=== PATIENT | male | born 1950 | race Caucasian/White ===

== ENCOUNTER 2023-01-02 09:15 | Outpatient (OUT) | payer MEDICARE, OTHER, SELFPAY ==
--- NOTE | 2023-01-02 09:31 | XR_ITS ---
[address] [address] Patient Name: GERRY LAY MRN: [id number] date: 1950 Sex: M Assigned Patient Location: LAB Current Patient Location: LAB Accession/Order Number: [id number] Exam Date: 01/02/2023 09:40 Report Date: 01/02/2023 10:07 At the request of: SERGIO CONNELL Procedure: XR chest 2V EXAM: XR chest 2V HISTORY: Hypertension I10 COMPARISON: None. TECHNIQUE: PA and lateral views of the chest. FINDINGS: The cardiomediastinal silhouette is normal. No focal consolidation is identified. There is no pneumothorax. No pleural effusion is noted. The osseous structures are intact. IMPRESSION: No acute cardiopulmonary process. Electronically authenticated by: DOMENIC RIVERA Date: 01/02/2023 10:07
[2023-01-02 09:35] LABS: Basophils Absolute Auto 0.1 10^3/uL (0.0-0.1); Basophils Percent Auto 1.2 % (0.2-2.0); Eosinophils Absolute Auto 0.5 10^3/uL (0.0-0.7); Eosinophils Percent Auto 10.2 % (0.9-7.0); Hematocrit 47.4 % (42.0-54.0); Immature Granulocytes Abs Auto 0.01 10^3/uL (0.00-0.03); Immature Granulocytes Pct Auto 0.2 % (0.0-0.5); Lymphocytes Absolute Auto 1.5 10^3/uL (1.2-3.8); Lymphocytes Percent Auto 30.6 % (20.5-60.0); Mean Corpuscular HGB Conc 33.8 g/dL (29.9-35.2); Mean Corpuscular Hemoglobin 31.7 pg (25.9-34.0); Mean Corpuscular Volume 93.9 fL (80.0-94.0); Mean Platelet Volume 10.3 fL (9.5-13.5); Monocytes Absolute Auto 0.6 10^3/uL (0.3-0.8); Monocytes Percent Auto 12.3 % (1.7-12.0); Neutrophils Absolute Auto 2.2 10^3/uL (1.4-6.5); Neutrophils Percent Auto 45.5 % (43.0-75.0); Platelet Count 176 10^3/uL (150-450); Red Blood Count 5.05 10^6/uL (4.70-6.10); White Blood Count 4.8 10^3/uL (4.0-11.0)
[2023-01-02 12:56] LABS: Anion Gap 11.8; BUN Creatinine Ratio 21.6; Calcium 9.7 mg/dL (8.5-10.1); Carbon Dioxide 29.7 mmol/L (21.0-32.0); Chloride 101 mmol/L (98-107); Estimated GFR (African America >60 (>=60); Estimated GFR (Non-African Ame >60 (>=60); Glucose 118 mg/dL (74-106); Potassium 3.5 mmol/L (3.5-5.1); Sodium 139 mmol/L (136-145); Thyroid Stimulating Hormone 2.218 uIU/mL (0.358-3.740)
[2023-01-02 13:06] LABS: Free T4 1.31 ng/dL (0.76-1.46)
== END 2023-01-02 09:16 | disposition home or self-care (01) ==
PROVIDERS: Family Provider Optometrist; PCP Family Medicine; Visit Provider Family Medicine
DX: I10 Essential (primary) hypertension (principal); E03.9 Hypothyroidism, unspecified
CPT/HCPCS: 36415; 71046; 80048; 84439; 84443; 85025

== ENCOUNTER 2023-01-23 09:43 | Outpatient (OUT) | payer MEDICARE, OTHER, SELFPAY ==
--- NOTE | 2023-01-23 09:51 | CT_ITS ---
[address] [address] Patient Name: GERRY LAY MRN: [id number] date: 1950 Sex: M Assigned Patient Location: CT Current Patient Location: CT Accession/Order Number: [id number] Exam Date: 01/23/2023 10:40 Report Date: 01/23/2023 12:25 At the request of: SERGIO CONNELL Procedure: CT chest w con EXAMINATION: CT chest w con HISTORY: Dyspnea On Exertion R06.09 , low O2 readings, dizziness COMPARISON: No relevant comparison available. TECHNIQUE: Multi-planar CT images were created with IV contrast. Axial, Coronal, and Sagittal images. Dose reduction techniques were achieved by using automated exposure control and/or adjustment of mA and/or kV according to patient size and/or use of iterative reconstruction technique. FINDINGS: LUNGS: 6 mm nodule left lower lobe axial image 62, irregularly-shaped. No additional pulmonary nodule or mass. No bronchiectasis or peribronchial thickening PLEURA: No mass, effusion, or pneumothorax. VASCULATURE: No filling defect within the central pulmonary arterial tree to suggest a pulmonary embolus LONG: No mass or adenopathy. MEDIASTINUM: No mass or adenopathy. CARDIAC: No enlargement or pericardial effusion. 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 No dissection CHEST WALL: No mass or axillary adenopathy. BONES: No bone lesion or fracture. Moderate diffuse spondylosis LIMITED ABDOMEN: Diffuse hypoattenuation of the liver, hepatic steatosis. Surgical clips from cholecystectomy OTHER: Negative. CT/CT chest w con IMPRESSION: No central pulmonary thromboembolic disease 6 mm ill-defined left lower lobe nodule, nonspecific Electronically authenticated by: BUNNY GOLDSTEIN Date: 01/23/2023 12:25
== END 2023-01-23 09:44 | disposition home or self-care (01) ==
LOC: CT 09:43
PROVIDERS: Family Provider Optometrist; PCP Family Medicine; Visit Provider Family Medicine
DX: R06.09 Other forms of dyspnea (principal); R42 Dizziness and giddiness; R91.1 Solitary pulmonary nodule
CPT/HCPCS: 71260; Q9967

== ENCOUNTER 2023-02-20 06:54 | Outpatient (RCR) | payer MEDICARE, OTHER, SELFPAY | END 2023-02-21 16:19 | disposition home or self-care (01) | LOC: PT 06:54 | PROVIDERS: Family Provider Optometrist; PCP Family Medicine; Visit Provider Family Medicine | DX: H81.13 Benign paroxysmal vertigo, bilateral (principal) | CPT/HCPCS: 97110; 97161 ==

== ENCOUNTER 2023-03-16 07:59 | Outpatient (OUT) | payer MEDICARE, OTHER, SELFPAY ==
--- NOTE | 2023-03-16 08:22 | CT_ITS ---
[address] [address] Patient Name: GERRY LAY MRN: [id number] date: 1950 Sex: M Assigned Patient Location: CT Current Patient Location: CT Accession/Order Number: [id number] Exam Date: 03/16/2023 08:20 Report Date: 03/16/2023 11:01 At the request of: SERGIO CONNELL Procedure: CT sinus wo con EXAM: CT sinus wo con CLINICAL INDICATION: Paroxysmal positional vertigo due to bilateral vestibular COMPARISON: None TECHNIQUE: Multiple thin axial images were obtained through the paranasal sinuses without the use of IV contrast. Additional coronal and sagittal reformatted images were submitted for evaluation. Dose reduction techniques were achieved by using automated exposure control and/or adjustment of mA and/or kV according to patient size and/or use of iterative reconstruction technique. FINDINGS: Frontal Sinuses: Clear. Frontal Recesses: Clear. Maxillary Sinuses: Right maxillary sinus is well aerated. Minimal frothy secretions in the left maxillary sinus. 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 Maxillary Infundibula: Clear. Ethmoid Sinuses: Clear. Sphenoid Sinuses: Clear. Sphenoethmoidal Recesses: Clear. Air-fluid levels: None. Periosteal thickening: None. Nasal Passage: Clear. Nasal Septum: Deviated towards the left. Lamina Papyracea: Intact. Ethmoidal Notch: No supraorbital pneumatization of ethmoid air cells above the anterior ethmoidal notch. Orbital Contents: Normal. Soft Tissues: Normal. CT/CT sinus wo con IMPRESSION: 1. Minimal frothy secretions in the left maxillary sinus. Remainder of the paranasal sinuses are well-aerated. No evidence of chronic sinusitis. 2. Bilateral ostiomeatal complexes are patent. Electronically authenticated by: TONA MESSER Date: 03/16/2023 11:01
== END 2023-03-16 08:00 | disposition home or self-care (01) ==
LOC: CT 07:59
PROVIDERS: Family Provider Optometrist; PCP Family Medicine; Visit Provider Family Medicine
DX: H81.13 Benign paroxysmal vertigo, bilateral (principal)
CPT/HCPCS: 70486

== ENCOUNTER 2023-05-04 09:04 | Outpatient (OUT) | payer MEDICARE, OTHER, SELFPAY ==
--- NOTE | 2023-05-04 09:25 | CT_ITS ---
[address] [address] Patient Name: GERRY LAY MRN: [id number] date: 1950 Sex: M Assigned Patient Location: LAB Current Patient Location: LAB Accession/Order Number: [id number] Exam Date: 05/04/2023 09:36 Report Date: 05/04/2023 23:07 At the request of: SERGIO CONNELL Procedure: CT chest w con EXAMINATION: CT chest w con HISTORY: Left Lower Lobe Pulmonary Nodule R91.1 , follow-up COMPARISON: CT chest 01/23/2023 TECHNIQUE: Multi-planar CT images were obtained without and/or with IV contrast as indicated by examination type. Axial, Coronal, and Sagittal images. Dose reduction techniques were achieved by using automated exposure control and/or adjustment of mA and/or kV according to patient size and/or use of iterative reconstruction technique. FINDINGS: LUNGS: Stable 6 mm irregular nodule versus infiltrate/scarring within the anterior lateral aspect of left lower lobe; adjacent mild stranding suggests scarring. Lungs are otherwise clear. PLEURA: No mass, effusion, or pneumothorax. VASCULATURE: No abnormality. LONG: No mass or adenopathy. MEDIASTINUM: No mass or adenopathy. CARDIAC: Atherosclerotic coronary artery disease. No pericardial effusion or significant enlargement. AORTA: No aneurysm or dissection. CHEST WALL: No mass or axillary adenopathy. BONES: No bone lesion or fracture. LIMITED ABDOMEN: No suspicious findings Limited images of the upper abdomen. OTHER: Negative. CT/CT chest w con IMPRESSION: 1. Stable 6 mm nodule versus scarring/infiltrate within left lower lobe over the past 3 months. Follow-up CT chest at 6, 12, and 24 months after discovery is recommended to document stability over a two-year period. Electronically authenticated by: AIXA DURANT Date: 05/04/2023 23:07
[2023-05-04 09:31] LABS: Estimated GFR (African America >60 (>=60); Estimated GFR (Non-African Ame >60 (>=60)
== END 2023-05-04 09:05 | disposition home or self-care (01) ==
LOC: LAB 09:04
PROVIDERS: Family Provider Optometrist; PCP Family Medicine; Visit Provider Family Medicine
DX: R91.1 Solitary pulmonary nodule (principal)
CPT/HCPCS: 36415; 71260; 82565; Q9967

== ENCOUNTER 2023-05-24 13:20 | Outpatient (OUT) | payer MEDICARE, OTHER, SELFPAY ==
--- NOTE | 2023-05-24 13:51 | XR_ITS ---
[address] [address] Patient Name: GERRY LAY MRN: [id number] date: 1950 Sex: M Assigned Patient Location: LAB Current Patient Location: Accession/Order Number: [id number] Exam Date: 05/24/2023 13:55 Report Date: 05/25/2023 00:40 At the request of: LUPE CAMACHO Procedure: XR abdomen 1V EXAMINATION: XR abdomen 1V HISTORY: Kidney Stone follow-up COMPARISON: XR KUB 05/03/2022 FINDINGS: KIDNEY/URETER - RIGHT: Small calcification projecting over kidney. KIDNEY/URETER - LEFT: Several small stones projecting over kidney. PELVIS: No visible ureteral stones. Stable pelvic calcifications favoring phleboliths. BOWEL: No abnormal dilation or deviation. BONES: No acute abnormality. Degenerative changes of the right hip joint. Prior left hip joint replacement. OTHER: Negative. No abnormal gaseous collections. XR/XR abdomen 1V IMPRESSION: 1. Bilateral nonobstructing nephrolithiasis. Electronically authenticated by: AIXA DURANT Date: 05/25/2023 00:40
[2023-05-24 14:50] LABS: Prostate Specific Antigen Dx 2.08 ng/mL (<=4.00)
== END 2023-05-24 13:21 | disposition home or self-care (01) ==
LOC: LAB 13:23
PROVIDERS: Family Provider Optometrist; PCP Family Medicine; Visit Provider Urology
DX: N20.0 Calculus of kidney (principal); N40.1 Benign prostatic hyperplasia with lower urinary tract symptoms
CPT/HCPCS: 36415; 74018; 84153

== ENCOUNTER 2023-10-29 13:09 | Outpatient (OUT) | payer MEDICARE, OTHER, SELFPAY ==
--- NOTE | 2023-10-29 13:40 | XR_ITS ---
The [address] [address] Patient Name: GERRY LAY MRN: [id number] date: 1950 Sex: M Assigned Patient Location: LAB Current Patient Location: LAB Accession/Order Number: [id number] Exam Date: 10/29/2023 13:50 Report Date: 10/29/2023 15:50 At the request of: LUPE CAMACHO Procedure: XR abdomen 1V EXAMINATION: XR abdomen 1V HISTORY: Kidney Stone COMPARISON: 05/24/2023 FINDINGS: KIDNEY/URETER - RIGHT: No visible renal or ureteral calcifications. KIDNEY/URETER - LEFT: Multiple stable left nephroliths measuring up to 4 mm PELVIS: No visible ureteral calcifications. Any visible calcifications favor phleboliths. BOWEL: No abnormal dilation or deviation. BONES: Moderate to severe degenerative changes of the spine. Moderate right hip osteoarthropathy. Left upper arthroplasty OTHER: Negative. No abnormal gaseous collections. XR/XR abdomen 1V IMPRESSION: Stable left nephrolithiasis Electronically authenticated by: BUNNY GOLDSTEIN Date: 10/29/2023 15:50
== END 2023-10-29 13:10 | disposition home or self-care (01) ==
LOC: LAB 13:13
PROVIDERS: Family Provider Optometrist; PCP Family Medicine; Visit Provider Urology
DX: N40.1 Benign prostatic hyperplasia with lower urinary tract symptoms (principal); N20.0 Calculus of kidney
CPT/HCPCS: 36415; 74018; 84153

== ENCOUNTER 2023-11-30 07:24 | Outpatient (OUT) | payer MEDICARE, OTHER, SELFPAY ==
--- OUTSIDE RECORDS SUMMARY | 2023-11-30 07:38 | XMS_ITS | CCD ---
Author Organization [facility] Care Team Providers Care Manager Furniture Name Role Phone REGINA CONNELL Primary Care Physician KO, DR REGINA Maldonado Attending Unavailable CONNELL, DR REGINA Maldonado Admitting Unavailable CONNELL, DR REGINA Maldonado Primary Care Unavailable Nidhi, DR Varner Consulting Unavailable KO, DR REGINA Maldonado Consulting Unavailable QUILES, DR ZULEIKA Ibrahim Consulting Unavailabl e DOUG, DR ANDRADE Attending Unavailable DOUG, DR ANDRADE Admitting Unavailable CONNELL, DR REGINA Maldonado Primary Care Unavailable BEAVER, DR ANDRADE Consulting Unavailable Ziebdaria, DR Varner Consulting Unavailable CONNELL, DR REGINA Maldonado Consulting Unavailable CONNELL, DR REGINA Maldonado Attending Unavailable CONNELL, DR REGINA Maldonado Admitting Unavailable CONNELL, DR REGINA Maldonado Primary Care Unavailable CONNELL, DR REGINA Maldonado Consulting Unavailable CONNELL, DR REGINA Maldonado Attending Unavailable CONNELL, DR REGINA Maldonado Admitting Unavailable CONNELL, DR REGINA Maldonado Primary Care Unavailable DOUG, DR ANDRADE Attending Unavailable DOUG, DR ANDRADE Admitting Unavailable CONNELL, DR REGINA Maldonado Primary Care Unavailable DOUG, DR ANDRADE Consulting Unavailable DOUG, DR ANDRADE Attending Unavailable BEAVER, DR ANDRADE Admitting Unavailable BEAVER, DR ANDRADE Consulting Unavailable KO, DR REGINA Maldonado Primary Care Unavailable RADHA PATEL Consulting Unavailable Regina Connell Unavailable BETSY CIFUENTES Attending Unavailable REGINA CONNELL Referring SUKHDEEP Kaye Attending Unavailable DO Sukhdeep Crockett Attending Provider [phone] MD Regina Connell Primary Care Provider Sukhdeep Crockett Attending Unavailable Sukhdeep Crockett Admitting Unavailable Regina Connell Primary Care Unavailable Juan BEAVER Attending Unavailable Juan BEAVER Attending Unavailable Juan BEAVER Attending Unavailable Allergies Allergy Classification Reported Allergen(s) Allergy Type Date of Onset Reaction(s) Facility (3 sources) Acetaminophen / oxyCODONE; Translations: [acetaminophen-oxyc odone] Drug Allergy Nausea and vomiting (disorder) [facility] Comment on above: Can take Calpine or hy drocodone without issue (17 sources) Codeine; Translations: [codeine] Drug Allergy 07-06-20 15 Nausea present (context-depen dent category) [facility] (6 sources) Penicillins; Translations: [penicillins] Drug allergy 07-09-18 62 fever [facility] (9 sources) Prochlorperazine; Translations: [prochlorperazine] Drug Allergy pt states family hx he has never had. sister x2 severe reaction muscle rigidity, Unknown [facility] (1 source) Acetaminophen / oxyCODONE Drug Allergy [facility] (1 source) Codeine Drug Allergy 09-16-19 14 [facility] (1 source) Prochlorperazine Drug Allergy 07-09-18 62 [facility] (11 sources) Penicillin G Drug Allergy Unknown [facility] Other (8 sources) Substance with penicillin structure and antibacterial mechanism of action (substance) Drug allergy 04-01-20 13 Unknown [facility] Other (8 sources) Compazine *ANTIPSYCHOTICS/ANT IMANIC AGENTS* Propensity to adverse reactions 04-01-20 13 Unknown [facility] Other (2 sources) patient allergy list reviewed by nurse or physicia Propensity to adverse reactions 11-08-19 14 Comment:Done [facility] Other (2 sources) Allergies Reconciled Propensity to adverse reactions Unknown [facility] Other (1 source) Codeine Drug Allergy 06-14-20 23 [facility] Rep[facility] (1 source) Penicillin Drug Allergy 06-14-20 23 [facility] (1 source) Prochlorperazine Drug Allergy 06-14-20 [facility] (1 source) Unable to Assess Drug allergy (disorder) 06-21-20 [facility] Rep[facility] (1 source) Acetaminophen / oxyCODONE; Translations: [Percocet 5/325] Drug Allergy [facility] Repository Medications Current Medications Medication Drug Class(es) Dates Sig (Normalized) Sig (Original) acetaminophen 325 mg / HYDROcodone bitartrate 5 mg oral tablet (1 source) Opioid Agonist Start: 1 Calpine 325 mg-5 mg oral tablet 1 tab(s), Oral, TID for pain, 20 tab(s), Refill(s) 0, [id number], 177.8, cm, 06/07/21 13:24:00 EST, Height/Length Dosing, 113, kg, 06/07/21 13:24:00 EST, Weight Dosing Start Date: 06/20/21 Status: Ordered CoQ10 (3 sources) Start: 1 take 300 mg by mouth once daily CoQ10 300 mg, Oral, Daily, Refills(s) 0, Prophylaxis Start Date: 04/21/21 Status: Ordered hydroCHLOROthiazide 25 mg oral tablet (14 sources) Thiazide Diuretic Start: 6 take 1 tablet by mouth once daily hydrochlorothiazide 25 mg Tab 25 mg = 1 tab(s), Oral, Daily, Refills(s) 0 Start Date: 01/26/16 Status: Ordered levothyroxine sodium 0.088 mg oral tablet (14 sources) l-Thyroxine Start: 3 take 1 tablet by mouth every twenty-four hours Levothyroxine Sodium 88 MCG 1 tablet Orally Once a day for 90 days Aug, Active Start: 06-07-2021 take 1 tablet by sondra th once daily levothyroxine 75 mcg (0.075 mg) Tab 75 mcg = 1 tab(s), Oral, Daily, Thyroid Start Date: 06/07/21 Status: Ordered Start: 06-07-2021 take 1 tablet by sondra th once daily levothyroxine 75 mcg (0.075 mg) Tab 75 mcg = 1 tab(s), Oral, Daily, Thyroid Start Date: 06/07/21 Status: Ordered loratadine 10 mg oral tablet (11 sources) take 1 tablet by mouth every twenty-four hours Claritin 10 MG 1 tablet Orally Once a day Active ondansetron 4 mg oral tablet (6 sources) Serotonin-3 Receptor Antagonist take 1 tablet by mouth three times daily as needed Ondansetron HCl 4 MG 1 tablet Orally tid prn for 10 days Active rosuvastatin calcium 20 mg oral tablet (14 sources) HMG-CoA Reductase Inhibitor Start: 08-16-19 take 1 tablet by mouth every twenty-four hours Rosuvastatin Calcium 20 MG 1 tablet Orally Once a day for 90 days Aug, Active Start: 11-24-2016 take 20 mg by mouth at bedtime Crestor 20 mg, Oral, Bedtime, Refills(s) 0, High cholesterol Start Date: 11/24/16 Status: Ordered tadalafil 20 mg oral tablet (1 source) Phosphodiesterase 5 Inhibitor Start: 11-02-2023 Cialis 20 mg Tab 20 mg = 1 tab(s), Oral, As Directed, PRN erectile dysfunction, # 30 tab(s), Refills(s) 3, Pharmacy: [id number], 178, cm, 11/02/23 11:57:00 EDT, Height/Length Dosing, 102, kg, 11/02/23 11:57:00 EDT, Weight Dosing Start Date: 11/02/23 Status: Ordered tamsulosin hydrochloride 0.4 mg oral capsule (14 sources) alpha-Adrenergic Jori Start: 01-17-2021 take 1 capsule by mouth twice daily Flomax 0.4 mg Cap 0.4 mg = 1 cap(s), Oral, BID, # 180 cap(s), Refills(s) 3, Pharmacy: [id number], 178, cm, 05/29/22 9:35:00 EST, Height/Length Dosing, 102.2, kg, 05/29/22 9:35:00 EST, Weight Dosing Start Date: 11/02/22 Status: Ordered Completed/Discontinued Medications Medication Drug Class(es) Dates Sig (Normalized) Sig (Original) methylPREDNISolone (11 sources) Corticosteroid Start: 03-01-2015 Depo-Medrol 80 mg Feb, 80 mg sulfamethoxazole 800 mg / trimethoprim 160 mg oral tablet (8 sources) Dihydrofolate Reductase Inhibitor Antibacterial, Sulfonamide Antimicrobial Start: 02-22-2023 take 1 tablet by mouth every twelve hours Bactrim DS 800-160 MG 1 tablet Orally Twice a day for 10 day(s) Feb, Not-Taking Problems Active Problems Problem Classification Problem Date Documented Date Episodic/Chronic Allergic reactions (16 sources) Contact dermatitis due to drugs AND/OR medicine; Translations: [Contact dermatitis and other eczema due to drugs and medicines in contact with skin] Onset: 6 Episodic Calculus of urinary tract (19 sources) Kidney stone; Translations: [Calculus of kidney] Onset: 5 Episodic Comment on above: in 2013 Conditions associated with dizziness or vertigo (2 sources) Benign paroxysmal vertigo, bilateral Episodic Diabetes mellitus without complication (9 sources) Other abnormal glucose; Translations: [Abnormal glucose level] Onset: 2 Episodic Disorders of lipid metabolism (20 sources) Hyperlipidemia; Translations: [Hyperlipidemia, unspecified] Onset: 5 04-14-2020 Chronic Essential hypertension (20 sources) Essential (primary) hypertension; Translations: [Essential hypertension] Onset: 6 Chronic Genitourinary symptoms and ill-defined conditions (6 sources) Microscopic hematuria; Translations: [Nocturia] 04-21-2021 Episodic Hyperplasia of prostate (19 sources) Benign prostatic hypertrophy with outflow obstruction; Translations: [Benign prostatic hyperplasia with lower urinary tract symptoms] Onset: 6 Chronic Immunizations and screening for infectious disease (8 sources) Vaccination given; Translations: [Encounter for immunization] Episodic Malaise and fatigue (9 sources) Other fatigue; Translations: [Fatigue] Onset: 2 Episodic Neoplasms of unspecified nature or uncertain behavior (8 sources) Neoplasm of uncertain behavior of skin; Translations: [Neoplasm of uncertain behavior of skin] Episodic Other circulatory disease (4 sources) Other specified symptoms and signs involving the circulatory and respiratory systems; Translations: [OTH SPEC SX SIGNS INVLV CIRC RS] Onset: 2 Episodic Other circulatory disease (8 sources) Cardiovascular symptoms; Translations: [Other specified symptoms and signs involving the circulatory and respiratory systems] Episodic Other circulatory disease (8 sources) Elevated blood-pressure reading without diagnosis of hypertension; Translations: [Elevated blood-pressure reading, without diagnosis of hypertension] Episodic Other connective tissue disease (8 sources) Pain in left lower limb; Translations: [Pain in left leg] Episodic Other diseases of kidney and ureters (1 source) Urinary tract obstruction; Translations: [Other obstructive and reflux uropathy] Onset: 2 Episodic Other lower respiratory disease (1 source) Other forms of dyspnea Episodic Other lower respiratory disease (2 sources) Nodule of lung; Translations: [Solitary pulmonary nodule] Episodic Other lower respiratory disease (1 source) Solitary pulmonary nodule Episod ic Other male genital disorders (2 sources) Male erectile dysfunction, unspecified; Translations: [Erectile dysfunction] Onset: 4 Chronic Other non-epithelial cancer of skin (3 sources) History of malignant neoplasm of skin 04-14-2020 Episodic Other nutritional; endocrine; and metabolic disorders (8 sources) Obese class I; Translations: [Body mass index (BMI) 34.0-34.9, adult] Chronic Other nutritional; endocrine; and metabolic disorders (16 sources) Obese class II; Translations: [Body mass index (BMI) 36.0-36.9, adult] Onset: 9 Chronic Other nutritional; endocrine; and metabolic disorders (8 sources) Obesity; Translations: [Obesity, unspecified] Onset: 5 Chronic Other nutritional; endocrine; and metabolic disorders (3 sources) History of hypercholesterolemia 11-24-2016 Episodic Other screening for suspected conditions (not mental disorders or infectious disease) (4 sources) Raised prostate specific antigen; Translations: [Elevated prostate specific antigen [PSA]] Onset: 4 04-14-2020 Episodic Other upper respiratory disease (8 sources) Seasonal allergic rhinitis; Translations: [Other seasonal allergic rhinitis] Onset: 9 Chronic Other upper respiratory disease (8 sources) Allergic rhinitis; Translations: [Allergic rhinitis, cause unspecified] Onset: 6 Chronic Other upper respiratory infections (8 sources) Chronic sinusitis; Translations: [Chronic sinusitis, unspecified] Chronic Residual codes; unclassified (8 sources) Requires influenza virus vaccination; Translations: [Need for prophylactic vaccination and inoculation, Influenza] Episodic Thyroid disorders (20 sources) Hypothyroidism; Translations: [Hypothyroidism, unspecified] Onset: 7 04-14-2020 Chronic Transient cerebral ischemia (8 sources) Transient global amnesia; 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] Onset: 5 Chronic Unclassified (2 sources) CONTACT W/AND (SUSP) EXPOS COVID-19; Translations: [CONTACT W/AND (SUSP) EXPOS COVID-19] Onset: 2 Unclassified (1 source) Other specified hearing loss, bilateral; Translations: [Other specified hearing loss, bilateral] Onset: 3 Viral infection (9 sources) COVID-19; Translations: [Disease caused by 2019-nCoV] Onset: 2 Past or Other Problems Problem Classification Problem Date Documented Da te Episodic/Chronic Other non-traumatic joint disorders (8 sources) Shoulder joint pain; Translations: [Pain in unspecified shoulder] Onset: 06-02-2013 Episodic Other nutritional; endocrine; and metabolic disorders (8 sources) Abnormal weight gain; Translations: [Abnormal weight gain] Onset: 12-28-2016 Episodic Other upper respiratory infections (20 sources) Acute maxillary sinusitis; Translations: [Acute recurrent maxillary sinusitis] Onset: 11-07-2013 Episodic Skin and subcutaneous tissue infections (8 sources) Erythrasma; Translations: [Erythrasma] Onset: 01-19-2016 Episodic Unclassified (1 source) CONTACT W/AND (SUSP) EXPOS COVID-19; Translations: [CONTACT W/AND (SUSP) EXPOS COVID-19] Onset: 11-23-2021 Results Test Name Value Interpretation Reference Range Facility Patient Education 11-02-19 Patient Education [facility] Erectile Dysfunction Erectile dysfunction (ED) is the inability to get or keep an erection in order to have sexual intercourse. ED is considered a symptom of an underlying disorder and is not considered a disease. ED may include: ? Inability to get an erection. ? Lack of enough hardness of the erection to allow penetration. ? Loss of erection before sex is finished. What are the causes? This condition may be caused by: ? Physical causes, such as: ? Artery problems. This may include heart disease, high blood pressure, atherosclerosis, and diabetes. ? Hormonal problems, such as low testosterone. ? Obesity. ? Nerve problems. This may include back or pelvic injuries, multiple sclerosis, Parkinson's disease, spinal cord injury, and stroke. ? Certain medicines, such as: ? Pain relievers. ? Antidepressants. ? Blood pressure medicines and water pills (diuretics). ? Cancer medicines. ? Antihistamines. ? Muscle relaxants. ? Lifestyle factors, such as: ? Use of drugs such as marijuana, cocaine, or opioids. ? Excessive use of alcohol. ? Smoking. ? Lack of physical activity or exercise. ? Psychological causes, such as: ? Anxiety or stress. ? Sadness or depression. ? Exhaustion. ? Fear about sexual performance. ? Guilt. What are the signs or symptoms? Symptoms of this condition include: ? Inability to get an erection. ? Lack of enough hardness of the erection to allow penetration. ? Loss of the erection before sex is finished. ? Sometimes having normal erections, but with frequent unsatisfactory episodes. ? Low sexual satisfaction in either partner due to erection problems. ? A curved penis occurring with erection. The curve may cause pain, or the penis may be too curved to allow for intercourse. ? Never having nighttime or morning erections. How is this diagnosed? This condition is often diagnosed by: ? Performing a physical exam to find other diseases or specific problems with the penis. ? Asking you detailed questions about the problem. ? Doing tests, such as: ? Blood tests to check for diabetes mellitus or high cholesterol, or to measure hormone levels. ? Other tests to check for underlying health conditions. ? An ultrasound exam to check for scarring. ? A test to check blood flow to the penis. ? Doing a sleep study at home to measure nighttime erections. How is this treated? This condition may be treated by: ? Medicines, such as: ? Medicine taken by mouth to help you achieve an erection (oral medicine). ? Hormone replacement therapy to replace low testosterone levels. ? Medicine that is injected into the penis. Your health care provider may instruct you how to give yourself these injections at home. ? Medicine that is delivered with a short applicator tube. The tube is inserted into the opening at the tip of the penis, which is the opening of the urethra. A tiny pellet of medicine is put in the urethra. The pellet dissolves and enhances erectile function. This is also called MUSE (medicated urethral system for erections) therapy. ? Vacuum pump. This is a pump with a ring on it. The pump and ring are placed on the penis and used to create pressure that helps the penis become erect. ? Penile implant surgery. In this procedure, you may receive: ? An inflatable implant. This consists of cylinders, a pump, and a reservoir. The cylinders can be inflated with a fluid that helps to create an erection, and they can be deflated after intercourse. ? A semi-rigid implant. This consists of two silicone rubber rods. The rods provide some rigidity. They are also flexible, so the penis can both curve downward in its normal position and become straight for sexual intercourse. ? Blood vessel surgery to improve blood flow to the penis. During this procedure, a blood vessel from a different part of the body is placed into the penis to allow blood to flow around (bypass) damaged or blocked blood vessels. ? Lifestyle changes, such as exercising more, losing weight, and quitting smoking. Follow these instructions at home: Medicines ? Take [id number] and prescription medicines only as told by your health care provider. Do not increase the dosage without first discussing it with your health care provider. ? If you are using self-injections, do injections as directed by your health care provider. Make sure you avoid any veins that are on the surface of the penis. After giving an injection, apply pressure to the injection site for 5 minutes. ? Talk to your health care provider about how to prevent headaches while taking ED medicines. These medicines may cause a sudden headache due to the increase in blood flow in your body. General instructions ? Exercise regularly, as directed by your health care provider. Work with your health care provider to lose weight, if needed. ? Do not use any products that contain nicotine or tobacco. These products include cig (more content not included)... [facility] Urology Office/Clinic Noteon 11-02-2023 Urology Office/Clinic Note Chief Complaint 1yr PSA & KUB HPI Staff 16 month f/u with PSA and KUB. (pt went to [place] for 3m) Dx: kidney stone and BPH with urinary obstruction PSA 04/15/21 - 2.07 05/03/22 - 2.63 05/24/23 - 2.08 10/29/23- 3.70 KUB 05/24/23 showed bilateral nonobstructing nephrolithiasis 10/29/23 *Stable Lt Nephrolithiasis Tamsulosin 0.4mg BID Denies all urinary sx. Denies sx of Kidney Stones. History of Present Illness Tests reviewed: reviewed UA, KUB, and PSA. I have reviewed the previous health record information and history for this patient from Dr. Beaver. I have reviewed and verified the staff HPI to be accurate for this encounter. There have been no associated fever, chills, flank pain, or blood in the urine. Denies any urinary infections since last encounter. Review of Systems PHQ Score Initial Depression Screen Score: 0 SCORE ROS - Provider Constitutional: denies weight loss, denies hot flashes. Eyes: denies eye problems. Gastrointestinal: denies nausea, denies vomiting. Cardiovascular: denies chest pain or angina. Integumentary: no dryness Musculoskeletal: denies musculoskeletal symptoms. ENMT: denies otolaryngeal symptoms. Respiratory: no shortness of breath. Heme/Lymph: denies easy bleeding tendency, denies easy bruising tendency. Psychiatric: no confusion, no anxiety. Genitourinary: See HPI. Physical Exam Vitals & Measurements HR: 80(Peripheral) RR: 16 BP: 132/89 HT: 70 in HT: 178 cm WT: 102 kg WT: 224.4 lb BMI: 32.19 General Appearance: alert, no distress, well nourished, well developed male. Prostate: normal prostate, estimated weight 40 gms, no hard nodule observed. Assessment/Plan 1. Elevated PSA (R97.20: Elevated prostate specific antigen [PSA]) PSA: 04/15/21 - 2.07 05/03/22 - 2.63 05/24/23 - 2.08 10/29/23 - 3.70 Rise in PSA is unfavorable. Will repeat in 3 months. Consider bx if PSA continues to rise. -Follow up in 05/2024 with PSA prior pending repeat level 2. BPH with urinary obstruction (N40.1: Benign prostatic hyperplasia with lower urinary tract symptoms) Taking Flomax 0.4mg bid. Experiencing retrograde ejaculation. Reports he decreased Flomax to qd and he no longer experienced retrograde ejaculation. UA today neg. No urinary concerns. CARMEN: 40g, no nodules. 3. Kidney stone (N20.0: Calculus of kidney) Hx of kidney stones with multiple lithotripsy procedures in the past. KUB 05/03/22 shows several tiny calcifications projecting over left kidney. No right renal or ureteral calcifications. KUB 05/24/23 shows small right calcification projecting over kidney. Several small left stones projecting over kidney. KUB 10/29/23 shows multiple stable left nephroliths measuring up to 4 mm. Denies pain or passage of stones since last visit. 4. Erectile dysfunction (N52.9: Male erectile dysfunction, unspecified) Pt reports he is able to achieve 60% of an erection. Discussed options for ED, including oral medications, erection pumps, MUSE intraurethral pellet, intracorporal injection therapy, and surgical options. -Will start Cialis 20mg prn. Monitor for SEs. Follow-up With When Contact Information DOUG NATHAN, Juan Phan, [address] [place] [address]- Additional Instructions: 7 mos w/ PSA Patient Education Erectile Dysfunction I, Adriana Crane, personally scribed for Dr. Beaver on 11/02/2023 13:18:58. . Documentation recorded by the scribe, Adriana Crane, accurately reflects the services(s) I performed and decisions made by me. Authenticated by Dr. Beaver on 11/02/2023 13:20:13. Problem List/Past Medical History Ongoing BPH with urinary obstruction Elevated PSA Erectile dysfunction History of skin cancer Hyperlipemia Hypothyroidism Kidney stone Microhematuria Nocturia Historical No qualifying data Procedure/Surgical History ESWL - Extracorporeal shockwave lithotripsy for renal calculus (06/16/2021), Right knee arthroscopy with partial medial meniscectomy in addition to chondroplasty, patellofemoral articulation (11/29/2016), Left hip arthroplasty (02/15/2016), ESWL of kidney (11/2012), ESWL of kidney (07/24/2010), Cystoscopic removal of ureteric stent (01/27/2008), Cystoscope (01/20/2008), Cystoscope (02/14/2007), Lithotripsy of kidney (01/24/2007), Arthroscope, Cholecystectomy, Excision of basal cell carcinoma, Tonsillectomy with adenoidectomy. Medications Cialis 20 mg Tab, 20 mg= 1 tab(s), Oral, As Directed, PRN, 3 refills CoQ10, 300 mg, Oral, Daily Crestor, 20 mg, Oral, Bedtime Flomax 0.4 mg Cap, 0.4 mg= 1 cap(s), Oral, BID, 3 refills hydrochlorothiazide 25 mg Tab, 25 mg= 1 tab(s), Oral, Daily levothyroxine 75 mcg (0.075 mg) Tab, 75 mcg= 1 tab(s), Oral, Daily Allergies Compazine (pt states family hx he has never had. sister x2 severe reaction muscle rigidity) Percocet 5/325 (N&V - Nausea and vomiting) codeine (Nausea present) (more content not included)... [facility] Comment on above: Result Comment: Elec tronically Signed By: Juan BEAVER MD\.br\Date and Time Signed: 11/02/23 13:20 EDT\.br\Electronically Co-Signed By: Adriana Crane\.br\Date and Time Co-Signed: 11/02/23 13:19 EDT Lab Reportson 10-30-2023 Lab Reports [id number] #[id number] [facility] RAD - MISCon 10-30-2023 RAD - MISC [id number] #1.00TIFF [facility] US carotid doppler BIon 06-08 US carotid doppler BI [facility] [place] [address] Ultrasound Report Signed Patient: Gerry Lay MR#: [id number] : 1950 Acct:[id number] Age/Sex: 72 / M ADM Date: 06/21/23 Loc: MR Room: Type: [facility] Attending Dr: Sukhdeep Crockett DO Ordering Provider: Sukhdeep Crockett DO Date of Service: 06/21/23 US/US carotid doppler BI: H91.8x3, H81.391, R42 Copies to: Sukhdeep Crockett DO CAROTID DUPLEX INDICATION: Right facial numbness PROCEDURE: Color-flow duplex scanning is used to interrogate the extracranial carotid arterial system, as well as both vertebral arteries. The proximal right internal carotid artery shows a highest peak systolic velocity of 96.2 cm/s with an end-diastolic velocity of 28.6 cm/s . The mid internal carotid artery measures 86.6 cm/s peak systolic with an end-diastolic velocity of 32.9 cm/s . The distal segment measures 88.4 cm/s peak systolic with an end diastolic velocity of 26.9 cm/s . The velocities of the right common carotid artery are 106 cm/s peak systolic and 15.5 cm/s end- diastolic proximally and 84.5 cm/s peak systolic and 17.4 cm/s end-diastolic distally. The peak systolic velocity ratio of the internal to the common carotid artery is 1.14 . The right external carotid artery measures 149 cm/s peak systolic. The right vertebral artery is patent at 55.9 cm/s peak systolic and with antegrade flow. The proximal left internal carotid artery shows a highest peak systolic velocity of 63.9 cm/s with an end-diastolic velocity of 19.2 cm/s . The mid internal carotid artery measures 61.4 cm/s peak systolic with an end-diastolic velocity of 16.7 cm/s . The distal segment measures 79.1 cm/s peak systolic with an end diastolic velocity of 22.6 cm/s . The velocities of the left common carotid artery are 138 cm/s peak systolic and 16.5 cm/s end-diastolic proximally and 125 cm/s peak systolic and 18.2 cm/s end-diastolic distally. The peak systolic velocity ratio of the internal to the common carotid artery is 0.63 . The left external carotid artery measures 75.2 cm/s peak systolic. The left vertebral artery is patent at 39.8 cm/s peak systolic with antegrade flow. US/US carotid doppler BI IMPRESSION: NO HEMODYNAMICALLY SIGNIFICANT STENOSIS OF EITHER EXTRACRANIAL INTERNAL CAROTID ARTERY. BOTH VERTEBRAL ARTERIES ARE PATENT WITH ANTEGRADE FLOW. Impression dictated by: Mayo Sheikh M.D.06/22/2023 3:21 PM Dictation Location: RAD-DOC-04 Tech: Yen Estrella Transcribed By: ESE 06/22/23 152 Dictated By: Mayo Sheikh MD 06/22/23 152 Signed By: 06/22/23 152 [facility] Sandra [facility] 06-21-2023 Creatinine [Mass/Vol] 1.3 mg/dL Normal 0.6-1.3 [facility] Comment on above: Result Comment: ER/E SD physician is notified/shown all ISTAT results. Critical values may be confirmed by laboratory testing if deemed necessary by ER attending doctor. Performed By: #### I SCRE #### [address] ISTAT GFR 58.368 Normal [facility] Comment on above: Result Comment: PERF ORMED BY: [place] [address] PATHOLOGIST HUMAN CAPITAL MANAGER LOGAN SERNA M.D. Performed By: #### I SCRE #### [facility] [address] [place] [address] MR head/brain wo/w conon MR head/brain wo/w con [facility] Main [place] [address] [place] [address] MRI Report Signed Patient: Gerry Lay MR#: [id number] : 1950 Acct:[id number] Age/Sex: 72 / M ADM Date: 06/21/23 Loc: MR Room: Type: [facility] Attending Dr: Sukhdeep Crockett DO Copies to: Sukhdeep Crockett DO Ordering Provider: Sukhdeep Crockett DO Date of Service: 06/21/23 MR/MR head/brain wo/w con: H91.8x3, H81.391, R42 MR head/brain wo/w con 06/21/2023 11:28 AM SIGN AND SYMPTOMS: Vertigo, history of chronic sinus infections PROTOCOL: Multiplanar multisequence MR images of the brain were obtained with and without IV contrast COMPARISON: None. FINDINGS: Extra axial spaces: There is mild diffuse age-related cortical atrophy. Hemorrhage: None. Ventricular system: Within normal limits. Basal cisterns: Within normal limits and not effaced. Cerebral parenchyma: Periventricular and subcortical white matter T2 and FLAIR hyperintense signal is noted consistent with chronic microvascular ischemic change. Midline shift: None.. Cerebellum: Within normal limits. Brainstem: Within normal limits. Cerebellar pontine angles: No mass or abnormal enhancement. Internal auditory canals: There is a vascular loop projecting approximately 50% of the way into the right internal auditory canal closely approximating the right 7th and 8th cranial nerves. There is no mass or abnormal enhancement. Temporal bone structures: Within normal limits. OTHER: Calvarium: Normal marrow signal. Vascular system: Satisfactory flow voids within the anterior and posterior circulation. Visualized Paranasal sinuses: There is mild mucosal thickening in the left maxillary sinus. Visualized Orbits: Within normal limits. Visualized upper cervical spine: Within normal limits. Sella and skull base: Within normal limits. MR/MR head/brain wo/w con IMPRESSION: There is a vascular loop projecting approximately 50% of the way into the right internal auditory canal closely approximating the right 7th and 8th cranial nerves. Correlation with clinical signs of vascular nerve compression is recommended. There is no mass or abnormal enhancement. The cerebellopontine angles, left internal auditory canal, and temporal bones are within normal limits. Periventricular and subcortical white matter T2 and FLAIR hyperintense signal is noted consistent with chronic microvascular ischemic change. There is mild diffuse age-related cortical atrophy. Impression dictated by: Eloy Barnard M.D.06/21/2023 5:08 PM Dictation Location: [place] [address] Transcribed By: [facility] 06/21/231707 Dictated By: Eloy Barnard II, MD 06/21/23 1646 Signed By: 06/21/231707 [facility] RAD - MISCon 05-30-2023 RAD - MISC [id number] #1.00TIFF [facility] Lab Reportson 05-28-2023 Lab Reports [id number] #1.00TIFF [facility] Physician Orderon 05-07-2023 Physician Order [id number]# 1.00TIFF [facility] Physician Order [id number] #1.00TIFF [facility] US CAROTID ART BILon 022 US CAROTID ART LOUISE EXAMINATION: US CAROTID ART LOUISE HISTORY: Cardiovascular symptoms ; migraine headaches COMPARISON: No relevant comparison available. TECHNIQUE: Duplex Doppler ultrasound analysis of carotid and vertebral arteries. . Bilateral carotid arterial duplex examination was performed using B-mode, color flow and spectral analysis. Carotid stenosis is reported according to validated velocity parameters, similar to NASCET criteria. FINDINGS: RIGHT CAROTID ARTERY: Mild plaque without significant stenosis or significant plaque. RIGHT VERTEBRAL: Antegrade flow. Subclavian: PSV: 107.6 cm/s EDV: 0.0 cm/s CCA: Prox: PSV: 82.3 cm/s EDV: 13.7 cm/s Mid: PSV: 91.4 cm/s EDV: 20.2 cm/s Distal: PSV: 77.1 cm/s EDV: 18.9 cm/s BULB: PSV: 57.8 cm/s EDV: 12.8 cm/s ICA: Prox: PSV: 59.0 cm/s EDV: 22.8 cm/s Mid: PSV: 63.3 cm/s EDV: 24.5 cm/s Distal: PSV: 76.2 cm/s EDV: 28.3 cm/s ECA: PSV: 148.5 cm/s EDV: 25.3 cm/s VERTEBRAL: PSV: 41.7 cm/s EDV: 17.5 cm/s ICA/CCA ratio: PSV: 0.8 EDV: 1.4 LEFT CAROTID ARTERY: Mild plaque without significant stenosis or significant plaque. LEFT VERTEBRAL: Antegrade flow. Subclavian: PSV: 122.6 cm/s EDV: 9.5 cm/s CCA: Prox: PSV: 148.5 cm/s EDV: 23.0 cm/s Mid: PSV: 101.6 cm/s EDV: 16.0 cm/s Distal: PSV: 80.6 cm/s EDV: 20.8 cm/s BULB: PSV: 66.1 cm/s EDV: 11.1 cm/s ICA: Prox: PSV: 58.0 cm/s EDV: 17.6 cm/s Mid: PSV: 82.2 cm/s EDV: 28.9 cm/s Distal: PSV: 67.7 cm/s EDV: 27.3 cm/s ECA: PSV: 43.9 cm/s EDV: 9.8 cm/s VERTEBRAL: PSV: 35.0 cm/s EDV: 7.1 cm/s ICA/CCA ratio: PSV: 0.6 EDV: 1.3 IMPRESSION: 1. 0-49% flow stenosis within the right and left carotid arteries. 2. Mild atherosclerotic disease. Electronically authenticated by: AIXA DURANT Date: 2022-06-21 23:19 Normal [facility] CBC AUTO DIFFon 06-21-2022 BASO # 0.1 103/ul Normal 0.0-0.1 [facility] Comment on above: Performed By: #### C BC ####[facility] [address] [place] [address]Dr. Giacomo Chambers Basophils/100 WBC (Bld) 0.9 % Normal 0.2-2.0 [facility] Comment on above: Performed By: #### C BC ####[facility] [address] [place], [place] [address]DrCamila Chambers EO # 0.2 103/ul Normal 0.0-0.7 [facility] Comment on above: Performed By: #### C BC ####[facility] [address] [place] [address]Dr. Giacomo Chambers Eosinophils/100 WBC (Bld) 3.0 % Normal 0.9-7.0 [facility] Comment on above: Performed By: #### C BC ####[facility] [address] [place] [address]Dr. Giacomo Chambers Erythrocyte distribution width (RBC) [Ratio] 12.7 % Normal 11.0-15.0 [facility] Comment on above: Performed By: #### C BC ####[facility] [address] [place], [place] [address]DrCamila Chambers Hematocrit (Bld) [Volume fraction] 48.4 % Normal 42.0-54.0 [facility] Comment on above: Performed By: #### C BC ####[facility] [address] [place], [place] [address]DrCamila Chambers Hemoglobin (Bld) [Mass/Vol] 16.1 g/dL Normal 14.0-18.0 [facility] Comment on above: Performed By: #### C BC ####[facility] [address] [place] [address]Dr. Giacomo Chambers IG # 0.01 10e3/ul Normal 0.00-0.03 [facility] Comment on above: Performed By: #### C BC ####[facility] [address] [place] [address]Dr. Giacomo Chambers IG % 0.2 % Normal 0.0-0.5 [facility] Comment on above: Performed By: #### C BC ####[facility] E[address] [place], [place] [address]Dr. Giacomo Chambres LYMPH # 2.1 103/ul Normal 1.2-3.8 [facility] Comment on above: Performed By: #### C BC ####[facility] S[address] [place], [place] [address]Dr. Giacomo Chambers Lymphocytes/100 WBC (Bld) 36.7 % Normal 20.5-60.0 [facility] Comment on above: Performed By: #### C BC ####[facility] [address] [place], [place] [address]Dr. Giacomo Chambers MANUAL DIFF REQ NO Normal [facility] Comment on above: Performed By: #### C BC ####[facility] [address] [place] [address]Dr. Giacomo Chambers MCH (RBC) [Entitic mass] 30.6 pg Normal 25.9-34.0 [facility] Comment on above: Performed By: #### C BC ####[facility] N[address]fr[address] [place], [place] [address]Dr. Giacomo Chambers MCHC (RBC) [Mass/Vol] 33.3 g/dL Normal 29.9-35.2 [facility] Comment on above: Performed By: #### C BC ####[facility] Z[address] [place], [place] [address]Dr. Giacomo Chambers MCV (RBC) [Entitic vol] 91.8 fL Normal 80.0-94.0 [facility] Comment on above: Performed By: #### C BC ####[facility] [address] [place] [id number]. Giacomo Chambers MONO # 0.7 103/ul Normal 0.3-0.8 [facility] Comment on above: Performed By: #### C BC ####[facility] [address] [place] [id number]. Giacomo Chambers Monocytes/100 WBC (Bld) 12.1 % Critically high 1.7-12.0 [facility] Comment on above: Performed By: #### C BC ####[facility] [address] [place], [place] [address]Dr. Giacomo Chambers NEUT # 2.6 103/ul Normal 1.4-6.5 [facility] Comment on above: Performed By: #### C BC ####[facility] [address] [place], [place] [address]Dr. Giacomo Chambers Neutrophils/100 WBC (Bld) 47.1 % Normal 43.0-75.0 [facility] Comment on above: Performed By: #### C BC ####[facility] [address] [place], [place] [address]Dr. Giacomo Chambers Platelet mean volume (Bld) [Entitic vol] 10.0 fL Normal 9.5-13.5 [facility] Comment on above: Performed By: #### C BC ####[facility] [address] [place] [id number]. Giacomo Chambers PLT 188 103/ul Normal 150-450 [facility] Comment on above: Performed By: #### C BC ####[facility] [address] [place], [place] [address]Dr. Giacomo Chambers RBC 5.27 106/ul Normal 4.70-6.10 [facility] Comment on above: Performed By: #### C BC ####[facility] [address] [place] [id number]. Giacomo Chambers WBC 5.6 103/ul Normal 4.0-11.0 [facility] Comment on above: Performed By: #### C BC ####[facility] [address] [place] [id number]. Giacomo Chambers FREE T4on 06-21-2022 Free T4 [Mass/Vol] 1.19 ng/dL Normal 0.76-1.46 [facility] Comment on above: Performed By: #### F T4 ####[facility] [address] [place] [id number]. Giacomo Chambers GLYCOHEMOGLOBIN A1Con 2021 ADA RECOMMENDATION SEE BELOW Normal [facility] Comment on above: Result Comment: ADA RECOMMENDED LIMIT 4.0 - 6.0 ADA THERAPEUTIC TARGET < 7.0 ACTION SUGGESTED > 7.0 Performed By: #### A 1C ####[facility] [address] [place] [address]Dr. Giacomo Chambers Glucose [Mass/Vol] 134 mg/dL Normal [facility] Comment on above: Performed By: #### A 1C ####[facility] [address] [place] [address]Dr. Giacomo Chambers HbA1c (Bld) [Mass fraction] 6.3 % Critically high 4.5-6.2 [facility] Comment on above: Performed By: #### A 1C ####[facility] [address] [place] [address]Dr. Giacomo Chambers LIPID PROFILEon 06-21-2022 CHOL-HDL RATIO NORM SEE BELOW Normal [facility] Comment on above: Result Comment: 3.3 - 4.4 LOW RISK 4.4 - 7.1 AVERAGE RISK 7.1 - 11.0 MODERATE RISK >11.0 HIGH RISK Performed By: #### L IPID, CMP, TSH #### [facility] [address] [place] [address] [address] Giacomo Chambers Cholesterol [Mass/Vol] 162 mg/dL Normal <=200 [facility] Comment on above: Performed By: #### L IPID, CMP, TSH #### [facility] [address] [place] [address] [address] Giacomo Chambers Cholesterol in HDL [Mass/Vol] 55 mg/dL Normal 40-60 [facility] Comment on above: Performed By: #### L IPID, CMP, TSH #### [facility] [address] [place] [address] [address] Giacomo Chambers Cholesterol in LDL [Mass/Vol] 77.6 mg/dL Normal [facility] Comment on above: Performed By: #### L IPID, CMP, TSH #### [facility] [address] [place] [address] [address] Giacomo Chambers Cholesterol.total/Cho lesterol in HDL [Mass ratio] 2.9 {ratio} Normal [facility] Comment on above: Performed By: #### L IPID, CMP, TSH #### [facility] [address] [address] [address] Giacomo Chambers HDL NORMAL > or = 60 mg/dl - LOW CARDIOVASCULAR RISK <40 mg/dl - HIGH CARDIOVASCULAR RISK Normal [facility] Comment on above: Performed By: #### L IPID, CMP, TSH #### [facility] [address] [address] [address] Giacomo Chambers LDL CALC NORMAL SEE BELOW Normal [facility] Comment on above: Result Comment: <100 mg/dl OPTIMAL 100 - 129 mg/dl NEAR OR ABOVE OPTIMAL 130 - 159 mg/dl BORDERLINE HIGH 160 - 189 mg/dl HIGH >190 mg/dl VERY HIGH Performed By: #### L IPID, CMP, TSH #### [facility] [address] [address] [address] Giacomo Chambers Triglyceride [Mass/Vol] 147 mg/dL Normal <=150 [facility] Comment on above: Performed By: #### L IPID, CMP, TSH #### [facility] [address] [address] [address] Giacomo Chambers VLDL CALC 29.4 mg/dL Normal [facility] Comment on above: Performed By: #### L IPID, CMP, TSH #### [facility] [address] [place] [address] [address] Giacomo Chambers MICROALBUMIN, RAND URon 12-1 mALB 1.6 mg/L Normal <=30.0 [facility] Comment on above: Performed By: #### M ALBR #### [facility] [address] [place] [address] Dr. Giacomo Chambers PROF 14(COMP METB)on 022 Albumin [Mass/Vol] 4.0 g/dL Normal 3.4-5.0 [facility] Comment on above: Performed By: #### L IPID, CMP, TSH #### [facility] [address] [place] [address] Dr. Giacomo Chambers Albumin/Globulin [Mass ratio] 1.1 {ratio} Normal [facility] Comment on above: Performed By: #### L IPID, CMP, TSH #### [facility] [address] [place] [address] Dr. Giacomo Chambers ALP [Catalytic activity/Vol] 67 U/L Normal 46-116 [facility] Comment on above: Performed By: #### L IPID, CMP, TSH #### [facility] [address] [place] [address] Dr. Giacomo Chambers ALT [Catalytic activity/Vol] 34 U/L Normal 16-63 [facility] Comment on above: Performed By: #### L IPID, CMP, TSH #### [facility] [address] [place] [address] Dr. Giacomo Chambers Anion gap [Moles/Vol] 11.0 mmol/L Normal [facility] Comment on above: Performed By: #### L IPID, CMP, TSH #### [facility] [address] [place] [address] Dr. Giacomo Chambers AST [Catalytic activity/Vol] 28 U/L Normal 15-37 [facility] Comment on above: Performed By: #### L IPID, CMP, TSH #### [facility] [address] [place] [address] Dr. Giacomo Chambers Bilirubin [Mass/Vol] 0.9 mg/dL Normal 0.2-1.0 [facility] Comment on above: Performed By: #### L IPID, CMP, TSH #### [facility] [address] [place] [address] Dr. Giacomo Chambers Calcium [Mass/Vol] 9.4 mg/dL Normal 8.5-10.1 [facility] Comment on above: Performed By: #### L IPID, CMP, TSH #### [facility] [address] [place] [address] [address] Giacomo Chambers Chloride [Moles/Vol] 102 mmol/L Normal 98-107 [facility] Comment on above: Performed By: #### L IPID, CMP, TSH #### [facility] [address] [place] [address] [address] Giacmoo Chambers CO2 [Moles/Vol] 31.2 mmol/L Normal 21.0-32.0 [facility] Comment on above: Performed By: #### L IPID, CMP, TSH #### [facility] [address] [place] [address] Dr. Giacomo Chambers Creatinine [Mass/Vol] 1.13 mg/dL Normal 0.70-1.30 [facility] Comment on above: Performed By: #### L IPID, CMP, TSH #### [facility] [address] [place] [address] Dr. Giacomo Chambers EGFR-AF P[place]UA [place] >60 Normal >=60 [facility] Comment on above: Performed By: #### L IPID, CMP, TSH #### [facility] [address] [place] [address] Dr. Giacomo Chambers EGFR-NON AF [place] >60 Normal >=60 [facility] Comment on above: Performed By: #### L IPID, CMP, TSH #### [facility] [address] [place] [address] [address] Giacomo Chambers Globulin (S) [Mass/Vol] 3.5 g/dL Normal [facility] Comment on above: Performed By: #### L IPID, CMP, TSH #### [facility] [address] [place] [address] [address] Giacomo Chambers Glucose [Mass/Vol] 121 mg/dL Critically high 74-106 [facility] Comment on above: Performed By: #### L IPID, CMP, TSH #### [facility] [address] [place] [address] [address] Giacomo Chambers Potassium [Moles/Vol] 4.2 mmol/L Normal 3.5-5.1 [facility] Comment on above: Performed By: #### L IPID, CMP, TSH #### [facility] [address] [place] [address] [address] Giacomo Chambers Protein [Mass/Vol] 7.5 g/dL Normal 6.4-8.2 [facility] Comment on above: Performed By: #### L IPID, CMP, TSH #### [facility] [address] [place] [address] [address] Giacomo Chambers Sodium [Moles/Vol] 140 mmol/L Normal 136-145 [facility] Comment on above: Performed By: #### L IPID, CMP, TSH #### [facility] [address] [place] [address] Dr. Giacomo Chambers Urea nitrogen [Mass/Vol] 23.0 mg/dL Critically high 7.0-18.0 [facility] Comment on above: Performed By: #### L IPID, CMP, TSH #### [facility] [address] [place] [address] [address] Giacomo Chambers Urea nitrogen/Creatinine [Mass ratio] 20.4 mg/mg Normal [facility] Comment on above: Performed By: #### L IPID, CMP, TSH #### [facility] [address] [place] [address] Dr. Giacomo Chambers TSHon 06-21-2022 TSH 2.946 uIU/mL Normal 0.358-3.740 [facility] Comment on above: Performed By: #### L IPID, CMP, TSH #### [facility] [address] [place] [address] Dr. Giacomo Chambers XR KUB 1 VIEWon 05-04-2022 XR KUB 1 VIEW EXAMINATION: XR KUB 1 VIEW HISTORY: Kidney stone COMPARISON: XR KUB 11/11/2021 FINDINGS: KIDNEY/URETER - RIGHT: No visible renal or ureteral calcifications. KIDNEY/URETER - LEFT: Several tiny calcifications projecting over left kidney. PELVIS: No visible ureteral stones. Stable pelvic calcifications compatible with phleboliths. BOWEL: No abnormal dilation or deviation. BONES: Moderate marked degenerative changes in right hip joint. Prior left hip replacement. OTHER: Negative. No abnormal gaseous collections. IMPRESSION: 1. Left nephrolithiasis. Electronically authenticated by: AIXA DURANT Date: 2022-05-03 22:01 Normal [facility] CBC AUTO DIFFon 12-07-2021 BASO # 0.1 103/ul Normal 0.0-0.1 [facility] Comment on above: Performed By: #### C BC #### [facility] [address] [place] [address] [address] Giacomo Chambers Basophils/100 WBC (Bld) 0.7 % Normal 0.2-2.0 [facility] Comment on above: Performed By: #### C BC #### [facility] [address] [place] [address] [address] Giacomo Chambers EO # 0.2 103/ul Normal 0.0-0.7 [facility] Comment on above: Performed By: #### C BC #### [facility] [address] [place] [address] [address] Giacomo Chambers Eosinophils/100 WBC (Bld) 2.7 % Normal 0.9-7.0 [facility] Comment on above: Performed By: #### C BC #### [facility] [address] [place] [address] [address] Giacomo Chambers Erythrocyte distribution width (RBC) [Ratio] 12.4 % Normal 11.0-15.0 [facility] Comment on above: Performed By: #### C BC #### [facility] [address] [address] [address] Giacomo Chambers Hematocrit (Bld) [Volume fraction] 47.5 % Normal 42.0-54.0 [facility] Comment on above: Performed By: #### C BC #### [facility] [address] [address] [address] Giacomo Chambers Hemoglobin (Bld) [Mass/Vol] 15.5 g/dL Normal 14.0-18.0 [facility] Comment on above: Performed By: #### C BC #### [facility] [address] [address] [address] Giacomo Chambers IG # 0.02 10e3/ul Normal 0.00-0.03 [facility] Comment on above: Performed By: #### C BC #### [facility] [address] [address] [address] Giacomo Chambers IG % 0.3 % Normal 0.0-0.5 [facility] Comment on above: Performed By: #### C BC #### [facility] [address] [place] [address] Dr. Giacomo Chambers LYMPH # 2.1 103/ul Normal 1.2-3.8 The [facility] Comment on above: Performed By: #### C BC #### [facility] [address] [place] [address] Dr. Giacomo Chambers Lymphocytes/100 WBC (Bld) 30.9 % Normal 20.5-60.0 [facility] Comment on above: Performed By: #### C BC #### [facility] [address] [place] [address] Dr. Giacomo Chambers MANUAL DIFF REQ NO Normal [facility] Comment on above: Performed By: #### C BC #### [facility] [address] [place] [address] Dr. Giacomo Chambers MCH (RBC) [Entitic mass] 31.6 pg Normal 25.9-34.0 [facility] Comment on above: Performed By: #### C BC #### [facility] [address] [place] [address] Dr. Giacomo Chambers MCHC (RBC) [Mass/Vol] 32.6 g/dL Normal 29.9-35.2 [facility] Comment on above: Performed By: #### C BC #### [facility] [address] [place] [address] Dr. Giacomo Chambers MCV (RBC) [Entitic vol] 96.7 fL Critically high 80.0-94.0 [facility] Comment on above: Performed By: #### C BC #### [facility] [address] [place] [address] Dr. Giacomo Chambers MONO # 0.7 103/ul Normal 0.3-0.8 [facility] Comment on above: Performed By: #### C BC #### [facility] [address] [place] [address] Dr. Giacomo Chambers Monocytes/100 WBC (Bld) 10.5 % Normal 1.7-12.0 [facility] Comment on above: Performed By: #### C BC #### [facility] [address] [place] [address] Dr. iGacomo Chambers NEUT # 3.7 103/ul Normal 1.4-6.5 [facility] Comment on above: Performed By: #### C BC #### [facility] [address] [place] [address] Dr. Giacomo Chambers Neutrophils/100 WBC (Bld) 54.9 % Normal 43.0-75.0 [facility] Comment on above: Performed By: #### C BC #### [facility] [address] [place] [address] Dr. Giacomo Chambers Platelet mean volume (Bld) [Entitic vol] 9.9 fL Normal 9.5-13.5 [facility] Comment on above: Performed By: #### C BC #### [facility] [address] [place] [address] Dr. Giacomo Chambers PLT 208 103/ul Normal 150-450 [facility] Comment on above: Performed By: #### C BC #### [facility] [address] [place] [address] Dr. Giacomo Chambers RBC 4.91 106/ul Normal 4.70-6.10 [facility] Comment on above: Performed By: #### C BC #### [facility] [address] [place] [address] Dr. Giacomo Chambers WBC 6.7 103/ul Normal 4.0-11.0 [facility] Comment on above: Performed By: #### C BC #### [facility] [address] [place] [address] Dr. Giacomo Chambers FREE T4on 12-07-2021 Free T4 [Mass/Vol] 1.12 ng/dL Normal 0.76-1.46 [facility] Comment on above: Performed By: #### F T4 #### [facility] [address] [place] [address] Dr. Giacomo Chambers PROF CHEM 8 (BAS METB)on Anion gap [Moles/Vol] 13.0 mmol/L Normal [facility] Comment on above: Performed By: #### B MP, TSH #### [facility] [address] [place] [address] Dr. Giacomo Chambers Calcium [Mass/Vol] 9.5 mg/dL Normal 8.5-10.1 [facility] Comment on above: Performed By: #### B MP, TSH #### [facility] [address] [place] [address] Dr. Giacomo Chambers Chloride [Moles/Vol] 104 mmol/L Normal 98-107 [facility] Comment on above: Performed By: #### B MP, TSH #### [facility] [address] [place] [address] Dr. Giacomo Chambers CO2 [Moles/Vol] 32.0 mmol/L Normal 21.0-32.0 [facility] Comment on above: Performed By: #### B MP, TSH #### [facility] [address] [place] [address] Dr. Giacomo Chambers Creatinine [Mass/Vol] 1.06 mg/dL Normal 0.70-1.30 [facility] Comment on above: Performed By: #### B MP, TSH #### [facility] [address] [place] [address] Dr. Giacomo Chambers EGFR-AF PAPUA NEW GUINEAN 60 mL/min/1.73m2 Normal >=60 [facility] Comment on above: Performed By: #### B MP, TSH #### [facility] [address] [place] [address] Dr. Giacomo Chambers EGFR-NON AF PAPUA NEW GUINEAN 60 mL/min/1.73m2 Normal >=60 [facility] Comment on above: Performed By: #### B MP, TSH #### [facility] [address] [place] [address] Dr. Giacomo Chambers Glucose [Mass/Vol] 94 mg/dL Normal 74-106 [facility] Comment on above: Performed By: #### B MP, TSH #### [facility] [address] [place] [address] Dr. Giacomo Chambers Potassium [Moles/Vol] 4.0 mmol/L Normal 3.5-5.1 [facility] Comment on above: Performed By: #### B MP, TSH #### [facility] [address] [place] [address] Dr. Giacomo Chambers Sodium [Moles/Vol] 145 mmol/L Normal 136-145 [facility] Comment on above: Performed By: #### B MP, TSH #### [facility] [address] [place] [address] Dr. Giacomo Chambers Urea nitrogen [Mass/Vol] 17.0 mg/dL Normal 7.0-18.0 [facility] Comment on above: Performed By: #### B MP, TSH #### [facility] [address] [place] [address] Dr. Giacomo Chambers Urea nitrogen/Creatinine [Mass ratio] 16.0 mg/mg Normal [facility] Comment on above: Performed By: #### B MP, TSH #### [facility] [address] [place] [address] Dr. Giacomo Chambers TSHon 12-07-2021 TSH 4.398 uIU/mL Critically high 0.358-3.740 [facility] Comment on above: Performed By: #### B MP, TSH #### [facility] [address] [place] [address] Dr. Giacomo Chambers TSH RANGE SEE BELOW Normal [facility] Comment on above: Result Comment: <0.3 4 UIU/ml HYPERTHYROID 0.34-5.60 UIU/ml EUTHYROID >5.60 UIU/ml HYPOTHYROID Performed By: #### B MP, TSH #### [facility] [address] [place] [address] Dr. Giacomo Chambers Covid-19 PCR (CVDTB)on 11-06 SARS-CoV-2 (COVID-19) RNA RADHA+probe Ql (Unsp spec) Detected Critically abnormal NOT DETECTED [facility] Comment on above: Result Comment: This test is not yet approved or cleared by the [place] FDA. When there are no FDA-approved or cleared tests available, and other criteria are met, FDA can make tests available under an emergency access mechanism called an Emergency Use Authorization (EUA). The EUA for this test is supported by the [place] of Health and Human Service's (HHS's) declaration that circumstances exist to justify the emergency use of in vitro diagnostics for the detection and/or diagnosis of the virus that causes COVID-19. This EUA will remain in effect (meaning this test can be used) for the duration of the COVID-19 declaration justifying emergency of IVDs, unless it is terminated or revoked by FDA (after which the test may no longer be used). Performed By: #### C VDTBH ####[facility] [address] [place], [place] [address]Dr. Giacomo Chambers CALCULI, URINARYon 2 2,8 Dihydroxyadenine Normal [facility] Comment on above: Performed By: #### C ALCULI ####[facility] [address] [place], [place] [address]Dr. Giacomo Chambers Ammonium Acid Urate Normal [facility] Comment on above: Performed By: #### C ALCULI ####[facility] [address] [place] [address]Dr. Giacomo Chambers Bilirubin Ql (U) Normal [facility] Comment on above: Performed By: #### C ALCULI ####[facility] [address] [place] [address]Dr. Giacomo Chambers Ca Oxalate Dihydrate Normal [facility] Comment on above: Performed By: #### C ALCULI ####[facility] [address] [place] [address]Dr. Giacomo Chambers CaHPO4 (Brushite) Normal [facility] Comment on above: Performed By: #### C ALCULI ####[facility] [address] [place] [id number]. Giacomo Chambers Calcium Bilirubinate Normal [facility] Comment on above: Performed By: #### C ALCULI ####[facility] [address] [place], [place] [address]Dr. Giacomo Chambers Calcium Carbonate Normal [facility] Comment on above: Performed By: #### C ALCULI ####[facility] [address] [place] [address]Dr. Giacomo Chambers Calcium Oxalate Monohydrate 100 % Normal [facility] Comment on above: Performed By: #### C ALCULI ####[facility] [address] [place], [place] [address]Dr. Giacomo Chambers Calcium Palmitate Normal [facility] Comment on above: Performed By: #### C ALCULI ####[facility] [address] [place], [place] [address]Dr. Giacomo Chambers Calcium Phosphate Normal [facility] Comment on above: Performed By: #### C ALCULI ####[facility] [address] [place], [place] [address]Dr. Zinastella Chambers Calcium Stearate Normal [facility] Comment on above: Performed By: #### C ALCULI ####[facility] [address] [place], [place] [address]Dr. Giacomo Chambers Carbonate Apatite Normal [facility] Comment on above: Performed By: #### C ALCULI ####[facility] [address] [place], [place] [address]Dr. Giacomo Chambers Cellular Material Normal [facility] Comment on above: Performed By: #### C ALCULI ####[facility] [address] [place], [place] [address]Dr. Giacomo Chambers Cholesterol Normal [facility] Comment on above: Performed By: #### C ALCULI ####[facility] [address] [place], [place] [address]Dr. Giacomo Chambers Color (U) Brown Normal [facility] Comment on above: Performed By: #### C ALCULI ####[facility] [address] [place], [place] [address]Dr. Giacomo Chambers Comment Normal [facility] Comment on above: Performed By: #### C ALCULI ####[facility] [address] [place] [address]Dr. Giacomo Chambers Comment Comment Normal [facility] Comment on above: Result Comment: Calc ulus received in liquid. Wet calculi must be dried before analysis, which delays reporting of results. Leaving calculi in liquid (such as water, saline, blood, urine) may lead to changes in composition. Performed By: #### C ALCULI ####[facility] [address] [place] [address]Dr. Giacomo Chambers Comment: Comment Normal [facility] Comment on above: Result Comment: Stanislav kenny questions regarding Calculi Analysis [facility] at: [phone]. Performed By: #### C ALCULI ####[facility] [address] [place], [place] [address]Dr. Giacomo Chambers Composition Comment [facility] Comment on above: Result Comment: Perc entage (Represents the % composition) Performed By: #### C ALCULI ####[facility] [address] [place] [address]Dr. Giacomo Chambers Cystine Normal [facility] Comment on above: Performed By: #### C ALCULI ####[facility] [address] [place] [address]Dr. Giacomo Chambers Disclaimer: Comment Normal [facility] Comment on above: Result Comment: This test was developed and its performance characteristics determined by [facility]. It has not been cleared or approved by the Food and Drug Administration. Performed By: #### C ALCULI ####[facility] [address] [place] [address]Dr. Giacomo Chambers Dried Blood Normal [facility] Comment on above: Performed By: #### C ALCULI ####[facility] [address] [place] [address]Dr. Giacomo Chambers Drug or Metabolite Normal [facility] Comment on above: Performed By: #### C ALCULI ####[facility] [address] [place] [address]Dr. Giacomo Chambers Hydroxyapatite Normal [facility] Comment on above: Performed By: #### C ALCULI ####[facility] [address] [place] [address]Dr. Giacomo Chambers Mg NH4 PO4 (Struvite) [facility] Comment on above: Performed By: #### C ALCULI ####[facility] [address] [place] [address]Dr. Giacomo Chambers MgHPO4 (New[place]ite) Normal [facility] Comment on above: Performed By: #### C ALCULI ####[facility] [address] [place] [address]Dr. Giacomo Chambers Other component(s) Normal [facility] Comment on above: Performed By: #### C ALCULI ####[facility] [address] [place] [address]Dr. Giacomo Chambers PDF . Normal [facility] Comment on above: Performed By: #### C ALCULI ####[facility] [address] [place] [address]Dr. Giacomo Chambers Photo Comment [facility] Comment on above: Result Comment: Phot ograph will follow under a separate cover Performed By: #### C ALCULI ####[facility] [address] [place], [place] [address]Dr. Giacomo Chambers Please note: Comment Normal [facility] Comment on above: Result Comment: Calc derek report will follow via computer, mail or transportation maintenance supervisor delivery. Performed By: #### C ALCULI ####[facility] [address] [place] [address]Dr. Giacomo Chambers Size 4x3 Normal [facility] Comment on above: Result Comment: Mult iple pieces received. Dimensions of the largest piece reported. Performed By: #### C ALCULI ####[facility] [address] [place] [address]Dr. Giacomo Chambers Sodium Acid Urate Normal [facility] Comment on above: Performed By: #### C ALCULI ####[facility] Vute[address] [place] [address]Dr. Giacomo Chambers Source Comment [facility] Comment on above: Result Comment: Not provided Performed By: #### C ALCULI ####[facility] [address] [place], [place] [address]Dr. Giacomo Chambers Triamterene Normal [facility] Comment on above: Performed By: #### C ALCULI ####[facility] M[address] [place], [place] [address]Dr. Giacomo Chambers Uric Acid [facility] Comment on above: Performed By: #### C ALCULI ####[facility] N[address] [place], [place] [address]Dr. Giacomo Chambers Uric Acid Dihydrate Normal [facility] Comment on above: Performed By: #### C ALCULI ####[facility] [address] [place], [place] [address]Dr. Giacomo Chambers Weight 82 mg [facility] Comment on above: Performed By: #### C ALCULI ####[facility] [address] [place], [place] [address]Dr. Giacomo Chambers Xanthine [facility] Comment on above: Performed By: #### C ALCULI ####[facility] [address] [place], [place] [address]Dr. Giacomo Chambers PROF CHEM 8 (BAS METB)on Anion gap [Moles/Vol] 13.0 mmol/L Normal [facility] Comment on above: Performed By: #### B MP ####[facility] N[address] [place], [place] [address]Dr. Giacomo Chambers Calcium [Mass/Vol] 8.7 mg/dL Normal 8.5-10.1 [facility] Comment on above: Performed By: #### B MP ####[facility] [address] [place], [place] [address]Dr. Giacomo Chambers Chloride [Moles/Vol] 101 mmol/L Normal 98-107 [facility] Comment on above: Performed By: #### B MP ####[facility] [address] [place] [address]Dr. Giacomo Reyes CO2 [Moles/Vol] 28.9 mmol/L Normal 21.0-32.0 [facility] Comment on above: Performed By: #### B MP ####[facility] [address] [place], [place] [address]Dr. Giacomo Reyes Creatinine [Mass/Vol] 1.04 mg/dL Normal 0.70-1.30 [facility] Comment on above: Performed By: #### B MP ####[facility] [address] [place], [place] [address]Dr. Zinastella Reyes EGFR-AF PAPUA NEW GUINEAN >60 Normal >=60 [facility] Comment on above: Performed By: #### B MP ####[facility] [address] [place], [place] [address]Dr. Giacomo Chambers EGFR-NON AF PAPUA NEW GU[place]AN >60 Normal >=60 [facility] Comment on above: Performed By: #### B MP ####[facility] [address] [place], [place] [address]Dr. Giacomo Chambers Glucose [Mass/Vol] 111 mg/dL Critically high 74-106 [facility] Comment on above: Performed By: #### B MP ####[facility] [address] [place], [place] [address]Dr. Gicaomo Chambers Potassium [Moles/Vol] 3.9 mmol/L Normal 3.5-5.1 [facility] Comment on above: Performed By: #### B MP ####[facility] [address] [place], [place] [address]Dr. Giacomo Chambers Sodium [Moles/Vol] 139 mmol/L Normal 136-145 [facility] Comment on above: Performed By: #### B MP ####[facility] [address] [place], [place] [address]Dr. Giacomo Chambers Urea nitrogen [Mass/Vol] 18.0 mg/dL Normal 7.0-18.0 [facility] Comment on above: Performed By: #### B MP ####[facility] [address]ks[address] [place], [place] [address]Dr. Giacomo Chambers Urea nitrogen/Creatinine [Mass ratio] 17.3 mg/mg Normal [facility] Comment on above: Performed By: #### B ####[facility] [address] [place], [place] [address]EbCamila Chambers XR KUB 1 VIEWon 11-11-2021 XR KUB 1 VIEW EXAM: XR KUB 1 VIEW HISTORY: Kidney stone Clinical Indication: Kidney stone Comparison: April 14, 2021 FINDINGS: The supine and upright views of the abdomen shows a non-obstructive bowel gas pattern. There is no abnormal dilatation of bowel loops. No significant air fluid levels. There is no pneumoperitoneum. Right upper quadrant surgical clips are seen. There are no radiopaque densities noted. There are no clinically significant osseous abnormalities noted. IMPRESSION: Unremarkable abdominal series SL: [id number] Electronically authenticated by: RADHA PATEL Date: 2021-11-11 16:26 Normal [facility] Vital Signs Date Time Vital Sign Value Performing Clinician Facility 11-02-2023 11:55-0400 Blood Pressure Location Juan BEAVER [facility] 11-02-2023 11:55-0400 Diastolic blood pressure 89 mm[Hg] Juan BEAVER [facility] 11-02-2023 11:55-0400 Heart rate 80 /min Juan BEAVER [facility] 11-02-2023 11:55-0400 Respiratory rate 16 /min Juan BEAVER [facility] 11-02-2023 11:55-0400 Systolic blood pressure 132 mm[Hg] Juan BEVAER [facility] 06-21-2023 11:33-0500 Body height 177.8 cm MD Regina Connell Work Phone: [facility] 06-21-2023 11:33-0500 Body weight 106.59 kg MD Regina Connell Work Phone: [facility] 03-15-2023 13:30-0400 Body height 177.8 cm Regina Connell Other [facility] Other 03-15-2023 13:30-0400 Body mass index (BMI) [Ratio] 34.15 kg/m2 Regina Connell Other [facility] Other 03-15-2023 13:30-0400 Body weight 107.96 kg Regina Connell Other [facility] Other 03-15-2023 13:30-0400 Diastolic blood pressure 70 mm[Hg] Regina Connell Other [facility] Other 03-15-2023 13:30-0400 Respiratory rate 12 /min Regina Connell Other [facility] Other 03-15-2023 13:30-0400 Systolic blood pressure 132 mm[Hg] Regina Connell Other [facility] Other 01-01-2023 08:45-0400 Body height 177.8 cm Regina Connell Other [facility] Other 01-01-2023 08:45-0400 Body mass index (BMI) [Ratio] 34 kg/m2 Regina Connell Other [facility] Other 01-01-2023 08:45-0400 Body weight 107.5 kg Regina Connell Other [facility] Other 01-01-2023 08:45-0400 Diastolic blood pressure 75 mm[Hg] Regina Connell Other [facility] Other 01-01-2023 08:45-0400 SaO2% (BldA) [Mass fraction] 97 % Regina Connell Other [facility] Other 01-01-2023 08:45-0400 Systolic blood pressure 132 mm[Hg] Regina Connell Other [facility] Other 05-29-2022 09:29-0500 Blood Pressure Location Juanmilka BEAVER [facility] 05-29-2022 09:29-0500 Diastolic blood pressure 76 mm[Hg] Juan BEAVER [facility] 05-29-2022 09:29-0500 Heart rate 70 /min Juan BEAVER [facility] 05-29-2022 09:29-0500 Respiratory rate 16 /min Juanmilka BEAVER [facility] 05-29-2022 09:29-0500 Systolic blood pressure 127 mm[Hg] Juan BEAVER [facility] 11-14-2021 10:33-0400 Blood Pressure Location Juanmilka BEAVER [facility] 11-14-2021 10:33-0400 Diastolic blood pressure 83 mm[Hg] Juan BEAVER [facility] 11-14-2021 10:33-0400 Heart rate 71 /min Juan BEAVER [facility] 11-14-2021 10:33-0400 Systolic blood pressure 160 mm[Hg] Juan BEAVER [facility] Estephania Encounters Encounter Date Encounter Type Care Provider Facility Start: 05-26-2024 ambulatory Juan BEAVER Lulyi ty:[facility] [place] Start: 11-02-2023 End: 11-03-2023 ambulatory Juanmilka BEAVER Facility:[facility] [place] Start: 11-02-2023 End: 11-02-2023 Patient encounter procedure Juan BEAVER [facility] Start: 06-21-2023 End: 06-21-2023 ambulatory Sukhdeep Keira Facility:[facility] Start: 06-21-2023 End: 06-21-2023 ambulatory MD Regina Connell Work Phone: [facility] Work Phone: Start: 06-21-2023 End: 06-21-2023 Patient encounter procedure MD Regina Connell Work Phone: [facility] [place] Work Phone: Start: 06-04-2023 ambulatory Juan Mauricioi ty:[facility] [place] Start: 05-28-2023 End: 05-28-2023 ambulatory REGINA CONNELL Not Available Start: 05-24-2023 End: 05-24-2023 ambulatory BETSY CIFUENTES Not Available Start: 05-07-2023 End: 05-07-2023 ambulatory Regina Connell Other [facility] Other Start: 05-07-2023 Telephone encounter Regina Connell [facility] Start: 05-02-2023 End: 05-02-2023 ambulatory Regina Connell Other [facility] Other Start: 05-02-2023 Telephone encounter Regina Connell [facility] Start: 04-10-2023 End: 04-10-2023 ambulatory Regina Connell Other [facility] Other Start: 04-10-2023 Telephone encounter Regina Connell [facility] Start: 03-26-2023 End: 03-26-2023 ambulatory Regina Connell Other [facility] Other Start: 03-26-2023 Telephone encounter Regina Connell [facility] Start: 03-20-2023 End: 03-20-2023 ambulatory Regina Connell Other [facility] Other Start: 03-20-2023 Telephone encounter Regina Connell [facility] Start: 03-15-2023 End: 03-15-2023 ambulatory Regina Connell Other [facility] Other Start: 03-15-2023 Office outpatient vi sit 15 minutes Regina Connell [facility] Start: 02-22-2023 End: 02-22-2023 ambulatory Regina Connell Other [facility] Other Start: 02-22-2023 Telephone encounter Regina Ko [facility] Start: 01-11-2023 End: 01-11-2023 ambulatory Regina Connell Other [facility] Other Start: 01-11-2023 Telephone encounter Regina Connell [facility] Start: 01-03-2023 End: 01-03-2023 ambulatory Regina Connell Other [facility] Other Start: 01-03-2023 Telephone encounter Regina Ko [facility] Start: 01-01-2023 End: 01-01-2023 ambulatory Regina Connell Other [facility] Other Start: 01-01-2023 Office outpatient vi sit 15 minutes Regina Connell [facility] Start: 06-21-2022 End: 06-22-[address] REGINA CONNELL Facility: Start: 12-07-2022 Adult health examination Regina Connell Other [facility] Other Start: 05-29-2022 End: 05-29-2022 Patient encounter procedure Juan BEAVER [facility] Start: 05-03-2022 End: 05-04-[address] JUAN BEAVER Facility:[facility] Start: 12-07-2021 End: [address] REGINA CONNELL Facility:[facility] Start: 11-23-2021 End: 11-23-[address] REGINA CONNELL Facility:[facility] Start: 11-14-2021 End: 11-15-[address] JUAN BEAVER Facility:[facility] Start: 11-14-2021 End: 11-14-2021 Patient encounter procedure Juan BEAVER [facility] Start: 11-11-2021 End: 11-12-[address] JUAN BEAVER Facility:[facility] Procedures Date Procedure Procedure Detail Performing Clinician Start: 06-21-2023 MRI of head MD Regina Connell Work Phone: Start: 05-03-[address] REGINA CONNELL Comment on above: Performed By: #### P SAD ####[place] [id number] Chambers Start: 06-16-2021 Extracorporeal shock wave lithotripsy of calculus of kidney Juan BEAVER Start: 11-29-2016 Right knee arthrosco py with partial medial meniscectomy in addition to chondroplasty, patellofemoral articulation Juan BEAVER Start: 02-15-2016 Left hip arthroplasty Dev BEAVER Start: 11-06-2012 Extracorporeal shock wave lithotripsy of calculus of kidney Juan BEAVER Start: 07-24-2010 Extracorporeal shock wave lithotripsy of calculus of kidney Juan BEAVER Start: 01-27-2008 Cystoscopic removal of ureteric stent Juan BEAVER Start: 01-20-2008 Cystoscope, device ( physical object) Juan BEAVER Start: 02-14-2007 Cystoscope, device ( physical object) Juan BEAVER Start: 01-24-2007 Renal lithotripsy [place] BEAVER Arthroscope, device (physical object) Juan BEAVER Comment on above: B/l knees, left shou lder Cholecystectomy Juan GARCIA Excision of basal ce ll carcinoma Juan BEAVER Tonsillectomy and adenoidectomy Juan BEAVER Plan of Treatment Date Care Activity Detail Author Start: 06-21-2023 Doppler ultrasonogra phy of bilateral carotid arteries US carotid doppler [facility] Start: 06-21-2023 US.doppler Carotid a rteries - [facility] Immunizations Immunization Date Immunization Notes Care Provider Mildred steward 06-07-2022 influenza virus vaccine, unspecified formulation Juan BEAVER [facility] 04-03-2022 SARS-CoV-2 (COVID-19 ) [id number] Juan BEAVER [facility] Comment on above: Result Comment: 2023: [id number] 06-24-2021 influenza virus vaccine, unspecified formulation Juan BEAVER [facility] 05-02-2021 SARS-CoV-2 (COVID-19 ) mRNA-1273 vaccine Juan BEAVER [facility] 09-15-2020 SARS-CoV-2 (COVID-19 ) mRNA-1273 vaccine Juan [employer] [facility] 08-18-2020 SARS-CoV-2 (COVID-19 ) mRNA-1273 vaccine Juan [employer] [facility] 03-31-2020 influenza virus vaccine, split virus (incl. purified surface antigen) Regina Connell Other [facility] Other 04-25-2019 influenza virus vaccine, unspecified formulation Juan [employer] [facility] 07-16-2018 influenza virus vaccine, split virus (incl. purified surface antigen) Regina Connell Other [facility] 07-16-2018 influenza virus vaccine, unspecified formulation Juan [employer] [facility] 07-07-2016 influenza virus vaccine, unspecified formulation Juan [employer] [facility] 06-22-2015 influenza virus vaccine, split virus (incl. purified surface antigen) Regina Connell Other [facility] Other 06-22-2015 influenza virus vaccine, unspecified formulation [employer] [facility] 04-01-2013 tetanus and diphther ia toxoids, adsorbed, preservative free, for adult use (5 Lf of tetanus toxoid and 2 Lf of diphtheria toxoid) Regina Connell Other [facility] Other NEGATED: Highlighted row has not occurred!06-10-2019 pneumococcal polysaccharide vaccine, 23 valent Regina Connell Other [facility] Other Payers Date Payer Category Payer Self-pay 1959 Medicare [id number] 1959 Unknown [id number] 1950 Unknown [id number] 2.16.84 [id number] 1950 Unknown [id number] 2.16.84 [id number] 1950 Unknown [id number] 2.16.84 [id number] 1950 Unknown [id number] 2.16.84 [id number] 1950 Unknown [id number] 2.16.84 [id number] 1950 Unknown [id number] 2.16.84 [id number] 1950 Unknown [id number] 2.16.840 .[id number] 1950 Unknown [id number] 2.16.840 .[id number] 1950 Unknown [id number] 2.16.8 [id number] 1950 Unknown [id number] 2.16.8 [id number] 1950 Unknown [id number] 2.16.8 [id number] Unknown [id number] 2.16.8 [id number] Social History Date Type Detail Facility Start: 11-14-2021 End: 11-02-2023 Tobacco smoking status Never smoked tobacco (finding) [facility] Sex Assigned At Male [facility] Start: 1950 Sex Assigned At Male [facility] Tobacco smoking status Never [facility] Functional Status Date Assessment Result Facility 11-02-2023 Functional Status N/A [facility] 05-29-2022 Functional Status N/A [facility] Clinical Notes 11-14-2021 to 11-02-2023 Note Date & Type Note Facility 11-02-2023 Hospital Discharg e instructions Patient Education 11/02/2023 13:09:17 Erectile Dysfunction Erectile Dysfunction Erectile dysfunction (ED) is the inability to get or keep an erection in order to have sexual intercourse. ED is considered a symptom of an underlying disorder and is not considered a disease. ED may include: Inability to get an erection. Lack of enough hardness of the erection to allow penetration. Loss of erection before sex is finished. What are the causes? This condition may be caused by: Physical causes, such as: ?Artery problems. This may include heart disease, high blood pressure, atherosclerosis, and diabetes. ?Hormonal problems, such as low testosterone. ?Obesity. ?Nerve problems. This may include back or pelvic injuries, multiple sclerosis, Parkinson's disease, spinal cord injury, and stroke. Certain medicines, such as: ?Pain relievers. ?Antidepressants. ?Blood pressure medicines and water pills (diuretics). ?Cancer medicines. ?Antihistamines. ?Muscle relaxants. Lifestyle factors, such as: ?Use of drugs such as marijuana, cocaine, or opioids. ?Excessive use of alcohol. ?Smoking. ?Lack of physical activity or exercise. Psychological causes, such as: ?Anxiety or stress. ?Sadness or depression. ?Exhaustion. ?Fear about sexual performance. ?Guilt. What are the signs or symptoms? Symptoms of this condition include: Inability to get an erection. Lack of enough hardness of the erection to allow penetration. Loss of the erection before sex is finished. Sometimes having normal erections, but with frequent unsatisfactory episodes. Low sexual satisfaction in either partner due to erection problems. A curved penis occurring with erection. The curve may cause pain, or the penis may be too curved to allow for intercourse. Never having nighttime or morning erections. How is this diagnosed? This condition is often diagnosed by: Performing a physical exam to find other diseases or specific problems with the penis. Asking you detailed questions about the problem. Doing tests, such as: ?Blood tests to check for diabetes mellitus or high cholesterol, or to measure hormone levels. ?Other tests to check for underlying health conditions. ?An ultrasound exam to check for scarring. ?A test to check blood flow to the penis. Doing a sleep study at home to measure nighttime erections. How is this treated? This condition may be treated by: Medicines, such as: ?Medicine taken by mouth to help you achieve an erection (oral medicine). ?Hormone replacement therapy to replace low testosterone levels. ?Medicine that is injected into the penis. Your health care provider may instruct you how to give yourself these injections at home. ?Medicine that is delivered with a short applicator tube. The tube is inserted into the opening at the tip of the penis, which is the opening of the urethra. A tiny pellet of medicine is put in the urethra. The pellet dissolves and enhances erectile function. This is also called MUSE (medicated urethral system for erections) therapy. Vacuum pump. This is a pump with a ring on it. The pump and ring are placed on the penis and used to create pressure that helps the penis become erect. Penile implant surgery. In this procedure, you may receive: ?An inflatable implant. This consists of cylinders, a pump, and a reservoir. The cylinders can be inflated with a fluid that helps to create an erection, and they can be deflated after intercourse. ?A semi-rigid implant. This consists of two silicone rubber rods. The rods provide some rigidity. They are also flexible, so the penis can both curve downward in its normal position and become straight for sexual intercourse. Blood vessel surgery to improve blood flow to the penis. During this procedure, a blood vessel from a different part of the body is placed into the penis to allow blood to flow around (bypass) damaged or blocked blood vessels. Lifestyle changes, such as exercising more, losing weight, and quitting smoking. Follow these instructions at home: Medicines Take ksry-xie-tehtarz and prescription medicines only as told by your health care provider. Do not increase the dosage without first discussing it with your health care provider. If you are using self-injections, do injections as directed by your health care provider. Make sure you avoid any veins that are on the surface of the penis. After giving an injection, apply pressure to the injection site for 5 minutes. Talk to your health care provider about how to prevent headaches while taking ED medicines. These medicines may cause a sudden headache due to the increase in blood flow in your body. General instructions Exercise regularly, as directed by your health care provider. Work with your health care provider to lose weight, if needed. Do not use any products that contain nicotine or tobacco. These products include cigarettes, chewing tobacco, and vaping devices, such as e-cigarettes. If you need help quitting, ask your health care provider. Before using a vacuum pump, read the instructions that come with the pump and discuss any questions with your health care provider. Keep all follow-up visits. This is important. Contact a health care provider if: You feel nauseous. You are vomiting. You get sudden headaches while taking ED medicines. You have any concerns about your sexual health. Get help right away if: You are taking oral or injectable medicines and you have an erection that lasts longer than 4 hours. If your health care provider is unavailable, go to the nearest emergency room for evaluation. An erection that lasts much longer than 4 hours can result in permanent damage to your penis. You have severe pain in your groin or abdomen. You develop redness or severe swelling of your penis. You have redness spreading at your groin or lower abdomen. You are unable to urinate. You experience chest pain or a rapid heartbeat (palpitations) after taking oral medicines. These symptoms may represent a serious problem that is an emergency. Do not wait to see if the symptoms will go away. Get medical help right away. Call your local emergency services (911 in the [place] Do not drive yourself to the hospital. Summary Erectile dysfunction (ED) is the inability to get or keep an erection during sexual intercourse. This condition is diagnosed based on a physical exam, your symptoms, and tests to determine the cause. Treatment varies depending on the cause and may include medicines, hormone therapy, surgery, or a vacuum pump. You may need follow-up visits to make sure that you are using your medicines or devices correctly. Get help right away if you are taking or injecting medicines and you have an erection that lasts longer than 4 hours. This information is not intended to replace advice given to you by your health care provider. Make sure you discuss any questions you have with your health care provider. Document Revised: 09/21/2021 Document Reviewed: 09/21/2021 Elsevier Patient Education 2022 [employer]. 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 Crockett - states his office would like a CT sinus to be complete prior to the OV. [facility] Other 07-06-2023 Evaluation note* Encounter Date Diagnosis Assessment Notes Treatment Notes Treatment Clinical Notes Jan, Dyspnea on exertion (ICD-10 - R06.09) [facility] Other 06-26-2023 Evaluation note* Encounter Date Diagnosis Assessment Notes Treatment Notes Treatment Clinical Notes Dec, Primary hypertension (ICD-10 - I10) Chronic problem- check labs and EKG. Upcoming trip to [place] later this summer. Dec, BPV (benign positional vertigo), bilateral (ICD-10 - H81.13) Order printed for PT Dec, Acquired hypothyroidism (ICD-10 - E03.9) Check labs. [facility] Other 11-21-2022 Hospital Discharge instructions Patient Education 05/29/2022 09:56:53 Dietary Guidelines to Help Prevent Kidney Stones Dietary Guidelines to Help Prevent Kidney Stones Kidney stones are deposits of minerals and salts that form inside your kidneys. Your risk of developing kidney stones may be greater depending on your diet, your lifestyle, the medicines you take, and whether you have certain medical conditions. Most people can reduce their chances of developing kidney stones by following the instructions below. Depending on your overall health and the type of kidney stones you tend to develop, your dietitian may give you more specific instructions. What are tips for following this plan? Reading food labels Choose foods with no salt added or low-salt labels. Limit your sodium intake to less than 1500 mg per day. Choose foods with calcium for each meal and snack. Try to eat about 300 mg of calcium at each meal.Foods that contain 200 500 mg of calcium per serving include: ?8 oz (237 ml) of milk, fortified nondairy milk, and fortified fruit juice. ?8 oz (237 ml) of kefir, yogurt, and soy yogurt. ?4 oz (118 ml) of tofu. ?1 oz of cheese. ?1 cup (300 g) of dried figs. ?1 cup (91 g) of cooked broccoli. ?1 3 oz can of sardines or mackerel. Most people need 1000 to 1500 mg of calcium each day. Talk to your dietitian about how much calciumis recommended for you. Shopping Buy plenty of fresh fruits and vegetables. Most people do not need to avoid fruits and vegetables, even if they contain nutrients that may contribute to kidney stones. When shopping for convenience foods, choose: ?Whole pieces of fruit. ?Premade salads with dressing on the side. ?Low-fat fruit and yogurt smoothies. Avoid buying frozen meals or prepared deli foods. Look for foods with live cultures, such as yogurt and kefir. Cooking Do not add salt to food when cooking. Place a salt shaker on the table and allow each person to addhis or her own salt to taste. Use vegetable protein, such as beans, textured vegetable protein (TVP), or tofu instead of meat in pasta, casseroles, and soups. Meal planning Eat less salt, if told by your dietitian. To do this: ?Avoid eating processed or premade food. ?Avoid eating fast food. Eat less animal protein, including cheese, meat, poultry, or fish, if told by your dietitian. To dothis: ?Limit the number of times you have meat, poultry, fish, or cheese each week. Eat a diet free of meat at least 2 days a week. ?Eat only one serving each day of meat, poultry, fish, or seafood. ?When you prepare animal protein, cut pieces into small portion sizes. For most meat and fish, one serving is about the size of one deck of cards. Eat at least 5 servings of fresh fruits and vegetables each day. To do this: ?Keep fruits and vegetables on hand for snacks. ?Eat 1 piece of fruit or a handful of berries with breakfast. ?Have a salad and fruit at lunch. ?Have two kinds of vegetables at dinner. Limit foods that are high in a substance called oxalate. These include: ?Spinach. ?Rhubarb. ?Beets. ?Potato chips and [place] citizen fries. ?Nuts. If you regularly take a diuretic medicine, make sure to eat at least 1 2 fruits or vegetables high in potassium each day. These include: ?Avocado. ?Banana. ?[place], prune, carrot, or tomato juice. ?Baked potato. ?Cabbage. ?Beans and split peas. General instructions Drink enough fluid to keep your urine clear or pale yellow. This is the most important thing you can do. Talk to your health care provider and dietitian about taking daily supplements. Depending on your health and the cause of your kidney stones, you may be advised: ?Not to take supplements with vitamin C. ?To take a calcium supplement. ?To take a daily probiotic supplement. ?To take other supplements such as magnesium, fish oil, or vitamin B6. Take all medicines and supplements as told by your health care provider. Limit alcohol intake to no more than 1 drink a day for non women and 2 drinks a day for men. One drink equals 12 oz of beer, 5 oz of wine, or 1 oz of hard liquor. Lose weight if told by your health care provider. Work with your dietitian to find strategies and an eating plan that works best for you. What foods are not recommended? Limit your intake of the following foods, or as told by your dietitian. Talk to your dietitian about specific foods you should avoid based on the type of kidney stones and your overall health. Grains Breads. Bagels. Rolls. Baked goods. Salted crackers. Cereal. Pasta. Vegetables Spinach. Rhubarb. Beets. Canned vegetables. Pickles. Olives. Meats and other protein foods Nuts. Nut butters. Large portions of meat, poultry, or fish. Salted or cured meats. Deli meats. Hotdogs. Sausages. Dairy Cheese. Beverages Regular soft drinks. Regular vegetable juice. Seasonings and other foods Seasoning blends with salt. Salad dressings. Canned soups. Soy sauce. Ketchup. Barbecue sauce. Canned pasta sauce. Casseroles. Pizza. Lasagna. Frozen meals. Potato chips. Scottish fries. Summary You can reduce your risk of kidney stones by making changes to your diet. The most important thing you can do is drink enough fluid. You should drink enough fluid to keep your urine clear or pale yellow. Ask your health care provider or dietitian how much protein from animal sources you should eat eachday, and also how much salt and calcium you should have each day. This information is not intended to replace advice given to you by your health care provider. Make sure you discuss any questions you have with your health care provider. Document Released: 10/20/2011 Document Revised: 10/15/2019 Document Reviewed: 06/05/2017 [employer] Patient Education 2020 [employer]. Follow Up Care 11/14/2021 11:17:31 With:DOUG NATHAN, Juan R, URL Address: [facility] [address], [place] [address]- When: Unknown [facility] 05-09-2022 Hospital Discharge instructions Patient Education 11/14/2021 08:18:53 Dietary Guidelines to Help Prevent Kidney Stones Dietary Guidelines to Help Prevent Kidney Stones Kidney stones are deposits of minerals and salts that form inside your kidneys. Your risk of developing kidney stones may be greater depending on your diet, your lifestyle, the medicines you take, and whether you have certain medical conditions. Most people can reduce their chances of developing kidney stones by following the instructions below. Depending on your overall health and the type of kidney stones you tend to develop, your dietitian may give you more specific instructions. What are tips for following this plan? Reading food labels Choose foods with no salt added or low-salt labels. Limit your sodium intake to less than 1500 mg per day. Choose foods with calcium for each meal and snack. Try to eat about 300 mg of calcium at each meal.Foods that contain 200 500 mg of calcium per serving include: ?8 oz (237 ml) of milk, fortified nondairy milk, and fortified fruit juice. ?8 oz (237 ml) of kefir, yogurt, and soy yogurt. ?4 oz (118 ml) of tofu. ?1 oz of cheese. ?1 cup (300 g) of dried figs. ?1 cup (91 g) of cooked broccoli. ?1 3 oz can of sardines or mackerel. Most people need 1000 to 1500 mg of calcium each day. Talk to your dietitian about how much calciumis recommended for you. Shopping Buy plenty of fresh fruits and vegetables. Most people do not need to avoid fruits and vegetables, even if they contain nutrients that may contribute to kidney stones. When shopping for convenience foods, choose: ?Whole pieces of fruit. ?Premade salads with dressing on the side. ?Low-fat fruit and yogurt smoothies. Avoid buying frozen meals or prepared deli foods. Look for foods with live cultures, such as yogurt and kefir. Cooking Do not add salt to food when cooking. Place a salt shaker on the table and allow each person to addhis or her own salt to taste. Use vegetable protein, such as beans, textured vegetable protein (TVP), or tofu instead of meat in pasta, casseroles, and soups. Meal planning Eat less salt, if told by your dietitian. To do this: ?Avoid eating processed or premade food. ?Avoid eating fast food. Eat less animal protein, including cheese, meat, poultry, or fish, if told by your dietitian. To dothis: ?Limit the number of times you have meat, poultry, fish, or cheese each week. Eat a diet free of meat at least 2 days a week. ?Eat only one serving each day of meat, poultry, fish, or seafood. ?When you prepare animal protein, cut pieces into small portion sizes. For most meat and fish, one serving is about the size of one deck of cards. Eat at least 5 servings of fresh fruits and vegetables each day. To do this: ?Keep fruits and vegetables on hand for snacks. ?Eat 1 piece of fruit or a handful of berries with breakfast. ?Have a salad and fruit at lunch. ?Have two kinds of vegetables at dinner. Limit foods that are high in a substance called oxalate. These include: ?Spinach. ?Rhubarb. ?Beets. ?Potato chips and [place] citizen fries. ?Nuts. If you regularly take a diuretic medicine, make sure to eat at least 1 2 fruits or vegetables high in potassium each day. These include: ?Avocado. ?Banana. ?[place], prune, carrot, or tomato juice. ?Baked potato. ?Cabbage. ?Beans and split peas. General instructions Drink enough fluid to keep your urine clear or pale yellow. This is the most important thing you can do. Talk to your health care provider and dietitian about taking daily supplements. Depending on your health and the cause of your kidney stones, you may be advised: ?Not to take supplements with vitamin C. ?To take a calcium supplement. ?To take a daily probiotic supplement. ?To take other supplements such as magnesium, fish oil, or vitamin B6. Take all medicines and supplements as told by your health care provider. Limit alcohol intake to no more than 1 drink a day for non women and 2 drinks a day for men. One drink equals 12 oz of beer, 5 oz of wine, or 1 oz of hard liquor. Lose weight if told by your health care provider. Work with your dietitian to find strategies and an eating plan that works best for you. What foods are not recommended? Limit your intake of the following foods, or as told by your dietitian. Talk to your dietitian about specific foods you should avoid based on the type of kidney stones and your overall health. Grains Breads. Bagels. Rolls. Baked goods. Salted crackers. Cereal. Pasta. Vegetables Spinach. Rhubarb. Beets. Canned vegetables. Pickles. Olives. Meats and other protein foods Nuts. Nut butters. Large portions of meat, poultry, or fish. Salted or cured meats. Deli meats. Hotdogs. Sausages. Dairy Cheese. Beverages Regular soft drinks. Regular vegetable juice. Seasonings and other foods Seasoning blends with salt. Salad dressings. Canned soups. Soy sauce. Ketchup. Barbecue sauce. Canned pasta sauce. Casseroles. Pizza. Lasagna. Frozen meals. Potato chips. Scottish fries. Summary You can reduce your risk of kidney stones by making changes to your diet. The most important thing you can do is drink enough fluid. You should drink enough fluid to keep your urine clear or pale yellow. Ask your health care provider or dietitian how much protein from animal sources you should eat eachday, and also how much salt and calcium you should have each day. This information is not intended to replace advice given to you by your health care provider. Make sure you discuss any questions you have with your health care provider. Document Released: 10/20/2011 Document Revised: 10/15/2019 Document Reviewed: 06/05/2017 [employer] Patient Education 2020 [employer]. Follow Up Care 07/15/2021 13:17:36 With:Juan BEAVER MD, URL Address: [facility] [address], [place] [address]- When: Unknown [facility] evaluation + Plan note Future Appointments Appointment Date:05/29/2022 09:15:00 AM Scheduled Provider:Juan BEAVER MD Location:[facility] Appointment Type:URO Office Visit Diagnostic Tests Pending * PSA Total 11/14/21 * Calculi Analysis Urinary 11/14/21 [facility] evaluation + Plan note Future Appointments Appointment Date:06/04/2023 09:15:00 AM Scheduled Provider:Juan BEAVER MD [facility] App[facility] Type:URO Office Visit Diagnostic Tests Pending * PSA Total 05/29/22 [facility] evalyopsyf + Plan note Future Appointments Appointment Date:05/26/2024 08:45:00 AM Scheduled Provider:Juan BEAVER MD Location:[facility] Appointment Type:URO Office Visit Diagnostic Tests Pending * PSA Total 12/22/23 * PSA Total 03/09/24 [facility] evaluation [facility] Other Evaluation noteNo assessment information available [facility] Work Phone: History general Narrative - Reported* Type Description Date Medical History Kidney stones Medical History Hypercholesterolemia Surgical History lithotripsy Surgical History cystoscopy Surgical History knee arthroscopy Surgical History rotator cuff Surgical History cholecystectomy Surgical History Colonoscopy 12/2022 Hospitalization History see above [facility] Other Hospital course Narrative No data available for this section [facility] progress note No data available for this section [facility] reason for visit Narrativereferral for vertigo, medication [facility] Other Summary Purpose Family History No Family History Records FoundNo Family History Records FoundNo Family History Records Found No data available for this section No Family History Records Found Advance Directives No Advanced Directives Records Found Advance Directive Response Recorded Date/ Time Advance Directives No June 12, 2023 12:51pm Reason for Referral Reason vertigo - today s visit Diagnosis 1 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) Referral Organization [facility] Referring Provider First Name Regina Referring Provider Last Name Ko Referring Provider Specialty [facility] Referred Organization [facility] Referred Provider Sukhdeep Crockett Referred Address ,[place], [place],[address] Referred Provider Specialty Otolaryngolo gy Referral Priority Routine General Notes Mia Thrasher 11:33:32 AM >recieved today, insurance attached, waiting for notes to be locked to fax Mia Thrasher 03/20/2023 09:26:55 AM >SENT TE TO LOCK NOTES Chief Complaint and Reason for Visit Chief Complaint H91.8X3 H81.391 R42 Additional Source Comments Patient Care team informatio n (unrecognized section and content) Team Status: Active Member Role Status Dates Regina Connell MD Primary Care Provider Active Team Status: Inactive Member Role Status Dates Sukhdeep Crockett DO Attending Provider Active Regina Connell MD Primary Care Provider Active (unrecognized sect ion and content) No Status Records FoundNo Status Records FoundNo Status Records FoundNo Status Records Found INFORMATION SOURCE (unrecogn ized section and content) DATE CREATED AUTHOR 06/30/2022 [facility] DATE CREATED AUTHOR AUTHOR'S ORGANIZ ATION 05/30/2023 [facility] EPIC DATE CREATED AUTHOR AUTHOR'S ORGANIZ ATION 08/17/2023 [facility] DATE CREATED AUTHOR AUTHOR'S ORGANIZ ATION 11/04/2023 [facility] REASON FOR VISIT (unrecogniz ed section and content) test resultslightheadedness/ NauseaCT ScanSinus InfectionNo InformationNOTES NEEDING LOCKEDCT resultmessage, referralLab neededCT result Goals (unrecognized section and content) Goals may be documented in a n alternate section FOR RECORDS PERTAINING TO PATIENTS WHO ARE OR HAVE BEEN ENROLLED IN A CHEMICAL DEPENDENCY/SUBSTANCEABUSE PROGRAM, SOME INFORMATION MAY BE OMITTED. This clinical summary was aggregated from multiple sources. Caution should be exercised in using it in the provision of clinical care. This summary normalizes information from multiple sources, and as a consequence, information in this document may materially change the coding, format and clinical context of patient data. In addition, data may be omitted in some cases. CLINICAL DECISIONS SHOULD BE BASED ON THE PRIMARY CLINICAL RECORDS. [employer] provides no warranty or guarantee of the accuracy or completeness of information in this document.
[2023-11-30 09:41] LABS: Prostate Specific Antigen Dx 1.92 ng/mL (<=4.00)
== END 2023-11-30 07:25 | disposition home or self-care (01) ==
LOC: LAB 07:25
PROVIDERS: Family Provider Optometrist; PCP Family Medicine; Visit Provider Urology
DX: R97.20 Elevated prostate specific antigen [PSA] (principal)
CPT/HCPCS: 36415; 84153

== ENCOUNTER 2023-12-06 08:47 | Outpatient (OUT) | payer MEDICARE, OTHER, SELFPAY ==
--- NOTE | 2023-12-06 09:04 | CT_ITS ---
[address] [address] Patient Name: GERRY LAY MRN: [id number] date: 1950 Sex: M Assigned Patient Location: CT Current Patient Location: CT Accession/Order Number: [id number] Exam Date: 12/06/2023 09:40 Report Date: 12/06/2023 14:39 At the request of: SERGIO CONNELL Procedure: CT chest w con EXAMINATION: CT chest w con HISTORY: Nodule Of Lower Lobe Left Lung R91.1 COMPARISON: 05/04/2023 TECHNIQUE: Multi-planar CT images were created with IV contrast. Axial, Coronal, and Sagittal images. Dose reduction techniques were achieved by using automated exposure control and/or adjustment of mA and/or kV according to patient size and/or use of iterative reconstruction technique. FINDINGS: LUNGS: Stable irregular semisolid / groundglass left lower lobe nodule measuring 10 x 6 mm in the left lower lobe axial image #52. No new significant pulmonary nodule or mass. PLEURA: No mass, effusion, or pneumothorax. VASCULATURE: No abnormality. LONG: No mass or adenopathy. MEDIASTINUM: No mass or adenopathy. CARDIAC: No enlargement or pericardial effusion Coronary arteries: Heavy atherosclerosis AORTA: Aneurysm of the ascending thoracic aorta measuring up to 4.4 cm in diameter. No aortic dissection CHEST WALL: No mass or axillary adenopathy. BONES: No bone lesion or fracture. LIMITED ABDOMEN: No suspicious findings. Limited images of the upper abdomen. OTHER: Negative. CT/CT chest w con IMPRESSION: Stable left lower lobe nodule Stable 4.4 cm aneurysm of the ascending thoracic aorta Electronically authenticated by: BUNNY GOLDSTEIN Date: 12/06/2023 14:39
--- OUTSIDE RECORDS SUMMARY | 2023-12-06 09:07 | XMS_ITS | CCD ---
Author Organization [facility] Care Team Providers Care Lead Burner Supervisor Name Role Phone REGINA CONNELL Primary Care Physician KO, DR REGINA Maldonado Attending Unavailable CONNELL, DR REGINA Maldonado Admitting Unavailable CONNELL, DR REGINA Maldonado Primary Care Unavailable Nidhi, DR Varner Consulting Unavailable CONNELL, DR REGINA Maldonado Consulting Unavailable QUILES, DR ZULEIKA Ibrahim Consulting Unavailabl e DOUG, DR ANDRADE Attending Unavailable DOUG, DR ANDRADE Admitting Unavailable KO, DR REGINA Maldonado Primary Care Unavailable DOUG, DR ANDRADE Consulting Unavailable Ziebdaria, DR Varner Consulting Unavailable CONNELL, DR REGINA Maldonado Consulting Unavailable CONNELL, DR REGINA Maldonado Attending Unavailable CONNELL, DR REGINA Maldonado Admitting Unavailable CONNELL, DR REGINA Maldonado Primary Care Unavailable CONNELL, DR REGINA Maldonado Consulting Unavailable CONNELL, DR REGINA Maldonado Attending Unavailable CONNELL, DR REGINA Maldonado Admitting Unavailable CONNELL, DR REGINA Maldonado Primary Care Unavailable BEAVER, DR ANDRADE Attending Unavailable BEAVER, DR ANDRADE Admitting Unavailable CONNELL, DR REGINA Maldonado Primary Care Unavailable DOUG, DR ANDRADE Consulting Unavailable BEAVER, DR ANDRADE Attending Unavailable BEAVER, DR ANDRADE Admitting Unavailable BEAVER, DR ANDRADE Consulting Unavailable CONNELL, DR REGINA Maldonado Primary Care Unavailable PATELRADHA Ibrahim Consulting Unavailable Regina Connell Unavailable BETSY CIFUENTES Attending Unavailable REGINA CONNELL BENJAMIN W Attending Unavailable DO Sukhdeep Crockett Attending Provider MD Regina Connell Primary Care Provider Sukhdeep Crockett Attending Unavailable Sukhdeep Crockett Admitting Unavailable Regina Connell Primary Care Unavailable Juan BEAVER Attending Unavailable Juan BEAVER Attending Unavailable Juan BEAVER Attending Unavailable Allergies Allergy Classification Reported Allergen(s) Allergy Type Date of Onset Reaction(s) Facility (3 sources) Acetaminophen / oxyCODONE; Translations: [acetaminophen-oxyc odone] Drug Allergy Nausea and vomiting (disorder) [facility] Comment on above: Can take [place] or hy drocodone without issue (17 sources) Codeine; Translations: [codeine] Drug Allergy 07-06-20 15 Nausea present (context-depen dent category) [facility] (6 sources) Penicillins; Translations: [penicillins] Drug allergy 07-09-18 62 fever [facility] (9 sources) Prochlorperazine; Translations: [prochlorperazine] Drug Allergy pt states family hx he has never had. sister x2 severe reaction muscle rigidity, Unknown [facility] (1 source) Acetaminophen / oxyCODONE Drug Allergy [facility] (1 source) Codeine Drug Allergy 09-16-19 14 [facility] (1 source) Prochlorperazine Drug Allergy 07-09-18 62 [facility] (11 sources) Penicillin G Drug Allergy Unknown [facility] Other (8 sources) Substance with penicillin structure and antibacterial mechanism of action (substance) Drug allergy 04-01-20 13 Unknown [facility] Other (8 sources) Compazine *ANTIPSYCHOTICS/ANT IMANIC AGENTS* Propensity to adverse reactions 04-01-20 13 Unknown [facility] Other (2 sources) patient allergy list reviewed by nurse or physicia Propensity to adverse reactions 11-08-19 14 Comment:Done [facility] Other (2 sources) Allergies Reconciled Propensity to adverse reactions Unknown [facility] Other (1 source) Codeine Drug Allergy 06-14-20 23 [facility] (1 source) Penicillin Drug Allergy 06-14-20 23 [facility] (1 source) Prochlorperazine Drug Allergy 06-14-20 [facility] (1 source) Unable to Assess Drug allergy (disorder) 06-21-20 [facility] (1 source) Acetaminophen / oxyCODONE; Translations: [Percocet 5/325] Drug Allergy [facility] Repository Medications Current Medications Medication Drug Class(es) Dates Sig (Normalized) Sig (Original) acetaminophen 325 mg / HYDROcodone bitartrate 5 mg oral tablet (1 source) Opioid Agonist Start: 1 [place] 325 mg-5 mg oral tablet 1 tab(s), Oral, TID for pain, 20 tab(s), Refill(s) 0, [facility]/pharmacy #[id number], 177.8, cm, 06/07/21 13:24:00 EST, Height/Length Dosing, 113, kg, 06/07/21 13:24:00 EST, Weight Dosing Start Date: 06/20/21 Status: Ordered CoQ10 (3 sources) Start: 1 take 300 mg by mouth once daily CoQ10 300 mg, Oral, Daily, Refills(s) 0, Prophylaxis Start Date: 04/21/21 Status: Ordered hydroCHLOROthiazide 25 mg oral tablet (15 sources) Thiazide Diuretic Start: 4 take 1 tablet by mouth once daily Hydrochlorothiazide Active 25 MG PO Daily November 28, 2023 12:00am FreeTextSig: TAKE 1 TABLET DAILY; Note: Source Status: Continue; Provider: Ko Tapia ( ) Start: 01-26-2016 take 1 tablet by sondra th once daily hydrochlorothiazide 25 mg Tab 25 mg = 1 tab(s), Oral, Daily, Refills(s) 0 Start Date: 01/26/16 Status: Ordered levothyroxine sodium 0.088 mg oral tablet (16 sources) l-Thyroxine Start: 11-20-2023 Levothyroxine Active 0 .ROUTE .COMPLEX 90 November 20, 2023 1:08pm TAKE 1 TABLET ONCE DAILY Start: 11-20-2023 End: 11-20-2023 take 88 ug by mouth once daily Levothyroxine Discontin ued 88 MCG PO Daily November 20, 2023 12:00am November 20, 2023 1:08pm Start: 08-16-2022 take 1 tablet by sondra th every twenty-four hours Levothyroxine Sodium 88 MCG [...] Active rosuvastatin calcium 20 mg oral tablet (15 sources) HMG-CoA Reductase Inhibitor Start: 11-20-19 take 20 mg by mouth once daily Rosuvastatin Active 20 MG PO Daily November 20, 2023 12:00am Start: 08-16-2022 take 1 tablet by sondra th every twenty-four hours Rosuvastatin Calcium 20 MG [...] dysfunction, # 30 tab(s), Refills(s) 3, Pharmacy: [facility]/pharmacy #[id number], 178, cm, 11/02/23 11:57:00 EDT, Height/Length Dosing, 102, kg, 11/02/23 11:57:00 EDT, Weight Dosing Start Date: 4/26/24 Status: Ordered tamsulosin hydrochloride 0.4 mg oral capsule (15 sources) alpha-Adrenergic Jori Start: 11-28-2023 Tamsu losin Active MG PO November 28, 2023 12:00am FreeTextSig: Orally; Note: Source Status: Taking; Provider: Ko Tapia ( ) Start: 01-17-2021 take 1 capsule by [facility] twice daily Flomax 0.4 mg Cap 0.4 mg = 1 cap(s), Oral, BID, # 180 cap(s), Refills(s) 3, Pharmacy: [facility]/pharmacy #[id number], 178, cm, 05/29/22 9:35:00 EST, Height/Length [...] Onset: 5 Episodic Comment on above: in 2012 Conditions associated with dizziness or vertigo (2 [...] Test Name Value Interpretation Reference Range Facility Lab Reportson 12-04-2023 Lab Reports [id number] #1.00TIFF Normal [facility] Patient Educationon 11-02-19 Patient Education Urology Erectile Dysfunction Erectile [...] these instructions at home: Medicines ? Take ezsw-pbe-jyshrjv and prescription medicines only as told by [...] include cig (more content not included)... Normal [facility] Urology Office/Clinic Noteon 11-02-2023 Urology Office/Clinic Note Chief Complaint 1yr PSA & KUB HPI Staff 16 month f/u with PSA and KUB. (pt went to [place] for 3m) Dx: kidney stone and BPH [...] Information DOUG NATHAN, Juan Phan, [address] [place] [address]- Additional Instructions: 7 mos w/ PSA Patient Education Erectile Dysfunction I, Adriana Crane, personally scribed for Dr. Beaver on 11/02/2023 13:18:58. . Documentation recorded by the Adriana stroud, accurately reflects the services(s) I performed and [...] (Nausea present) (more content not included)... Normal [facility] Comment on above: Result Comment: Elec tronically Signed By: Juan BEAVER MD\.br\Date and Time Signed: 11/02/23 13:20 EDT\.br\Electronically Co-Signed By: Adriana Crane\Date and Time Co-Signed: 11/02/23 13:19 EDT [facility] 10-30-2023 Lab Reports [id number] #1.00TIFF Normal [facility] RAD - MISCon 10-30-2023 RAD - MIS [id number] #1.00TIFF Normal [facility] No Panel Informationon 10-28 Prostate Specific Antigen Total 3.70 ng/mL <=4.00 [facility] US carotid doppler BIon 06-08 US carotid doppler BI [place] [address] Ultrasound Report Signed Patient: Gerry Lay MR#: [id number] : 1950 Acct:[id number] Age/Sex: 72 / M ADM Date: 06/21/23 Loc: Room: Type: [facility] Attending Dr: Sukhdeep Crockett DO Ordering Provider: Sukhdeep Crocktet DO Date of Service: 06/21/23 US/US carotid [...] Mayo Sheikh M.D.06/22/2023 3:21 PM [facility] Tech: Yen Estrella Transcribed By: ESE 06/22/23 152 Dictated By: Mayo Sheikh MD 06/22/23 1520 Signed By: 06/22/23 152 [facility] ISTAT XRay CREon 06-21-2023 Creatinine [Mass/Vol] 1.3 mg/dL Normal 0.6-1.3 [facility] Comment on above: Result Comment: ER/E SD physician is notified/shown all ISTAT results. Critical values may be confirmed by laboratory testing if deemed necessary by ER attending doctor. Performed By: #### I SCRE #### [facility] [address] [place] [address] ISTAT GFR 58.368 [facility] Comment on above: Result Comment: PERF ORMED BY: [place] [address] PATHOLOGIST TECHNOLOGY INFUSION SPECIALIST LOGAN SERNA M.D. Performed By: #### I SCRE #### [facility] [address] [place] [address] MR head/brain wo/w conon MR head/brain wo/w con [facility] [place] [address] [place] [address] MRI Report Signed Patient: Gerry Lay MR#: [id number] : 1950 Acct:[id number] Age/Sex: 72 / M ADM Date: 06/21/23 Loc: MR Room: Type: [facility] Attending Dr: Sukhdeep Crockett DO Copies to: [...] Eloy Barnard M.D.06/21/2023 5:08 PM Dictation Location: [place] [address] Transcribed By: [facility] 06/21/231707 Dictated By: Eloy Barnard II, MD 06/21/23 1646 Signed By: 06/21/231707 [facility] RAD - MISCon 05-30-2023 RAD - MISC [id number] #1.00TIFF Normal [facility] Lab Reportson 05-28-2023 Lab Reports [id number] #1.00TIFF Normal [facility] Physician Orderon 05-07-2023 Physician Order [id number]# 1.00TIFF Normal [facility] Physician Order [id number] #1.00TIFF Normal [facility] US CAROTID ART BILon 06-22-2 022 US CAROTID ART LOUISE EXAMINATION: US [...] AIXA DURANT Date: 2022-06-21 23:19 Normal [facility] CBC AUTO DIFFon 06-21-2022 BASO # 0.1 103/ul Normal 0.0-0.1 [facility] Comment on above: Performed By: #### C BC ####[facility] [address] [place] [address]DrCamila Izaguirrestella Reyes Basophils/100 WBC (Bld) 0.9 % Normal 0.2-2.0 [facility] Comment on above: Performed By: #### C BC ####[facility] [address] [place], [place] [address]Dr. Giacomo Chambers EO # 0.2 103/ul Normal 0.0-0.7 [facility] Comment on above: Performed By: #### C BC ####[facility] [address] [place], [place] [address]Dr. Giacomo Chambers Eosinophils/100 WBC (Bld) 3.0 % Normal 0.9-7.0 [facility] Comment on above: Performed By: #### C BC ####[facility] [address] [place], [place] [address]Dr. Giacomo Chambers Erythrocyte distribution width (RBC) [Ratio] 12.7 % Normal 11.0-15.0 [facility] Comment on above: Performed By: #### C BC ####[facility] [address] [place], [place] [address]Dr. Giacomo Chambers Hematocrit (Bld) [Volume fraction] 48.4 % Normal 42.0-54.0 [facility] Comment on above: Performed By: #### C BC ####[facility] [address] [place], [place] [address]DrCamila Chambers Hemoglobin (Bld) [Mass/Vol] 16.1 g/dL Normal 14.0-18.0 [facility] Comment on above: Performed By: #### C BC ####[facility] [address] [place], [place] [address]DrCamila Chambers IG # 0.01 10e3/ul Normal 0.00-0.03 [facility] Comment on above: Performed By: #### C BC ####[facility] [address] [place], [place] [address]DrCamila Chambers IG % 0.2 % Normal 0.0-0.5 [facility] Comment on above: Performed By: #### C BC ####[facility] [address] [place], [place] [address]DrCamila Chambers LYMPH # 2.1 103/ul Normal 1.2-3.8 [facility] Comment on above: Performed By: #### C BC ####[facility] [address] [place] [address]Dr. Giacomo Chambers Lymphocytes/100 WBC (Bld) 36.7 % Normal 20.5-60.0 [facility] Comment on above: Performed By: #### C BC ####[facility] [address] [place] [address]Dr. Giacomo Chambers MANUAL DIFF REQ NO Normal [facility] [place] Comment on above: Performed By: #### C BC ####[facility] [address] [place] [address]Dr. Giacomo Chambers MCH (RBC) [Entitic mass] 30.6 pg Normal 25.9-34.0 [facility] Comment on above: Performed By: #### C BC ####[facility] [address] [place], [place] [address]Dr. Giacomo Chambers MCHC (RBC) [Mass/Vol] 33.3 g/dL Normal 29.9-35.2 [facility] Comment on above: Performed By: #### C BC ####[facility] [address] [place], [place] [address]DrCamila Chambers MCV (RBC) [Entitic vol] 91.8 fL Normal 80.0-94.0 [facility] Comment on above: Performed By: #### C BC ####[facility] [address] [place], [place] [address]Dr. Giacomo Chambers MONO # 0.7 103/ul Normal 0.3-0.8 [facility] Comment on above: Performed By: #### C BC ####[facility] [address] [place], [place] [address]Dr. Giacomo Chambers Monocytes/100 WBC (Bld) 12.1 % Critically high 1.7-12.0 [facility] Comment on above: Performed By: #### C BC ####[facility] [address] [place], [place] [address]Dr. Giacomo Chambers NEUT # 2.6 103/ul Normal 1.4-6.5 [facility] Comment on above: Performed By: #### C BC ####[facility] [address] [place] [address]Dr. Giacomo Chambers Neutrophils/100 WBC (Bld) 47.1 % Normal 43.0-75.0 [facility] Comment on above: Performed By: #### C BC ####[facility] [address] [place] [address]Dr. Giacomo Chambers Platelet mean volume (Bld) [Entitic vol] 10.0 fL Normal 9.5-13.5 [facility] Comment on above: Performed By: #### C BC ####[facility] [address] [place] [address]Dr. Giacomo Chambers PLT 188 103/ul Normal 150-450 [facility] Comment on above: Performed By: #### C BC ####[facility] [address] [place], [place] [address]Dr. Giacomo Chambers RBC 5.27 106/ul Normal 4.70-6.10 [facility] Comment on above: Performed By: #### C BC ####[facility] [address] [place], [place] [address]Dr. Giacomo Chambers WBC 5.6 103/ul Normal 4.0-11.0 [facility] Comment on above: Performed By: #### C BC ####[facility] [address] [place] [address]Dr. Giacomo Chambers FREE T4on 06-21-2022 Free T4 [Mass/Vol] 1.19 ng/dL Normal 0.76-1.46 [facility] Comment on above: Performed By: #### F T4 ####[facility] [address] [place], [place] [address]Dr. Giacomo Chambers GLYCOHEMOGLOBIN A1Con 2021 ADA RECOMMENDATION SEE BELOW Normal [facility] Comment on above: Result Comment: ADA RECOMMENDED LIMIT 4.0 - 6.0 ADA THERAPEUTIC TARGET < 7.0 ACTION SUGGESTED > 7.0 Performed By: #### A 1C ####[facility] [address] [place], [place] [address]YtDr. Giacomo Chambers Glucose [Mass/Vol] 134 mg/dL Normal [facility] Comment on above: Performed By: #### A 1C ####[facility] [address] [place], [place] [address]QjDr. Giacomo Chambers HbA1c (Bld) [Mass fraction] 6.3 % Critically high 4.5-6.2 [facility] Comment on above: Performed By: #### A 1C ####[facility] [address] [place], [place] [address]AsDr. Giacomo Chambers LIPID PROFILEon 06-21-2022 CHOL-HDL RATIO NORM SEE BELOW Normal [facility] Comment on above: Result Comment: 3.3 - 4.4 LOW RISK 4.4 - 7.1 AVERAGE RISK 7.1 - 11.0 MODERATE RISK >11.0 HIGH RISK Performed By: #### L IPID, CMP, TSH #### [facility] [address] [place] [address] [address] Giacomo Chambers Cholesterol [Mass/Vol] 162 mg/dL Normal <=200 [facility] Comment on above: Performed By: #### L IPID, CMP, TSH #### [facility] [address] [place] [address] [address] Giacomo Chambers Cholesterol in HDL [Mass/Vol] 55 mg/dL Normal 40-60 [facility] Comment on above: Performed By: #### L IPID, CMP, TSH #### [facility] [address] [place] [address] [address] Giacomo Chambers Cholesterol in LDL [Mass/Vol] 77.6 mg/dL Normal [facility] Comment on above: Performed By: #### L IPID, CMP, TSH #### [facility] [address] [place] [address] [address] Giacomo Chambers Cholesterol.total/Cho lesterol in HDL [Mass ratio] 2.9 {ratio} Normal [facility] Comment on above: Performed By: #### L IPID, CMP, TSH #### [facility] [address] [place] [address] [address] Giacomo Chambers HDL NORMAL > or = 60 mg/dl - LOW CARDIOVASCULAR RISK <40 mg/dl - HIGH CARDIOVASCULAR RISK Normal [facility] Comment on above: Performed By: #### L IPID, CMP, TSH #### [facility] [address] [place] [address] [address] Giacomo Chambesr LDL CALC NORMAL SEE BELOW Normal [facility] Comment on above: Result Comment: <100 mg/dl OPTIMAL 100 - 129 mg/dl NEAR OR ABOVE OPTIMAL 130 - 159 mg/dl BORDERLINE HIGH 160 - 189 mg/dl HIGH >190 mg/dl VERY HIGH Performed By: #### L IPID, CMP, TSH #### [facility] [address] [place] [address] [address] Giacomo Chambers Triglyceride [Mass/Vol] 147 mg/dL Normal <=150 [facility] Comment on above: Performed By: #### L IPID, CMP, TSH #### [facility] [address] [place] [address] [address] Giacomo Chambers VLDL CALC 29.4 mg/dL Normal [facility] Comment on above: Performed By: #### L IPID, CMP, TSH #### [facility] [address] [place] [address] [address] Giacomo Chambers MICROALBUMIN, RAND URon 06-08 mALB 1.6 mg/L Normal <=30.0 [facility] Comment on above: Performed By: #### M ALBR #### [facility] [address] [place] [address] [address] Giacomo Chambers PROF 14(COMP METB)on 022 Albumin [Mass/Vol] 4.0 g/dL Normal 3.4-5.0 [facility] Comment on above: Performed By: #### L IPID, CMP, TSH #### [facility] [address] [place] [address] [address] Giacomo Chambers Albumin/Globulin [Mass ratio] 1.1 {ratio} Normal [facility] Comment on above: Performed By: #### L IPID, CMP, TSH #### [facility] [address] [place] [address] [address] Giacomo Chambers ALP [Catalytic activity/Vol] 67 U/L Normal 46-116 [facility] Comment on above: Performed By: #### L IPID, CMP, TSH #### [facility] [address] [place] [address] [address] Giacomo Chambers ALT [Catalytic activity/Vol] 34 U/L Normal 16-63 [facility] Comment on above: Performed By: #### L IPID, CMP, TSH #### [facility] [address] [place] [address] [address] Giacomo Chambers Anion gap [Moles/Vol] 11.0 mmol/L Normal [facility] Comment on above: Performed By: #### L IPID, CMP, TSH #### [facility] [address] [place] [address] Dr. Giacomo Chambers AST [Catalytic activity/Vol] 28 U/L Normal 15-37 [facility] Comment on above: Performed By: #### L IPID, CMP, TSH #### [facility] [address] [place] [address] Dr. Giacomo Chambers Bilirubin [Mass/Vol] 0.9 mg/dL Normal 0.2-1.0 [facility] Comment on above: Performed By: #### L IPID, CMP, TSH #### [facility] [address] [place] [address] Dr. Giacomo Chambers Calcium [Mass/Vol] 9.4 mg/dL Normal 8.5-10.1 [facility] Comment on above: Performed By: #### L IPID, CMP, TSH #### [facility] [address] [place] [address] Dr. Giacomo Chambers Chloride [Moles/Vol] 102 mmol/L Normal 98-107 [facility] Comment on above: Performed By: #### L IPID, CMP, TSH #### [facility] [address] [place] [address] Dr. Giacomo Chambers CO2 [Moles/Vol] 31.2 mmol/L Normal 21.0-32.0 [facility] Comment on above: Performed By: #### L IPID, CMP, TSH #### [facility] [address] [place] [address] [address] Giacomo Chambers Creatinine [Mass/Vol] 1.13 mg/dL Normal 0.70-1.30 [facility] Comment on above: Performed By: #### L IPID, CMP, TSH #### [facility] [address] [place] [address] [address] Giacomo Chambers EGFR-AF ISRAELI >60 Normal >=60 [facility] Comment on above: Performed By: #### L IPID, CMP, TSH #### [facility] [address] [place] [address] [address] Giacomo Chambers EGFR-NON AF ISRAELI >60 Normal >=60 [facility] Comment on above: Performed By: #### L IPID, CMP, TSH #### [facility] [address] [place] [address] [address] Giacomo Chambers Globulin (S) [Mass/Vol] 3.5 g/dL Normal [facility] Comment on above: Performed By: #### L IPID, CMP, TSH #### [facility] [address] [place] [address] [address] Giacomo Chambers Glucose [Mass/Vol] 121 mg/dL Critically high 74-106 [facility] Comment on above: Performed By: #### L IPID, CMP, TSH #### [facility] [address] [place] [address] [address] Giacomo Chambers Potassium [Moles/Vol] 4.2 mmol/L Normal 3.5-5.1 [facility] Comment on above: Performed By: #### L IPID, CMP, TSH #### [facility] [address] [place] [address] [address] Giacomo Chambers Protein [Mass/Vol] 7.5 g/dL Normal 6.4-8.2 [facility] Comment on above: Performed By: #### L IPID, CMP, TSH #### [facility] [address] [place] [address] [address] Giacomo Chambers Sodium [Moles/Vol] 140 mmol/L Normal 136-145 [facility] Comment on above: Performed By: #### L IPID, CMP, TSH #### [facility] [address] [place] [address] [address] Giacomo Chambers Urea nitrogen [Mass/Vol] 23.0 mg/dL Critically high 7.0-18.0 [facility] Comment on above: Performed By: #### L IPID, CMP, TSH #### [facility] [address] [place] [address] [address] Giacomo Chambers Urea nitrogen/Creatinine [Mass ratio] 20.4 mg/mg Normal [facility] Comment on above: Performed By: #### L IPID, CMP, TSH #### [facility] [address] [place] [address] [address] Giacomo Chambers TSHon 06-21-2022 TSH 2.946 uIU/mL Normal 0.358-3.740 [facility] Comment on above: Performed By: #### L IPID, CMP, TSH #### [facility] [address] [place] [address] [address] Giacomo Chambers XR KUB 1 VIEWon [...] AIXA DURANT Date: 2022-05-03 22:01 Normal [facility] CBC AUTO DIFFon 12-07-2021 BASO # 0.1 103/ul Normal 0.0-0.1 [facility] Comment on above: Performed By: #### C BC #### [facility] [address] [address] [address] Giacomo Chambers Basophils/100 WBC (Bld) 0.7 % Normal 0.2-2.0 [facility] Comment on above: Performed By: #### C BC #### [facility] [address] [place] [address] Dr. Giacomo Chambers EO # 0.2 103/ul Normal 0.0-0.7 [facility] Comment on above: Performed By: #### C BC #### [facility] [address] [place] [address] Dr. Giacomo Chambers Eosinophils/100 WBC (Bld) 2.7 % Normal 0.9-7.0 [facility] Comment on above: Performed By: #### C BC #### [facility] [address] [place] [address] Dr. Giacomo Chambers Erythrocyte distribution width (RBC) [Ratio] 12.4 % Normal 11.0-15.0 [facility] Comment on above: Performed By: #### C BC #### [facility] [address] [place] [address] Dr. Giacomo Chambers Hematocrit (Bld) [Volume fraction] 47.5 % Normal 42.0-54.0 [facility] Comment on above: Performed By: #### C BC #### [facility] [address] [place] [address] Dr. Giacomo Chambers Hemoglobin (Bld) [Mass/Vol] 15.5 g/dL Normal 14.0-18.0 [facility] Comment on above: Performed By: #### C BC #### [facility] [address] [place] [address] Dr. Giacomo Chambers IG # 0.02 10e3/ul Normal 0.00-0.03 [facility] Comment on above: Performed By: #### C BC #### [facility] [address] [place] [address] Dr. Giacomo Chambers IG % 0.3 % Normal 0.0-0.5 [facility] Comment on above: Performed By: #### C BC #### [facility] [address] [place] [address] Dr. Giacomo Chambers LYMPH # 2.1 103/ul Normal 1.2-3.8 [facility] Comment on above: Performed By: #### C BC #### [facility] [address] [place] [address] Dr. Giacomo Chambers Lymphocytes/100 WBC (Bld) 30.9 % Normal 20.5-60.0 [facility] Comment on above: Performed By: #### C BC #### [facility] [address] [place] [address] Dr. Giacomo Chambers MANUAL DIFF REQ NO Normal [facility] Comment on above: Performed By: #### C BC #### [facility] [address] [place] [address] Dr. Giacomo Chambers MCH (RBC) [Entitic mass] 31.6 pg Normal 25.9-34.0 [facility] Comment on above: Performed By: #### C BC #### [facility] [address] [place] [address] Dr. Giacomo Chambers MCHC (RBC) [Mass/Vol] 32.6 g/dL Normal 29.9-35.2 [facility] Comment on above: Performed By: #### C BC #### [facility] [address] [place] [address] Dr. Giacomo Chambers MCV (RBC) [Entitic vol] 96.7 fL Critically high 80.0-94.0 [facility] Comment on above: Performed By: #### C BC #### [facility] [address] [place] [address] Dr. Giacomo Chambers MONO # 0.7 103/ul Normal 0.3-0.8 [facility] Comment on above: Performed By: #### C BC #### [facility] [address] [place] [address] Dr. Giacomo Chambers Monocytes/100 WBC (Bld) 10.5 % Normal 1.7-12.0 [facility] Comment on above: Performed By: #### C BC #### [facility] [address] [place] [address] Dr. Giacomo Chambers NEUT # 3.7 103/ul Normal 1.4-6.5 [facility] Comment on above: Performed By: #### C BC #### [facility] [address] [place] [address] Dr. Giacomo Chambers Neutrophils/100 WBC (Bld) 54.9 % Normal 43.0-75.0 [facility] Comment on above: Performed By: #### C BC #### [facility] [address] [place] [address] Dr. Giacomo Chambers Platelet mean volume (Bld) [Entitic vol] 9.9 fL Normal 9.5-13.5 [facility] Comment on above: Performed By: #### C BC #### [facility] [address] [place] [address] Dr. Giacomo Chambers PLT 208 103/ul Normal 150-450 [facility] Comment on above: Performed By: #### C BC #### [facility] [address] [place] [address] Dr. Giacomo Chambers RBC 4.91 106/ul Normal 4.70-6.10 [facility] Comment on above: Performed By: #### C BC #### [facility] [address] [place] [address] Dr. Giacomo Chambers WBC 6.7 103/ul Normal 4.0-11.0 [facility] Comment on above: Performed By: #### C BC #### [facility] [address] [place] [address] Dr. Giacomo Chambers FREE T4on 12-07-2021 Free T4 [Mass/Vol] 1.12 ng/dL Normal 0.76-1.46 [facility] Comment on above: Performed By: #### F T4 #### [facility] [address] [place] [address] Dr. Giacomo Chambers PROF CHEM 8 (BAS METB)on Anion gap [Moles/Vol] 13.0 mmol/L Normal [facility] Comment on above: Performed By: #### B MP, TSH #### [facility] [address] [place] [address] Dr. Giacomo Chambers Calcium [Mass/Vol] 9.5 mg/dL Normal 8.5-10.1 [facility] Comment on above: Performed By: #### B MP, TSH #### [facility] [address] [address] [address] Giacomo Chambers Chloride [Moles/Vol] 104 mmol/L Normal 98-107 [facility] Comment on above: Performed By: #### B MP, TSH #### [facility] [address] [address] [address] Giacomo Chambers CO2 [Moles/Vol] 32.0 mmol/L Normal 21.0-32.0 [facility] Comment on above: Performed By: #### B MP, TSH #### [facility] [address] [address] [address] Giacomo Chambers Creatinine [Mass/Vol] 1.06 mg/dL Normal 0.70-1.30 [facility] Comment on above: Performed By: #### B MP, TSH #### [facility] [address] [place] [address] Dr. Giacomo Chambers EGFR-AF ISRAELI 60 mL/min/1.73m2 Normal >=60 [facility] Comment on above: Performed By: #### B MP, TSH #### [facility] [address] [place] [address] Dr. Giacomo Chambers EGFR-NON AF ISRAELI 60 mL/min/1.73m2 Normal >=60 [facility] Comment on above: Performed By: #### B MP, TSH #### [facility] [address] [place] [address] Dr. Giacomo Chambers Glucose [Mass/Vol] 94 mg/dL Normal 74-106 [facility] Comment on above: Performed By: #### B MP, TSH #### [facility] [address] [place] [address] Dr. Giacomo Chambers Potassium [Moles/Vol] 4.0 mmol/L Normal 3.5-5.1 [facility] Comment on above: Performed By: #### B MP, TSH #### [facility] [address] [place] [address] Dr. Giacomo Chambers Sodium [Moles/Vol] 145 mmol/L Normal 136-145 [facility] Comment on above: Performed By: #### B MP, TSH #### [facility] [address] [place] [address] Dr. Giacomo Chambers Urea nitrogen [Mass/Vol] 17.0 mg/dL Normal 7.0-18.0 [facility] Comment on above: Performed By: #### B MP, TSH #### [facility] [address] [place] [address] Dr. Giacomo Chambers Urea nitrogen/Creatinine [Mass ratio] 16.0 mg/mg Normal [facility] Comment on above: Performed By: #### B MP, TSH #### [facility] [address] [place] [address] Dr. Giacomo Chambers TSHon 12-07-2021 TSH 4.398 uIU/mL Critically high 0.358-3.740 [facility] Comment on above: Performed By: #### B MP, TSH #### [facility] [address] [place] [address] Dr. Giacomo Chambers TSH RANGE SEE BELOW Normal [facility] Comment on above: Result Comment: <0.3 4 UIU/ml HYPERTHYROID 0.34-5.60 UIU/ml EUTHYROID >5.60 UIU/ml HYPOTHYROID Performed By: #### B MP, TSH #### [facility] [address] [place] [address] Dr. Giacomo Chambers [facility]on 11-06 SARS-CoV-2 (COVID-19) RNA RADHA+probe Ql (Unsp spec) Detected Critically abnormal NOT DETECTED [facility] Comment on above: Result Comment: This test is not yet approved or cleared by the [place] FDA. When there are no FDA-approved or cleared tests available, and other criteria are met, FDA can make tests available under an emergency access mechanism called an Emergency Use Authorization (EUA). The EUA for this test is supported by the [place] of Health and Human Service's (HHS's) declaration [...] be used). Performed By: #### C VDTBH ####[facility] [address] [address]Dr. Giacomo Chambers CALCULI, URINARYon 2 2,8 Dihydroxyadenine Normal [facility] Comment on above: Performed By: #### C ALCULI ####[facility] [address] [place], [place] [address]Dr. Giacomo Chambers Ammonium Acid Urate Normal [facility] Comment on above: Performed By: #### C ALCULI ####[facility] [address] [place], [place] [address]Dr. Giacomo Chambers Bilirubin Ql (U) Normal [facility] Comment on above: Performed By: #### C ALCULI ####[facility] [address] [place], [place] [address]Dr. Giacomo Chambers Ca Oxalate Dihydrate Normal [facility] Comment on above: Performed By: #### C ALCULI ####[facility] [address] [place], [place] [address]Dr. Giacomo Chambers CaHPO4 (Brushite) Normal The [facility] Comment on above: Performed By: #### C ALCULI ####[facility] [address] [place], [place] [address]Dr. Giacomo Chambers Calcium Bilirubinate Normal [facility] Comment on above: Performed By: #### C ALCULI ####[facility] [address] [place], [place] [address]Dr. Giacomo Chambers Calcium Carbonate Normal [facility] Comment on above: Performed By: #### C ALCULI ####[facility] [address] [place], [place] [address]Dr. Giacomo Chambers Calcium Oxalate Monohydrate 100 % Normal [facility] Comment on above: Performed By: #### C ALCULI ####[facility] [address] [place], [place] [address]Dr. Giacomo Chambers Calcium Palmitate Normal [facility] Comment on above: Performed By: #### C ALCULI ####[facility] [address] [address]Dr. Giacomo Chambers Calcium Phosphate Normal [facility] Comment on above: Performed By: #### C ALCULI ####[facility] [address] [address]Dr. Giacomo Chambers Calcium Stearate Normal [facility] Comment on above: Performed By: #### C ALCULI ####[facility] [address] [address]Dr. Giacomo Chambers Carbonate Apatite Normal [facility] Comment on above: Performed By: #### C ALCULI ####[facility] [address] [place], [place] [address]Dr. Giacomo Chambers Cellular Material Normal [facility] Comment on above: Performed By: #### C ALCULI ####[facility] [address] [place], [place] [address]Dr. Giacomo Chambers Cholesterol Normal [facility] Comment on above: Performed By: #### C ALCULI ####[facility] [address] [address]Dr. Giacomo Chambers Color (U) Brown Normal [facility] Comment on above: Performed By: #### C ALCULI ####[facility] [address] [address]Dr. Giacomo Chambers Comment [facility] Comment on above: Performed By: #### C ALCULI ####[facility] [address] [place], [place] [address]Dr. Giacomo Chambers Comment Comment Normal [facility] Comment on above: Result Comment: Calc ulus received in liquid. Wet calculi must be dried before analysis, which delays reporting of results. Leaving calculi in liquid (such as water, saline, blood, urine) may lead to changes in composition. Performed By: #### C ALCULI ####[facility] [address] [address]Dr. Giacomo Chambers Comment: Comment Normal [facility] Comment on above: Result Comment: Stanislav kenny questions regarding Calculi Analysis contact [facility] at: [phone]. Performed By: #### C ALCULI ####[facility] [address] [place], [place] [address]Dr. Giacomo Chambers Composition Comment Normal [facility] Comment on above: Result Comment: Perc entage (Represents the % composition) Performed By: #### C ALCULI ####[facility] [address] [place], [place] [address]Dr. Giacomo Chambers Cystine Normal [facility] Comment on above: Performed By: #### C ALCULI ####[facility] [address] [place], [place] [address]Dr. Giacomo Chambers Disclaimer: Comment Normal [facility] Comment on above: Result Comment: This test was developed and its performance characteristics determined by [facility]. It has not been cleared or approved by the Food and Drug Administration. Performed By: #### C ALCULI ####[facility] [address] [place], [place] [address]Dr. Giacomo Chambers Dried Blood Normal [facility] Comment on above: Performed By: #### C ALCULI ####[facility] [address] [place], [place] [address]Dr. Gicaomo Chambers Drug or Metabolite Normal [facility] Comment on above: Performed By: #### C ALCULI ####[facility] [address] [place], [place] [address]Dr. Giacomo Chambers Hydroxyapatite Normal [facility] Comment on above: Performed By: #### C ALCULI ####[facility] [address] [place], [place] [address]Dr. Giacomo Chambers Mg NH4 PO4 (Struvite) Normal [facility] Comment on above: Performed By: #### C ALCULI ####[facility] [address] [place], [place] [address]Dr. Giacomo Chambers MgHPO4 (Newberyite) Normal [facility] Comment on above: Performed By: #### C ALCULI ####[facility] [address] [place], [place] [address]Dr. Giacomo Chambers Other component(s) Normal [facility] Comment on above: Performed By: #### C ALCULI ####[facility] [address] [address]Dr. Giacomo Chambers PDF . Normal [facility] Comment on above: Performed By: #### C ALCULI ####[facility] [address] [address]Dr. Giacomo Chambers Photo Comment Normal [facility] Comment on above: Result Comment: Phot fazal will follow under a separate cover Performed By: #### C ALCULI ####[facility] [address] [address]Dr. Giacomo Chambers Please note: Comment [facility] Comment on above: Result Comment: Calc derek report will follow via computer, mail or career information specialist delivery. Performed By: #### C ALCULI ####[facility] [address] [address]Dr. Giacomo Chambers Size 4x3 [facility] Comment on above: Result Comment: Mult iple pieces received. Dimensions of the largest piece reported. Performed By: #### C ALCULI ####[facility] [address] [address]Dr. Giacomo Chambers Sodium Acid Urate Normal [facility] Comment on above: Performed By: #### C ALCULI ####[facility] [address] [address]Dr. Giacomo Chambers Source Comment [facility] Comment on above: Result Comment: Not provided Performed By: #### C ALCULI ####[facility] [address] [address]Dr. Giacomo Chambers Triamterene [facility] Comment on above: Performed By: #### C ALCULI ####[facility] [address] [address]Dr. Giacomo Chambers Uric Acid [facility] Comment on above: Performed By: #### C ALCULI ####[facility] [address] [address]Dr. Giacomo Chambers Uric Acid Dihydrate Normal [facility] Comment on above: Performed By: #### C ALCULI ####[facility] [address] [address]Dr. Zinastella Reyes Weight 82 mg Normal [facility] Comment on above: Performed By: #### C ALCULI ####[facility] [address] [id number]. Giacomo Chambers Xanthine Normal [facility] Comment on above: Performed By: #### C ALCULI ####[facility] [address] [address]Dr. Giacomo Chambers PROF CHEM 8 (BAS METB)on Anion gap [Moles/Vol] 13.0 mmol/L Normal [facility] Comment on above: Performed By: #### B MP ####[facility] [address] [address]Dr. Giacomo Chambers Calcium [Mass/Vol] 8.7 mg/dL Normal 8.5-10.1 [facility] Comment on above: Performed By: #### B MP ####[facility] [address] [address]Dr. Giacomo Chambers Chloride [Moles/Vol] 101 mmol/L Normal 98-107 [facility] Comment on above: Performed By: #### B MP ####[facility] [address] [address]Dr. Giacomo Chambers CO2 [Moles/Vol] 28.9 mmol/L Normal 21.0-32.0 [facility] Comment on above: Performed By: #### B MP ####[facility] [address] [address]Dr. Giacomo Chambers Creatinine [Mass/Vol] 1.04 mg/dL Normal 0.70-1.30 [facility] Comment on above: Performed By: #### B MP ####[facility] [address] [address]Dr. Giacomo Chambers EGFR-AF ISRAELI >60 Normal >=60 [facility] Comment on above: Performed By: #### B MP ####[facility] [address] [id number]. Giacomo Chambers EGFR-NON AF ISRAELI >60 Normal >=60 [facility] Comment on above: Performed By: #### B MP ####[facility] [address] [address]Dr. Giacomo Chambers Glucose [Mass/Vol] 111 mg/dL Critically high 74-106 [facility] Comment on above: Performed By: #### B MP ####[facility] [address] [address]Dr. Giacomo Chambers Potassium [Moles/Vol] 3.9 mmol/L Normal 3.5-5.1 [facility] Comment on above: Performed By: #### B MP ####[facility] [address] [address]Dr. Giacomo Chambers Sodium [Moles/Vol] 139 mmol/L Normal 136-145 [facility] Comment on above: Performed By: #### B MP ####[facility] [address] [address]Dr. Giacomo Chambers Urea nitrogen [Mass/Vol] 18.0 mg/dL Normal 7.0-18.0 [facility] Comment on above: Performed By: #### B MP ####[facility] [address] [address]Dr. Giacomo Chambers Urea nitrogen/Creatinine [Mass ratio] 17.3 mg/mg Normal [facility] Comment on above: Performed By: #### B MP ####[facility] [address] [address]Dr. Giacomo Chambers XR KUB 1 VIEWon 11-11-2021 XR [...] by: RADHA PATEL Date: 2021-11-11 16:26 Normal [facility] Vital Signs Date Time Vital Sign Value Performing Clinician Facility 11-28-2023 10:03-0400 Body height 177.8 cm [facility] 11-28-2023 10:03-0400 Body mass index (BMI) [Ratio] 34.7 kg/m2 [facility] 11-28-2023 10:03-0400 Body weight 109.76 kg [facility] 11-28-2023 10:03-0400 Diastolic blood pressure 77 mm[Hg] [facility] 11-28-2023 10:03-0400 Heart rate 71 /min [facility] 11-28-2023 10:03-0400 Systolic blood pressure 127 mm[Hg] [facility] 11-02-2023 11:55-0400 Blood Pressure Location Juan BEAVER [facility] 11-02-2023 11:55-0400 Diastolic blood pressure 89 mm[Hg] Juan BEAVER [facility] 11-02-2023 11:55-0400 Heart rate 80 /min Juan BEAVER [facility] 11-02-2023 11:55-0400 Respiratory rate 16 /min Juan BEAVER [facility] 11-02-2023 11:55-0400 Systolic blood pressure 132 mm[Hg] Juan BEAVER [facility] 06-21-2023 11:33-0500 Body height 177.8 cm MD Regina Connell Work Phone: [facility] 06-21-2023 11:33-0500 Body weight 106.59 kg MD Regina Connell Work Phone: [facility] 03-15-2023 13:30-0400 Body height 177.8 cm Regina Connell Other [employer] Other 03-15-2023 13:30-0400 Body mass index (BMI) [Ratio] 34.15 kg/m2 Regina Connell Other [employer] Other 03-15-2023 13:30-0400 Body weight 107.96 kg Regina Connell Other [employer] Other 03-15-2023 13:30-0400 Diastolic blood pressure 70 mm[Hg] Regina Connell Other [employer] Other 03-15-2023 13:30-0400 Respiratory rate 12 /min Regina Connell Other [employer] Other 03-15-2023 13:30-0400 Systolic blood pressure 132 mm[Hg] Regina Connell Other [employer] Other 01-01-2023 08:45-0400 Body height 177.8 cm Regina Connell Other [employer] Other 01-01-2023 08:45-0400 Body mass index (BMI) [Ratio] 34 kg/m2 Regina Connell Other [employer] Other 01-01-2023 08:45-0400 Body weight 107.5 kg Regina Connell Other [employer] Other 01-01-2023 08:45-0400 Diastolic blood pressure 75 mm[Hg] Regina Connell Other [employer] Other 01-01-2023 08:45-0400 SaO2% (BldA) [Mass fraction] 97 % Regina Connell Other [employer] Other 01-01-2023 08:45-0400 Systolic blood pressure 132 mm[Hg] Regina Connell Other [employer] Other 05-29-2022 09:29-0500 Blood Pressure Location Juanmilka BEAVER [facility] 05-29-2022 09:29-0500 Diastolic blood pressure 76 mm[Hg] Juan BEAVER [facility] 05-29-2022 09:29-0500 Heart rate 70 /min Juan BEAVER [facility] 05-29-2022 09:29-0500 Respiratory rate 16 /min Juan BEAVER [facility] 05-29-2022 09:29-0500 Systolic blood pressure 127 mm[Hg] Juan BEAVER [facility] 11-14-2021 10:33-0400 Blood Pressure Location Juan BEAVER [facility] 11-14-2021 10:33-0400 Diastolic blood pressure 83 mm[Hg] Juan BEAVER [facility] 11-14-2021 10:33-0400 Heart rate 71 /min Juan BEAVER [facility] 11-14-2021 10:33-0400 Systolic blood pressure 160 mm[Hg] Juan BEAVER [facility] Encounters Encounter Date Encounter Type Care Provider Facility Start: 05-26-2024 ambulatory Juan Hernandez ty:[facility] [place] Start: 11-28-2023 End: 11-28-2023 ambulatory [facility] Work Phone: Start: 11-28-2023 End: 11-28-2023 Patient encounter procedure [facility] Work Phone: Start: 11-20-2023 Non-patient / Non-visit [facility] Work Phone: Start: 11-02-2023 End: 11-03-2023 ambulatory Juan Sylvester BEAVER Facility:[facility] Start: 11-02-2023 End: 11-02-2023 Patient encounter procedure Juan BEAVER [facility] [place] Start: 10-29-2023 Non-patient / Non-visit [facility] Phys[facility] Work Phone: Start: 06-21-2023 End: 06-21-2023 ambulatory Sukhdeep Crockett Facility:[facility] Start: 06-21-2023 End: 06-21-2023 ambulatory MD Regina Connell Work Phone: [facility] Work Phone: Start: 06-21-2023 End: 06-21-2023 Patient encounter procedure MD Regina Connell Work Phone: [facility] [place] Work Phone: Start: 06-04-2023 ambulatory Juan Hernandez ty:[facility] Start: 05-28-2023 End: 05-28-2023 ambulatory REGINA CONNELL Not Available Start: 05-24-2023 End: 05-24-2023 ambulatory BETSY CIFUENTES Not Available Start: 05-07-2023 End: 05-07-2023 ambulatory Regina Connell Other [employer] Other Start: 05-07-2023 Telephone encounter Regina Ko [facility] Start: 05-02-2023 End: 05-02-2023 ambulatory Regina Ko Other [employer] Other Start: 05-02-2023 Telephone encounter Regina Ko [facility] Start: 04-10-2023 End: 04-10-2023 ambulatory Regina Ko Other [employer] Other Start: 04-10-2023 Telephone encounter Regina Ko [facility] Start: 03-26-2023 End: 03-26-2023 ambulatory Regina Ko Other [employer] Other Start: 03-26-2023 Telephone encounter Regina Ko [facility] Start: 03-20-2023 End: 03-20-2023 ambulatory Regina Ko Other [employer] Other Start: 03-20-2023 Telephone encounter Regina Ko [facility] [employer] Start: 03-15-2023 End: 03-15-2023 ambulatory Regina Ko Other [employer] Other Start: 03-15-2023 Office outpatient vi sit 15 minutes Regina Connell [facility] Start: 02-22-2023 End: 02-22-2023 ambulatory Regina Ko Other [employer] Other Start: 02-22-2023 Telephone encounter Regina Ko [facility] Start: 01-11-2023 End: 01-11-2023 ambulatory Regina Ko Other [employer] Other Start: 01-11-2023 Telephone encounter Regina Ko [facility] Start: 01-03-2023 End: 01-03-2023 ambulatory Regina Connell Other [employer] Other Start: 01-03-2023 Telephone encounter Regina Connell [facility] Start: 01-01-2023 End: 01-01-2023 ambulatory Regina Connell Other [employer] Other Start: 01-01-2023 Office outpatient vi sit 15 minutes Regina Connell [facility] Start: 06-21-2022 End: 06-22-[address] REGINA CONNELL Facility:[facility] Start: 06-14-2022 Adult health examination Regina Connell Other [employer] Other Start: 05-29-2022 End: 05-29-2022 Patient encounter procedure Juan BEAVER [facility] Start: 05-03-2022 End: 05-04-[address] JUAN BEAVER Facility:[facility] Start: 12-07-2021 End: [address] REGINA CONNELL Facility:[facility] Start: 11-23-2021 End: 11-23-[address] REGINA CONNELL Facility:[facility] Start: 11-14-2021 End: 11-15-[address] JUAN BEAVER Facility:[facility] Start: 11-14-2021 End: 11-14-2021 Patient encounter procedure Juan BEAVER [facility] Start: 11-11-2021 End: 11-12-[address] JUAN BEAVER Facility:[facility] Procedures Date Procedure Procedure Detail Performing Clinician Start: 06-21-2023 MRI of head MD Regina Connell Work Phone: Start: 05-03-[address] REGINA CONNELL Comment on above: Performed By: #### P SAD ####[place] [id number]. Giacomo Chambers Start: 06-16-2021 Extracorporeal shock wave lithotripsy [...] of bilateral carotid arteries US carotid doppler BI [facility] Start: 06-21-2023 US.doppler Carotid a rteries - bilateral [facility] Comprehensive metabo lic 2000 panel - Serum or Plasma [facility] Immunizations Immunization Date Immunization Notes Care Provider Mildred steward 06-14-2023 influenza virus vaccine, unspecified formulation [facility] 06-07-2022 influenza virus vaccine, unspecified formulation Juan BEAVER [facility] 04-03-2022 SARS-CoV-2 (COVID-19 ) [id number] Juan BEAVER [facility] Comment on above: Result Comment: 2023: [id number] 06-24-2021 influenza virus vaccine, unspecified formulation Juan BEAVER [facility] 05-02-2021 SARS-CoV-2 (COVID-19 ) mRNA-1273 vaccine Juan BEAVER [facility] 09-15-2020 SARS-CoV-2 (COVID-19 ) mRNA-1273 vaccine Juan BEAVER [facility] 08-18-2020 SARS-CoV-2 (COVID-19 ) mRNA-1273 vaccine Juan BEAVER [facility] 03-31-2020 influenza virus vaccine, split virus (incl. purified surface antigen) Regina Connell Other [employer] Other 03-31-2020 influenza virus vaccine, unspecified formulation [facility] 04-25-2019 influenza virus vaccine, unspecified formulation Juan BEAVER [facility] 07-16-2018 influenza virus vaccine, split virus (incl. purified surface antigen) Regina Connell Other [employer] Other 07-16-2018 influenza virus vaccine, unspecified formulation Juan BEAVER [facility] 07-07-2016 influenza virus vaccine, unspecified formulation Juan BEAVER [facility] 06-22-2015 influenza virus vaccine, split virus (incl. purified surface antigen) Regina Connell Other [employer] Other 06-22-2015 influenza virus vaccine, unspecified formulation Juan BEAVER [facility] 04-01-2013 tetanus and diphther ia toxoids, adsorbed, preservative free, for adult use (5 Lf of tetanus toxoid and 2 Lf of diphtheria toxoid) Regina Connell Other [facility] NEGATED: Highlighted row has not occurred!06-10-2019 pneumococcal polysaccharide vaccine, 23 valent Regina Connell Other [employer] Other Payers Date Payer Category Payer Self-pay 1959 Medicare [id number] 1959 Unknown [id number] 1950 Unknown [id number] 2.16.84 [id number] 1950 Unknown [id number] 2.16.84 [id number] 1950 Unknown [id number] 2.16.84 0.1.188063.3.579.2.593 1950 Unknown [id number] 2.16.84 0.1.107766.3.579.2.593 1950 Unknown [id number] 2.16.84 0.1.257715.3.579.2.593 1950 Unknown [id number] 2.16.84 0.1.527099.3.579.2.593 1950 Unknown [id number] 2.16.840 .1.485618.3.579.2.1259 1950 Unknown [id number] 2.16.840 .1.709951.3.579.2.1259 1950 Unknown [id number] 2.16.8 40.1.630476.3.579.2.727 1950 Unknown [id number] 2.16.8 40.1.825923.3.579.2.727 1950 Unknown [id number] 2.16.8 40.1.954982.3.579.2.727 Unknown [id number] 2.16.8 [id number] Social History Date Type Detail Facility Start: 11-14-2021 End: 06-14-2023 Tobacco smoking status Never smoked tobacco (finding) [facility] Sex Assigned At Male [facility] Start: 1950 Sex Assigned At Male [facility] Tobacco smoking status Never [facility] Functional Status Date Assessment Result Facility 11-02-2023 Functional Status N/A [facility] 05-29-2022 Functional Status N/A [facility] Clinical Notes 11-14-2021 to 11-02-2023 Note Date [...] Follow these instructions at home: Medicines Take anzx-cfa-zhsiwiv and prescription medicines only as told by [...] provider. Document Revised: 09/21/2021 Document Reviewed: 09/21/2021 [employer] Patient Education 2022 [employer]. Follow Up Care 05/25/2023 13:25:49 With:DOUG NATHAN, Juan Phan, URL Address: [address] [place] [address]- When: Unknown [facility] 05-02-2023 Evaluation note Encounter Date Diagnosis Assessment Notes Apr, Left lower lobe pulmonary nodule (ICD-10 - R91.1) [employer] Other 09-07-2023 Evaluation note* Encounter Date Diagnosis Assessment Notes Treatment Notes Treatment Clinical Notes Mar, Benign paroxysmal positional vertigo due to bilateral vestibular disorder (ICD-10 - H81.13) Pt requests referral to Dr. Crockett - states his office would like a CT sinus to be complete prior to the OV. [employer] Other 07-06-2023 Evaluation note* Encounter Date Diagnosis Assessment Notes Treatment Notes Treatment Clinical Notes Jan, Dyspnea on exertion (ICD-10 - R06.09) [employer] Other 06-26-2023 Evaluation note* Encounter Date Diagnosis Assessment Notes Treatment Notes Treatment Clinical Notes Dec, Primary hypertension (ICD-10 - I10) Chronic problem- check labs and EKG. Upcoming trip to [place] later this summer. Dec, BPV (benign positional vertigo), bilateral (ICD-10 - H81.13) Order printed for PT Dec, Acquired hypothyroidism (ICD-10 - E03.9) Check labs. [employer] Other 11-21-2022 Hospital Discharge instructions Patient Education [...] include: ?Spinach. ?Rhubarb. ?Beets. ?Potato chips and dutch fries. ?Nuts. If you regularly take a diuretic medicine, make sure to eat at least 1 2 fruits or vegetables high in potassium each day. These include: ?Avocado. ?Banana. ?Ector, prune, carrot, or tomato juice. ?Baked potato. [...] Casseroles. Pizza. Lasagna. Frozen meals. Potato chips. Bangladeshi fries. Summary You can reduce your risk [...] 10/20/2011 Document Revised: 10/15/2019 Document Reviewed: 06/05/2017 [employer] Patient Education 2020 [employer]. Follow Up Care 11/14/2021 11:17:31 With:DOUG NATHAN, Juan Phan, URL Address: [facility] [address] , [place] [address]- When: Unknown [facility] 05-09-2022 Hospital Discharge instructions Patient Education 11/14/2021 [...] include: ?Spinach. ?Rhubarb. ?Beets. ?Potato chips and dutch fries. ?Nuts. If you regularly take a diuretic medicine, make sure to eat at least 1 2 fruits or vegetables high in potassium each day. These include: ?Avocado. ?Banana. ?Ector, prune, carrot, or tomato juice. ?Baked potato. [...] Casseroles. Pizza. Lasagna. Frozen meals. Potato chips. Bangladeshi fries. Summary You can reduce your risk [...] 10/20/2011 Document Revised: 10/15/2019 Document Reviewed: 06/05/2017 [employer] Patient Education 2020 [employer]. Follow Up Care 07/15/2021 13:17:36 With:Juan BEAVER MD, URL Address: [facility] [address] , [place] [address]- When: Unknown [facility] evaluation + Plan note Future Appointments Appointment Date:05/29/2022 09:15:00 AM Scheduled Provider:Juan BEAVER MD Location:[facility] Appointment Type:URO Office Visit Diagnostic Tests Pending * PSA Total 11/14/21 * Calculi Analysis Urinary 11/14/[address] [facility] evaluation + Plan note Future Appointments Appointment Date:06/04/2023 09:15:00 AM Scheduled Provider:Juan BEAVER MD Location:[facility] Appointment Type:URO Office Visit Diagnostic Tests Pending * PSA Total 05/29/22 [facility] evaluation + Plan note Future Appointments Appointment Date:05/26/2024 08:45:00 AM Scheduled Provider:Juan BEAVER MD Location:[facility] Appointment Type:URO Office Visit Diagnostic Tests Pending * PSA Total 12/22/23 * PSA Total 03/09/24 [facility] evalviwrpb noteNo [facility]No[facility] [employer] Other Evaluation noteNo assessment information available [facility] Work Phone: Evaluation note* Diagnosis Onset Date Resolution Status HTN (hypertension) acute Hyperlipidemia acute Hypothyroid acute [facility] Work Phone: History general Narrative - Reported* Type Description Date Medical History Kidney stones Medical History Hypercholesterolemia Surgical History lithotripsy Surgical History cystoscopy Surgical History knee arthroscopy Surgical History rotator cuff Surgical History cholecystectomy Surgical History Colonoscopy 12/2022 Hospitalization History see above [place] [employer] Other Hospital course Narrative No data available for this section [facility] progress note No data available for this section [facility] reason for visit Narrativereferral for vertigo, [facility] [employer] Other Summary Purpose Family History No Family History Records Found Relationship Condition Age at Onset Recorded Date/T abelardo brother Heart disease Unknown Unknown father Unknown Disorder of lung Unknown Advance Directives No Advanced Directives Records Found Advance Directive Response Recorded Date/ Time Advance Directives No June 12, 2023 12:51pm Advance Directive Response Recorded Date/ Time Advance Directives No June 12, 2023 1:51pm Reason for Referral Reason vertigo - today s visit Diagnosis 1 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) Referral Organization [facility] Referring Provider First Name Regina Referring Provider Last Name Ko Referring Provider Specialty [facility] Referred Organization [facility] Referred Provider Sukhdeep Crockett Referred Address ,[place], [place],[address] Referred Provider Specialty Otolaryngolo gy Referral Priority Routine General Notes EdMadi huffya 11:33:32 AM >recieved today, insurance attached, waiting for notes to be locked to fax Anna Marie Mia 03/20/2023 09:26:55 AM >SENT TE TO LOCK NOTES Chief Complaint and Reason for Visit Chief Complaint H91.8X3 H81.391 R42 Chief Complaint Amb Documentation stuffy nose Reason for Visit HTN (hypertension) Hyperlipidemia Hypothyroid Additional Source Comments Patient Care team informatio n (unrecognized section and content) Team Status: Active Member Role Status Dates Regina Connell MD Primary Care Provider Active Team Status: Active Member Role Status Dates Regina Connell MD Primary Care Provide r, Attending Provider Active Start: October 29, 2023 Team Status: Active Member Role Status Dates Regina Connell MD Primary Care Provider Active Start: November 20, 2023 TYLOR Gaitan Attending Provider Active Start : November 20, 2023 Team Status: Inactive Member Role Status Dates Regina Connell MD Primary Care Provide r, Attending Provider Active Start: November 28, 2023 End: November 28, 2023 Team Status: Inactive Member Role Status Dates Sukhdeep Crockett DO Attending Provider Active Regina Connell MD Primary Care Provider Active (unrecognized sect ion and content) No Status Records FoundNo Status Records FoundNo Status Records FoundNo Status Records Found INFORMATION SOURCE (unrecogn ized section and content) DATE CREATED AUTHOR 06/30/2022 [facility] DATE CREATED AUTHOR AUTHOR'S ORGANIZ ATION 05/30/2023 [facility] EPIC DATE CREATED AUTHOR AUTHOR'S ORGANIZ ATION 08/17/2023 [facility] DATE CREATED AUTHOR AUTHOR'S ORGANIZ ATION 12/05/2023 [facility] REASON FOR VISIT (unrecogniz ed section and [...] BE BASED ON THE PRIMARY CLINICAL RECORDS. [employer] [facility]. provides no warranty or guarantee of the accuracy or completeness of information in this document.
[2023-12-06 09:25] LABS: Alanine Aminotransferase 27 U/L (16-63); Albumin Globulin Ratio 0.9; Albumin Level 3.6 g/dL (3.4-5.0); Alkaline Phosphatase 89 U/L (46-116); Aspartate Amino Transferase 20 U/L (15-37); BUN Creatinine Ratio 17.3; Bilirubin Total 0.6 mg/dL (0.2-1.0); Calcium 8.9 mg/dL (8.5-10.1); Chloride 102 mmol/L (98-107); Estimated GFR (African America >60 (>=60); Estimated GFR (Non-African Ame >60 (>=60); Globulin 3.8 g/dL; Glucose 125 mg/dL (74-106); Sodium 140 mmol/L (136-145); Total Protein 7.4 g/dL (6.4-8.2)
[2023-12-06 09:44] LABS: Free T4 1.23 ng/dL (0.76-1.46)
[2023-12-06 09:52] LABS: Cholesterol 172 mg/dL (<=200); HDL Cholesterol 57 mg/dL (40-60); Thyroid Stimulating Hormone 2.573 uIU/mL (0.358-3.740); Triglycerides 110 mg/dL (<=150)
[2023-12-06 09:59] LABS: Basophils Percent Auto 0.8 % (0.2-2.0); Eosinophils Absolute Auto 0.2 10^3/uL (0.0-0.7); Eosinophils Percent Auto 3.4 % (0.9-7.0); Hematocrit 47.5 % (42.0-54.0); Hemoglobin 15.4 g/dL (14.0-18.0); Immature Granulocytes Abs Auto 0.01 10^3/uL (0.00-0.03); Immature Granulocytes Pct Auto 0.2 % (0.0-0.5); Lymphocytes Absolute Auto 1.7 10^3/uL (1.2-3.8); Lymphocytes Percent Auto 33.5 % (20.5-60.0); Mean Corpuscular HGB Conc 32.4 g/dL (29.9-35.2); Mean Corpuscular Hemoglobin 31.2 pg (25.9-34.0); Mean Corpuscular Volume 96.2 fL (80.0-94.0); Mean Platelet Volume 10.3 fL (9.5-13.5); Monocytes Absolute Auto 0.6 10^3/uL (0.3-0.8); Monocytes Percent Auto 12.9 % (1.7-12.0); Neutrophils Absolute Auto 2.4 10^3/uL (1.4-6.5); Neutrophils Percent Auto 49.2 % (43.0-75.0); Platelet Count 218 10^3/uL (150-450); Red Blood Count 4.94 10^6/uL (4.70-6.10)
== END 2023-12-06 08:48 | disposition home or self-care (01) ==
LOC: CT 08:49
PROVIDERS: Family Provider Optometrist; PCP Family Medicine; Visit Provider Family Medicine
DX: R91.1 Solitary pulmonary nodule (principal); I10 Essential (primary) hypertension; E78.5 Hyperlipidemia, unspecified; E03.9 Hypothyroidism, unspecified; I71.21 Aneurysm of the ascending aorta, without rupture
CPT/HCPCS: 36415; 71260; 80053; 80061; 84439; 84443; 85025; Q9967

== ENCOUNTER 2024-01-14 08:00 | Outpatient (OUT) | payer MEDICARE, OTHER, SELFPAY ==
--- NOTE | 2024-05-27 08:48 | CT_ITS ---
[address] [address] Patient Name: GERRY LAY MRN: [id number] date: 1950 Sex: M Assigned Patient Location: LAB Current Patient Location: Accession/Order Number: [id number] Exam Date: 05/27/2024 09:30 Report Date: 05/28/2024 05:51 At the request of: SERGIO CONNELL Procedure: CT chest w con EXAMINATION: CT chest w con HISTORY: Nodule Of Lower Lobe Left Lung COMPARISON: CT chest 12/06/2023 TECHNIQUE: Multi-planar CT images were obtained without and/or with IV contrast as indicated by examination type. Axial, Coronal, and Sagittal images. Dose reduction techniques were achieved by using automated exposure control and/or adjustment of mA and/or kV according to patient size and/or use of iterative reconstruction technique. FINDINGS: LUNGS: Stable small nodular/groundglass opacity within anterior basilar segment of left lower lobe with the overall area approximately 10 x 6 mm. No new nodules or suspicious findings. No acute infiltrates. PLEURA: No mass, effusion, or pneumothorax. VASCULATURE: No abnormality. LONG: No mass or adenopathy. MEDIASTINUM: No mass or adenopathy. CARDIAC: No enlargement or pericardial thickening.. Coronary artery calcifications: AORTA: Fusiform dilation of ascending thoracic aorta, 4.5 cm. CHEST WALL: No mass or axillary adenopathy. BONES: No bone lesion or fracture. LIMITED ABDOMEN: No suspicious findings Limited images of the upper abdomen. OTHER: Negative. CT/CT chest w con IMPRESSION: 1. Stable left lower lobe small nodular/groundglass opacity; unchanged since first seen on 01/23/2023. This favors benign etiology. If patient is at increased risk for lung cancer consider follow-up imaging in one year. 2. Stable mild fusiform aneurysmal dilation of ascending thoracic aorta, 4.5 cm. Electronically authenticated by: AIXA DURANT Date: 05/28/2024 05:51
[2024-05-27 08:52] LABS: Estimated GFR (African America >60 (>=60 mL/min/1.73m^2); Estimated GFR (Non-African Ame 55 (>=60 mL/min/1.73m^2)
== END 2024-05-27 08:35 | disposition home or self-care (01) ==
PROVIDERS: Family Provider Optometrist; PCP Family Medicine; Visit Provider Family Medicine
DX: R91.1 Solitary pulmonary nodule (principal); Z29.89 Encounter for other specified prophylactic measures; N20.0 Calculus of kidney; I71.23 Aneurysm of the descending thoracic aorta, without rupture
CPT/HCPCS: 71260; Q9967

== ENCOUNTER 2024-04-08 09:54 | Outpatient (RCR) | payer MEDICARE, OTHER, SELFPAY | END 2024-06-12 10:11 | disposition home or self-care (01) | LOC: PT 09:54 | PROVIDERS: Family Provider Optometrist; PCP Family Medicine; Visit Provider Orthopaedic Surgery | DX: Z47.1 Aftercare following joint replacement surgery (principal); Z96.641 Presence of right artificial hip joint | CPT/HCPCS: 97110; 97112; 97163; 97530 ==

== ENCOUNTER 2024-05-21 07:45 | Outpatient (OUT) | payer MEDICARE, OTHER, SELFPAY ==
--- OUTSIDE RECORDS SUMMARY | 2024-05-21 08:00 | XMS_ITS | CCD ---
Author Organization [facility] Care Team Providers Care Pickup Driver Name Role Phone SERGIO CONNELL Primary Care Physician KO, DR SERGIO Maldonado Attending Unavailable CONNELL, DR SERGIO Maldonado Admitting Unavailable CONNELL, DR SERGIO Maldonado Primary Care Unavailable Ziebdaria, DR Varner Consulting Unavailable CONNELL, DR SERGIO Maldonado Consulting Unavailable QUILES, DR ZULEIKA Ibrahim Consulting Unavailabl e DOUG, DR ANDRADE Attending Unavailable CAMACHO, DR ANDRADE Admitting Unavailable CONNELL, DR SERGIO Maldonado Primary Care Unavailable DOUG, DR ANDRADE Consulting Unavailable Zieber, DR Varner Consulting Unavailable CONNELL, DR SERGIO Maldonado Consulting Unavailable CONNELL, DR SERGIO Maldonado Attending Unavailable CONNELL, DR SERGIO Maldonado Admitting Unavailable CONNELL, DR SERGIO Maldonado Primary Care Unavailable CONNELL, DR SERGIO Maldonado Consulting Unavailable CONNELL, DR SERGIO Maldonado Attending Unavailable CONNELL, DR SERGIO Maldonado Admitting Unavailable CONNELL, DR SERGIO Maldonado Primary Care Unavailable CAMACHO, DR ANDRADE Attending Unavailable CAMACHO, DR ANDRADE Admitting Unavailable CONNELL, DR SERGIO Maldonado Primary Care Unavailable CAMACHO, DR ANDRADE Consulting Unavailable CAMACHO, DR ANDRADE Attending Unavailable CAMACHO, DR ANDRADE Admitting Unavailable CAMACHO, DR ANDRADE Consulting Unavailable CONNELL, DR SERGIO Maldonado Primary Care Unavailable RADHA PATEL Consulting Unavailable Sergio Connell Unavailable DO Sukhdeep Crockett Attending Provider [phone] MD Sergio Connell Primary Care Provider Sukhdeep Crockett Attending Unavailable Sukhdeep Crockett Admitting Unavailable Sergio Connell Primary Care Unavailable Lupe CAMACHO Attending Unavailable CAMACHO, Lupe Phan Attending Unavailable CAMACHOLupe Attending Unavailable Pocos, Bunny Puentes Referring Unavailable Pocos, Bunny Puentes Attending Unavailable Pocos, Bunny Puentes Admitting Unavailable Pocos, Bunny Puentes Referring Unavailable Pocos, Bunny Puentes Admitting Unavailable Pocos, Bunny Puentes Attending Unavailable Pocos, Bunny Puentes Referring Unavailable Pocos, Bunny Puentes Admitting Unavailable Pocos, Bunny Puentes Attending Unavailable Pocos, Bunny Puentes Referring Unavailable Pocos, Bunny Puentes Attending Unavailable Pocos, Bunny Puentes Admitting Unavailable VANE, BETSY Puentes Attending Unavailable LILIYA, SUKHDEEP Valverde Attending Unavailable SERGIO CONNELL Referring Unavailable POCOS, BUNNY Puentes Referring Unavailable POCOS, BUNNY Puentes Attending Unavailable POCOS, BUNNY Puentes Referring Unavailable POCOS, BUNNY Puentes Referring Unavailable POCOS, BUNNY Puentes Attending Unavailable SUKHDEEP CROCKETT Attending Unavailable POCOS, BUNNY Puentes Referring Unavailable POCOS, BUNNY Puentes Attending Unavailable BENEDICTAIXA Attending Unavailable POCOS, BUNNY Puentes Referring Unavailable POCOS, BUNNY Puentes Referring Unavailable POCOS, BUNNY Puentes Attending Unavailable Ko NATHAN, Sergio Primary Care Provider Allergies Allergy Classification Reported Allergen(s) Allergy Type Date of Onset Reaction(s) Facility (5 sources) Acetaminophen / oxyCODONE; Translations: [acetaminophen-oxyc odone] Drug Allergy Nausea and vomiting (disorder) [facility] Comment on above: Can take [place] or hy drocodone without issue (20 sources) Codeine; Translations: [codeine] Drug Allergy 07-06-20 15 Nausea present (context-depen dent category), Nausea Only, Unknown [facility] (10 sources) Penicillins; Translations: [penicillins] Drug allergy 07-09-18 62 fever [facility] (15 sources) Prochlorperazine; Translations: [prochlorperazine] Drug Allergy 10-28-19 23 pt states family hx he has never had. sister x2 severe reaction muscle rigidity, Unknown [facility] (1 source) Acetaminophen / oxyCODONE Drug Allergy [facility] (1 source) Codeine Drug Allergy 09-16-19 14 [facility] (1 source) Prochlorperazine Drug Allergy 07-09-18 62 [facility] (11 sources) Penicillin G Drug Allergy Unknown [facility] Other (8 sources) Substance with penicillin structure and antibacterial mechanism of action (substance) Drug allergy 04-01-20 13 Unknown [facility] Other (8 sources) Compazine *ANTIPSYCHOTICS/ANT IMANIC AGENTS* Propensity to adverse reactions 04-01-20 13 Unknown [facility] Other (2 sources) patient allergy list reviewed by nurse or physicia Propensity to adverse reactions 11-08-19 14 Comment:Done [facility] Other (2 sources) Allergies Reconciled Propensity to adverse reactions Unknown [facility] Other (1 source) Codeine Drug Allergy 06-14-20 [facility] (1 source) Penicillin Drug Allergy 06-14-20 [facility] (1 source) Prochlorperazine Drug Allergy 06-14-20 [facility] (1 source) Unable to Assess Drug allergy (disorder) 06-21-20 [facility] (3 sources) Acetaminophen / oxyCODONE; Translations: [Percocet 5/325] Drug Allergy [facility] Repository (2 sources) Acetaminophen / oxyCODONE Drug Allergy 10-28-19 GI intolerance [facility] Medications Current Medications Medication Drug Class(es) Dates Sig (Normalized) Sig (Original) acetaminophen 325 mg / HYDROcodone bitartrate 5 mg oral tablet (1 source) Opioid Agonist Start: 06-20-2021 [place] 325 mg-5 mg oral tablet 1 tab(s), Oral, TID for pain, 20 tab(s), Refill(s) 0, [id number], 177.8, cm, 06/07/21 13:24:00 EST, Height/Length Dosing, 113, kg, 06/07/21 13:24:00 EST, Weight Dosing Start Date: 06/20/21 Status: Ordered aspirin 81 mg delayed release oral tablet (3 sources) Platelet Aggregation Inhibitor, Nonsteroidal Anti-inflammatory Drug Start: 03-18-2024 take 1 tablet by mouth twice daily aspirin 81 mg Oral EC Tab 81 mg = 1 tab(s), Oral, BID, # 60 tab(s), Refills(s) 0, Pharmacy: [id number], 177.5, cm, 02/18/24 14:14:00 EDT, Height/Length Dosing, 111.4, kg, 02/18/24 14:14:00 EDT, Weight Dosing Start Date: 03/18/24 Status: Ordered take 1 tablet by mouth once adele y aspirin 81 MG EC tablet Take 81 mg by mouth Daily Active cefadroxil 500 mg oral capsule (1 source) Cephalosporin Antibacterial Start: 03-18-2024 End: 03-20-2024 take 1 capsule by mouth every twelve hours cefadroxil 500 mg Cap 500 mg = 1 cap(s), Oral, q12hr, X 2 day(s), # 4 cap(s), Refills(s) 0, [id number] 177.5, cm, 02/18/24 14:14:00 EDT, Height/Length Dosing, 111.4, kg, 02/18/24 14:14:00 EDT, Weight Dosing Start Date: 03/18/24 Stop Date: 03/20/24 Status: Ordered cephalexin 500 mg oral capsule (2 sources) Cephalosporin Antibacterial Start: 04-16-2024 cephalexin (Keflex) 500 MG capsule Indications: S/P total right hip arthroplasty Take all 4 capsules one hour before the procedure. 4 capsule 04/16/2024 Active CoQ10 (5 sources) Start: 04-21-2021 take 300 mg by mouth once daily CoQ10 300 mg, Oral, Daily, Refills(s) 0, Prophylaxis Start Date: 04/21/21 Status: Ordered docusate sodium 100 mg oral capsule (1 source) Start: 03-18-2024 take 1 capsule by mouth twice daily as needed for constipation Colace 100 mg Cap 100 mg = 1 cap(s), Oral, BID, PRN for constipation, # 40 cap(s), Refills(s) 0, Pharmacy: [id number], 177.5, cm, 02/18/24 14:14:00 EDT, Height/Length Dosing, 111.4, kg, 02/18/24 14:14:00 EDT, Weight Dosing Start Date: 03/18/24 Status: Ordered hydroCHLOROthiazide 25 mg oral tablet (19 sources) Thiazide Diuretic Start: 01-26-2016 take 1 tablet by mouth in the morning hydroCHLOROthiazide (HYDRODiuril) 25 MG tablet Take 25 mg by mouth in the morning. 09/25/2022 Active levothyroxine sodium 0.088 mg oral tablet (20 sources) l-Thyroxine Start: 11-20-2023 Levothyroxine Active 0 .ROUTE .COMPLEX 90 November 20, 2023 1:08pm TAKE 1 TABLET ONCE DAILY Start: 08-16-2022 End: 11-20-2023 take 88 ug by mouth [...] Orally tid prn for 10 days Active oxyCODONE hydrochloride 5 mg oral tablet (1 source) Opioid Agonist Start: 03-18-20 oxyCODONE 5 mg Tab 5 mg = 1 tab(s), Oral, As Directed, 1-2 po q4-6 hrs prn pain Dx: M16.11, Z96.641 Duration: 7days, # 40 tab(s), Refills(s) 0, Pharmacy: [id number], 177.5, cm, 02/18/24 14:14:00 EDT, Height/Length Dosing, 111.4, kg, 02/18/24 14:14:00 EDT, Weight Dosing Start Date: 03/18/24 Status: Ordered rosuvastatin calcium 20 mg oral tablet (19 sources) HMG-CoA Reductase Inhibitor Start: 08-16-19 take 20 mg by mouth once daily Rosuvastatin Active 20 MG PO Daily November 20, 2023 12:00am Start: 11-24-2016 take 20 mg by mouth at bedtime Crestor 20 mg, Oral, Bedtime, Refills(s) 0, High cholesterol Start Date: 11/24/16 Status: Ordered tadalafil 20 mg oral tablet (5 sources) Phosphodiesterase 5 Inhibitor Start: 11-02-2023 tadalafil (Cialis) 20 MG tablet TAKE 1 TABLET BY MOUTH NEEDED FOR ERECTILE DYSFUNCTION DIRECTED 02/03/2024 Active tamsulosin hydrochloride 0.4 mg oral capsule (19 sources) alpha-Adrenergic Jori Start: 01-07-2024 take 1 capsule by mouth twice daily Flomax 0.4 mg Cap 0.4 mg = 1 cap(s), Oral, BID, # 180 cap(s), Refills(s) 3, Pharmacy: [id number], 178, cm, 11/02/23 11:57:00 EDT, Height/Length Dosing, 102, kg, 11/02/23 11:57:00 EDT, Weight Dosing Start Date: 01/07/24 Status: Ordered Start: 11-28-2023 Tamsulosin Act faye MG PO November 28, 2023 12:00am FreeTextSig: Orally; Note: Source Status: Taking; Provider: Ko Tapia ( ) Start: 01-17-2021 take 1 capsule by mo ut twice daily Flomax 0.4 mg Cap 0.4 mg = 1 cap(s), Oral, BID, # 180 cap(s), Refills(s) 3, Pharmacy: [id number], 178, cm, 05/29/22 9:35:00 EST, Height/Length Dosing, 102.2, kg, 05/29/22 9:35:00 EST, Weight Dosing Start Date: 11/02/22 Status: Ordered take 1 capsule by mo uth every twenty-four hours in the morning tamsulosin (Flomax) 0.4 MG 24 hr capsule Take 0.4 mg by mouth in the morning and 0.4 mg before bedtime. Active ubidecarenone 10 mg oral capsule (2 sources) take 1 capsule by mouth in the morning coenzyme Q-10 10 MG capsule Take 10 mg by mouth in the morning. Active vitamin b6 100 mg oral tablet (2 sources) Start: 02-18-2024 take 100 mg by mouth twice daily Vitamin B6 100 mg, Oral, BID, Refills(s) 0, Prophylaxis Start Date: 02/18/24 Status: Ordered Completed/Discontinued Medications Medication Drug Class(es) [...] and medicines in contact with skin] Onset: 09-03-2015 Episodic Conditions associated with dizziness or vertigo (2 sources) Benign paroxysmal vertigo, bilateral Episodic Diabetes mellitus without complication (9 sources) Other abnormal glucose; Translations: [Abnormal glucose level] Onset: 06-25-2022 Episodic Disorders of lipid metabolism (20 sources) Hyperlipidemia; Translations: [Hyperlipidemia, unspecified] Onset: 07-10-2014 04-14-2020 Chronic Essential hypertension (20 sources) Essential (primary) hypertension; Translations: [Essential hypertension] Onset: 02-23-2016 Chronic Hyperplasia of prostate (20 sources) Benign prostatic hypertrophy with outflow obstruction; Translations: [Benign prostatic hyperplasia with lower urinary tract symptoms] Onset: 02-23-2016 Chronic Immunizations and screening for infectious disease (8 sources) Vaccination given; Translations: [Encounter for immunization] Episodic Malaise and fatigue (9 sources) Other fatigue; Translations: [Fatigue] Onset: 12-14-2021 Episodic Neoplasms of unspecified nature or uncertain behavior (8 sources) Neoplasm of uncertain behavior of skin; Translations: [Neoplasm of uncertain behavior of skin] Episodic Osteoarthritis (2 sources) Osteoarthritis of knee; Translations: [Osteoarthritis of knee, unspecified] Onset: 05-27-2023 05-27-2023 Chronic Other circulatory disease (4 sources) Other specified symptoms and signs involving the circulatory and respiratory systems; Translations: [OTH SPEC SX SIGNS INVLV CIRC RS] Onset: 06-21-2022 Episodic Other circulatory disease (8 sources) Cardiovascular symptoms; Translations: [Other specified symptoms and signs involving the circulatory and respiratory systems] Episodic Other circulatory disease (8 sources) Elevated blood-pressure reading without diagnosis of hypertension; Translations: [Elevated blood-pressure reading, without diagnosis of hypertension] Episodic Other connective tissue disease (2 sources) History of total hip arthroplasty; Translations: [Presence of right artificial hip joint] 04-16-2024 Chronic Other connective tissue disease (8 sources) Pain in left lower limb; Translations: [Pain in left leg] Episodic Other diseases of kidney and ureters (1 source) Urinary tract obstruction; Translations: [Other obstructive and reflux uropathy] Onset: 11-14-2021 Episodic Other lower respiratory disease (1 source) Other forms of dyspnea Episodic Other lower respiratory disease (2 sources) Nodule of lung; Translations: [Solitary pulmonary nodule] Episodic Other lower respiratory disease (1 source) Solitary pulmonary nodule Episodic Other male genital disorders (4 sources) Male erectile dysfunction, unspecified; Translations: [Erectile dysfunction] Onset: 11-02-2023 Chronic Other nutritional; endocrine; and metabolic disorders (8 sources) Obese class I; Translations: [Body mass index (BMI) 34.0-34.9, adult] Chronic Other nutritional; endocrine; and metabolic disorders (16 sources) Obese class II; Translations: [Body mass index (BMI) 36.0-36.9, adult] Onset: 07-19-2018 Chronic Other nutritional; endocrine; and metabolic disorders (8 sources) Obesity; Translations: [Obesity, unspecified] Onset: 07-10-2014 Chronic Other upper respiratory disease (8 sources) Seasonal allergic rhinitis; Translations: [Other seasonal allergic rhinitis] Onset: 07-19-2018 Chronic Other upper respiratory disease (8 sources) Allergic rhinitis; Translations: [Allergic rhinitis, cause unspecified] Onset: 11-03-2015 Chronic Other upper respiratory infections (8 sources) Chronic sinusitis; Translations: [Chronic sinusitis, unspecified] Chronic Residual codes; unclassified (8 sources) Requires influenza virus vaccination; Translations: [Need for prophylactic vaccination and inoculation, Influenza] Episodic Thyroid disorders (20 sources) Hypothyroidism; Translations: [Hypothyroidism, unspecified] Onset: 03-15-2017 04-14-2020 Chronic Transient cerebral ischemia (8 sources) Transient global amnesia; 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] Onset: 06-30-2015 Chronic Unclassified (2 sources) CONTACT W/AND (SUSP) EXPOS COVID-19; Translations: [CONTACT W/AND (SUSP) EXPOS COVID-19] Onset: 11-25-2021 Unclassified (1 source) Other specified hearing loss, bilateral; Translations: [Other specified hearing loss, bilateral] Onset: 06-21-2023 Viral infection (9 sources) COVID-19; Translations: [Disease caused by 2019-nCoV] Onset: 11-25-2021 Past or Other Problems Problem Classification Problem Date Documented Da te Episodic/Chronic Calculus of urinary tract (20 sources) Kidney stone; Translations: [Calculus of kidney] Onset: 07-10-2014 Episodic Comment on above: in 2012 Genitourinary symptoms and ill-defined conditions (14 sources) Microscopic hematuria; Translations: [Nocturia] Onset: 05-27-2023 04-21-2021 Episodic Other non-epithelial cancer of skin (7 sources) History of malignant neoplasm of skin; Translations: [Personal history of other malignant neoplasm of skin] Onset: 05-27-2023 04-14-2020 Episodic Other non-traumatic joint disorders (8 sources) Shoulder joint pain; Translations: [Pain in unspecified shoulder] Onset: 06-02-2013 Episodic Other nutritional; endocrine; and metabolic disorders (7 sources) History of hypercholesterolemi a; Translations: [Personal history of other endocrine, nutritional and metabolic disease] Onset: 05-27-2023 11-24-2016 Episodic Other nutritional; endocrine; and metabolic disorders (8 sources) Abnormal weight gain; Translations: [Abnormal weight gain] Onset: 12-28-2016 Episodic Other screening for suspected conditions (not mental disorders or infectious disease) (8 sources) Raised prostate specific antigen; Translations: [Elevated prostate specific antigen [PSA]] Onset: 05-27-2023 04-14-2020 Episodic Other upper respiratory infections (20 sources) Acute maxillary sinusitis; Translations: [Acute recurrent maxillary sinusitis] Onset: 11-07-2013 Episodic Skin and subcutaneous tissue infections (8 sources) Erythrasma; Translations: [Erythrasma] Onset: 01-19-2016 Episodic Unclassified (1 source) CONTACT W/AND (SUSP) EXPOS COVID-19; Translations: [CONTACT W/AND (SUSP) EXPOS COVID-19] Onset: 11-23-2021 Results Test Name Value Interpretation Reference Range Facility XR Hip - right 3 [facility] Result: Xrays taken in the office today, 3 views including AP pelvis and lateral hip of the operative side, saved to the permanent record, show stable position and alignment of the hip prosthesis. No sign of loosening, fracture or catastrophic wear. [facility] Radiology Study observation (narrative) [facility] Surgical Pathology Reporton 03-24-2024 Surgical Pathology Report [address] [id number]- Surgical Pathology Report Collected Date/Time: 03/18/2024 09:43 EDT Pathologist: Brendan Robles MD Received Date/Time: 03/18/2024 11:24 EDT Bunny Hewitt DO, DO, David A 07 Surgical Pathology Report - 03/24/2024 14:15 EDT - Auth (Verified) Final Diagnosis RIGHT HIP, BONE AND SOFT TISSUE, RIGHT TOTAL HIP ARTHROPLASTY: - Right femoral head with degenerative changes consistent with osteoarthritis. (Electronic Signature) Yan. Mragaret MD 03/24/2024 14:15 Clinical Information Pre-Op Diagnosis: Right hip osteoarthritis Procedure: Right total hip arthroplasty Post-Op Diagnosis: Right hip osteoarthritis Specimen(s) Received Bone and soft tissue right hip Gross Description Received in formalin labeled with patient name, number, and bone and soft tissue right hip is a femoral head measuring 5.4 x 4.8 cm and up to 5.5 cm from the neck margin to the top of the articular surface. The articular surface is thin, rough, and eburnated with osteophyte formation present. The neck margin is smooth. Cross-sectioning through the femoral head contains an area of yellow discoloration adjacent to the articular surface measuring 0.9 x 0.5 cm. Adjacent to this area is a curz/red cystic area measuring 0.7 x 0.4 cm. Also received in the container are multiple fragments of cruz/light yellow/reddish-brown bone and soft tissue measuring in aggregate 8.5 x 7.5 x 5 cm. Specimen is submitted in two cassettes: 1 - Soft tissue 2 - Bone after decalcification (DC) DC:MCA Microscopic Description Microscopic examination performed unless gross only specified. Normal [facility] Comment on above: Performed By: #### [id number] #### [facility] Laboratory [address] [place] [address] Main OR Intraoperative Recor don 03-20-2024 Main OR Intraoperative Record Main OR Intraoperative Record IntraOp Document Type FT Summary Primary Physician: Bunny Hewitt DO Finalized Date/Time: 03/20/24 10:47:20 Pt. Name: LAYGERRY./Sex: 1950 Male Med Rec #: [id number] Physician: Bunny Hewitt DO Financial #: [id number] Pt. Type: A Room/Bed: [place] [address] Admit/Disch: 03/18/24 05:49:12 - 03/18/24 14:50:00 Institution: Case Times FT Entry 1 Patient Times In Room 03/18/24 08:32:00 Out Room 03/18/24 10:31:00 Procedure Times Start 03/18/24 09:09:00 Stop 03/18/24 10:24:00 Anesthesia Times Start 03/18/24 08:32:00 Stop 03/18/24 10:31:00 Block Timeout w/ 03/18/24 08:15:00 Anesthesia Last Modified By: Homar STEPHENSON, Harika Aguilera 03/18/24 10:31:36 General Comments: block by dr veloz, assisted by danika sher, colton. heart rate 67, spo2 99% on 2lpm o2 via nasal cannula. colton oleary 03/20/24 Chart opened to review and send charges [facility] Case Attendance FT Entry 1 Entry 2 Entry 3 Case Attendee Regino Mast DO, David A Wilhelm CST, Macie C Role Performed Anesthesiologist Surgeon - Primary FLIGHT TECHNICIAN/SA Brazing Machine Operator Time In 03/18/24 08:32:00 03/18/24 08:58:00 03/18/24 08:32:00 Time Out 03/18/24 10:31:00 03/18/24 10:16:00 03/18/24 10:31:00 Procedure HIP TOTAL ROBOT HIP TOTAL ROBOT HIP TOTAL ROBOT ARTHROPLASTY(Right) ARTHROPLASTY(Right) ARTHROPLASTY(Right) Comments dr veloz supervising Last Modified By: Homar RN, Harika Graf RN, Harika Graf RN, Harika Aguilera 03/18/24 10:31:37 03/18/24 10:31:37 03/18/24 10:31:37 Entry 4 Entry 5 Entry 6 Case Attendee Homar STEPHENSON, Nohemi Bright CST, Liane E Role Performed Numerical Control Operator - Primary Scrub - Primary Staff - Other Time In 03/18/24 08:32:00 03/18/24 08:32:00 03/18/24 08:32:00 Time Out 03/18/24 10:31:00 03/18/24 10:31:00 03/18/24 10:31:00 Procedure HIP TOTAL ROBOT HIP TOTAL ROBOT HIP TOTAL ROBOT ARTHROPLASTY(Right) ARTHROPLASTY(Right) ARTHROPLASTY(Right) Comments 2nd scrub Last Modified By: Homar RN, Harika Graf RN, Harika Graf RN, Harika Aguilera 03/18/24 10:31:37 03/18/24 10:31:37 03/18/24 10:31:37 Entry 7 Entry 8 Case Attendee Manan Thorpe Alfons Ii F Role Performed Staff - Other Staff - Other Time In 03/18/24 08:32:00 03/18/24 08:32:00 Time Out 03/18/24 10:31:00 03/18/24 09:06:00 Procedure HIP TOTAL ROBOT HIP TOTAL ROBOT ARTHROPLASTY(Right) ARTHROPLASTY(Right) Comments 3rd scrub Last Modified By: Homar RN, Harika Graf RN, Harika Aguilera 03/18/24 10:31:37 03/18/24 10:31:37 General Comments: mendel spence, also in attendance. colton olearyemployment attorney Protocols FT Pre-Care Text: Implements protective measures prior to operative or invasive procedure, confirms identity before the operative or invasive procedure, verifies operative procedure, surgical site, and laterality Entry 1 Procedure(s) HIP TOTAL ROBOT Patient Identity Birthday, Blood Band, ARTHROPLASTY(Right) Verified (select at ID Band Check least 2): Consents / H and P Anesthesia Consent, Operative Site Present Verified H&P, Surgery/Procedure Marking Verified Consent, Transfusion Consent Surgical Site Yes Laterality Verified Yes Verified Procedure Verified Yes Correct Patient Yes Position Verified Availability Equipment, Implant, Prep Dry Yes Verified (If Medication, X-ray Applicable) PreOp Antibiotic Yes Time Out Regino Mast, Given Participants Bunny Hewitt DO, Wilhelm CST, Macie C, Crosby RN, Maryuri Albright Sydney A, Marietta HENSON, Ila Hebert Kendall R, Letrondo, Alfons Ii F Time Out Complete 03/18/24 09:00:00 Outcomes Met? Yes Last Modified By: Harika Graf RN 03/18/24 09:14:33 Post-Care Text: The patient is free from signs and symptoms of injury caused by extraneous objects Allergy Information FT Pre-Care Text: Verifies allergies Entry 1 Allergies Reviewed? Yes Allergies Reviewed Self/Patient With Outcomes Met? Yes Last Modified By: Harika Graf RN 03/18/24 09:14:59 Post-Care Text: The patient received appropriate medication(s) safely administered during the perioperative period Surgical Procedures FT Entry 1 Procedure Description Procedure HIP TOTAL ROBOT Modifiers Right ARTHROPLASTY Surgeon Description RIGHT ROBOTIC ASSIST TOTAL HIP ARTHROPLASTY Primary Procedure Yes Primary Surgeon Bunny Hewitt DO Start 03/18/24 09:09:00 Stop 03/18/24 10:24:00 Anesthesia Type General Surgical Service Orthopedics Wound Class 1 - Clean Last Modified By: Gypsy Mcmanus CST 03/20/24 10:18:12 General Case Data FT Pre-Care Text: Classifies surgical wound, implements aseptic technique, initiates traffic control Entry 1 Case Information OR OR 7 FT Case Level Level 6 Wound Class 1 - Clean Specialty Orthopedics ASA Class 3 Preop Diagnosis RIGHT HIP OSTEOARTHRITIS Postop Same As Preop Yes Postop Diagnosis RIGHT HIP OSTEOARTHRITIS Outcomes Met? Yes Last Modified By: Harika Graf RN 03/18/24 0 (more content not included)... Normal [facility] XR Hip 1 View Right + Pelvis on 03-20-2024 XR Hip 1 View Right + Pelvis Exam Date/Time: 03/18/2024 10:56 EDT Reason for Exam: Post Op Report IMPRESSION: INTERVAL POSTSURGICAL CHANGES OF RIGHT TOTAL HIP ARTHROPLASTY. EXAM: X-ray hip, 2 view HISTORY: Postoperative evaluation total hip arthroplasty TECHNIQUE: Frontal and lateral views of the right hip COMPARISON: 02/15/2016 radiographs FINDINGS: Interval postsurgical changes of right total hip arthroplasty including soft tissue emphysema. Alignment is anatomic. No periprosthetic abnormality. Postsurgical changes of left hip arthroplasty again identified. Ordering Provider: Bunny Hewitt FINAL REPORT Dictated: 03/20/2024 1:39 pm Loyd Fernandez DO Signed (Electronic Signature): 03/20/2024 1:39 pm Signed by: Loyd Fernandez DO Transcribed by: NICCI Technologist: RICHARD Technical Comments Radiation Dose: Ka,r in mGy = na DAP = na Normal [facility] Operative Reporton Operative Report Operative Report SURGERY DATE: 03/18/2024 PROCESSING TECHNOLOGIST: Verna Cisneros C.F.A. PREOPERATIVE DIAGNOSIS: Right hip osteoarthritis POSTOPERATIVE DIAGNOSIS: Right hip osteoarthritis OPERATION: Right hip robotic-assisted total hip arthroplasty using Andrew, posterolateral approach ANESTHESIA: Spinal as well as fascia iliaca block ANESTHESIOLOGIST: Jeanne Arndt ESTIMATED BLOOD LOSS: 300 mL INTRAVENOUS FLUIDS: Please see operative record SPECIMEN: Bone and soft tissue DRAINS: None COMPLICATIONS: None IMPLANT: Arminto Total Hip System with a size 56 Trident II cluster cup, two 6.5 mm screws measuring 30 mm each, a 56 x 36 neutral X3 polyethylene liner on the femoral side, a size 8 127-degree Accolade II with a 36+0 Biolox femoral head HISTORY/OPERATIVE INDICATIONS: The patient is a 73-year-old white female who presents complaining of pain and difficulty with regard to the right hip. This has been going on for some time. With the continued nature of the symptoms, the patient does decide upon surgical intervention on the right side. The patient does appear to be clinically indicated/cost effective for the same. Please refer to the preoperative progress notes, History and Physical for further details. INTRAOPERATIVE PATHOLOGY: Upon dissection of the right hip from the standard open posterolateral approach, there is noted to be severe arthrosis. Total hip arthroplasty is done with gnosticism of limb stability, alignment and length. This is done with the Powerset robotic platform. The patient did tolerate the procedure well under spinal anesthetic with fascia iliaca block. The block is requested per myself to aid in intraoperative, perioperative, and postoperative pain management. This does appear to be clinically indicated and cost effective. PROCEDURE: After informed consent is obtained, the risks, complications, reasonable expectations of the above procedure are discussed at length. The patient is taken to the Operating Room, placed on the operating room table in supine position. At this point, the patient is given a spinal anesthetic. The patient is placed in the left lateral decubitus position with the right hip up on the pegboard positioner. Down leg well padded, well-padded axillary roll. The hip is sterilely prepped and draped in the usual surgical fashion at which time the site verification process is undertaken with a time-out procedure. At this point, the Andrew platform is verified as well. The focus is to the iliac crest array site. A stab incision is made and the first pin is placed. The guide is then utilized to place a second and third pin in the standard fashion. The array is set and registered to the robot. Posterolateral approach to the hip is then utilized. The short external rotators, piriformis tagged and released. Capsule is opened in a T fashion tagging the corners. The femoral checkpoint is placed in the greater trochanter and the limb length is identified with this and the EKG marker over the inferior pole of the patella. At this point, the hip is dislocated. The acetabular labrum is removed and the acetabular checkpoint is placed. The gross checkpoints are then registered with the robot followed by the fine registration within adequate parameters. At this point, the reaming is performed using a 56 reamer and the robotic assistance. Adequate reaming is attained. The osteophytes are then removed. The hip is lavaged with an irrigant and the cup is brought into the field. This is seated using the Powerset robotic assist. Adequate seating is identified. The screws were placed by drilling, measuring for depth and placed individually as described and the final liner is impacted after lavage once again, this is a 56 x 36. At this point, the focus is to the femur. Proximal femur is fully identified. Box osteotome is utilized to open the proximal femur followed by a canal sounder. Broaching is done up to a 8; 8 broach is left in place with good fit and fill. The decision for the 8 stem is made. This is then trialed with a 127-degree neck angle. Adequate trialing is found to be with a 36+0 head. This did correlate with the preoperative plan after testing leg length once again. The decision on the stem is made. The canal is lavaged and the stem is impacted. The Biolox head is impacted over a cleansed, dried trunnion. The hip is located with gnosticism of limb stability, alignment and the length. The procedure is deemed adequate and complete. The checkpoints are removed individually. [id number]-prcx is utilized for the posterior capsule, piriformis, back to the greater trochanter. Irrisept soak is performed. This was lavaged away. While the soak is being performed, the pelvic array site is removed. The pins are removed. The wounds are irrigated. The hip is injected with 2 gm of tranexamic acid. Posterior capsule is repaired. The Zynrelef is then injected under the abductor musculature along the posterior capsule down along the femoral neck. The fascial layer closed with #2 Quill (more content not included)... Normal [facility] Comment on above: Result Comment: Elec tronically Signed By: Bunny Hewitt DO\.br\Date and Time Signed: 03/19/24 07:15 EDT ABO/Rhon 03-18-2024 ABO/Rh Positive Invalid Interpretation Code [facility] Comment on above: Performed By: #### 2 [id number] #### [facility] [address] [place] [address] ABO/Rh History Checkon 03-18 ABO/Rh History Check Verified Hx Blood Type Normal [facility] Comment on above: Performed By: #### 1 [id number] #### [facility] [address] [place] [address] ABSCon 03-18-2024 ABSC Gel Interp Negative Normal [facility] Comment on above: Performed By: #### 1 [id number] ####[facility] [id number] [place] [address] BLOOD BANKOrdered By: Raya Ames on 03-18-2024 ABO/Rh Interp Positive Invalid Interpretation Code [facility] BB Subsection ABSC Gel Interp Negative (03/18/24 6:35 AM) Normal [facility] BB Subsection Blood Bank ID#on 03-18-2024 BBID# [id number] Invalid Interpretation Code [facility] Comment on above: Performed By: #### 1 [id number] #### [facility] [address] [place] [address] Discharge Instructionson Discharge Instructions Discharge Instructions GERRY LAY :1950 Visit Date:03/18/2024 Inpatient Discharge Instructions Your Care Team Admitting Physician - Bunny Hewitt DO Referring Physician - Bunny Hewitt DO Reason for Your Visit RIGHT HIP OSTEOARTHRITIS Discharge Vitals Temperature (Temporal Artery) 36.2 ?C Heart Rate (Monitored) 72 Respiratory Rate 18 Blood Pressure 126/65 What to do next Previously Scheduled Follow-Up Appointments Sunday 8:45 AM EST With: DOUG NATHAN, Lupe Phan Where: [facility] [address] [place] [address]- New Follow Up Appointments after Discharge Follow Up with Bunny Hewitt When: 04/16/2024 02:30 PM EDT Comments: Appointment has already been scheduled. Call for any problems. Where: [address] [place] [address]- Business (1) Medications What How Much When Why Instructions Next Dose New aspirin (aspirin 81 mg Oral EC Tab) 1 Tablets By Mouth 2 times a day Pickup at [facility]/pharmacy #[id number] New cefadroxil (cefadroxil 500 mg Cap) 1 Capsules By Mouth Every 12 hours Duration: 2 Days Pickup at [facility]/pharmacy #6177 New docusate (Colace 100 mg Cap) 1 Capsules By Mouth 2 times a day as needed for for constipation Pickup at [facility]/pharmacy #6177 New oxycodone (oxyCODONE 5 mg Tab) 1 Tablets By Mouth As Directed 1-2 po q4-6 hrs prn pain Dx: M16.11, Z96.641 Duration: 7days Pickup at [facility]/pharmacy #6177 Unchanged hydrochlorothiazide (hydrochlorothiazide 25 mg Tab) 1 Tablets By Mouth Every day Unchanged levothyroxine (levothyroxine 75 mcg (0.075 mg) Tab) 1 Tablets By Mouth Every day Unchanged pyridoxine (Vitamin B6) 100 Milligram By Mouth 2 times a day Unchanged rosuvastatin (Crestor) 20 Milligram By Mouth At bedtime Unchanged tadalafil (Cialis 20 mg Tab) 1 Tablets By Mouth As Directed as needed for erectile dysfunction Erectile dysfunction Unchanged tamsulosin (Flomax 0.4 mg Cap) 1 Capsules By Mouth 2 times a day Unchanged ubiquinone (CoQ10) 300 Milligram By Mouth Every day Pharmacy Information [id number]: [address], [place] [id number] [phone] Allergies Compazine (pt states family hx he has never had. sister x2 severe reaction muscle rigidity) Percocet 5/325 (N&V - Nausea and vomiting) codeine (Nausea present) penicillins (fever) Devices Implanted/Removed This Visit Notice: You have devices implanted this visit that may not be MRI compatible. Implanted HIP TOTAL ROBOT ARTHROPLASTY Hip R 6.5MM LOW PROFILE HEX SCREW 03/18/2024 6.5MM LOW PROFILE HEX SCREW 03/18/2024 ACCOLADE II 127 DEGREE NECK ANGLE HIP STEM 03/18/2024 BIOLOX DELTA CERAMIC V40 FEMORAL HEAD 03/18/2024 TRIDENT II TRITANIUM CLUSTERHOLE ACETABULAR SHELL 03/18/2024 TRIDENT X3 0 DEGREE POLYETHYLENE INSERT 03/18/2024 Education Materials [place], [place] [facility] DISCHARGE INSTRUCTIONS HIP REPLACEMENT ARTHROPLASTY Posterior Lateral Approach INCISION CARE: Continue the daily dressing care to the hip as instructed in the hospital for 7 days postoperatively. The dressing will then be changed and worn an additional 7 days. You may then discontinue the dressing changes. The dressing over the upper pelvis area may be removed postoperatively on day #3 and left open to air. Please notify the office if any increase in redness, tenderness, drainage, fever, or wound separation is noted. DISLOCATION PRECAUTIONS: Continue to use the abduction pillow between the knees at all times, both while in bed and up in chair. This abduction pillow should be removed only while walking and performing physical therapy exercises; otherwise, to be used while sitting and while in bed. This will be maintained for six weeks postoperatively. At that time, you may begin using a regular bed pillow between your knees at night. You should continue to avoid crossing the knees or crossing the legs for six months postoperatively. Sitting in a chair should always be such that the knees are kept below the level of the hips to avoid increased flexion of the hip, possibly causing dislocation. MEDICATIONS: You may resume your home medications at the time of discharge. You may take up to 3,000 mg Acetaminophen (Tylenol) per day as needed. Duricef (cefadroxil) as prescribed for 4 doses. Start with the evening dose the day of surgery. Take 1 Ecotrin aspirin (81 mg) twice daily with food for the next 4 weeks. Start with evening dose the day of surgery. [facility] Discharge Instructions for Hip Replace. Page 2 Medications Cont... Pain medication has been prescribed as well. You may continue to use the pain medication every four hours as needed. Any narcotic pain medication can cause side effects including stomach upset, constipation, or light-headedness. You should not (more content not included)... Normal [facility] Comment on above: Result Comment: Elec tronically Signed By: Kalina STEPHENSON, Anila Peerz\.br\Date and Time Signed: 03/18/24 11:32 EDT Main OR PACU I Recordon 03-09 Main OR PACU I Record Main OR PACU I Rec ord PACU Phase I Document Type FT Summary Primary Physician: Bunny Hewitt DO Finalized Date/Time: 03/18/24 12:29:03 Pt. Name: GERRY LAY/Sex: 1950 Male Med Rec #: [id number] Physician: Bunny Hewitt DO Financial #: [id number] Pt. Type: A Room/Bed: Admit/Disch: 03/18/24 05:49:12 - Institution: Case Times PACU I FT Pre-Care Text: Identifies barriers to communication and implements measures to provide psychological support Develops individualized plan of care, and ensures continuity of care Maintains patient's dignity and privacy, and maintains patient confidentiality Identifies and reports philosophical, cultural, and spiritual beliefs and values Identifies individual values and wishes concerning care Implements aseptic technique, and administers prescribed antibiotic therapy and immunizing agents as ordered Evaluates postoperative tissue perfusion Implements thermoregulation measures, and monitors body temperature Evaluates postoperative respiratory status Evaluates postoperative cardiac status Evaluates postoperative neurological status Assesses pain control, collaborated in initiating patient-controlled analgesia and implements alternative methods of pain control Verifies allergies, administers prescribed medications and solutions, evaluates response to medications Entry 1 In PACU I 03/18/24 10:33:00 Discharge from PACU 03/18/24 11:36:00 I Outcomes Met? Yes Last Modified By: Eden Avila RN 03/18/24 12:28:45 Post-Care Text: The patient demonstrates knowledge of the expected response to the operative or invasive procedure The patient's care is consistent with the individualized perioperative plan of care The patient's right to privacy is maintained The patient's value system, lifestyle, ethnicity, and culture are considered, respected, and incorporated into the perioperative plan of care The patient participates in decisions affecting his or her perioperative plan of care The patient is free from signs and symptoms of infection The patient has wound/tissue perfusion consistent with or improved from baseline levels established preoperatively The patient is at or returning to normothermia at the conclusion of the immediate postoperative period The patient's respiratory function is consistent with or improved from baseline levels established preoperatively The patient's cardiovascular status is consistent with or improved from baseline levels established preoperatively The patient's cardiovascular status is consistent with or improved from baseline levels established preoperatively The patient demonstrates and/or reports adequate pain control throughout the perioperative period The patient received appropriate medication(s), safely administered during the perioperative period Acuity Level PACU I FT Entry 1 Start Time 03/18/24 10:33:00 Stop Time 03/18/24 11:36:00 Acuity Level Acuity Level I Last Modified By: Eden Avila RN 03/18/24 12:29:00 Finalized By: Eden Avila RN Document Signatures Signed By: Eden Avila RN 03/18/24 12:29 [facility] Main OR PACU II Recordon Main OR PACU II Record Main OR PACU II Record PACU Phase II Document Type FT Summary Primary Physician: Bunny Hewitt DO Finalized Date/Time: 03/18/24 14:53:34 Pt. Name: GERRY LAY /Sex: 1950 Male Med Rec #: [id number] Physician: Bunny Hewitt DO Financial #: [id number] Pt. Type: A Room/Bed: [facility] Admit/Disch: 03/18/24 05:49:12 - 03/18/24 14:50:00 Institution: Case Times PACU II FT Pre-Care Text: Identifies barriers to communication and implements measures to provide psychological support and determines knowledge level Develops individualized plan of care, and ensures continuity of care Maintains patient's dignity and privacy, and maintains patient confidentiality Identifies and reports philosophical, cultural, and spiritual beliefs and values Identifies individual values and wishes concerning care administers prescribed antibiotic therapy and immunizing agents as ordered, Evaluates postoperative tissue perfusion Implements thermoregulation measures, and monitors body temperature Evaluates postoperative respiratory status Evaluates postoperative cardiac status Evaluates postoperative neurological status Assesses pain control, collaborated in initiating patient-controlled analgesia and implements alternative methods of pain control Verifies allergies, administers prescribed medications and solutions, evaluates response to medications Entry 1 In PACU II 03/18/24 11:40:00 Discharge from PACU 03/18/24 14:50:00 II Outcomes Met? Yes Last Modified By: Anila Gilman RN 03/18/24 14:53:33 Post-Care Text: The patient demonstrates knowledge of the expected response to the operative or invasive procedure The patient's care is consistent with the individualized perioperative plan of care The patient's right to privacy is maintained The patient's value system, lifestyle, ethnicity, and culture are considered, respected, and incorporated into the perioperative plan of care The patient participates in decisions affecting his or her perioperative plan of care. The patient is free from signs and symptoms of infection The patient has wound/tissue perfusion consistent with or improved from baseline levels established preoperatively The patient is at or returning to normothermia at the conclusion of the immediate postoperative period The patient's respiratory function is consistent with or improved from baseline levels established preoperatively The patient's cardiovascular status is consistent with or improved from baseline levels established preoperatively The patient's neurological status is consistent with or improved from baseline levels established preoperatively The patient demonstrates and/or reports adequate pain control throughout the perioperative period The patient received appropriate medication(s), safely administered during the perioperative period Finalized By: Anila Gilman RN Document Signatures Signed By: Anila Gilman RN 03/18/24 14:53 Normal [facility] Main OR Preoperative Recordo n 03-18-2024 Main OR Preoperative Record Main OR Preoperative Record PreOp Document Type FT Summary Primary Physician: Bunny Hewitt DO Finalized Date/Time: 03/18/24 09:30:10 Pt. Name: GERRY LAY /Sex: 1950 Male Med Rec #: [id number] Physician: Bunny Hewitt DO Financial #: [id number] Pt. Type: A Room/Bed: 11/06 Admit/Disch: 03/18/24 05:49:12 - Institution: Case Times PreOp FT Pre-Care Text: Verifies consent for planned procedure, identifies individual values and wishes concerning care, includes family members in perioperative teaching Entry 1 Patient Times. In Pre Surgery 03/18/24 06:00:00 Out Pre Surgery 03/18/24 08:14:00 Outcomes Met? Yes Last Modified By: Harika Graf RN 03/18/24 09:30:09 Post-Care Text: The patient participates in decisions affecting his or her perioperative plan of care Finalized By: Harika Graf RN Document Signatures Signed By: Harika Graf RN 03/18/24 09:30 Normal [facility] Proceduralon 03-18-2024 Procedural Procedural Patient: GERRY LAY Age: 73 years Sex: Male : 1950 Associated Diagnoses: None Author: Lucas Veloz MD Procedure Nerve Block Block Type: Fascia iliaca block. Laterality: Right. Informed consent for anesthesia management: Anesthesia options discussed including nerve block, Description of the procedure, risks, benefits, and alternatives was provided, The patient's questions were addressed. Time out: Confirmed correct patient, procedure and site. Time: Date/Time 03/18/2024 10:20:00. Indication: Block for postoperative pain management as requested by surgeon. Anesthesia Method: IV Sedation with monitored anesthesia care, The patient remained awake and able to interact in a meaningful way throughout the procedure. Preparation: The patient was placed in the following position Sitting, Continuous pulse oximetry applied, Using maximal sterile barrier technique per current [facility] guidelines including hand hygeine, Guidance (Ultrasound used to identify anatomical landmarks, Using sterile gel and probe covers, Permanent image retained), The site was prepped with ChloraPrep. Procedure: Anesthetic Agent 35cc 0.25% Bupiv with epi, Needle was inserted without pain or parasthesia in the conscious patient, Number of attempts 1, Negative attempt at aspiration for blood, Medial and lateral spread of the anesthestic was observed, Periodic negative attempts at aspiration of blood were made as the local was injected, No pain or parathesia were elicited with injection of the anesthetic in the conscious patient, It was idetified that the correct anesthetic agent was administered to the correct site. Complications: None, The patient tolerated the procedure as expected. Normal [facility] CT Lower Extremity w/o Contr ast [place] 02-20-2024 CT Lower Extremity w/o Contrast Right Exam Date/Time: 02/18/2024 10:38 EDT Reason for Exam: RIGHT HIP OSTEOARTHRITIS Report IMPRESSION: CT FOR HIP PROSTHESIS CREATION. ADVANCED OSTEOARTHROSIS OF THE RIGHT HIP. EXAM: CT Lower Extremity w/o Contrast Right DATE: 02/18/2024 10:23 AM CLINICAL HISTORY: RIGHT HIP OSTEOARTHRITIS. COMPARISON: Pelvis and left hip 02/25/2016. TECHNIQUE: Spiral unenhanced imaging was obtained of the right lower extremity for prosthesis creation, using Andrew protocol. All CT scans at this facility use dose modulation, iterative reconstruction, and/or weight based dosing when appropriate to reduce radiation dose to as low as reasonably achievable. FINDINGS: Moderately extensive osteoarthritic changes are present of the right hip. There is no fracture, significant joint effusion, dislocation, worrisome bone destruction, radiodense foreign bodies, or other findings of concern identified. A total left hip arthroplasty is otherwise unremarkable. Additional imaging of both knees is noncontributory. Ordering Provider: Bunny Hewitt FINAL REPORT Dictated: 02/20/2024 4:43 pm Mark Zuniga MD Signed (Electronic Signature): 02/20/2024 4:43 pm Signed by: Mark Zuniga MD Transcribed by: NICCI Technologist: WILMAR Normal [facility] XR Chest 2 Viewson XR Chest 2 Views Exam Date/Time: 02/18/2024 10:28 EDT Reason for Exam: P.A.T. Report IMPRESSION: NO EVIDENCE OF ACTIVE CHEST DISEASE. CLINICAL HISTORY: P.A.T.. COMPARISON: 06/07/2021. COMMENT: The heart is normal in size. The mediastinum is unremarkable. The lungs appear clear. No infiltration nor pleural effusion is evident. No significant change is noted when compared to the prior exam. Ordering Provider: Alvarez Ahmad FINAL REPORT Dictated: 02/19/2024 8:03 am Yrn Kerr M.D. Signed (Electronic Signature): 02/19/2024 8:03 am Signed by: Yrn Kerr M.D. Transcribed by: NICCI Technologist: SAQIB Technical Comments Radiation Dose: Ka,r in mGy = na DAP = na Normal [facility] BMPon 02-18-2024 Anion gap [Moles/Vol] 12 mmol/L Normal 6-16 [facility] Comment on above: Performed By: #### 2 [id number] #### [facility] [address] [place] [address] Calcium [Mass/Vol] 9.8 mg/dL Normal 8.9-11.1 [facility] Comment on above: Performed By: #### 2 [id number] #### [facility] [address] [place] [address] Chloride [Moles/Vol] 104 mmol/L Normal 101-111 [facility] Comment on above: Performed By: #### 2 [id number] #### [facility] [address] [place] [address] CO2 [Moles/Vol] 28 mmol/L Normal 21-31 [facility] Comment on above: Performed By: #### 2 [id number] #### [facility] [address] [place] [address] Creatinine [Mass/Vol] 1.0 mg/dL Normal 0.5-1.3 [facility] Comment on above: Performed By: #### 2 [id number] #### [facility] [address] [place] [address] Glucose [Mass/Vol] 115 mg/dL Normal 55-199 [facility] Comment on above: Performed By: #### 2 [id number] #### [facility] [address] [place] [address] Potassium [Moles/Vol] 3.6 mmol/L Normal 3.5-5.3 [facility] Comment on above: Performed By: #### 2 [id number] #### [facility] [address] [place] [address] Sodium [Moles/Vol] 140 mmol/L Normal 135-145 [facility] Comment on above: Performed By: #### 2 [id number] #### [facility] [address] [place] [address] Urea nitrogen [Mass/Vol] 25 mg/dL High 5-21 [facility] Comment on above: Performed By: #### 2 [id number] #### [facility] [address] [place] [address] Urea nitrogen/Creatinine [Mass ratio] 25 No Units High 10-20 [facility] Comment on above: Performed By: #### 2 [id number] #### [facility] [address] [place] [address] CBC w/ Auto Diffon 4 Basophils/100 WBC (Bld) 0.7 % Normal 0.0-2.0 [facility] Comment on above: Performed By: #### 2 [id number] #### [facility] [address] [place] [address] Basophils/Leukocytes Auto (Bld) [Pure # fraction] 0.0 E9/L Normal 0.0-0.2 [facility] Comment on above: Performed By: #### 2 [id number] #### [facility] [address] [place] [address] Eosinophils (Bld) [#/Vol] 0.1 E9/L Normal 0.0-0.5 [facility] Comment on above: Performed By: #### 2 [id number] #### [facility] [address] [place] [address] Eosinophils/100 WBC (Bld) 1.2 % Normal 0.0-8.0 [facility] Comment on above: Performed By: #### 2 [id number] #### [facility] [address] [place] [address] Erythrocyte distribution width (RBC) [Ratio] 13.7 % Normal 10.9-14.2 [facility] Comment on above: Performed By: #### 2 [id number] #### [facility] [address] [place] [address] Hematocrit (Bld) [Volume fraction] 47.7 % Normal 37.7-49.0 [facility] Comment on above: Performed By: #### 2 [id number] #### [facility] [address] [place] [address] Hemoglobin (Bld) [Mass/Vol] 16.3 g/dL Normal 13.5-17.5 [facility] Comment on above: Performed By: #### 2 [id number] #### [facility] [address] [place] [address] Lymphocytes (Bld) [#/Vol] 1.3 E9/L Normal 1.0-4.0 [facility] Comment on above: Performed By: #### 2 [id number] #### [facility] [address] [place] [address] Lymphocytes/100 WBC (Bld) 20.2 % Normal 14.0-50.0 [facility] Comment on above: Performed By: #### 2 [id number] #### [facility] [address] [place] [address] MCH (RBC) [Entitic mass] 32.1 pg Normal 27.0-34.0 [facility] Comment on above: Performed By: #### 2 [id number] #### [facility] [address] [place] [address] MCHC (RBC) [Mass/Vol] 34.0 g/dL Normal 31.4-36.0 [facility] Comment on above: Performed By: #### 2 [id number] #### [facility] [address] [place] [address] MCV (RBC) [Entitic vol] 94.2 fL Normal 80.0-100.0 [facility] Comment on above: Performed By: #### 2 [id number] #### [facility] [address] [place] [address] Monocytes (Bld) [#/Vol] 0.7 E9/L Normal 0.2-1.0 [facility] Comment on above: Performed By: #### 2 [id number] #### [facility] [address] [place] [address] Neutrophils (Bld) [#/Vol] 4.2 E9/L Normal 2.0-7.5 [facility] Comment on above: Performed By: #### 2 [id number] #### [facility] [address] [place] [address] Neutrophils/100 WBC (Bld) 67.4 % Normal 36.0-75.0 [facility] Comment on above: Performed By: #### 2 [id number] #### [facility] [address] [place] [address] Platelet mean volume (Bld) [Entitic vol] 8.7 fL Normal 6.4-10.8 [facility] Comment on above: Performed By: #### 2 [id number] #### [facility] [address] [place] [address] Platelets (Bld) [#/Vol] 176.0 E9/L Normal 150.0-500.0 [facility] Comment on above: Performed By: #### 2 [id number] #### [facility] [address] [place] [address] RBC (Bld) [#/Vol] 5.1 E12/L Normal 4.3-5.9 [facility] Comment on above: Performed By: #### 2 [id number] #### [facility] [address] [place] [address] WBC corrected for nucl RBC Auto (Bld) [#/Vol] 6.2 E9/L Normal 4.0-11.0 [facility] Comment on above: Performed By: #### 2 [id number] #### [facility] [address] [place] [address] CHEMISTRYOrdered By: SYSTEM SYSTEM on 02-18-2024 Anion gap [Moles/Vol] 12 mmol/L Normal 6 - 16 mEq/L R emisol Chem Calcium [Mass/Vol] 9.8 mg/dL Normal 8.9 - 11. 1 mg/dL [facility] Chloride [Moles/Vol] 104 mmol/L Normal 101 - 1 11 mmol/L [facility] CO2 [Moles/Vol] 28 mmol/L Normal 21 - 31 mmol/L [facility] Creatinine [Mass/Vol] 1.0 mg/dL Normal 0.5 - 1.3 mg/dL [facility] eGFR 79 mL/min/1.73 m2 Normal >=59mL/min /1 .73 m2 [facility] Glucose [Mass/Vol] 115 mg/dL Normal 55 - 199 mg/dL [facility] Potassium [Moles/Vol] 3.6 mmol/L Normal 3.5 - 5.3 mmol/L [facility] Sodium [Moles/Vol] 140 mmol/L Normal 135 - 145 mmol/L [facility] Urea nitrogen [Mass/Vol] 25 mg/dL High 5 - 21 mg/dL [facility] Urea nitrogen/Creatinine [Mass ratio] 25 mg/mg High 10 - 20 [facility] HEMATOLOGYOrdered By: SYSTEM SYSTEM on 02-18-2024 Basophils/100 WBC (Bld) 0.7 % Normal 0.0 - 2.0 % [facility]e Basophils/Leukocytes Auto (Bld) [Pure # fraction] 0.0 E9/L Normal 0.0 - 0.2 E9/L [facility] Eosinophils (Bld) [#/Vol] 0.1 E9/L Normal 0.0 - 0.5 E9/L [facility] Eosinophils/100 WBC (Bld) 1.2 % Normal 0.0 - 8.0 % [facility] Erythrocyte distribution width (RBC) [Ratio] 13.7 % Normal 10.9 - 14.2 % [facility] Hematocrit (Bld) [Volume fraction] 47.7 % Normal 37.7 - 49.0 % [facility] Hemoglobin (Bld) [Mass/Vol] 16.3 g/dL Normal 13.5 - 17.5 gm/dL [facility] Lymphocytes (Bld) [#/Vol] 1.3 E9/L Normal 1.0 - 4.0 E9/L [facility] Lymphocytes/100 WBC (Bld) 20.2 % Normal 14.0 - 50.0 % [facility] MCH (RBC) [Entitic mass] 32.1 pg Normal 27.0 - 34.0 pg [facility]e MCHC (RBC) [Mass/Vol] 34.0 g/dL Normal 31.4 - 36.0 gm/dL [facility] MCV (RBC) [Entitic vol] 94.2 fL Normal 80.0 - 100.0 fL [facility] Monocytes (Bld) [#/Vol] 0.7 E9/L Normal 0.2 - 1.0 E9/L [facility] Monocytes/100 WBC (Bld) 10.5 % Normal 4.0 - 14.0 % [facility] Neutrophils (Bld) [#/Vol] 4.2 E9/L Normal 2.0 - 7.5 E9/L [facility] Neutrophils/100 WBC (Bld) 67.4 % Normal 36.0 - 75.0 % [facility] Platelet mean volume (Bld) [Entitic vol] 8.7 fL Normal 6.4 - 10.8 fL [facility] Platelets (Bld) [#/Vol] 176.0 E9/L Normal 150.0 - 500.0 E9/L [facility] RBC (Bld) [#/Vol] 5.1 E12/L Normal 4.3 - 5.9 E12/L [facility] WBC corrected for nucl RBC Auto (Bld) [#/Vol] 6.2 E9/L Normal 4.0 - 11.0 E9/L [facility] UA with Cult Rflxon 02-18-20 24 Bilirubin Ql (U) Negative Normal Negative [facility] Comment on above: Performed By: #### 4 [id number] #### [facility] [address] [place] [address] Clarity (U) Clear Normal Clear [facility] Comment on above: Performed By: #### 4 [id number] #### [facility] [address] [place] [address] Color (U) Light-Yellow Normal Yellow [facility] Comment on above: Result Comment: Micr oscopic readings are only performed on those samples that meet specific criteria set forth by [facility]. Performed By: #### 4 [id number] #### [facility] [address] [place] [address] Glucose Ql (U) Negative Normal Negative [facility] Comment on above: Performed By: #### 4 [id number] #### [facility] [address] [place] [address] Hemoglobin Auto test strip (U) [Mass/Vol] Trace Abnormal Negative [facility] Comment on above: Performed By: #### 4 [id number] #### [facility] [address] [place] [address] Ketones Auto test strip Ql (U) Negative Normal Negative [facility] Comment on above: Performed By: #### 4 [id number] #### [facility] [address] [place] [address] Leukocyte esterase Auto test strip Ql (U) Negative Normal Negative [facility] Comment on above: Performed By: #### 4 [id number] #### [facility] [address] [place] [address] Nitrite Auto test strip Ql (U) Negative Normal Negative [facility] Comment on above: Performed By: #### 4 [id number] #### [facility] [address] [place] [address] pH (U) 5.0 [pH] Invalid Interpretation Code 5.0-9.0 [facility] Comment on above: Performed By: #### 4 [id number] #### [facility] [address] [place] [address] Protein Ql (U) Negative Normal Negative [facility] Comment on above: Performed By: #### 4 [id number] #### [facility] [address] [place] [address] Specific gravity (U) [Rel density] 1.023 Invalid Interpretation Code 1.005-1.030 [facility] Comment on above: Performed By: #### 4 [id number] #### [facility] [address] [place] [address] Urobilinogen (U) [Mass/Vol] Negative Normal Negative [facility] Comment on above: Performed By: #### 4 [id number] #### [facility] [address] [place] [address] Type of Urine collection method Clean Catch Normal [facility] Comment on above: Performed By: #### 4 [id number] #### [facility] [address] [place] [address] URINALYSISOrdered By: SYSTEM SYSTEM on 02-18-2024 Bilirubin Ql (U) Negative Normal Negativemg/ d L [facility]A Auto SS Clarity (U) Clear (02/18/24 10:07 AM) Normal Clear [facility] UA Auto SS Color (U) Light-Yellow 1 (02/18/24 10:07 AM) Normal Yellow [facility] UA Auto SS Comment on above: Interpretive Data: M icroscopic readings are only performed on those samples that meet specific criteria set forth by [facility]. Glucose Ql (U) Negative Normal Negativemg/d L [facility] UA Auto SS Hemoglobin Auto test strip (U) [Mass/Vol] Trace mg/dL Invalid Interpretation Code Negativemg/d L [facility] UA Auto SS Ketones Auto test strip Ql (U) Negative Normal Negativemg/d L [facility] UA Auto SS Leukocyte esterase Auto test strip Ql (U) Negative Normal NegativeLeu/ uL [facility] UA Auto SS Nitrite Auto test strip Ql (U) Negative Normal Negativemg/d L [facility] UA Auto SS pH (U) 5.0 *NA* (02/18/24 10:07 AM) Invalid Interpretation Code 5.0 - 9.0 [facility] UA Auto SS Protein Ql (U) Negative Normal Negativemg/d L [facility] UA Auto SS Specific gravity (U) [Rel density] 1.023 *NA* (02/18/24 10:07 AM) Invalid Interpretation Code 1.005 - 1.030 [facility] UA Auto SS Urobilinogen (U) [Mass/Vol] Negative Normal Negativemg/d L [facility] UA Auto SS URINALYSISOrdered By: Katie Uriostegui on 02-18-2024 UA Spec Desc Clean Catch (02/18/24 10:07 AM) Normal [facility] UA Auto SS eGFRon 02-18-2024 eGFR 79 mL/min/1.73 m2 Normal >=59 [facility] Comment on above: Order Comment: Order added by Discern Expert. Performed By: #### 1 [id number] #### [facility] [address] [place] [address] Lab Reportson 12-04-2023 Lab Reports [id number] 0TIFF Normal [facility] Patient Educationon 11-02-19 Patient Education Urology Erectile [...] these instructions at home: Medicines ? Take uxdw-vlq-vrknrga and prescription medicines only as told by [...] include cig (more content not included)... Normal [facility] Urology Office/Clinic Noteon 11-02-2023 Urology Office/Clinic Note Chief Complaint 1yr PSA & KUB HPI Staff 16 month f/u with PSA and KUB. (pt went to [place] for 3m) Dx: kidney stone and BPH [...] and history for this patient from Dr. Camacho. I have reviewed and verified the staff [...] Follow-up With When Contact Information DOUG NATHAN, Luep Phan, URL [address] [place] [address]- Additional Instructions: 7 mos w/ PSA Patient Education Erectile Dysfunction I, Adriana Crane, personally scribed for Dr. Camacho on 11/02/2023 13:18:58. . Documentation recorded by the scribe, Adriana Crane, accurately reflects the services(s) I performed and decisions made by me. Authenticated by Dr. Camacho on 11/02/2023 13:20:13. Problem List/Past Medical History [...] (Nausea present) (more content not included)... Normal [facility] Comment on above: Result Comment: Elec tronically Signed By: Lupe CAMACHO MD\.br\Date and Time Signed: 11/02/23 13:20 EDT\.br\Electronically Co-Signed By: Adriana Crane.br\Date and Time Co-Signed: 11/02/23 13:19 EDT Lab Reportson 10-30-2023 Lab Reports [id number] 0TIFF Normal [facility] RAD - MISCon 10-30-2023 RAD - MISC [id number]#1.0 0TIFF Normal [facility] No Panel Informationon 10-28 Prostate Specific Antigen Total 3.70 ng/mL <=4.00 [facility] US carotid doppler BIon 12- US carotid doppler BI [facility] [place] [address] Ultrasound Report Signed Patient: Gerry Lay MR#: [id number] : 1950 Acct:[id number] Age/Sex: 72 / M ADM Date: 06/21/23 Loc: Room: Type: [facility] Attending Dr: Sukhdeep Crockett DO Ordering [...] Mayo Sheikh M.D.06/22/2023 3:21 PM Dictation Location: [place] [address] Tech: Yen Estrella Transcribed By: ESE 06/22/23 1521 Dictated By: Mayo Sheikh MD 06/22/23 1520 Signed By: 06/22/23 1521 Normal [facility] ISTAT XRay CREon 06-21-2023 Creatinine [Mass/Vol] 1.3 mg/dL Normal 0.6-1.3 [facility] Comment on above: Result Comment: ER/E SD physician is notified/shown all ISTAT results. Critical values may be confirmed by laboratory testing if deemed necessary by ER attending doctor. Performed By: #### I SCRE #### [facility] [address] [place] [address] ISTAT GFR 58.368 Normal [facility] Comment on above: Result Comment: PERF ORMED BY: [address] [place] [address] PATHOLOGIST [employer] REPRESENTATIVE LOGAN SERNA M.D. Performed By: #### I SCRE #### [address] MR head/brain wo/w conon MR head/brain wo/w con [facility] Main [place] [address] [place] [address] MRI Report Signed Patient: Gerry Lay MR#: [id number] : 1950 Acct:[id number] Age/Sex: 72 / M ADM Date: 06/21/23 Loc: MR Room: Type: [facility] Attending Dr: Sukhdeep Crockett DO Copies [...] Eloy Barnard M.D.06/21/2023 5:08 PM Dictation Location: [place] [address] Transcribed By: [facility] 06/21/231707 Dictated By: Eloy Barnard II, MD 06/21/23 1646 Signed By: 06/21/231707 [facility] RAD - MIS [id number] 0TIFF Normal [facility] Lab Reportson 05-28-2023 Lab Reports [id number] 0TIFF [facility] Physician Orderon 05-07-2023 Physician Order [id number] TIFF Normal [facility] Physician Order [id number] 0TIFF Normal [facility] US CAROTID ART BILon 06-22- 022 US CAROTID ART LOUISE EXAMINATION: US [...] AIXA DURANT Date: 2022-06-21 23:19 Normal [facility] CBC AUTO DIFFon 06-21-2022 BASO # 0.1 103/ul Normal 0.0-0.1 [facility] Comment on above: Performed By: #### C BC ####[facility] [address] [place] [address]Dr. Giacomo Chambers Basophils/100 WBC (Bld) 0.9 % Normal 0.2-2.0 [facility] Comment on above: Performed By: #### C BC ####[facility] [address] [place], [place] [address]Dr. Giacomo Chambers EO # 0.2 103/ul Normal 0.0-0.7 [facility] Comment on above: Performed By: #### C BC ####[facility] [address] [place], [place] [address]Dr. Giacomo Chambers Eosinophils/100 WBC (Bld) 3.0 % Normal 0.9-7.0 [facility] Comment on above: Performed By: #### C BC ####[facility] [address] [place], [place] [address]Dr. Giacomo Chambers Erythrocyte distribution width (RBC) [Ratio] 12.7 % Normal 11.0-15.0 [facility] Comment on above: Performed By: #### C BC ####[facility] [address] [place], [place] [address]Dr. Giacomo Chambers Hematocrit (Bld) [Volume fraction] 48.4 % Normal 42.0-54.0 [facility] Comment on above: Performed By: #### C BC ####[facility] [address] [place], [place] [address]Dr. Giacomo Chambers Hemoglobin (Bld) [Mass/Vol] 16.1 g/dL Normal 14.0-18.0 [facility] Comment on above: Performed By: #### C BC ####[facility] [address] [place], [place] [address]Dr. Giacomo Chambers IG # 0.01 10e3/ul Normal 0.00-0.03 [facility] Comment on above: Performed By: #### C BC ####[facility] [address] [place] [address]Dr. Giacomo Chambers IG % 0.2 % Normal 0.0-0.5 [facility] Comment on above: Performed By: #### C BC ####[facility] [address] [place] [address]Dr. Giacomo Chambers LYMPH # 2.1 103/ul Normal 1.2-3.8 [facility] Comment on above: Performed By: #### C BC ####[facility] [address] [place] [address]Dr. Giacomo Chambers Lymphocytes/100 WBC (Bld) 36.7 % Normal 20.5-60.0 [facility] Comment on above: Performed By: #### C BC ####[facility] [address] [place], [place] [address]Dr. Giacomo Chambers MANUAL DIFF REQ NO Normal [facility] Comment on above: Performed By: #### C BC ####[facility] [address] [place] [address]Dr. Zinastella Chambers MCH (RBC) [Entitic mass] 30.6 pg Normal 25.9-34.0 [facility] Comment on above: Performed By: #### C BC ####[facility] [address] [place] [address]Dr. Giacomo Chambers MCHC (RBC) [Mass/Vol] 33.3 g/dL Normal 29.9-35.2 [facility] Comment on above: Performed By: #### C BC ####[facility] [address] [place] [address]Dr. Giacomo Chambers MCV (RBC) [Entitic vol] 91.8 fL Normal 80.0-94.0 [facility] Comment on above: Performed By: #### C BC ####[facility] [address] [place], [place] [address]Dr. Giacomo Chambers MONO # 0.7 103/ul Normal 0.3-0.8 [facility] Comment on above: Performed By: #### C BC ####[facility] [address] [place] [address]Dr. Giacomo Chambers Monocytes/100 WBC (Bld) 12.1 % Critically high 1.7-12.0 [facility] Comment on above: Performed By: #### C BC ####[facility] [address] [place] [address]Dr. Giacomo Chambers NEUT # 2.6 103/ul Normal 1.4-6.5 [facility] Comment on above: Performed By: #### C BC ####[facility] [address] [place] [address]Dr. Giacomo Chambers Neutrophils/100 WBC (Bld) 47.1 % Normal 43.0-75.0 [facility] Comment on above: Performed By: #### C BC ####[facility] [address] [place] [address]Dr. Giacomo Chambers Platelet mean volume (Bld) [Entitic vol] 10.0 fL Normal 9.5-13.5 [facility] Comment on above: Performed By: #### C BC ####[facility] [address] [place] [address]Dr. Giacomo Chambers PLT 188 103/ul Normal 150-450 [facility] Comment on above: Performed By: #### C BC ####[facility] [address] [place] [address]Dr. Giacomo Chambers RBC 5.27 106/ul Normal 4.70-6.10 [facility] Comment on above: Performed By: #### C BC ####[facility] [address] [place] [address]Dr. Giacomo Chambers WBC 5.6 103/ul Normal 4.0-11.0 [facility] Comment on above: Performed By: #### C BC ####[facility] [address] [place], [place] [address]Dr. Giacomo Chambers FREE T4on 06-21-2022 Free T4 [Mass/Vol] 1.19 ng/dL Normal 0.76-1.46 [facility] Comment on above: Performed By: #### F T4 ####[facility] [address] [place], [place] [address]De. Giacomo Chambers GLYCOHEMOGLOBIN A1Con 2021 ADA RECOMMENDATION SEE BELOW Normal [facility] Comment on above: Result Comment: ADA RECOMMENDED LIMIT 4.0 - 6.0 ADA THERAPEUTIC TARGET < 7.0 ACTION SUGGESTED > 7.0 Performed By: #### A 1C ####[facility] [address] [place] [address]Dr. Giacomo Chambers Glucose [Mass/Vol] 134 mg/dL Normal [facility] Comment on above: Performed By: #### A 1C ####[facility] [address] [place] [address]Dr. Giacomo Chambers HbA1c (Bld) [Mass fraction] 6.3 % Critically high 4.5-6.2 [facility] Comment on above: Performed By: #### A 1C ####[facility] [address] [place] [address]DrCamila Chambers LIPID PROFILEon 06-21-2022 CHOL-HDL RATIO NORM SEE BELOW Normal [facility] Comment on above: Result Comment: 3.3 - 4.4 LOW RISK 4.4 - 7.1 AVERAGE RISK 7.1 - 11.0 MODERATE RISK >11.0 HIGH RISK Performed By: #### L IPID, CMP, TSH #### [facility] [address] [place] [address] [address] Giacomo Chambers Cholesterol [Mass/Vol] 162 mg/dL Normal <=200 [facility] Comment on above: Performed By: #### L IPID, CMP, TSH #### [facility] [address] [place] [address] [address] Giacomo Chambers Cholesterol in HDL [Mass/Vol] 55 mg/dL Normal 40-60 [facility] Comment on above: Performed By: #### L IPID, CMP, TSH #### [facility] [address] [place] [address] [address] Giacomo Chambers Cholesterol in LDL [Mass/Vol] 77.6 mg/dL Normal [facility] Comment on above: Performed By: #### L IPID, CMP, TSH #### [facility] [address] [place] [address] [address] Giacomo Chambers Cholesterol.total/Cho lesterol in HDL [Mass ratio] 2.9 {ratio} Normal [facility] Comment on above: Performed By: #### L IPID, CMP, TSH #### [facility] [address] [place] [address] [address] Giacomo Chambers HDL NORMAL > or = 60 mg/dl - LO W CARDIOVASCULAR RISK <40 mg/dl - HIGH CARDIOVASCULAR RISK Normal [facility] Comment on above: Performed By: #### L IPID, CMP, TSH #### [facility] [address] [place] [address] [address] Giacomo Chambers LDL CALC NORMAL SEE BELOW Normal [facility] Comment on above: Result Comment: <100 mg/dl OPTIMAL 100 - 129 mg/dl NEAR OR ABOVE OPTIMAL 130 - 159 mg/dl BORDERLINE HIGH 160 - 189 mg/dl HIGH >190 mg/dl VERY HIGH Performed By: #### L IPID, CMP, TSH #### [facility] [address] [address] [address] Giacomo Chambers Triglyceride [Mass/Vol] 147 mg/dL Normal <=150 [facility] Comment on above: Performed By: #### L IPID, CMP, TSH #### [facility] [address] [address] [address] Giacomo Chambers VLDL CALC 29.4 mg/dL Normal [facility] Comment on above: Performed By: #### L IPID, CMP, TSH #### [facility] [address] [address] [address] Giacomo Chambers MICROALBUMIN, RAND URon 06-08 mALB 1.6 mg/L Normal <=30.0 [facility] Comment on above: Performed By: #### M ALBR #### [facility] [address] [address] [address] Giacomo Chambers PROF 14(COMP METB)on 022 Albumin [Mass/Vol] 4.0 g/dL Normal 3.4-5.0 [facility] Comment on above: Performed By: #### L IPID, CMP, TSH #### [facility] [address] [address] [address] Giacomo Chambers Albumin/Globulin [Mass ratio] 1.1 {ratio} Normal [facility] Comment on above: Performed By: #### L IPID, CMP, TSH #### [facility] [address] [address] [address] Giacomo Chambers ALP [Catalytic activity/Vol] 67 U/L Normal 46-116 [facility] Comment on above: Performed By: #### L IPID, CMP, TSH #### [facility] [address] [address] [address] Giacomo Chambers ALT [Catalytic activity/Vol] 34 U/L Normal 16-63 [facility] Comment on above: Performed By: #### L IPID, CMP, TSH #### [facility] [address] [place] [address] Dr. Giacomo Chambers Anion gap [Moles/Vol] 11.0 mmol/L Normal [facility] Comment on above: Performed By: #### L IPID, CMP, TSH #### [facility] [address] [place] [address] Dr. Giacomo Chambers AST [Catalytic activity/Vol] 28 U/L Normal 15-37 [facility] Comment on above: Performed By: #### L IPID, CMP, TSH #### [facility] [address] [address] [address] Giacomo Chambers Bilirubin [Mass/Vol] 0.9 mg/dL Normal 0.2-1.0 [facility] Comment on above: Performed By: #### L IPID, CMP, TSH #### [facility] [address] [place] [address] Dr. Giacomo Chambers Calcium [Mass/Vol] 9.4 mg/dL Normal 8.5-10.1 [facility] Comment on above: Performed By: #### L IPID, CMP, TSH #### [facility] [address] [place] [address] Dr. Giacomo Chambers Chloride [Moles/Vol] 102 mmol/L Normal 98-107 [facility] Comment on above: Performed By: #### L IPID, CMP, TSH #### [facility] [address] [address] [address] Giacomo Chambers CO2 [Moles/Vol] 31.2 mmol/L Normal 21.0-32.0 [facility] Comment on above: Performed By: #### L IPID, CMP, TSH #### [facility] [address] [address] [address] Giacomo Chambers Creatinine [Mass/Vol] 1.13 mg/dL Normal 0.70-1.30 [facility] Comment on above: Performed By: #### L IPID, CMP, TSH #### [facility] [address] [place] [address] Dr. Giacomo Chambers EGFR-AF FIJIAN >60 Normal >=60 [facility] Comment on above: Performed By: #### L IPID, CMP, TSH #### [facility] [address] [place] [address] Dr. Giacomo Chambers EGFR-NON AF FIJIAN >60 Normal >=60 [facility] Comment on above: Performed By: #### L IPID, CMP, TSH #### [facility] [address] [address] [address] Giacomo Chambers Globulin (S) [Mass/Vol] 3.5 g/dL Normal [facility] Comment on above: Performed By: #### L IPID, CMP, TSH #### [facility] [address] [address] [address] Giacomo Chambers Glucose [Mass/Vol] 121 mg/dL Critically high 74-106 [facility] Comment on above: Performed By: #### L IPID, CMP, TSH #### [facility] [address] [address] [address] Giacomo Chambers Potassium [Moles/Vol] 4.2 mmol/L Normal 3.5-5.1 [facility] Comment on above: Performed By: #### L IPID, CMP, TSH #### [facility] [address] [address] [address] Giacomo Chambers Protein [Mass/Vol] 7.5 g/dL Normal 6.4-8.2 [facility] Comment on above: Performed By: #### L IPID CMP, TSH #### [facility] [address] [address] [address] Giacomo Chambers Sodium [Moles/Vol] 140 mmol/L Normal 136-145 [facility] Comment on above: Performed By: #### L IPID, CMP, TSH #### [facility] [address] [address] [address] Giacomo Chambers Urea nitrogen [Mass/Vol] 23.0 mg/dL Critically high 7.0-18.0 [facility] Comment on above: Performed By: #### L IPID, CMP, TSH #### [facility] [address] [place] [address] Dr. Giacomo Chambers Urea nitrogen/Creatinine [Mass ratio] 20.4 mg/mg Normal [facility] Comment on above: Performed By: #### L IPID, CMP, TSH #### [facility] [address] [address] [address] Giacomo Chambers TSHon 06-21-2022 TSH 2.946 uIU/mL Normal 0.358-3.740 [facility] Comment on above: Performed By: #### L IPID CMP, TSH #### [facility] [address] [place] [address] Dr. Giacomo Chambers XR KUB 1 VIEWon [...] AIXA DURANT Date: 2022-05-03 22:01 Normal [facility] CBC AUTO DIFFon 12-07-2021 BASO # 0.1 103/ul Normal 0.0-0.1 [facility] Comment on above: Performed By: #### C BC #### [facility] [address] [place] [address] Dr. Giacmoo Chambers Basophils/100 WBC (Bld) 0.7 % Normal 0.2-2.0 [facility] Comment on above: Performed By: #### C BC #### [facility] [address] [place] [address] Dr. Giacomo Chambers EO # 0.2 103/ul Normal 0.0-0.7 [facility] Comment on above: Performed By: #### C BC #### [facility] [address] [place] [address] Dr. Giacomo Chambers Eosinophils/100 WBC (Bld) 2.7 % Normal 0.9-7.0 [facility] Comment on above: Performed By: #### C BC #### [facility] [address] [place] [address] Dr. Giacomo Chambers Erythrocyte distribution width (RBC) [Ratio] 12.4 % Normal 11.0-15.0 [facility] Comment on above: Performed By: #### C BC #### [facility] [address] [place] [address] Dr. Giacomo Chambers Hematocrit (Bld) [Volume fraction] 47.5 % Normal 42.0-54.0 [facility] Comment on above: Performed By: #### C BC #### [facility] [address] [place] [address] Dr. Giacomo Chambers Hemoglobin (Bld) [Mass/Vol] 15.5 g/dL Normal 14.0-18.0 [facility] Comment on above: Performed By: #### C BC #### [facility] [address] [place] [address] Dr. Giacomo Chambers IG # 0.02 10e3/ul Normal 0.00-0.03 [facility] Comment on above: Performed By: #### C BC #### [facility] [address] [place] [address] Dr. Giacomo Chambers IG % 0.3 % Normal 0.0-0.5 [facility] Comment on above: Performed By: #### C BC #### [facility] [address] [place] [address] Dr. Giacomo Chambers LYMPH # 2.1 103/ul Normal 1.2-3.8 [facility] Comment on above: Performed By: #### C BC #### [facility] [address] [place] [address] Dr. Giacomo Chambers Lymphocytes/100 WBC (Bld) 30.9 % Normal 20.5-60.0 [facility] Comment on above: Performed By: #### C BC #### [facility] [address] [place] [address] Dr. Giacomo Chambers MANUAL DIFF REQ NO Normal [facility] Comment on above: Performed By: #### C BC #### [facility] [address] [place] [address] Dr. Giacomo Chambers MCH (RBC) [Entitic mass] 31.6 pg Normal 25.9-34.0 [facility] Comment on above: Performed By: #### C BC #### [facility] [address] [place] [address] Dr. Giacomo Chambers MCHC (RBC) [Mass/Vol] 32.6 g/dL Normal 29.9-35.2 [facility] Comment on above: Performed By: #### C BC #### [facility] [address] [place] [address] Dr. Giacomo Chambers MCV (RBC) [Entitic vol] 96.7 fL Critically high 80.0-94.0 [facility] Comment on above: Performed By: #### C BC #### [facility] [address] [place] [address] Dr. Giacomo Chambers MONO # 0.7 103/ul Normal 0.3-0.8 [facility] Comment on above: Performed By: #### C BC #### [facility] [address] [place] [address] Dr. Giacomo Chambers Monocytes/100 WBC (Bld) 10.5 % Normal 1.7-12.0 [facility] Comment on above: Performed By: #### C BC #### [facility] [address] [place] [address] Dr. Giacomo Chambers NEUT # 3.7 103/ul Normal 1.4-6.5 [facility] Comment on above: Performed By: #### C BC #### [facility] [address] [place] [address] Dr. Giacomo Chambers Neutrophils/100 WBC (Bld) 54.9 % Normal 43.0-75.0 [facility] Comment on above: Performed By: #### C BC #### [facility] [address] [place] [address] Dr. Giacomo Chambers Platelet mean volume (Bld) [Entitic vol] 9.9 fL Normal 9.5-13.5 [facility] Comment on above: Performed By: #### C BC #### [facility] [address] [place] [address] Dr. Giacomo Chambers PLT 208 103/ul Normal 150-450 [facility] Comment on above: Performed By: #### C BC #### [facility] [address] [place] [address] Dr. Giacomo Chambers RBC 4.91 106/ul Normal 4.70-6.10 [facility] Comment on above: Performed By: #### C BC #### [facility] [address] [place] [address] Dr. Giacomo Chambers WBC 6.7 103/ul Normal 4.0-11.0 [facility] Comment on above: Performed By: #### C BC #### [facility] [address] [place] [address] Dr. Giacomo Chmabers FREE T4on 12-07-2021 Free T4 [Mass/Vol] 1.12 ng/dL Normal 0.76-1.46 [facility] Comment on above: Performed By: #### F T4 #### [facility] [address] [place] [address] Dr. Giacomo Chambers PROF CHEM 8 (BAS METB)on Anion gap [Moles/Vol] 13.0 mmol/L Normal [facility] Comment on above: Performed By: #### B MP, TSH #### [facility] [address] [place] [address] Dr. Giacomo Chambers Calcium [Mass/Vol] 9.5 mg/dL Normal 8.5-10.1 [facility] Comment on above: Performed By: #### B MP, TSH #### [facility] [address] [place] [address] Dr. Gaicomo Chambers Chloride [Moles/Vol] 104 mmol/L Normal 98-107 [facility] Comment on above: Performed By: #### B SIXTO, TSH #### [facility] [address] [place] [address] Dr. Giacomo Chambers CO2 [Moles/Vol] 32.0 mmol/L Normal 21.0-32.0 [facility] Comment on above: Performed By: #### B SIXTO, TSH #### [facility] [address] [place] [address] Dr. Giacomo Chambers Creatinine [Mass/Vol] 1.06 mg/dL Normal 0.70-1.30 [facility] Comment on above: Performed By: #### B SIXTO, TSH #### [facility] [address] [place] [address] Dr. Giacomo Chambers EGFR-AF FIJIAN 60 mL/min/1.73m2 Normal >=60 [facility] Comment on above: Performed By: #### B SIXTO, TSH #### [facility] [address] [place] [address] Dr. Giacomo Chambers EGFR-NON AF FIJIAN 60 mL/min/1.73m2 Normal >=60 [facility] Comment on above: Performed By: #### B MP, TSH #### [facility] [address] [place] [address] Dr. Giacomo Chambers Glucose [Mass/Vol] 94 mg/dL Normal 74-106 [facility] Comment on above: Performed By: #### B SIXTO, TSH #### [facility] [address] [place] [address] Dr. Giacomo Chambers Potassium [Moles/Vol] 4.0 mmol/L Normal 3.5-5.1 [facility] Comment on above: Performed By: #### B MP, TSH #### [facility] [address] [place] [address] Dr. Giacomo Chambers Sodium [Moles/Vol] 145 mmol/L Normal 136-145 [facility] Comment on above: Performed By: #### B MP, TSH #### [facility] [address] [place] [address] Dr. Giacomo Chambers Urea nitrogen [Mass/Vol] 17.0 mg/dL Normal 7.0-18.0 [facility] Comment on above: Performed By: #### B MP, TSH #### [facility] [address] [place] [address] Dr. Giacomo Chambers Urea nitrogen/Creatinine [Mass ratio] 16.0 mg/mg Normal [facility] Comment on above: Performed By: #### B MP, TSH #### [facility] [address] [place] [address] Dr. Giacomo Chambers TSHon 12-07-2021 TSH 4.398 uIU/mL Critically high 0.358-3.740 [facility] Comment on above: Performed By: #### B MP, TSH #### [facility] [address] [place] [address] Dr. Giacomo Chambers TSH RANGE SEE BELOW Normal [facility] Comment on above: Result Comment: <0.3 4 UIU/ml HYPERTHYROID 0.34-5.60 UIU/ml EUTHYROID >5.60 UIU/ml HYPOTHYROID Performed By: #### B MP, TSH #### [facility] [address] [place] [address] Dr. Giacomo Chambers [facility]06 SARS-CoV-2 (COVID-19) RNA RADHA+probe Ql (Unsp spec) Detected Critically abnormal NOT DETECTED [facility] Comment on above: Result Comment: This test is not yet approved or cleared by the [place] FDA. When there are no FDA-approved or cleared tests available, and other criteria are met, FDA can make tests available under an emergency access mechanism called an Emergency Use Authorization (EUA). The EUA for this test is supported by the Director Of Marketing Operations of Health and Human Service's (HHS's) declaration [...] be used). Performed By: #### C VDTBH ####[facility] [address] [place], [place] [address]Dr. Giacomo Chambers CALCULI, URINARYon 2 2,8 Dihydroxyadenine Normal [facility] Comment on above: Performed By: #### C ALCULI ####[facility] [address] [place], [place] [address]Dr. Giacomo Chambers Ammonium Acid Urate Normal [facility] Comment on above: Performed By: #### C ALCULI ####[facility] [address] [place], [place] [address]Dr. Giacomo Chambers Bilirubin Ql (U) Normal [facility] Comment on above: Performed By: #### C ALCULI ####[facility] [address] [place], [place] [address]Dr. Giacomo Chambers Ca Oxalate Dihydrate Normal [facility] Comment on above: Performed By: #### C ALCULI ####[facility] [address] [place], [place] [address]Dr. Giacomo Chambers CaHPO4 (Brushite) Normal [facility] Comment on above: Performed By: #### C ALCULI ####[facility] [address] [place], [place] [address]Dr. Giacomo Chambers Calcium Bilirubinate Normal [facility] Comment on above: Performed By: #### C ALCULI ####[facility] [address] [place], [place] [address]Dr. Giacomo Chambers Calcium Carbonate Normal [facility] Comment on above: Performed By: #### C ALCULI ####[facility] [address] [address]Dr. Giacomo Chambers Calcium Oxalate Monohydrate 100 % Normal [facility] Comment on above: Performed By: #### C ALCULI ####[facility] [address] [address]Dr. Giacomo Chambers Calcium Palmitate Normal [facility] Comment on above: Performed By: #### C ALCULI ####[facility] [address] [address]Dr. Giacomo Chambers Calcium Phosphate Normal [facility] Comment on above: Performed By: #### C ALCULI ####[facility] [address] [place], [place] [address]Dr. Giacomo Chambers Calcium Stearate Normal [facility] Comment on above: Performed By: #### C ALCULI ####[facility] [address] [place], [place] [address]Dr. Giacomo Chambers Carbonate Apatite Normal [facility] Comment on above: Performed By: #### C ALCULI ####[facility] [address] [place], [place] [address]Dr. Giacomo Chambers Cellular Material Normal [facility] Comment on above: Performed By: #### C ALCULI ####[facility] [address] [address]Dr. Giacomo Chambers Cholesterol Normal [facility] Comment on above: Performed By: #### C ALCULI ####[facility] [address] [address]Dr. Giacomo Chambers Color (U) Brown Normal [facility] Comment on above: Performed By: #### C ALCULI ####[facility] [address] [place], [place] [address]Dr. Giacomo Chambers Comment [place] [facility] Comment on above: Performed By: #### C ALCULI ####[facility] [address] [address]Dr. Giacomo Chambers Comment Comment Normal [facility] Comment on above: Result Comment: Calc ulus received in liquid. Wet calculi must be dried before analysis, which delays reporting of results. Leaving calculi in liquid (such as water, saline, blood, urine) may lead to changes in composition. Performed By: #### C ALCULI ####[facility] [address] [address]Dr. Giacomo Chambers Comment: Comment Normal [facility] Comment on above: Result Comment: Stanislav kenny questions regarding Calculi Analysis contact [facility] at: [phone]. Performed By: #### C ALCULI ####[facility] [address] [address]Dr. Giacomo Chambers Composition Comment Normal [facility] Comment on above: Result Comment: Perc entage (Represents the % composition) Performed By: #### C ALCULI ####[facility] [address] [place], [place] [address]Dr. Giacomo Chambers Cystine Normal [facility] Comment on above: Performed By: #### C ALCULI ####[facility] [address] [place], [place] [address]Dr. Giacomo Chambers Disclaimer: Comment Normal [facility] Comment on above: Result Comment: This test was developed and its performance characteristics determined by [facility]. It has not been cleared or approved by the Food and Drug Administration. Performed By: #### C ALCULI ####[facility] [address] [place], [place] [address]Dr. Giacomo Chambers Dried Blood Normal [facility] Comment on above: Performed By: #### C ALCULI ####[facility] [address] [place], [place] [address]Dr. Giacomo Chambers Drug or Metabolite Normal [facility] Comment on above: Performed By: #### C ALCULI ####[facility] [address] [place], [place] [address]Dr. Giacomo Chambers Hydroxyapatite Normal [facility] Comment on above: Performed By: #### C ALCULI ####[facility] [address] [place], [place] [address]Dr. Giacomo Chambers Mg NH4 PO4 (Struvite) Normal [facility] Comment on above: Performed By: #### C ALCULI ####[facility] [address] [address]Dr. Giacomo Chambers MgHPO4 (Newberyite) Normal [facility] Comment on above: Performed By: #### C ALCULI ####[facility] [address] [address]Dr. Giacomo Chambers Other component(s) Normal [facility] Comment on above: Performed By: #### C ALCULI ####[facility] [address] [address]Dr. Giacomo Chambers PDF . Normal [facility] Comment on above: Performed By: #### C ALCULI ####[facility] [address] [place], [place] [address]Dr. Giacomo Chambers Photo Comment [facility] Comment on above: Result Comment: Phot ograph will follow under a separate cover Performed By: #### C ALCULI ####[facility] [address] [place], [place] [address]Dr. Giacomo Chambers Please note: Comment [facility] Comment on above: Result Comment: Calc derek report will follow via computer, mail or health concierge delivery. Performed By: #### C ALCULI ####[facility] [address] [place], [place] [address]Dr. Giacomo Chambers Size 4x3 [facility] Comment on above: Result Comment: Mult iple pieces received. Dimensions of the largest piece reported. Performed By: #### C ALCULI ####[facility] [address] [place], [place] [address]Dr. Giacomo Chambers Sodium Acid Urate Normal [facility] Comment on above: Performed By: #### C ALCULI ####[facility] [address] [place], [place] [address]Dr. Giacomo Chambers Source Comment Normal [facility] Comment on above: Result Comment: Not provided Performed By: #### C ALCULI ####[facility] [address] [place], [place] [address]DrCamila Chambers Triamterene Normal [facility] Comment on above: Performed By: #### C ALCULI ####[facility] [address] [address]Dr. Giacomo Chambers Uric Acid Normal [facility] Comment on above: Performed By: #### C ALCULI ####[facility] [address] [address]Dr. Giacomo Chambers Uric Acid Dihydrate Normal [facility] Comment on above: Performed By: #### C ALCULI ####[facility] [address] [address]Dr. Giacomo Chambers Weight 82 mg Normal [facility] Comment on above: Performed By: #### C ALCULI ####[facility] [address] [place], [place] [address]Dr. Giacomo Chambers Xanthine Normal [facility] Comment on above: Performed By: #### C ALCULI ####[facility] [address] [place], [place] [address]Dr. Giacomo Chambers PROF CHEM 8 (BAS METB)on Anion gap [Moles/Vol] 13.0 mmol/L Normal [facility] Comment on above: Performed By: #### B MP ####[facility] [address] [place], [place] [address]Dr. Giacomo Chambers Calcium [Mass/Vol] 8.7 mg/dL Normal 8.5-10.1 [facility] Comment on above: Performed By: #### B MP ####[facility] [address] [address]Dr. Giacomo Chambers Chloride [Moles/Vol] 101 mmol/L Normal 98-107 [facility] Comment on above: Performed By: #### B MP ####[facility] [address] [place], [place] [address]Dr. Giacomo Chambers CO2 [Moles/Vol] 28.9 mmol/L Normal 21.0-32.0 [facility] Comment on above: Performed By: #### B MP ####[facility] [address] [place], [place] [address]Dr. Giacomo Chambers Creatinine [Mass/Vol] 1.04 mg/dL Normal 0.70-1.30 [facility] Comment on above: Performed By: #### B MP ####[facility] [address] [address]Dr. Zinastella Reyes EGFR-AF FIJIAN >60 Normal >=60 [facility] Comment on above: Performed By: #### B MP ####[facility] [address] [address]Dr. Giacomo Chambers EGFR-NON AF FIJIAN >60 Normal >=60 [facility] Comment on above: Performed By: #### B MP ####[facility] [id number] [place], [place] [address]Dr. Giacomo Chambers Glucose [Mass/Vol] 111 mg/dL Critically high 74-106 [facility] Comment on above: Performed By: #### B MP ####[facility] [address] [place], [place] [address]Dr. Giacomo Chambers Potassium [Moles/Vol] 3.9 mmol/L Normal 3.5-5.1 [facility] Comment on above: Performed By: #### B MP ####[facility] [id number] [place], [place] [address]Dr. Giacomo Chambers Sodium [Moles/Vol] 139 mmol/L Normal 136-145 [facility] Comment on above: Performed By: #### B MP ####[facility] [address] [place], [place] [address]Dr. Giacomo Chambers Urea nitrogen [Mass/Vol] 18.0 mg/dL Normal 7.0-18.0 [facility] Comment on above: Performed By: #### B MP ####[facility] [address] [place], [place] [address]Dr. Giacomo Chambers Urea nitrogen/Creatinine [Mass ratio] 17.3 mg/mg Normal [facility] Comment on above: Performed By: #### B MP ####[facility] [address] [place], [place] [address]Dr. Giacomo Chambers XR KUB 1 VIEWon 11-11-2021 [...] by: RADHA PATEL Date: 2021-11-11 16:26 Normal [facility] Vital Signs Date Time Vital Sign Value Performing Clinician Facility 04-16-2024 14:36-0400 Body height 179.1 cm Bunny Pocos DO Work Phone: [facility] 04-16-2024 14:36-0400 Body mass index (BMI) [Ratio] 34.94 kg/m2 Bunny Pocos DO Work Phone: [facility] 04-16-2024 14:36-0400 Body weight 112.04 kg Bunny Pocos DO Work Phone: [facility] 03-18-2024 14:35-0400 Heart rate 78 /min Bunny Pocos [facility] 03-18-2024 14:35-0400 SaO2% (BldA) [Mass fraction] 93 % Bunny Pocos [facility] 03-18-2024 14:34-0400 Diastolic blood pressure 73 mm[Hg] Bunny Pocos [facility] 03-18-2024 14:34-0400 Mean blood pressure 91 mm[Hg] Bunny Pocos [facility] 03-18-2024 14:34-0400 Systolic blood pressure 128 mm[Hg] Bunny Pocos [facility] 03-18-2024 12:59-0400 Heart rate 70 /min Bunny Pocos [facility] 03-18-2024 12:59-0400 SaO2% (BldA) [Mass fraction] 96 % Bunny Pocos [facility] 03-18-2024 12:59-0400 Respiratory rate 18 /min Bunny Pocos [facility] 03-18-2024 12:58-0400 Diastolic blood pressure 75 mm[Hg] Bunny Pocos [facility] 03-18-2024 12:58-0400 Mean blood pressure 95 mm[Hg] Bunny Pocos [facility] 03-18-2024 12:58-0400 Systolic blood pressure 134 mm[Hg] Bunny Pocos [facility] 03-18-2024 11:43-0400 Heart rate 70 /min Bunny Pocos [facility] 03-18-2024 11:43-0400 SaO2% (BldA) [Mass fraction] 94 % Bunny Pocos [facility] 03-18-2024 11:41-0400 Respiratory rate 16 /min Bunny Pocos [facility] 03-18-2024 11:39-0400 Blood Pressure Location Bunny Pocos [facility] 03-18-2024 11:39-0400 Diastolic blood pressure 81 mm[Hg] Bunny Pocos [facility] 03-18-2024 11:39-0400 Mean blood pressure 97 mm[Hg] Bunny Pocos [facility] 03-18-2024 11:39-0400 Systolic blood pressure 129 mm[Hg] Bunny Pocos [facility] 03-18-2024 11:30-0400 Body temperature 96.98 [degF] Bunny Pocos [facility] 03-18-2024 11:30-0400 Respiratory rate 18 /min Bunny Pocos [facility] 03-18-2024 11:15-0400 Respiratory rate 18 /min Bunny Pocos [facility] 03-18-2024 10:33-0400 Body temperature 97.16 [degF] Bunny Pocos [facility] 03-18-2024 10:30-0400 Respiratory rate 17 /min Bunny Pocos [facility] 03-18-2024 10:20-0400 Body temperature 96.8 [degF] Bunny Pocos [facility] 03-18-2024 10:15-0400 Body temperature 96.98 [degF] Bunny Pocos [facility] 03-18-2024 10:10-0400 Body temperature 96.8 [degF] Bunny Pocos [facility] 03-18-2024 06:21-0400 Blood Pressure Location Bunny Pocos [facility] 03-18-2024 06:19-0400 Blood Pressure Location Bunny Pocos [facility] 02-18-2024 09:41-0400 Diastolic blood pressure 90 mm[Hg] Bunny Pocos [facility] 02-18-2024 09:41-0400 Heart rate 78 /min Bunny Pocos [facility] 02-18-2024 09:41-0400 Mean blood pressure 113 mm[Hg] Bunny Pocos [facility] 02-18-2024 09:41-0400 Systolic blood pressure 157 mm[Hg] Bunny Pocos [facility] 02-18-2024 09:40-0400 Heart rate 81 /min Bunny Hewitt [facility] 02-18-2024 09:40-0400 SaO2% (BldA) [Mass fraction] 97 % Bunny Hewitt [facility] 02-18-2024 09:39-0400 Diastolic blood pressure 82 mm[Hg] Bunny Hewitt [facility] 02-18-2024 09:39-0400 Mean blood pressure 103 mm[Hg] Bunny Hewitt [facility] 02-18-2024 09:39-0400 Systolic blood pressure 147 mm[Hg] Bunny Hewitt [facility] 11-28-2023 10:03-0400 Body height 177.8 cm [facility] 11-28-2023 10:03-0400 Body mass index (BMI) [Ratio] 34.7 kg/m2 [facility] 11-28-2023 10:03-0400 Body weight 109.76 kg [facility] 11-28-2023 10:03-0400 Diastolic blood pressure 77 mm[Hg] [facility] 11-28-2023 10:03-0400 Heart rate 71 /min [facility] 11-28-2023 10:03-0400 Systolic blood pressure 127 mm[Hg] [facility] 11-02-2023 11:55-0400 Blood Pressure Location Lupe CAMACHO [facility] 11-02-2023 11:55-0400 Diastolic blood pressure 89 mm[Hg] Lupe CAMACHO [facility] 11-02-2023 11:55-0400 Heart rate 80 /min Lupe CAMACHO [facility] 11-02-2023 11:55-0400 Respiratory rate 16 /min Lupe CAMACHO [facility] 11-02-2023 11:55-0400 Systolic blood pressure 132 mm[Hg] Lupe CAMACHO [facility] 06-21-2023 11:33-0500 Body height 177.8 cm MD Sergio Connell Work Phone: [facility] 06-21-2023 11:33-0500 Body weight 106.59 kg MD Sergio Connell Work Phone: [facility] 03-15-2023 13:30-0400 Body height 177.8 cm Sergio Connell Other [employer] [facility] [employer] Other 03-15-2023 13:30-0400 Body mass index (BMI) [Ratio] 34.15 kg/m2 Sergio Connell Other [employer] Other 03-15-2023 13:30-0400 Body weight 107.96 kg Sergio Connell Other [employer] Other 03-15-2023 13:30-0400 Diastolic blood pressure 70 mm[Hg] Sergio Connell Other [employer] Other 03-15-2023 13:30-0400 Respiratory rate 12 /min Sergio Connell Other [employer] Other 03-15-2023 13:30-0400 Systolic blood pressure 132 mm[Hg] Sergio Connell Other [employer] Other 01-01-2023 08:45-0400 Body height 177.8 cm Sergio Connell Other [employer] Other 01-01-2023 08:45-0400 Body mass index (BMI) [Ratio] 34 kg/m2 Sergio Connell Other [employer] Other 01-01-2023 08:45-0400 Body weight 107.5 kg Sergio Connell Other [employer] Other 01-01-2023 08:45-0400 Diastolic blood pressure 75 mm[Hg] Sergio Connell Other [employer] Other 01-01-2023 08:45-0400 SaO2% (BldA) [Mass fraction] 97 % Sergio Connell Other [employer] Other 01-01-2023 08:45-0400 Systolic blood pressure 132 mm[Hg] Sergio Connell Other [employer] Other 05-29-2022 09:29-0500 Blood Pressure Location Lupemilka CAMACHO [facility] 05-29-2022 09:29-0500 Diastolic blood pressure 76 mm[Hg] Lupe CAMACHO [facility] 05-29-2022 09:29-0500 Heart rate 70 /min Lupe CAMACHO [facility] 05-29-2022 09:29-0500 Respiratory rate 16 /min Lupe CAMACHO [facility] 05-29-2022 09:29-0500 Systolic blood pressure 127 mm[Hg] Lupe CAMACHO [facility] 11-14-2021 10:33-0400 Blood Pressure Location Lupe CAMACHO [facility] 11-14-2021 10:33-0400 Diastolic blood pressure 83 mm[Hg] Lupe CAMACHO [facility] 11-14-2021 10:33-0400 Heart rate 71 /min Lupe CAMACHO [facility] 11-14-2021 10:33-0400 Systolic blood pressure 160 mm[Hg] Lupe CAMACHO [facility] Encounters Encounter Date Encounter Type Care Provider Facility Start: 05-26-2024 ambulatory Lupe Mauricioi ty:CORKY AlcantaraMoffett Start: 04-16-2024 End: 04-16-2024 ambulatory JARRETT POCOS Not Available Start: 04-16-2024 End: 04-16-2024 Patient encounter procedure Bunny Puentes Pocos DO Work Phone: [facility] Comment on above: S/P total right hip arthroplasty (Primary Dx) Start: 04-16-2024 End: 04-16-2024 ambulatory JARRETT POCOS Not Available Start: 03-18-2024 End: 03-18-2024 Admission to same day surgery center Bunny Puentes Pocos [facility] Start: 03-18-2024 End: 03-18-2024 ambulatory Jarrett Pocos Facility[facility] Start: 03-13-2024 End: 03-13-2024 ambulatory AIXA ZARAGOZA Not Available Start: 02-18-2024 End: 02-18-2024 ambulatory Jarrett Pocos Facility:[facility] Start: 02-18-2024 End: 02-18-2024 Patient encounter procedure Jarrett Pocos [facility] Start: 02-18-2024 End: 02-18-2024 ambulatory JARRETT POCOS Not Available Start: 02-11-2024 End: 02-11-2024 ambulatory JARRETT POCOS Not Available Start: 01-07-2024 End: 01-07-2024 ambulatory JARRETT POCOS Not Available Start: 11-28-2023 End: 11-28-[address] [facility] Work Phone: Start: 11-28-2023 End: 11-28-2023 Patient encounter procedure [facility] Work Phone: Start: 11-20-2023 Non-patient / Non-visit [facility] Work Phone: Start: 11-02-2023 End: 11-02-2023 ambulatory Lupe CAMACHO Facility:[facility] Start: 11-02-2023 End: 11-02-2023 Patient encounter procedure Lupe CAMACHO [facility] Start: 10-29-2023 Non-patient / Non-visit [facility] Work Phone: Start: 06-25-2023 End: 06-25-2023 ambulatory SUKHDEEP W LILIYA Not Available Start: 06-21-2023 End: 06-21-2023 ambulatory Sukhdeep Crockett Facility:[facility] Start: 06-21-2023 End: 06-21-2023 ambulatory MD Sergio Connell Work Phone: [facility] Work Phone: Start: 06-21-2023 End: 06-21-2023 Patient encounter procedure MD Sergio Connell Work Phone: [facility] [place] Work Phone: Start: 06-04-2023 ambulatory Lupe CAMACHO Facili ty:[facility] Start: 05-28-2023 End: 05-28-2023 ambulatory SUKHDEEP W MURLISYK Not Available Start: 05-24-2023 End: 05-24-2023 ambulatory BETSY CIFUENTES Not Available Start: 05-07-2023 End: 05-07-2023 ambulatory Sergio Connell Other [employer] Other Start: 05-07-2023 Telephone encounter Sergio Connell [facility] Start: 05-02-2023 End: 05-02-2023 ambulatory Sergio Connell Other [employer] Other Start: 05-02-2023 Telephone encounter Sergio Connell [facility] Start: 04-10-2023 End: 04-10-2023 ambulatory Sergio Connell Other [employer] Other Start: 04-10-2023 Telephone encounter Sergio Connell [facility] Start: 03-26-2023 End: 03-26-2023 ambulatory Sergio Connell Other [employer] Other Start: 03-26-2023 Telephone encounter Sergio Connell [facility] Start: 03-20-2023 End: 03-20-2023 ambulatory Sergio Connell Other [employer] Other Start: 03-20-2023 Telephone encounter Sergio Connell [employer] Start: 03-15-2023 End: 03-15-2023 ambulatory Sergio Connell Other [employer] Other Start: 03-15-2023 Office outpatient vi sit 15 minutes Sergio Connell [facility] Start: 02-22-2023 End: 02-22-2023 ambulatory Sergio Connell Other [employer] Other Start: 02-22-2023 Telephone encounter Sergio Connell [facility] Start: 01-11-2023 End: 01-11-2023 ambulatory Sergio Connell Other [employer] Other Start: 01-11-2023 Telephone encounter Sergio Connell [facility] Start: 01-03-2023 End: 01-03-2023 ambulatory Sergio Connell Other [employer] Other Start: 01-03-2023 Telephone encounter Sergio Connell [facility] Start: 01-01-2023 End: 01-01-2023 ambulatory Sergio Connell Other [employer] Other Start: 01-01-2023 Office outpatient vi sit 15 minutes Sergio Connell [facility] Start: 06-21-2022 End: 06-22-[address] SERGIO CONNELL Facility:[facility] Start: 06-14-2022 Adult health examination Carisa Connell Other [employer] Other Start: 05-29-2022 End: 05-29-2022 Patient encounter procedure Lupe CAMACHO [facility] Start: 05-03-2022 End: 05-04-[address] LUPE CAMACHO Facility:[facility] Start: 12-07-2021 End: [address] SERGIO CONNELL Facility:[facility] Start: 11-23-2021 End: 11-23-[address] SERGIO CONNELL Facility:[facility] Start: 11-14-2021 End: 11-15-[address] LUPE CAMACHO Facility:[facility] Start: 11-14-2021 End: 11-14-2021 Patient encounter procedure Lupe CAMACHO [facility] Start: 11-11-2021 End: 11-12-[address] LUPE CAMACHO Facility:[facility] Procedures Date Procedure Procedure Detail Performing Clinician Start: 04-16-2024 Radex hip unilateral with pelvis 2-3 views Bunny Hewitt DO Work Phone: Start: 03-18-2024 Total replacement of hip Bunny Hewitt Start: 06-21-2023 MRI of head MD Sergio Connell Work Phone: Start: 12-28-2022 Colonoscopy Bunny Winterso s DO Work Phone: Start: 05-03-[address] SERGIO CONNELL Comment on above: Performed By: #### P SAD ####[facility] [address] [address]DrCamila Chambers Start: 06-16-2021 Extracorporeal shock wave lithotripsy of calculus of kidney Lupe CAMACHO Start: 11-29-2016 Right knee arthrosco py with partial medial meniscectomy in addition to chondroplasty, patellofemoral articulation Lupe CAMACHO Start: 02-15-2016 Left hip arthroplasty P arielle CAMACHO Start: 11-06-2012 Extracorporeal shock wave lithotripsy of calculus of kidney Lupe CAMACHO Start: 07-24-2010 Extracorporeal shock wave lithotripsy of calculus of kidney Lupe CAMACHO Start: 01-27-2008 Cystoscopic removal of ureteric stent Lupe CAMACHO Start: 01-20-2008 Cystoscope, device ( physical object) Lupe CAMACHO Start: 02-14-2007 Cystoscope, device ( physical object) Lupe CAMACHO Start: 01-24-2007 Renal lithotripsy Patloren CAMACHO Arthroscope, device (physical object) Lupemilka CAMACHO Comment on above: B/l knees, left shou lder Arthroscope, device (physical object) Bunny Hewitt Cholecystectomy Lupe GARCIA Excision of basal ce ll carcinoma Lupe CAMACHO Structure of rotator cuff of left shoulder Bunny Hewitt Tonsillectomy and adenoidectomy Lupemilka CAMACHO Plan of Treatment Date Care Activity Detail Author Start: 12-28-2032 Screening for malignant neoplasm of colon [facility] Start: 06-16-2024 End: 06-16-2024 Patient encounter procedure 06/16/2024 10:30 AM EST Office Visit [facility] [address] [place] [id number] Hao Donnelly [place] [address] [place] [address] [facility] Start: 03-09-2024 Influenza vaccination Influenza Vaccine (#1) [facility] Start: 06-21-2023 Doppler ultrasonography of bilateral carotid arteries US carotid doppler BI [facility] Start: 06-21-2023 US.doppler Carotid arteries - bilateral [facility] Start: 12-09-2015 Pneumococcal Vaccine: 65+ Years (1 of 1 - PCV) Pneumococcal Vaccine: 65+ Years (1 of 1 - PCV) [facility] Start: 1950 Screening for malignant neoplasm of colon [facility] Comprehensive metabo lic 2000 panel - Serum or Plasma [facility] Immunizations Immunization Date Immunization Notes Care Provider Fa cility 06-14-2023 influenza virus vaccine, unspecified formulation [facility] 06-07-2022 influenza virus vaccine, unspecified formulation Lupe CAMACHO [facility] 04-03-2022 SARS-CoV-2 (COVID-19 ) [id number] Lupe CAMACHO [facility] Comment on above: Result Comment: 2023: [id number] 06-24-2021 influenza virus vaccine, unspecified formulation Lupe CAMACHO [facility] 05-02-2021 SARS-CoV-2 (COVID-19 ) mRNA-1273 vaccine Lupe CAMACHO [facility] 09-15-2020 SARS-CoV-2 (COVID-19 ) mRNA-1273 vaccine Lupe [employer] [facility] 08-18-2020 SARS-CoV-2 (COVID-19 ) mRNA-1273 vaccine Lupe CAMACHO [facility] 03-31-2020 influenza virus vaccine, split virus (incl. purified surface antigen) Sergio Connell Other [employer] Other 03-31-2020 influenza virus vaccine, unspecified formulation [facility] 04-25-2019 influenza virus vaccine, unspecified formulation [employer] [facility] 07-16-2018 influenza virus vaccine, split virus (incl. purified surface antigen) Sergio Connell Other [employer] Other 07-16-2018 influenza virus vaccine, unspecified formulation [employer] [facility] 07-07-2016 influenza virus vaccine, unspecified formulation [employer] [facility] 06-22-2015 influenza virus vaccine, split virus (incl. purified surface antigen) Sergio Connell Other [employer] Other 06-22-2015 influenza virus vaccine, unspecified formulation [employer] [facility] 04-01-2013 tetanus and diphther ia toxoids, adsorbed, preservative free, for adult use (5 Lf of tetanus toxoid and 2 Lf of diphtheria toxoid) Sergio Connell Other [facility] NEGATED: Highlighted row has not occurred!06-10-2019 pneumococcal polysaccharide vaccine, 23 valent Sergio Connell Other [employer] Other Payers Date Payer Category Payer Unknown [address] [employer] [id number] 2023-Present [phone] [address] [address] [place] [address] [id number] 2023 Self-pay 2015 Medicare MEDICARE MEDICAR E PART [id number] 2015-[place] [address] Medicare [id number] 1959 Medicare [id number] 1950 Unknown [id number] 2.16.840.1.169382.3.579.2.593 1950 Unknown [id number] 2.16.840.1.117377.3.579.2.593 1950 Unknown [id number] 2.16.840.1.586497.3.579.2.593 1950 Unknown [id number] 2.16.840.1.002512.3.579.2.593 1950 Unknown [id number] 2.16.840.1.038224.3.579.2.593 1950 Unknown [id number] 2.16.840.1.260050.3.579.2.593 1950 Unknown [id number] 2.16.840.1.459080.3.579.2.727 1950 Unknown [id number] 2.16.840.1.911589.3.579.2.727 1950 Unknown [id number] 2.16.840.1.019180.3.579.2.727 1950 Unknown [id number] 2.16.840.1.441021.3.579.2.727 1950 Unknown [id number] 2.16.840.1.108174.3.579.2.72 1950 Unknown [id number] 2.16.840.1.444803.3.579.2.72 1950 Unknown [id number] 2.16.840.1.934286.3.579.2.125 1950 Unknown [id number] 2.16.840.1.500192.3.579.2.1258 1950 Unknown [id number] 2.16.840.1.819548.3.579.2.1258 1950 Unknown [id number] 2.16.840.1.088229.3.579.2.1258 1950 Unknown [id number] 2.16840.1.475110.3.579.2.1258 1950 Unknown [id number] 2.16.840.1.857238.3.579.2.1258 1950 Unknown [id number] 2.16.840.1.944664.3.579.2.1258 1950 Unknown [id number] 2.16.840.1.406018.3.579.2.1258 1950 Unknown [id number] 2.16.840.1.119878.3.579.2.1258 1950 Unknown [id number] 2.16.840.1.986889.3.579.2.125 1950 Unknown [id number] 2.16.840.1.966187.3.579.2.1258 1950 Unknown [id number] 2.16.840.1.446143.3.579.2.1259 1950 Unknown [id number] 2.16.840.1.782710.3.579.2.1259 Unknown [id number] Unknown [id number] 2.16.840.1.856805.3.579.2.531 Social History Date Type Detail Facility Start: 11-14-2021 End: 05-28-2023 Tobacco smoking status Never smoked tobacco (finding) [facility] Start: 04-16-2024 [facility] At [facility] Start: 1950 Sex Assigned At Male F [facility] Tobacco smoking status Never [facility] Start: 05-28-2023 Tobacco use and exposure Smokeless tobacco non-user [facility] Start: 04-16-2024 Alcoholic beverage intake Current drinker of alcohol (finding) [facility] Start: 04-16-2024 Alcoholic beverage intake [facility] Start: 05-28-2023 Alcohol Comment caffeine intak e : coffee 2 cups [facility] Start: 1950 Sex assigned at Not on file [facility] Medical Equipment Procedure Code Equipment Code Equipment Origin al Text Equipment Identifier Dates HIP TOTAL ROBOT ARTHROPLASTY Pocos DOBunny A 03/18/24 Unknown Hip R FDA Start: 03-18-2024 HIP TOTAL ROBOT ARTHROPLASTY Pocos DOBunny A 03/18/24 Unknown Hip R FDA Start: 03-18-2024 HIP TOTAL ROBOT ARTHROPLASTY Pocos DO Bunny Puentes 03/18/24 Unknown Hip R FDA Start: 03-18-2024 HIP TOTAL ROBOT ARTHROPLASTY Pocos DOBunny A 03/18/24 Unknown Hip R FDA Start: 03-18-2024 HIP TOTAL ROBOT ARTHROPLASTY Pocos DO Bunny Puentes 03/18/24 Unknown Hip R FDA Start: 03-18-2024 HIP TOTAL ROBOT ARTHROPLASTY Pocos DO Bunny Puentes 03/18/24 Unknown Hip R FDA Start: 03-18-2024 Functional Status Date Assessment Result Facility 02-18-2024 Functional Status No [facility] 11-02-2023 Functional Status N/A [facility] 05-29-2022 Functional Status N/A [facility] Clinical Notes 11-14-2021 to 04-16-2024 Bunny Hewitt DO - 04/16/2024 2:30 PM EDT Note Date & Type Note Facility 04-16-2024 History of Present illness Narrative Post op JAZIEL 1st visit: The patient is seen and evaluated for first visit s/p total hip arthroplasty. Did well with the surgery. No anesthesia problems reported. Compliant with the hip precautions. Happy with the care provided by staff, physical therapy and our office. Pain is appropriately controlled. Denies chest pain or shortness of breath or palpitations. Continues to be consistent and diligent with home exercise program as well as physical therapy modalities. Physical therapy reports are reviewed. Physical Exam: The total hip incision is clean, dry and intact. Mild swelling as expected. Has a stable arc of motion without mechanical symptoms. No instability of the prosthesis. Stable leg lengths. No rash, infection or DVT. The calves are supple bilaterally. Gait is assisted with expected stiffness with mild antalgia. Image Results: Xrays taken in the office today, 3 views including AP pelvis and lateral hip of the operative side, saved to the permanent record, show stable position and alignment of the hip prosthesis. No sign of loosening, fracture or catastrophic wear. Assessment: S/P total hip arthroplasty-first post-operative visit Treatment Plan: The nature of the findings were discussed at length. Ice, vitamin E oil massage techniques, stretching, physical therapy modalities will be continued and were reviewed. Discontinuance of the DVT prophylaxis that was used in the first four weeks. Resume any prexisting medications and blood thinners. Continuance of physical therapy with progression to a home program. Fall precautions, with assistive device as needed. Hip dislocation precautions reviewed. Follow up will be in 2 months for repeat x-ray and exam. Metal detectors are discussed. alf antibiotic prophylaxis for dental or invasive work were reviewed. Numerous questions were answered. The patient is discharged in stable condition. documented in this encounter [facility] 03-18-2024 Note Progress Note-Js dickey Patient: GERRY LAY Age: 73 years Sex: Male : 1950 Associated Diagnoses: None Author: Lucas Veloz MD Postoperative Information Postoperative disposition: Postoperative disposition: To PACU. Aidanetrix number: Optimetrix number [id number]. Anesthetic utilized: General. Regional: FIB . Health Status Allergies: Allergic Reactions (Selected) Severity Not Documented Codeine- Nausea present. Compazine- Pt states family hx he has never had. sister x2 severe reaction muscle rigidity. Penicillins- Fever. Percocet 5/325- N&v - nausea and vomiting. Physical Examination Vital Signs 03/18/2024 14:35 EDT Heart Rate Monitored 78 bpm SpO2 93 % 03/18/2024 14:34 EDT Systolic Blood Pressure 128 mmHg Diastolic Blood Pressure 73 mmHg Mean Arterial Pressure, Monitered 91 mmHg 03/18/2024 12:59 EDT Heart Rate Monitored 70 bpm SpO2 96 % 03/18/2024 12:59 EDT Respiratory Rate 18 br/min 03/18/2024 12:58 EDT Systolic Blood Pressure 134 mmHg Diastolic Blood Pressure 75 mmHg Mean Arterial Pressure, Monitered 95 mmHg 03/18/2024 11:43 EDT Heart Rate Monitored 70 bpm SpO2 94 % 03/18/2024 11:41 EDT Respiratory Rate 16 br/min 03/18/2024 11:39 EDT Systolic Blood Pressure 129 mmHg Diastolic Blood Pressure 81 mmHg Blood Pressure Location Left arm Mean Arterial Pressure, Monitered 97 mmHg 03/18/2024 11:30 EDT Temperature Temporal Artery 36.1 DegC LOW Heart Rate Monitored 67 bpm Respiratory Rate Monitored 18 br/min Systolic Blood Pressure 121 mmHg Diastolic Blood Pressure 73 mmHg SpO2 98 % Pain Assessment: Controlled. General: Awake, Appropriate. Respiratory: Adequate air exchange. Cardiovascular: Stable. Neurological Assessment Anesthetic outcome No anesthetic complications noted. Adequate pain relief. Review / Management Condition: Stable. Plan Transfer/Discharge: Transfer/Discharge Discharge when meets criteria ( To home ). [facility] Comment on above: Result Comment: Elec tronically Signed By: Lucas Veloz MD\.br\Date and Time Signed: 03/18/24 14:43 EDT 03-18-2024 Note Interdisciplinary No te - PT PT evaluation completed with an AMPAC score of 18. Pt able to ambulate 75 ft with CGA and FWW. Pt would be functionally safe to be discharged home with caregiver assist and [id number] to follow. [facility] 03-18-2024 Evaluation + Plan note Extrac prabhu from: Title:ANES Post-operative Note---General Author: Lucas Veloz MD. Date:03/18/24 Plan Transfer/Discharge: Transfer/Discharge Discharge when meets criteria ( To home ). Extracted from: Title:ANES Pre-operative Note 2022 Author:Lucas Soriano Date:03/18/24 Plan [place] [employer]esthesi[employer] (ASA) physical status classification: Class III. Anesthetic Preoperative Plan: Anesthesia. Regional Spinal, and Fascia Iliaca Block . Future Appointments Appointment Date:05/26/2024 08:45:00 AM Scheduled Provider:Lupe CAMACHO MD Location:[facility] Appointment Type:URO Office Visit [facility] 09-10-2024 Hospital Discharge instructions Patient Education 03/18/2024 11:31:13 Post Op Patient Instructions - FT (Custom) (CUSTOM) 03/11/2024 07:09:40 [facility] - Hip Replacement Arthroplasty - Posterior Lateral Approach (Custom) [place], [place] [facility] DISCHARGE INSTRUCTIONS HIP REPLACEMENT ARTHROPLASTY Posterior Lateral Approach INCISION CARE: Continue the daily dressing care to the hip as instructed in the hospital for 7 days postoperatively. The dressing will then be changed and worn an additional 7 days. You may then discontinue the dressing changes. The dressing over the upper pelvis area may be removed postoperatively on day #3 and left open to air. Please notify the office if any increase in redness, tenderness, drainage, fever, or wound separation is noted. DISLOCATION PRECAUTIONS: Continue to use the abduction pillow between the knees at all times, both while in bed and up in chair. This abduction pillow should be removed only while walking and performing physical therapy exercises; otherwise, to be used while sitting and while in bed. This will be maintained for six weeks postoperatively. At that time, you may begin using a regular bed pillow between your knees at night. You should continue to avoid crossing the knees or crossing the legs for six months postoperatively.Sitting in a chair should always be such that the knees are kept below the level of the hips to avoid increased flexion of the hip, possibly causing dislocation. MEDICATIONS: You may resume your home medications at the time of discharge. You may take up to 3,000 mg Acetaminophen (Tylenol) per day as needed. Duricef (cefadroxil) as prescribed for 4 doses. Start with the evening dose the day of surgery. Take 1 Ecotrin aspirin (81 mg) twice daily with food for the next 4 weeks. Start with evening dose the day of surgery. [facility] Discharge Instructions for Hip Replace.Page 2 Medications Cont... Pain medication has been prescribed as well. You may continue to use the pain medication every fourhours as needed. Any narcotic pain medication can cause side effects including stomach upset, constipation, or light-headedness. You should not drive or operate machinery, or use alcohol while using the narcotic pain medication. You should not use other pain medications with this prescription pain medication unless further directed by your physician. PHYSICAL THERAPY DISLOCATION PRECAUTIONS: Continue the weightbearing as tolerated. Continue the range of motion and strengthening exercises initiated in Physical Therapy in the hospital. Again, do not cross legs, internally rotate the legs, or flex the hip above 90 degrees for six months postoperatively. Continue weight bearing, as ordered, to the operated hip for four to six weeks as directed in Physical Therapy. This will be with the use of a walker or crutches. After four or six weeks you may thenprogress to the use of one crutch, or a cane. A quad-cane is preferred as this is more stable. Physical therapy as begun in the hospital will continue at home, possible with the speech language pathology assistant of Home Health Physical Therapy or in the hospital as an outpatient. When you have become independent withthe physical therapy program, this will then be discontinued as a supervised program and you will be instructed to continue the physical therapy exercises at home. DRIVING: Do NOT Drive FOLLOW-UP OFFICE VISIT: 4 weeks Postop Bunny Hewitt, [facility] [address] [place] [id number] Revised: 11-28 Follow Up Care 02/11/2024 10:15:08 With:Bunny Hewitt Address: [address] [place] [phone]- Business (1) When:04/16/2024 14:30:00 Comments:Appointment has already been scheduled. Call for any problems. [facility] 09-10-2024 NotePatient Education - Text [place], [place] [facility] DISCHARGE INSTRUCTIONS HIP REPLACEMENT ARTHROPLASTY Posterior Lateral Approach INCISION CARE: Continue the daily dressing care to the hip as instructed in the hospital for 7 days postoperatively. The dressing will then be changed and worn an additional 7 days. You may then discontinue the dressing changes. The dressing over the upper pelvis area may be removed postoperatively on day #3 and left open to air. Please notify the office if any increase in redness, tenderness, drainage, fever, or wound separation is noted. DISLOCATION PRECAUTIONS: Continue to use the abduction pillow between the knees at all times, both while in bed and up in chair. This abduction pillow should be removed only while walking and performing physical therapy exercises; otherwise, to be used while sitting and while in bed. This will be maintained for six weeks postoperatively. At that time, you may begin using a regular bed pillow between your knees at night. You should continue to avoid crossing the knees or crossing the legs for six months postoperatively.Sitting in a chair should always be such that the knees are kept below the level of the hips to avoid increased flexion of the hip, possibly causing dislocation. MEDICATIONS: You may resume your home medications at the time of discharge. You may take up to 3,000 mg Acetaminophen (Tylenol) per day as needed. Duricef (cefadroxil) as prescribed for 4 doses. Start with the evening dose the day of surgery. Take 1 Ecotrin aspirin (81 mg) twice daily with food for the next 4 weeks. Start with evening dose the day of surgery. [facility] Discharge Instructions for Hip Replace. Page 2 Medications Cont... Pain medication has been prescribed as well. You may continue to use the pain medication every fourhours as needed. Any narcotic pain medication can cause side effects including stomach upset, constipation, or light-headedness. You should not drive or operate machinery, or use alcohol while using the narcotic pain medication. You should not use other pain medications with this prescription pain medication unless further directed by your physician. PHYSICAL THERAPY ? DISLOCATION PRECAUTIONS: Continue the weightbearing as tolerated. Continue the range of motion and strengthening exercises initiated in Physical Therapy in the hospital. Again, do not cross legs, internally rotate the legs, or flex the hip above 90 degrees for six months postoperatively. Continue weight bearing, as ordered, to the operated hip for four to six weeks as directed in Physical Therapy. This will be with the use of a walker or crutches. After four or six weeks you may thenprogress to the use of one crutch, or a cane. A quad-cane is preferred as this is more stable. Physical therapy as begun in the hospital will continue at home, possible with the speech language pathology assistant of Home Health Physical Therapy or in the hospital as an outpatient. When you have become independent withthe physical therapy program, this will then be discontinued as a supervised program and you will be instructed to continue the physical therapy exercises at home. DRIVING: Do NOT Drive FOLLOW-UP OFFICE VISIT: 4 weeks Postop Bunny Hewitt DO [facility] [address] [place] [address] Revised: 11-28[facility]09-10-20[facility] NoteProgress Note-Physician Patient: GERRY LAY Age: 73 years Sex: Male : 1950 Associated Diagnoses: None Author: Bunny Hewitt DO Postoperative Information Procedure: R RA JAZIEL Preoperative Diagnosis: R hip OA. Postoperative Diagnosis: same. Performed by: bridgette. Brazing Machine Operator: Patrice Cisneros. Specimens Removed: bone, soft tissue. Prosthesis: Arminto. . Estimated Blood Loss: 300 ml. Complications: None. Anesthesia type: Spinal, fascia iliaca block.[facility]Result Comment: Electronically Signed By: Bunny Hewitt DO\.br\Date and Time Signed: 03/18/24 10:23 [id number] NoteProgress Note-Physician Patient: GERRY LAY Age: 73 years Sex: Male : 1950 Associated Diagnoses: None Author: Fish MD, Lucas D. Preoperative Information Anesthesia Preop Info: Time patient last ate or drank 12/11/2023 00:00:00. Anesthesia history: Patient history: Difficult intubation. Family history+: None. Informed consent: Signed by patient. Re-evaluation prior to induction: Initial evaluation reviewed: No significant change. Review of Systems Eye Ear/Nose/Mouth/Throat Respiratory: No shortness of breath, No cough. Cardiovascular: No chest pain, No palpitations. Gastrointestinal: No heartburn. Musculoskeletal Neurologic Health Status Allergies: Allergic Reactions (Selected) Severity Not Documented Codeine- Nausea present. Compazine- Pt states family hx he has never had. sister x2 severe reaction muscle rigidity. Penicillins- Fever. Percocet 5/325- N&v - nausea and vomiting., Allergies (4) Active Severity Reaction codeine Nausea present penicillins fever Percocet 5/325 N&V - Nausea and vomiting Compazine pt states family hx he has never had. s sister x2 severe reaction muscle rigidity Current medications: (Selected) Inpatient Medications Ordered Flomax 0.4 mg Cap: 0.4 mg = 1 cap(s), Cap, Oral, BID, Routine, Start date 03/18/24 21:00:00 EDT HYDROmorphone 1 mg/mL injectable solution: 0.4 mg = 0.4 mL, Injection, IV Push, q4min PRN Pain for 5 dose(s), Stop date Limited # of times, Routine, Start date 03/18/24 9:02:00 EDT, 03/18/24 9:02:00 EDT Lactated Ringers IV Lexi 1000 mL 1,000 mL: 1,000 mL, IV, 100 mL/hr, Routine, Start date 03/18/24 9:02:00 EDT, 10 hour(s), Total volume (mL): 1,000, 111.4 kg, 2.34, m2 Lactated Ringers IV Lexi 1000 mL 1,000 mL: 1,000 mL, IV, 150 mL/hr, Routine, Start date 03/18/24 6:00:00 EDT, 6.7 hour(s), Total volume (mL): 1,000, 111.4 kg, 2.34, m2 Lactated Ringers IV Lexi 1000 mL 1,000 mL: 1,000 mL, IV, 80 mL/hr, Routine, Start date 03/18/24 7:50:00 EDT, 12.5 hour(s), Total volume (mL): 1,000, 111.4 kg, 2.34, m2 Pantoprazole [address] Tab: 40 mg = 1 tab(s), Tab-DR, Oral, Daily, Routine, Start date 03/18/24 9:00:00 EDT Zofran 4 mg/2 mL Injection: 4 mg = 2 mL, Injection, IV Push, Once PRN Nausea/Vomiting, Routine, Start date 03/18/24 9:02:00 EDT, 03/18/24 9:02:00 EDT acetaminophen 325 mg Tab: 650 mg = 2 tab(s), Tab, Oral, q6hr for 3 dose(s), Stop date 03/19/24 1:59:00 EDT, Routine, Start date 03/18/24 8:00:00 EDT, 03/18/24 7:50:00 EDT ascorbic acid 500 mg Tab: 500 mg = 1 tab(s), Tab, Oral, BIDWM, Routine, Start date 03/18/24 8:00:00EDT atorvastatin 40 mg Tab: 40 mg = 1 tab(s), Tab, Oral, Bedtime, Routine, Start date 03/18/24 21:00:00EDT bisacodyl 5 mg Oral EC Tab: 10 mg = 2 tab(s), Tab-EC, Oral, Once PRN Constipation, Routine, Start date 03/18/24 7:50:00 EDT cefazolin additive + Premix Sodium Chloride 0.9% 100 mL: 3 gram = 100 mL, Soln- IV, IV Piggyback, PREOP, Routine, Start date 03/18/24 6:00:00 EDT, 200 mL/hr, Infuse over 30 minute(s), OK per [facility] cefazolin additive + Sodium Chloride 0.9% intravenous solution 50 mL: 2 gram = 1 EA, IV Piggyback, q8hr for 2 dose(s), Stop date 03/18/24 23:59:00 EDT, Routine, Start date 03/18/24 8:00:00 EDT, 100 mL/hr, Infuse over 30 minute(s), 03/18/24 7:50:00 EDT docusate sodium 100 mg Cap: 100 mg = 1 cap(s), Cap, Oral, BID PRN Constipation, Routine, Start date03/18/24 7:50:00 EDT ferrous sulfate 325 mg Tab: 325 mg = 1 tab(s), Tab, Oral, BIDWM, Routine, Start date 03/18/24 8:00:00 EDT hydrochlorothiazide 25 mg Tab: 25 mg = 1 tab(s), Tab, Oral, Daily, Routine, Start date 03/19/24 9:00:00 EDT levothyroxine 75 mcg (0.075 mg) Tab: 75 mcg = 1 tab(s), Tab, Oral, Daily, Routine, Start date 03/19/24 6:30:00 EDT, 03/19/24 6:30:00 EDT magnesium hydroxide 8% Oral Susp 30 mL: 30 mL, Susp-Oral, Oral, BID PRN Constipation, Routine, Start date 03/18/24 7:50:00 EDT ondansetron 4 mg/2 mL Inj: 4 mg = 2 mL, Injection, IV Push, q6hr PRN Nausea/Vomiting, Routine, Start date 03/18/24 7:50:00 EDT, 03/18/24 7:50:00 EDT oxyCODONE 5 mg Tab: 10 mg = 2 tab(s), Tab, Oral, q4hr PRN Pain 8-10 for 5 day(s), Stop date 03/23/24 7:49:00 EDT, Routine, Start date 03/18/24 7:50:00 EDT, 03/18/24 7:50:00 EDT oxyCODONE 5 mg Tab: 5 mg = 1 tab(s), Tab, Oral, q4hr PRN Pain for 5 day(s), Stop date 03/23/24 7:49:00 EDT, Routine, Start date 03/18/24 7:50:00 EDT, 03/18/24 7:50:00 EDT Prescriptions Prescribed Cialis 20 mg Tab: 20 mg = 1 tab(s), Oral, As Directed, PRN erectile dysfunction, # 30 tab(s), Refills(s) 3, Pharmacy: [facility]/pharmacy #[id number], 178, cm, 11/02/23 11:57:00 EDT, Height/Length Dosing, 102, kg, 11/02/23 11:57:00 EDT, Weight Dosing Colace 100 mg Cap: 100 mg = 1 cap(s), Oral, BID, PRN for constipation, # 40 cap(s), Refills(s) 0, Pharmacy: [facility]/pharmacy #[id number], 177.5, cm, 02/18/24 14:14:00 EDT, Height/Length Dosing, 111.4, kg, 02/18/24 14:14:00 EDT, Weight Dosing Flomax 0.4 mg Cap: 0.4 mg = 1 cap(s), Oral, BID, # 180 cap(s) (more content not included)...[facility]Comment on [facility]:Result Comment: Electronically Signed By: Aj NATHAN, Lucas Matias\.br\Date and Time Signed: 03/18/24 09:06 [id number] NotePatient Education - Text [place], [place] [facility] DISCHARGE INSTRUCTIONS HIP REPLACEMENT ARTHROPLASTY Posterior Lateral Approach INCISION CARE: Continue the daily dressing care to the hip as instructed in the hospital for 7 days postoperatively. The dressing will then be changed and worn an additional 7 days. You may then discontinue the dressing changes. The dressing over the upper pelvis area may be removed postoperatively on day #3 and left open to air. Please notify the office if any increase in redness, tenderness, drainage, fever, or wound separation is noted. DISLOCATION PRECAUTIONS: Continue to use the abduction pillow between the knees at all times, both while in bed and up in chair. This abduction pillow should be removed only while walking and performing physical therapy exercises; otherwise, to be used while sitting and while in bed. This will be maintained for six weeks postoperatively. At that time, you may begin using a regular bed pillow between your knees at night. You should continue to avoid crossing the knees or crossing the legs for six months postoperatively.Sitting in a chair should always be such that the knees are kept below the level of the hips to avoid increased flexion of the hip, possibly causing dislocation. MEDICATIONS: You may resume your home medications at the time of discharge. You may take up to 3,000 mg Acetaminophen (Tylenol) per day as needed. Duricef (cefadroxil) as prescribed for 4 doses. Start with the evening dose the day of surgery. Take 1 Ecotrin aspirin (81 mg) twice daily with food for the next 4 weeks. Start with evening dose the day of surgery. [facility] Discharge Instructions for Hip Replace. Page 2 Medications Cont... Pain medication has been prescribed as well. You may continue to use the pain medication every fourhours as needed. Any narcotic pain medication can cause side effects including stomach upset, constipation, or light-headedness. You should not drive or operate machinery, or use alcohol while using the narcotic pain medication. You should not use other pain medications with this prescription pain medication unless further directed by your physician. PHYSICAL THERAPY ? DISLOCATION PRECAUTIONS: Continue the weightbearing as tolerated. Continue the range of motion and strengthening exercises initiated in Physical Therapy in the hospital. Again, do not cross legs, internally rotate the legs, or flex the hip above 90 degrees for six months postoperatively. Continue weight bearing, as ordered, to the operated hip for four to six weeks as directed in Physical Therapy. This will be with the use of a walker or crutches. After four or six weeks you may thenprogress to the use of one crutch, or a cane. A quad-cane is preferred as this is more stable. Physical therapy as begun in the hospital will continue at home, possible with the speech language pathology assistant of Home Health Physical Therapy or in the hospital as an outpatient. When you have become independent withthe physical therapy program, this will then be discontinued as a supervised program and you will be instructed to continue the physical therapy exercises at home. DRIVING: Do NOT Drive FOLLOW-UP OFFICE VISIT: 4 weeks Postop Bunny Hewitt, DO [facility] [address] [place] [address] Revised: 11-28[facility] Hospital Discharge instructions Patient Education 11/02/2023 13:09:17 Erectile Dysfunction Erectile Dysfunction Erectile dysfunction (ED) is the inability to get or keep an erection in order to have sexual intercourse. ED is considered a symptom of an underlying disorder and is not considered a disease. ED mayinclude: Inability to get an erection. Lack of [...] back or pelvic injuries, multiple sclerosis, Parkinson's disease,spinal cord injury, and stroke. Certain medicines, such [...] or the penis may be too curved toallow for intercourse. Never having nighttime or morning [...] penis. During this procedure, a blood vessel froma different part of the body is placed into the penis to allow blood to flow around (bypass) damaged or blocked blood vessels. Lifestyle changes, such as exercising more, losing weight, and quitting smoking. Follow these instructions at home: Medicines Take [id number] and prescription medicines only as told by your health care provider. Do not increase the dosage without first discussing it with your health care provider. If you are using self-injections, do injections as directed by your health care provider. Make sureyou avoid any veins that are on the surface of the penis. After giving an injection, apply pressureto the injection site for 5 minutes. Talk [...] you need help quitting, ask your health careprovider. Before using a vacuum pump, read the instructions that come with the pump and discuss any questionswith your health care provider. Keep all follow-up [...] provider. Document Revised: 09/21/2021 Document Reviewed: 09/21/2021 [employer] Patient Education 2022 [employer]. Follow Up Care 05/25/2023 13:25:49 With:DOUG NATHAN, Lupe Phan, URL Address: [address] [place] [id number]- When: Unknown [facility]* Encounter Date Diagnosis Assessment Notes Treatment Notes Treatment Clinical Notes Apr, Left lower lobe pulmonary nodule (ICD-10 - R91.1) [employer] Other 09-07-2023 Evaluation note* Encounter Date Diagnosis Assessment Notes Treatment Notes Treatment Clinical Notes Mar, Benign paroxysmal positional vertigo due to bilateral vestibular disorder (ICD-10 - H81.13) Pt requests referral to Dr. Murcek - states his office would like a CT sinus to be complete prior to the OV. [employer] Other 07-06-2023 Evaluation note* Encounter Date Diagnosis Assessment Notes Treatment Notes Treatment Clinical Notes Jan, Dyspnea on exertion (ICD-10 - R06.09) [employer] Other 06-26-2023 Evaluation note* Encounter Date Diagnosis Assessment Notes Treatment Notes Treatment Clinical Notes Dec, Primary hypertension (ICD-10 - I10) Chronic problem- check labs and EKG. Upcoming trip to [place] later this summer. Dec, BPV (benign positional vertigo), bilateral (ICD-10 - H81.13) Order printed for PT Dec, Acquired hypothyroidism (ICD-10 - E03.9) Check labs. [employer] Other 11-21-2022 Hospital Discharge instructions Patient Education [...] include: ?Spinach. ?Rhubarb. ?Beets. ?Potato chips and bulgarian fries. ?Nuts. If you regularly take a diuretic medicine, make sure to eat at least 1 2 fruits or vegetables high in potassium each day. These include: ?Avocado. ?Banana. ?Bunola, prune, carrot, or tomato juice. ?Baked potato. [...] Casseroles. Pizza. Lasagna. Frozen meals. Potato chips. Panamanian fries. Summary You can reduce your risk [...] 10/20/2011 Document Revised: 10/15/2019 Document Reviewed: 06/05/2017 [employer] Patient Education 2020 [employer]. Follow Up Care 11/14/2021 11:17:31 With:DOUG NATHAN, ANNABEL Mora Address: [facility] [address] [place] [id number]- When: Unknown [facility] Estephania 05-09-2022 Hospital Discharge instructions Patient Education 11/14/2021 [...] include: ?Spinach. ?Rhubarb. ?Beets. ?Potato chips and bulgarian fries. ?Nuts. If you regularly take a diuretic medicine, make sure to eat at least 1 2 fruits or vegetables high in potassium each day. These include: ?Avocado. ?Banana. ?Bunola, prune, carrot, or tomato juice. ?Baked potato. [...] Casseroles. Pizza. Lasagna. Frozen meals. Potato chips. Panamanian fries. Summary You can reduce your risk [...] 10/20/2011 Document Revised: 10/15/2019 Document Reviewed: 06/05/2017 [employer] Patient Education 2020 [employer]. Follow Up Care 07/15/2021 13:17:36 With:DOUG NATHAN, Lupe Phan, URL Address: [facility] [address] , [place] [address]- When: Unknown [facility] evaluation + Plan note Future Appointments Appointment Date:05/29/2022 09:15:00 AM Scheduled Provider:Lupe CAMACHO MD Location:[facility] Appointment Type:URO Office Visit Diagnostic Tests Pending * PSA Total 11/14/21 * Calculi Analysis Urinary 11/14/21 [facility] evaluation + Plan note Future Appointments Appointment Date:06/04/2023 09:15:00 AM Scheduled Provider:Lupe CAMACHO MD Location:[facility] Appointment Type:URO Office Visit Diagnostic Tests Pending * PSA Total 05/29/22 [facility] evaluation + Plan note Future Appointments Appointment Date:05/26/2024 08:45:00 AM Scheduled Provider:Lupe CAMACHO MD Location:[facility] Appointment Type:URO Office Visit Diagnostic Tests Pending * PSA Total 12/22/23 * PSA Total 03/09/24 [facility] evaluation + Plan note Future Appointments Appointment Date:03/18/2024 09:00:00 AM Scheduled Provider: Alvarado:[facility] Appointment Type:Surgery FT Appointment Date:05/26/2024 08:45:00 AM Scheduled Provider:Lupe CAMACHO MD Location:[facility] Appointment Type:URO Office Visit [facility] evaluxkcef noteNo [facility] Other evaluation noteNo assessment information available [facility] Work Phone: evaluation note* Diagnosis Onset Date Resolution Status HTN (hypertension) acute Hyperlipidemia acute Hypothyroid acute [facility] Work Phone: evaluation note* Diagnosis S/P total right hip arthroplasty- Primary documented in this encounter [facility] N[facility]ative - Reported* Type Description Date Medical History Kidney stones Medical History Hypercholesterolemia Surgical History lithotripsy Surgical History cystoscopy Surgical History knee arthroscopy Surgical History rotator cuff Surgical History cholecystectomy Surgical History Colonoscopy 12/2022 Hospitalization History see above [facility] Other Hospital course Narrative No data available for this section [facility] Hospital Discharge instructions No data available for this section [facility] Progress note No data available for this section [facility] reason for visit Narrativereferral for vertigo, medication [facility] Other Summary Purpose Family History Relationship Condition Age at Onset Recorded Date/T abelardo brother Heart disease Unknown Unknown father Unknown Disorder of lung Unknown Advance Directives Advance Directive Response Recorded Date/ Time Advance Directives No June 12, 2023 12:51pm Advance Directive Response Recorded Date/ Time Advance Directives No June 12, 2023 1:51pm Reason for Referral Reason vertigo - today s visit Diagnosis 1 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) Referral Organization [facility] Referring Provider First Name Sergio Referring Provider Last Name Ko Referring Provider Specialty [facility] Referred Organization [facility] Referred Provider Sukhdeep Crockett Referred Address ,[place], [place],[address] Referred Provider Specialty Otolaryngolo gy Referral Priority [...] Team Status: Active Member Role Status Dates Sergio Connell MD Primary Care Provider Active Team Status: Active Member Role Status Dates Sergio Connell MD Primary Care Provide r, Attending Provider Active Start: October 29, 2023 Team Status: Active Member Role Status Dates Sergio Connell MD Primary Care Provider Active Start: November 20, 2023 Ingrid Olson TYLOR Attending Provider Active Start : November 20, 2023 Team Status: Inactive Member Role Status Dates Sergio Connell MD Primary Care Provide r, Attending Provider Active Start: November 28, 2023 End: November 28, 2023 Team Status: Inactive Member Role Status Dates Sukhdeep Crockett DO Attending Provider Active Sergio Connell MD Primary Care Provider Active Pickup Driver Relationship Specialty Start Date End Date Sergio Connell MD [address] [place] [id number] PCP - General Family Medicine 05/24/23 (unrecognized sect ion and content) No Status Records FoundNo Status Records FoundNo Status Records FoundNo Status Records FoundNo Status Records FoundNo Status Records FoundNo Status Records FoundNo Status Records FoundNo Status Records FoundNo Status Records FoundNo Status Records FoundNo Status Records FoundNo Status Records Found INFORMATION SOURCE (unrecogn ized section and content) DATE CREATED AUTHOR 06/30/[address] [facility] DATE CREATED AUTHOR AUTHOR'S ORGANIZ ATION 08/17/2023 [facility] DATE CREATED AUTHOR AUTHOR'S ORGANIZ ATION 02/19/2024 [facility] DATE CREATED AUTHOR AUTHOR'S ORGANIZ ATION [facility]/20[facility] DATE CREATED AUTHOR AUTHOR'S ORGANIZ ATION 03/22/2024 [facility] DATE CREATED AUTHOR AUTHOR'S ORGANIZ ATION 03/26/2024 [facility] DATE CREATED AUTHOR AUTHOR'S ORGANIZ ATION 04/18/2024 [facility] EPIC REASON FOR VISIT (unrecogniz ed section and content) Reason Comments Post-op Goals (unrecognized section and content) Goals may [...] BE BASED ON THE PRIMARY CLINICAL RECORDS. [facility] [employer] [facility]. provides no warranty or guarantee of the accuracy or completeness of information in this document.
--- NOTE | 2024-05-21 08:06 | XR_ITS ---
The [address] [address] Patient Name: GERRY LAY MRN: [id number] date: 1950 Sex: M Assigned Patient Location: LAB Current Patient Location: Accession/Order Number: [id number] Exam Date: 05/21/2024 08:18 Report Date: 05/23/2024 16:00 At the request of: LUPE CAMACHO Procedure: XR abdomen 1V EXAMINATION: XR abdomen 1V HISTORY: Screening Prostate Cancer, Kidney Stone COMPARISON: XR abdomen 10/29/2023 FINDINGS: KIDNEY/URETER - RIGHT: No visible renal or ureteral calcifications. KIDNEY/URETER - LEFT: Stable appearance of several small stones within left kidney. PELVIS: No appreciable ureteral stones. Stable pelvic calcifications favoring phleboliths. BOWEL: No abnormal dilation or deviation. BONES: Bilateral hip replacements. OTHER: Negative. No abnormal gaseous collections. XR/XR abdomen 1V IMPRESSION: 1. Grossly stable left nephrolithiasis. Electronically authenticated by: AIXA DURANT Date: 05/23/2024 16:00
[2024-05-21 09:12] LABS: Prostate Specific Antigen Dx 3.62 ng/mL (<=4.00)
== END 2024-05-21 07:46 | disposition home or self-care (01) ==
LOC: LAB 07:49
PROVIDERS: Family Provider Optometrist; PCP Family Medicine; Visit Provider Urology
DX: N20.0 Calculus of kidney (principal); Z12.5 Encounter for screening for malignant neoplasm of prostate
CPT/HCPCS: 36415; 74018; 84153

== ENCOUNTER 2024-05-27 11:12 | Outpatient (REF) | payer MEDICARE, OTHER, SELFPAY ==
--- OUTSIDE RECORDS SUMMARY | 2024-05-27 11:37 | XMS_ITS | CCD ---
Author Organization [facility] Care Team Providers Care Access Service Representative Name Role Phone SERGIO CONNELL Primary Care Physician KO, DR SERGIO Maldonado Attending Unavailable CONNELL, DR SERGIO Maldonado Admitting Unavailable CONNELL, DR SERGIO Maldonado Primary Care Unavailable Ziebdaria, DR Varner Consulting Unavailable CONNELL, DR SERGIO Maldonado Consulting Unavailable QUILES, DR ZULEIKA Ibrahim Consulting Unavailabl e DOUG, DR ANDRADE Attending Unavailable BEAVER, DR ANDRADE Admitting Unavailable CONNELL, DR SERGIO Maldonado Primary Care Unavailable BEAVER, DR ANDRADE Consulting Unavailable Zieber, DR Varner Consulting Unavailable CONNELL, DR SERGIO Maldonado Consulting Unavailable CONNELL, DR SERGIO Maldonado Attending Unavailable CONNELL, DR SERGIO Maldonado Admitting Unavailable CONNELL, DR SERGIO Maldonado Primary Care Unavailable CONNELL, DR SERGIO Maldonado Consulting Unavailable CONNELL, DR SERGIO Maldonado Attending Unavailable CONNELL, DR SERGIO Maldonado Admitting Unavailable CONNELL, DR SERGIO Maldonado Primary Care Unavailable BEAVER, DR ANDRADE Attending Unavailable BEAVER, DR ANDRADE Admitting Unavailable CONNELL, DR SERGIO Maldonado Primary Care Unavailable BEAVER, DR ANDRADE Consulting Unavailable BEAVER, DR ANDRADE Attending Unavailable BEAVER, DR ANDRADE Admitting Unavailable BEAVER, DR ANDRADE Consulting Unavailable CONNELL, DR SERGIO Maldonado Primary Care Unavailable RADHA PATEL Consulting Unavailable Sergio Connell Unavailable DO Sukhdeep Crockett Attending Provider MD Sergio Connell Primary Care Provider [phone] Sukhdeep Crockett Attending Unavailable Sukhdeep Crockett Admitting Unavailable Sergio Connell Primary Care Unavailable Pocos, Bunny Puentes Referring Unavailable Pocos, Bunny Puentes Admitting Unavailable Pocos, Bunny Puentes Attending Unavailable Pocos, Bunny Puentes Referring Unavailable Pocos, Bunny Puentes Admitting Unavailable Pocos, Bunny Puentes Attending Unavailable Pocos, Bunny Puentes Referring Unavailable Pocos, Bunny Puentes Attending Unavailable Pocos, Bunny Puentes Admitting Unavailable VANEBETSY Attending Unavailable MURCEK, SUKHDEEP W Attending Unavailable SERGIO CONNELL Referring Unavailable POCOS, BUNNY Puentes Referring Unavailable POCOS, BUNNY Puentes Attending Unavailable POCOS, BUNNY Puentes Referring Unavailable POCOS, BUNNY Puentes Referring Unavailable POCOS, BUNNY Puentes Attending Unavailable SUKHDEEP CROCKETT Attending Unavailable POCOS, BUNNY Puentes Referring Unavailable POCOS, BUNNY Puentes Attending Unavailable AIXA ZARAGOZA Attending Unavailable POCOS, BUNNY Puentes Referring Unavailable POCOS, BUNNY Puentes Referring Unavailable POCOS, BUNNY Puentes Attending Unavailable Sergio Connell MD Primary Care Provider Lupe BEAVER Attending Unavailable BEAVER, Lupe Phan Attending Unavailable BEAVER, Lupe Phan Attending Unavailable Pocos, Bunny Puentes Attending Unavailable Pocos, Bunny Puentes Referring Unavailable Pocos, Bunny Puentes Admitting Unavailable Allergies Allergy Classification Reported Allergen(s) Allergy Type Date of Onset Reaction(s) Facility (6 sources) Acetaminophen / oxyCODONE; Translations: [acetaminophen-oxyc odone] Drug Allergy Nausea and vomiting (disorder) [facility] Comment on above: Can take Midway or hy drocodone without issue (20 sources) Codeine; Translations: [codeine] Drug Allergy 07-06-20 15 Nausea present (context-depen dent category), Nausea Only, Unknown [facility] (11 sources) Penicillins; Translations: [penicillins] Drug allergy 07-09-18 62 fever [facility] (16 sources) Prochlorperazine; Translations: [prochlorperazine] Drug Allergy 10-28-19 23 pt states family hx he has never had. sister x2 severe reaction muscle rigidity, Unknown [facility] (1 source) Acetaminophen / oxyCODONE Drug Allergy [facility] (1 source) Codeine Drug Allergy 09-16-19 14 [facility] (1 source) Prochlorperazine Drug Allergy 07-09-18 62 [facility] (11 sources) Penicillin G Drug Allergy Unknown [facility] Other (8 sources) Substance with penicillin structure and antibacterial mechanism of action (substance) Drug allergy 04-01-20 13 Unknown [facility] Other (8 sources) Compazine *ANTIPSYCHOTICS/ANT IMANIC AGENTS* Propensity to adverse reactions 04-01-20 13 Unknown [facility] Other (2 sources) patient allergy list reviewed by nurse or physicia Propensity to adverse reactions 11-08-19 14 Comment:Done [facility] Other (2 sources) Allergies Reconciled Propensity to adverse reactions Unknown [facility] Other (1 source) Codeine Drug Allergy 06-14-20 [facility] (1 source) Penicillin Drug Allergy 06-14-20 [facility] (1 source) Prochlorperazine Drug Allergy 06-14-20 [facility] (1 source) Unable to Assess Drug allergy (disorder) 06-21-20 [facility] (3 sources) Acetaminophen / oxyCODONE; Translations: [Percocet 5/325] Drug Allergy [facility] (2 sources) Acetaminophen / oxyCODONE Drug Allergy 10-28-19 GI intolerance [facility] Medications Current Medications Medication Drug Class(es) Dates Sig (Normalized) Sig (Original) acetaminophen 325 mg / HYDROcodone bitartrate 5 mg oral tablet (1 source) Opioid Agonist Start: 06-20-2021 Midway 325 mg-5 mg oral tablet 1 tab(s), Oral, TID for pain, 20 tab(s), Refill(s) 0, [id number], 177.8, cm, 06/07/21 13:24:00 EST, Height/Length Dosing, 113, kg, 06/07/21 13:24:00 EST, Weight Dosing Start Date: 06/20/21 Status: Ordered aspirin 81 mg delayed release oral tablet (4 sources) Platelet Aggregation Inhibitor, Nonsteroidal Anti-inflammatory Drug Start: 03-18-2024 take 1 tablet by mouth twice daily aspirin 81 mg Oral EC Tab 81 mg = 1 tab(s), Oral, BID, # 60 tab(s), Refills(s) 0, Pharmacy: [facility]/pharmacy #[id number], 177.5, cm, 02/18/24 14:14:00 EDT, Height/Length [...] day(s), # 4 cap(s), Refills(s) 0, [id number] 177.5, cm, 02/18/24 14:14:00 EDT, Height/Length Dosing, 111.4, kg, 02/18/24 14:14:00 EDT, Weight Dosing Start Date: 03/18/24 Stop Date: 03/20/24 Status: Ordered cephalexin 500 mg oral capsule (2 sources) Cephalosporin Antibacterial Start: 04-16-2024 cephalexin (Keflex) 500 MG capsule Indications: S/P total right hip arthroplasty Take all 4 capsules one hour before the procedure. 4 capsule 04/16/2024 Active CoQ10 (6 sources) Start: 04-21-2021 take 300 mg by mouth once daily CoQ10 300 mg, Oral, Daily, Refills(s) 0, Prophylaxis Start Date: 04/21/21 Status: Ordered docusate sodium 100 mg oral capsule (2 sources) Start: 03-18-2024 take 1 capsule by mouth twice daily as needed for constipation Colace 100 mg Cap 100 mg = 1 cap(s), Oral, BID, PRN for constipation, # 40 cap(s), Refills(s) 0, Pharmacy: [facility]/pharmacy #[id number], 177.5, cm, 02/18/24 14:14:00 EDT, Height/Length Dosing, 111.4, kg, 02/18/24 14:14:00 EDT, Weight Dosing Start Date: 03/18/24 Status: Ordered hydroCHLOROthiazide 25 mg oral tablet (20 sources) Thiazide Diuretic Start: 01-26-2016 take 1 tablet by mouth once daily hydrochlorothiazide 25 mg Tab 25 mg = 1 tab(s), Oral, Daily, Refills(s) 0 Start Date: 01/26/16 Status: Ordered levothyroxine sodium 0.088 mg oral tablet (20 [...] 7days, # 40 tab(s), Refills(s) 0, Pharmacy: [facility]/pharmacy #[id number], 177.5, cm, 02/18/24 14:14:00 EDT, Height/Length Dosing, 111.4, kg, 02/18/24 14:14:00 EDT, Weight Dosing Start Date: 03/18/24 Status: Ordered rosuvastatin calcium 20 mg oral tablet (20 sources) HMG-CoA Reductase Inhibitor Start: 08-16-19 take 20 mg by mouth once daily Rosuvastatin Active 20 MG PO Daily November 20, 2023 12:00am Start: 11-24-2016 take 20 mg by mouth at bedtime Crestor 20 mg, Oral, Bedtime, Refills(s) 0, High cholesterol Start Date: 11/24/16 Status: Ordered tadalafil 20 mg oral tablet (6 sources) Phosphodiesterase 5 Inhibitor Start: 11-02-2023 Cialis 20 mg Tab 20 mg = 1 tab(s), Oral, As Directed, PRN erectile dysfunction, # 30 tab(s), Refills(s) 3, [id number] 178, cm, 11/02/23 11:57:00 EDT, Height/Length Dosing, 102, kg, 11/02/23 11:57:00 EDT, Weight Dosing Start Date: 11/02/23 Status: Ordered tamsulosin hydrochloride 0.4 mg oral capsule (20 sources) alpha-Adrenergic Jori Start: 01-07-2024 take 1 capsule by mouth twice daily Flomax 0.4 mg Cap 0.4 mg = 1 cap(s), Oral, BID, # 180 cap(s), Refills(s) 3, [id number], 178, cm, 11/02/23 11:57:00 EDT, Height/Length [...] BID, # 180 cap(s), Refills(s) 3, Pharmacy: [facility]/pharm[id number], 178, cm, 05/29/22 9:35:00 EST, Height/Length Dosing, 102.2, kg, 05/29/22 9:35:00 EST, Weight Dosing Start Date: 11/02/22 Status: Ordered take 1 capsule by [facility] every twenty-four hours in the morning tamsulosin (Flomax) 0.4 MG 24 hr capsule Take 0.4 mg by mouth in the morning and 0.4 mg before bedtime. Active ubidecarenone 10 mg oral capsule (2 sources) take 1 capsule by mouth in the morning coenzyme Q-10 10 MG capsule Take 10 mg by mouth in the morning. Active vitamin b6 100 mg oral tablet (3 sources) Start: 02-18-2024 take 100 mg by [...] in contact with skin] Onset: 09-03-2015 Episodic Calculus of urinary tract (20 sources) Kidney stone; Translations: [Calculus of kidney] Onset: 07-10-2014 Episodic Comment on above: in 2012 Conditions associated with dizziness or vertigo (2 sources) Benign paroxysmal vertigo, bilateral Episodic Diabetes mellitus without complication (9 sources) Other abnormal glucose; Translations: [Abnormal glucose level] Onset: 06-25-2022 Episodic Disorders of lipid metabolism (20 sources) Hyperlipidemia; Translations: [Hyperlipidemia, unspecified] Onset: 07-10-2014 04-14-2020 Chronic Essential hypertension (20 sources) Essential (primary) hypertension; Translations: [Essential hypertension] Onset: 02-23-2016 Chronic Genitourinary symptoms and ill-defined conditions (16 sources) Microscopic hematuria; Translations: [Nocturia] Onset: 05-27-2023 04-21-2021 Episodic Hyperplasia of prostate (20 sources) Benign prostatic [...] pulmonary nodule Episodic Other male genital disorders (6 sources) Male erectile dysfunction, unspecified; Translations: [Erectile dysfunction] Onset: 11-02-2023 Chronic Other non-epithelial cancer of skin (8 sources) History of malignant neoplasm of skin; Translations: [Personal history of other malignant neoplasm of skin] Onset: 05-27-2023 04-14-2020 Episodic Other nutritional; endocrine; and metabolic disorders (8 sources) Obese class I; Translations: [Body mass index (BMI) 34.0-34.9, adult] Chronic Other nutritional; endocrine; and metabolic disorders (16 sources) Obese class II; Translations: [Body mass index (BMI) 36.0-36.9, adult] Onset: 07-19-2018 Chronic Other nutritional; endocrine; and metabolic disorders (8 sources) Obesity; Translations: [Obesity, unspecified] Onset: 07-10-2014 Chronic Other nutritional; endocrine; and metabolic disorders (8 sources) History of hypercholesterolemia; Translations: [Personal history of other endocrine, nutritional and metabolic disease] Onset: 05-27-2023 11-24-2016 Episodic Other screening for suspected conditions (not mental disorders or infectious disease) (10 sources) Raised prostate specific antigen; Translations: [Elevated prostate specific antigen [PSA]] Onset: 05-27-2023 04-14-2020 Episodic Other upper respiratory disease (8 [...] COVID-19; Translations: [Disease caused by 2019-nCoV] Onset: 05-20-2022 Past or Other Problems Problem Classification Problem [...] sign of loosening, fracture or catastrophic wear. [facility] Radiology Study observation (narrative) [facility] Surgical Pathology Reporton 03-24-2024 Surgical Pathology Report [address] [address]- Surgical Pathology Report Collected Date/Time: 03/18/2024 09:43 EDT Pathologist: Brendan Robles MD Received Date/Time: 03/18/2024 11:24 EDT Bunny Hewitt DO, DO, David A 07 Surgical Pathology Report - 03/24/2024 14:15 EDT - Auth (Verified) Final Diagnosis RIGHT HIP, BONE AND SOFT TISSUE, RIGHT TOTAL HIP ARTHROPLASTY: - Right femoral head with degenerative changes consistent with osteoarthritis. (Electronic Signature) Yan. Margaret MD 03/24/2024 14:15 Clinical Information Pre-Op Diagnosis: [...] cm. Adjacent to this area is a cruz/red cystic area measuring 0.7 x 0.4 cm. Also received in the container are multiple fragments of cruz/light yellow/reddish-brown bone and soft tissue measuring in aggregate 8.5 x 7.5 x 5 cm. Specimen is submitted in two cassettes: 1 - Soft tissue 2 - Bone after decalcification (DC) DC:[facility] Microscopic Description Microscopic examination performed unless gross only specified. Normal [facility] Comment on above: Performed By: #### 4 [id number] #### [facility] [address] [place] [address] Main OR Intraoperative Recor don 03-20-2024 Main OR Intraoperative Record Main OR Intraoperative Record IntraOp Document Type FT Summary Primary Physician: Bunny Hewitt DO Finalized Date/Time: 03/20/24 10:47:20 Pt. Name: GERRY LAY./Sex: 1950 Male Med Rec #: [id number] Physician: Bunny Hewitt DO Financial #: [id number] Pt. Type: A Room/Bed: [place] [address] Admit/Disch: 03/18/24 05:49:12 - 03/18/24 14:50:00 Institution: Case Times FT Entry 1 Patient Times In Room 03/18/24 08:32:00 Out Room 03/18/24 10:31:00 Procedure Times Start 03/18/24 09:09:00 Stop 03/18/24 10:24:00 Anesthesia Times Start 03/18/24 08:32:00 Stop 03/18/24 10:31:00 Block Timeout w/ 03/18/24 08:15:00 Anesthesia Last Modified By: Homar STEPHENSON, Harika Aguilera 03/18/24 10:31:36 General Comments: block by dr veloz, assisted by danika sher rn. heart rate 67, spo2 99% on 2lpm o2 via nasal cannula. colton oleary 03/20/24 Chart opened to review and send charges LRoth CSFA Case Attendance FT Entry 1 Entry 2 Entry 3 Case Attendee Daniel OHARA, Regino Hewitt DO, Bunny Cisneros CONTROLLER MECHANIC, Verna Hi Role Performed Anesthesiologist Surgeon - Primary CONTROLLER MECHANIC/SA Special Needs Librarian Time In 03/18/24 08:32:00 03/18/24 08:58:00 03/18/24 [...] Case Attendee Homar STEPHENSON, Nohemi Bright CST, Gypsy Maldonado Role Performed French Tutor - Primary Scrub - Primary Staff - [...] Last Modified By: Homar RN, Harika Graf RNHarika 03/18/24 10:31:37 03/18/24 10:31:37 General Comments: mendel spence, also in attendance. colton olearyprogramming intern Protocols FT Pre-Care Text: Implements protective measures [...] C, Crosby RN, Maryuri Albright Sydney A, Roth CST, Ila Hebert Kendall R, Letrondo, Alfons Ii [...] 03/18/24 0 (more content not included)... Normal [facility] XR Hip 1 View Right + [...] mGy = na DAP = na Normal [facility] Operative Reporton Operative Report Operative Report SURGERY DATE: 03/18/2024 FINISHING POWDER PRESS OPERATOR: Verna Cisneros C.F.A. PREOPERATIVE DIAGNOSIS: Right hip osteoarthritis POSTOPERATIVE DIAGNOSIS: Right hip osteoarthritis OPERATION: Right hip robotic-assisted total hip arthroplasty using Andrew, posterolateral approach ANESTHESIA: Spinal as well as fascia iliaca block ANESTHESIOLOGIST: Regino Sanchez CCamilaA.ACamila ESTIMATED BLOOD LOSS: 300 mL INTRAVENOUS FLUIDS: Please see operative record SPECIMEN: Bone and soft tissue DRAINS: None COMPLICATIONS: None IMPLANT: Mendel Total Hip System with a size 56 [...] arthrosis. Total hip arthroplasty is done with buddhism of limb stability, alignment and length. This is done with the [employer] robotic platform. The patient did tolerate the [...] the field. This is seated using the [employer] robotic assist. Adequate seating is identified. The [...] dried trunnion. The hip is located with buddhism of limb stability, alignment and the length. The procedure is deemed adequate and complete. The checkpoints are removed individually. [id number] is utilized for the posterior capsule, piriformis, [...] #2 Quill (more content not included)... Normal [facility] Comment on above: Result Comment: Elec tronically Signed By: Bunny Hewitt DO\Camilabr\Date and Time Signed: 03/19/24 07:15 EDT ABO/Rhon 03-18-2024 ABO/Rh Positive Invalid Interpretation Code [facility] Comment on above: Performed By: #### 2 [id number] #### [facility] [address] [place] [address] ABO/Rh History Checkon 03-18 ABO/Rh History Check Verified Hx Blood Type Normal [facility] Comment on above: Performed By: #### 1 [id number] #### [facility] [address] [place] [address] ABSCon 03-18-2024 ABSC Gel Interp Negative Normal [facility] Comment on above: Performed By: #### 1 [id number] ####[facility] [address] [place] [address] BLOOD BANKOrdered By: Raya Ames on 03-18-2024 ABO/Rh Interp Positive Invalid Interpretation Code [facility] BB Subsection ABSC Gel Interp Negative (03/18/24 6:35 AM) Normal [facility] BB Subsection Blood Bank ID#on 03-18-2024 BBID# [id number] Invalid Interpretation Code [facility] Comment on above: Performed By: #### 1 [id number] #### [facility] [address] [place] [address] Discharge Instructionson Discharge Instructions Discharge Instructions GERRY [...] NATHAN, Lupe Phan Where: [facility] [address] [place] [address]- New Follow Up Appointments after Discharge Follow Up with Bunny Hewitt When: 04/16/2024 02:30 PM EDT Comments: Appointment has already been scheduled. Call for any problems. Where: [address] [place] [address]- Business (1) Medications What How Much When Why Instructions Next Dose New aspirin (aspirin 81 mg Oral EC Tab) 1 Tablets By Mouth 2 times a day Pickup at [facility]/pharmacy #[id number] New cefadroxil (cefadroxil 500 mg Cap) 1 Capsules By Mouth Every 12 hours Duration: 2 Days Pickup at [facility]/pharmacy #6193 New docusate (Colace 100 mg Cap) 1 Capsules By Mouth 2 times a day as needed for for constipation Pickup at [facility]/pharmacy #6177 New oxycodone (oxyCODONE 5 mg Tab) 1 Tablets By Mouth As Directed 1-2 po q4-6 hrs prn pain Dx: M16.11, Z96.641 Duration: 7days Pickup at [facility]/pharmacy #6177 Unchanged hydrochlorothiazide (hydrochlorothiazide 25 mg Tab) [...] Milligram By Mouth Every day Pharmacy Information [facility]/pharmacy #[id number]: [address], [place] [id number] [phone] Allergies Compazine (pt states family hx he [...] 0 DEGREE POLYETHYLENE INSERT 03/18/2024 [employer] [place], [place] [facility] DISCHARGE INSTRUCTIONS HIP REPLACEMENT [...] should not (more content not included)... Normal [facility] Comment on above: Result Comment: Elec tronically Signed By: Kalina STEPHENSON, Anila Perez\.br\Date and Time Signed: 03/18/24 11:32 EDT Main OR PACU I Recordon 03-09 Main OR PACU I Record Main OR PACU I Rec ord PACU Phase I Document Type FT Summary Primary Physician: Bunny Hewitt DO Finalized Date/Time: 03/18/24 12:29:03 Pt. Name: GERRY LAY/Sex: 1950 Male Med Rec #: [id number] Physician: Bunny Hewitt DO Financial #: [id number] Pt. Type: A Room/Bed: Admit/Disch: 03/18/24 05:49:12 [...] Signed By: Eden Avila RN 03/18/24 12:29 Normal [facility] Main OR PACU II Recordon Main OR PACU II Record Main OR PACU II Record PACU Phase II Document Type FT Summary Primary Physician: Singhsantana SLATER Bunny Puentes Finalized Date/Time: 03/18/24 14:53:34 Pt. Name: GERRY LAY Abram Steele./Sex: 1950 Male Med Rec #: [id number] Physician: Bunny Hewitt DO Financial #: [id number] Pt. Type: A Room/Bed: Admit/Disch: 03/18/24 05:49:12 - 03/18/24 14:50:00 Institution: [...] By: Anila Gilman RN 03/18/24 14:53 Normal [facility] Main OR Preoperative Recordo n 03-18-2024 Main OR Preoperative Record Main OR Preoperative Record PreOp Document Type FT Summary Primary Physician: Bunny Hewitt DO Finalized Date/Time: 03/18/24 09:30:10 Pt. Name: GERRY LAY /Sex: 1950 Male Med Rec #: [id number] Physician: Bunny Hewitt DO Financial #: [id number] Pt. Type: Room/Bed: [place] [address] Admit/Disch: 03/18/24 05:49:12 - Institution: Case Times [...] By: Harika Graf RN 03/18/24 09:30 Normal [facility] Proceduralon 03-18-2024 Procedural Procedural Patient: GERRY [...] Using maximal sterile barrier technique per current [facility] guidelines including hand hygeine, Guidance (Ultrasound [...] patient tolerated the procedure as expected. Normal [facility] CT Lower Extremity w/o Contr ast [...] MD Transcribed by: NICCI Technologist: WILMAR Normal [facility] XR Chest 2 Viewson XR Chest [...] mGy = na DAP = na Normal [facility] BMPon 02-18-2024 Anion gap [Moles/Vol] 12 mmol/L Normal 6-16 [facility] Comment on above: Performed By: #### 2 [id number] #### [facility] [address] [place] [address] Calcium [Mass/Vol] 9.8 mg/dL Normal 8.9-11.1 [facility] Comment on above: Performed By: #### 2 [id number] #### [facility] [address] [place] [address] Chloride [Moles/Vol] 104 mmol/L Normal 101-111 [facility] Comment on above: Performed By: #### 2 [id number] #### [facility] [address] [place] [address] CO2 [Moles/Vol] 28 mmol/L Normal 21-31 [facility] Comment on above: Performed By: #### 2 [id number] #### [facility] [address] [place] [address] Creatinine [Mass/Vol] 1.0 mg/dL Normal 0.5-1.3 [facility] Comment on above: Performed By: #### 2 [id number] #### [facility] [address] [place] [address] Glucose [Mass/Vol] 115 mg/dL Normal 55-199 [facility] Comment on above: Performed By: #### 2 [id number] #### [facility] [address] [place] [address] Potassium [Moles/Vol] 3.6 mmol/L Normal 3.5-5.3 [facility] Comment on above: Performed By: #### 2 [id number] #### [facility] [address] [place] [address] Sodium [Moles/Vol] 140 mmol/L Normal 135-145 [facility] Comment on above: Performed By: #### 2 [id number] #### [facility] [address] [place] [address] Urea nitrogen [Mass/Vol] 25 mg/dL High 5-21 [facility] Comment on above: Performed By: #### 2 [id number] #### [facility] [address] [place] [address] Urea nitrogen/Creatinine [Mass ratio] 25 No Units High 10-20 [facility] Comment on above: Performed By: #### 2 [id number] #### [facility] [address] [place] [address] CBC w/ Auto Diffon 4 Basophils/100 WBC (Bld) 0.7 % Normal 0.0-2.0 [facility] Comment on above: Performed By: #### 2 [id number] #### [facility] [address] [place] [address] Basophils/Leukocytes Auto (Bld) [Pure # fraction] 0.0 E9/L Normal 0.0-0.2 [facility] Comment on above: Performed By: #### 2 [id number] #### [facility] [address] [place] [address] Eosinophils (Bld) [#/Vol] 0.1 E9/L Normal 0.0-0.5 [facility] Comment on above: Performed By: #### 2 [id number] #### [facility] [address] [place] [address] Eosinophils/100 WBC (Bld) 1.2 % Normal 0.0-8.0 [facility] Comment on above: Performed By: #### 2 [id number] #### [facility] [address] [place] [address] Erythrocyte distribution width (RBC) [Ratio] 13.7 % Normal 10.9-14.2 [facility] Comment on above: Performed By: #### 2 [id number] #### [facility] [address] [place] [address] Hematocrit (Bld) [Volume fraction] 47.7 % Normal 37.7-49.0 [facility] Comment on above: Performed By: #### 2 [id number] #### [facility] [address] [place] [address] Hemoglobin (Bld) [Mass/Vol] 16.3 g/dL Normal 13.5-17.5 [facility] Comment on above: Performed By: #### 2 [id number] #### [facility] [address] [place] [address] Lymphocytes (Bld) [#/Vol] 1.3 E9/L Normal 1.0-4.0 [facility] Comment on above: Performed By: #### 2 [id number] #### [facility] [address] [place] [address] Lymphocytes/100 WBC (Bld) 20.2 % Normal 14.0-50.0 [facility] Comment on above: Performed By: #### 2 [id number] #### [facility] [address] [place] [address] MCH (RBC) [Entitic mass] 32.1 pg Normal 27.0-34.0 [facility] Comment on above: Performed By: #### 2 [id number] #### [facility] [address] [place] [address] MCHC (RBC) [Mass/Vol] 34.0 g/dL Normal 31.4-36.0 [facility] Comment on above: Performed By: #### 2 [id number] #### [facility] [address] [place] [address] MCV (RBC) [Entitic vol] 94.2 fL Normal 80.0-100.0 [facility] Comment on above: Performed By: #### 2 [id number] #### [facility] [address] [place] [address] Monocytes (Bld) [#/Vol] 0.7 E9/L Normal 0.2-1.0 [facility] Comment on above: Performed By: #### 2 [id number] #### [facility] [address] [place] [address] Neutrophils (Bld) [#/Vol] 4.2 E9/L Normal 2.0-7.5 [facility] Comment on above: Performed By: #### 2 [id number] #### [facility] [address] [place] [address] Neutrophils/100 WBC (Bld) 67.4 % Normal 36.0-75.0 [facility] Comment on above: Performed By: #### 2 [id number] #### [facility] [address] [place] [address] Platelet mean volume (Bld) [Entitic vol] 8.7 fL Normal 6.4-10.8 [facility] Comment on above: Performed By: #### 2 [id number] #### [facility] [address] [place] [address] Platelets (Bld) [#/Vol] 176.0 E9/L Normal 150.0-500.0 [facility] Comment on above: Performed By: #### 2 [id number] #### [facility] [address] [place] [address] RBC (Bld) [#/Vol] 5.1 E12/L Normal 4.3-5.9 [facility] Comment on above: Performed By: #### 2 [id number] #### [facility] [address] [place] [address] WBC corrected for nucl RBC Auto (Bld) [#/Vol] 6.2 E9/L Normal 4.0-11.0 [facility] Comment on above: Performed By: #### 2 [id number] #### [facility] [address] [place] [address] CHEMISTRYOrdered By: SYSTEM SYSTEM on 02-18-2024 Anion [...] 24 Bilirubin Ql (U) Negative Normal Negative [facility] Comment on above: Performed By: #### 4 [id number] #### [facility] [address] [place] [address] Clarity (U) Clear Normal Clear [facility] Comment on above: Performed By: #### 4 [id number] #### [facility] [address] [place] [address] Color (U) Light-Yellow Normal Yellow [facility] Comment on above: Result Comment: Micr oscopic readings are only performed on those samples that meet specific criteria set forth by [facility]. Performed By: #### 4 [id number] #### [facility] [address] [place] [address] Glucose Ql (U) Negative Normal Negative [facility] Comment on above: Performed By: #### 4 [id number] #### [facility] [address] [place] [address] Hemoglobin Auto test strip (U) [Mass/Vol] Trace Abnormal Negative [facility] Comment on above: Performed By: #### 4 [id number] #### [facility] [address] [place] [address] Ketones Auto test strip Ql (U) Negative Normal Negative [facility] Comment on above: Performed By: #### 4 [id number] #### [facility] [address] [place] [address] Leukocyte esterase Auto test strip Ql (U) Negative Normal Negative [facility] Comment on above: Performed By: #### 4 [id number] #### [facility] [address] [place] [address] Nitrite Auto test strip Ql (U) Negative Normal Negative [facility] Comment on above: Performed By: #### 4 [id number] #### [facility] [address] [place] [address] pH (U) 5.0 [pH] Invalid Interpretation Code 5.0-9.0 [facility] Comment on above: Performed By: #### 4 [id number] #### [facility] [address] [place] [address] Protein Ql (U) Negative Normal Negative [facility] Comment on above: Performed By: #### 4 [id number] #### [facility] [address] [place] [address] Specific gravity (U) [Rel density] 1.023 Invalid Interpretation Code 1.005-1.030 [facility] Comment on above: Performed By: #### 4 [id number] #### [facility] [address] [place] [address] Urobilinogen (U) [Mass/Vol] Negative Normal Negative [facility] Comment on above: Performed By: #### 4 [id number] #### [facility] [address] [place] [address] Type of Urine collection method Clean Catch Normal [facility] Comment on above: Performed By: #### 4 [id number] #### [facility] [address] [place] [address] URINALYSISOrdered By: SYSTEM SYSTEM on 02-18-2024 Bilirubin Ql (U) Negative Normal Negativemg/ d L [facility] UA Auto SS Clarity (U) Clear (02/18/24 10:07 AM) Normal Clear [facility] UA Auto SS Color (U) Light-Yellow 1 (02/18/24 10:07 AM) Normal Yellow [facility] UA Auto SS Comment on above: Interpretive Data: M icroscopic readings are only performed on those samples that meet specific criteria set forth by [facility]. Glucose Ql (U) Negative Normal Negativemg/d L [facility] UA Auto SS Hemoglobin Auto test strip [...] AM) Invalid Interpretation Code 5.0 - 9.0 [facility] UA Auto SS Protein Ql (U) Negative Normal Negativemg/d L [facility] UA Auto SS Specific gravity (U) [Rel density] 1.023 *NA* (02/18/24 10:07 AM) Invalid Interpretation Code 1.005 - 1.030 [facility]A Auto SS Urobilinogen (U) [Mass/Vol] Negative Normal Negativemg/d L [facility] UA Auto SS URINALYSISOrdered By: Katie Uriostegui on 02-18-2024 UA Spec Desc Clean Catch (02/18/24 10:07 AM) Normal [facility] UA Auto SS eGFRon 02-18-2024 eGFR 79 mL/min/1.73 m2 Normal >=59 [facility] Comment on above: Order Comment: Order added by Discern Expert. Performed By: #### 1 [id number] #### [facility] [address] [place] [address] Lab Reportson 12-04-2023 Lab Reports [id number] 0TIFF Normal [facility] Patient Educationon 11-02-19 Patient Education Urology [...] these instructions at home: Medicines ? Take qxni-sqt-syqnfnz and prescription medicines only as told by [...] include cig (more content not included)... Normal [facility] Urology Office/Clinic Noteon 11-02-2023 Urology Office/Clinic Note Chief Complaint 1yr PSA & KUB HPI Staff 16 month f/u with PSA and KUB. (pt went to [place] for 3m) Dx: kidney stone and BPH [...] Follow-up With When Contact Information DOUG NATHAN, Lupe Phan, URL [address] [place] [address]- Additional Instructions: 7 mos w/ PSA Patient [...] (Nausea present) (more content not included)... Normal [facility] Comment on above: Result Comment: Elec tronically Signed By: Lupe BEAVER MD\.br\Date and Time Signed: 11/02/23 13:20 EDT\.br\Electronically Co-Signed By: Adriana Crane\.br\Date and Time Co-Signed: 11/02/23 13:19 EDT [facility] 10-30-2023 Lab Reports [id number] 0TIFF Normal [facility] RAD - MISCon 10-30-2023 RAD - MISC [id number] 0TIFF Normal [facility] No Panel Informationon 10-28 Prostate Specific Antigen Total 3.70 ng/mL <=4.00 [facility] US carotid doppler BIon 06-08 US carotid doppler BI [facility] [address] Ultrasound Report Signed Patient: Gerry Lay MR#: [id number] : 1950 Acct:[id number] Age/Sex: 72 / M ADM Date: 06/21/23 Loc: Room: Type: [facility] Attending Dr: Sukhdeep Crockett DO Ordering [...] Mayo Sheikh M.D.06/22/2023 3:21 PM Dictation Location: RADDOC-04 Tech: Yen Estrella Transcribed By: ESE 06/22/23 152 Dictated By: Mayo Sheikh MD 06/22/23 152 Signed By: 06/22/23 152 [facility] Sandra CRE 06-21-2023 Creatinine [Mass/Vol] 1.3 mg/dL Normal 0.6-1.3 [facility] Comment on above: Result Comment: ER/E SD physician is notified/shown all ISTAT results. Critical values may be confirmed by laboratory testing if deemed necessary by ER attending doctor. Performed By: #### I SCRE #### [facility] [address] [place] [address] ISTAT GFR 58.368 Normal [facility] Comment on above: Result Comment: PERF ORMED BY: [place] [address] PATHOLOGIST CHROME PLATER LOGAN SERNA M.D. Performed By: #### I SCRE #### [facility] [address] [place] [address] MR head/brain wo/w conon MR head/brain wo/w con [facility] Main [place] [address] [place] [address] MRI Report Signed Patient: Gerry Lay MR#: [id number] : 1950 Acct:[id number] Age/Sex: 72 / M ADM Date: 06/21/23 Loc: MR Room: Type: [facility] Attending Dr: Sukhdeep Crockett DO Copies [...] Eloy Barnard M.D.06/21/2023 5:08 PM Dictation Location: [place] [address] Transcribed By: [facility] 06/21/23 170 Dictated By: Eloy Barnard II, MD 06/21/23 1646 Signed By: 06/21/23 170 [facility] US CAROTID ART BILon 12-15-2 022 US CAROTID ART LOUISE EXAMINATION: US [...] AIXA DURANT Date: 2022-06-21 23:19 Normal [facility] CBC AUTO DIFFon 06-21-2022 BASO # 0.1 103/ul Normal 0.0-0.1 [facility] Comment on above: Performed By: #### C BC ####[facility] [address] [place] [address]Dr. Giacomo Chambers Basophils/100 WBC (Bld) 0.9 % Normal 0.2-2.0 [facility] Comment on above: Performed By: #### C BC ####[facility] [address] [place], [place] [address]Dr. Giacomo Chambers EO # 0.2 103/ul Normal 0.0-0.7 [facility] Comment on above: Performed By: #### C BC ####[facility] [address] [place], [place] [address]Dr. Giacomo Chambers Eosinophils/100 WBC (Bld) 3.0 % Normal 0.9-7.0 [facility] Comment on above: Performed By: #### C BC ####[facility] [address] [place], [place] [address]Dr. Giacomo Chambers Erythrocyte distribution width (RBC) [Ratio] 12.7 % Normal 11.0-15.0 [facility] Comment on above: Performed By: #### C BC ####[facility] [address] [place], [place] [address]Dr. Zinastella Chambers Hematocrit (Bld) [Volume fraction] 48.4 % Normal 42.0-54.0 [facility] Comment on above: Performed By: #### C BC ####[facility] [address] [place], [place] [address]Dr. Giacomo Chambers Hemoglobin (Bld) [Mass/Vol] 16.1 g/dL Normal 14.0-18.0 [facility] Comment on above: Performed By: #### C BC ####[facility] [address] [place], [place] [address]Dr. Giacomo Chambers IG # 0.01 10e3/ul Normal 0.00-0.03 [facility] Comment on above: Performed By: #### C BC ####[facility] [address] [place], [place] [address]Dr. Giacomo Chambers IG % 0.2 % Normal 0.0-0.5 [facility] Comment on above: Performed By: #### C BC ####[facility] [address] [place], [place] [address]DrCamila Chambers LYMPH # 2.1 103/ul Normal 1.2-3.8 [facility] Comment on above: Performed By: #### C BC ####[facility] [address] [place] [address]DrCamila Chambers Lymphocytes/100 WBC (Bld) 36.7 % Normal 20.5-60.0 [facility] Comment on above: Performed By: #### C BC ####[facility] [address] [place] [address]DrCamila Chambers MANUAL DIFF REQ NO Normal [facility] Comment on above: Performed By: #### C BC ####[facility] [address] [place] [address]DrCamila Chambers MCH (RBC) [Entitic mass] 30.6 pg Normal 25.9-34.0 [facility] Comment on above: Performed By: #### C BC ####[facility] [address] [place], [place] [address]DrCamila Chambers MCHC (RBC) [Mass/Vol] 33.3 g/dL Normal 29.9-35.2 [facility] Comment on above: Performed By: #### C BC ####[facility] [address] [place], [place] [address]DrCamila Chambers MCV (RBC) [Entitic vol] 91.8 fL Normal 80.0-94.0 [facility] Comment on above: Performed By: #### C BC ####[facility] [address] [place], [place] [address]DrCamila Chambers MONO # 0.7 103/ul Normal 0.3-0.8 [facility] Comment on above: Performed By: #### C BC ####[facility] [address] [place] [address]DrCamila Chambers Monocytes/100 WBC (Bld) 12.1 % Critically high 1.7-12.0 [facility] Comment on above: Performed By: #### C BC ####[facility] [address] [place], [place] [address]DrCamila Chambers NEUT # 2.6 103/ul Normal 1.4-6.5 [facility] Comment on above: Performed By: #### C BC ####[facility] [address] [place] [address]DrCamila Chambers Neutrophils/100 WBC (Bld) 47.1 % Normal 43.0-75.0 [facility] Comment on above: Performed By: #### C BC ####[facility] [address] [place] [address]DrCamila Chambers Platelet mean volume (Bld) [Entitic vol] 10.0 fL Normal 9.5-13.5 [facility] Comment on above: Performed By: #### C BC ####[facility] [address] [place] [address]DrCamila Chambers PLT 188 103/ul Normal 150-450 [facility] Comment on above: Performed By: #### C BC ####[facility] [address] [place], [place] [address]DrCamila Chambers RBC 5.27 106/ul Normal 4.70-6.10 [facility] Comment on above: Performed By: #### C BC ####[facility] [address] [place], [place] [address]DrCamila Chambers WBC 5.6 103/ul Normal 4.0-11.0 [facility] Comment on above: Performed By: #### C BC ####[facility] [address] [place] [address]DrCamila Chambers FREE T4on 06-21-2022 Free T4 [Mass/Vol] 1.19 ng/dL Normal 0.76-1.46 [facility] Comment on above: Performed By: #### F T4 ####[facility] [address] [place], [place] [address]DrCamila Giacomo Chambers GLYCOHEMOGLOBIN A1Con 2021 ADA RECOMMENDATION SEE BELOW Normal [facility] Comment on above: Result Comment: ADA RECOMMENDED LIMIT 4.0 - 6.0 ADA THERAPEUTIC TARGET < 7.0 ACTION SUGGESTED > 7.0 Performed By: #### A 1C ####[facility] [address] [place], [place] [address]LhDr. Giacomo Chambers Glucose [Mass/Vol] 134 mg/dL Normal [facility] Comment on above: Performed By: #### A 1C ####[facility] [address] [place], [place] [address]AoDr. Giacomo Chambers HbA1c (Bld) [Mass fraction] 6.3 % Critically high 4.5-6.2 [facility] Comment on above: Performed By: #### A 1C ####[facility] [address] [place], [place] [address]VjDr. Giacomo Chambers LIPID PROFILEon 06-21-2022 CHOL-HDL RATIO NORM SEE BELOW Normal [facility] Comment on above: Result Comment: 3.3 - 4.4 LOW RISK 4.4 - 7.1 AVERAGE RISK 7.1 - 11.0 MODERATE RISK >11.0 HIGH RISK Performed By: #### L IPID CMP, TSH #### [facility] [address] [place] [address] [address] Giacomo Chambers Cholesterol [Mass/Vol] 162 mg/dL Normal <=200 [facility] Comment on above: Performed By: #### L IPID CMP, TSH #### [facility] [address] [place] [address] [address] Giacomo Chambers Cholesterol in HDL [Mass/Vol] 55 mg/dL Normal 40-60 [facility] Comment on above: Performed By: #### L IPID CMP, TSH #### [facility] [address] [place] [address] [address] Giacomo Chambers Cholesterol in LDL [Mass/Vol] 77.6 mg/dL Normal [facility] Comment on above: Performed By: #### L IPID CMP, TSH #### [facility] [address] [place] [address] [address] Giacomo Chambers Cholesterol.total/Cho lesterol in HDL [Mass ratio] 2.9 {ratio} Normal [facility] Comment on above: Performed By: #### L IPID, CMP, TSH #### [facility] [address] [place] [address] [address] Giacomo Chambers HDL NORMAL > or = 60 mg/dl - LO W CARDIOVASCULAR RISK <40 mg/dl - HIGH CARDIOVASCULAR RISK Normal [facility] Comment on above: Performed By: #### L IPID, CMP, TSH #### [facility] [address] [place] [address] [address] Giacomo Chambers LDL CALC NORMAL SEE BELOW Normal [facility] Comment on above: Result Comment: <100 mg/dl OPTIMAL 100 - 129 mg/dl NEAR OR ABOVE OPTIMAL 130 - 159 mg/dl BORDERLINE HIGH 160 - 189 mg/dl HIGH >190 mg/dl VERY HIGH Performed By: #### L IPID, CMP, TSH #### [facility] [address] [place] [address] [address] Giacomo Chambers Triglyceride [Mass/Vol] 147 mg/dL Normal <=150 [facility] Comment on above: Performed By: #### L IPID, CMP, TSH #### [facility] [address] [place] [address] [address] Giacomo Chambers VLDL CALC 29.4 mg/dL Normal [facility] Comment on above: Performed By: #### L IPID, CMP, TSH #### [facility] [address] [place] [address] [address] Giacomo Chambers MICROALBUMIN, RAND URon 06-08 mALB 1.6 mg/L Normal <=30.0 [facility] Comment on above: Performed By: #### M ALBR #### [facility] [address] [place] [address] Dr. Giacomo Chambers PROF 14(COMP METB)on 022 Albumin [Mass/Vol] 4.0 g/dL Normal 3.4-5.0 [facility] Comment on above: Performed By: #### L IPID, CMP, TSH #### [facility] [address] [place] [address] [address] Giacomo Chambers Albumin/Globulin [Mass ratio] 1.1 {ratio} Normal [facility] Comment on above: Performed By: #### L IPID, CMP, TSH #### [facility] [address] [place] [address] [address] Giacomo Chambers ALP [Catalytic activity/Vol] 67 U/L Normal 46-116 [facility] Comment on above: Performed By: #### L IPID, CMP, TSH #### [facility] [address] [place] [address] Dr. Giacomo Chambers ALT [Catalytic activity/Vol] 34 U/L Normal 16-63 [facility] Comment on above: Performed By: #### L IPID, CMP, TSH #### [facility] [address] [place] [address] Dr. Giacomo Chambers Anion gap [Moles/Vol] 11.0 mmol/L Normal [facility] Comment on above: Performed By: #### L IPID, CMP, TSH #### [facility] [address] [place] [address] Dr. Giacomo Chambers AST [Catalytic activity/Vol] 28 U/L Normal 15-37 [facility] Comment on above: Performed By: #### L IPID, CMP, TSH #### [facility] [address] [place] [address] Dr. Giacomo Chambers Bilirubin [Mass/Vol] 0.9 mg/dL Normal 0.2-1.0 [facility] Comment on above: Performed By: #### L IPID, CMP, TSH #### [facility] [address] [place] [address] Dr. Giacomo Chambers Calcium [Mass/Vol] 9.4 mg/dL Normal 8.5-10.1 [facility] Comment on above: Performed By: #### L IPID, CMP, TSH #### [facility] [address] [place] [address] Dr. Giacomo Chambers Chloride [Moles/Vol] 102 mmol/L Normal 98-107 [facility] Comment on above: Performed By: #### L IPID, CMP, TSH #### [facility] [address] [place] [address] Dr. Giacomo Chambers CO2 [Moles/Vol] 31.2 mmol/L Normal 21.0-32.0 [facility] Comment on above: Performed By: #### L IPID, CMP, TSH #### [facility] [address] [place] [address] [address] Giacomo Chambers Creatinine [Mass/Vol] 1.13 mg/dL Normal 0.70-1.30 [facility] Comment on above: Performed By: #### L IPID, CMP, TSH #### [facility] [address] [place] [address] [address] Giacomo Chambers EGFR-AF TURKMEN >60 Normal >=60 [facility] Comment on above: Performed By: #### L IPID, CMP, TSH #### [facility] [address] [place] [address] [address] Giacomo Chambers EGFR-NON AF TURKMEN >60 Normal >=60 [facility] Comment on above: Performed By: #### L IPID, CMP, TSH #### [facility] [address] [place] [address] [address] Giacomo Chambers Globulin (S) [Mass/Vol] 3.5 g/dL Normal [facility] Comment on above: Performed By: #### L IPID, CMP, TSH #### [facility] [address] [place] [address] [address] Giacomo Chambers Glucose [Mass/Vol] 121 mg/dL Critically high 74-106 [facility] Comment on above: Performed By: #### L IPID, CMP, TSH #### [facility] [address] [place] [address] [address] Giacomo Chambers Potassium [Moles/Vol] 4.2 mmol/L Normal 3.5-5.1 [facility] Comment on above: Performed By: #### L IPID, CMP, TSH #### [facility] [address] [place] [address] [address] Giacomo Chambers Protein [Mass/Vol] 7.5 g/dL Normal 6.4-8.2 [facility] Comment on above: Performed By: #### L IPID, CMP, TSH #### [facility] [address] [place] [address] [address] Giacomo Chambers Sodium [Moles/Vol] 140 mmol/L Normal 136-145 [facility] Comment on above: Performed By: #### L IPID, CMP, TSH #### [facility] [address] [place] [address] [address] Giacomo Chambers Urea nitrogen [Mass/Vol] 23.0 mg/dL Critically high 7.0-18.0 [facility] Comment on above: Performed By: #### L IPID, CMP, TSH #### [facility] [address] [place] [address] [address] Giacomo Chambers Urea nitrogen/Creatinine [Mass ratio] 20.4 mg/mg Normal [facility] Comment on above: Performed By: #### L IPID, CMP, TSH #### [facility] [address] [place] [address] Dr. Giacomo Chambers TSHon 06-21-2022 TSH 2.946 uIU/mL Normal 0.358-3.740 [facility] Comment on above: Performed By: #### L IPID, CMP, TSH #### [facility] [address] [place] [address] [address] Giacomo Chambers XR KUB 1 VIEWon [...] AIXA DURANT Date: 2022-05-03 22:01 Normal [facility] CBC AUTO DIFFon 12-07-2021 BASO # 0.1 103/ul Normal 0.0-0.1 [facility] Comment on above: Performed By: #### C BC #### [facility] [address] [place] [address] [address] Giacomo Chambers Basophils/100 WBC (Bld) 0.7 % Normal 0.2-2.0 [facility] Comment on above: Performed By: #### C BC #### [facility] [address] [place] [address] [address] Giacomo Chambers EO # 0.2 103/ul Normal 0.0-0.7 [facility] Comment on above: Performed By: #### C BC #### [facility] [address] [place] [address] Dr. Giacomo Chambers Eosinophils/100 WBC (Bld) 2.7 % Normal 0.9-7.0 [facility] Comment on above: Performed By: #### C BC #### [facility] [address] [place] [address] Dr. Giacomo Chambers Erythrocyte distribution width (RBC) [Ratio] 12.4 % Normal 11.0-15.0 [facility] Comment on above: Performed By: #### C BC #### [facility] [address] [place] [address] Dr. Giacomo Chambers Hematocrit (Bld) [Volume fraction] 47.5 % Normal 42.0-54.0 [facility] Comment on above: Performed By: #### C BC #### [facility] [address] [place] [address] Dr. Giacomo Chambers Hemoglobin (Bld) [Mass/Vol] 15.5 g/dL Normal 14.0-18.0 [facility] Comment on above: Performed By: #### C BC #### [facility] [address] [place] [address] Dr. Giacomo Chambers IG # 0.02 10e3/ul Normal 0.00-0.03 [facility] Comment on above: Performed By: #### C BC #### [facility] [address] [place] [address] Dr. Giacomo Chambers IG % 0.3 % Normal 0.0-0.5 [facility] Comment on above: Performed By: #### C BC #### [facility] [address] [place] [address] Dr. Giacomo Chambers LYMPH # 2.1 103/ul Normal 1.2-3.8 [facility] Comment on above: Performed By: #### C BC #### [facility] [address] [place] [address] Dr. Giacomo Chambers Lymphocytes/100 WBC (Bld) 30.9 % Normal 20.5-60.0 [facility] Comment on above: Performed By: #### C BC #### [facility] [address] [place] [address] Dr. Giacomo Chambers MANUAL DIFF REQ NO Normal [facility] Comment on above: Performed By: #### C BC #### [facility] [address] [place] [address] Dr. Giacomo Chambers MCH (RBC) [Entitic mass] 31.6 pg Normal 25.9-34.0 [facility] Comment on above: Performed By: #### C BC #### [facility] [address] [place] [address] Dr. Giacomo Chambers MCHC (RBC) [Mass/Vol] 32.6 g/dL Normal 29.9-35.2 [facility] Comment on above: Performed By: #### C BC #### [facility] [address] [place] [address] Dr. Giacomo Chambers MCV (RBC) [Entitic vol] 96.7 fL Critically high 80.0-94.0 [facility] Comment on above: Performed By: #### C BC #### [facility] [address] [place] [address] Dr. Giacomo Chambers MONO # 0.7 103/ul Normal 0.3-0.8 [facility] Comment on above: Performed By: #### C BC #### [facility] [address] [place] [address] Dr. Giacomo Chambers Monocytes/100 WBC (Bld) 10.5 % Normal 1.7-12.0 [facility] Comment on above: Performed By: #### C BC #### [facility] [address] [place] [address] Dr. Giacomo Chambers NEUT # 3.7 103/ul Normal 1.4-6.5 [facility] Comment on above: Performed By: #### C BC #### [facility] [address] [place] [address] Dr. Giacomo Chambers Neutrophils/100 WBC (Bld) 54.9 % Normal 43.0-75.0 [facility] Comment on above: Performed By: #### C BC #### [facility] [address] [place] [address] Dr. Giacomo Chambers Platelet mean volume (Bld) [Entitic vol] 9.9 fL Normal 9.5-13.5 [facility] Comment on above: Performed By: #### C BC #### [facility] [address] [place] [address] Dr. Giacomo Chambers PLT 208 103/ul Normal 150-450 [facility] Comment on above: Performed By: #### C BC #### [facility] [address] [place] [address] Dr. Giacomo Chambers RBC 4.91 106/ul Normal 4.70-6.10 [facility] Comment on above: Performed By: #### C BC #### [facility] [address] [place] [address] Dr. Giacomo Chambers WBC 6.7 103/ul Normal 4.0-11.0 [facility] Comment on above: Performed By: #### C BC #### [facility] [address] [place] [address] Dr. Giacomo Chambers FREE T4on 12-07-2021 Free T4 [Mass/Vol] 1.12 ng/dL Normal 0.76-1.46 [facility] Comment on above: Performed By: #### F T4 #### [facility] [address] [place] [address] Dr. Giacomo Chambers PROF CHEM 8 (BAS METB)on Anion gap [Moles/Vol] 13.0 mmol/L Normal [facility] Comment on above: Performed By: #### B MP, TSH #### [facility] [address] [place] [address] Dr. Giacomo Chambers Calcium [Mass/Vol] 9.5 mg/dL Normal 8.5-10.1 [facility] Comment on above: Performed By: #### B MP, TSH #### [facility] [address] [address] [address] Giacomo Chambers Chloride [Moles/Vol] 104 mmol/L Normal 98-107 [facility] Comment on above: Performed By: #### B MP, TSH #### [facility] [address] [address] [address] Giacomo Chambers CO2 [Moles/Vol] 32.0 mmol/L Normal 21.0-32.0 [facility] Comment on above: Performed By: #### B MP, TSH #### [facility] [address] [address] [address] Giacomo Chambers Creatinine [Mass/Vol] 1.06 mg/dL Normal 0.70-1.30 [facility] Comment on above: Performed By: #### B MP, TSH #### [facility] [address] [address] [address] Giacomo Chambers EGFR-AF TURKMEN 60 mL/min/1.73m2 Normal >=60 [facility] Comment on above: Performed By: #### B MP, TSH #### [facility] [address] [address] [address] Giacomo Chambers EGFR-NON AF TURKMEN 60 mL/min/1.73m2 Normal >=60 [facility] Comment on above: Performed By: #### B MP, TSH #### [facility] [address] [address] [address] Giacomo Chambers Glucose [Mass/Vol] 94 mg/dL Normal 74-106 [facility] Comment on above: Performed By: #### B MP, TSH #### [facility] [address] [address] [address] Giacomo Chambers Potassium [Moles/Vol] 4.0 mmol/L Normal 3.5-5.1 [facility] Comment on above: Performed By: #### B MP, TSH #### [facility] [address] [address] [address] Giacomo Chambers Sodium [Moles/Vol] 145 mmol/L Normal 136-145 [facility] Comment on above: Performed By: #### B MP, TSH #### [facility] [address] [address] [address] Giacomo Chambers Urea nitrogen [Mass/Vol] 17.0 mg/dL Normal 7.0-18.0 [facility] Comment on above: Performed By: #### B MP, TSH #### [facility] [address] [place] [address] Dr. Giacomo Chambers Urea nitrogen/Creatinine [Mass ratio] 16.0 mg/mg Normal [facility] Comment on above: Performed By: #### B MP, TSH #### [facility] [address] [place] [address] Dr. Giacomo Chambers TSHon 12-07-2021 TSH 4.398 uIU/mL Critically high 0.358-3.740 [facility] Comment on above: Performed By: #### B MP, TSH #### [facility] [address] [place] [address] Dr. Giacomo Chambers TSH RANGE SEE BELOW Normal [facility] Comment on above: Result Comment: <0.3 4 UIU/ml HYPERTHYROID 0.34-5.60 UIU/ml EUTHYROID >5.60 UIU/ml HYPOTHYROID Performed By: #### B MP, TSH #### [facility] [address] [place] [address] Dr. Giacomo Chambers [facility]on [facility]06 SARS-CoV-2 (COVID-19) RNA RAHDA+probe Ql (Unsp spec) Detected Critically abnormal NOT DETECTED [facility] Comment on above: Result Comment: This test is not yet approved or cleared by the [place] FDA. When there are no FDA-approved or cleared tests available, and other criteria are met, FDA can make tests available under an emergency access mechanism called an Emergency Use Authorization (EUA). The EUA for this test is supported by the Roving Frame Tender of Health and Human Service's (HHS's) declaration [...] be used). Performed By: #### C VDTBH ####[facility] [address] [address]Dr. Giacomo Chambers CALCULI, URINARYon 2 2,[address] [facility] Comment on above: Performed By: #### C ALCULI ####[facility] [address] [place], [place] [address]Dr. Giacomo Chambers Ammonium Acid Urate Normal [facility] Comment on above: Performed By: #### C ALCULI ####[facility] [address] [place], [place] [address]Dr. Giacomo Chambers Bilirubin Ql (U) Normal [facility] Comment on above: Performed By: #### C ALCULI ####[facility] [address] [place], [place] [address]Dr. Giacomo Chambers Ca Oxalate Dihydrate Normal [facility] Comment on above: Performed By: #### C ALCULI ####[facility] [address] [place], [place] [address]Dr. Giacomo Chambers CaHPO4 (Brushite) Normal [facility] Comment on above: Performed By: #### C ALCULI ####[facility] [address] [place], [place] [address]Dr. Giacomo Chambers Calcium Bilirubinate Normal [facility] Comment on above: Performed By: #### C ALCULI ####[facility] [address] [place], [place] [address]Dr. Giacomo Chambers Calcium Carbonate Normal [facility] Comment on above: Performed By: #### C ALCULI ####[facility] Dar[address]wt[address]ss[address] [place], [place] [address]Dr. Giacomo Chambers Calcium Oxalate Monohydrate 100 % Normal [facility] Comment on above: Performed By: #### C ALCULI ####[facility] Akpenks[address] [place], [place] [address]Dr. Giacomo Chambers Calcium Palmitate Normal [facility] Comment on above: Performed By: #### C ALCULI ####[facility] [address] [address]Dr. Giacomo Chambers Calcium Phosphate Normal [facility] Comment on above: Performed By: #### C ALCULI ####[facility] [address] [address]Dr. Giacomo Chambers Calcium Stearate Normal [facility] Comment on above: Performed By: #### C ALCULI ####[facility] [address] [place], [place] [address]Dr. Giacomo Chambers Carbonate Apatite Normal [facility] Comment on above: Performed By: #### C ALCULI ####[facility] [address]sp[address]vc[address] [place], [place] [address]Dr. Giacomo Chambers Cellular Material Normal [facility] Comment on above: Performed By: #### C ALCULI ####[facility] [address]esvas[address] [place], [place] [address]Dr. Giacomo Chambers Cholesterol Normal [facility] Comment on above: Performed By: #### C ALCULI ####[facility] H[address] [place], [place] [address]Dr. Giacomo Chambers Color (U) Brown Normal [facility] Comment on above: Performed By: #### C ALCULI ####[facility] [address] [address]Dr. Giacomo Chambers Comment Normal [facility] Comment on above: Performed By: #### C ALCULI ####[facility] Ptk[address]up[address] [place], [place] [address]Dr. Giacomo Chambers Comment Comment Normal [facility] Comment on above: Result Comment: Calc ulus received in liquid. Wet calculi must be dried before analysis, which delays reporting of results. Leaving calculi in liquid (such as water, saline, blood, urine) may lead to changes in composition. Performed By: #### C ALCULI ####[facility] Kywlrzmbcd[address] [place], [place] [address]Dr. Giacomo Chambers Comment: Comment Normal [facility] Comment on above: Result Comment: Phys ician questions regarding Calculi Analysis contact [facility] at: [phone]. Performed By: #### C ALCULI ####[facility] [address] [place], [place] [address]Dr. Giacomo Chambers Composition Comment Normal [facility] Comment on above: Result Comment: Perc entage (Represents the % composition) Performed By: #### C ALCULI ####[facility] Brbaajkw[address] [place], [place] [address]Dr. Giacomo Chambers Cystine Normal [facility] Comment on above: Performed By: #### C ALCULI ####[facility] Lzqtcnyvez[address] [place], [place] [address]Dr. Giacomo Chambers Disclaimer: Comment Normal [facility] Comment on above: Result Comment: This test was developed and its performance characteristics determined by [facility]. It has not been cleared or approved by the Food and Drug Administration. Performed By: #### C ALCULI ####[facility] Obsegftvzs[address] [place], [place] [address]Dr. Giacomo Chambers Dried Blood Normal [facility] Comment on above: Performed By: #### C ALCULI ####[facility] Ynbpw[address] [place], [place] [address]Dr. Giacomo Chambers Drug or Metabolite Normal [facility] Comment on above: Performed By: #### C ALCULI ####[facility] [address] [place], [place] [address]Dr. Giacomo Chambers Hydroxyapatite Normal [facility] Comment on above: Performed By: #### C ALCULI ####[facility] Herqhcdgtq[address] [place], [place] [address]Dr. Giacomo Chambers Mg NH4 PO4 (Struvite) Normal [facility] Comment on above: Performed By: #### C ALCULI ####[facility] Zxtmwlxsiz[address] [place], [place] [address]Dr. Giaocmo Chambers MgHPO4 (Newberyite) Normal [facility] Comment on above: Performed By: #### C ALCULI ####[facility] Pspuewbxvy[address] [place], [place] [address]Dr. Giacomo Chambers Other component(s) Normal [facility] Comment on above: Performed By: #### C ALCULI ####[facility] [address] [address]Dr. Giacomo Chambers PDF . Normal [facility] Comment on above: Performed By: #### C ALCULI ####[facility] [address] [address]Dr. Giacomo Chambers Photo Comment Normal [facility] Comment on above: Result Comment: Melissa diehl will follow under a separate cover Performed By: #### C ALCULI ####[facility] [address] [address]Dr. Giacomo Chambers Please note: Comment Normal [facility] Comment on above: Result Comment: Calc derek report will follow via computer, mail or senior infrastructure engineer delivery. Performed By: #### C ALCULI ####[facility] Wn[address]jgoi[address] [place], [place] [address]Dr. Giacomo Chambers Size 4x[address] [facility] Comment on above: Result Comment: Mult iple pieces received. Dimensions of the largest piece reported. Performed By: #### C ALCULI ####[facility] W[address]omjdbah[address] [place], [place] [address]Dr. Giacomo Chambers Sodium Acid Urate Normal [facility] Comment on above: Performed By: #### C ALCULI ####[facility] Dwsbosnpuc[address] [place], [place] [address]Dr. Giacomo Chambers Source Comment Normal [facility] Comment on above: Result Comment: Not provided Performed By: #### C ALCULI ####[facility] S[address]azepvz[address] [place], [place] [address]Dr. Giacomo Chambers Triamterene Normal [facility] Comment on above: Performed By: #### C ALCULI ####[facility] X[address]cucov[address] [place], [place] [address]Dr. Giacomo Chambers Uric Acid Normal [facility] Comment on above: Performed By: #### C ALCULI ####[facility] Ijxdwzlhcm[address] [place], [place] [address]Dr. Giacomo Chambers Uric Acid Dihydrate Normal [facility] Comment on above: Performed By: #### C ALCULI ####[facility] [address] [address]Dr. Giacomo Chambers Weight [address] [facility] Comment on above: Performed By: #### C ALCULI ####[facility] [address] [address]Dr. Zinastella Reyes Xanthine Normal [facility] Comment on above: Performed By: #### C ALCULI ####[facility] [address] [address]Dr. Giacomo Chambers PROF CHEM 8 (BAS METB)on Anion gap [Moles/Vol] 13.0 mmol/L Normal [facility] Comment on above: Performed By: #### B MP ####[facility] [address]zmotx[address] [place], [place] [address]Dr. Giacomo Chambers Calcium [Mass/Vol] 8.7 mg/dL Normal 8.5-10.1 [facility] Comment on above: Performed By: #### B MP ####[facility] Kfkjclbism[address] [place], [place] [address]Dr. Giacomo Chambers Chloride [Moles/Vol] 101 mmol/L Normal 98-107 [facility] Comment on above: Performed By: #### B MP ####[facility] H[address]ahxrpny[address] [place], [place] [address]Dr. Giacomo Chambers CO2 [Moles/Vol] 28.9 mmol/L Normal 21.0-32.0 [facility] Comment on above: Performed By: #### B MP ####[facility] [address]manits[address] [place], [place] [address]Dr. Giacomo Chambers Creatinine [Mass/Vol] 1.04 mg/dL Normal 0.70-1.30 [facility] Comment on above: Performed By: #### B MP ####[facility] Ugmmkuhdrq[address] [place], [place] [address]Dr. Giacomo Chambers EGFR-AF TURKMEN >60 Normal >=60 [facility] Comment on above: Performed By: #### B MP ####[facility] [address] [address]Dr. Giacomo Chambers EGFR-NON AF TURKMEN >60 Normal >=60 [facility] Comment on above: Performed By: #### B MP ####[facility] [address] [address]Dr. Giacomo Chambers Glucose [Mass/Vol] 111 mg/dL Critically high 74-106 [facility] Comment on above: Performed By: #### B MP ####[facility] [address] [address]Dr. Giacomo Chambers Potassium [Moles/Vol] 3.9 mmol/L Normal 3.5-5.1 [facility] Comment on above: Performed By: #### B MP ####[facility] [address] [address]Dr. Giacomo Chambers Sodium [Moles/Vol] 139 mmol/L Normal 136-145 [facility] Comment on above: Performed By: #### B MP ####[facility] [address] [address]Dr. Giacomo Chambers Urea nitrogen [Mass/Vol] 18.0 mg/dL Normal 7.0-18.0 [facility] Comment on above: Performed By: #### B MP ####[facility] [address] [address]Dr. Giacomo Chambers Urea nitrogen/Creatinine [Mass ratio] 17.3 mg/mg Normal [facility] Comment on above: Performed By: #### B MP ####[facility] [address] [id number]. Giacomo Chambers XR KUB 1 VIEWon 11-11-2021 [...] by: RADHA PATEL Date: 2021-11-11 16:[address] [facility] Vital Signs Date Time Vital Sign Value Performing Clinician Facility 05-26-2024 09:11-0500 Blood Pressure Location Lupe BEAVER [facility] 05-26-2024 09:11-0500 Body temperature 98.6 [degF] Lupe BEAVER [facility] 05-26-2024 09:11-0500 Diastolic blood pressure 86 mm[Hg] Lupe BEAVER [facility] 05-26-2024 09:11-0500 Heart rate 81 /min Lupemilka BEAVER [facility] 05-26-2024 09:11-0500 Respiratory rate 18 /min Lupe BEAVER [facility] 05-26-2024 09:11-0500 Systolic blood pressure 132 mm[Hg] Lupe BEAV[facility] 04-16-2024 14:36-0400 Body height 179.1 cm Bunny Pocos DO Work Phone: [facility] 04-16-2024 14:36-0400 Body mass index (BMI) [Ratio] 34.94 kg/m2 Bunny Pocos DO Work Phone: [facility] 04-16-2024 14:36-0400 Body weight 112.04 kg Bunny Pocos DO Work Phone: [facility] 03-18-2024 14:35-0400 Heart rate 78 /min Bunny Wintersos [facility] 03-18-2024 14:35-0400 SaO2% (BldA) [Mass fraction] 93 % Bunny Pocos [facility] 03-18-2024 14:34-0400 Diastolic blood pressure 73 mm[Hg] Bunny Pocos [facility] 03-18-2024 14:34-0400 Mean blood pressure 91 mm[Hg] Bunny Pocos [facility] 03-18-2024 14:34-0400 Systolic blood pressure 128 mm[Hg] Bunny Pocos [facility] 03-18-2024 12:59-0400 Heart rate 70 /min Bunny Pocos [facility] 03-18-2024 12:59-0400 SaO2% (BldA) [Mass fraction] 96 % Bunny Pocos [facility] 03-18-2024 12:59-0400 Respiratory rate 18 /min Bunny Pocos [facility] 03-18-2024 12:58-0400 Diastolic blood pressure 75 mm[Hg] Bunny Pocos [facility] 03-18-2024 12:58-0400 Mean blood pressure 95 mm[Hg] Bunny Pocos [facility] 03-18-2024 12:58-0400 Systolic blood pressure 134 mm[Hg] Bunny Pocos [facility] 03-18-2024 11:43-0400 Heart rate 70 /min Bunny Pocos [facility] 03-18-2024 11:43-0400 SaO2% (BldA) [Mass fraction] 94 % Bunny Pocos [facility] 03-18-2024 11:41-0400 Respiratory rate 16 /min Bunny Pocos [facility] 03-18-2024 11:39-0400 Blood Pressure Location Bunny Pocos [facility] 03-18-2024 11:39-0400 Diastolic blood pressure 81 mm[Hg] Bunny Pocos [facility] 03-18-2024 11:39-0400 Mean blood pressure 97 mm[Hg] Bunny Pocos [facility] 03-18-2024 11:39-0400 Systolic blood pressure 129 mm[Hg] Bunny Pocos [facility] 03-18-2024 11:30-0400 Body temperature 96.98 [degF] Bunny Pocos [facility] 03-18-2024 11:30-0400 Respiratory rate 18 /min Bunny Pocos [facility] 03-18-2024 11:15-0400 Respiratory rate 18 /min Bunny Pocos [facility] 03-18-2024 10:33-0400 Body temperature 97.16 [degF] Bunny Pocos [facility] 03-18-2024 10:30-0400 Respiratory rate 17 /min Bunny Pocos [facility] 03-18-2024 10:20-0400 Body temperature 96.8 [degF] Bunny Pocos [facility] 03-18-2024 10:15-0400 Body temperature 96.98 [degF] Bunny Pocos [facility] 03-18-2024 10:10-0400 Body temperature 96.8 [degF] Bunny Pocos [facility] 03-18-2024 06:21-0400 Blood Pressure Location Bunny Pocos [facility] 03-18-2024 06:19-0400 Blood Pressure Location Bunny Pocos [facility] 02-18-2024 09:41-0400 Diastolic blood pressure 90 mm[Hg] Bunny Pocos [facility] 02-18-2024 09:41-0400 Heart rate 78 /min Bunny Pocos [facility] 02-18-2024 09:41-0400 Mean blood pressure 113 mm[Hg] Bunny Pocos [facility] 02-18-2024 09:41-0400 Systolic blood pressure 157 mm[Hg] Bunny Pocos [facility] 02-18-2024 09:40-0400 Heart rate 81 /min Bunny Pocos [facility] 02-18-2024 09:40-0400 SaO2% (BldA) [Mass fraction] 97 % Bunny Pocos [facility] 02-18-2024 09:39-0400 Diastolic blood pressure 82 mm[Hg] Bunny Pocos [facility] 02-18-2024 09:39-0400 Mean blood pressure 103 mm[Hg] Bunny Pocos [facility] 02-18-2024 09:39-0400 Systolic blood pressure 147 mm[Hg] Bunny Wintersos [facility] 11-28-2023 10:03-0400 Body height 177.8 cm [facility] 11-28-2023 10:03-0400 Body mass index (BMI) [Ratio] 34.7 kg/m2 [facility] 11-28-2023 10:03-0400 Body weight 109.76 kg [facility] 11-28-2023 10:03-0400 Diastolic blood pressure 77 mm[Hg] [facility] 11-28-2023 10:03-0400 Heart rate 71 /min [facility] 11-28-2023 10:03-0400 Systolic blood pressure 127 mm[Hg] [facility] 11-02-2023 11:55-0400 Blood Pressure Location Lupe BEAVER [facility] 11-02-2023 11:55-0400 Diastolic blood pressure 89 mm[Hg] Lupe BEAVER [facility] 11-02-2023 11:55-0400 Heart rate 80 /min Lupe BEAVER [facility] 11-02-2023 11:55-0400 Respiratory rate 16 /min Lupe BEAVER [facility] 11-02-2023 11:55-0400 Systolic blood pressure 132 mm[Hg] Lupe BEAVER [facility] 06-21-2023 11:33-0500 Body height 177.8 cm MD Sergio Connell Work Phone: [facility] 06-21-2023 11:33-0500 Body weight 106.59 kg MD Sergio Connell Work Phone: [facility] 03-15-2023 13:30-0400 Body height 177.8 cm Sergio Connell Other [facility] Other 03-15-2023 13:30-0400 Body mass index (BMI) [Ratio] 34.15 kg/m2 Sergio Connell Other [facility] Other 03-15-2023 13:30-0400 Body weight 107.96 kg Sergio Connell Other [facility] Other 03-15-2023 13:30-0400 Diastolic blood pressure 70 mm[Hg] Sergio Connell Other [facility] Other 03-15-2023 13:30-0400 Respiratory rate 12 /min Sergio Connell Other [facility] Other 03-15-2023 13:30-0400 Systolic blood pressure 132 mm[Hg] Sergio Connell Other [facility] Other 01-01-2023 08:45-0400 Body height 177.8 cm Sergio Connell Other [facility] Other 01-01-2023 08:45-0400 Body mass index (BMI) [Ratio] 34 kg/m2 Sergio Connell Other [facility] Other 01-01-2023 08:45-0400 Body weight 107.5 kg Sergio Connell Other [facility] Other 01-01-2023 08:45-0400 Diastolic blood pressure 75 mm[Hg] Sergio Connell Other [facility] Other 01-01-2023 08:45-0400 SaO2% (BldA) [Mass fraction] 97 % Sergio Connell Other [facility] Other 01-01-2023 08:45-0400 Systolic blood pressure 132 mm[Hg] Sergio Connell Other [facility] Other 05-29-2022 09:29-0500 Blood Pressure Location Lupe BEAVER [facility] 05-29-2022 09:29-0500 Diastolic blood pressure 76 mm[Hg] Lupe BEAVER [facility] 05-29-2022 09:29-0500 Heart rate 70 /min [facility] [facility] 05-29-2022 09:29-0500 Respiratory rate 16 /min Lupe BEAVER [facility] 05-29-2022 09:29-0500 Systolic blood pressure 127 mm[Hg] Lupe BEAVER [facility] 11-14-2021 10:33-0400 Blood Pressure Location Lupe BEAVER [facility] 11-14-2021 10:33-0400 Diastolic blood pressure 83 mm[Hg] Lupe BEAVER [facility] 11-14-2021 10:33-0400 Heart rate 71 /min Lupemilka BEAVER [facility] 11-14-2021 10:33-0400 Systolic blood pressure 160 mm[Hg] Lupe BEAVER [facility] Encounters Encounter Date Encounter Type Care Provider Facility Start: 05-26-2024 ambulatory Lupe BEAVER Facili ty:[facility] Start: 05-26-2024 End: 05-26-2024 Patient encounter procedure Lupe BEAVER [facility] Start: 04-16-2024 End: 04-16-2024 ambulatory BUNNY Puentes POCOS Not Available Start: 04-16-2024 End: 04-16-2024 Patient encounter procedure Bunny Puentes Pocos DO Work Phone: [facility] Comment on above: S/P total right hip arthroplasty (Primary Dx) Start: 04-16-2024 End: 04-16-2024 ambulatory JARRETT POCOS Not Available Start: 03-18-2024 End: 03-18-2024 Admission to same day surgery center Jarrett Pocos [facility] Start: 03-18-2024 End: 03-18-2024 ambulatory Jarrett Pocos [facility] Start: 03-13-2024 End: 03-13-2024 ambulatory AIXA GALEDEMETRIUS Not Available Start: 02-18-2024 End: 02-18-2024 ambulatory Jarrett Pocos Facility[facility] Start: 02-18-2024 End: 02-18-2024 Patient encounter procedure Jarrett Pocos [facility] Start: 02-18-2024 End: 02-18-2024 ambulatory JARRETT POCOS Not Available Start: 02-11-2024 End: 02-11-2024 ambulatory JARRETT POCOS Not Available Start: 01-07-2024 End: 01-07-2024 ambulatory JARRETT POCOS Not Available Start: 11-28-2023 End: 11-28-2023 ambulatory [facility] Work Phone: Start: 11-28-2023 End: 11-28-2023 Patient encounter procedure [facility] Work Phone: Start: 11-20-2023 Non-patient / Non-visit [facility] Work Phone: Start: 11-02-2023 End: 11-02-2023 ambulatory Lupe BEAVER Facility:[facility] Start: 11-02-2023 End: 11-02-2023 Patient encounter procedure Lupe BEAVER [facility] Start: 10-29-2023 Non-patient / Non-visit [facility] Work Phone: Start: 06-25-2023 End: 06-25-2023 ambulatory SUKHDEEP CROCKETT Not Available Start: 06-21-2023 End: 06-21-2023 ambulatory Sukhdeep Crockett Facility:[facility] Start: 06-21-2023 End: 06-21-2023 ambulatory MD Sergio Connell Work Phone: [facility] Work Phone: Start: 06-21-2023 End: 06-21-2023 Patient encounter procedure MD Sergio Connell Work Phone: [facility] [place] Work Phone: Start: 06-04-2023 ambulatory Lupe Sylvester Hernandez ty:[facility] Start: 05-28-2023 End: 05-28-2023 ambulatory SUKHDEEP CROCKETT Not Available Start: 05-24-2023 End: 05-24-2023 ambulatory BETSY CIFUENTES Not Available Start: 05-07-2023 End: 05-07-2023 ambulatory Sergio Connell Other [facility] Other Start: 05-07-2023 Telephone encounter Sergio Connell [facility] Start: 05-02-2023 End: 05-02-2023 ambulatory Sergio Connell Other [facility] Other Start: 05-02-2023 Telephone encounter Sergio Connell [facility] Start: 04-10-2023 End: 04-10-2023 ambulatory Sergio Connell Other [facility] Other Start: 04-10-2023 Telephone encounter Sergio Connell [facility] Start: 03-26-2023 End: 03-26-2023 ambulatory Sergio Connell Other [facility] Other Start: 03-26-2023 Telephone encounter Sergio Connell [facility] Start: 03-20-2023 End: 03-20-2023 ambulatory Sergio Connell Other [facility] Other Start: 03-20-2023 Telephone encounter Sergio Connell [facility] Start: 03-15-2023 End: 03-15-2023 ambulatory Sergio Connell Other [facility] Other Start: 03-15-2023 Office outpatient vi sit 15 minutes Sergio Connell [facility] Start: 02-22-2023 End: 02-22-2023 ambulatory Sergio Connell Other [facility] Other Start: 02-22-2023 Telephone encounter Sergio Connell [facility] Start: 01-11-2023 End: 01-11-2023 ambulatory Sergio Connell Other [facility] Other Start: 01-11-2023 Telephone encounter Sergio Connell [facility] Start: 01-03-2023 End: 01-03-2023 ambulatory Sergio Connell Other [facility] Other Start: 01-03-2023 Telephone encounter Sergio Connell [facility] Start: 01-01-2023 End: 01-01-2023 ambulatory Sergio Connell Other [facility] Other Start: 01-01-2023 Office outpatient vi sit 15 minutes Sergio Connell [facility] Start: 06-21-2022 End: 06-22-[address] SERGIO CONNELL Facility:[facility] Start: 06-14-2022 Adult health examination Carisa Connell Other [facility] Other Start: 05-29-2022 End: 05-29-2022 Patient encounter procedure Lupe BEAVER [facility] Start: 05-03-2022 End: 05-04-[address] LUPE BEAVER Facility:[facility] Start: 12-07-2021 End: [address] SERGIO CONNELL Facility:[facility] Start: 11-23-2021 End: 11-23-[address] SERGIO CONNELL Facility:[facility] Start: 11-14-2021 End: 11-15-[address] LUPE BEAVER Facility:[facility] Start: 11-14-2021 End: 11-14-2021 Patient encounter procedure Lupe Sylvester DOUG [facility] Start: 11-11-2021 End: 11-12-[address] LUPE BEAVER Facility:[facility] Procedures Date Procedure Procedure Detail Performing Clinician Start: 04-16-2024 Radex hip unilateral with pelvis 2-3 views Bunny Hewitt DO Work Phone: Start: 03-18-2024 Total replacement of hip Bunny Pocsantana Start: 06-21-2023 MRI of head MD Sergio Connell Work Phone: Start: 12-28-2022 Colonoscopy Bunny Turcios s DO Work Phone: Start: 05-03-[address] SERGIO CONNELL Comment on above: Performed By: #### P SAD ####[place] [address]DrCamila Chambers Start: 06-16-2021 Extracorporeal shock wave lithotripsy of calculus of kidney Lupe BEAVER Start: 11-29-2016 Right knee arthrosco py with partial medial meniscectomy in addition to chondroplasty, patellofemoral articulation Lupe BEAVER Start: 02-15-2016 Left hip arthroplasty P arielle BEAVER Start: 11-06-2012 Extracorporeal shock wave lithotripsy of calculus of kidney Lupe BEAVER Start: 07-24-2010 Extracorporeal shock wave lithotripsy of calculus of kidney Lupe BEAVER Start: 01-27-2008 Cystoscopic removal of ureteric stent Lupe BEAVER Start: 01-20-2008 Cystoscope, device ( physical object) Lupe BEAVER Start: 02-14-2007 Cystoscope, device ( physical object) Lupe BEAVER Start: 01-24-2007 Renal lithotripsy Maliniloren BEAVER Arthroscope, device (physical object) Lupe BEAVER Comment on above: B/l knees, left shou lder Arthroscope, device (physical object) Bunny Singhsantana Cholecystectomy Lupe GIULIA GARCIA Excision of basal ce ll carcinoma Lupe BEAVER Structure of rotator cuff of left shoulder Bunny Hewitt Tonsillectomy and adenoidectomy Lupe BEAVER Plan of Treatment Date Care Activity Detail Author Start: 12-28-2032 Screening for malignant neoplasm of colon [facility] Start: 06-16-2024 End: 06-16-2024 Patient encounter procedure 06/16/2024 10:30 AM EST Office Visit [facility] [address] [address] Hao Donnelly PA [address] [place] [address] [facility] Start: 03-09-2024 Influenza vaccination Influenza Vaccine (#1) [facility] Start: 06-21-2023 Doppler ultrasonography of bilateral carotid arteries US carotid doppler BI [facility] Start: 06-21-2023 US.doppler Carotid arteries - bilateral [facility] Start: 12-09-2015 Pneumococcal Vaccine: 65+ Years (1 of 1 - PCV) Pneumococcal Vaccine: 65+ Years (1 of 1 - PCV) [facility] Start: 1950 Screening for malignant neoplasm of colon [facility] Comprehensive metabo lic 2000 panel - Serum or Plasma [facility] Immunizations Immunization Date Immunization Notes Care Provider Fa cility 06-14-2023 influenza virus vaccine, unspecified formulation [facility] 06-07-2022 influenza virus vaccine, unspecified formulation Lupe BEAVER [facility] 04-03-2022 SARS-CoV-2 (COVID-19 ) [id number] Lupe BEAVER [facility] Comment on above: Result Comment: 2023: [id number] 06-24-2021 influenza virus vaccine, unspecified formulation Lupe BEAVER [facility] 05-02-2021 SARS-CoV-2 (COVID-19 ) mRNA-1273 vaccine Lupe BEAVER [facility] 09-15-2020 SARS-CoV-2 (COVID-19 ) mRNA-1273 vaccine Lupe BEAVER [facility] 08-18-2020 SARS-CoV-2 (COVID-19 ) mRNA-1273 vaccine Lupemilka BEAVER [facility] 03-31-2020 influenza virus vaccine, split virus (incl. purified surface antigen) Sergio Connell Other [facility] Other 03-31-2020 influenza virus vaccine, unspecified formulation [facility] 04-25-2019 influenza virus vaccine, unspecified formulation Lupe BEAVER [facility] 07-16-2018 influenza virus vaccine, split virus (incl. purified surface antigen) Sergio Connell Other [facility] Other 07-16-2018 influenza virus vaccine, unspecified formulation Lupe BEAVER [facility] 07-07-2016 influenza virus vaccine, unspecified formulation Lupe BEAVER [facility] 06-22-2015 influenza virus vaccine, split virus (incl. purified surface antigen) Sergio Connell Other [facility] Other 06-22-2015 influenza virus vaccine, unspecified formulation Lupe BEAVER [facility] 04-01-2013 tetanus and diphther ia toxoids, adsorbed, preservative free, for adult use (5 Lf of tetanus toxoid and 2 Lf of diphtheria toxoid) Sergio Connell Other [facility] NEGATED: Highlighted row has not occurred!06-10-2019 pneumococcal polysaccharide vaccine, 23 valent Sergio Connell Other [facility] Other Payers Date Payer Category Payer Unknown [address] [employer] [id number] 2023-Present [phone] [address] [address] [place] [address] [id number] 2023 Self-pay 2015 Medicare MEDICARE MEDICAR E PART B [id number] 2015-[place] [address] Medicare [id number] 1959 Medicare [id number] 1950 Unknown [id number] 2.16.840.1.762918.3.579.2.593 1950 Unknown [id number] 2.16.840.1.409668.3.579.2.593 1950 Unknown [id number] 2.16.840.1.078739.3.579.2.593 1950 Unknown [id number] 2.16.840.1.358582.3.579.2.593 1950 Unknown [id number] 2.16.840.1.840814.3.579.2.593 1950 Unknown [id number] 2.16.840.1.646988.3.579.2.593 1950 Unknown [id number] 2.16.840.1.529071.3.579.2.727 1950 Unknown [id number] 2.16.840.1.336911.3.579.2.727 1950 Unknown [id number] 2.16.840.1.786158.3.579.2.1259 1950 Unknown [id number] 2.16.840.1.980250.3.579.2.1259 1950 Unknown [id number] 2.16.840.1.253666.3.579.2.1259 1950 Unknown [id number] 2.16.840.1.740601.3.579.2.1259 1950 Unknown [id number] 2.16.840.1.332197.3.579.2.1259 1950 Unknown [id number] 2.16.840.1.999448.3.579.2.1259 1950 Unknown [id number] 2.16.840.1.073798.3.579.2.1259 1950 Unknown [id number] 2.16.840.1.714260.3.579.2.1259 1950 Unknown [id number] 2.16.840.1.866233.3.579.2.1259 1950 Unknown [id number] 2.16.840.1.635924.3.579.2.1259 1950 Unknown [id number] 2.16.840.1.494320.3.579.2.1259 1950 Unknown [id number] 2.16.840.1.465147.3.579.2.1259 1950 Unknown [id number] 2.16.840.1.374992.3.579.2.1259 1950 Unknown [id number] 2.16.840.1.592575.3.579.2.727 1950 Unknown [id number] 2.16.840.1.852196.3.579.2.727 1950 Unknown [id number] 2.16.840.1.110980.3.579.2.727 1950 Unknown [id number] 2.16.840.1.921843.3.579.2.727 Unknown [id number] Unknown [id number] 2.16.840.1.964875.3.579.2.531 Social History Date Type Detail Facility Start: 11-14-2021 End: 05-26-2024 Tobacco smoking status Never smoked tobacco (finding) [facility] Start: 04-16-2024 Sex Assigned At Male [facility] Start: 1950 Sex Assigned At Male [facility] Tobacco smoking status Never [facility] Start: 05-28-2023 Tobacco use and exposure [...] Identifier Dates HIP TOTAL ROBOT ARTHROPLASTY Pocos DO, Bunny Puentes 03/18/24 Unknown Hip R FDA Start: 03-18-2024 HIP TOTAL ROBOT ARTHROPLASTY Pocos DO, Jarrett 03/18/24 Unknown Hip R FDA Start: 03-18-2024 HIP TOTAL ROBOT ARTHROPLASTY Pocos DO, Bunny Puentes 03/18/24 Unknown Hip R FDA Start: 03-18-2024 HIP TOTAL ROBOT ARTHROPLASTY Pocos DO, Bunny Puentes 03/18/24 Unknown Hip R FDA Start: 03-18-2024 HIP TOTAL ROBOT ARTHROPLASTY Pocos DO, Bunny Puentes 03/18/24 Unknown Hip R FDA Start: 03-18-2024 HIP TOTAL ROBOT ARTHROPLASTY Pocos DO, Bunny Puentes 03/18/24 Unknown Hip R FDA Start: 03-18-2024 HIP TOTAL ROBOT ARTHROPLASTY Pocos DO, Bunny Puentes 03/18/24 Unknown Hip R FDA Start: 03-18-2024 HIP TOTAL ROBOT ARTHROPLASTY Pocos DO, Bunny Puentes 03/18/24 Unknown Hip R FDA Start: 03-18-2024 HIP TOTAL ROBOT ARTHROPLASTY Pocos DO, Bunny Puentes 03/18/24 Unknown Hip R FDA Start: 03-18-2024 HIP TOTAL ROBOT ARTHROPLASTY Pocos DO, Bunny Puentes 03/18/24 Unknown Hip R FDA Start: 03-18-2024 HIP TOTAL ROBOT ARTHROPLASTY Pocos DO, Bunny Puentes 03/18/24 Unknown Hip R FDA Start: 03-18-2024 HIP TOTAL ROBOT ARTHROPLASTY Pocos DO, Bunny Puentes 03/18/24 Unknown Hip R FDA Start: 03-18-2024 Functional Status Date Assessment Result Facility 05-26-2024 Functional Status N/A [facility] 02-18-2024 Functional Status No [facility] 11-02-2023 Functional Status N/A [facility] 05-29-2022 Functional Status N/A [facility] Clinical Notes 11-14-2021 to 05-26-2024 Bunny Hewitt, DO - 04/16/2024 2:30 PM EDT Note Date & Type Note Facility 05-26-2024 Hospital Discharge instructions Patient Education 05/26/2024 09:43:11 Kidney Stones, [id number] Kidney Stones Kidney stones are rock-like masses that form inside of the kidneys. Kidneys are organs that make pee (urine). A kidney stone may move into other parts of the urinary tract, including: The tubes that connect the kidneys to the bladder (ureters). The bladder. The tube that carries urine out of the body (urethra). Kidney stones can cause very bad pain and can block the flow of pee. The stone usually leaves your body through your pee. A doctor may need to take out the stone. What are the causes? Kidney stones may be caused by: Too much calcium in the body. This may be caused by too much parathyroid hormone in the blood. Uric acid crystals in the bladder. The body makes uric acid when you eat certain foods. Narrowing of one or both of the ureters. A kidney blockage that you were born with. Past surgery on the kidney or the ureters. What increases the risk? You are more likely to develop this condition if: You have had a kidney stone in the past. Other people in your family have had kidney stones. You do not drink enough water. You eat a diet that is high in protein, salt (sodium), or sugar. You are very overweight (obese). What are the signs or symptoms? Symptoms of a kidney stone may include: Pain in the side of the belly, right below the ribs. Pain usually spreads to the groin. Needing to pee often or right away. Pain when peeing. Blood in your pee. Feeling like you may vomit (nauseous). Vomiting. Fever and chills. How is this treated? Treatment depends on the size, location, and makeup of the kidney stones. The stones will often pass out of the body when you pee. You may need to: Drink more fluid to help pass the stone. ?In some cases, you may be given fluids through an IV tube at the hospital. Take medicine for pain. Change your diet to help keep kidney stones from coming back. Sometimes, you may need: A procedure to break up kidney stones using a beam of light (laser) or shock waves. Surgery to remove the kidney stones. Follow these instructions at home: Medicines Take fnhy-sxn-rxkypny and prescription medicines only as told by your doctor. Ask your doctor if the medicine prescribed to you requires you to avoid driving or using machinery. Eating and drinking Drink enough fluid to keep your pee pale yellow. ?You may be told to drink at least 8 10 glasses of water each day. This will help you pass the stone. If told by your doctor, change your diet. You may be told to: ?Limit how much salt you eat. ?Eat more fruits and vegetables. ?Limit how much meat, poultry, fish, and eggs you eat. Follow instructions from your doctor about what you may eat and drink. General instructions Collect pee samples as told by your doctor. You may need to collect a pee sample: ?24 hours after a stone comes out. ?8 12 weeks after a stone comes out, and every 6 12 months after that. Strain your pee every time you pee. Use the strainer that your doctor recommends. Do not throw out the stone. Keep it so that it can be tested by your doctor. Keep all follow-up visits. You may need X-rays and ultrasounds to make sure the stone has come out. How is this prevented? To prevent another kidney stone: Drink enough fluid to keep your pee pale yellow. This is the best way to prevent kidney stones. Eat healthy foods. Avoid certain foods as told by your doctor. You may be told to eat less protein. Stay at a healthy weight. Where to find more information National Kidney Foundation (NKF): kidney.org Urology Care Foundation (UCF): urologyhealth.org Contact a doctor if: You have pain that gets worse or does not get better with medicine. Get help right away if: You have a fever or chills. You get very bad pain. You get new pain in your belly. You faint. You cannot pee. This information is not intended to replace advice given to you by your health care provider. Make sure you discuss any questions you have with your health care provider. Document Revised: 02/16/2023 Document Reviewed: 02/16/2023 [employer] Patient Education 2023 [employer] Follow Up Care 11/02/2023 13:22:05 With:DOUG NATHAN, Lupe Phan, URL Address: [facility] [address] [place] [address]- [phone] When: Unknown Comments:6 mos w/ PSA and KUB [facility] Estephania 04-16-2024 History of Present illness Narrative Post [...] x-ray and exam. Metal detectors are discussed. 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 Numerous questions were answered. The patient is discharged in stable condition. documented in this encounter [facility] 03-18-2024 Note Progress Note-Js dickey Patient: GERRY LAY Age: 73 years Sex: Male : 1950 Associated Diagnoses: None Author: Lucas Veloz MD Postoperative Information Postoperative disposition: Postoperative disposition: To PACU. Optimetrix number: Optimetrix number [id number]. Anesthetic utilized: General. Regional: FIB . Health Status Allergies: Allergic Reactions (Selected) Severity Not Documented Codeine- Nausea present. Compazine- Pt states family hx he has never had. sister x2 severe reaction muscle rigidity. Penicillins- Fever. Percocet /325- N&v - nausea and vomiting. Physical Examination [...] when meets criteria ( To home ). [facility] Comment on above: Result Comment: Elec tronically Signed By: Lucas Veloz MD\.br\Date and Time Signed: 03/18/24 14:43 EDT 03-18-2024 Note Interdisciplinary No te - PT PT evaluation completed with an AMPAC score of 18/24. Pt able to ambulate 75 ft with CGA and FWW. Pt would be functionally safe to be discharged home with caregiver assist and Yqdao255 to follow. [facility] 03-18-2024 Evaluation + Plan note Extrac prabhu from: Title:ANES Post-operative Note---General Author: Lucas Veloz MD Date:03/18/24 Plan Transfer/Discharge: Transfer/Discharge Discharge when meets criteria ( To home ). Extracted from: Title:ANES Pre-operative Note 2022 Author:Lucas Soriano Date:03/18/24 Plan [place] [employer] Anesthesiologists (ASA) physical status classification: Class III. Anesthetic Preoperative Plan: Anesthesia. Regional Spinal, and Fascia Iliaca Block . Future Appointments Appointment Date:05/26/2024 08:45:00 AM Scheduled Provider:Lupe BEAVER MD Location:[facility] Appointment Type:URO Office Visit [facility] 09-10-2024 Hospital Discharge instructions Patient Education 03/18/2024 11:31:13 Post Op Patient Instructions - FT (Custom) (CUSTOM) 03/11/2024 07:09:40 Pocos - Hip Replacement Arthroplasty - Posterior Lateral Approach (Custom) [place] [place] [facility] DISCHARGE INSTRUCTIONS HIP REPLACEMENT [...] will continue at home, possible with the driller's assistant of Home Health Physical Therapy or in the hospital as an outpatient. When you have become independent withthe physical therapy program, this will then be discontinued as a supervised program and you will be instructed to continue the physical therapy exercises at home. DRIVING: Do NOT Drive FOLLOW-UP OFFICE VISIT: 4 weeks Postop Bunny Hewitt, DO [facility] [address] [place] [address] [phone] Revised: 11-28 Follow Up Care 02/11/2024 10:15:08 With:Bunny Hewitt Address: [address] [place], [place] [id number]- Business (1) When:04/16/2024 14:30:00 Comments:Appointment has already been scheduled. Call for any problems. [facility] 09-10-2024 NotePatient Education - Text [place] [place] [facility] DISCHARGE INSTRUCTIONS HIP REPLACEMENT [...] will continue at home, possible with the driller's assistant of Home Health Physical Therapy or in the hospital as an outpatient. When you have become independent withthe physical therapy program, this will then be discontinued as a supervised program and you will be instructed to continue the physical therapy exercises at home. DRIVING: Do NOT Drive FOLLOW-UP OFFICE VISIT: 4 weeks Postop Bunny Hewitt DO [facility] [address] [place] [address] Revised: 11-28[facility]09-10-2024 NoteProgress Note-Physician Patient: GERRY LAY Age: 73 years Sex: Male : 1950 Associated Diagnoses: None Author: Bunny Hewitt DO Postoperative Information Procedure: R RA JAZIEL Preoperative Diagnosis: R hip OA. Postoperative Diagnosis: same. Performed by: bridgette. Special Needs Librarian: Patrice Cisneros. Specimens Removed: bone, soft tissue. Prosthesis: Mendel. . Estimated Blood Loss: 300 ml. Complications: None. Anesthesia type: Spinal, fascia iliaca block.[facility]Result Comment: Electronically Signed By: Bunny Hewitt DO\.br\Date and Time Signed: 03/18/24 10:23 [id number] NoteProgress Note-Physician Patient: GERRY LAY Age: 73 years Sex: Male : 1950 Associated Diagnoses: None Author: Lucas Veloz MD Preoperative Information Anesthesia Preop Info: Time patient [...] dysfunction, # 30 tab(s), Refills(s) 3, Pharmacy: [facility]/pharmacy #[id number], 178, cm, 11/02/23 11:57:00 EDT, Height/Length Dosing, 102, kg, 11/02/23 11:57:00 EDT, Weight Dosing Colace 100 mg Cap: 100 mg = 1 cap(s), Oral, BID, PRN for constipation, # 40 cap(s), Refills(s) 0, Pharmacy: [facility]/pharmacy #[id number], 177.5, cm, 02/18/24 14:14:00 EDT, Height/Length Dosing, 111.4, kg, 02/18/24 14:14:00 EDT, Weight Dosing Flomax 0.4 mg Cap: 0.4 mg = 1 cap(s), Oral, BID, # 180 cap(s) (more content not included)...[facility]Result Comment: Electronically Signed By: Aj NATHAN, Lucas Matias\.br\Date and Time Signed: 03/18/24 09:06 [id number] NotePatient Education - Text [place] [place] [facility] DISCHARGE INSTRUCTIONS HIP REPLACEMENT [...] will continue at home, possible with the driller's assistant of Home Health Physical Therapy or in the hospital as an outpatient. When you have become independent withthe physical therapy program, this will then be discontinued as a supervised program and you will be instructed to continue the physical therapy exercises at home. DRIVING: Do NOT Drive FOLLOW-UP OFFICE VISIT: 4 weeks Postop Bunny Hewitt, DO [facility] [address] [place] [address] Revised: 11-28[facility]04-26-2024 Hospital Discharge instructions Patient Education 11/02/2023 [...] Follow these instructions at home: Medicines Take rfgk-mfw-mhuwzvx and prescription medicines only as told by [...] provider. Document Revised: 09/21/2021 Document Reviewed: 09/21/2021 DataPad Patient Education 2022 [employer]. Follow Up Care 05/25/2023 13:25:49 With:DOUG NATHAN, Lupe Phan, URL Address: [address] [place] [id number]- When: Unknown [facility] Evaluation note* Encounter Date Diagnosis Assessment Notes Treatment Notes Treatment Clinical Notes Apr, Left lower lobe pulmonary nodule (ICD-10 - R91.1) [facility] Other 09-07-2023 Evaluation note* Encounter Date Diagnosis Assessment Notes Treatment Notes Treatment Clinical Notes Mar, Benign paroxysmal positional vertigo due to bilateral vestibular disorder (ICD-10 - H81.13) Pt requests referral to Dr. Crockett - states his office would like a CT sinus to be complete prior to the OV. [facility] Other 07-06-2023 Evaluation note* Encounter Date Diagnosis Assessment Notes Treatment Notes Treatment Clinical Notes Jan, Dyspnea on exertion (ICD-10 - R06.09) [facility] Other 06-26-2023 Evaluation note* Encounter Date Diagnosis Assessment Notes Treatment Notes Treatment Clinical Notes Dec, Primary hypertension (ICD-10 - I10) Chronic problem- check labs and EKG. Upcoming trip to [place] later this summer. Dec, BPV (benign positional vertigo), bilateral (ICD-10 - H81.13) Order printed for PT Dec, Acquired hypothyroidism (ICD-10 - E03.9) Check labs. [facility] Other 11-21-2022 Hospital Discharge instructions Patient Education [...] include: ?Spinach. ?Rhubarb. ?Beets. ?Potato chips and swedish fries. ?Nuts. If you regularly take a diuretic medicine, make sure to eat at least 1 2 fruits or vegetables high in potassium each day. These include: ?Avocado. ?Banana. ?[place], prune, carrot, or tomato juice. ?Baked potato. [...] Casseroles. Pizza. Lasagna. Frozen meals. Potato chips. Fijian fries. Summary You can reduce your risk [...] 10/20/2011 Document Revised: 10/15/2019 Document Reviewed: 06/05/2017 DataPad Patient Education 2020 [employer]. Follow Up Care 11/14/2021 11:17:31 With:DOUG NATHAN, Lupe Phan, URL Address: [facility] [address] [place] [id number]- When: Unknown [facility] [place] 05-09-2022 Hospital Discharge instructions Patient Education [...] include: ?Spinach. ?Rhubarb. ?Beets. ?Potato chips and swedish fries. ?Nuts. If you regularly take a diuretic medicine, make sure to eat at least 1 2 fruits or vegetables high in potassium each day. These include: ?Avocado. ?Banana. ?[place], prune, carrot, or tomato juice. ?Baked potato. [...] Casseroles. Pizza. Lasagna. Frozen meals. Potato chips. Fijian fries. Summary You can reduce your risk [...] 10/20/2011 Document Revised: 10/15/2019 Document Reviewed: 06/05/2017 DataPad Patient Education 2020 [employer]. Follow Up Care 07/15/2021 13:17:36 With:Lupe BEAVER MD, URL Address: [facility] [address] , [place] [id number]- When: Unknown [facility] evaluation + Plan note Future Appointments Appointment Date:05/29/2022 09:15:00 AM Scheduled Provider:Lupe BEAVER MD Location:[facility] Appointment Type:URO Office Visit Diagnostic Tests Pending * PSA Total 11/14/21 * Calculi Analysis Urinary 11/14/21 [facility] evaluation + Plan note Future Appointments Appointment Date:06/04/2023 09:15:00 AM Scheduled Provider:Lupe BEAVER MD Location:[facility] Appointment Type:URO Office Visit Diagnostic Tests Pending * PSA Total 05/29/22 [facility] evaluation + Plan note Future Appointments Appointment Date:05/26/2024 08:45:00 AM Scheduled Provider:Lupe BEAVER MD Location:[facility] Appointment Type:URO Office Visit Diagnostic Tests Pending * PSA Total 12/22/23 * PSA Total 03/09/24 [facility] evaluation + Plan note Future Appointments Appointment Date:03/18/2024 09:00:00 AM Scheduled Provider: Location:[facility] Appointment Type:Surgery FT Appointment Date:05/26/2024 08:45:00 AM Scheduled Provider:Lupe BEAVER MD Location:[facility] Appointment Type:URO Office Visit [facility] evaluation + Plan note Future Appointments Appointment Date:11/21/2024 08:45:00 AM Scheduled Provider:Lupe BEAVER MD Location:[facility] Appointment Type:URO Office Visit Diagnostic Tests Pending * PSA Total 05/26/24 * Calculi Analysis Urinary 05/26/24 [facility] evalmtlhvl noteNo InformationNort [employer] Other evaluiakip noteNo assessment information available [facility] Work Phone: Evaluation note* Diagnosis Onset Date Resolution Status HTN (hypertension) acute Hyperlipidemia acute Hypothyroid acute [facility] Work Phone: Evaluation note* Diagnosis S/P total right hip arthroplasty- Primary documented in this encounter [facility] N[facility] - Reported* Type Description Date Medical History Kidney stones Medical History Hypercholesterolemia Surgical History lithotripsy Surgical History cystoscopy Surgical History knee arthroscopy Surgical History rotator cuff Surgical History cholecystectomy Surgical History Colonoscopy 12/2022 Hospitalization History see above [facility] Other Hospital course Narrative No data available for this section [facility] Hospital Discharge instructions No data available for this section [facility] Progress note No data available for this section [facility] reason for visit Narrativereferral for vertigo, medication discussion [facility] Other Summary Purpose Family History Relationship Condition [...] to bilateral vestibular disorder (H81.13) Referral Organization formerly [facility] dimas Referring Provider First Name Sergio Referring Provider Last Name Ko Referring Provider Specialty [facility] Referred Organization [facility] Referred Provider Sukhdeep Crockett Referred Address ,[place], [place],[address] Referred Provider Specialty Otolaryngolo gy Referral Priority [...] team informatio n (unrecognized section and content) Personnel Name: SERGIO CONNELL MD Address: Address: [address] [place] [address] Team Status: Active Member Role Status Dates [...] Sergio Connell MD Primary Care Provider Active Access Service Representative Relationship Specialty Start Date End Date Sergio Connell MD [address] [place] [address] PCP - General Family Medicine 05/24/23 (unrecognized sect ion and content) No Status Records FoundNo Status Records FoundNo Status Records FoundNo Status Records FoundNo Status Records FoundNo Status Records FoundNo Status Records FoundNo Status Records FoundNo Status Records FoundNo Status Records FoundNo Status Records FoundNo Status Records FoundNo Status Records Found INFORMATION SOURCE (unrecogn ized section and content) DATE CREATED AUTHOR 06/30/2022 [facility] DATE CREATED AUTHOR AUTHOR'S ORGANIZ ATION 08/17/2023 [facility] DATE CREATED AUTHOR AUTHOR'S ORGANIZ ATION 02/19/2024 Junior Francesco [facility] DATE CREATED AUTHOR AUTHOR'S ORGANIZ ATION 03/19/2024 [facility] DATE CREATED AUTHOR AUTHOR'S ORGANIZ ATION 03/22/2024 Junior Haywood [facility] DATE CREATED AUTHOR AUTHOR'S ORGANIZ ATION 03/26/2024 Junior Haywood [facility] DATE CREATED AUTHOR AUTHOR'S ORGANIZ ATION 04/18/2024 [facility] DATE CREATED AUTHOR AUTHOR'S ORGANIZ ATION 05/24/2024 [facility] REASON FOR VISIT (unrecogniz ed section [...] BE BASED ON THE PRIMARY CLINICAL RECORDS. [facility] [employer] [facility]. provides no warranty or guarantee of the accuracy or completeness of information in this document.
[2024-05-30 16:10] LABS: Calcium Oxalate Monohydrate 100 % (.); Size 3x2 mm (.)
== END 2024-05-27 11:13 | disposition home or self-care (01) ==
LOC: LAB 11:12
PROVIDERS: Family Provider Optometrist; PCP Family Medicine; Visit Provider Urology
DX: N20.0 Calculus of kidney (principal)
CPT/HCPCS: 82365

== ENCOUNTER 2024-06-16 11:31 | Outpatient (OUT) | payer MEDICARE, OTHER, SELFPAY ==
[2024-06-16 11:49] LABS: Basophils Percent Auto 0.6 % (0.2-2.0); Eosinophils Absolute Auto 0.1 10^3/uL (0.0-0.7); Eosinophils Percent Auto 1.1 % (0.9-7.0); Hematocrit 46.6 % (42.0-54.0); Hemoglobin 15.3 g/dL (14.0-18.0); Immature Granulocytes Abs Auto 0.01 10^3/uL (0.00-0.03); Immature Granulocytes Pct Auto 0.2 % (0.0-0.5); Lymphocytes Absolute Auto 1.4 10^3/uL (1.2-3.8); Lymphocytes Percent Auto 22.2 % (20.5-60.0); Mean Corpuscular HGB Conc 32.8 g/dL (29.9-35.2); Mean Corpuscular Hemoglobin 30.9 pg (25.9-34.0); Mean Corpuscular Volume 94.1 fL (80.0-94.0); Mean Platelet Volume 9.7 fL (9.5-13.5); Monocytes Absolute Auto 0.6 10^3/uL (0.3-0.8); Monocytes Percent Auto 9.3 % (1.7-12.0); Neutrophils Absolute Auto 4.2 10^3/uL (1.4-6.5); Neutrophils Percent Auto 66.6 % (43.0-75.0); Platelet Count 182 10^3/uL (150-450); Red Blood Count 4.95 10^6/uL (4.70-6.10); Red Cell Distribution Width 13.1 % (11.0-15.0); White Blood Count 6.3 10^3/uL (4.0-11.0)
[2024-06-16 12:31] LABS: BUN Creatinine Ratio 17.9; Calcium 9.1 mg/dL (8.5-10.1); Carbon Dioxide 29.5 mmol/L (21.0-32.0); Chloride 103 mmol/L (98-107); Estimated GFR (African America >60 (>=60 mL/min/1.73m^2); Estimated GFR (Non-African Ame >60 (>=60 mL/min/1.73m^2); Glucose 138 mg/dL (74-106); Potassium 3.5 mmol/L (3.5-5.1); Sodium 140 mmol/L (136-145)
== END 2024-06-16 11:32 | disposition home or self-care (01) ==
LOC: LAB 11:33
PROVIDERS: Family Provider Optometrist; PCP Family Medicine; Visit Provider Orthopaedic Surgery
DX: Z01.812 Encounter for preprocedural laboratory examination (principal)
CPT/HCPCS: 36415; 80048; 85025

== ENCOUNTER 2024-06-17 07:59 | Outpatient (OUT) | payer MEDICARE, OTHER, SELFPAY ==
--- NOTE | 2024-06-17 08:03 | US_ITS ---
[address] [address] Patient Name: GERRY LAY MRN: [id number] date: 1950 Sex: M Assigned Patient Location: US Current Patient Location: [place] Accession/Order Number: [id number] Exam Date: 06/17/2024 08:04 Report Date: 06/17/2024 10:20 At the request of: SERGIO CONNELL Procedure: US carotid duplex BI DUPLEX ULTRASOUND EXAMINATION OF THE CAROTID ARTERIES. COMPARISON: None. HISTORY / INDICATIONS: History of retinal hemorrhage TECHNIQUE: Bilateral common carotid arteries, extracranial internal and external carotid arteries are evaluated with perez-scale imaging, color Doppler, and spectral analysis according to a standard protocol. ICA-CCA ratios are calculated with transportation services representative peak-systolic velocities and recorded. Vertebral arteries are evaluated in one segment to evaluate for patency and character of flow. Comparison with previous evaluation is performed when available. Unless otherwise specified, all velocities are measured in cm/sec. Carotid stenosis is reported according to validated velocity parameters, similar to NASCET criteria. FINDINGS: Right Carotid: Mild plaque was noted. Velocity measurements as follows: Internal Carotid Artery 69/23 and 64/20. ICA to CCA ratio: 0.8. Left Carotid: Mild plaque was noted. Velocity measurements as follows: Internal Carotid Artery 59/19 and 48/14. ICA to CCA ratio: 0.5. Antegrade flow was seen in both vertebral arteries. CONCLUSION: 1. Less than 50% stenosis of the right ICA. 2. Less than 50% stenosis of the left ICA. 3. Vertebral arteries are patent and demonstrate antegrade flow. Electronically authenticated by: Willy MORROW Date: 06/17/2024 10:20
== END 2024-06-17 08:00 | disposition home or self-care (01) ==
LOC: US 07:59
PROVIDERS: Family Provider Optometrist; PCP Family Medicine; Visit Provider Family Medicine
DX: H35.62 Retinal hemorrhage, left eye (principal); I77.9 Disorder of arteries and arterioles, unspecified; R09.89 Other specified symptoms and signs involving the circulatory and respiratory systems
CPT/HCPCS: 93880

== ENCOUNTER 2024-11-05 08:44 | Outpatient (OUT) | payer MEDICARE, OTHER, SELFPAY ==
--- NOTE | 2024-11-05 08:46 | CT_ITS ---
The [address] [address] Patient Name: GERRY LAY MRN: [id number] date: 1950 Sex: M Assigned Patient Location: CT Current Patient Location: CT Accession/Order Number: [id number] Exam Date: 11/05/2024 09:44 Report Date: 11/05/2024 09:46 At the request of: SERGIO CONNELL MD Procedure: CT abdomen pelvis wo con CT ABDOMEN AND PELVIS WITHOUT INTRAVENOUS CONTRAST: CLINICAL HISTORY: Acute right flank pain COMPARISON: None TECHNIQUE: Spiral images were obtained through the abdomen and pelvis without intravenous contrast. This CT exam was performed using one or more following dose reduction techniques: Automated exposure control, adjustment of the mA and/or kV according to patient size, or use of iterative reconstruction technique. FINDINGS: Lung Bases: [Bibasilar atelectasis.] Organs:Suboptimal evaluation due to lack of IV contrast. Gallbladder has been removed. Liver pancreas spleen and adrenal glands all appear unremarkable. Bilateral nephrolithiasis largest stone measuring 4 mm. No hydronephrosis. Fusiform type infrarenal abdominal aortic aneurysm measuring 3.6 cm.[ GI: Stomach is grossly unremarkable. Small bowel appears nondilated. Appendix not visualized. Sigmoid diverticulosis. Pelvis:[Suboptimal evaluation due to streak hardware artifact from the patient's bilateral hip prostheses. No acute gross abnormality.] Peritoneum/Retroperitoneum:No free air free fluid or lymphadenopathy.[ Abd wall/Bones:No acute findings. Osseous structures demonstrate degenerative change.[ CT/CT abdomen pelvis wo con IMPRESSION: Bilateral nephrolithiasis. No fractures uropathy. Sigmoid diverticulosis. Fusiform type abdominal aortic aneurysm measuring 3.6 cm. Impression dictated by: Raoul Baumann Jr., DCamilaOCamila 11/05/2024 9:46 AM Dictation Location: [facility] Electronically authenticated by: [id number] Y Date: 11/05/2024 09:46
== END 2024-11-05 08:45 | disposition home or self-care (01) ==
LOC: CT 08:44
PROVIDERS: Family Provider Optometrist; PCP Family Medicine; Visit Provider Family Medicine
DX: R10.9 Unspecified abdominal pain (principal); N20.0 Calculus of kidney; K57.90 Diverticulosis of intestine, part unspecified, without perforation or abscess without bleeding; I71.40 Abdominal aortic aneurysm, without rupture, unspecified
CPT/HCPCS: 74176

== ENCOUNTER 2024-12-02 07:29 | Outpatient (OUT) | payer MEDICARE, OTHER, SELFPAY ==
--- OUTSIDE RECORDS SUMMARY | 2024-11-17 10:28 | XMS_ITS ---
Author Name Auto Generated Organization OHIP Care Team Providers Care Interrelated Special Education Teacher Name Role Phone POCOS, BUNNY Puentes Referring Unavailable POCOS, BUNNY Puentes Attending Unavailable POCOS, BUNNY Puentes Referring Unavailable POCOS, BUNNY Puentes Referring Unavailable POCOS, BUNNY Puentes Attending Unavailable POCOS, BUNNY Puentes Referring Unavailable POCOS, BUNNY Puentes Referring Unavailable CARMEN LINDA Attending Unavailable SERGIO CONNELL Referring Unavailable POCOS, BUNNY Puentes Attending Unavailable POCOS, BUNNY Puentes Referring Unavailable POCOS, BUNNY Puentes Referring Unavailable POCOS, BUNYN Puentes Attending Unavailable BENEDIAIXA LUNDBERG Attending Unavailable POCOS, JARRETT Referring Unavailable POCOS, JARRETT Referring Unavailable POCOS, JARRETT Attending Unavailable POCOS, JARRETT Referring Unavailable POCOS, JARRETT Attending Unavailable POCOS, JARRETT Attending Unavailable Pocos, Jarrett Attending Unavailable Pocos, Jarrett Admitting Unavailable Pocos, Jarrett Referring Unavailable SERGIO CONNELL Primary Care Unavailable Juan BEAVER Attending Unavailable Pocos, Jarrett Referring Unavailable Pocos, Jarrett Attending Unavailable Pocos, Jarrett Admitting Unavailable Pocos, Jarrett Referring Unavailable Pocos, Jarrett Attending Unavailable Pocos, Jarrett Admitting Unavailable Pocos, Jarrett Referring Unavailable Pocos, Jarrett Attending Unavailable Pocos, Jarrett Admitting Unavailable PROBLEMS No Problem Records Found PROCEDURES No Procedure Records Found RESULTS AMBULATORY VISIT SUMMARY Observed: 05/26 1:10 PM Status: F Source: [facility] Ambulatory Visit Summary GERRY LAY :1950 Visit Date:12/29/2019 Ambulatory Visit Instructions Your Diagnosis Kidney stone Tests Performed XR Abdomen 1 View -- Results Pending -- Please visit your patient portal for your results or contact your primary care physician. Your Care Team Primary Care Physician - SERGIO CONNELL MD This Is Your Medications List aspirin (aspirin 81 mg Oral EC Tab) docusate (Colace 100 mg Cap) hydrochlorothiazide (hydrochlorothiazide 25 mg Tab) levothyroxine (levothyroxine 75 mcg (0.075 mg) Tab) pyridoxine (Vitamin B6) rosuvastatin (Crestor) tadalafil (Cialis 20 mg Tab) tamsulosin (Flomax 0.4 mg Cap) ubiquinone (CoQ10) Procedures Performed Total hip replacement (03/18/2024), ESWL - Extracorporeal shockwave lithotripsy for renal calculus (06/16/2021), Right knee arthroscopy with partial medial meniscectomy in addition to chondroplasty, patellofemoral articulation (11/29/2016), Left hip arthroplasty (02/15/2016), ESWL of kidney (11/2012), ESWL of kidney (07/24/2010), Cystoscopic removal of ureteric stent (01/27/2008), Cystoscope (01/20/2008), Cystoscope (02/14/2007), Lithotripsy of kidney (01/24/2007), Arthroscope, Arthroscope, Cholecystectomy, Excision of basal cell carcinoma, Rotator cuff structure of left shoulder, Tonsillectomy with adenoidectomy. What to do next Scheduled Follow-Up Appointments Sunday. 2024 8:45 AM EDT With: DOUG NATHAN, Juan Phan Where: [facility] [address] [place] [address]- Medications What How Much When Why Instructions Changed aspirin (aspirin 81 mg Oral EC Tab) 1 Tablets By Mouth 2 times a day Changed rosuvastatin (Crestor) 20 Milligram By Mouth At bedtime Changed tamsulosin (Flomax 0.4 mg Cap) 1 Capsules By Mouth 2 times a day Pickup at [facility][id number] Unchanged docusate (Colace 100 mg Cap) 1 Capsules By Mouth 2 times a day as needed for for constipation Unchanged hydrochlorothiazide (hydrochlorothiazide 25 mg Tab) 1 Tablets By Mouth Every day Unchanged levothyroxine (levothyroxine 75 mcg (0.075 mg) Tab) 1 Tablets By Mouth Every day Unchanged pyridoxine (Vitamin B6) 100 Milligram By Mouth 2 times a day Unchanged tadalafil (Cialis 20 mg Tab) 1 Tablets By Mouth As Directed as needed for erectile dysfunction Erectile dysfunction Unchanged ubiquinone (CoQ10) 300 Milligram By Mouth Every day Pharmacy Information [facility] #[id number]: [address], [place] [id number] [phone] Allergies Compazine (pt states family hx he has never had. sister x2 severe reaction muscle rigidity) Percocet 5/325 (N&V - Nausea and vomiting) codeine (Nausea present) penicillins (fever) Problems Ongoing - Any problem that you are currently receiving treatment for. BPH with urinary obstruction Elevated PSA Erectile dysfunction History of skin cancer Hyperlipemia Hypothyroidism Kidney stone Microhematuria Nocturia Patient Survey You may receive a survey via text or e-mail asking about your office visit. Please share your experience with us by completing your survey. We appreciate your feedback and thank you for choosing us for your care. UROLOGY OFFICE/CLINIC NOTE Observed: 9:52 AM Status: F Source: [facility] Urology Office/Clinic Note Chief Complaint 7 month f/u HPI Staff 7 month f/u with PSA and KUB. Denies any kidney stones at this time. Dx: elevated PSA, BPH with urinary obstruction, kidney stone and ED PSA: 04/15/21 - 2.07 05/03/22 - 2.63 05/24/23 - 2.08 10/29/23 - 3.70 05/21/24 - 3.62 Dysuria: denies Incomplete bladder emptying: denies Hematuria: denies Frequency: denies Urgency: yes, occasionally Nocturia: rarely Stream: denies Leaking: denies now, had very little leaking after hip surgery 2 months ago, has since resolved. Post void dripping: denies Wearing pads/ Depends: denies Urge incontinence: had one episode after hip surgery, since resolved, no issues Stress incontinence: denies Incontinence without Sensory Awareness: denies Abdominal pain: denies Flank pain: denies History of Present Illness Tests reviewed: reviewed UA, PSA, KUB I have reviewed the previous health record information and history for this patient from Dr. Beaver. I have reviewed and verified the staff HPI to be accurate for this encounter. Review of Systems PHQ Score Initial [...] See HPI. Physical Exam Vitals & Measurements T: 37 ???C(Oral) HR: 81(Peripheral) RR: 18 BP: 132/86 HT: 70 in HT: 178 cm WT: 103 kg WT: 227.076 lb BMI: 32.51 General Appearance: alert, no distress, well nourished, well developed male. Assessment/Plan Pt goes to [facility] from July to October. 1. Elevated PSA (R97.20: Elevated prostate specific antigen [PSA]) PSA: 04/15/21 - 2.07 05/03/22 - 2.63 05/24/23 - 2.08 10/29/23 - 3.70 05/21/24 - 3.62 CARMEN 11/02/23: 40g, no nodules. PSA remains stable. Will continue to monitor. -PSA in 6 mos 2. BPH with urinary obstruction (N40.1: Benign prostatic hyperplasia with lower urinary tract symptoms) UA today shows trace-intact blood (clinically neg), neg for infections. Taking Flomax 0.4mg bid. Did have some UUI after hip surgery 2 months ago. No bother with urination at this time. -Cont Tamsulosin bid. Call for refills. 3. Kidney stone (N20.0: Calculus of kidney) Hx of kidney stones with multiple lithotripsy procedures in the past. KUB 05/03/22 - several tiny calcifications projecting over left kidney. No right renal or ureteral calcifications. KUB 05/24/23 - small right calcification projecting over kidney. Several small left stones projecting over kidney. KUB 10/29/23 - multiple stable left nephroliths measuring up to 4 mm. KUB 05/23/24 [facility] - Stable appearance of several small stones within L kidney. Reviewed imaging results. Stones appear unchanged. Thinks he passed a stone a few months ago, did catch it but did not bring it for analysis. Denies experiencing pain with passage. States he has never had significant pain with stone passage. -Pt to drop off stone for analysis, order provided today. -KUB in 6 mos 4. Erectile dysfunction (N52.9: Male erectile dysfunction, unspecified) Started on Cialis 20mg prn at prior OV. No concerns. Call for refills. Follow-up With When Contact Information DOUG NATHAN, Juan Phan, [facility] [address], [place] [phone] Additional Instructions: 6 mos w/ PSA and KUB Patient Education Kidney Stones, [id number] I, Ashley Ho, personally scribed for Dr. Beaver on 05/26/2024 09:53:15. . Documentation recorded by the scribe, Ashley Ho, accurately reflects the services(s) I performed and decisions made by me. Authenticated by Dr. Beaver on 05/26/2024 09:58:31. Problem List/Past Medical History Ongoing BPH with urinary obstruction Elevated PSA Erectile dysfunction History of skin cancer Hyperlipemia Hypothyroidism Kidney stone Microhematuria Nocturia Historical No qualifying data Procedure/Surgical History Total hip replacement (03/18/2024), ESWL - Extracorporeal shockwave lithotripsy for renal calculus (06/16/2021), Right knee arthroscopy with partial medial meniscectomy in addition to chondroplasty, patellofemoral articulation (11/29/2016), Left hip arthroplasty (02/15/2016), ESWL of kidney (11/2012), ESWL of kidney (07/24/2010), Cystoscopic removal of ureteric stent (01/27/2008), Cystoscope (01/20/2008), Cystoscope (02/14/2007), Lithotripsy of kidney (01/24/2007), Arthroscope, Arthroscope, Cholecystectomy, Excision of basal cell carcinoma, Rotator cuff structure of left shoulder, Tonsillectomy with adenoidectomy. Medications aspirin 81 mg Oral EC Tab, 81 mg= 1 tab(s), Oral, BID Cialis 20 mg Tab, 20 mg= 1 tab(s), Oral, As Directed, PRN, 3 refills Colace 100 mg Cap, 100 mg= 1 cap(s), Oral, BID, PRN CoQ10, 300 mg, Oral, Daily Crestor, 20 mg, Oral, Bedtime Flomax 0.4 mg Cap, 0.4 mg= 1 cap(s), Oral, BID, 3 refills hydrochlorothiazide 25 mg Tab, 25 mg= 1 tab(s), Oral, Daily levothyroxine 75 mcg (0.075 mg) Tab, 75 mcg= 1 tab(s), Oral, Daily Vitamin B6, 100 mg, Oral, BID Allergies Compazine (pt states family hx he has never had. sister x2 severe reaction muscle rigidity) Percocet 5/325 (N&V - Nausea and vomiting) codeine (Nausea present) penicillins (fever) Social History Alcohol - Medium Risk, 11/29/2016 Current. Beer. 1-2 times per week., 05/22/2024 Substance Abuse - Denies Substance Abuse, 01/26/2016 Never., 05/22/2024 Tobacco - Denies Tobacco Use, 01/26/2016 Never (less than 100 in lifetime) Tobacco Use:. Never Smokeless Tobacco Use:., 05/26/2024 Family History Acute myocardial infarction: Mother, Father and Grandparent. Cardiac arrest: Brother. Diabetes mellitus type 2: Father. Primary malignant neoplasm of female breast: Sister. Primary malignant neoplasm of skin: Father. Stroke: Grandparent. Immunizations Vaccine Date Status Comments influenza virus vaccine, inactivated 06/07/2022 Recorded SARS-CoV-2 (COVID-19) [id number] 04/03/2022 Recorded 2023-11-02: [id number] influenza virus vaccine, inactivated - Not Given Temporary contraindication - reschedule influenza virus vaccine, inactivated 06/24/2021 Recorded SARS-CoV-2 (COVID-19) mRNA-1273 vaccine 05/02/2021 Recorded SARS-CoV-2 (COVID-19) mRNA-1273 vaccine 09/15/2020 Recorded SARS-CoV-2 (COVID-19) mRNA-1273 vaccine 08/18/2020 Recorded influenza virus vaccine, inactivated 04/25/2019 Recorded influenza virus vaccine, inactivated 07/16/2018 Recorded influenza virus vaccine, inactivated 07/07/2016 Recorded influenza virus vaccine, inactivated 06/22/2015 Recorded Lab Results Ambulatory Point of Care Results Bilirubin Urine Dipstick: 1+ Small (05/26/24 09:15:00) Blood Urine Dipstick: Trace-intact (05/26/24 09:15:00) Glucose Urine Dipstick: Negative (05/26/24 09:15:00) Ketones Urine Dipstick: Negative (05/26/24 09:15:00) Leukocytes Urine Dipstick: Negative (05/26/24 09:15:00) Protein Urine Dipstick: 1+ (30 mg/dl) (05/26/24 09:15:00) Specific [place] Urine Dipstick: >=1.030 (05/26/24 09:15:00) Urine Appearance Urine Dipstick: Clear (05/26/24 09:15:00) Urine Color Urine Dipstick: Yellow (05/26/24 09:15:00) Urobilinogen Urine Dipstick: Normal 0.2-1 EU/dl (05/26/24 09:15:00) pH Urine Dipstick: 5.5 (05/26/24 09:15:00) Result Comment: Electronical ly Signed By: Juan BEAVER MD\.br\Date and Time Signed: 05/26/24 09:58 EST\.br\Electronically Co-Signed By: Ashley Ho\.br\Date and Time Co-Signed: 05/26/24 09:53 EST\.br\Electronically Co-Signed By: Ashley Ho\.br\Date and Time Co-Signed: 05/26/24 09:54 EST PATIENT EDUCATION Observed: 05/26/2024 9:43 AM Status: F Source: [facility] Patient Education Urology Kidney Stones Kidney stones are rock-like masses that form inside of the kidneys. Kidneys are organs that make pee (urine). A kidney stone may move into other parts of the urinary tract, including: ??? The tubes that connect the kidneys to the bladder (ureters). ??? The bladder. ??? The tube that carries urine out of the body (urethra). Kidney stones can cause very bad pain and can block the flow of pee. The stone usually leaves your body through your pee. A doctor may need to take out the stone. What are the causes? Kidney stones may be caused by: ??? Too much calcium in the body. This may be caused by too much parathyroid hormone in the blood. ??? Uric acid crystals in the bladder. The body makes uric acid when you eat certain foods. ??? Narrowing of one or both of the ureters. ??? A kidney blockage that you were born with. ??? Past surgery on the kidney or the ureters. What increases the risk? You are more likely to develop this condition if: ??? You have had a kidney stone in the past. ??? Other people in your family have had kidney stones. ??? You do not drink enough water. ??? You eat a diet that is high in protein, salt (sodium), or sugar. ??? You are very overweight (obese). What are the signs or symptoms? Symptoms of a kidney stone may include: ??? Pain in the side of the belly, right below the ribs. Pain usually spreads to the groin. ??? Needing to pee often or right away. ??? Pain when peeing. ??? Blood in your pee. ??? Feeling like you may vomit (nauseous). ??? Vomiting. ??? Fever and chills. How is this treated? Treatment depends on the size, location, and makeup of the kidney stones. The stones will often pass out of the body when you pee. You may need to: ??? Drink more fluid to help pass the stone. ? In some cases, you may be given fluids through an IV tube at the hospital. ??? Take medicine for pain. ??? Change your diet to help keep kidney stones from coming back. Sometimes, you may need: ??? A procedure to break up kidney stones using a beam of light (laser) or shock waves. ??? Surgery to remove the kidney stones. Follow these instructions at home: Medicines ??? Take vnll-ech-qdbrakk and prescription medicines only as told by your doctor. ??? Ask your doctor if the medicine prescribed to you requires you to avoid driving or using machinery. Eating and drinking ??? Drink enough fluid to keep your pee pale yellow. ? You may be told to drink at least 8?10 glasses of water each day. This will help you pass the stone. ??? If told by your doctor, change your diet. You may be told to: ? Limit how much salt you eat. ? Eat more fruits and vegetables. ? Limit how much meat, poultry, fish, and eggs you eat. ??? Follow instructions from your doctor about what you may eat and drink. General instructions ??? Collect pee samples as told by your doctor. You may need to collect a pee sample: ? 24 hours after a stone comes out. ? 8?12 weeks after a stone comes out, and every 6?12 months after that. ??? Strain your pee every time you pee. Use the strainer that your doctor recommends. ??? Do not throw out the stone. Keep it so that it can be tested by your doctor. ??? Keep all follow-up visits. You may need X-rays and ultrasounds to make sure the stone has come out. How is this prevented? To prevent another kidney stone: ??? Drink enough fluid to keep your pee pale yellow. This is the best way to prevent kidney stones. ??? Eat healthy foods. ??? Avoid certain foods as told by your doctor. You may be told to eat less protein. ??? Stay at a healthy weight. Where to find more information ??? National Kidney Foundation (NKF): kidney.org ??? Urology Care Foundation (UCF): urologyhealth.org Contact a doctor if: ??? You have pain that gets worse or does not get better with medicine. Get help right away if: ??? You have a fever or chills. ??? You get very bad pain. ??? You get new pain in your belly. ??? You faint. ??? You cannot pee. This information is not intended to replace advice given to you by your health care provider. Make sure you discuss any questions you have with your health care provider. Document Revised: 02/16/2023 Document Reviewed: 02/16/2023 [email or web address] Patient Education ? 2023 [employer]. PROCEDURAL Observed: 03/18/2024 2:43 PM Status: F Source: [facility] Procedural Patient: GERRY LAY Age: 73 years [...] Using maximal sterile barrier technique per current CMS guidelines including hand hygeine, Guidance (Ultrasound used [...] The patient tolerated the procedure as expected. PROGRESS NOTE-PHYSICIAN Observed: 2023 2:41 PM Status: F Source: [facility] Progress Note-Physician Patient: GERRY LAY Age: 73 years Sex: Male : 1950 Associated Diagnoses: None Author: Aj NATHAN, Lucas Matias Postoperative Information Postoperative disposition: Postoperative disposition: To PACU. Optimetrix number: Optimetrix number [id number]. Anesthetic utilized: General. Regional: FIB . Health [...] when meets criteria ( To home ). Result Comment: Electronical ly Signed By: Aj NATHAN, Lucas Matias\.br\Date and Time Signed: 03/18/24 14:43 EDT INTERDISCIPLINARY NOTE - PT Observed: 2:39 PM Status: F Source: [facility] Interdisciplinary Note - PT PT evaluation completed with an [facility] score of 18. Pt able to ambulate 75 ft with CGA and FWW. Pt would be functionally safe to be discharged home with caregiver assist and [id number] to follow. DISCHARGE INSTRUCTIONS Observed: 024 11:31 AM Status: F Source: [facility] Discharge Instructions GERRY LAY :1950 Visit Date:03/18/2024 [...] Sunday 8:45 AM EST With: DOUG NATHAN, Juan Phan Where: [facility] [address] [address]- New Follow Up Appointments after Discharge Follow Up with Bunny Hewitt When: 04/16/2024 02:30 PM EDT Comments: Appointment has already been scheduled. Call for any problems. Where: [address] [place] [phone] Business (1) Medications What How Much When Why Instructions Next Dose New aspirin (aspirin 81 mg Oral EC Tab) 1 Tablets By Mouth 2 times a day Pickup at [facility] #[id number] New cefadroxil (cefadroxil 500 mg Cap) 1 Capsules By Mouth Every 12 hours Duration: 2 Days Pickup at [facility] #6127 New docusate (Colace 100 mg Cap) 1 Capsules By Mouth 2 times a day as needed for for constipation Pickup at [facility] #6177 New oxycodone (oxyCODONE 5 mg Tab) 1 Tablets By Mouth As Directed 1-2 po q4-6 hrs prn pain Dx: M16.11, Z96.641 Duration: 7days Pickup at [facility] #[id number] Unchanged hydrochlorothiazide (hydrochlorothiazide 25 mg Tab) [...] Milligram By Mouth Every day Pharmacy Information [facility] #[id number]: [address], [place] [phone] Allergies Compazine (pt states family hx he [...] 0 DEGREE POLYETHYLENE INSERT 03/18/2024 Education Materials [place], [place] [facility] DISCHARGE INSTRUCTIONS HIP REPLACEMENT [...] After four or six weeks you may then progress to the use of one crutch, or a cane. A quad-cane is preferred as this is more stable. Physical therapy as begun in the hospital will continue at home, possible with the assistant director of admissions of Home Health Physical Therapy or in the hospital as an outpatient. When you have become independent with the physical therapy program, this will then be discontinued as a supervised program and you will be instructed to continue the physical therapy exercises at home. DRIVING: Do NOT Drive FOLLOW-UP OFFICE VISIT: 4 weeks Postop Bunny Hewitt, DO [facility] [address] [place], [place] [id number] Revised: 11-28 Common Emergency Awareness Tips IS IT A STROKE? Act FAST and Check for these signs: FACE Does the face look uneven? ARM Does one arm drift down? SPEECH Does their speech sound strange? TIME Call at any sign of stroke Heart Attack Signs Chest discomfort: Most heart attacks involve discomfort in the center of the chest and lasts more than a few minutes, or goes away and comes back. It can feel like uncomfortable pressure, squeezing, fullness or pain. Discomfort in upper body: Symptoms can include pain or discomfort in one or both arms, back, neck, jaw or stomach. Shortness of breath: With or without discomfort. Other signs: Breaking out in a cold sweat, nausea, or lightheaded. Remember, MINUTES DO MATTER. If you experience any of these heart attack warning signs, call to get immediate medical attention! Patient Survey You may receive a survey in the mail asking you about your stay with us. We want to hear from you, please share your experience with us by completing your survey. Thank you for choosing [facility]. [facility] Award Nomination The CURTIS (Diseases Attacking the Immune SYstem) Award is an international recognition program that honors and celebrates the skillful, compassionate care nurses provide every day. Anyone who experiences or observes amazing care being provided by a nurse is encouraged to submit a nomination. To nominate your nurse, use your smart phone to scan the QR code below. Patient Portal You may access all of your results and other medical record information on our secure patient portal. If you are not signed up for this yet, please contact [employer] at [phone] to get signed up today. Patient Name: ROSANNEGERRY Abram I have received this information and my questions have been answered. Patient/Travelers' Aid Worker Name: Patient/Travelers' Aid Worker Signature: Relationship to Patient: Witness Name/Signature: Date: Result Comment: Electronical ly Signed By: Anila Gilman RN.br\Date and Time Signed: 03/18/24 11:32 EDT PATIENT EDUCATION - TEXT Observed: 03/18 11:31 AM Status: C Source: [facility] Patient Education - Text [place], [place] [facility] DISCHARGE INSTRUCTIONS HIP REPLACEMENT [...] After four or six weeks you may then progress to the use of one crutch, or a cane. A quad-cane is preferred as this is more stable. Physical therapy as begun in the hospital will continue at home, possible with the assistant director of admissions of Home Health Physical Therapy or in the hospital as an outpatient. When you have become independent with the physical therapy program, this will then be discontinued as a supervised program and you will be instructed to continue the physical therapy exercises at home. DRIVING: Do NOT Drive FOLLOW-UP OFFICE VISIT: 4 weeks Postop Bunny Hewitt DO [facility] [address] [place] [address] Revised: 11-28 XR HIP 1 VIEW RIGHT + PELVIS Observed: 0 03/18/2024 10:41 AM Status: F Source: [facility] Exam Date/Time: 03/18/2024 10:56 EDT Reason for [...] in mGy = na DAP = na OPERATIVE REPORT Observed: 03/18/2024 10:22 AM Status: F Source: [facility] Operative Report SURGERY DATE: 03/18/2024 [employer]: Verna Cisneros C.F.A. PREOPERATIVE DIAGNOSIS: Right hip osteoarthritis POSTOPERATIVE DIAGNOSIS: Right hip osteoarthritis OPERATION: Right hip robotic-assisted total hip arthroplasty using Andrew, posterolateral approach ANESTHESIA: Spinal as well as fascia iliaca block ANESTHESIOLOGIST: Jeni ArndtACamilaACamila ESTIMATED BLOOD LOSS: 300 mL INTRAVENOUS FLUIDS: Please see operative record SPECIMEN: Bone and soft tissue DRAINS: None COMPLICATIONS: None IMPLANT: Glen Total Hip System with a size 56 [...] arthrosis. Total hip arthroplasty is done with muslim of limb stability, alignment and length. This is done with the [employer] robotic platform. The patient did tolerate the [...] the field. This is seated using the [employer] robotic assist. Adequate seating is identified. The [...] made. This is then trialed with a 127- degree neck angle. Adequate trialing is found to be with a 36+0 head. This did correlate with the preoperative plan after testing leg length once again. The decision on the stem is made. The canal is lavaged and the stem is impacted. The Biolox head is impacted over a cleansed, dried trunnion. The hip is located with muslim of limb stability, alignment and the length. The procedure is deemed adequate and complete. The checkpoints are removed individually. [id number] is utilized for the posterior capsule, piriformis, [...] neck. The fascial layer closed with #2 Quill. A small amount of the Zynrelef is injected at the base over the fascial incision after a lavage. The soft tissues are closed with 2-0 Quill. Skin is closed with 2-0 Monoderm. The anterior pelvic array sites are closed with 4-0 Monocryl. All wounds are dressed with Skin Affix. The iliac site is dressed with 4x4 and a Tegaderm. A Mepilex is applied to the main hip incision. The patient is placed in abduction pillow, is transferred to the [facility] and taken to the Post-Anesthesia Care Unit in stable condition. The patient is slated for home discharge this day. Yocasta Milan Dictated: 03/18/2024 [id number] Transcribed: 03/18/2024 Result Comment: Electronical ly Signed By: Bunny Hewitt DO\.br\Date and Time Signed: 03/19/24 07:15 EDT PROGRESS NOTE-PHYSICIAN Observed: 2023 10:22 AM Status: F Source: [facility] Progress Note-Physician Patient: GERRY LAY Age: 73 years Sex: Male : 1950 Associated Diagnoses: None Author: Bunny Hewitt DO Postoperative Information Procedure: R RA JAZIEL Preoperative Diagnosis: R hip OA. Postoperative Diagnosis: same. Performed by: bridgette. Order Checker: Patrice Cisneros. Specimens Removed: bone, soft tissue. Prosthesis: Glen. . Estimated Blood Loss: 300 ml. Complications: None. Anesthesia type: Spinal, fascia iliaca block. Result Comment: Electronical ly Signed By: Bunny Hewitt DO\.br\Date and Time Signed: 03/18/24 10:23 EDT SURGICAL PATHOLOGY REPORT Observed: 03/09 9:43 AM Status: F Source: [address] [place] [address]- Surgical Pathology Report Collected Date/Time: 03/18/2024 09:43 [...] tissue 2 - Bone after decalcification (DC) DC:[facility] Microscopic Description Microscopic examination performed unless gross only specified. Performed By: #### [id number] # ### [facility] [address] [place] [address] MAIN OR INTRAOPERATIVE RECORD Observed: 03/18/2024 9:09 AM Status: C Source: [facility] Main OR Intraoperative Recor d IntraOp Document Type FT Summary Primary Physician: Bunny Hewitt DO Finalized Date/Time: 03/20/24 10:47:20 Pt. Name: GERRY LAY/Sex: 1950 Male Med Rec #: [id number] Physician: Bunny Hewitt DO Financial #: [id number] Pt. Type: A Room/Bed: [place] [address] Admit/Disch: 03/18/24 05:49:12 - 03/18/24 14:50:00 Institution: Case Times FT Entry 1 Patient Times In Room 03/18/24 08:32:00 Out Room 03/18/24 10:31:00 Procedure Times Start 03/18/24 09:09:00 Stop 03/18/24 10:24:00 Anesthesia Times Start 03/18/24 08:32:00 Stop 03/18/24 10:31:00 Block Timeout w/ 03/18/24 08:15:00 Anesthesia Last Modified By: Homar STEPHENSON, Harika Aguilera 03/18/24 10:31:36 General Comments: block by dr veloz, assisted by danika sher, seema. heart rate 67, spo2 99% on 2lpm o2 via nasal cannula. seema barahona 03/20/24 Chart opened to review and send charges [facility]oth [facility]FA Case Attendance FT Entry 1 Entry 2 Entry 3 Case Attendee Regino Mast DO, David A Blayne MACHINE HEEL BUILDER, Verna Hi Role Performed Anesthesiologist Surgeon - Primary MACHINE HEEL BUILDER/SA Order Checker Time In 03/18/24 08:32:00 03/18/24 08:58:00 03/18/24 [...] 6 Case Attendee Homar STEPHENSON, Nohemi Bright MACHINE HEEL BUILDER, Gypsy Maldonado Role Performed Manager Marketing Communication - Primary Scrub - Primary Staff - [...] Aguilera 03/18/24 10:31:37 03/18/24 10:31:37 General Comments: glen spence, also in attendance. acrosby, product management intern Protocols FT Pre-Care Text: Implements protective [...] Given Participants Bunny Hewitt DO, Wilhelm CST, Homar Mclaughlin RN, Maryuri Albright Sydney A, Roth CST, [...] Last Modified By: Harika Graf RN 03/18/24 09:27:48 Post-Care Text: The patient is free from signs and symptoms of infection Skin Assessment (Pre Procedure) FT Pre-Care Text: Implements protective measures to prevent skin/ tissue injury due to thermal or mechanical sources Evaluates for signs and symptoms of physical injury to skin and tissue Entry 1 Skin Integrity Intact, Amasa, Warm, & Skin Abnormality Yes Dry Abnormality Location dry flaky skin and Outcomes Met? Yes redness at right lower leg Last Modified By: Harika Graf RN 03/18/24 09:15:25 Post-Care Text: The patient is free from signs and symptoms of injury caused by extraneous objects Patient Positioning FT Pre-Care Text: Identifies physical alterations that require additional precautions for procedure-specific positioning, verifies presence of prosthetics or corrective devices, positions the patient, evaluates the patient for signs and symptoms of injury as a result of positioning Entry 1 Procedure HIP TOTAL ROBOT Body Position Lateral, right side up ARTHROPLASTY(Right) Feet Uncrossed? Yes Left Arm Position Other/See Comments Right Arm Position Other/See Comments Left Leg Position Extended Right Leg Position Held on Field Positioning Device Gel Pads, Peg Board Hip Positioner, Pillow Under Head Large, Blankets Folded, Axillary Roll, Other/See Comments, Pillow Support Under Arm Press Points Checked Yes By Regino Mast, Homar STEPHENSON, Harika Aguilera, Marietta HENSON, Blayne Hebert CST, Krupa Mclaughlin Alfons Ii F, Bridgette SLATER, Bunny Puentes Outcomes Met? Yes Last Modified By: Harika Graf RN 03/18/24 09:21:54 Post-Care Text: The patient is free from signs and symptoms of injury related to positioning General Comments: folded blankets under pillow under head to support head in neutral position. left arm extended on padded armboard, slight flexion at elbow. attention paid to position of shoulder, patient verified shoulder in comfortable position. pillows over left arm to support right arm, towel with tape over it to secure. gel pad over pegboard. towel with tape to secure across right torso. folded blankets under left lower leg for support. folded blanket between lower legs. seema barahona Patient Care Devices FT Pre-Care Text: Implements protective measures to prevent skin/ tissue injury due to thermal or mechanical sources Entry 1 Entry 2 Entry 3 Equipment Type CAUTERY UNIT SOLIS SYSTEM INTELLICART SUCTION UNIT Equipment Number [facility] cart 1 Equipment Setting 60/60 Outcomes Met? Yes Yes Yes Last Modified By: Harika Graf RN, RN, Harika Morales RN 03/18/24 09:23:03 03/18/24 09:23:03 03/18/24 09:23:03 Entry 4 Entry 5 Entry 6 Equipment Type MISTRAL FORCED AIR MONITOR CHARGE SURGERY MORPHBOARD POSITIONER WARMING SYSTEM UNIT Equipment Number OB 1 OR 7 Equipment Setting 43 C /HIGH Outcomes Met? Yes Yes Yes Last Modified By: Harika Graf RN, RN, Harika Morales RN 03/18/24 09:23:03 03/18/24 09:23:03 03/18/24 09:23:03 Entry 7 Entry 8 Equipment Type ROBOT ANDREW SONOSITE ULTRASOUND UNIT Equipment Number Equipment Setting Outcomes Met? Yes Yes Last Modified By: Harika Graf RN, RN, Amy J 03/18/24 09:23:03 03/18/24 09:23:03 Post-Care Text: The patient is free from signs and symptoms of injury caused by extraneous objects Transport To OR FT Pre-Care Text: Transports according to individual needs. Evaluates for signs and symptoms of skin and tissue injury as a result of transfer or transport Entry 1 Via Cart By Harika Graf RN Safety Precautions Side Rails Up Outcomes Met? Yes Last Modified By: Harika Graf RN 03/18/24 09:23:17 Post-Care Text: The patient is free from signs and symptoms of injury related to transfer/transport Cautery FT Pre-Care Text: Implements protective measures to prevent injury due to electrical sources, and evaluates for signs and symptoms of electrical injury Entry 1 ESU Identification ESU Type CAUTERY UNIT Equipment Number VALLEY[employer] ESU Settings Cut 60 Coag 60 ESU Grounding Pad Site Right Upper Abdomen Hair Removal Pad No Site Pre Pad Site Clear and Intact Post Pad Site Clear and Intact Condition Condition Grounding Pad Harika Graf RN Placed By Outcomes Met? Yes Last Modified By: Harika Graf RN 03/18/24 09:25:04 Post-Care Text: The patient if free from signs and symptoms of electrical injury Counts Verification FT Pre-Care Text: Performs required counts Entry 1 Entry 2 Entry 3 Procedure(s) HIP TOTAL ROBOT HIP TOTAL ROBOT HIP TOTAL ROBOT ARTHROPLASTY(Right) ARTHROPLASTY(Right) ARTHROPLASTY(Right) Type Initial Closing Final Items Sponges, Sharps, Sponges, Sharps, Sponges, Sharps, Other/See Comments Other/See Comments Other/See Comments Status Correct Correct Correct Time By Harika Graf RN, Homar STEPHENSON, Homar Albright RN, Amy J, Dellinger, Nohemi Wahl, Nohemi A Maryuri, Nohemi A Outcomes Met? Yes Yes Yes Last Modified By: Harika Graf RN, RN, Amy J Crosby RN, Amy J 03/18/24 09:25:21 03/18/24 10:21:58 03/18/24 10:21:58 Post-Care Text: The patient is free from signs and symptoms of injury caused by extraneous objects Skin Prep FT Pre-Care Text: Performs skin preparations Entry 1 Procedure HIP TOTAL ROBOT Prep Area RIGHT Hip and full leg ARTHROPLASTY(Right) to and including foot Prep Agents Chloraprep/Dry Prior to Start Dry Time 03/18/24 09:03:00 Draping Stop Dry Time 03/18/24 09:06:00 Hair Removal Methods Not Indicated By Harika Graf RN Outcomes Met? Yes Last Modified By: Harika Graf RN 03/18/24 09:26:00 Post-Care Text: The patient is free from signs and symptoms of infection Departure From OR FT Pre-Care Text: Transports according to individual needs. Evaluates for signs and symptoms of skin and tissue injury as a result of transfer or transport. Entry 1 Via Cart Safety Precautions Side Rails Up PostOp Destination PACU Transported By Harika Graf RN, Regino Mast Patient Status Stable Skin. Condition Intact, Amasa, Warm, & Description UNCHANGED EXCEPT Dry SURGICAL INCISIONS Airway Maintenance Oxygen in Use? Yes Airway Device Simple Mask Flow Rate 8 L Outcomes Met? Yes Last Modified By: Harika Graf RN 03/18/24 10:22:41 Post-Care Text: The patient is free from signs and symptoms of injury related to transfer/transport General Comments: HANDOFF REPORT GIVEN TO PACU NURSE. SEEMA BARAHONA Dressing/Packing FT Pre-Care Text: Administers care to wound sites Entry 1 Entry 2 Type Dressing Immobilization Devices Items DRESSING MEPILEX AG 4 PILLOW ABDUCTION SMALL X 8 Site and Details MEPILEX TO LEFT HIP. ABDUCTION PILLOW 4X4 GAUZE AND OPSITE AT BETWEEN LEGS CHECKPOINT INCISIONS LEFT HIP. Outcomes Met? Yes Yes Last Modified By: Harika Graf RN, RN, Amy J 03/18/24 10:23:51 03/18/24 10:23:51 Post-Care Text: The patient is free from signs and symptoms of infection Medication Administration FT Pre-Care Text: Verifies allergies, administers prescribed medications and solutions, administers prescribed antibiotic therapy and immunizing agents as ordered, evaluates response to medications Administers prescribed medications and solutions Entry 1 Route of Admin Field Expiration Date Yes Verified Ordered By Bunny Hewitt DO Administered By Bunny Hewitt DO Outcomes Met? Yes Last Modified By: Harika Graf RN 03/18/24 09:26:16 Post-Care Text: The patient received appropriate medication(s) safely administered during the perioperative period For [place] please see scanned medication reconcilliation form for medications used at the field during the procedure. Implant Log FT Pre-Care Text: Records devices implanted during the operative or invasive procedure Entry 1 Entry 2 Entry 3 Procedure HIP TOTAL ROBOT HIP TOTAL ROBOT HIP TOTAL ROBOT ARTHROPLASTY(Right) ARTHROPLASTY(Right) ARTHROPLASTY(Right) Implant/Explant Implant Implant Implant Implant Identification FT Description TRIDENT X3 0 DEGREE TRIDENT II TRITANIUM 6.5MM LOW PROFILE HEX POLYETHYLENE INSERT CLUSTERHOLE ACETABULAR SCREW SHELL Serial Number Lot Number [id number] Load Number Milled Rice Broker GLEN GLEN GLEN Catalog ?# [id number] Size 36MM 56MM 30MM Expiration Date 04/01/28 12/24/28 08/14/27 Manufactured Date Materials Unique Device Identifier (MARIA DEL CARMEN) Human Readable Barcode Machine Readable Barcode Usage Data FT Implant Site Hip R Hip R Hip R Implant Site Comment Quantity 1 1 1 Implant/Explant Date Implanted By Bunny Hewitt DO, DO, David A Pocos DO, David A Explant Reason Biological Implants Biological Source Donor Number MR Classification Temperature Reconstitution Method Outcomes Met? Yes Yes Yes Milled Rice Broker Model Number Last Modified By: Homar STEPHENSON, Harika Graf RN, Harika Morales RN 03/18/24 09:45:32 03/18/24 09:45:32 03/18/24 09:45:32 Entry 4 Entry 5 Entry 6 Procedure HIP TOTAL ROBOT HIP TOTAL ROBOT HIP TOTAL ROBOT ARTHROPLASTY(Right) ARTHROPLASTY(Right) ARTHROPLASTY(Right) Implant/Explant Implant Implant Implant Implant Identification FT Description 6.5MM LOW PROFILE HEX ACCOLADE II 127 DEGREE BIOLOX DELTA CERAMIC SCREW NECK ANGLE HIP STEM V40 FEMORAL HEAD Serial Number Lot Number [id number] Load Number Milled Rice Broker GLEN GLEN GLEN Catalog ?# [id number] Size 30MM 8 36MM +0MM Expiration Date 02/19/28 03/05/28 08/28/28 Manufactured Date Materials Unique Device Identifier (MARIA [employer] CARMEN) Human Readable Barcode Machine Readable Barcode Usage Data FT Implant Site Hip R Hip R Hip R Implant Site Comment Quantity 1 1 1 Implant/Explant Date Implanted By Bunny Hewitt DO, DO, Bunny Joe DO Explant Reason Biological Implants Biological Source Donor Number MR Classification Temperature Reconstitution Method Outcomes Met? Yes Yes Yes Milled Rice Broker Model Number Last Modified By: Harika Graf RN, RN, Harika Morales RN 03/18/24 09:45:32 03/18/24 10:01:16 03/18/24 10:01:16 Post-Care Text: The patient is free from signs and symptoms of injury caused by extraneous objects Cultures & Specimens FT Pre-Care Text: Manages specimen handling and disposition Manages culture specimen collection Entry 1 Cultures Ordered No Specimens Ordered Yes Specimen Disposition Designated OR Area Frozen Section Times Outcomes Met? Yes Last Modified By: Harika Graf RN 03/18/24 09:27:07 Post-Care Text: The patient is free from signs and symptoms of injury caused by extraneous objects The patient is free from signs and symptoms of infection Temperature Control Entry 1 Temperature Control BLANKET MISTRAL AIR Quantity 1 Aid TORSO Fluid/[place] Unit Mistral warming system Setting 43 c /high Body Site Other, see comments Comments right lateral torso Last Modified By: Harika Graf RN 03/18/24 09:27:36 Sign Out FT Entry 1 Before Patient Leaves OR Nurse verbally Yes Nurse verbally Yes confirms with the confirms with the team the name of team that the procedure(s) instrument, sponge, recorded and needle counts are correct (or N/A) Nurse verbally Yes Nurse verbally n/a confirms with the confirms with the team how the team whether there specimen is labeled are any equipment (including patient problems to be name), if applicable addressed Sign Out Complete 03/18/24 10:20:00 Last Modified By: Harika Graf RN 03/18/24 10:31:58 Case Comments <None> Finalized By: Gypsy Mcmanus CST Document Signatures Signed By: Harika Graf RN 03/18/24 10:32 Gypsy Mcmanus CST 03/20/24 10:47 MAIN OR PACU II RECORD Observed: 024 9:09 AM Status: F Source: [facility] Main OR PACU II Record PACU Phase II Document Type FT Summary Primary Physician: Bunny Hewitt DO Finalized Date/Time: 03/18/24 14:53:34 Pt. Name: GERRY LAY/Sex: 1950 Male Med Rec #: [id number] Physician: Bunny Hewitt DO Financial #: [id number] Pt. Type: A Room/Bed: [place] [address] Admit/Disch: 03/18/24 05:49:12 - 03/18/24 14:50:00 Institution: [...] Signed By: Anila Gilman RN 03/18/24 14:53 MAIN OR PREOPERATIVE RECORD Observed: 9:09 AM Status: F Source: [facility] Main OR Preoperative Record PreOp Document Type FT Summary Primary Physician: Bunny Hewitt DO Finalized Date/Time: 03/18/24 09:30:10 Pt. Name: GERRY LAY./Sex: 1950 Male Med Rec #: [id number] Physician: Bunny Hewitt DO Financial #: [id number] Pt. Type: A Room/Bed: [place] [address] Admit/Disch: 03/18/24 05:49:12 - Institution: Case Times [...] Signed By: Harika Graf RN 03/18/24 09:30 MAIN OR PACU I RECORD Observed: 03/18/20 9:09 AM Status: F Source: [facility] Main OR PACU I Record PACU Phase I Document Type FT Summary Primary Physician: Bunny Hewitt DO Finalized Date/Time: 03/18/24 12:29:03 Pt. Name: GERRY LAY Abram [place]ward/Sex: 1950 Male Med Rec #: [id number] Physician: Bunny Hewitt DO Financial #: [id number] Pt. Type: A Room/Bed: 11/06 Admit/Disch: 03/18/24 [...] Signed By: Eden Avila RN 03/18/24 12:29 PROGRESS NOTE-PHYSICIAN Observed: 2023 9:03 AM Status: F Source: [facility] Progress Note-Physician Patient: GERRY LAY Age: 73 years [...] BIDWM, Routine, Start date 03/18/24 8:00:00 EDT atorvastatin 40 mg Tab: 40 mg = 1 tab(s), Tab, Oral, Bedtime, Routine, Start date 03/18/24 21:00:00 EDT bisacodyl 5 mg Oral EC Tab: 10 [...] Cap, Oral, BID PRN Constipation, Routine, Start date 03/18/24 7:50:00 EDT ferrous sulfate 325 mg Tab: [...] dysfunction, # 30 tab(s), Refills(s) 3, [facility]acy: [facility]/pharmacy #[id number], 178, cm, 11/02/23 11:57:00 EDT, Height/Length Dosing, 102, kg, 11/02/23 11:57:00 EDT, Weight Dosing Colace 100 mg Cap: 100 mg = 1 cap(s), Oral, BID, PRN for constipation, # 40 cap(s), Refills(s) 0, Pharmacy: [facility]/pharmacy #[id number], 177.5, cm, 02/18/24 14:14:00 EDT, Height/Length Dosing, 111.4, kg, 02/18/24 14:14:00 EDT, Weight Dosing Flomax 0.4 mg Cap: 0.4 mg = 1 cap(s), Oral, BID, # 180 cap(s), Refills(s) 3, Pharmacy: [facility]/pharmacy #[id number], 178, cm, 11/02/23 11:57:00 EDT, Height/Length Dosing, 102, kg, 11/02/23 11:57:00 EDT, Weight Dosing aspirin 81 mg Oral EC Tab: 81 mg = 1 tab(s), Oral, BID, # 60 tab(s), Refills(s) 0, Pharmacy: [facility]/pharmacy #[id number], 177.5, cm, 02/18/24 14:14:00 EDT, Height/Length Dosing, 111.4, kg, 02/18/24 14:14:00 EDT, Weight Dosing cefadroxil 500 mg Cap: 500 mg = 1 cap(s), Oral, q12hr, X 2 day(s), # 4 cap(s), Refills(s) 0, Pharmacy: [facility]/pharmacy #[id number], 177.5, cm, 02/18/24 14:14:00 EDT, Height/Length Dosing, 111.4, kg, 02/18/24 14:14:00 EDT, Weight Dosing oxyCODONE 5 mg Tab: 5 mg = 1 tab(s), Oral, As Directed, 1-2 po q4-6 hrs prn pain Dx: M16.11, Z96.641 Duration: 7days, # 40 tab(s), Refills(s) 0, Pharmacy: [facility]/pharmacy #[id number], 177.5, cm, 02/18/24 14:14:00 EDT, Height/Length Dosing, 111.4, kg, 02/18/24 14:14:00 EDT, We... Documented Medications Documented CoQ10: 300 mg, Oral, Daily, Refills(s) 0, Prophylaxis Crestor: 20 mg, Oral, Bedtime, Refills(s) 0, High cholesterol Vitamin B6: 100 mg, Oral, BID, Refills(s) 0, Prophylaxis hydrochlorothiazide 25 mg Tab: 25 mg = 1 tab(s), Oral, Daily, Refills(s) 0 levothyroxine 75 mcg (0.075 mg) Tab: 75 mcg = 1 tab(s), Oral, Daily, Thyroid, Home Medications (11) Active aspirin 81 mg Oral EC Tab 81 mg = 1 tab(s), Oral, BID cefadroxil 500 mg Cap 500 mg = 1 cap(s), Oral, q12hr Cialis 20 mg Tab 20 mg = 1 tab(s), PRN, Oral, As Directed Colace 100 mg Cap 100 mg = 1 cap(s), PRN, Oral, BID CoQ10 300 mg, Oral, Daily Crestor 20 mg, Oral, Bedtime Flomax 0.4 mg Cap 0.4 mg = 1 cap(s), Oral, BID hydrochlorothiazide 25 mg Tab 25 mg = 1 tab(s), Oral, Daily levothyroxine 75 mcg (0.075 mg) Tab 75 mcg = 1 tab(s), Oral, Daily oxyCODONE 5 mg Tab 5 mg = 1 tab(s), Oral, As Directed Vitamin B6 100 mg, Oral, BID , Medications (21) Active Scheduled: (10) acetaminophen 325 mg Tab UD [F] 650 mg 2 tab(s), Oral, q6hr ascorbic acid 500 mg Tab [F] 500 mg 1 tab(s), Oral, BIDWM atorvastatin 40 mg Tab [F] 40 mg 1 tab(s), Oral, Bedtime ceFAZolin + Premix Sodium Chloride 0.9% Diluent 100 mL 3 gram 100 mL, IV Piggyback, PREOP ceFAZolin + Sodium Chloride 0.9% Minibag 50 mL 2 gram 1 EA, IV Piggyback, q8hr ferrous sulfate 325 mg Tab [F] 325 mg 1 tab(s), Oral, BIDWM hydroCHLOROthiazide 25 mg Tab [F] 25 mg 1 tab(s), Oral, Daily levothyroxine 75 mcg (0.075 mg) Tab [F] 75 mcg 1 tab(s), Oral, Daily pantoprazole [address] Tab [F] 40 mg 1 tab(s), Oral, Daily tamsulosin 0.4 mg Cap [F] 0.4 mg 1 cap(s), Oral, BID Continuous: (3) Lactated Ringers 1,000 mL 1,000 mL, IV, 150 mL/hr Lactated Ringers 1,000 mL 1,000 mL, IV, 80 mL/hr Lactated Ringers 1,000 mL 1,000 mL, IV, 100 mL/hr PRN: (8) bisacodyl 5 mg Oral EC Tab [F] 10 mg 2 tab(s), Oral, Once docusate sodium 100 mg Cap [F] 100 mg 1 cap(s), Oral, BID HYDROmorphone 1 mg/mL SOLN [F] 0.4 mg 0.4 mL, IV Push, q4min magnesium hydroxide 8% Oral Susp 30 mL [F] 30 mL, Oral, BID ondansetron 2 mg/mL Inj [F] 4 mg 2 mL, IV Push, q6hr ondansetron 2 mg/mL Inj [F] 4 mg 2 mL, IV Push, Once oxyCODONE 5 mg Tab UD [F] 5 mg 1 tab(s), Oral, q4hr oxyCODONE 5 mg Tab UD [F] 10 mg 2 tab(s), Oral, q4hr Problem list: All Problems BPH with urinary obstruction / SNOMED CT 6498825852 / Confirmed Elevated PSA / SNOMED CT 6675656318 / Confirmed Erectile dysfunction / SNOMED CT 5973465121 / Confirmed History of skin cancer / SNOMED CT 4579407985 / Confirmed Hx of hypercholesterolemia / SNOMED CT 9632488482 / Confirmed Hyperlipemia / SNOMED CT 39246789 / Confirmed Hypothyroidism / SNOMED CT 20740896 / Confirmed Kidney stone / SNOMED CT 457151566 / Confirmed in 2012 Microhematuria / SNOMED CT 748209504 / Confirmed Nocturia / SNOMED CT 798914921 / Confirmed, Active Problems (10) BPH with urinary obstruction Elevated PSA Erectile dysfunction History of skin cancer Hx of hypercholesterolemia Hyperlipemia Hypothyroidism Kidney stone Microhematuria Nocturia Histories Past Medical History: No active or resolved past medical history items have been selected or recorded. Family History: Primary malignant neoplasm of skin Father Diabetes mellitus type 2 Father Primary malignant neoplasm of female breast Sister Stroke Grandparent Acute myocardial infarction Mother Father Grandparent Cardiac arrest Brother Procedure history: ESWL - Extracorporeal shockwave lithotripsy for renal calculus ([id number]) on 06/16/2021 at 70 Years. Right knee arthroscopy with partial medial meniscectomy in addition to chondroplasty, patellofemoral articulation on 11/29/2016 at 65 Years. Left hip arthroplasty on 02/15/2016 at 65 Years. Lt. ESWL of kidney ([id number]) in the month of 11/2012 at 61 Years. Lt. ESWL of kidney ([id number]) on 07/24/2010 at 59 Years. Cystoscopic removal of ureteric stent ([id number]) on 01/27/2008 at 57 Years. Cystoscope/Lt. RG/ Lt. ureteroscopy/Homium laser/Lt. stent placement ([id number]) on 01/20/2008 at 57 Years. Cystoscope/ureter stone extraction/holmium laser/Lt. stent removal ([id number]) on 02/14/2007 at 56 Years. Lt. Lithotripsy of kidney ([id number]) on 01/24/2007 at 56 Years. Arthroscope ([id number]). Comments: 01/26/2016 12:24 EDT - Julio STEPHENSON, Alondra B/erma knees, left shoulder Cholecystectomy ([id number]). Tonsillectomy with adenoidectomy ([id number]). Excision of basal cell carcinoma (320608698). Rotator cuff structure of left shoulder ([id number]). Arthroscope knee left ([id number]). Social History Social & Psychosocial Habits Alcohol 01/26/2016 Use: Current Type: Beer Frequency: 1-2 times per week Comment: socially - 01/26/2016 12:32 - Alondra Kim RN 11/29/2016 Risk Assessment: Medium Risk Substance Abuse 01/26/2016 Risk Assessment: Denies Substance Abuse Tobacco 01/26/2016 Risk Assessment: Denies Tobacco Use 11/02/2023 Tobacco Use: Never (less than 100 in l Smokeless tobacco use: Never Type: Cigarettes Concerns about tobacco use in household: No Smoking Cessation Yes . Physical Examination Vital Signs 03/18/2024 6:21 EDT Heart Rate Monitored 75 bpm Systolic Blood Pressure 152 mmHg HI Diastolic Blood Pressure 80 mmHg Blood Pressure Location Left arm Mean Arterial Pressure, Monitered 104 mmHg 03/18/2024 6:21 EDT Heart Rate Monitored 71 bpm SpO2 94 % 03/18/2024 6:20 EDT Respiratory Rate 16 br/min 03/18/2024 6:19 EDT Temperature Axillary 36.4 DegC 03/18/2024 6:19 EDT Systolic Blood Pressure 153 mmHg [place] Diastolic Blood Pressure 82 mmHg Blood Pressure Location Right arm Mean Arterial Pressure, Monitered 106 mmHg Vital Signs (last 24 hrs) Last Charted Temp Axillary 36.4 DegC (MAR 18 06:19) Heart Rate Monitored 75 bpm (MAR 18:) SBP H 152 mmHg (MAR 18:) DBP 80 mmHg (MAR 18:) Airway: Mallampati classification: III (soft palate, base of uvula visible). Respiratory: Lungs are clear to auscultation, Respirations are non-labored, adequate air exchange. Cardiovascular: Regular rhythm, No murmur. Review / Management Results review: No qualifying data available , Lab results 03/18/2024 6:35 EDT ABO/Rh Interp O POS ABSC Gel Interp Negative . Plan [place] [employer]esthesiologists (ASA) physical status classification: Class III. Anesthetic Preoperative Plan: Anesthesia. Regional Spinal, and Fascia Iliaca Block . Result Comment: Electronical ly Signed By: Aj NATHAN, Lucas Matias\.br\Date and Time Signed: 03/18/24 09:06 EDT ABO/RH HISTORY CHECK Collected: 03/18/2024 6:35 AM S tatus: F Source: [facility] TYPE CODE TESTS RESULT OUT OF RANGE REFERENCE UNITS LAB [id number](LOINC) ABO/Rh History Check Verified Hx Blood Type Normal Performed By: #### [id number] #### [facility] [address] [place] [address] ABSC Collected: 03/18/2024 6:35 AM Status: F Source: [facility] TYPE CODE TESTS RESULT OUT OF RANGE REFERENCE UNITS LAB [id number](LOINC) ABSC Gel Interp Negative Normal Performed By: #### [id number] #### [facility] [address] [place] [address] ABO/RH Collected: 6:35 AM Status: F Source: [facility] TYPE CODE TESTS RESULT OUT OF RANGE REFERENCE UNITS LAB [id number](LOINC) ABO/Rh O POS Unknown Performed By: #### [id number] # ### [facility] [address] [place] [address] BLOOD BANK ID# Collected: 6:35 AM Status: F Source: [facility] TYPE CODE TESTS RESULT OUT OF RANGE REFERENCE UNITS LAB [id number](LOINC) BBID# [id number] Unknown Performed By: #### [id number] #### [facility] [address] [place] [address] PATIENT EDUCATION - TEXT Observed: 03/11 7:09 AM Status: F Source: [facility] Patient Education - Text [place], [place] [facility] DISCHARGE INSTRUCTIONS HIP REPLACEMENT [...] After four or six weeks you may then progress to the use of one crutch, or a cane. A quad-cane is preferred as this is more stable. Physical therapy as begun in the hospital will continue at home, possible with the assistant director of admissions of Home Health Physical Therapy or in the hospital as an outpatient. When you have become independent with the physical therapy program, this will then be discontinued as a supervised program and you will be instructed to continue the physical therapy exercises at home. DRIVING: Do NOT Drive FOLLOW-UP OFFICE VISIT: 4 weeks Postop Bunny Hewitt, DO [facility] [address] [place] [address] Revised: 11-28 CT LOWER EXTREMITY W/O CONTRAST RIGHT Observed: 02/18/2024 10:23 AM Status: F Source: [facility] Exam Date/Time: 02/18/2024 10:38 EDT Reason for [...] Zuniga MD Transcribed by: NICCI Technologist: WILMAR XR CHEST 2 VIEWS Observed: 02/18/2024 10:18 AM Status: F Source: [facility] Exam Date/Time: 02/18/2024 10:28 EDT Reason for [...] in mGy = na DAP = na UA WITH CULT RFLX Collected: 10:07 AM Status: F Source: [facility] TYPE CODE TESTS RESULT OUT OF RANGE REFERENCE UNITS LAB 9194-2([facility]) CLASS:TYPE:PT: URINE COLLECTION METHOD:NOM:* Clean Catch Normal LAB 78676-2([facility]) COLOR:TYPE:PT: URINE:NOM:AUTO Light-Yello w Normal Yellow Result Comment: Microscopic readings are only performed on those samples that meet specific criteria set forth by [facility]. LAB 60990-0([facility]) CLARITY:TYPE:P T:URINE:NOM: Clear Normal Clear LAB 5811-5([facility]) SPECIFIC GRAVITY:RDEN:P T:URINE:SEMIQN :TEST STRIP 1.023 Unknown 1.005-1.030 LAB 5803-2([facility]) PH:LSCNC:PT:UR INE:SEMIQN:BRAN T STRIP 5.0 Unknown 5.0-9.0 LAB 69876-0([facility]) PROTEIN:PRTHR: PT:URINE:ORD:T EST STRIP Negative Normal Negative mg/dL LAB 49570-6([facility]) GLUCOSE:PRTHR: PT:URINE:ORD:T EST STRIP Negative Normal Negative mg/dL LAB 90055-3([facility]) KETONES:PRTHR: PT:URINE:ORD:T EST STRIP.AUTOMATE D Negative Normal Negative mg/dL LAB 98684-9([facility]) BILIRUBIN:PRTH R:PT:URINE:ORD :TEST STRIP.AUTOMATE D Negative Normal Negative mg/dL LAB 02474-5(LOINC) HEMOGLOBIN:MCN C:PT:URINE:ALBERTO IQN:TEST STRIP.AUTOMATE D Trace Abnormal Negative mg/dL LAB 85403-9([facility]) NITRITE:PRTHR: PT:URINE:ORD:T EST STRIP.AUTOMATE D Negative Normal Negative mg/dL LAB 18636-9([facility]) UROBILINOGEN:M CNC:PT:URINE:S EMIQN:TEST STRIP Negative Normal Negative mg/dL LAB 63138-8([facility]) LEUKOCYTE ESTERASE:PRTHR :PT:URINE:ORD: TEST STRIP.AUTOMATE D Negative Normal Negative CD:[id number] Performed By: #### [id number] #### [facility] [address] [place] [address] CBC W/ AUTO DIFF Collected: 02/18/2024 10:07 AM Stat us: F Source: [facility] TYPE CODE TESTS RESULT OUT OF RANGE REFERENCE UNITS LAB 71172-9([facility]) LEUKOCYTES^^RAYNA ECTED FOR NUCLEATED ERYTHROCYTES:NCN C:PT:BLD:QN:AUTO MATED COUNT 6.2 Normal 4.0-11.0 E9/L LAB 789-8([facility]) ERYTHROCYTES:NCN C:PT:BLD:QN:AUTO MATED COUNT 5.1 Normal 4.3-5.9 E12/L LAB 718-7([facility]) HEMOGLOBIN:MCNC: PT:BLD:QN: 16.3 Normal 13.5-17.5 gm/dL LAB 4544-3([facility]) HEMATOCRIT:VFR:P T:BLD:QN:AUTOMAT ED COUNT 47.7 Normal 37.7-49.0 % LAB 788-0([facility]) ERYTHROCYTE DISTRIBUTION WIDTH:RATIO:PT:R BC:QN:AUTOMATED COUNT 13.7 Normal 10.9-14.2 % LAB 785-6([facility]) ERYTHROCYTE MEAN CORPUSCULAR HEMOGLOBIN:ENTMA SS:PT:RBC:QN:AUT OMATED COUNT 32.1 Normal 27.0-34.0 pg LAB 786-4([facility]) ERYTHROCYTE MEAN CORPUSCULAR HEMOGLOBIN CONCENTRATION:MC NC:PT:RBC:QN:AUT OMATED COUNT 34.0 Normal 31.4-36.0 gm/dL LAB 787-2([facility]) ERYTHROCYTE MEAN CORPUSCULAR VOLUME:ENTVOL:PT :RBC:QN:AUTOMATE D COUNT 94.2 Normal 80.0-100.0 fL LAB 70592-1([facility]) PLATELET MEAN VOLUME:ENTVOL:PT :BLD:QN:AUTOMATE D COUNT 8.7 Normal 6.4-10.8 fL LAB 777-3([facility]) PLATELETS:NCNC:P T:BLD:QN:AUTOMAT ED COUNT 176.0 Normal 150.0-500.0 E9/L LAB 73520-0([facility]) NEUTROPHILS/100 LEUKOCYTES:NFR:P T:BLD:QN: 67.4 Normal 36.0-75.0 % LAB 731-0([facility]) LYMPHOCYTES:NCNC :PT:BLD:QN:AUTOM ATED COUNT 20.2 Normal 14.0-50.0 % LAB 742-7(INC) MONOCYTES:NCNC:P T:BLD:QN:AUTOMAT ED COUNT 0.7 Normal 0.2-1.0 E9/L LAB 713-8(INC) EOSINOPHILS/100 LEUKOCYTES:NFR:P T:BLD:QN:AUTOMAT ED COUNT 1.2 Normal 0.0-8.0 % LAB 704-7(INC) BASOPHILS:NCNC:P T:BLD:QN:AUTOMAT ED COUNT 0.7 Normal 0.0-2.0 % LAB 751-8(INC) NEUTROPHILS:NCNC :PT:BLD:QN:AUTOM ATED COUNT 4.2 Normal 2.0-7.5 E9/L LAB 06082-3(INC) LYMPHOCYTES:NCNC :PT:BLD:QN: 1.3 Normal 1.0-4.0 E9/L LAB 76148-9(LOINC) EOSINOPHILS:NCNC :PT:BLD:QN: 0.1 Normal 0.0-0.5 E9/L LAB 66586-5(INC) BASOPHILS/LEUKOC YTES:NFR.DF:PT:B LD:QN:AUTOMATED COUNT 0.0 Normal 0.0-0.2 E9/L Performed By: #### [id number] # ### [facility] [address] [place] [address] EGFR Collected: 4 10:07 AM Status: F Source: [facility] Order Comment: Order added b y Discern Expert. TYPE CODE TESTS RESULT OUT OF RANGE REFERENCE UNITS LAB 04017671([facility]) eGFR 79 Normal >=59 mL/min/1 .7 3 m2 Performed By: #### [id number] #### [facility] [address] [place] [address] BMP Collected: 4 10:07 AM Status: F Source: [facility] TYPE CODE TESTS RESULT OUT OF RANGE REFERENCE UNITS LAB 2345-7([facility]) GLUCOSE:MCNC :PT:SER/PLAS :QN: 115 Normal 55-199 mg/dL LAB 3094-0([facility]) UREA NITROGEN:MCN C:PT:SER/DANITZA S:QN: 25 High 5-21 mg/dL LAB 2160-0([facility]) CREATININE:M CNC:PT:SER/P LAS:QN: 1.0 Normal 0.5-1.3 mg/dL LAB 3097-3([facility]) UREA NITROGEN/CRE ATININE:MRTO :PT:SER/PLAS :QN: 25 High 10-20 No Units LAB 53527-2([facility]) CALCIUM:MCNC :PT:SER/PLAS :QN: 9.8 Normal 8.9-11.1 mg/dL LAB 2951-2([facility]) SODIUM:SCNC: PT:SER/PLAS: QN: 140 Normal 135-145 mmol/L LAB 2823-3([facility]) POTASSIUM:SC NC:PT:SER/PL :QN: 3.6 Normal 3.5-5.3 mmol/L LAB 2075-0([facility]) CHLORIDE:SCN C:PT:SER/DANITZA S:QN: 104 Normal 101-111 mmol/L LAB 8-9([facility]) CARBON DIOXIDE:SCNC :PT:SER/PLAS :QN: 28 Normal 21-31 mmol/L LAB 82854-8([facility]) ANION GAP:SCNC:PT: SER/PLAS:QN: 12 Normal 6-16 mEq/L Performed By: #### [id number] # ### [facility] [address] [place] [address] LAB REPORTS Observed: 11/30/2023 9:53 AM Status: F Source: [facility] [id number]#1.00TIFF RAD - MISC Observed: 10/29/2023 9:53 AM Status: F Source: [facility] [id number]#1.00TIFF LAB REPORTS Observed: 10/29/2023 9:53 AM Status: F Source: [facility] [id number]#1.00TIFF ALLERGIES DATE TYPE / CODE NAME / CODE REACTION SEVERITY SOURCE JUDITH([employer] MED CT) codeine [id number] [facility] JUDITH(SNO MED CT) penicillins fever [facility] JUDITH(SNO MED CT) Compazine pt states family hx he has never had. sister x2 severe reaction muscle rigidity [facility] [id number](SNO MED CT) Percocet 5/325 [id number] [facility] JUDITH(SNO MED CT) Unknown fever [facility] ENCOUNTERS ADMIT/DISCHARGE ACCOUNT NUMBER ADMITTING ENCOUNTER CLASS LOCATION SOURCE 11/17/2024/11/18/19 [id number] Ambulatory Building:[facility] EPIC 10/13/2024/10/14/19 25 [id number] Ambulatory Building:NO MS ORTHO [facility] EPIC 10/13/2024/10/14/19 25 [id number] Ambulatory Building:NO MS ORTHO [facility] EPIC 07/07/2024/07/07/20 24 [id number] Ambulatory Building:NO MS ORTHO [facility] EPIC 06/16/2024/06/16/20 24 [id number] Ambulatory Building:NO MS ORTHO [facility] EPIC 06/16/2024/06/16/20 24 [id number] Ambulatory Building:NO MS ORTHO [facility] EPIC 05/26/2024/05/26/20 24 [id number] Ambulatory EU [place]:EU Wil[place] m: Exam 3 [facility] 04/16/2024/04/16/20 24 [id number] Ambulatory Building:NO MS ORTHO [facility] EPIC 04/16/2024/04/16/20 24 [id number] Ambulatory Building:NO MS ORTHO [facility] EPIC 03/18/2024 [id number] Bunny Hewitt Ambulatory FTMCBuildin g:ASRoom: PF61Xgh: 01 [facility] 03/18/2024/03/18/20 24 [id number] Bunny Hewitt Ambulatory FTMCBuildin g:ASRoom: ZI65Tue: 01 [facility] 03/13/2024/03/13/20 24 [id number] Ambulatory Building: R NEURO [facility] EPIC 02/18/[id number] Bunny Hewitt Ambulatory FTMCBuildin g:FT [facility] [place] 02/18/2024/02/18/20 24 [id number] Bunny Hewitt Ambulatory FTMCBuildin g:FT [facility] [place] 02/18/2024/02/18/20 24 [id number] Ambulatory Building:NO MS ORTHO [facility] EPIC 02/18/2024/02/18/20 24 [id number] Ambulatory Building:NO MS ORTHO [facility] EPIC 02/18/2024/02/18/20 24 [id number] Ambulatory Building:NO MS ORTHO [facility] EPIC 02/11/2024/02/11/20 24 [id number] Ambulatory Building:NO MS ORTHO [facility] EPIC 01/07/2024/01/07/20 24 [id number] Ambulatory Building:NO MS ORTHO [facility] EPIC 01/07/2024/01/07/20 24 [id number] Ambulatory Building:NO MS ORTHO [facility] EPIC 01/07/2024/01/07/20 24 [id number] Ambulatory Building:NO MS ORTHO [facility] EPIC 12/29/2019 [id number] Ambulatory EU EstephaniaBui lding:EU [place] [facility] PAYERS ENCOUNTER GUARANTOR PAYER SUBSCRIBER SOURCE 11/17/2024 GERRY VINCENT: [place] [phone]: (HP) Primary Insurance:MEDICAREPolic y Number: [id number] Date:0109-14-64Qrhw Name:Medicare GERRY POPEB: [id number] [place] [address] [facility] EPIC 11/17/2024 Secondary Insurance:RD & FORSTERPolicy Number: [id number] Date:2023-07-09 GERRY Valverde NIKOB: [id number] [place] [phone] [facility] EPIC 10/13/2024 GERRY Valverde NIKOB: [place] [phone]: (HP) Primary Insurance:MEDICAREPolic y Number: [id number] Date:7054-29-18Reww Name:Medicare GERRY LAYB: [id number] [place] [phone] [facility] EPIC 10/13/2024 Secondary Insurance:RD & FORSTERPolicy Number: [id number] Date:2023-07-09 GERRY Valverde NIKOB: [id number] [place] [phone] [facility] EPIC 10/13/2024 GERRY Valverde NIKOB: [place] [phone]: (HP) Primary Insurance:MEDICAREPolic y Number: [id number] Date:8368-54-46Swlq Name:Medicare GERRY LAYB: [id number] [place] [address] [facility] EPIC 10/13/2024 Secondary Insurance:RD & FORSTERPolicy Number: [id number] Date:2023-07-09 GERRY Abram NIKOB: [id number] [place] [address] [facility] EPIC 07/07/2024 GERRY Valverde MELISA: [place] [address]Bys: (HP) Primary Insurance:MEDICAREPolic y Number: [id number] Date:6095-60-04Pymv Name:Medicare GERRY Valverde JAREDSHANNANB: [id number] [place] [phone] [facility] EPIC 07/07/2024 Secondary Insurance:RD & FORSTERPolicy Number: [id number] Date:2023-07-09 GERRY Valverde MELISA: [id number] [facility] [place] [phone] [facility] EPIC 06/16/2024 GERRY Abram NIKOB: [facility] [place] [phone]: (HP) Primary Insurance:MEDICAREPolic y Number: [id number] Date:5670-29-97Xfyu Name:Medicare GERRY Valverde NIKOB: [id number] [place] [phone] [facility] EPIC 06/16/2024 Secondary Insurance:RD & FORSTERPolicy Number: [id number] Date:2023-07-09 GERRY Valverde NIKOB: [id number] [facility] [place] [phone] [facility] EPIC 06/16/2024 GERRY Valverde NIKOB: [facility] [place] [address]Jjc: (HP) Primary Insurance:MEDICAREPolic y Number: [id number] Date:7429-81-87Aipj Name:Medicare GERRY Valverde JAREDSHANNANB: [id number] [place] [address] [facility] EPIC 06/16/2024 Secondary Insurance:RD & FORSTERPolicy Number: [id number] Date:2023-07-09 GERRY Valverde NIKOB: [id number] [place] [address] [facility] EPIC 05/26/2024 GERRY Valverde NIKOB: [id number] J[place] DRTel: ~~(4 1 (HP) Primary Insurance:MEDICAREPolic y Number: [id number] Date:8525-57-24[address] [address], [place] [address]DA: GERRY Valverde KARINA [facility] 05/26/2024 Secondary Insurance:Miscellaneous Insurance CompanyPolicy Number: [id number] Date:6178-16-87YA [address] [address], [place] [address]VW: GERRY COLLINS [facility] 04/16/2024 GERRY Abram NIKOB: [id number] [place] [address]Luz: (HP) Primary Insurance:MEDICAREPolic y Number: [id number] Date:5133-66-04Nndc Name:Medicare GERRY LAYB: [id number] [place] [address] [facility] EPIC 04/16/2024 Secondary Insurance:RD & FORSTERPolicy Number: [id number] Date:2023-07-09 GERRY Abram NIKOB: [id number] [place] [address] [facility] EPIC 04/16/2024 GERRY POPEB: [id number] [place] [address]Cky: (HP) Primary Insurance:MEDICAREPolic y Number: [id number] Date:0047-15-74Opdt Name:Medicare GERRY Valverde NIKOB: [id number] [place] [address] [facility] 04/16/2024 Secondary Insurance:RD & FORSTERPolicy Number: [id number] Date:2023-07-09 GERRY VINCENT: [id number] [facility] [place] [address] [facility] EPIC 03/18/2024 GERRY POPEB: [facility] DRTel: ~~(4 1 (HP) Primary Insurance:MEDICAREPolic y Number: [id number] Date:6223-08-37HT [address] [address], [place] [address]GQ: GERRY COLLINS [facility] 03/18/2024 Secondary Insurance:Miscellaneous Insurance CompanyPolicy Number: [id number] Date:8857-72-01BP [address] [place] [address]MW: GERRY COLLINS [facility] 03/18/2024 GERRY POPEB: [facility] DRTel: ~~(4 1 (HP) Primary Insurance:MEDICAREPolic y Number: [id number] Date:1689-98-13[address] [address], [place] [address]IA: GERRY COLLINS [facility] 03/18/2024 Secondary Insurance:Miscellaneous Insurance CompanyPolicy Number: [id number] Date:9088-65-88WZ [address] [place] [address]OD: GERRY COLLINS [facility] 03/13/2024 GERRY POPEB: [facility] [place] [address]Ctm: (HP) Primary Insurance:MEDICAREPolic y Number: [id number] Date:3976-77-58Rqiu Name:Medicare GERRY VINCENT: [id number] [place] [address] [facility] EPIC 03/13/2024 Secondary Insurance:RD & FORSTERPolicy Number: [id number] Date:2023-07-09 GERRY POPEB: [id number] [place] [address] [facility] EPIC 02/18/2024 GERRY POPEB: [place] DRTel: ~~(4 1 (HP) Primary Insurance:MEDICAREPolic y Number: [id number] Date:2078-57-28ZI [address] [place] [address]AP: GERRY COLLINS [facility] 02/18/2024 Secondary Insurance:Miscellaneous Insurance CompanyPolicy Number: [id number] Date:8721-56-36YN [address] [place] [address]EM: 727 GERRY COLLINS [facility] 02/18/2024 GERRY POPEB: [id number] [place] [address]Anr: (HP) Primary Insurance:MEDICAREPolic y Number: [id number] Date:1878-65-92Ppma Name:Medicare GERRY POPEB: [id number] [place] [address] [facility] EPIC 02/18/2024 Secondary Insurance:RD & FORSTERPolicy Number: [id number] Date:2023-07-09 GERRY VINCENT: [id number] [place] [address] [facility] EPIC 02/18/2024 GERRY POPEB: [id number] [place] [address]Lvx: (HP) Primary Insurance:MEDICAREPolic y Number: [id number] Date:9434-80-30Oujh Name:Medicare GERRY POPEB: [id number] [place] [address] [facility] 02/18/2024 Secondary Insurance:RD & FORSTERPolicy Number: [id number] Date:2023-07-09 GERRY Valverde NIKOB: [id number] [place] [address] [facility] EPIC 02/18/2024 GERRY Valverde NIKOB: [id number] [place] [address]Mxj: (HP) Primary Insurance:MEDICAREPolic y Number: [id number] Date:8592-14-87Dxxp Name:Medicare GERRY POPEB: [id number] [place] [address] [facility] EPIC 02/18/2024 Secondary Insurance:RD & FORSTERPolicy Number: [id number] Date:2023-07-09 GERRY Valvedre NIKOB: [id number] [place] [address] [facility] EPIC 02/11/2024 GERRY Valverde NIKOB: [id number] [facility] [place] [address]Ybw: (HP) Primary Insurance:MEDICAREPolic y Number: [id number] Date:5875-85-28Jbns Name:Medicare GERRY LAYB: [id number] [place] [address] [facility] 02/11/2024 Secondary Insurance:RD & FORSTERPolicy Number: [id number] Date:2023-07-09 GERRY Valverde NIKOB: [id number] [place] [address] [facility] EPIC 01/07/2024 GERRY POPEB: [id number] [place], [place] [id number]: (HP) Primary Insurance:MEDICAREPolic y Number: [id number] Date:2955-55-42Wezj Name:Medicare GERRY Valverde NIKOB: [id number] [place] [address] [facility] EPIC 01/07/2024 Secondary Insurance:RD & FORSTERPolicy Number: [id number] Date:2023-07-09 GERRY POPEB: [id number] [place] [address] [facility] EPIC 01/07/2024 GERRY POPEB: [place]OOKSJENNA [place], [place] [id number]: (HP) Primary Insurance:MEDICAREPolic y Number: [id number] Date:6133-96-34Ewxo Name:Medicare GERRY Valverde NIKOB: [id number] [place] [phone] [facility] EPIC 01/07/2024 Secondary Insurance:RD & FORSTERPolicy Number: [id number] Date:2023-07-09 GERRY VINCENT: [id number] [place] [phone] [facility] EPIC 01/07/2024 GERRY POPEB: [place] [phone]: (HP) Primary Insurance:MEDICAREPolic y Number: [id number] Date:9979-03-25Dvfy Name:Medicare GERRY Abram MELISA: [id number] [place] [id number] [facility] EPIC 01/07/2024 Secondary Insurance:JESSICA MEDICARE SUPPLEMENTPolicy Number: [id number] Date:1899-07-091899-07-09 GERRY POPEB: [id number] [place] [address] [facility] EPIC 01/07/2024 Tertiary Insuran ce:RD & Aleyda Number: [id number] Date:2023-07-09 GERRY VINCENT: [id number] [facility] [place] [address] [facility] EPIC 12/29/2019 GERRY VINCENT: [facility] DRTel: () Primary Insurance:MEDICAREPolic y Number: [id number] Date:6428-61-01[address], [place] [address]AO: GERRY COLLINS [facility] 12/29/2019 Secondary Insurance:AETNAPolicy Number: [id number] Date:6147-11-15[address] [address]AN: GERRY COLLINS [facility]
[2024-12-03 04:07] LABS: PSA, Free 0.65 ng/mL; Prostate Specific Ag 2.3 ng/mL (0.0-4.0)
== END 2024-12-02 07:30 | disposition home or self-care (01) ==
LOC: LAB 07:31
PROVIDERS: Family Provider Optometrist; PCP Family Medicine; Visit Provider Urology
DX: R97.20 Elevated prostate specific antigen [PSA] (principal)
CPT/HCPCS: 36415; 84153; 84154

== ENCOUNTER 2024-12-05 08:18 | Outpatient (OUT) | payer MEDICARE, OTHER, SELFPAY ==
--- OUTSIDE RECORDS SUMMARY | 2024-12-05 08:20 | XMS_ITS | Clinical Summary ---
Author Organization [facility] Healthcare Address [address] [facility] [place] [address] Care Team Providers Care Statement Clerk Name Role Phone Regina Hammer MD Primary Care Provider [phone] Allergies Active Allergy Reactions Criticality Noted Date Comments Codeine Nausea Only,Unknown 10/27/2022 Other Reaction(s): Nausea present Oxycodone-Acetaminophen GI intolerance 10/28/19 23 Can take Barrington or hydrocodone without issue Prochlorperazine 10/27/2022 Family history of severe reaction Medications coenzyme Q-10 10 MG capsule Take 10 mg by mouth in the morning. Active hydroCHLOROthia zide (HYDRODiuril) 25 MG tablet Take 25 mg by mouth in the morning. 09/25/2022 Active levothyroxine (Synthroid, Levoxyl) 88 MCG tablet Take 88 mcg by mouth in the morning. 08/16/2022 Active rosuvastatin (Crestor) 20 MG tablet Take 20 mg by mouth in the morning. 08/16/2022 Active tamsulosin (Flomax) 0.4 MG 24 hr capsule Take 0.4 mg by mouth in the morning and 0.4 mg before bedtime. Active tadalafil (Cialis) 20 MG tablet 02/03/2024 Active cetirizine (ZyrTEC) 10 MG tablet Take 10 mg by mouth Daily Active Active Problems Problem Noted Date Diagnosed Date BPH with urinary obstruction 05/27/2023 Calculus of kidney 05/27/2023 Overview (05/27/2023): in 2013 Elevated PSA 05/27/2023 History of skin cancer 05/27/2023 Hx of hypercholesterolemia 05/27/2023 Hyperlipemia 05/27/2023 Hypothyroidism 05/27/2023 Microhematuria 05/27/2023 Nocturia 05/27/2023 Osteoarthritis of knee 05/27/2023 Encounters Date Type Department Care Team Description 11/17/2024 10:30 AM EDT Office Visit KRISHAN JACKMAN [address] [facility] [address] [place] [address] Damian Valle DO Cognitive dysfunction (Primary Dx); Tremor; Long-term use of high-risk medication 11/10/2024 Travel 10/13/2024 10:00 AM EDT Office Visit [facility] [address] [place] [address] Gorge Hewitt DO S/P total right hip arthroplasty (Primary Dx) 10/13/2024 8:35 AM EDT Ancillary Procedure [facility] [address] [place] [address] 10/13/2024 Travel 10/12/2024 Travel from Last 3 Months Family History Medical History Relation Name Comments Heart disease Brother Diabetes Father Joseph Heart disease Father Joseph Heart disease Mother Relation Name Status Comments Brother Daughter Alive Father Joseph Maternal Grandfather Maternal Grandmother Mother Alive Paternal Grandfather Paternal Grandmother Sibling Alive 4 alive 1 decea sed Social History Tobacco Use Types Packs/Day Years Used Date Smoking Tobacco: Never Smokeless Tobacco: Never Tobacco Cessation:Counseling Given: Not Answered Alcohol Use Standard Drinks/Week Comments Yes 2 (1 standard drink = 0.6 oz pure alcohol) caffeine intake : coffee 2 cups Sex and Gender Information Value Date Recorded Sex Assigned at Not on file Legal Sex Male 7:32 PM EDT Gender Identity Not on file Sexual Orientation Not on file Last Filed Vital Signs Vital Sign Reading Time Taken Comments Blood Pressure 146/84 11/17/2024 10:29 AM EDT Pulse 69 11/17/2024 10:29 AM EDT Temperature 36.3 C (97.4 F) 01/07/2024 8:35 AM EDT Respiratory Rate - - Oxygen Saturation 98% 11/17/2024 10:29 AM EDT Inhaled Oxygen Concentration - - Weight 114 kg (251 lb 3.2 oz) 11/17/2024 10:29 A M EDT Height 179.1 cm (5' 10.5 ) 10/13/2024 10:14 AM E DT Body Mass Index 35.53 10/13/2024 10:14 AM EDT Plan of Treatment Upcoming Encounters Date Type Department Care Team (Late st Contact Info) Description 03/18/2025 9:15 AM EDT Office Visit [facility] [address] [place] [phone] Gorge Hewitt DO [address] [place] [address] Health Maintenance Due Date Last Done Comments CT Colonography 1950 FIT-DNA 1950 FIT 1950 FOBT 1950 Sigmoidoscopy 1950 Pneumococcal Vaccine: 65+ Ye ars (1 of 1 - PCV) 2000 Colonoscopy 12/28/2032 12/28/2022 Colorectal Cancer Screening 12/28/2032 Influenza Vaccine Completed 07/03/2024, , 06/24/2021, Additional history exists Procedures Procedure Name Priority Date/Time Associated Diagnosis Comments XR HIP 2 OR 3 VW RIGHT Routine 10/13/2024 8:31 AM EDT S/P total right hip arthroplasty from Last 3 Months Results * XR hip right 2 or 3 views (10/13/2024 8:31 AM EDT) Anatomical Region Laterality Modality Lower Extremities, Hip Right Radiograp hic Imaging Narrative 10/14/2024 7:21 PM EDT Imaging Result: X-rays AP pelvis, right lateral hip total of three views with permanent images are saved to the record does show what appears to be a well-fixed, well-aligned total hip arthroplasty bilaterally. Both hips are located. There is no evidence of fracture or other osseous abnormality. us Gorge Hewitt DO IMG XR PROCEDURES Final Result from Last 3 Months Insurance MEDICARE [facility] [address] Care Teams Statement Clerk Relationship Specialty Start Date End Date Regina Hammer MD [address] [facility] [place] [phone] PCP - General Family Medicine 05/24/23
--- OUTSIDE RECORDS SUMMARY | 2024-12-05 08:20 | XMS_ITS | Encounter Summary ---
Author Organization [facility] Address [address] [place] [address] Care Team Providers Care Glass Handler Name Role Phone Regina Hammer MD Primary Care Provider [phone] Encounter Details Date Type Department Care Team (Late st Contact Info) Description 06/22/2023 External Result Encounter [facility] External Department Unsolicited Sukhdeep Crockett, DO [address] [place] [address] Social History Tobacco Use Types Packs/Day Years Used Date Smoking Tobacco: Never Smokeless Tobacco: Never Alcohol Use Standard Drinks/Week Comments Not Asked 0 (1 standard drink = 0.6 oz pure alcohol) caffeine intake : coffee 2 cups Sex and Gender Information Value Date Recorded Sex Assigned at Not on file Legal Sex Male 7:32 PM EDT Gender Identity Not on file Sexual Orientation Not on file documented as of this encounter Plan of Treatment Upcoming Encounters Date Type Department Care Team (Late st Contact Info) Description 03/18/2025 9:15 AM EDT Office Visit [facility] [address] [facility] [phone] Gorge Hewitt, DO [address] [place] [address] documented as of this encounter Procedures Procedure Name Priority Date/Time Associated Diagnosis Comments VASC US CAROTID ARTERY DUPLEX BILATERAL 06/22/2023 3:20 PM EST documented in this encounter Results * Vascular US carotid artery duplex bilateral (06/22/2023 3:20 PM EST) Anatomical Region Laterality Modality Neck Ultrasound 06/22/2023 3:20 PM EST Impressions 06/22/2023 3:49 PM EST NO HEMODYNAMICALLY SIGNIFICANT STENOSIS OF EITHER EXTRACRANIAL INTERNAL CAROTID ARTERY. BOTH VERTEBRAL ARTERIES ARE PATENT WITH ANTEGRADE FLOW. Impression dictated by: Mayo Sheikh M.D.06/22/2023 3:21 PM Dictation Location: [place] [address] Tech: Yen Estrella Transcribed By: ESE 06/22/23 1521 Dictated By: Mayo Sheikh MD 06/22/23 1520 Signed By: <Electronically signed by MD Mayo Sheikh in OV> 06/22/23 1521 Narrative 06/22/2023 3:49 PM EST [facility] [place] [address] Ultrasound Report Signed Patient: Ruperto Poole MR#: [id number] : 1950 Acct:[id number] Age/Sex: 72 / M ADM Date: 06/21/23 Loc: MR Room: Type: [facility] Attending Dr: Sukhdeep Crockett DO Ordering [...] with antegrade flow. US/US carotid doppler BI Procedure Note Mayo Sheikh MD - 06/22/2023 [facility] [place] [address] Ultrasound Report Signed Patient: Ruperto Poole WMR#: [id number] : 1Acct:[id number] Age/Sex: 72 / MADM Date: 06/21/23 Loc: Room:Type: [facility] Attending Dr: Sukhdeep Crockett DO Ordering Provider: Sukhdeep Crockett DO Date of Service: 06/21/23 US/US carotid doppler BI: H91.8x3, H81.391, R42 Copies to: Sukhdeep Crockett DO CAROTID DUPLEX INDICATION: Right facial numbness PROCEDURE: Color-flow duplex scanning is used to interrogate theextracranial carotid arterial system, as well as both vertebral arteries. The proximal right internalcarotid artery shows a highest peak systolic velocity of 96.2 cm/s with an end-diastolic velocityof 28.6 cm/s . The mid internal carotid artery measures 86.6 cm/s peak systolic with anend-diastolic velocity of 32.9 cm/s . The distal segment measures 88.4 cm/s peak systolic with an enddiastolic velocity of 26.9 cm/s . The velocities of the right common carotid artery are 106 cm/s peaksystolic and 15.5 cm/s end- diastolic proximally and 84.5 cm/s peak systolic and 17.4 cm/send-diastolic distally. The peak systolic velocity ratio of the internal to the common carotid artery is1.14 . The right external carotid artery measures 149 cm/s peak systolic. The right vertebralartery is patent at 55.9 cm/s peak systolic and with antegrade flow. The proximal left internal carotid artery shows a highest peak systolicvelocity of 63.9 cm/s with an end-diastolic velocity of 19.2 cm/s . The mid internal carotid arterymeasures 61.4 cm/s peak systolic with an end-diastolic velocity of 16.7 cm/s . The distalsegment measures 79.1 cm/s peak systolic with an end diastolic velocity of 22.6 cm/s . The velocities ofthe left common carotid artery are 138 cm/s peak systolic and 16.5 cm/s end-diastolic proximallyand 125 cm/s peak systolic and 18.2 cm/s end-diastolic distally. The peak systolicvelocity ratio of the internal to the common carotid artery is 0.63 . The left external carotid arterymeasures 75.2 cm/s peak systolic. The left vertebral artery is patent at 39.8 cm/s peak systolicwith antegrade flow. US/US carotid doppler BI IMPRESSION: NO HEMODYNAMICALLY SIGNIFICANT STENOSIS OF EITHER EXTRACRANIAL INTERNALCAROTID ARTERY. BOTH VERTEBRAL ARTERIES ARE PATENT WITH ANTEGRADE FLOW. Impression dictated by: Mayo Sheikh M.D.06/22/2023 3:21 PM Dictation Location: [id number] Tech: Yengeorgie Gunner Transcribed By: ESE 06/22/231520 Dictated By: Mayo Sheikh MD 06/22/231519 Signed By: <Electronically signed by MD Mayo Sheikh in OV> 06/22/23 152 us Sukhdeep W Murcek DO IMG US PROCEDURES Final Res ult documented in this encounter Visit Diagnoses Not on filedocumented in this encounter Care Teams Glass Handler Relationship Specialty Start Date End Date Regina Hammer MD [address] [place] [address] PCP - General Family Medicine 05/24/23 documented as of this encounter
--- OUTSIDE RECORDS SUMMARY | 2024-12-05 08:20 | XMS_ITS | Encounter Summary ---
Author Organization [facility] Address [address] [place] [address] Care Team Providers Care Marine Service Station Attendant Name Role Phone Regina Hammer MD Primary Care Provider [phone] Encounter Details Date Type Department Care Team (Late st Contact Info) Description 06/21/2023 External Result Encounter [facility] External Department Unsolicited Sukhdeep Crockett, DO [address] [place] [address] Social History Tobacco Use Types Packs/Day Years [...] [facility] [address] [place] [phone] Gorge Hewitt, DO [address] [place] [address] documented as of this encounter Procedures Procedure Name Priority Date/Time Associated Diagnosis Comments MR BRAIN W AND WO CONTRAST (ROUTINE) 06/21/2023 4:46 PM EST documented in this encounter Results * MR brain w and wo contrast routine (06/21/2023 4:46 PM EST) Anatomical Region Laterality Modality Brain Magnetic Resonan ce 06/21/2023 4:46 PM EST Impressions 06/22/2023 9:20 AM EST There is a vascular loop projecting approximately [...] Eloy Barnard M.D.06/21/2023 5:08 PM Dictation Location: [place] [address] Transcribed By: [facility] 06/21/238 Dictated By: Eloy Barnard II, MD 06/21/23 1646 Signed By: <Electronically signed by Eloy Barnard II, MD in OV> 06/21/23 1708 Narrative 06/22/2023 9:20 AM EST [facility] [place] [address] [place] [address] MRI Report Signed Patient: Ruperto Poole MR#: [id number] : 1950 Acct:[id number] Age/Sex: 72 / M ADM Date: 06/21/23 Loc: MR Room: Type: [facility] Attending Dr: Sukhdeep Crockett DO Copies to: [...] Within normal limits. MR/MR head/brain wo/w con Procedure Note Radiology, Radiologist, - 06/22/2023 [facility] Main [place] [address] [place] [address] MRI Report Signed Patient: Ruperto Poole WMR#: [id number] : 1950cct:[id number] Age/Sex: 72 / MADM Date: 06/21/23 Loc: Room:Type: [facility] Attending Dr: Sukhdeep Crockett DO Copies to: Sukhdeep Crockett DO Ordering Provider: Sukhdeep Crockett DO Date of Service: 06/21/23 MR/MR head/brain wo/w con: H91.8x3, H81.391,R42 MR head/brain wo/w con 06/21/2023 11:28 AM SIGN AND SYMPTOMS: Vertigo, history of chronic sinus infections PROTOCOL: Multiplanar multisequence MR images of the brain were obtainedwith and without IV contrast COMPARISON: None. FINDINGS: Extra axial spaces: There is mild diffuse age-related cortical atrophy. Hemorrhage: None. Ventricular system: Within normal limits. Basal cisterns: Within normal limits and not effaced. Cerebral parenchyma: Periventricular and subcortical white matter T2 andFLAIR hyperintense signal is noted consistent with chronic microvascular ischemic change. Midline shift: None.. Cerebellum: Within normal limits. Brainstem: Within normal limits. Cerebellar pontine angles: No mass or abnormal enhancement. Internal auditory canals: There is a vascular loop projectingapproximately 50% of the way into the right internal auditory canal closely approximating the right 7th and 8thcranial nerves. There is no mass or abnormal enhancement. Temporal bone structures: Within normal limits. OTHER: Calvarium: Normal marrow signal. Vascular system: Satisfactory flow voids within the anterior and posteriorcirculation. Visualized Paranasal sinuses: There is mild mucosal thickening in the leftmaxillary sinus. Visualized Orbits: Within normal limits. Visualized upper cervical spine: Within normal limits. Sella and skull base: Within normal limits. MR/MR head/brain wo/w con IMPRESSION: There is a vascular loop projecting approximately 50% of the way into theright internal auditory canal closely approximating the right 7th and 8th cranial nerves.Correlation with clinical signs of vascular nerve compression is recommended. There is no mass or abnormal enhancement. The cerebellopontine angles,left internal auditory canal, and temporal bones are within normal limits. Periventricular and subcortical white matter T2 and FLAIR hyperintensesignal is noted consistent with chronic microvascular ischemic change. There is mild diffuse age-related cortical atrophy. Impression dictated by: Eloy Barnard M.D.06/21/2023 5:08 PM Dictation Location: [place] [address] Transcribed By: [facility] 06/21/23 1708 Dictated By: Eloy Barnard II, MD 06/21/23 1646 Signed By: <Electronically signed by Eloy Barnard II, MD inOV> 06/21/23 1708 Sukhdeep Crockett DO IMG MRI PROCEDURES Final Re sult documented in this encounter Visit Diagnoses Not on filedocumented in this encounter Care Teams Marine Service Station Attendant Relationship Specialty Start Date End Date Regina Hammer MD [facility] [place] [address] PCP - General Family Medicine 05/24/23 documented as of this encounter
--- OUTSIDE RECORDS SUMMARY | 2024-12-05 08:20 | XMS_ITS | Encounter Summary ---
Author Organization [facility] Address [address] [facility] [place] [address] Care Team Providers Care Vice President Industrial Relations Name Role Phone Regina Hammer MD Primary Care Provider [phone] Encounter Details Date Type Department Care Team ([facility] Contact Info) Description 03/18/2024 Abstract [facility] [address] [facility] [place] [address] Gorge Hewitt DO [address] [place] [address] Social History Tobacco Use Types Packs/Day Years Used Date Smoking Tobacco: Never Smokeless Tobacco: Never Alcohol Use Standard Drinks/Week Comments Yes 2 [...] Encounters Date Type Department Care Team (Late Contact Info) Description 03/18/2025 9:15 AM EDT Office Visit [facility] [address] [facility] [place] [address] Gorge Hewitt DO [address] [place], [place] [phone] documented as of this encounter Visit Diagnoses Not on filedocumented in this encounter Care Teams Vice President Industrial Relations Relationship Specialty Start Date End Date Reigna Hammer MD [address] [place] [address] PCP - General Family Medicine 05/24/23 documented as of this encounter
--- OUTSIDE RECORDS SUMMARY | 2024-12-05 08:20 | XMS_ITS | Encounter Summary ---
Author Organization [facility] Address [address] [place] [address] Care Team Providers Care Saddle Cutter Name Role Phone Regina Hammer MD Primary Care Provider [phone] Encounter Details Date Type Department Care Team (Late st Contact Info) Description 04/12/2023 Orders Only [facility] [address] [place] [address] Regina Hammer MD [address] [facility] [place] [address] Social History Tobacco Use Types Packs/Day Years Used Date Smoking Tobacco: Never Assessed Sex and Gender Information Value Date Recorded Sex Assigned at Not on file Legal Sex Male 7:32 PM EDT Gender Identity Not on file Sexual Orientation Not on file documented as of this encounter Plan of Treatment Upcoming Encounters Date Type Department Care Team (Late st Contact Info) Description 03/18/2025 9:15 AM EDT Office Visit [facility] [address] [place] [phone] PocGorge dillon, DO [address] [place] [address] documented as of this encounter Procedures Procedure Name Priority Date/Time Associated Diagnosis Comments CT SCAN Routine 03/16/2023 10:02 AM EDT documented in this encounter Results * CT SCAN (03/16/2023 10:02 AM EDT) Anatomical Region Laterality Modality Radiographic Lindsay ging us Regina Hammer MD IMG XR PROCEDURES Final Result documented in this encounter Visit Diagnoses Not on filedocumented in this encounter Care Teams Saddle Cutter Relationship Specialty Start Date End Date Regina Hammer MD [address] [place] [address] PCP - General Family Medicine 05/24/23 documented as of this encounter
--- OUTSIDE RECORDS SUMMARY | 2024-12-05 08:20 | XMS_ITS | Encounter Summary ---
Author Organization [facility] Address [address] [facility] [place] [address] Care Team Providers Care [employer] Name Role Phone Regina Hammer MD Primary Care Provider [phone] Encounter Details Date Type Department Care Team (Late st Contact Info) Description 02/18/2024 Clinisync Result Encounter [facility] External Department Unsolicited Gorge Hewitt DO [address] [place] [address] Social History Tobacco Use Types Packs/Day Years [...] 03/18/2025 9:15 AM EDT Office Visit [facility] [address] [place] [place] [address] Gorge Hewitt DO [address] [place] [address] documented as of this encounter Procedures Procedure Name Priority Date/Time Associated Diagnosis Comments CT LOWER EXTREMITY W/O CONTRAST RIGHT 02/18/2024 10:23 AM EDT documented in this encounter Results * CT LOWER EXTREMITY W/O CONTRAST RIGHT (02/18/2024 10:23 AM EDT) Anatomical Region Laterality Modality Other 02/18/2024 10:2 3 AM EDT Narrative 02/20/2024 4:46 PM EDT Exam Date/Time: 02/18/2024 10:38 EDT Reason for [...] of both knees is noncontributory. Ordering Provider: Gorge Hewitt FINAL REPORT Dictated: 02/20/2024 4:43 pm Mark Zuniga MD Signed (Electronic Signature): 02/20/2024 4:43 pm Signed by: Mark Zuniga MD Transcribed by: NICCI Technologist: WILMAR Procedure Note Radiology, Radiologist, - 02/20/2024 Exam Date/Time: 02/18/2024 10:38 EDT Reason for Exam: RIGHT HIP OSTEOARTHRITIS Report IMPRESSION: CT FOR HIP PROSTHESIS CREATION. ADVANCED OSTEOARTHROSIS OF THE RIGHT HIP. EXAM: CT Lower Extremity w/o Contrast Right DATE: 02/18/2024 10:23 AM CLINICAL HISTORY: RIGHT HIP OSTEOARTHRITIS. COMPARISON: Pelvis and left hip 02/25/2016. TECHNIQUE: Spiral unenhanced imaging was obtained of the right lowerextremity for prosthesis creation, using Andrew protocol. All CT scans at this facility use dose modulation, iterativereconstruction, and/or weight based dosing when appropriate to reduce radiation dose to as low asreasonably achievable. FINDINGS: Moderately extensive osteoarthritic changes are present of the righthip. There is no fracture, significant joint effusion, dislocation, worrisomebone destruction, radiodense foreign bodies, or other findings of concernidentified. A total left hip arthroplasty is otherwise unremarkable. Additional imagingof both knees is noncontributory. Ordering Provider: Gorge Hewitt FINAL REPORT Dictated: 02/20/2024 4:43 pm Mark Zuniga MD Signed (Electronic Signature): 02/20/2024 4:43 pm Signed by: Mark Zuniga MD Transcribed by: NICCI Technologist: WILMAR Gorge Hewitt DO [facility] Final Result documented in this encounter Visit Diagnoses Not on filedocumented in this encounter Care Teams [employer] Relationship Specialty [place] [address] [place] [phone] PCP - General Family Medicine 05/24/23 documented as of this encounter
--- OUTSIDE RECORDS SUMMARY | 2024-12-05 08:20 | XMS_ITS | Encounter Summary ---
Author Organization [facility] Address [address] [facility] [place] [address] Care Team Providers Care Splitting Machine Tender Name Role Phone Regina Hammer MD Primary Care Provider [phone] Encounter Details Date Type Department Care Team (Late st Contact Info) Description 05/28/2023 Abstract [facility] [address] [place] [phone] Meghan Arreaga MA Social History Tobacco Use Types Packs/Day Years [...] [facility] [address] [place] [phone] Gorge Hewitt DO [address] [place] [address] documented as of this encounter Visit Diagnoses Not on filedocumented in this encounter Care Teams Splitting Machine Tender Relationship Specialty Start Date End Date Regina Hammer MD [address] [facility] [place] [address] PCP - General Family Medicine 05/24/23 documented as of this encounter
--- OUTSIDE RECORDS SUMMARY | 2024-12-05 08:20 | XMS_ITS | Encounter Summary ---
Author Organization [facility] Address [address] [facility] [place] [address] Care Team Providers Care Sulfonation Equipment Operator Name Role Phone Regina Hammer MD Primary Care Provider [phone] Encounter Details Date Type Department Care Team (Late st Contact Info) Description 05/28/2023 Abstract [facility] [address] [place] [phone] Meghan Arreaga MA Social History Tobacco Use [...] [facility] [address] [place] [phone] Gorge Hewitt DO [address] [place] [address] documented as of this encounter Visit Diagnoses Not on filedocumented in this encounter Care Teams Sulfonation Equipment Operator Relationship Specialty Start Date End Date Regina Hammer MD [address] [place] [phone] PCP - General Family Medicine 05/24/23 documented as of this encounter
--- OUTSIDE RECORDS SUMMARY | 2024-12-05 08:20 | XMS_ITS | Clinical Summary ---
Author Organization [employer] tem Address [facility] [id number] [address] [place] [address] Care Team Providers [employer] Community Service Officer Name Role Phone Regina Hammer MD Primary Care Provider [phone] Allergies Active Allergy Reactions Criticality Noted Date Comments Codeine Nausea 10/27/2022 Prochlorperazine 10/27/2022 Family history of severe reaction Oxycodone-Acetaminophen Nausea And Vomiting 10/27/2022 Can take [place] or hydrocodone without issue Penicillins Fever 10/27/2022 As child, has taken Penicillin recently and done fine Medications hydroCHLOROthia zide (HYDRODIURIL) 25 mg tablet Take 1 tablet (25 mg total) by mouth daily. 09/25/2022 Active levothyroxine (SYNTHROID, LEVOTHROID) 88 MCG tablet Take 1 tablet (88 mcg total) by mouth in the morning. 08/16/2022 Active rosuvastatin (CRESTOR) 20 mg tablet Take 1 tablet (20 mg total) by mouth in the morning. 08/16/2022 Active tamsulosin (FLOMAX) 0.4 mg capsule Take 1 capsule (0.4 mg total) by mouth in the morning and at bedtime. 04/14/2022 Active coenzyme Q10 10 mg capsule Take 1 capsule (10 mg total) by mouth in the morning. Active loratadine (CLARITIN) 10 mg tablet Take 1 tablet (10 mg total) by mouth in the morning. Active Active Problems No known active problems Family History Medical History Relation Name Comments Heart attack Brother age 54 Heart disease Father Heart disease Mother Breast cancer Sister Relation Name Status Comments Brother Father Mother Sister Alive Social History Tobacco Use Types Packs/Day Years Used Date Smoking Tobacco: Never Smokeless Tobacco: Never Alcohol Use Standard Drinks/Week Comments Yes 0 (1 standard drink = 0.6 oz pur e alcohol) socially Childcare Answer Date Recorded Childcare Unknown 12/18/2018 Employment Answer Date Recorded Employment Unknown 12/18/2018 Hunger Screening Answer Date Recorded Within the past 12 months we worried whether our food would run out before we got money to buy more. Never True 10/27/2022 Within the past 12 months th e food we bought just didn't last and we didn't have money to get more. Never True 10/27/2022 Purpose - Life Answer Date Recorded Purpose and direction in life Unknown Sex and Gender Information Value Date Recorded Sex Assigned at Not on file Legal Sex Male 11:41 AM EDT Gender Identity Not on file Sexual Orientation Not on file Last Filed Vital Signs Vital Sign Reading Time Taken Comments Blood Pressure 145/80 12/28/2022 8:20 AM EDT Pulse 58 12/28/2022 8:05 AM EDT Temperature 36.8 C (98.2 F) 12/28/2022 6:40 AM EDT Respiratory Rate 20 12/28/2022 8:05 AM EDT Oxygen Saturation 92% 12/28/2022 8:05 AM EDT Inhaled Oxygen Concentration - - Weight 106.6 kg (235 lb) 12/28/2022 6:40 AM EDT Height 177.8 cm (5' 10 ) 12/28/2022 6:40 AM EDT Body Mass Index 33.72 12/28/2022 6:40 AM EDT Plan of Treatment Health Maintenance Due Date Last Done Comments Depression Screening 1962 DTaP,Tdap and Td Vaccines (1 - Tdap) 1969 Zoster (Shingles) Vaccine (1 of 2) 2000 Fall Risk Screening 12/09/2015 Adult BMI Screening 12/29/2023 12/28/2022 Tobacco Screening 12/29/2023 12/28/2022 COVID-19 Vaccine (2023-2 5 season) 2024 04/03/2022, 05/02/2021, 09/15/2020, Additional history exists Influenza Vaccine 03/09/2025 06/07/2022, , 04/25/2019, Additional history exists Colonoscopy 12/29/2027 12/28/2022, 12/08, 09/25/2012 Medical Devices Not on file Procedures Procedure Name Priority Date/Time Associated Diagnosis Comments PROVATION COLONOSCOPY Routine 12/28/2022 6:39 AM EDT from Last 3 Months or Most Recently Relevant to Health Maintenance Results * Colonoscopy Report (12/28/2022 6:39 AM EDT) Narrative SYSTEMGENERATED, DOCUMENTATION - 12/28/2022 6:39 AM EDT This order has been auto-finalized for image and report archival in PACs. *For full report details, please reach out to your physician. This image is visible to you in MyChart.* Ruperto Dias DO IMG OR IMG ORDERABLES Final Result from Last 3 Months or Most Recently Relevant to Health Maintenance Insurance MEDICARE COMMERCIAL Care Teams Patrol Community Service Officer Relationship Specialty Start Date End Date Regina Hammer MD [address] [place] [address] PCP - General 09/17/17
--- OUTSIDE RECORDS SUMMARY | 2024-12-05 08:32 | XMS_ITS | CCD ---
Author Organization [facility] Care Team Providers Care Candlemaking Laborer Name Role Phone SERGIO CONNELL Primary Care Physician [phone] KO, DR SERGIO Maldonado Attending Unavailable CONNELL, DR SERGIO Malodnado Admitting Unavailable CONNELL, DR SERGIO Maldonado Primary Care Unavailable Ziebdaria, DR Varner Consulting Unavailable CONNELL, DR SERGIO Maldonado Consulting Unavailable QUILES, DR ZULEIKA Ibrahim Consulting Unavailabl e DOUG, DR ANDRADE Attending Unavailable CAMACHO, DR ANDRADE Admitting Unavailable CONNELL, DR SERGIO Maldonado Primary Care Unavailable CAMACHO, DR ANDRADE Consulting Unavailable Zieber, DR Varner [...] Care Unavailable DOUG, DR ANDRADE Attending Unavailable CAMACHO, DR ANDRADE Admitting Unavailable CONNELL, DR SERGIO Maldonado Primary Care Unavailable CAMACHO, DR ANDRADE Consulting Unavailable CAMACHO, DR ANDRADE Attending Unavailable CAMACHO, DR ANDRADE Admitting Unavailable CAMACHO, DR ANDRADE Consulting Unavailable CONNELL, DR SERGIO Maldonado Primary Care Unavailable RADHA PATEL Consulting Unavailable Sergio Connell Unavailable DO Sukhdeep Crockett Attending Provider [phone] MD Sergio Connell Primary Care Provider Sukhdeep Crockett Attending Unavailable Sukhdeep Crockett Admitting Unavailable Sergio Connell Primary Care Unavailable Pocos, Bunyn Puentes Referring Unavailable Pocos, Bunny Puentes Admitting Unavailable Pocos, Bunny Puentes Attending Unavailable Pocos, Bunny Puentes Referring Unavailable Pocos, Bunny Puentes Admitting Unavailable Pocos, Bunny Puentes Attending Unavailable Pocos, Bunny Puentes Referring Unavailable Pocos, Bunny Puentes Attending Unavailable Pocsantana, Bunny Puentes Admitting Unavailable Sergio Connell MD Primary Care Provider [phone] Lupe CAMACHO Attending Unavailable CAMACHO, Lupe Phan Attending Unavailable CAMACHO, Lupe Phan Attending Unavailable Pocos, Bunny Puentes Attending Unavailable Pocos, Bunny Puentes Referring Unavailable Pocos, Bunny Puentes Admitting Unavailable Sergio Connell MD Primary Care Provider POCOS, BUNNY Puentes Referring Unavailable POCOS, BUNNY Puentes Attending Unavailable POCOS, BUNNY Puentes Referring Unavailable POCOS, BUNNY Puentes Referring Unavailable POCOS, BUNNY Puentes Attending Unavailable POCOS, BUNNY Puentes Referring Unavailable POCOS, BUNNY Puentes Referring Unavailable LEONARDCARMEN Attending Unavailable SERGIO CONNELL Referring Unavailable POCOS, BUNNY Puentes Attending Unavailable POCOS, BUNNY Puentes Referring Unavailable POCOS, BUNNY Puentes Attending Unavailable BENEDICT, AIXA Attending Unavailable POCOS, BUNNY Puentes Referring Unavailable POCOS, BUNYN Puentes Referring Unavailable POCOS, BUNNY Puentes Attending Unavailable POCOS, BUNNY Puentes Referring Unavailable POCOS, BUNNY Puentes Attending Unavailable POCOS, BUNNY Puentes Attending Unavailable CAMACHO, Lupe Phan Attending Unavailable CAMACHO, Lupe Phan Attending Unavailable CAMACHO, Lupe R Attending Unavailable CAMACHO, Lupe Phan Admitting Unavailable Allergies Allergy Classification Reported Allergen(s) Allergy Type Date of Onset Reaction(s) Facility (8 sources) Acetaminophen / oxyCODONE; Translations: [acetaminophen-oxyc odone] Drug Allergy Nausea and vomiting (disorder) [facility] Comment on above: Can take Gazelle or hy drocodone without issue (20 sources) Codeine; Translations: [codeine] Drug Allergy 07-06-20 15 Nausea present (context-depen dent category), Nausea Only, Unknown [facility] (14 sources) Penicillins; Translations: [penicillins] Drug allergy 07-09-18 62 fever [facility] (20 sources) Prochlorperazine; Translations: [prochlorperazine] Drug Allergy 10-28-19 23 pt states family hx he has never had. sister x2 severe reaction muscle rigidity, Unknown [facility] (1 source) Acetaminophen / oxyCODONE Drug Allergy [facility] (1 source) Codeine Drug Allergy 09-16-19 14 [facility] (1 source) Prochlorperazine Drug Allergy 07-09-18 62 [facility] (11 sources) Penicillin G Drug Allergy Unknown [facility] Other (8 sources) Substance with penicillin structure and antibacterial mechanism of action (substance) Drug allergy 04-01-20 13 Unknown [facility] Other (8 sources) Compazine *ANTIPSYCHOTICS/ANT IMANIC AGENTS* Propensity to adverse reactions 04-01-20 13 Unknown [facility] Other (2 sources) patient allergy list reviewed by nurse or physicia Propensity to adverse reactions 11-08-19 14 Comment:Done [facility] Other (2 sources) Allergies Reconciled Propensity to adverse reactions Unknown [facility] Other (1 source) Codeine Drug Allergy 06-14-20 23 [facility] Repository (1 source) Penicillin Drug Allergy 06-14-20 23 [facility] Repository (1 source) Prochlorperazine Drug Allergy 06-14-20 23 [facility] Repository (1 source) Unable to Assess Drug allergy (disorder) 06-21-20 23 [facility] Repository (4 sources) Acetaminophen / oxyCODONE; Translations: [Percocet 5/325] Drug Allergy [facility] Repository (15 sources) Acetaminophen / oxyCODONE Drug Allergy 10-28-19 23 GI intolerance [facility] Medications Current Medications Medication Drug Class(es) Dates Sig (Normalized) Sig (Original) acetaminophen 325 mg / HYDROcodone bitartrate 5 mg oral tablet (1 source) Opioid Agonist Start: 06-20-2021 Gazelle 325 mg-5 mg oral tablet 1 tab(s), Oral, TID for pain, 20 tab(s), Refill(s) 0, [id number], 177.8, cm, 06/07/21 13:24:00 EST, Height/Length Dosing, 113, kg, 06/07/21 13:24:00 EST, Weight Dosing Start Date: 06/20/21 Status: Ordered aspirin 81 mg delayed release oral tablet (13 sources) Platelet Aggregation Inhibitor, Nonsteroidal Anti-inflammatory Drug Start: 03-18-2024 take 1 tablet by mouth twice daily aspirin 81 mg Oral EC Tab 81 mg = 1 tab(s), Oral, BID, # 60 tab(s), Refills(s) 0, Pharmacy: [id number], 177.5, cm, 02/18/24 14:14:00 EDT, Height/Length Dosing, 111.4, kg, 02/18/24 14:14:00 EDT, Weight Dosing Start Date: 03/18/24 Status: Ordered End: 10-13-2024 take 1 tablet by mouth once daily aspirin 81 MG EC tablet Take 81 mg by mouth Daily 10/13/2024 Discontinued (Therapy completed) cefadroxil 500 mg oral capsule (1 source) Cephalosporin Antibacterial Start: 03-18-2024 End: 03-20-2024 take 1 capsule by mouth every twelve hours cefadroxil 500 mg Cap 500 mg = 1 cap(s), Oral, q12hr, X 2 day(s), # 4 cap(s), Refills(s) 0, Pharmacy: [id number], 177.5, cm, 02/18/24 14:14:00 EDT, Height/Length Dosing, 111.4, kg, 02/18/24 14:14:00 EDT, Weight Dosing Start Date: 03/18/24 Stop Date: 03/20/24 Status: Ordered cetirizine hydrochloride 10 mg oral tablet (2 sources) Histamine-1 Receptor Antagonist take 1 tablet by mouth once daily cetirizine (ZyrTEC) 10 MG tablet Take 10 mg by mouth Daily Active CoQ10 (8 sources) Start: 04-21-2021 take 300 mg by mouth once daily CoQ10 300 mg, Oral, Daily, Refills(s) 0, Prophylaxis Start Date: 04/21/21 Status: Ordered Repeat number: 1 Start: 04-21-2021 take 300 mg by mouth once adele y CoQ10 300 mg, Oral, Daily, Refills(s) 0, Prophylaxis Start Date: 04/21/21 Status: Ordered docusate sodium 100 mg oral capsule (2 sources) Start: 03-18-2024 take 1 capsule by mouth twice daily as needed for constipation Colace 100 mg Cap 100 mg = 1 cap(s), Oral, BID, PRN for constipation, # 40 cap(s), Refills(s) 0, Pharmacy: [id number], 177.5, cm, 02/18/24 14:14:00 EDT, Height/Length Dosing, 111.4, kg, 02/18/24 14:14:00 EDT, Weight Dosing Start Date: 03/18/24 Status: Ordered hydroCHLOROthiazide 25 mg oral tablet (20 sources) Thiazide Diuretic Start: 01-26-2016 End: 10-13-2024 take 1 tablet by mouth once daily hydrochlorothiazide 25 mg Tab 25 mg = 1 tab(s), Oral, Daily, Refills(s) 0 Start Date: 01/26/16 Status: Ordered Repeat number: 1 levothyroxine sodium 0.088 mg oral tablet (20 sources) l-Thyroxine Start: 11-20-2023 End: 10-30-2024 Levothyroxine 88 mcg tablet Active 0 .ROUTE .COMPLEX October 30, 2024 4:44pm TAKE 1 TABLET ONCE DAILY Start: 08-16-2022 End: 11-20-2023 take 1 tablet by mouth in the morning levothyroxine (Synthroid, Levoxyl) 88 MCG tablet Take 88 mcg by mouth in the morning. 08/16/2022 Active Start: 08-16-2022 take 1 tablet by sondra th every twenty-four hours Levothyroxine Sodium 88 MCG 1 tablet Orally Once a day for 90 days Aug, Active Start: 06-07-2021 take 1 tablet by sondra th once daily levothyroxine 75 mcg (0.075 mg) Tab 75 mcg = 1 tab(s), Oral, Daily, Thyroid Start Date: 06/07/21 Status: Ordered Repeat number: 1 Start: 06-07-2021 take 1 tablet by sondra [...] 7days, # 40 tab(s), Refills(s) 0, Pharmacy: [facility] #[id number], 177.5, cm, 02/18/24 14:14:00 EDT, Height/Length Dosing, 111.4, kg, 02/18/24 14:14:00 EDT, Weight Dosing Start Date: 03/18/24 Status: Ordered Prevagen (2 sources) Start: 12-04-19 take 1 ug by mouth once daily Prevagen mcg, Oral, Daily, Refills(s) 0 Start Date: 12/03/24 Status: Ordered Repeat number: 1 rosuvastatin calcium 20 mg oral tablet (20 sources) HMG-CoA Reductase Inhibitor Start: 08-16-19 End: 10-14-19 take 1 tablet by mouth in the morning rosuvastatin (Crestor) 20 MG tablet Take 20 mg by mouth in the morning. 08/16/2022 Active Start: 11-24-2016 take 20 mg by mouth at bedtime Crestor 20 mg, Oral, Bedtime, Refills(s) 0, High cholesterol Start Date: 11/24/16 Status: Ordered Repeat number: 1 tadalafil 5 mg oral tablet (20 sources) Phosphodiesterase 5 Inhibitor Start: 06-16-2024 take 1 tablet by mouth once daily Tadalafil 5 mg tablet Active 5 MG PO Daily June 16, 2024 1:00am Start: 11-02-2023 Cialis 20 mg T ab 20 mg = 1 tab(s), Oral, As Directed, PRN erectile dysfunction, # 30 tab(s), Refills(s) 3, Pharmacy: [facility] #[id number], 178, cm, 11/02/23 11:57:00 EDT, Height/Length Dosing, 102, kg, 11/02/23 11:57:00 EDT, Weight Dosing Start Date: 11/02/23 Status: Ordered Quantity: 30.0 Unit: tab(s) Repeat number: 4 Indications: Male erectile dysfunction, unspecified; tamsulosin hydrochloride 0.4 mg oral capsule (20 sources) alpha-Adrenergic Jori Start: 11-28-2023 take 1 capsule by mouth twice daily Flomax 0.4 mg Cap 0.4 mg = 1 cap(s), Oral, BID, # 180 cap(s), Refills(s) 3, Pharmacy: [facility]acy #[id number], 178, cm, 11/02/23 11:57:00 EDT, Height/Length Dosing, 102, kg, 11/02/23 11:57:00 EDT, Weight Dosing Start Date: 01/07/24 Status: Ordered Quantity: 180.0 Unit: cap(s) Repeat number: 4 Start: 11-28-2023 Tamsulosin Act faye MG PO November 28, 2023 12:00am FreeTextSig: Orally; Note: Source Status: Taking; Provider: Ko Tapia ( ) Start: 01-17-2021 take 1 capsule by [facility] twice daily Flomax 0.4 mg Cap 0.4 mg = 1 cap(s), Oral, BID, # 180 cap(s), Refills(s) 3, Pharmacy: [facility]acy #[id number], 178, cm, 05/29/22 9:35:00 EST, Height/Length Dosing, 102.2, kg, 05/29/22 9:35:00 EST, Weight Dosing Start Date: 11/02/22 Status: Ordered take 1 capsule by [facility] every twenty-four hours in the morning tamsulosin (Flomax) 0.4 MG 24 hr capsule Take 0.4 mg by mouth in the morning and 0.4 mg before bedtime. Active traMADol hydrochloride 50 mg oral tablet (1 source) Opioid Agonist Start: 06-25-2024 End: 07-02-2024 take 1 tablet by mouth every six hours for pain, then take 2 tablets by mouth every six hours for pain traMADol (Ultram) 50 MG tablet Indications: Carpal tunnel syndrome on right May take 1 tablet (50 mg) by mouth every 6 (six) hours if needed for severe pain. May also take 2 tablets (100 mg) every 6 (six) hours if needed for severe pain. Do all this for 7 days. 30 tablet 06/25/2024 07/02/2024 Active ubidecarenone 10 mg oral capsule (15 sources) take 1 capsule by mouth in the morning coenzyme Q-10 10 MG capsule Take 10 mg by mouth in the morning. Active vitamin b6 100 mg oral tablet (5 sources) Start: 02-18-2024 take 100 mg by mouth twice daily Vitamin B6 100 mg, Oral, BID, Refills(s) 0, Prophylaxis Start Date: 02/18/24 Status: Ordered Repeat number: 1 Completed/Discontinued Medications Medication Drug Class(es) Dates Sig (Normalized) Sig (Original) cephalexin 500 mg oral capsule (11 sources) Cephalosporin Antibacterial Start: 04-16-2024 End: 10-13-2024 cephalexin (Keflex) 500 MG capsule Indications: S/P total right hip arthroplasty Take all 4 capsules one hour before the procedure. 4 capsule 04/16/2024 10/13/2024 Discontinued methylPREDNISolone (11 sources) Corticosteroid Start: 03-01-2015 Depo-Medrol [...] Problem Classification Problem Date Documented Date Episodic/Chronic Abdominal pain (5 sources) Right flank pain; Translations: [Unspecified abdominal pain] Onset: 12-03-2024 11-04-2024 Episodic Allergic reactions (16 sources) Contact dermatitis due to drugs AND/OR medicine; Translations: [Contact dermatitis and other eczema due to drugs and medicines in contact with skin] Onset: 09-03-2015 Episodic Calculus of urinary tract (20 sources) Kidney stone; Translations: [Calculus of kidney] Onset: 07-10-2014 Episodic Comment on above: in 2012 Conditions associated with dizziness or vertigo (2 sources) Benign paroxysmal vertigo, bilateral Episodic Delirium, dementia, and amnestic and other cognitive disorders (6 sources) Cognitive disorder; Translations: [Unspecified mental disorder due to known physiological condition] 11-17-2024 Chronic Diabetes mellitus without complication (9 sources) Other [...] of uncertain behavior of skin] Episodic Osteoarthritis (15 sources) Osteoarthritis of knee; Translations: [Osteoarthritis of knee, unspecified] Onset: 05-27-2023 05-27-2023 Chronic Other aftercare (2 sources) H/O: high risk medication; Translations: [Other buttermaker (current) drug therapy] 11-17-2024 Episodic Other circulatory disease (1 source) Disorder of carotid artery; Translations: [Disorder of arteries and arterioles, unspecified] 06-16-2024 Chronic Other circulatory disease (4 sources) Other [...] reading, without diagnosis of hypertension] Episodic Other circulatory disease (1 source) Carotid bruit; Translations: [Other specified symptoms and signs involving the circulatory and respiratory systems] 06-26-2024 Episodic Other connective tissue disease (6 sources) History of total hip arthroplasty; Translations: [...] of dyspnea Episodic Other lower respiratory disease (3 sources) Nodule of lung; Translations: [Solitary pulmonary nodule] 11-28-2023 Episodic Other lower respiratory disease (1 source) Solitary pulmonary nodule Episodic Other male genital disorders (9 sources) Male erectile dysfunction, unspecified; Translations: [Erectile dysfunction] Onset: 11-02-2023 Chronic Other nervous system disorders (4 sources) Carpal tunnel syndrome of right wrist; Translations: [Carpal tunnel syndrome, right upper limb] 06-16-2024 Chronic Other nervous system disorders (4 sources) Tremor; Translations: [Tremor, unspecified] 11-17-2024 Episodic Other non-epithelial cancer of skin (20 sources) History of malignant neoplasm of skin; [...] Chronic Other nutritional; endocrine; and metabolic disorders (20 sources) History of hypercholesterolemia; Translations: [Personal history of other endocrine, nutritional and metabolic disease] Onset: 05-27-2023 11-24-2016 Episodic Other screening for suspected conditions (not mental disorders or infectious disease) (20 sources) Raised prostate specific antigen; Translations: [Elevated [...] for prophylactic vaccination and inoculation, Influenza] Episodic Residual codes; unclassified (1 source) Memory impairment; Translations: [Other amnesia] 06-16-2024 Episodic Retinal detachments; defects; vascular occlusion; and retinopathy (1 source) Hemorrhage of left retina; Translations: [Retinal hemorrhage, left eye] 06-16-2024 Chronic Thyroid disorders (20 sources) Hypothyroidism; Translations: [Hypothyroidism, [...] Classification Problem Date Documented Da te Episodic/Chronic Genitourinary symptoms and ill-defined conditions (20 sources) Microscopic hematuria; Translations: [Nocturia] Onset: 05-27-2023 04-21-2021 Episodic Other non-traumatic joint disorders (8 sources) [...] Test Name Value Interpretation Reference Range Facility Ambulatory Visit Summaryon 0 5-28-2025 Ambulatory Visit Summary Ambulatory Visit Summary GERRY LAY :1950 Visit Date:12/03/2024 Ambulatory Visit Instructions Your Diagnosis Elevated PSA BPH with urinary obstruction Kidney stone Right flank pain Erectile dysfunction Your Care Team Attending Physician - DOUG NATHAN, Lupe Phan Primary Care Physician - SERGIO CONNELL MD This Is Your Medications List tadalafil (Cialis 20 mg Tab) tamsulosin (Flomax 0.4 mg Cap) Contact prescribing physician if questions or concerns cholecalciferol (Prevagen) hydrochlorothiazide (hydrochlorothiazide 25 mg Tab) levothyroxine (levothyroxine 75 mcg (0.075 mg) Tab) pyridoxine (Vitamin B6) rosuvastatin (Crestor) ubiquinone (CoQ10) Procedures Performed Total hip replacement [...] structure of left shoulder, Tonsillectomy with adenoidectomy. Discharge Vitals Temperature (Temporal Artery) 37 ???C Heart Rate (Peripheral) 78 Respiratory Rate 16 Blood Pressure 133/80 Height 178 cm Height 70 in Weight 115 kg Weight 253.531 lb BMI 36.3 What to do next You Need to Schedule the Following Appointments Follow Up with DOUG NATHAN, Lupe Phan, ANNABEL When: Where: [facility] [address] [place] [address]- Medications What How Much When Why Instructions Unchanged tadalafil (Cialis 20 mg Tab) 1 Tablets By Mouth As Directed as needed for erectile dysfunction Erectile dysfunction Unchanged tamsulosin (Flomax 0.4 mg Cap) 1 Capsules By Mouth 2 times a day Unchanged cholecalciferol (Prevagen) By Mouth Every day Contact prescribing physician if questions or concerns Unchanged hydrochlorothiazide (hydrochlorothiazide 25 mg Tab) 1 Tablets By Mouth Every day Contact prescribing physician if questions or concerns Unchanged levothyroxine (levothyroxine 75 mcg (0.075 mg) Tab) 1 Tablets By Mouth Every day Contact prescribing physician if questions or concerns Unchanged pyridoxine (Vitamin B6) 100 Milligram By Mouth 2 times a day Contact prescribing physician if questions or concerns Unchanged rosuvastatin (Crestor) 20 Milligram By Mouth At bedtime Contact prescribing physician if questions or concerns Unchanged ubiquinone (CoQ10) 300 Milligram By Mouth Every day Contact prescribing physician if questions or concerns Allergies Compazine (pt states family hx he has never had. sister x2 severe reaction muscle rigidity) Percocet 5/325 (N&V - Nausea and vomiting) codeine (Nausea present) penicillins (fever) Problems Ongoing - Any problem that you are currently receiving treatment for. BPH with urinary obstruction Elevated PSA Erectile dysfunction History of skin cancer Hyperlipemia Hypothyroidism Kidney stone Right flank pain Patient Survey You may receive a survey via text or e-mail asking about your office visit. Please share your experience with us by completing your survey. We appreciate your feedback and thank you for choosing us for your care. Education Materials 24-Hour Urine Collection Why am I having this test? A 24-hour urine specimen is a lab test that requires you to collect all of your urine for an entire day. This is sometimes called a timed urine test. It can provide more information than a single urine sample. There are many reasons to have this test. Your health care provider may order the test to check for or monitor the following conditions: ??? High blood pressure. ??? Kidney disease. ??? Kidney stones. ??? Urinary tract infections. ??? . ??? Diabetes. How do I prepare for this test? You may be asked to follow a special diet during or before the collection period. Follow any instructions from your health care provider. If no special instructions are given, you may eat and drink normally. ??? Take oisb-sdw-rknmyao and prescription medicines only as told by your health care provider. ??? Let your health care provider know about any medicines that you are taking, including ullt-izu-skgtyvh medicines, vitamins, herbs, and supplements. ??? Choose a collection day when you can be at home or when you have a place to store the urine. All urine must be collected during the testing period. How do I do a 24-hour urine collection? When you get up in the morning, urinate in the toilet and flush. Write down the time. This will be your start time on the day of collection and your end time on the next mor (more content not included)... Normal [facility] Reminderson 12-03-2024 Reminders Reminders From: Ketty Hernandez To: [facility] - Pending Results; Sent: 12/03/2024 12:13:48 EDT Show up: 12/29/2024 12:13:00 EDT Subject: metabolic work up Due Date/Time: 01/02/2025 12:13:00 EDT Reminder/Recall Maricruz Sanchez- Metabolic work up done in December, Order given to pt Dr. Camacho wants to review results himself, and pt to be called. Normal [facility] Urology Office/Clinic Noteon 12-03-2024 Urology Office/Clinic Note Urology Office/Clinic Note Chief Complaint 1 year with PSA and KUB HPI Staff 6 month follow up w/PSA & KUB Dx: elevated PSA, BPH with urinary obstruction, kidney stone and ED PSA done 12/02/24 - 2.3 & 28.3% Previous PSA 05/21/24 - 3.62 * Tamsulosin 0.4mg BID, Cialis 20mg prn IPSS score today is 6. Pt has complaints of right sided flank pain on and off. States that with a deep breath it makes the pain worse. Denies any visible blood in urine. No complaints about urination habits. History of Present Illness Tests reviewed: UA, PSA, KUB I have reviewed the [...] Physical Exam Vitals & Measurements T: 37 ???C(Temporal Artery) HR: 78(Peripheral) RR: 16 BP: 133/80 HT: 178 cm HT: 70 in WT: 115 kg WT: 253.531 lb BMI: 36.3 General Appearance: alert, no distress, well nourished, well developed male. Assessment/Plan Pt goes to [place] from July to October. 1. Elevated PSA (R97.20: Elevated prostate specific antigen [PSA]) PSA: 04/15/21 - 2.07 05/03/22 - 2.63 05/24/23 - 2.08 10/29/23 - 3.70 05/21/24 - 3.62 12/02/24 - 2.30 & 28.3% CARMEN 11/02/23: 40g, no nodules. PSA decreased. Will cont to monitor. 2. BPH with urinary obstruction (N40.1: Benign prostatic hyperplasia with lower urinary tract symptoms) UA neg. IPSS 6. Taking Tamsulosin 0.4 mg BID. Voiding well. Gets strong urge when he pulls into his garage. Pt states he always voids around q2-3hr. Stream not hesitant. -Timed voids q2-3hr to prevent urgency episodes 3. Kidney stone (N20.0: Calculus of kidney) [...] of several small stones within L kidney. CT AP wo con 11/05/24 [facility] - BL renal stones up to 4 mm (sided not mentioned). KUB 12/03/24 [facility] - A few small L renal stones similar to 12/9/21. No R sided stones. Reviewed imaging with pt. Recommended repeating metabolic workup since he cont to form stones. Follow up depending on metabolic workup results below or sooner if needed. Pt understands and agrees with plan. -Complete metabolic workup (24hr urine and blood), will call pt with results 4. Right flank pain (R10.9: Unspecified abdominal pain) Has been waking every morning with R flank pain. Pain only in the morning. Pain worsens with deep breathing as well. Denies any new activities. Pt feels it is kidney pain and not musculoskeletal. It is possible that there is a small stone in his ureter that is intermittently obstructing that was not visualized by the CT. When he lays on R side, pain resolves. Has pain when on back or L side. Given this information, pain unlikely to be caused from stone. Stone pain cannot be improved by changing position, likely musculoskeletal. Was given medication while in [place] that improved pain, med not available in the . Has not had any pain on the L (side with stones). 5. Erectile dysfunction (N52.9: Male erectile dysfunction, unspecified) Cialis 20mg prn. Follow-up With When Contact Information DOUG NATHAN, Lupe Phan, [facility] [address] [place] [address]- Additional Instructions: Follow up depending on metabolic workup results Patient Education 24-Hour Urine Collection Thania Garcias, personally scribed for Dr. Camacho on 12/03/2024 11:50:16. . Documentation recorded by the scribeThania, accurately reflects the services(s) I performed and decisions made by me. Authenticated by Dr. Camacho on 12/03/2024 11:58:07. Problem List/Past Medical History Ongoing BPH with urinary obstruction Elevated PSA Erectile dysfunction History of skin cancer Hyperlipemia Hypothyroidism Kidney stone Historical No qualifying data Procedure/Surgical History Total hip replacement (03/18/2024), ESWL - Extracorporeal shockwave lithotripsy for renal calculus (06/16/2021), Right knee arthroscopy with partial medial (more content not included)... Normal [facility] Comment on above: Result Comment: Elec tronically Signed By: Lupe CAMACHO MD R\.br\Date and Time Signed: 12/03/24 11:58 EDT\.br\Electronically Co-Signed By: Thania Sepulveda P\.br\Date and Time Co-Signed: 12/03/24 11:51 EDT\.br\Electronically Co-Signed By: Thania Sepulveda P\.br\Date and Time Co-Signed: 12/03/24 11:52 EDT\.br\Electronically Co-Signed By: Thania Sepulveda P\.br\Date and Time Co-Signed: 12/03/24 11:56 EDT XR Abdomen 1 Viewon 12-04-19 XR Abdomen 1 View Exam Date/Time: 12/03/2024 10:55 EDT Reason for Exam: Kidney stone Report IMPRESSION: SMALL LEFT RENAL CALCULI EXAM: XR Abdomen 1 View DATE: 12/03/2024 10:54 AM CLINICAL HISTORY: Kidney stone. Technologist Comments: Kidney stones. Pt had ct at [facility] 2 weeks ago showing kidney stones. Pt states is having right sided flank pain every morning and off and on through the day has been for about 3 weeks now. prev sx: litho, cholecystectomy. COMPARISON: 06/16/2021 TECHNIQUE: Two supine radiographs of the abdomen and pelvis were obtained. FINDINGS: The study is limited by the patient's body habitus and overlying bowel gas and stool artifact. A few small left renal calculi appear similar to 06/16/2021. There are no significant calculi identified overlying the right kidney, expected courses of either ureter or bladder. Small phleboliths are again noted in the pelvis. The bowel gas pattern is unremarkable. There are no other significant changes identified. Surgical clips in the right upper quadrant from previous cholecystectomy. Ordering Provider: Lupe CAMACHO FINAL REPORT Dictated: 12/03/2024 11:08 am Mark Zuniga MD Signed (Electronic Signature): 12/03/2024 11:08 am Signed by: Mark Zuniga MD Transcribed by: NICCI Technologist: MANAN Ford [facility] XR Hip - right 3 [facility] Imaging Result: X-rays AP pelvis, right lateral hip , a total of 3 views with permanent images saved to the record, show well-fixed, well-aligned total hip arthroplasty bilaterally. No evidence of fracture, loosening or catastrophic wear. [facility] ALL CBC WITH AUTO DIFFon BASOPHILS ABSOLUTE AUTO [address] [facility] Basophils/100 WBC (Bld) 0.6 % 0.2 - 2.0 % [facility] Eosinophils/100 WBC (Bld) 1.1 % 0.9 - 7.0 % [facility] Erythrocyte distribution width (RBC) [Ratio] 13.1 % 11.0 - 15.0 % [facility] Hematocrit (Bld) [Volume fraction] 46.6 % 42.0 - 54.0 % [facility] Hemoglobin (Bld) [Mass/Vol] 15.3 g/dL 14.0 - 18.0 g/dL [facility] IMMATURE GRANULOCYTES ABS AUTO 0.[address] [facility] Immature granulocytes/100 WBC (Bld) 0.2 % 0.0 - 0.5 % [facility] Interpretation and review of laboratory results Abnormal [facility] LYMPHOCYTES ABSOLUTE AUTO 1.[address] [facility] Lymphocytes/100 WBC (Bld) 22.2 % 20.5 - 60.0 % [facility] MCH (RBC) [Entitic mass] 30.9 pg 25.9 - 34.[address] [facility] MCHC (RBC) [Mass/Vol] 32.8 g/dL 29.9 - 35.2 g/dL [facility] MCV (RBC) [Entitic vol] 94.1 fL High 80.0 - 94.[address] [facility] MONOCYTES ABSOLUTE AUTO 0.[address] [facility] Monocytes/100 WBC (Bld) 9.3 % 1.7 - 12.0 % [facility] NEUTROPHILS ABSOLUTE AUTO 4.[address] [facility] Neutrophils/100 WBC (Bld) 66.6 % 43.0 - 75.0 % [facility] Platelet mean volume (Bld) [Entitic vol] 9.7 fL 9.5 - 13.[address] [facility] TBH EO # 0.[address] [facility] TB PLT 182 [facility] RBC 4.[address] [facility] TB WBC 6.[address] [facility] XR Hip - right 3 Viewson Radiology Study observation (narrative) [facility] Ambulatory Visit Summaryon 1 07-26-2023 Ambulatory Visit Summary Ambulatory Visit Summary GERRY LAY :1950 Visit [...] 2024 8:45 AM EDT With: DOUG NATHAN, Lupe Phan Where: [facility] [place] [address]- Medications What How Much When Why Instructions Changed aspirin (aspirin 81 mg Oral EC Tab) 1 Tablets By Mouth 2 times a day Changed rosuvastatin (Crestor) 20 Milligram By Mouth At bedtime Changed tamsulosin (Flomax 0.4 mg Cap) 1 Capsules By Mouth 2 times a day Pickup at [facility]/pharmacy #6177 Unchanged docusate (Colace 100 mg Cap) [...] Milligram By Mouth Every day Pharmacy Information [facility]/pharmacy #[id number]: [address], [place] [phone] Allergies Compazine (pt states family hx he [...] you for choosing us for your care. Normal [facility] Urology Office/Clinic Noteon 05-26-2024 Urology Office/Clinic Note Urology Office/Clinic Note Chief Complaint 7 month [...] well developed male. Assessment/Plan Pt goes to [place] from July to October. 1. Elevated PSA [...] Contact Information DOUG NATHAN, Lupe Phan, URL [facility] [address], [place] [address] [phone] Additional Instructions: 6 mos w/ PSA and KUB Patient Education Kidney Stones, [place]aca-nv-Btwp I, Ashley Ho, personally scribed for Dr. Camacho on 05/26/2024 09:53:15. . Documentation recorded by the scribeAshley, accurately reflects the services(s) I performed and decisions made by me. Authenticated by Dr. Camacho on 05/26/2024 09:58:31. Problem List/Past Medical History [...] structure of left shoulder, Tonsillectomy with adenoidectomy. M (more content not included)... Normal [facility] Comment on above: Result Comment: Elec tronically Signed By: Lupe CAMACHO MD\.br\Date and Time Signed: 05/26/24 09:58 EST\.br\Electronically Co-Signed By: Ashley Ho\.br\Date and Time Co-Signed: 05/26/24 09:53 EST\.br\Electronically Co-Signed By: Ashley Ho\.br\Date and Time Co-Signed: 05/26/24 09:54 EST XR Hip - right 3 [facility] Result: Xrays taken in the office today, 3 views including AP pelvis and lateral hip of the operative side, saved to the permanent record, show stable position and alignment of the hip prosthesis. No sign of loosening, fracture or catastrophic wear. [facility] Radiology Study observation (narrative) [facility] Surgical Pathology Reporton 03-24-2024 Surgical Pathology Report [facility] [address] [place] [address]- Surgical Pathology Report Collected Date/Time: 03/18/2024 09:43 [...] tissue 2 - Bone after decalcification (DC) DC[facility] Microscopic Description Microscopic examination performed unless gross only specified. Normal [facility] Comment on above: Performed By: #### 4 [id number] #### [facility] [address] [place] [address] Main OR Intraoperative Recor don 03-20-2024 Main OR Intraoperative Record Main OR Intraoperative Record IntraOp Document Type FT Summary Primary Physician: Bunny Hewitt DO Finalized Date/Time: 03/20/24 10:47:20 Pt. Name: GERRY LAY/Sex: 1950 Male Med Rec #: [id number] Physician: Bunny Hewitt DO Financial #: [id number] Pt. Type: A Room/Bed: [place] [address] Admit/Disch: 03/18/24 05:49:12 - 03/18/24 14:50:00 Institution: Case Times FT Entry 1 Patient Times In Room 03/18/24 08:32:00 Out Room 03/18/24 10:31:00 Procedure Times Start 03/18/24 09:09:00 Stop 03/18/24 10:24:00 Anesthesia Times Start 03/18/24 08:32:00 Stop 03/18/24 10:31:00 Block Timeout w03/18/24 08:15:00 Anesthesia Last Modified By: Homar STEPHENSON, Harika Aguilera 03/18/24 10:31:36 General Comments: block by dr veloz, assisted by danika sher, colton. heart rate 67, spo2 99% on 2lpm o2 via nasal cannula. colton oleary 03/20/24 Chart opened to review and send charges [facility]oth CSFA Case Attendance FT Entry 1 Entry 2 Entry 3 Case Attendee Daniel CAA, Regino Hewitt DO, Bunny Cisneros TIRE MANAGER, Verna Hi Role Performed Anesthesiologist Surgeon - Primary TIRE MANAGER/SA [employer] System Installer Time In 03/18/24 08:32:00 03/18/24 08:58:00 03/18/24 08:32:00 Time Out 03/18/24 10:31:00 03/18/24 10:16:00 03/18/24 10:31:00 Procedure HIP TOTAL ROBOT HIP TOTAL ROBOT HIP TOTAL ROBOT ARTHROPLASTY(Right) ARTHROPLASTY(Right) ARTHROPLASTY(Right) Comments dr veloz supervising Last Modified By: Homar RN, Harika Graf RN, Harika Graf RN, Harika Aguilera 03/18/24 10:31:37 03/18/24 10:31:37 03/18/24 10:31:37 Entry 4 Entry 5 Entry 6 Case Attendee Homar RN, Nohemi Bright TIRE MANAGER, Gypsy Maldonado Role Performed Speed Operator - Primary Scrub - Primary Staff [...] Comments 3rd scrub Last Modified By: Homar STEPHENSON, Harika Graf RN, Harika Aguilera 03/18/24 10:31:37 03/18/24 10:31:37 General Comments: mendel spnece, also in attendance. colton olearyrn new grad Protocols FT Pre-Care Text: Implements protective measures [...] Homar Mclaughlin RN, Maryuri Albright Sydney A, Marietta HENSON, [...] 03/18/24 0 (more content not included)... Normal [facility] XR Hip 1 View Right + Pelvis [...] mGy = na DAP = na Normal [facility] Operative Reporton Operative Report Operative Report SURGERY DATE: 03/18/2024 LAY OUT DRAFTER: Verna Cisneros C.F.A. PREOPERATIVE DIAGNOSIS: Right hip osteoarthritis POSTOPERATIVE DIAGNOSIS: Right hip osteoarthritis OPERATION: Right hip robotic-assisted total hip arthroplasty using Andrew, posterolateral approach ANESTHESIA: Spinal as well as fascia iliaca block ANESTHESIOLOGIST: Jeni ArndtAGilmer ESTIMATED BLOOD LOSS: 300 mL INTRAVENOUS FLUIDS: Please see operative record SPECIMEN: Bone and soft tissue DRAINS: None COMPLICATIONS: None IMPLANT: Udall Total Hip System with a size 56 [...] arthrosis. Total hip arthroplasty is done with quaker of limb stability, alignment and length. This is done with the [employer] robotic platform. The patient did tolerate the [...] the field. This is seated using the [employer] robotic assist. Adequate seating is identified. The [...] dried trunnion. The hip is located with quaker of limb stability, alignment and the length. The procedure is deemed adequate and complete. The checkpoints are removed individually. Odlswn-[id number]-tlvg is utilized for the posterior capsule, piriformis, [...] #2 Quill (more content not included)... Normal [facility] Comment on above: Result Comment: Elec tronically Signed By: Bunny Hewitt DO\enrike\Date and Time Signed: 03/19/24 07:15 EDT ABO/Rhon 03-18-2024 ABO/Rh Positive Invalid Interpretation Code [facility] Comment on above: Performed By: #### 2 [id number] #### [facility] [address] [place] [address] ABO/Rh History Checkon 03-18 ABO/Rh History Check Verified Hx Blood Type Normal [facility] Comment on above: Performed By: #### 1 [id number] #### [facility] [address] [place] [address] ABSCon 03-18-2024 ABSC Gel Interp Negative Normal [facility] Comment on above: Performed By: #### 1 [id number] ####[facility] [id number] [place] [address] BLOOD BANKOrdered By: Raya Ames on 03-18-2024 ABO/Rh Interp Positive Invalid Interpretation Code [facility] BB Subsection ABSC Gel Interp Negative (03/18/24 6:35 AM) Normal [facility] BB Subsection Blood Bank ID#on 03-18-2024 BBID# [id number] Invalid Interpretation Code [facility] Comment on above: Performed By: #### 1 [id number] #### [facility] [address] [place] [address] Discharge Instructionson Discharge Instructions Discharge Instructions GERRY [...] NATHAN, Lupe Phan Where: [facility] [address] [address]- New Follow Up Appointments after Discharge Follow Up with Bunny Hewitt When: 04/16/2024 02:30 PM EDT Comments: Appointment has already been scheduled. Call for any problems. Where: [address] [place] [address]- [facility] (1) Medications What How Much When Why Instructions Next Dose New aspirin (aspirin 81 mg Oral EC Tab) 1 Tablets By Mouth 2 times a day Pickup at [facility]/pharmacy #6180 New cefadroxil (cefadroxil 500 mg Cap) 1 Capsules By Mouth Every 12 hours Duration: 2 Days Pickup at [facility]/pharmacy #6127 New docusate (Colace 100 mg Cap) 1 Capsules By Mouth 2 times a day as needed for for constipation Pickup at [facility]/pharmacy #6186 New oxycodone (oxyCODONE 5 mg Tab) 1 Tablets By Mouth As Directed 1-2 po q4-6 hrs prn pain Dx: M16.11, Z96.641 Duration: 7days Pickup at [facility]/pharmacy #6177 Unchanged hydrochlorothiazide (hydrochlorothiazide 25 mg Tab) [...] Milligram By Mouth Every day Pharmacy Information [facility]/pharmacy #6177: [address], [place] [phone] Allergies Compazine (pt states family hx he [...] 0 DEGREE POLYETHYLENE INSERT 03/18/2024 [employer] [place], [place] [facility] DISCHARGE INSTRUCTIONS HIP REPLACEMENT [...] should not (more content not included)... Normal [facility] Comment on above: Result Comment: Elec tronically Signed By: Kalina STEPHENSON, Anila Perez\.br\Date and Time Signed: 03/18/24 11:32 EDT Main OR PACU I Recordon 03-09 Main OR PACU I Record Main OR PACU I Rec ord PACU Phase I Document Type FT Summary Primary Physician: Bunny Hewitt DO Finalized Date/Time: 03/18/24 12:29:03 Pt. Name: GERRY LAY/Sex: 1950 Male Med Rec #: [id number] Physician: Bunny Hewitt DO Financial #: [id number] Pt. Type: A Room/Bed: Admit/Disch: 03/18/24 05:49:12 [...] Signed By: Eden Avila RN 03/18/24 12:29 [facility] Main OR PACU II Recordon Main OR PACU II Record Main OR PACU II Record PACU Phase II Document Type FT Summary Primary Physician: Bridgette Bunny Finalized Date/Time: 03/18/24 14:53:34 Pt. Name: GERRY LAY Abram Steele./Sex: 1950 Male Med Rec #: [id number] Physician: Bunny Hewitt DO Financial #: [id number] Pt. Type: A Room/Bed: [facility] Admit/Disch: 03/18/24 05:49:12 - 03/18/24 14:50:00 [...] By: Anila Gilman RN 03/18/24 14:53 Normal [facility] Main OR Preoperative Recordo n 03-18-2024 Main OR Preoperative Record Main OR Preoperative Record PreOp Document Type FT Summary Primary Physician: Bunny Hewitt DO Finalized Date/Time: 03/18/24 09:30:10 Pt. Name: GERRY LAY /Sex: 1950 Male Med Rec #: [id number] Physician: Bunny Hewitt DO Financial #: [id number] Pt. Type: A Room/Bed: [place] [address] Admit/Disch: 03/18/24 05:49:12 - Institution: Case Times [...] By: Harika Graf RN 03/18/24 09:30 Normal [facility] Proceduralon 03-18-2024 Procedural Procedural Patient: GERRY LAY [...] Using maximal sterile barrier technique per current [facility] guidelines including hand hygeine, Guidance (Ultrasound used [...] patient tolerated the procedure as expected. Normal [facility] EMG 1 Extremeityon [address] [facility] NVC 7-8 Nerveson 03-13-[address] [facility] CT Lower Extremity w/o Contr ast Righton [...] Zuniga MD Transcribed by: NICCI Technologist: WILMAR Ford [facility] XR Chest 2 Viewson XR Chest 2 [...] mGy = na DAP = na Normal [facility] BMPon 02-18-2024 Anion gap [Moles/Vol] 12 mmol/L Normal 6-16 [facility] Comment on above: Performed By: #### 2 [id number] #### [facility] [address] [place] [address] Calcium [Mass/Vol] 9.8 mg/dL Normal 8.9-11.1 [facility] Comment on above: Performed By: #### 2 [id number] #### [facility] [address] [place] [address] Chloride [Moles/Vol] 104 mmol/L Normal 101-111 [facility] Comment on above: Performed By: #### 2 [id number] #### [facility] [address] [place] [address] CO2 [Moles/Vol] 28 mmol/L Normal 21-31 [facility] Comment on above: Performed By: #### 2 [id number] #### [facility] [address] [place] [address] Creatinine [Mass/Vol] 1.0 mg/dL Normal 0.5-1.3 [facility] Comment on above: Performed By: #### 2 [id number] #### [facility] [address] [place] [address] Glucose [Mass/Vol] 115 mg/dL Normal 55-199 [facility] Comment on above: Performed By: #### 2 [id number] #### [facility] [address] [place] [address] Potassium [Moles/Vol] 3.6 mmol/L Normal 3.5-5.3 [facility] Comment on above: Performed By: #### 2 [id number] #### [facility] [address] [place] [address] Sodium [Moles/Vol] 140 mmol/L Normal 135-145 [facility] Comment on above: Performed By: #### 2 [id number] #### [facility] [address] [place] [address] Urea nitrogen [Mass/Vol] 25 mg/dL High 5-21 [facility] Comment on above: Performed By: #### 2 [id number] #### [facility] [address] [place] [address] Urea nitrogen/Creatinine [Mass ratio] 25 No Units High 10-20 [facility] Comment on above: Performed By: #### 2 [id number] #### [facility] [address] [place] [address] CBC w/ Auto Diffon 4 Basophils/100 WBC (Bld) 0.7 % Normal 0.0-2.0 [facility] Comment on above: Performed By: #### 2 [id number] #### [facility] [address] [place] [address] Basophils/Leukocytes Auto (Bld) [Pure # fraction] 0.0 E9/L Normal 0.0-0.2 [facility] Comment on above: Performed By: #### 2 [id number] #### [facility] [address] [place] [address] Eosinophils (Bld) [#/Vol] 0.1 E9/L Normal 0.0-0.5 [facility] Comment on above: Performed By: #### 2 [id number] #### [facility] [address] [place] [address] Eosinophils/100 WBC (Bld) 1.2 % Normal 0.0-8.0 [facility] Comment on above: Performed By: #### 2 [id number] #### [facility] [address] [place] [address] Erythrocyte distribution width (RBC) [Ratio] 13.7 % Normal 10.9-14.2 [facility] Comment on above: Performed By: #### 2 [id number] #### [facility] [address] [place] [address] Hematocrit (Bld) [Volume fraction] 47.7 % Normal 37.7-49.0 [facility] Comment on above: Performed By: #### 2 [id number] #### [facility] [address] [place] [address] Hemoglobin (Bld) [Mass/Vol] 16.3 g/dL Normal 13.5-17.5 [facility] Comment on above: Performed By: #### 2 [id number] #### [facility] [address] [place] [address] Lymphocytes (Bld) [#/Vol] 1.3 E9/L Normal 1.0-4.0 [facility] Comment on above: Performed By: #### 2 [id number] #### [facility] [address] [place] [address] Lymphocytes/100 WBC (Bld) 20.2 % Normal 14.0-50.0 [facility] Comment on above: Performed By: #### 2 [id number] #### [facility] [address] [place] [address] MCH (RBC) [Entitic mass] 32.1 pg Normal 27.0-34.0 [facility] Comment on above: Performed By: #### 2 [id number] #### [facility] [address] [place] [address] MCHC (RBC) [Mass/Vol] 34.0 g/dL Normal 31.4-36.0 [facility] Comment on above: Performed By: #### 2 [id number] #### [facility] [address] [place] [address] MCV (RBC) [Entitic vol] 94.2 fL Normal 80.0-100.0 [facility] Comment on above: Performed By: #### 2 [id number] #### [facility] [address] [place] [address] Monocytes (Bld) [#/Vol] 0.7 E9/L Normal 0.2-1.0 [facility] Comment on above: Performed By: #### 2 [id number] #### [facility] [address] [place] [address] Neutrophils (Bld) [#/Vol] 4.2 E9/L Normal 2.0-7.5 [facility] Comment on above: Performed By: #### 2 [id number] #### [facility] [address] [place] [address] Neutrophils/100 WBC (Bld) 67.4 % Normal 36.0-75.0 [facility] Comment on above: Performed By: #### 2 [id number] #### [facility] [address] [place] [address] Platelet mean volume (Bld) [Entitic vol] 8.7 fL Normal 6.4-10.8 [facility] Comment on above: Performed By: #### 2 [id number] #### [facility] [address] [place] [address] Platelets (Bld) [#/Vol] 176.0 E9/L Normal 150.0-500.0 [facility] Comment on above: Performed By: #### 2 [id number] #### [facility] [address] [place] [address] RBC (Bld) [#/Vol] 5.1 E12/L Normal 4.3-5.9 [facility] Comment on above: Performed By: #### 2 [id number] #### [facility] [address] [place] [address] WBC corrected for nucl RBC Auto (Bld) [#/Vol] 6.2 E9/L Normal 4.0-11.0 [facility] Comment on above: Performed By: #### 2 [id number] #### [facility] [address] [place] [address] CHEMISTRYOrdered By: SYSTEM SYSTEM on 02-18-2024 Anion [...] 24 Bilirubin Ql (U) Negative Normal Negative [facility] Comment on above: Performed By: #### 4 [id number] #### [facility] [address] [place] [address] Clarity (U) Clear Normal Clear [facility] Comment on above: Performed By: #### 4 [id number] #### [facility] [address] [place] [address] Color (U) Light-Yellow Normal Yellow [facility] Comment on above: Result Comment: Micr oscopic readings are only performed on those samples that meet specific criteria set forth by [facility]. Performed By: #### 4 [id number] #### [facility] [address] [place] [address] Glucose Ql (U) Negative Normal Negative [facility] Comment on above: Performed By: #### 4 [id number] #### [facility] [address] [place] [address] Hemoglobin Auto test strip (U) [Mass/Vol] Trace Abnormal Negative [facility] Comment on above: Performed By: #### 4 [id number] #### [facility] [address] [place] [address] Ketones Auto test strip Ql (U) Negative Normal Negative [facility] Comment on above: Performed By: #### 4 [id number] #### [facility] [address] [place] [address] Leukocyte esterase Auto test strip Ql (U) Negative Normal Negative [facility] Comment on above: Performed By: #### 4 [id number] #### [facility] [address] [place] [address] Nitrite Auto test strip Ql (U) Negative Normal Negative [facility] Comment on above: Performed By: #### 4 [id number] #### [facility] [address] [place] [address] pH (U) 5.0 [pH] Invalid Interpretation Code 5.0-9.0 [facility] Comment on above: Performed By: #### 4 [id number] #### [facility] [address] [place] [address] Protein Ql (U) Negative Normal Negative [facility] Comment on above: Performed By: #### 4 [id number] #### [facility] [address] [place] [address] Specific gravity (U) [Rel density] 1.023 Invalid Interpretation Code 1.005-1.030 [facility] Comment on above: Performed By: #### 4 [id number] #### [facility] [address] [place] [address] Urobilinogen (U) [Mass/Vol] Negative Normal Negative [facility] Comment on above: Performed By: #### 4 [id number] #### [facility] [address] [place] [address] Type of Urine collection method Clean Catch Normal [facility] Comment on above: Performed By: #### 4 [id number] #### [facility] [address] [place] [address] URINALYSISOrdered By: SYSTEM SYSTEM on 02-18-2024 Bilirubin Ql (U) Negative Normal Negativemg/ d L [facility] UA Auto SS Clarity (U) Clear (02/18/24 10:07 AM) Normal Clear [facility] Auto SS Color (U) Light-Yellow 1 (02/18/24 10:07 AM) Normal Yellow [facility] Auto SS Comment on above: Interpretive Data: M icroscopic readings are only performed on those samples that meet specific criteria set forth by [facility]. Glucose Ql (U) Negative Normal Negativemg/d L [facility] UA Auto SS Hemoglobin Auto test strip (U) [Mass/Vol] Trace mg/dL Invalid Interpretation Code Negativemg/d L [facility] UA Auto SS Ketones Auto test strip Ql (U) Negative Normal Negativemg/d L [facility] UA Auto SS Leukocyte esterase Auto test strip Ql (U) Negative Normal NegativeLeu/ uL [facility] UA Auto SS Nitrite Auto test strip Ql (U) Negative Normal Negativemg/d L [facility] Auto SS pH (U) 5.0 *NA* (02/18/24 10:07 AM) Invalid Interpretation Code 5.0 - 9.0 [facility] Auto SS Protein Ql (U) Negative Normal Negativemg/d L [facility] Auto SS Specific gravity (U) [Rel density] 1.023 *NA* (02/18/24 10:07 AM) Invalid Interpretation Code 1.005 - 1.030 [facility] UA Auto SS Urobilinogen (U) [Mass/Vol] Negative Normal Negativemg/d L [facility] UA Auto SS URINALYSISOrdered By: Katie Uriostegui on 02-18-2024 UA Spec Desc Clean Catch (02/18/24 10:07 AM) Normal [facility] Auto SS eGFRon 02-18-2024 eGFR 79 mL/min/1.73 m2 Normal >=59 [facility] Comment on above: Order Comment: Order added by Discern Expert. Performed By: #### 1 [id number] #### [facility] [address] [place] [address] Lab Reportson 12-04-2023 Lab Reports [id number] 0TIFF Normal [facility] Patient Educationon 11-02-19 Patient Education Urology Erectile [...] these instructions at home: Medicines ? Take ihot-ugs-fzygyuh and prescription medicines only as told by [...] include cig (more content not included)... Normal [facility] Urology Office/Clinic Noteon 11-02-2023 Urology Office/Clinic Note Chief Complaint 1yr PSA & KUB HPI Staff 16 month f/u with PSA and KUB. (pt went to [place] for 3m) Dx: kidney stone and BPH [...] Information DOUG NATHAN, Lupe Phan, URL [address] [place] [address]- Additional Instructions: 7 mos w/ PSA Patient [...] (Nausea present) (more content not included)... Normal [facility] Comment on above: Result Comment: Elec tronically Signed By: Lupe CAMACHO MD\.br\Date and Time Signed: 11/02/23 13:20 EDT\.br\Electronically Co-Signed By: Adriana Crane\.br\Date and Time Co-Signed: 11/02/23 13:19 EDT Lab Report[facility] 10-30-2023 Lab Reports [id number] 0TIFF Normal [facility] RAD - MISCon 10-30-2023 RAD - MISC [id number] 0TIFF Normal [facility] No Panel Informationon 10-28 Prostate Specific Antigen Total 3.70 ng/mL <=4.00 [facility] US carotid doppler BIon 06-08 US carotid doppler BI [facility] [address] Ultrasound Report Signed Patient: Gerry Lay MR#: [id number] : 1950 Acct:[id number] Age/Sex: 72 / M ADM Date: 06/21/23 Loc: MR Room: Type: [facility] Attending Dr: Sukhdeep Crockett DO Ordering [...] RAD-DOC-04 Tech: Yengeorgie Gunner Transcribed By: ESE 06/22/23 152 Dictated By: Mayo Sheikh MD 06/22/23 1520 Signed By: 06/22/23 152 [facility] CRE 06-21-2023 Creatinine [Mass/Vol] 1.3 mg/dL Normal 0.6-1.3 [facility] Comment on above: Result Comment: ER/E SD physician is notified/shown all ISTAT results. Critical values may be confirmed by laboratory testing if deemed necessary by ER attending doctor. Performed By: #### I SCRE #### [address] ISTAT GFR 58.368 Normal [facility] Comment on above: Result Comment: PERF ORMED BY: [place] [address] PATHOLOGIST TYPEWRITER REPAIRER LOGAN SERNA M.D. Performed By: #### I SCRE #### [address] MR head/brain wo/w conon MR head/brain wo/w con [facility] [place] [address] [place] [address] MRI Report Signed Patient: Gerry Lay MR#: [id number] : 1950 Acct:[id number] Age/Sex: 72 / M ADM Date: 06/21/23 Loc: Room: Type: [facility] Attending Dr: Sukhdeep Crockett DO Copies to: [...] Eloy Barnard M.D.06/21/2023 5:08 PM Dictation Location: [place] [address] Transcribed By: [facility] 06/21/23 1708 Dictated By: Eloy Barnard II, MD 06/21/23 1646 Signed By: 06/21/23 1704 [facility] US CAROTID ART BILon 12-15-2 022 US [...] AIXA DURANT Date: 2022-06-21 23:19 Normal [facility] CBC AUTO DIFFon 06-21-2022 BASO # 0.1 103/ul Normal 0.0-0.1 [facility] Comment on above: Performed By: #### C BC ####[facility] [address] [place] [address]Dr. Giacomo Chambers Basophils/100 WBC (Bld) 0.9 % Normal 0.2-2.0 [facility] Comment on above: Performed By: #### C BC ####[facility] [address] [place], [place] [address]Dr. Giacomo Chambers EO # 0.2 103/ul Normal 0.0-0.7 [facility] Comment on above: Performed By: #### C BC ####[facility] [address] [place], [place] [address]Dr. Giacomo Chambers Eosinophils/100 WBC (Bld) 3.0 % Normal 0.9-7.0 [facility] Comment on above: Performed By: #### C BC ####[facility] [address] [place], [place] [address]Dr. Giacomo Chambers Erythrocyte distribution width (RBC) [Ratio] 12.7 % Normal 11.0-15.0 [facility] Comment on above: Performed By: #### C BC ####[facility] [address] [place], [place] [address]Dr. Giacomo Chambers Hematocrit (Bld) [Volume fraction] 48.4 % Normal 42.0-54.0 [facility] Comment on above: Performed By: #### C BC ####[facility] [address] [place], [place] [address]Dr. Giacomo Chambers Hemoglobin (Bld) [Mass/Vol] 16.1 g/dL Normal 14.0-18.0 [facility] Comment on above: Performed By: #### C BC ####[facility] [address] [place], [place] [address]Dr. Giacomo Chambers IG # 0.01 10e3/ul Normal 0.00-0.03 [facility] Comment on above: Performed By: #### C BC ####[facility] [address] [place], [place] [address]Dr. Giacomo Chambers IG % 0.2 % Normal 0.0-0.5 [facility] Comment on above: Performed By: #### C BC ####[facility] [address] [place] [id number]. Giacomo Reyes LYMPH # 2.1 103/ul Normal 1.2-3.8 [facility] Comment on above: Performed By: #### C BC ####[facility] [address] [place] [address]Dr. Giacomo Reyes Lymphocytes/100 WBC (Bld) 36.7 % Normal 20.5-60.0 [facility] Comment on above: Performed By: #### C BC ####[facility] [address] [place] [address]Dr. Zinastella Chambers MANUAL DIFF REQ NO Normal [facility] Comment on above: Performed By: #### C BC ####[facility] [address] [place] [address]Dr. Giacomo Reyes MCH (RBC) [Entitic mass] 30.6 pg Normal 25.9-34.0 [facility] Comment on above: Performed By: #### C BC ####[facility] [address] [place] [address]Dr. Giacomo Reyes MCHC (RBC) [Mass/Vol] 33.3 g/dL Normal 29.9-35.2 [facility] Comment on above: Performed By: #### C BC ####[facility] [address] [place] [address]Dr. Zinastella Chambers MCV (RBC) [Entitic vol] 91.8 fL Normal 80.0-94.0 [facility] Comment on above: Performed By: #### C BC ####[facility] [address] [place] [address]Dr. Giacomo Reyes MONO # 0.7 103/ul Normal 0.3-0.8 [facility] Comment on above: Performed By: #### C BC ####[facility] [address] [place] [address]Dr. Zinastella Chambers Monocytes/100 WBC (Bld) 12.1 % Critically high 1.7-12.0 [facility] Comment on above: Performed By: #### C BC ####[facility] [address] [place] [id number]. Giacomo Chambers NEUT # 2.6 103/ul Normal 1.4-6.5 [facility] Comment on above: Performed By: #### C BC ####[facility] [address] [place] [address]Dr. Giacomo Chambers Neutrophils/100 WBC (Bld) 47.1 % Normal 43.0-75.0 [facility] Comment on above: Performed By: #### C BC ####[facility] [address] [place] [address]Dr. Giacomo Chambers Platelet mean volume (Bld) [Entitic vol] 10.0 fL Normal 9.5-13.5 [facility] Comment on above: Performed By: #### C BC ####[facility] [address] [place] [address]Dr. Giacomo Chambers PLT 188 103/ul Normal 150-450 [facility] Comment on above: Performed By: #### C BC ####[facility] [address] [place], [place] [address]Dr. Giacomo Chambers RBC 5.27 106/ul Normal 4.70-6.10 [facility] Comment on above: Performed By: #### C BC ####[facility] [address] [place] [address]Dr. Giacomo Chambers WBC 5.6 103/ul Normal 4.0-11.0 [facility] Comment on above: Performed By: #### C BC ####[facility] [address] [place], [place] [address]Dr. Giacomo Chambers FREE T4on 06-21-2022 Free T4 [Mass/Vol] 1.19 ng/dL Normal 0.76-1.46 [facility] Comment on above: Performed By: #### F T4 ####[facility] [address] [place], [place] [address]Dr. Giacomo Chambers GLYCOHEMOGLOBIN A1Con 2021 ADA RECOMMENDATION SEE BELOW Normal [facility] Comment on above: Result Comment: ADA RECOMMENDED LIMIT 4.0 - 6.0 ADA THERAPEUTIC TARGET < 7.0 ACTION SUGGESTED > 7.0 Performed By: #### A 1C ####[facility] [address] [place], [place] [address]Dr. Giacomo Chambers Glucose [Mass/Vol] 134 mg/dL Normal [facility] Comment on above: Performed By: #### A 1C ####[facility] [address] [place], [place] [address]RpCamila Chambers HbA1c (Bld) [Mass fraction] 6.3 % Critically high 4.5-6.2 [facility] Comment on above: Performed By: #### A 1C ####[facility] [address] [place], [place] [address]NxCamila Chambers LIPID PROFILEon 06-21-2022 CHOL-HDL RATIO NORM SEE BELOW Normal [facility] Comment on above: Result Comment: 3.3 - 4.4 LOW RISK 4.4 - 7.1 AVERAGE RISK 7.1 - 11.0 MODERATE RISK >11.0 HIGH RISK Performed By: #### L IPID, CMP, TSH #### [facility] [address] [place] [address] [address] Giacomo Chambers Cholesterol [Mass/Vol] 162 mg/dL Normal <=200 [facility] Comment on above: Performed By: #### L IPID, CMP, TSH #### [facility] [address] [place] [address] [address] Giacomo Chambers Cholesterol in HDL [Mass/Vol] 55 mg/dL Normal 40-60 [facility] Comment on above: Performed By: #### L IPID, CMP, TSH #### [facility] [address] [place] [address] [address] Giacomo Chambers Cholesterol in LDL [Mass/Vol] 77.6 mg/dL Normal [facility] Comment on above: Performed By: #### L IPID, CMP, TSH #### [facility] [address] [place] [address] [address] Giacomo Chambers Cholesterol.total/Cho lesterol in HDL [Mass ratio] 2.9 {ratio} Normal [facility] Comment on above: Performed By: #### L IPID, CMP, TSH #### [facility] [address] [place] [address] [address] Giacomo Chambers HDL NORMAL > or = 60 mg/dl - LO W CARDIOVASCULAR RISK <40 mg/dl - HIGH CARDIOVASCULAR RISK Normal [facility] Comment on above: Performed By: #### L IPID, CMP, TSH #### [facility] [address] [place] [address] [address] Giacomo Chambers LDL CALC NORMAL SEE BELOW Normal [facility] Comment on above: Result Comment: <100 mg/dl OPTIMAL 100 - 129 mg/dl NEAR OR ABOVE OPTIMAL 130 - 159 mg/dl BORDERLINE HIGH 160 - 189 mg/dl HIGH >190 mg/dl VERY HIGH Performed By: #### L IPID CMP, TSH #### [facility] [address] [place] [address] [address] Giacomo Chambers Triglyceride [Mass/Vol] 147 mg/dL Normal <=150 [facility] Comment on above: Performed By: #### L IPID CMP, TSH #### [facility] [address] [place] [address] [address] Giacomo Chambers VLDL CALC 29.4 mg/dL Normal [facility] Comment on above: Performed By: #### L IPID CMP, TSH #### [facility] [address] [place] [address] [address] Giacomo Chambers MICROALBUMIN, RAND URon 06-08 mALB 1.6 mg/L Normal <=30.0 [facility] Comment on above: Performed By: #### M ALBR #### [facility] [address] [place] [address] [address] Giacomo Chambers PROF 14(COMP METB)on 022 Albumin [Mass/Vol] 4.0 g/dL Normal 3.4-5.0 [facility] Comment on above: Performed By: #### L IPID, CMP, TSH #### [facility] [address] [place] [address] [address] Giacomo Chambers Albumin/Globulin [Mass ratio] 1.1 {ratio} Normal [facility] Comment on above: Performed By: #### L IPID, CMP, TSH #### [facility] [address] [place] [address] [address] Giacomo Chambers ALP [Catalytic activity/Vol] 67 U/L Normal 46-116 [facility] Comment on above: Performed By: #### L IPID, CMP, TSH #### [facility] [address] [place] [address] [address] Giacomo Chambers ALT [Catalytic activity/Vol] 34 U/L Normal 16-63 [facility] Comment on above: Performed By: #### L IPID, CMP, TSH #### [facility] [address] [place] [address] [address] Giacomo Chambers Anion gap [Moles/Vol] 11.0 mmol/L Normal [facility] Comment on above: Performed By: #### L IPID, CMP, TSH #### [facility] [address] [place] [address] [address] Giacomo Chambers AST [Catalytic activity/Vol] 28 U/L Normal 15-37 [facility] Comment on above: Performed By: #### L IPID, CMP, TSH #### [facility] [address] [place] [address] [address] Giacomo Chambers Bilirubin [Mass/Vol] 0.9 mg/dL Normal 0.2-1.0 [facility] Comment on above: Performed By: #### L IPID, CMP, TSH #### [facility] [address] [place] [address] [address] Giacomo Chambers Calcium [Mass/Vol] 9.4 mg/dL Normal 8.5-10.1 [facility] Comment on above: Performed By: #### L IPID, CMP, TSH #### [facility] [address] [place] [address] [address] Giacomo Chambers Chloride [Moles/Vol] 102 mmol/L Normal 98-107 [facility] Comment on above: Performed By: #### L IPID, CMP, TSH #### [facility] [address] [place] [address] [address] Giacomo Chambers CO2 [Moles/Vol] 31.2 mmol/L Normal 21.0-32.0 [facility] Comment on above: Performed By: #### L IPID, CMP, TSH #### [facility] [address] [place] [address] [address] Giacomo Chambers Creatinine [Mass/Vol] 1.13 mg/dL Normal 0.70-1.30 [facility] Comment on above: Performed By: #### L IPID, CMP, TSH #### [facility] [address] [place] [address] [address] Giacomo Chambers EGFR-AF MOSOTHO >60 Normal >=60 [facility] Comment on above: Performed By: #### L IPID, CMP, TSH #### [facility] [address] [place] [address] [address] Giacomo Chambers EGFR-NON AF [place]HO >60 Normal >=60 [facility] Comment on above: Performed By: #### L IPID, CMP, TSH #### [facility] [address] [place] [address] [address] Giacomo Chambers Globulin (S) [Mass/Vol] 3.5 g/dL Normal [facility] Comment on above: Performed By: #### L IPID, CMP, TSH #### [facility] [address] [place] [address] [address] Giacomo Chambers Glucose [Mass/Vol] 121 mg/dL Critically high 74-106 [facility] Comment on above: Performed By: #### L IPID, CMP, TSH #### [facility] [address] [place] [address] [address] Giacomo Chambers Potassium [Moles/Vol] 4.2 mmol/L Normal 3.5-5.1 [facility] Comment on above: Performed By: #### L IPID, CMP, TSH #### [facility] [address] [place] [address] [address] Giacomo Chambers Protein [Mass/Vol] 7.5 g/dL Normal 6.4-8.2 [facility] Comment on above: Performed By: #### L IPID, CMP, TSH #### [facility] [address] [place] [address] [address] Giacomo Chambers Sodium [Moles/Vol] 140 mmol/L Normal 136-145 [facility] Comment on above: Performed By: #### L ELMER JESSICA, TSH #### [facility] [address] [place] [address] [address] Giacomo Chambers Urea nitrogen [Mass/Vol] 23.0 mg/dL Critically high 7.0-18.0 [facility] Comment on above: Performed By: #### L ELMER JESSICA, TSH #### [facility] [address] [place] [address] [address] Giacomo Chambers Urea nitrogen/Creatinine [Mass ratio] 20.4 mg/mg Normal [facility] Comment on above: Performed By: #### L EMLER JESSICA, TSH #### [facility] [address] [place] [address] Dr. Giacomo Chambers TSHon 06-21-2022 TSH 2.946 uIU/mL Normal 0.358-3.740 [facility] Comment on above: Performed By: #### L ELMER JESSICA, TSH #### [facility] [address] [place] [address] Dr. Giacomo Chambers XR KUB 1 VIEWon [...] AIXA DURANT Date: 2022-05-03 22:01 Normal [facility] CBC AUTO DIFFon 12-07-2021 BASO # 0.1 103/ul Normal 0.0-0.1 [facility] Comment on above: Performed By: #### C BC #### [facility] [address] [place] [address] Dr. Giacomo Chambers Basophils/100 WBC (Bld) 0.7 % Normal 0.2-2.0 [facility] Comment on above: Performed By: #### C BC #### [facility] [address] [place] [address] Dr. Giacomo Chambers EO # 0.2 103/ul Normal 0.0-0.7 [facility] Comment on above: Performed By: #### C BC #### [facility] [address] [place] [address] Dr. Giacomo Chambers Eosinophils/100 WBC (Bld) 2.7 % Normal 0.9-7.0 [facility] Comment on above: Performed By: #### C BC #### [facility] [address] [place] [address] Dr. Giacomo Chambers Erythrocyte distribution width (RBC) [Ratio] 12.4 % Normal 11.0-15.0 [facility] Comment on above: Performed By: #### C BC #### [facility] [address] [place] [address] Dr. Giacomo Chambers Hematocrit (Bld) [Volume fraction] 47.5 % Normal 42.0-54.0 [facility] Comment on above: Performed By: #### C BC #### [facility] [address] [place] [address] Dr. Giacomo Chambers Hemoglobin (Bld) [Mass/Vol] 15.5 g/dL Normal 14.0-18.0 [facility] Comment on above: Performed By: #### C BC #### [facility] [address] [place] [address] Dr. Giacomo Chambers IG # 0.02 10e3/ul Normal 0.00-0.03 [facility] Comment on above: Performed By: #### C BC #### [facility] [address] [place] [address] Dr. Giacomo Chambers IG % 0.3 % Normal 0.0-0.5 [facility] Comment on above: Performed By: #### C BC #### [facility] [address] [place] [address] Dr. Giacomo Chambers LYMPH # 2.1 103/ul Normal 1.2-3.8 [facility] Comment on above: Performed By: #### C BC #### [facility] [address] [place] [address] Dr. Giacomo Chambers Lymphocytes/100 WBC (Bld) 30.9 % Normal 20.5-60.0 [facility] Comment on above: Performed By: #### C BC #### [facility] [address] [place] [address] Dr. Giacomo Chambers MANUAL DIFF REQ NO Normal [facility] Comment on above: Performed By: #### C BC #### [facility] [address] [place] [address] Dr. Giacomo Chambers MCH (RBC) [Entitic mass] 31.6 pg Normal 25.9-34.0 [facility] Comment on above: Performed By: #### C BC #### [facility] [address] [place] [address] Dr. Giacomo Chambers MCHC (RBC) [Mass/Vol] 32.6 g/dL Normal 29.9-35.2 [facility] Comment on above: Performed By: #### C BC #### [facility] [address] [place] [address] Dr. Giacomo Chambers MCV (RBC) [Entitic vol] 96.7 fL Critically high 80.0-94.0 [facility] Comment on above: Performed By: #### C BC #### [facility] [address] [place] [address] Dr. Giacomo Chambers MONO # 0.7 103/ul Normal 0.3-0.8 [facility] Comment on above: Performed By: #### C BC #### [facility] [address] [place] [address] Dr. Giacomo Chambers Monocytes/100 WBC (Bld) 10.5 % Normal 1.7-12.0 [facility] Comment on above: Performed By: #### C BC #### [facility] [address] [place] [address] Dr. Giacomo Chambers NEUT # 3.7 103/ul Normal 1.4-6.5 [facility] Comment on above: Performed By: #### C BC #### [facility] [address] [place] [address] [address] Giacomo Chambers Neutrophils/100 WBC (Bld) 54.9 % Normal 43.0-75.0 [facility] Comment on above: Performed By: #### C BC #### [facility] [address] [place] [address] [address] Giacomo Chambers Platelet mean volume (Bld) [Entitic vol] 9.9 fL Normal 9.5-13.5 [facility] Comment on above: Performed By: #### C BC #### [facility] [address] [place] [address] Dr. Giacomo Chambers PLT 208 103/ul Normal 150-450 [facility] Comment on above: Performed By: #### C BC #### [facility] [address] [place] [address] Dr. Giacomo Chambers RBC 4.91 106/ul Normal 4.70-6.10 [facility] Comment on above: Performed By: #### C BC #### [facility] [address] [place] [address] Dr. Giacomo Chambers WBC 6.7 103/ul Normal 4.0-11.0 [facility] Comment on above: Performed By: #### C BC #### [facility] [address] [place] [address] Dr. Giacomo Chambers FREE T4on 12-07-2021 Free T4 [Mass/Vol] 1.12 ng/dL Normal 0.76-1.46 [facility] Comment on above: Performed By: #### F T4 #### [facility] [address] [place] [address] Dr. Giacomo Chambers PROF CHEM 8 (BAS METB)on Anion gap [Moles/Vol] 13.0 mmol/L Normal [facility] Comment on above: Performed By: #### B MP, TSH #### [facility] [address] [place] [address] Dr. Giacomo Chambers Calcium [Mass/Vol] 9.5 mg/dL Normal 8.5-10.1 [facility] Comment on above: Performed By: #### B MP, TSH #### [facility] [address] [place] [address] Dr. Giacomo Chambers Chloride [Moles/Vol] 104 mmol/L Normal 98-107 [facility] Comment on above: Performed By: #### B MP, TSH #### [facility] [facility] [address] [place] [address] Dr. Giacomo Chambers CO2 [Moles/Vol] 32.0 mmol/L Normal 21.0-32.0 [facility] Comment on above: Performed By: #### B MP, TSH #### [facility] [address] [place] [address] Dr. Giacomo Chambers Creatinine [Mass/Vol] 1.06 mg/dL Normal 0.70-1.30 [facility] Comment on above: Performed By: #### B SIXTO, TSH #### [facility] [address] [place] [address] Dr. Giacomo Chambers EGFR-AF MOSOTHO 60 mL/min/1.73m2 Normal >=60 [facility] Comment on above: Performed By: #### B SIXTO, TSH #### [facility] [address] [place] [address] Dr. Giacomo Chambers EGFR-NON AF MOSOTHO 60 mL/min/1.73m2 Normal >=60 [facility] Comment on above: Performed By: #### B SIXTO, TSH #### [facility] [address] [place] [address] Dr. Giacomo Chambers Glucose [Mass/Vol] 94 mg/dL Normal 74-106 [facility] Comment on above: Performed By: #### B MP, TSH #### [facility] [address] [place] [address] Dr. Giacomo Chambers Potassium [Moles/Vol] 4.0 mmol/L Normal 3.5-5.1 [facility] Comment on above: Performed By: #### B MP, TSH #### [facility] [address] [place] [address] Dr. Giacomo Chambers Sodium [Moles/Vol] 145 mmol/L Normal 136-145 [facility] Comment on above: Performed By: #### B MP, TSH #### [facility] [address] [place] [address] Dr. Giacomo Chambers Urea nitrogen [Mass/Vol] 17.0 mg/dL Normal 7.0-18.0 [facility] Comment on above: Performed By: #### B MP, TSH #### [facility] [address] [place] [address] Dr. Giacomo Chambers Urea nitrogen/Creatinine [Mass ratio] 16.0 mg/mg Normal [facility] Comment on above: Performed By: #### B MP, TSH #### [facility] [address] [place] [address] Dr. Giacomo Chambers TSHon 12-07-2021 TSH 4.398 uIU/mL Critically high 0.358-3.740 [facility] Comment on above: Performed By: #### B MP, TSH #### [facility] [address] [place] [address] Dr. Giacomo Chambers TSH RANGE SEE BELOW Normal [facility] Comment on above: Result Comment: <0.3 4 UIU/ml HYPERTHYROID 0.34-5.60 UIU/ml EUTHYROID >5.60 UIU/ml HYPOTHYROID Performed By: #### B MP, TSH #### [facility] [address] [place] [address] Dr. Giacomo Chambers [facility]-06 SARS-CoV-2 (COVID-19) RNA RADHA+probe Ql (Unsp spec) Detected Critically abnormal NOT DETECTED [facility] Comment on above: Result Comment: This test is not yet approved or cleared by the [place] FDA. When there are no FDA-approved or cleared tests available, and other criteria are met, FDA can make tests available under an emergency access mechanism called an Emergency Use Authorization (EUA). The EUA for this test is supported by the [place] of Health and Human Service's (HHS's) declaration [...] be used). Performed By: #### C VDTBH ####[facility] [address] [place] [address]Dr. Gicaomo Chambers CALCULI, URINARYon 2 2,8 Dihydroxyadenine Normal [facility] Comment on above: Performed By: #### C ALCULI ####[facility] [address] [place], [place] [address]Dr. Giacomo Chambers Ammonium Acid Urate Normal [facility] Comment on above: Performed By: #### C ALCULI ####[facility] [address] [place], [place] [address]Dr. Giacomo Chambers Bilirubin Ql (U) Normal [facility] Comment on above: Performed By: #### C ALCULI ####[facility] [address] [place], [place] [address]Dr. Giacomo Chambers Ca Oxalate Dihydrate Normal [facility] Comment on above: Performed By: #### C ALCULI ####[facility] [address] [place], [place] [address]Dr. Giacomo Chambers CaHPO4 (Brushite) Normal [facility] Comment on above: Performed By: #### C ALCULI ####[facility] [address] [place], [place] [address]Dr. Giacomo Chambers Calcium Bilirubinate Normal [facility] Comment on above: Performed By: #### C ALCULI ####[facility] [address] [place], [place] [address]Dr. Giacomo Chambers Calcium Carbonate Normal [facility] Comment on above: Performed By: #### C ALCULI ####[facility] [address] [place] [address]Dr. Giacomo Chambers Calcium Oxalate Monohydrate 100 % Normal [facility] Comment on above: Performed By: #### C ALCULI ####[facility] [address] [place] [address]Dr. Giacomo Chambers Calcium Palmitate Normal [facility] Comment on above: Performed By: #### C ALCULI ####[facility] [address] [place], [place] [address]Dr. Giacomo Chambers Calcium Phosphate Normal [facility] Comment on above: Performed By: #### C ALCULI ####[facility] [address] [place], [place] [address]Dr. Giacomo Chambers Calcium Stearate Normal [facility] Comment on above: Performed By: #### C ALCULI ####[facility] [address] [place], [place] [address]Dr. Giacomo Chambers Carbonate Apatite Normal [facility] Comment on above: Performed By: #### C ALCULI ####[facility] [address] [place], [place] [address]Dr. Giacomo Chambers Cellular Material Normal [facility] Comment on above: Performed By: #### C ALCULI ####[facility] [address] [place], [place] [address]Dr. Giacomo Chambers Cholesterol Normal [facility] Comment on above: Performed By: #### C ALCULI ####[facility] [address] [place], [place] [address]Dr. Giacomo Chambers Color (U) Brown Normal [facility] Comment on above: Performed By: #### C ALCULI ####[facility] [address] [place], [place] [address]Dr. Giacomo Chambers Comment [facility] Comment on above: Performed By: #### C ALCULI ####[facility] [address] [place], [place] [address]Dr. Giacomo Chambers Comment Comment Normal [facility] Comment on above: Result Comment: Calc ulus received in liquid. Wet calculi must be dried before analysis, which delays reporting of results. Leaving calculi in liquid (such as water, saline, blood, urine) may lead to changes in composition. Performed By: #### C ALCULI ####[facility] [address] [place], [place] [address]Dr. Giacomo Chmabers Comment: Comment Normal [facility] Comment on above: Result Comment: Stanislav kenny questions regarding Calculi Analysis contact [facility] at: [phone]. Performed By: #### C ALCULI ####[facility] [address] [place], [place] [address]Dr. Giacomo Chambers Composition Comment Normal [facility] Comment on above: Result Comment: Perc entage (Represents the % composition) Performed By: #### C ALCULI ####[facility] [address] [place], [place] [address]Dr. Giacomo Chambers Cystine Normal [facility] Comment on above: Performed By: #### C ALCULI ####[facility] [address] [place], [place] [address]Dr. Giacomo Chambers Disclaimer: Comment Normal [facility] Comment on above: Result Comment: This test was developed and its performance characteristics determined by [facility]. It has not been cleared or approved by the Food and Drug Administration. Performed By: #### C ALCULI ####[facility] D[address]qu[address] [place], [place] [address]Dr. Giacomo Chambers Dried Blood Normal [facility] Comment on above: Performed By: #### C ALCULI ####[facility] [address] [place], [place] [address]Dr. Giacomo Chambers Drug or Metabolite Normal [facility] Comment on above: Performed By: #### C ALCULI ####[facility] Pyeqdwxmat[address] [place], [place] [address]Dr. Giacomo Chambers Hydroxyapatite Normal [facility] Comment on above: Performed By: #### C ALCULI ####[facility] [address] [place] [address]Dr. Giacomo Chambers Mg NH4 PO4 (Struvite) Normal [facility] Comment on above: Performed By: #### C ALCULI ####[facility] [address] [place], [place] [address]Dr. Giacomo Chambers MgHPO4 (Newberyite) Normal [facility] Comment on above: Performed By: #### C ALCULI ####[facility] [address] [place] [address]Dr. Giacomo Chambers Other component(s) Normal [facility] Comment on above: Performed By: #### C ALCULI ####[facility] [address] [place] [address]Dr. Giacomo Chambers PDF . Normal [facility] Comment on above: Performed By: #### C ALCULI ####[facility] [address] [place], [place] [address]Dr. Giacomo Chambers Photo Comment [facility] Comment on above: Result Comment: Phot ograph will follow under a separate cover Performed By: #### C ALCULI ####[facility] [address] [place], [place] [address]Dr. Giacomo Chambers Please note: Comment [facility] Comment on above: Result Comment: Calc derek report will follow via computer, mail or manager trading delivery. Performed By: #### C ALCULI ####[facility] [address] [place], [place] [address]Dr. Giacomo Chambers Size 4x3 [facility] Comment on above: Result Comment: Mult iple pieces received. Dimensions of the largest piece reported. Performed By: #### C ALCULI ####[facility] [address] [place], [place] [address]Dr. Giacomo Chambers Sodium Acid Urate Normal [facility] Comment on above: Performed By: #### C ALCULI ####[facility] [address] [place], [place] [address]Dr. Giacomo Chambers Source Comment [facility] Comment on above: Result Comment: Not provided Performed By: #### C ALCULI ####[facility] [address] [place], [place] [address]Dr. Giacomo Chambers Triamterene [facility] Comment on above: Performed By: #### C ALCULI ####[facility] [address] [place], [place] [address]Dr. Giacomo Chambers Uric Acid [facility] Comment on above: Performed By: #### C ALCULI ####[facility] [address] [place] [address]Dr. Giacomo Chambers Uric Acid Dihydrate Normal [facility] Comment on above: Performed By: #### C ALCULI ####[facility] [address] [place] [address]Dr. Giacomo Chambers Weight 82 mg Normal [facility] Comment on above: Performed By: #### C ALCULI ####[facility] [address] [place] [address]Dr. Giacomo Chambers Xanthine Normal [facility] Comment on above: Performed By: #### C ALCULI ####[facility] [address] [place] [address]Dr. Giacomo Chambers PROF CHEM 8 (BAS METB)on Anion gap [Moles/Vol] 13.0 mmol/L Normal [facility] Comment on above: Performed By: #### B MP ####[facility] [address] [place], [place] [address]Dr. Giacomo Chambers Calcium [Mass/Vol] 8.7 mg/dL Normal 8.5-10.1 [facility] Comment on above: Performed By: #### B MP ####[facility] [address] [place], [place] [address]Dr. Giacomo Chambers Chloride [Moles/Vol] 101 mmol/L Normal 98-107 [facility] Comment on above: Performed By: #### B MP ####[facility] [address] [place] [address]Dr. Giacomo Chambers CO2 [Moles/Vol] 28.9 mmol/L Normal 21.0-32.0 [facility] Comment on above: Performed By: #### B MP ####[facility] [address] [place], [place] [address]Dr. Giacomo Chambers Creatinine [Mass/Vol] 1.04 mg/dL Normal 0.70-1.30 [facility] Comment on above: Performed By: #### B MP ####[facility] [address] [place], [place] [address]Dr. Giacomo Chambers EGFR-AF MOSOTHO >60 Normal >=60 [facility] Comment on above: Performed By: #### B MP ####[facility] [address] [place] [id number]. Giacomo Chambers EGFR-NON AF MOSOTHO >60 Normal >=60 [facility] Comment on above: Performed By: #### B MP ####[facility] [address] [place] [id number]. Giacomo Chambers Glucose [Mass/Vol] 111 mg/dL Critically high 74-106 [facility] Comment on above: Performed By: #### B MP ####[facility] [address] [place] [id number]. Giacomo Chambers Potassium [Moles/Vol] 3.9 mmol/L Normal 3.5-5.1 [facility] Comment on above: Performed By: #### B MP ####[facility] [address] [place] [address]Dr. Giacomo Chambers Sodium [Moles/Vol] 139 mmol/L Normal 136-145 [facility] Comment on above: Performed By: #### B MP ####[facility] [address] [place] [id number]. Giacomo Chambers Urea nitrogen [Mass/Vol] 18.0 mg/dL Normal 7.0-18.0 [facility] Comment on above: Performed By: #### B MP ####[facility] [address] [place] [address]Dr. Giacomo Chambers Urea nitrogen/Creatinine [Mass ratio] 17.3 mg/mg Normal [facility] Comment on above: Performed By: #### B MP ####[facility] [address] [place] [id number]. Giacomo Chambers XR KUB 1 VIEWon 11-11-2021 [...] by: RADHA PATEL Date: 2021-11-11 16:26 Normal [facility] Vital Signs Date Time Vital Sign Value Performing Clinician Facility 11-17-2024 10:29-0400 Body mass index (BMI) [Ratio] 35.53 kg/m2 Christzoey Leonard DO Work Phone: [facility] 11-17-2024 10:29-0400 Body [facility] 113.94 [facility] 11-17-2024 10:29-0400 Diastolic blood pressure 84 mm[Hg] [facility] 11-17-2024 10:29-0400 Heart rate 69 /min [facility] 11-17-2024 10:29-0400 SaO2% (BldA) [Mass fraction] 98 % [facility] 11-17-2024 10:29-0400 Systolic blood pressure 146 mm[Hg] [facility] 11-04-2024 09:50-0400 Body height 177.8 cm [facility] 11-04-2024 09:50-0400 Body mass index (BMI) [Ratio] 35.7 kg/m2 [facility] 11-04-2024 09:50-0400 Body weight 112.94 kg [facility] 11-04-2024 09:50-0400 Diastolic blood pressure 83 mm[Hg] [facility] 11-04-2024 09:50-0400 Heart rate 71 /min [facility] 11-04-2024 09:50-0400 Systolic blood pressure 133 mm[Hg] [facility] 10-13-2024 10:14-0400 Body height 179.1 cm Bunny Hewitt DO Work Phone: [facility] 10-13-2024 10:14-0400 Body mass index (BMI) [Ratio] 34.66 kg/m2 Bunny Pocos DO Work Phone: [facility] 10-13-2024 10:14-0400 Body weight 111.13 kg Bunny Pocos DO Work Phone: [facility] 07-07-2024 10:07-0500 Body height 179.1 cm Bunny Pocos DO Work Phone: [facility] 07-07-2024 10:07-0500 Body mass index (BMI) [Ratio] 34.94 kg/m2 Bunny Pocos DO Work Phone: [facility] 07-07-2024 10:07-0500 Body weight 112.04 kg Bunny Pocos DO Work Phone: [facility] 06-16-2024 10:12-0500 Body height 179.1 cm Bunny Pocos DO Work Phone: [facility] 06-16-2024 10:12-0500 Body mass index (BMI) [Ratio] 34.94 kg/m2 Bunny Pocos DO Work Phone: [facility] 06-16-2024 10:12-0500 Body weight 112.04 kg Bunny Pocos DO Work Phone: [facility] 05-26-2024 09:11-0500 Blood Pressure Location Lupe CAMACHO [facility] 05-26-2024 09:11-0500 Body temperature 98.6 [degF] Lupe CAMACHO [facility] 05-26-2024 09:11-0500 Diastolic blood pressure 86 mm[Hg] Lupe CAMACHO [facility] 05-26-2024 09:11-0500 Heart rate 81 /min Lupe CAMACHO [facility] 05-26-2024 09:11-0500 Respiratory rate 18 /min Lupe CAMACHO [facility] 05-26-2024 09:11-0500 Systolic blood pressure 132 mm[Hg] Lupe CAMACHO [facility] 04-16-2024 14:36-0400 Body height 179.1 cm Bunny Pocos DO Work Phone: [facility] 04-16-2024 14:36-0400 Body mass index (BMI) [Ratio] 34.94 kg/m2 Bunny Pocos DO Work Phone: [facility] 04-16-2024 14:36-0400 Body weight 112.04 kg Bunny Pocos DO Work Phone: [facility] 03-18-2024 14:35-0400 Heart rate 78 /min Bunny Pocos [facility] 03-18-2024 14:35-0400 SaO2% (BldA) [Mass fraction] 93 % Bunny Pocos [facility] 03-18-2024 14:34-0400 Diastolic blood pressure 73 mm[Hg] Bunny Pocos [facility] 03-18-2024 14:34-0400 Mean blood pressure 91 mm[Hg] Bunny Pocos [facility] 03-18-2024 14:34-0400 Systolic blood pressure 128 mm[Hg] Bunny Pocos [facility] 03-18-2024 12:59-0400 Heart rate 70 /min Bunny Pocos [facility] 03-18-2024 12:59-0400 SaO2% (BldA) [Mass fraction] 96 % Bunny Pocos [facility] 03-18-2024 12:59-0400 Respiratory rate 18 /min Bunny Pocos [facility] 03-18-2024 12:58-0400 Diastolic blood pressure 75 mm[Hg] Bunny Pocos [facility] 03-18-2024 12:58-0400 Mean blood pressure 95 mm[Hg] Bunny Pocos [facility] 03-18-2024 12:58-0400 Systolic blood pressure 134 mm[Hg] Bunny Pocos [facility] 03-18-2024 11:43-0400 Heart rate 70 /min Bunny Pocos [facility] 03-18-2024 11:43-0400 SaO2% (BldA) [Mass fraction] 94 % Bunny Pocos [facility] 03-18-2024 11:41-0400 Respiratory rate 16 /min Bunny Pocos [facility] 03-18-2024 11:39-0400 Blood Pressure Location Bunny Pocos [facility] 03-18-2024 11:39-0400 Diastolic blood pressure 81 mm[Hg] Bunny Pocos [facility] 03-18-2024 11:39-0400 Mean blood pressure 97 mm[Hg] Bunny Pocos [facility] 03-18-2024 11:39-0400 Systolic blood pressure 129 mm[Hg] Bunny Pocos [facility] 03-18-2024 11:30-0400 Body temperature 96.98 [degF] Bunny Pocos [facility] 03-18-2024 11:30-0400 Respiratory rate 18 /min Bunny Pocos [facility] 03-18-2024 11:15-0400 Respiratory rate 18 /min Bunny Pocos [facility] 03-18-2024 10:33-0400 Body temperature 97.16 [degF] Bunny Pocos [facility] 03-18-2024 10:30-0400 Respiratory rate 17 /min Bunny Pocos [facility] 03-18-2024 10:20-0400 Body temperature 96.8 [degF] Bunny Pocos [facility] 03-18-2024 10:15-0400 Body temperature 96.98 [degF] Bunny Pocos [facility] 03-18-2024 10:10-0400 Body temperature 96.8 [degF] Bunny Pocos [facility] 03-18-2024 06:21-0400 Blood Pressure Location Bunny Pocos [facility] 03-18-2024 06:19-0400 Blood Pressure Location Bunny Pocos [facility] 02-18-2024 09:41-0400 Diastolic blood pressure 90 mm[Hg] Bunny Pocos [facility] 02-18-2024 09:41-0400 Heart rate 78 /min Bunny Pocos [facility] 02-18-2024 09:41-0400 Mean blood pressure 113 mm[Hg] Bunny Pocos [facility] 02-18-2024 09:41-0400 Systolic blood pressure 157 mm[Hg] Bunny Pocos [facility] 02-18-2024 09:40-0400 Heart rate 81 /min Bunny Pocos [facility] 02-18-2024 09:40-0400 SaO2% (BldA) [Mass fraction] 97 % Bunny Pocos [facility] 02-18-2024 09:39-0400 Diastolic blood pressure 82 mm[Hg] Bunny Hewitt [facility] 02-18-2024 09:39-0400 Mean blood pressure 103 mm[Hg] Bunny Hewitt [facility] 02-18-2024 09:39-0400 Systolic blood pressure 147 mm[Hg] Bunny Hewitt [facility] 11-28-2023 10:03-0400 Body height 177.8 cm [facility] 11-28-2023 10:03-0400 Body mass index (BMI) [Ratio] 34.7 kg/m2 [facility] 11-28-2023 10:03-0400 Body weight 109.76 kg [facility] 11-28-2023 10:03-0400 Diastolic blood pressure 77 mm[Hg] [facility] 11-28-2023 10:03-0400 Heart rate 71 /min [facility] 11-28-2023 10:03-0400 Systolic blood pressure 127 mm[Hg] [facility] 11-02-2023 11:55-0400 Blood Pressure Location Lupe CAMACHO [facility] 11-02-2023 11:55-0400 Diastolic blood pressure 89 mm[Hg] Lupe CAMACHO [facility] 11-02-2023 11:55-0400 Heart rate 80 /min Lupe CAMACHO [facility] 11-02-2023 11:55-0400 Respiratory rate 16 /min Lupe CAMACHO [facility] 11-02-2023 11:55-0400 Systolic blood pressure 132 mm[Hg] Lupe CAMACHO [facility] 06-21-2023 11:33-0500 Body height 177.8 cm MD Sergio Connell Work Phone: [facility] 06-21-2023 11:33-0500 Body weight 106.59 kg MD Sergio Connell Work Phone: [facility] 03-15-2023 13:30-0400 Body height 177.8 cm Sergio Connell Other [facility] [employer] Other 03-15-2023 13:30-0400 Body mass index (BMI) [Ratio] 34.15 kg/m2 Sergio Connell Other [employer] Other 03-15-2023 13:30-0400 Body weight 107.96 kg Sergio Connell Other [employer] Other 03-15-2023 13:30-0400 Diastolic blood pressure 70 mm[Hg] Sergio Connell Other [employer] Other 03-15-2023 13:30-0400 Respiratory rate 12 /min Sergio Connell Other [employer] Other 03-15-2023 13:30-0400 Systolic blood pressure 132 mm[Hg] Sergio Connell Other [employer] Other 01-01-2023 08:45-0400 Body height 177.8 cm Sergio Connell Other [employer] Other 01-01-2023 08:45-0400 Body mass index (BMI) [Ratio] 34 kg/m2 Sergio Connell Other [employer] Other 01-01-2023 08:45-0400 Body weight 107.5 kg Sergio Connell Other [employer] Other 01-01-2023 08:45-0400 Diastolic blood pressure 75 mm[Hg] Sergio Connell Other [employer] [facility] [employer] Other 01-01-2023 08:45-0400 SaO2% (BldA) [Mass fraction] 97 % Sergio Connell Other [employer] Other 01-01-2023 08:45-0400 Systolic blood pressure 132 mm[Hg] Sergio Connell Other [employer] Other 05-29-2022 09:29-0500 Blood Pressure Location Lupe CAMACHO [facility] 05-29-2022 09:29-0500 Diastolic blood pressure 76 mm[Hg] Lupe CAMACHO [facility] 05-29-2022 09:29-0500 Heart rate 70 /min Lupe CAMACHO [facility] 05-29-2022 09:29-0500 Respiratory rate 16 /min Lupe CAMACHO [facility] 05-29-2022 09:29-0500 Systolic blood pressure 127 mm[Hg] Lupe CAMACHO [facility] 11-14-2021 10:33-0400 Blood Pressure Location Lupe CAMACHO [facility] 11-14-2021 10:33-0400 Diastolic blood pressure 83 mm[Hg] Lupe CAMACHO [facility] 11-14-2021 10:33-0400 Heart rate 71 /min [facility] 11-14-2021 10:33-0400 Systolic blood pressure 160 mm[Hg] [facility] En[facility]ters Encounter Date Encounter Type Care Provider Facility Start: 12-03-2024 End: 12-03-2024 ambulatory Lupe CAMACHO [facility] Start: 12-03-2024 End: 12-03-2024 Patient encounter procedure Lupe CAMACHO [facility] Start: 11-17-2024 End: 11-17-2024 Office outpatient new 45 minutes Carmen Valle DO Work Phone: KRISH[facility] JACKMAN Comment on above: Cognitive dysfunctio n (Primary Dx); Tremor; Long-term use of high-risk medication Start: 11-17-2024 End: 11-17-2024 ambulatory CARMEN VALLE Not Available Start: 11-04-2024 End: 11-04-[address] [facility] Work Phone: Start: 11-04-2024 End: 11-04-2024 Patient encounter procedure [facility] Work Phone: Start: 10-13-2024 End: 10-13-2024 Patient encounter procedure Jarrett Pocos DO Work Phone: [facility] Comment on above: S/P total right hip arthroplasty (Primary Dx) Start: 10-13-2024 End: 10-13-2024 ambulatory JARRETT POCOS Not Available Start: 10-13-2024 End: 10-13-2024 ambulatory JARRETT POCOS Not Available Start: 07-07-2024 End: 07-07-2024 Bamboo flowsheet Jarrett Pocos DO Work Phone: [facility] Start: 07-07-2024 End: 07-07-2024 Bamboo flowsheet Bunny Puentes Pocos DO Work Phone: [facility] Start: 07-07-2024 End: 07-07-2024 ambulatory BUNNY Puentes POCOS Not Available Start: 07-07-2024 End: 07-07-2024 Patient encounter procedure Bunny Puentes Pocos DO Work Phone: [facility] Comment on above: S/P carpal tunnel re lease (Primary Dx) Start: 06-25-2024 End: 06-25-2024 Orders Only Bunny Puentes Pocos DO Work Phone: [facility] Comment on above: Carpal tunnel syndro me on right (Primary Dx) Start: 06-16-2024 Patient encounter procedure [facility] Start: 06-16-2024 End: 06-16-2024 Clinisync Result Encounter Bunny Puentes Pocos DO Work Phone: [facility] Unsolicited Start: 06-16-2024 End: 06-16-2024 Clinisync Result Encounter Bunny Puentes Pocos DO Work Phone: [facility] Unsolicited Start: 06-16-2024 End: 06-16-2024 Patient encounter procedure Bunny Puentes Pocos DO Work Phone: [facility] Comment on above: S/P total right hip arthroplasty (Primary Dx); Preoperative testing; Carpal tunnel syndrome on right Start: 06-16-2024 End: 06-16-2024 Patient encounter status Bunny Puentes Pocos DO Work Phone: [facility] Start: 06-16-2024 End: 06-16-2024 ambulatory BUNNY Puentes POCOS Not Available Start: 06-16-2024 End: 06-16-2024 ambulatory BUNNY Puentes POCOS Not Available Start: 05-26-2024 End: 05-26-2024 ambulatory Lupe CAMACHO Facility:[facility] Start: 05-26-2024 End: 05-26-2024 Patient encounter procedure Lupe CAMACHO [facility] Start: 04-16-2024 End: 04-16-2024 ambulatory JARRETT POCOS Not Available Start: 04-16-2024 End: 04-16-2024 Patient encounter procedure Bunny Puentes Pocos DO Work Phone: [facility] Comment on above: S/P total right hip arthroplasty (Primary Dx) Start: 04-16-2024 End: 04-16-2024 ambulatory JARRETT POCOS Not Available Start: 03-18-2024 End: 03-18-2024 Admission to same day surgery center Bunny Puentes Pocos [facility] Start: 03-18-2024 End: 03-18-2024 ambulatory Bunny Puentes Pocos [facility] Start: 03-13-2024 End: 03-13-2024 Bamboo flowsheet Aixa Zhou MD Work Phone: [facility] Start: 03-13-2024 End: 03-13-2024 Bamboo flowsheet Aixa Zhou MD Work Phone: [facility] Start: 03-13-2024 End: 03-13-2024 Patient encounter procedure Aixa Zhou MD Work Phone: [facility] Comment on above: Carpal tunnel syndro me of right wrist (Primary Dx) Start: 03-13-2024 End: 03-13-2024 ambulatory AIXA ZHOU Not Available Start: 02-18-2024 End: 02-18-2024 ambulatory Jarrett Pocos [facility] Start: 02-18-2024 End: 02-18-2024 Patient encounter procedure Bunny Puentes Pocos [facility] Start: 02-18-2024 End: 02-18-2024 ambulatory JARRETT POCOS Not Available Start: 02-11-2024 End: 02-11-2024 ambulatory JARRETT POCOS Not Available Start: 01-07-2024 End: 01-07-2024 ambulatory JARRETT POCOS Not Available Start: 11-28-2023 End: 11-28-[address] [facility] Work Phone: Start: 11-28-2023 End: 11-28-2023 Patient encounter procedure [facility] Physician [facility] Work Phone: Start: 11-20-2023 Non-patient / Non-visit [facility] Physician [facility] Work Phone: Start: 11-02-2023 End: 11-02-2023 ambulatory Lupe CAMACHO Facility:[facility] Start: 11-02-2023 End: 11-02-2023 Patient encounter procedure Lupe CAMACHO [facility] Start: 10-29-2023 Non-patient / Non-visit [facility] Physician [facility] Work Phone: Start: 06-21-2023 End: 06-21-2023 ambulatory Sukhdeep Betancourtjohn Facility:[facility] Start: 06-21-2023 End: 06-21-2023 ambulatory MD Sergio Connell Work Phone: [facility] Work Phone: Start: 06-21-2023 End: 06-21-2023 Patient encounter procedure MD Sergio Connell Work Phone: [facility] [place] Work Phone: Start: 06-04-2023 ambulatory Lupe CAMACHO Facili ty:[facility] [place] Start: 05-07-2023 End: 05-07-2023 ambulatory Sergio Connell Other [employer] Other Start: 05-07-2023 Telephone encounter Sergio Connell [facility] Start: 05-02-2023 End: 05-02-2023 ambulatory Sergio Connell Other [employer] Other Start: 05-02-2023 Telephone encounter Sergio Connell [facility] Start: 04-10-2023 End: 04-10-2023 ambulatory Sergio Ko Other [employer] Other Start: 04-10-2023 Telephone encounter Sergio Ko [facility] Start: 03-26-2023 End: 03-26-2023 ambulatory Sergio Connell Other [employer] Other Start: 03-26-2023 Telephone encounter Sergio Ko [facility] Start: 03-20-2023 End: 03-20-2023 ambulatory Sergio Connell Other [employer] Other Start: 03-20-2023 Telephone encounter Sergio Ko [facility] Start: 03-15-2023 End: 03-15-2023 ambulatory Sergio Ko Other [employer] Other Start: 03-15-2023 Office outpatient vi sit 15 minutes Sergio Ko [facility] Start: 02-22-2023 End: 02-22-2023 ambulatory Sergio Ko Other [employer] Other Start: 02-22-2023 Telephone encounter Sergio Connell [facility] Start: 01-11-2023 End: 01-11-2023 ambulatory Sergio Connell Other [employer] Other Start: 01-11-2023 Telephone encounter Sergio Ko [facility] Start: 01-03-2023 End: 01-03-2023 ambulatory Sergio Connell Other [employer] Other Start: 01-03-2023 Telephone encounter Sergio Connell [facility] Start: 01-01-2023 End: 01-01-2023 ambulatory Sergio Connell Other [employer] Other Start: 01-01-2023 Office outpatient vi sit 15 minutes Sergio Ko [facility] Start: 06-21-2022 End: 06-22-[address] SERGIO CONNELL Facility:[facility] Start: 06-14-2022 Adult health examination Sergio Connell Other [employer] Other Start: 05-29-2022 End: 05-29-2022 Patient encounter procedure Lupe CAMACHO [facility] Start: 05-03-2022 End: 05-04-[address] LUPE CAMACHO Facility:[facility] Start: 12-07-2021 End: [address] SERGIO CONNELL Facility:[facility] Start: 11-23-2021 End: 11-23-[address] SERGIO CONNELL Facility:[facility] Start: 11-14-2021 End: 11-15-[address] LUPE CAMACHO Facility:[facility] Start: 11-14-2021 End: 11-14-2021 Patient encounter procedure Lupe CAMACHO [facility] Start: 11-11-2021 End: 11-12-[address] LUPE CAMACHO Facility:[facility] Procedures Date Procedure Procedure Detail Performing Clinician Start: 10-13-2024 Radex hip unilateral with pelvis 2-3 views Bunny Hewitt DO Work Phone: Start: 06-16-2024 ALL CBC WITH AUTO DIFF Bunny Puentes Pocos DO Work Phone: Start: 06-16-2024 Radex hip unilateral with pelvis 2-3 views Bunny Puentes Pocos DO Work Phone: Start: 04-16-2024 Radex hip unilateral with pelvis 2-3 views Bunny Puentes Pocos DO Work Phone: Start: 03-18-2024 Total replacement of hip Bunny Hewitt Start: 03-13-2024 End: 03-13-2024 Needle emg ea extremty w/paraspinl area complete Aixa Zhou MD Work Phone: Start: 06-21-2023 MRI of head MD Sergio Connell Work Phone: Start: 12-28-2022 Colonoscopy Aixa gonzales MD Work Phone: Start: 05-03-[address] SERGIO CONNELL Comment on above: Performed By: #### P SAD ####[place] [id number] [place] [address]DrCamila Chambers Start: 06-16-2021 Extracorporeal shock wave lithotripsy of calculus of kidney Lupe CAMACHO Start: 11-29-2016 Right knee arthrosco py with partial medial meniscectomy in addition to chondroplasty, patellofemoral articulation Lupe CAMACHO Start: 02-15-2016 Left hip arthroplasty P arielle CAMACHO Start: 11-06-2012 Extracorporeal shock wave lithotripsy of calculus of kidney Lupemilka CAMACHO Start: 07-24-2010 Extracorporeal shock wave lithotripsy of calculus of kidney Lupemilka CAMACHO Start: 01-27-2008 Cystoscopic removal of ureteric stent Lupe CAMACHO Start: 01-20-2008 Cystoscope, device (physical object) Lupe CAMACHO Start: 02-14-2007 Cystoscope, device (physical object) Lupe CAMACHO Start: 01-24-2007 Renal lithotripsy [place] CAMACHO Arthroscope, device (physical object) Lupe CAMACHO Comment on above: B/l knees, left shou lder Arthroscope, device (physical object) Bunny Hewitt Cholecystectomy Lupe GARCIA Excision of basal ce ll carcinoma Lupe CAMACHO History of decompres leigha of median nerve S/P carpal tunnel release Bunny Hewitt DO Work Phone: Structure of rotator cuff of left shoulder Bunny Bridgette Tonsillectomy and adenoidectomy Lupe CAMACHO Plan of Treatment Date Care Activity Detail Author Start: 12-28-2032 Screening for malign ant neoplasm of colon [facility] Start: 03-18-2025 End: 03-18-2025 Patient encounter procedure 03/18/2025 9:15 AM EDT Office Visit [facility] [address] [place] [address] Bunny Hewitt, DO [address] [place] [address] [facility] Start: 12-22-2024 End: 12-22-2024 Patient encounter procedure 12/22/2024 9:30 AM EDT Office Visit [facility] JACKMAN [address] [address] [place] [address] Сергей Barry, PhD [address] [place] [address] [facility]ACK[facility] Start: 12-15-2024 ambulatory Ambulatory Facility:[facility] Start: 11-17-2024 End: 11-17-2025 Cobalamin (Vitamin B12) [Mass/volume] in Serum or Plasma Vitamin B12 Lab Routine Long-term use of high-risk medication Expected: 11/17/2024 (Approximate), Expires: 11/17/[address] [facility] Comment on above: Expected: 11/17/2024 (Approximate), Expires: 11/17/2025 Start: 11-17-2024 End: 11-17-2025 MR Brain WO and W contrast IV MR brain w and wo contrast routine Imaging Routine Cognitive dysfunction Tremor Expected: 11/17/2024, Expires: 11/17/[address] [facility] Work Phone: Comment on above: Expected: 11/17/2024 , Expires: 11/17/2025 Start: 11-17-2024 End: 11-17-2024 Patient encounter procedure 11/17/2024 10:30 AM EDT Office Visit KRISH[facility] JACKMAN [address] [address] [place] [phone] Carmen Valle, DO [address] [place] [id number] KRISH[facility] JACKMAN Start: 10-13-2024 End: 10-13-2024 Patient encounter procedure 10/13/2024 10:00 AM EDT Office Visit [facility] [address] [place] [phone] Bunny Hewitt DO [address] [place] [address] [facility] Start: 08-04-2024 End: 08-04-2024 Patient encounter procedure 08/04/2024 12:00 PM EST Office Visit [facility] [address] [place] [address], [place] [phone] Carmen Valle, DO [address] [place] [address], [place] [address] [facility] Start: 07-07-2024 End: 07-07-2024 Patient encounter procedure 07/07/2024 10:00 AM EST Office Visit [facility] [address] [place] [phone] Bunny Hewitt, DO [address] [place] [address] [facility] Start: 06-16-2024 End: 06-16-2025 Basic metabolic 1998 panel - Serum or Plasma Basic metabolic panel Lab Routine Preoperative testing Expected: 06/16/2024, Expires: 06/16/2025 [facility] Work Phone: Comment on above: Expected: 06/16/2024 , Expires: 06/16/2025 Start: 06-16-2024 End: 06-16-2025 CBC W Auto Differential panel - Blood CBC auto differential Lab Routine Preoperative testing Expected: 06/16/2024 (Approximate), Expires: 06/16/[address] [facility] Comment on above: Expected: 06/16/2024 (Approximate), Expires: 06/16/2025 Start: 06-16-2024 End: 06-16-2024 Patient encounter procedure 06/16/2024 10:30 AM EST Office Visit [facility] [address] [place] [address] Hao Donnelly PA [address] [place] [address] [facility] Start: 03-18-2024 End: 03-18-2024 Patient encounter procedure 03/18/2024 7:30 AM EDT Procedure Visit [facility] Bunny Hewitt DO [address] [place] [address] [facility] Start: 03-13-2024 End: 03-13-2024 Patient encounter procedure 03/13/2024 11:00 AM EDT Procedure Visit [facility] [address] [place] [id number] Aixa Zhou MD [address] [place], [place] [id number] Arrived [facility] Comment on above: Arrived Start: 03-09-2024 Influenza vaccination Influenza Vacc ine (#1) [facility] Start: 06-21-2023 Doppler ultrasonogra phy of bilateral carotid arteries US carotid doppler BI [facility] Start: 06-21-2023 US.doppler Carotid arteries - bilateral [facility] Start: 12-09-2015 Pneumococcal Vaccine : 65+ Years (1 of 1 - PCV) Pneumococcal Vaccine: 65+ Years (1 of 1 - PCV) [facility] Start: 2000 Pneumococcal Vaccine : 65+ Years (1 of 1 - PCV) Pneumococcal Vaccine: 65+ Years (1 of 1 - PCV) [facility] Start: 1950 Screening for malign ant neoplasm of colon [facility] Comprehensive metabo lic 2000 panel - Serum or Plasma [facility] CT Abdomen and Pelvi s WO contrast [facility] XR Hip - right 3 Views XR hip ri ght 2 or 3 views Imaging Routine S/P total right hip arthroplasty 10/13/2024 8:31 AM EDT [facility] Work Phone: [facility] Immunizations Immunization Date Immunization Notes Care Provider Fa cility 07-03-2024 influenza virus vaccine, unspecified formulation Lupe CAMACHO [facility] 06-14-2023 influenza virus vaccine, unspecified formulation [facility] 06-07-2022 influenza virus vaccine, unspecified formulation Lupe CAMACHO [facility] 04-03-2022 SARS-CoV-2 (COVID-19 ) [id number] Lupe CAMACHO [facility] Comment on above: Result Comment: 2023: [id number] 06-24-2021 influenza virus vaccine, unspecified formulation Lupe CAMACHO [facility] 05-02-2021 SARS-CoV-2 (COVID-19 ) mRNA-1273 vaccine Lupe CAMACHO [facility] 09-15-2020 SARS-CoV-2 (COVID-19 ) mRNA-1273 vaccine Lupe CAMACHO [facility] 08-18-2020 SARS-CoV-2 (COVID-19 ) mRNA-1273 vaccine Lupe CAMACHO [facility] 03-31-2020 influenza virus vaccine, split virus (incl. purified surface antigen) Sergio Connell Other [employer] Other 03-31-2020 influenza virus vaccine, unspecified formulation [facility] 04-25-2019 influenza virus vaccine, unspecified formulation Lupe CAMACHO [facility] 07-16-2018 influenza virus vaccine, split virus (incl. purified surface antigen) Sergio Connell Other [employer] Other 07-16-2018 influenza virus vaccine, unspecified formulation Lupe CAMACHO [facility] 07-07-2016 influenza virus vaccine, unspecified formulation Lupe CAMACHO [facility] 06-22-2015 influenza virus vaccine, split virus (incl. purified surface antigen) Sergio Connell Other [employer] Other 06-22-2015 influenza virus vaccine, unspecified formulation Lupe CAMACHO [facility] 04-01-2013 tetanus and diphther ia toxoids, adsorbed, preservative free, for adult use (5 Lf of tetanus toxoid and 2 Lf of diphtheria toxoid) Sergio Connell Other [facility] NEGATED: Highlighted row has not occurred!06-10-2019 pneumococcal polysaccharide vaccine, 23 valent Sergio Connell Other [employer] Other Payers Date Payer Category Payer Private Health Insurance [id number] [employer] [id number] 2023-Present [phone] [address] [address] [place] [address] [id number] 2023 Self-pay 2015 Medicare [id number] 1959 Medicare [id number] 1950 Unknown [id number] 2.16.840.1.320141.3.579.2. 593 1950 Unknown [id number] 2.16.840.1.064047.3.579.2. 593 1950 Unknown [id number] 2.16.840.1.719460.3.579.2. 593 1950 Unknown [id number] 2.16.840.1.928849.3.579.2. 593 1950 Unknown [id number] 2.16.840.1.670682.3.579.2. 593 1950 Unknown [id number] 2.16.840.1.127095.3.579.2. 593 1950 Unknown [id number] 2.16.840.1.371821.3.579.2. 727 1950 Unknown [id number] 2.16.840.1.619462.3.579.2. 727 1950 Unknown [id number] 2.16.840.1.810798.3.579.2. 727 1950 Unknown [id number] 2.16.840.1.193940.3.579.2. 727 1950 Unknown [id number] 2.16.840.1.451582.3.579.2. 727 1950 Unknown [id number] 2.16.840.1.538077.3.579.2. 727 1950 Unknown [id number] 2.16.840.1.549512.3.579.2. 1259 1950 Unknown [id number] 2.16.840.1.795328.3.579.2. 1258 1950 Unknown [id number] 2.16.840.1.147323.3.579.2. 1258 1950 Unknown [id number] 2.16.840.1.567472.3.579.2. 1258 1950 Unknown [id number] 2.16.840.1.213589.3.579.2. 1258 1950 Unknown [id number] 2.16.840.1.459649.3.579.2. 1258 1950 Unknown [id number] 2.16840.1.735352.3.579.2. 1258 1950 Unknown [id number] 2.16.840.1.263848.3.579.2. 125 1950 Unknown [id number] 2.16.840.1.167655.3.579.2. 1258 1950 Unknown [id number] 2.16.840.1.837589.3.579.2. 1258 1950 Unknown [id number] 2.16840.1.232967.3.579.2. 1258 1950 Unknown [id number] 2.16.840.1.763620.3.579.2. 1259 1950 Unknown [id number] 2.16.840.1.534965.3.579.2. 1258 1950 Unknown [id number] 2.16.840.1.213129.3.579.2. 9 1950 Unknown [id number] 2.16.840.1.418362.3.579.2. 1258 1950 Unknown [id number] 2.16.840.1.285254.3.579.2. 1259 1950 Unknown [id number] 2.16.840.1.005151.3.579.2. 727 1950 Unknown [id number] 2.16.840.1.025014.3.579.2. 727 1950 Unknown [id number] 2.16.840.1.573009.3.579.2. 727 Unknown [id number] Unknown [id number] 2.16.840.1.565695.3.579.2. 531 Social History Date Type Detail Facility Start: 11-14-2021 End: 12-03-2024 Tobacco smoking status Never smoked tobacco (finding) [facility] Start: 04-16-2024 End: 11-17-2024 Sex Assigned At Male [facility] Start: 1950 Sex Assigned At Male [facility] Tobacco smoking status Never [facility] Start: 05-28-2023 Tobacco use and exposure Smoke less tobacco non-user [facility] Start: 04-16-2024 End: 11-17-2024 Alcoholic beverage intake Current drinker of alcohol (finding) [facility] Start: 04-16-2024 End: 11-17-2024 Alcoholic beverage intake [facility] Start: 05-28-2023 Alcohol Comment caffeine intak e : coffee 2 cups [facility] Start: 1950 Sex assigned at Not on file [facility] Start: 11-15-2015 End: 11-04-2024 Sex Male (finding) [facility] Sexual Orientation [facility] Medical Equipment Procedure Code Equipment Code Equipment Origin al Text Equipment Identifier Dates HIP TOTAL ROBOT ARTHROPLASTY Pocos DOBunny 03/18/24 Unknown Hip R FDA Start: 03-18-2024 [...] 03-18-2024 HIP TOTAL ROBOT ARTHROPLASTY Pocos DOBunny 03/18/24 Unknown Hip R FDA Start: 03-18-2024 HIP TOTAL ROBOT ARTHROPLASTY Pocos DOBunny 03/18/24 Unknown Hip R FDA Start: 03-18-2024 HIP TOTAL ROBOT ARTHROPLASTY Pocos DOBunny 03/18/24 Unknown Hip R FDA Start: 03-18-2024 HIP TOTAL ROBOT ARTHROPLASTY Pocos DOBunny 03/18/24 Unknown Hip R FDA Start: 03-18-2024 Functional Status Date Assessment Result Facility 05-26-2024 Functional Status N/A [facility] 02-18-2024 Functional Status No [facility] 11-02-2023 Functional Status N/A [facility] 05-29-2022 Functional Status N/A [facility] Clinical Notes 11-14-2021 to 12-03-2024 Carmen Valle, DO - 11/17/2024 10:30 AM Selvin Greenberg - 10/13/2024 10:00 AM Marcie Hewitt, DO - 07/07/2024 10:00 AM Heath Greenberg - 06/16/2024 10:30 AM EST Joya Date & Type Note Facility 12-03-2024 Hospital Discharge instructions Patient Education 12/03/2024 11:49:57 24-Hour Urine Collection 24-Hour Urine Collection Why am I having this test? A 24-hour urine specimen is a lab test that requires you to collect all of your urine for an entire day. This is sometimes called a timed urine test. It can provide more information than a single urine sample. There are many reasons to have this test. Your health care provider may order the test to check for or monitor the following conditions: High blood pressure. Kidney disease. Kidney stones. Urinary tract infections. . Diabetes. How do I prepare for this test? You may be asked to follow a special diet during or before the collection period. Follow any instructions from your health care provider. If no special instructions are given, you may eat and drink normally. Take hpgl-usr-juwziyd and prescription medicines only as told by your health care provider. Let your health care provider know about any medicines that you are taking, including hcoq-jgl-lzovzwc medicines, vitamins, herbs, and supplements. Choose a collection day when you can be at home or when you have a place to store the urine. All urine must be collected during the testing period. How do I do a 24-hour urine collection? When you get up in the morning, urinate in the toilet and flush. Write down the time. This will be your start time on the day of collection and your end time on the next morning. From the start time on, all of your urine should be kept in the collection jug that you received from the lab. If the jug that is given to you already has liquid in it, that is okay. Do not throw out the liquid or rinse out the jug. Urinate into a specimen container, such as a urinal or wheeler that sits over the toilet. Pour the urine from the container into the collection jug. Be careful not to spill any of the urine. Use the equipment provided by the lab. Do not let any toilet paper or stool (feces) get into the jug. This will contaminate the sample. Stop collecting your urine 24 hours after you started. Collect the last specimen as close as possible to the end of the 24-hour period. Keep the jug cool in an ice chest or keep it in the refrigerator during collection. When the 24-hour collection is complete, take the jug to the lab as soon as possible. Keep the jug cool in an ice chest while you are bringing it to the lab. What do the results mean? Talk with your health care provider about what your results mean. Questions to ask your health care provider Ask your health care provider, or the department that is doing the test: When will my results be ready? How will I get my results? What are my treatment options? What other tests do I need? What are my next steps? Summary A 24-hour urine specimen is a lab test that requires you to collect all of your urine for an entire day. When you get up in the morning, urinate in the toilet and flush. Write down the time. For the next 24 hours, collect all of your urine in the collection jug that you received from the lab. Keep the jug cool while collecting the urine and while bringing it back to the lab. Take the jug of urine back to the lab as soon as possible after the collection period has ended. This information is not intended to replace advice given to you by your health care provider. Make sure you discuss any questions you have with your health care provider. Document Revised: 12/30/2021 Document Reviewed: 12/30/2021 [employer] Patient Education 2023 [employer]. Follow Up Care 11/18/2024 12:59:29 With:DOUG NATHAN, Lupe Phan, URL Address: [facility] [address] , [place] [address]- When: Unknown [facility] [place] 12-03-2024 Note Patient Education Urology 24-Hour Urine Collection Why am I having this test? A 24-hour urine specimen is a lab test that requires you to collect all of your urine for an entire day. This is sometimes called a timed urine test. It can provide more information than a single urine sample. There are many reasons to have this test. Your health care provider may order the test to check for or monitor the following conditions: ??? High blood pressure. ??? Kidney disease. ??? Kidney stones. ??? Urinary tract infections. ??? . ??? Diabetes. How do I prepare for this test? You may be asked to follow a special diet during or before the collection period. Follow any instructions from your health care provider. If no special instructions are given, you may eat and drink normally. ??? Take yukx-rhc-ngwnfgq and prescription medicines only as told by your health care provider. ??? Let your health care provider know about any medicines that you are taking, including cfef-hay-chkkjyn medicines, vitamins, herbs, and supplements. ??? Choose a collection day when you can be at home or when you have a place to store the urine. All urine must be collected during the testing period. How do I do a 24-hour urine collection? When you get up in the morning, urinate in the toilet and flush. Write down the time. This will be your start time on the day of collection and your end time on the next morning. ??? From the start time on, all of your urine should be kept in the collection jug that you received from the lab. ??? If the jug that is given to you already has liquid in it, that is okay. Do not throw out the liquid or rinse out the jug. ??? Urinate into a specimen container, such as a urinal or wheeler that sits over the toilet. Pour the urine from the container into the collection jug. Be careful not to spill any of the urine. Use the equipment provided by the lab. ??? Do not let any toilet paper or stool (feces) get into the jug. This will contaminate the sample. ??? Stop collecting your urine 24 hours after you started. Collect the last specimen as close as possible to the end of the 24-hour period. ??? Keep the jug cool in an ice chest or keep it in the refrigerator during collection. ??? When the 24-hour collection is complete, take the jug to the lab as soon as possible. Keep the jug cool in an ice chest while you are bringing it to the lab. What do the results mean? Talk with your health care provider about what your results mean. Questions to ask your health care provider Ask your health care provider, or the department that is doing the test: ??? When will my results be ready? How will I get my results? What are my treatment options? What other tests do I need? What are my next steps? Summary ??? A 24-hour urine specimen is a lab test that requires you to collect all of your urine for an entire day. ??? When you get up in the morning, urinate in the toilet and flush. Write down the time. For the next 24 hours, collect all of your urine in the collection jug that you received from the lab. ??? Keep the jug cool while collecting the urine and while bringing it back to the lab. ??? Take the jug of urine back to the lab as soon as possible after the collection period has ended. This information is not intended to replace advice given to you by your health care provider. Make sure you discuss any questions you have with your health care provider. Document Revised: 12/30/2021 Document Reviewed: 12/30/2021 [employer] Patient Education ? 2023 [employer]. [facility] 11-17-2024 History of Present illness Narrative Images from the original note were not included. Chief Complaint: memory changes Subjective Gerry Lay, 73 y.o., male Patient presents today for a neurologic consult at the request of Dr. Sergio Connell for memory changes. Patient is accompanied by his . She states this has been an issue for about one year. She states he is forgetting things around the house like his wallet and keys. He admits to difficulty remembering names and places. Patient is independent in all ADL's. He handles his medications. His admits he does get lost and make wrong turns when driving. His 's mother lives two blocks from them and he will forget where he is going at times. He admits to sleeping well at night about 8 hours. He denies any vivid dreams or hallucinations. His admits an increase in agitation and anxiety. She states he now has a very short fuse. He admits a family history of dementia in his mother. Patient notes he also has an intermittent tremor in his right hand. This has also been for about one year. MOCA- 25/30 Review of Systems Respiratory: Negative for shortness of breath. Cardiovascular: Negative for palpitations. Musculoskeletal: Negative for back pain. Neurological: Positive for dizziness and light-headedness. Negative for syncope. Psychiatric/Behavioral: Positive for confusion. No past medical history on file. Past Surgical History: Procedure Laterality Date CARPAL TUNNEL RELEASE Right 06/26/2024 DAP HIP ARTHROPLASTY Right 03/18/2024 DAP KNEE ARTHROSCOPY W/ ACL RECONSTRUCTION 1994 & 2009 KNEE ARTHROSCOPY W/ ACL RECONSTRUCTION Right 11/29/2016 DAP LITHOTRIPSY ROTATOR CUFF REPAIR 2013 TOTAL HIP ARTHROPLASTY Left 02/15/2016 Family History Problem Relation Name Age of Onset Heart disease Mother Diabetes Father Joseph Heart disease Father Joseph Heart disease Brother Social History Tobacco Use Smoking status: Never Smokeless tobacco: Never Substance Use Topics Alcohol use: Yes Alcohol/week: 2.0 standard drinks of alcohol Types: 2 Cans of beer per week Comment: caffeine intake : coffee 2 cups Allergies: Codeine, Oxycodone-acetaminophen, and Prochlorperazine Vitals: 11/17/24 1029 BP: 146/84 Pulse: 69 SpO2: 98% Body mass index is 35.53 kg/m . Weight: 251 lb 3.2 oz Neurologic exam: Mental status: Awake, alert to person, place and time. MOCA: Language is fluent without aphasia. Attention and concentration are normal. Fund of knowledge is appropriate for level of education. Cranial nerves: CN II: Visual acuity is normal. Visual weems full to confrontation. CN III, IV, : pupils equal round and reactive to light. Extraocular movements intact. No ptosis present. CN V: Facial sensation is normal. CN VII: Full and symmetric facial movement. CN VIII: Hearing is normal to finger rub bilaterally: CN IX and X: Palate elevates symmetrically. CN XI: Shoulder shrug is normal bilaterally. CN XII: Tongue is midline without atrophy or fasciculation. Motor: RUE Strength deltoid, , biceps , triceps , wrist extensors , wrist flexor , investigation division captain strength 5/5. LUE Strength deltoid , biceps , triceps , wrist extensors , wrist flexor , investigation division captain strength 5/5. RLE Strength illopsoas, quadriceps, tibialis anterior, and gastrocnemius strength 5/5. LLE Strength illopsoas, quadriceps, tibialis anterior, and gastrocnemius strength 5/5. Normal tone x4 extremities. Bulk is normal. Sensory: Sensation is intact to light touch throughout Four extremities. Reflexes: RUE biceps reflex 2+ brachioradialis reflex 2+ . LUE biceps reflex 2+ brachioradialis reflex 2+ . RLE knee reflex 2+ . LLE knee reflex 2+ . Sepulveda's sign negative. Coordination: Acoxgv-tw-guza testing and rapid alternating movements are normal Gait: Normal Review and summary of old records: MOCA at [facility] on 11/17/24: Carotid ultrasound on 06/17/2024: Less than 50 percent stenosis bilaterally. Patent and antegrade vertebral flow bilaterally. Assessment/Plan Diagnoses and all orders for this visit: Cognitive dysfunction Tremor It is my impression that the patient has cognitive dysfunction and memory loss. His s this much more so than he does. He did have a Jonatan cognitive assessment today of on 11/17/2024. Carotid ultrasound shows less than 50 percent stenosis bilaterally. Does not appear that there is a definitive family history of memory issues here. However, the patient has also noticed a subtle tremor in the right upper extremity and head. I wonder with a subtle cognitive changes and tremor if these are very early signs of parkinsonism. However, examination otherwise is largely unremarkable. Plan: MRI of the brain with and without contrast Check vitamin B12 Continue to treat thyroid disease with primary care Neuropsych analysis to further evaluate memory difficulties as above and determine type and severity The patient was accompanied today by his who provided additional history and is understanding and agreeable to the plan. Pt has been fully educated on their diagnosis, lab results, treatment options, follow up plan, and return instructions documented in this encounter [facility] 10-13-2024 History of Present illness Narrative Images from the original note were not included. Gerry Lay is a 73 y.o. male presents with chief complaint of right robotic assist total hip, six month check. HPI: Forest returns here today for repeat evaluation of his right hip. He is doing fairly well. He did go off to [place] for the winter. He has had no interval changes. He states he initially was having some spasm type activities. He did seek someone out in [place] who gave him a medication that is not available in the [place] apparently because it does have an association with hypertension. This does appear to be a Cote-2 inhibitor of some type. He does bring a sample box with him here today. He denies any new or interval injury. He has remained active overall. SUBJECTIVE: MEDICATIONS: Current Outpatient Medications Medication Instructions coenzyme Q-10 10 mg, Daily RT hydroCHLOROthiazide (HYDRODIURIL) 25 mg, Daily RT levothyroxine (SYNTHROID, LEVOXYL) 88 mcg, Daily RT rosuvastatin (CRESTOR) 20 mg, Daily RT tadalafil (Cialis) 20 MG tablet TAKE 1 TABLET BY MOUTH NEEDED FOR ERECTILE DYSFUNCTION DIRECTED tamsulosin (FLOMAX) 0.4 mg, 2 times daily ALLERGIES: Allergies Allergen Reactions Codeine Nausea Only and Unknown Other Reaction(s): Nausea present Oxycodone-Acetaminophen GI intolerance Can take Gazelle or hydrocodone without issue Prochlorperazine Family history of severe reaction SURGICAL HISTORY: Past Surgical History: Procedure Laterality Date CARPAL TUNNEL RELEASE Right 06/26/2024 DAP HIP ARTHROPLASTY Right 03/18/2024 DAP KNEE ARTHROSCOPY W/ ACL RECONSTRUCTION 1994 & 2009 KNEE ARTHROSCOPY W/ ACL RECONSTRUCTION Right 11/29/2016 DAP LITHOTRIPSY ROTATOR CUFF REPAIR 2013 TOTAL HIP ARTHROPLASTY Left 02/15/2016 FAMILY HISTORY: Family History Problem Relation Name Age of Onset Heart disease Mother Diabetes Father Joseph Heart disease Father Joseph Heart disease Brother SOCIAL HISTORY: Social History Tobacco Use Smoking status: Never Smokeless tobacco: Never Substance Use Topics Alcohol use: Yes Alcohol/week: 2.0 standard drinks of alcohol Types: 2 Cans of beer per week Comment: caffeine intake : coffee 2 cups Drug use: Never Depression: Not on file REVIEW OF SYMPTOMS: The review of systems, history and current medications list are all reviewed today. OBJECTIVE: Visit Vitals Ht 5' 10.5 Wt 245 lb BMI 34.66 kg/m Smoking Status Never BSA 2.35 m Physical Exam His orthopedic exam reveals internal and external rotation of each hip on the order of 50 degrees of each. He has no trochanteric tenderness. Neurocirculatory status is overall grossly intact. His pulses are otherwise brisk. Examination of the contralateral left hip is without difficulty. X-rays AP pelvis, right lateral hip total of three views with permanent images are saved to the record does show what appears to be a well-fixed, well-aligned total hip arthroplasty bilaterally. Both hips are located. There is no evidence of fracture or other osseous abnormality. ASSESSMENT AND PLAN: Assessment/Plan Status post right total hip arthroplasty. The findings are discussed. The treatment alternatives are outlined. We did recommend supportive care and advancement of all activities. He does voice understanding of this. We will see him back here in six months for x-ray and recheck of both hips. We will take this as his annual visit. All questions are otherwise answered. Cosigned by Bunny Hewitt DO at 10/14/2024 7:17 PM EDT documented in this encounter [facility] 07-07-2024 History of Present illness Narrative Chief complaint: S/P carpal tunnel-first postoperative visit History: S/P carpal tunnel release, doing well. No complaints with anesthesia or albin-operative ancillary care. Pain is controlled. No chest or SOB. Dysthesias are improving. Physical Exam: Inspections shows mild swelling and ecchymosis as expected. Incision is clean, dry and intact. Sutures are removed. No signs of infection or blood clot. Pain and dysthesias improved. Xrays: None today. Assessment: S/P carpal tunnel release-first post operative visit Treatment Plan: The nature of the findings were discussed at length. Continue investigation division captain and start Vitamin E oil massage, exercises twice daily for the next few weeks. Etiology of pillar pain reviewed and will lessen over the next couple months. Salvage Clerk strength and return expectations reviewed, with improvement up to 3-6 months.. OT was offered and discussed. F/U will be in 1 months, prn if doing well. All questions answered. documented in this encounter [facility] 06-16-2024 History of Present illness Narrative Images from the original note were not included. GENERAL HISTORY AND PHYSICAL: NAME: Gerry Lay : 1950 CHIEF COMPLAINT: Follow up right total hip arthroplasty, 03-18-[address] persistent right carpal tunnel syndrome. HISTORY OF PRESENT ILLNESS: This is a 73 y.o. male who presents for a pre-op H&P. Forest returns here today for the right hip. He is doing well. He is three months out, still has a little bit of pain. This is with start up mainly. He is just released from the therapy. He will be leaving off to [place] just after the first of the year. He will be there for three months. He denies any new or interval symptoms. He has been advancing his activities as is otherwise tolerated. He does mention as an aside and by the way here today that he would like further discussion on his carpal tunnel. He does persist with numbness and tingling. This has been going on for years, but worse over recent. He wanted to see how he did with the hip. He is now presenting with persistent symptomatology and does question next steps. He reports no new or interval symptoms. PAST MEDICAL HISTORY: History reviewed. No pertinent past medical history. PAST SURGICAL HISTORY: Past Surgical History: Procedure Laterality Date HIP ARTHROPLASTY Right 03/18/2024 DAP KNEE ARTHROSCOPY W/ ACL RECONSTRUCTION 1994 & 2009 KNEE ARTHROSCOPY W/ ACL RECONSTRUCTION Right 11/29/2016 DAP LITHOTRIPSY ROTATOR CUFF REPAIR 2012 TOTAL HIP ARTHROPLASTY Left 02/15/2016 SOCIAL HISTORY: Social History Occupational History Not on file Tobacco Use Smoking status: Never Smokeless tobacco: Never Substance and Sexual Activity Alcohol use: Yes Alcohol/week: 2.0 standard drinks of alcohol Types: 2 Cans of beer per week Comment: caffeine intake : coffee 2 cups Drug use: Never Sexual activity: Yes Partners: Female control/protection: None ALLERGIES: Allergies Allergen Reactions Codeine Nausea Only and Unknown Other Reaction(s): Nausea present Oxycodone-Acetaminophen GI intolerance Can take Gazelle or hydrocodone without issue Prochlorperazine Family history of severe reaction MEDICATIONS: Current Outpatient Medications Medication Instructions aspirin 81 mg, Oral, Daily cephalexin (Keflex) 500 MG capsule Take all 4 capsules one hour before the procedure. coenzyme Q-10 10 mg, Oral, Daily RT hydroCHLOROthiazide (HYDRODIURIL) 25 mg, Oral, Daily RT levothyroxine (SYNTHROID, LEVOXYL) 88 mcg, Oral, Daily RT rosuvastatin (CRESTOR) 20 mg, Oral, Daily RT tadalafil (Cialis) 20 MG tablet TAKE 1 TABLET BY MOUTH NEEDED FOR ERECTILE DYSFUNCTION DIRECTED tamsulosin (FLOMAX) 0.4 mg, Oral, 2 times daily REVIEW OF SYSTEMS: The review of systems, history and current medications list are all reviewed today. Vitals: Visit Vitals Ht 5' 10.5 Wt 247 lb BMI 34.94 kg/m Smoking Status Never BSA 2.36 m PHYSICAL EXAM: His orthopedic exam here today of the hip reveals internal and external rotation on the order of 35 degrees of each bilaterally really. The calf and thigh are supple. No apparent limb length inequality. His neurocirculatory status is overall grossly intact. With regard to the carpal tunnel, he does have a positive Tinel's, positive Phalen's at around 20 seconds on the right, more like 40 seconds on the left. He has no atrophy bilaterally. Radial and ulnar pulses are brisk. X-rays AP pelvis, right lateral hip , a total of 3 views with permanent images saved to the record, show well-fixed, well-aligned total hip arthroplasty bilaterally. No evidence of fracture, loosening or catastrophic wear. Surgical History and Physical: GENERAL AND PSYCHOLOGICAL: The patient is alert and oriented for age. HEAD AND E.E.N.T.: The skull is normocephalic. There is no mass or sign of trauma. NECK: The neck is supple. There is good range of motion. There is no mass or adenopathy appreciated. The thyroid is not enlarged. CARDIAC: The heart is regular. There is no murmur or ectopy appreciated. LUNGS: Inspiratory and expiratory excursions are symmetrical. The lung weems are clear in all quadrants. ABDOMEN: The texture is soft. Bowel sounds are heard well in all quadrants. There is no tenderness to palpation. There is no organomegaly appreciated. OSTEOPATHIC AND STRUCTURAL: There is no gross evidence of kyphosis, lordosis, scoliosis, or apparent leg length discrepancy, with no acute tissue texture changes in sitting or standing positions. ASSESSMENT: Status post right total hip arthroplasty with persistent right wrist median neuropathy, carpal tunnel syndrome. PLAN: The findings are discussed. 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 We did discuss surgical intervention for this. He would like to go ahead with that. We will get this set up accordingly and we will try to accommodate him to have this done, have the follow up and then leave the country for the winter. We did outline the risks, complications, and reasonable expectations as being that of infection, nerve or blood vessel injury, wound healing difficulty and dehiscence, the expectations with regard to recovery and return to function. Routine testing will be done based upon age and gender. All of his questions are otherwise answered. We discussed the goal of the carpal tunnel surgery is not relief of symptoms, but rather for prevention of further and possible irreversible damage to the median nerve. He does voice understanding of this. All questions are otherwise answered. Follow up letter sent to his primary care physician. Bunny Hewitt D.O. documented in this encounter [facility] 05-26-2024 Hospital Discharge instructions Patient Education 05/26/2024 09:43:11 Kidney Stones, Uwkj-in-Rafd Kidney Stones Kidney stones are rock-like masses [...] Follow these instructions at home: Medicines Take uloi-rnh-qizywqm and prescription medicines only as told by [...] provider. Document Revised: 02/16/2023 Document Reviewed: 02/16/2023 [employer] Patient Education 2023 [employer]. Follow Up Care 11/02/2023 13:22:05 With:DOUG NATHAN, Lupe Phan, URL Address: [facility] [address], [place] [address]- [phone] When: Unknown Comments:6 mos w/ PSA and KUB [facility] 05-26-2024 Note Patient Education Urology Kidney Stones Kidney stones [...] these instructions at home: Medicines ??? Take buir-ear-foymxfn and prescription medicines only as told by [...] provider. Document Revised: 02/16/2023 Document Reviewed: 02/16/2023 [employer] Patient Education ? 2023 [employer]. [facility] 04-16-2024 History of Present illness Narrative Post [...] x-ray and exam. Metal detectors are discussed. jail antibiotic prophylaxis for dental or invasive work were reviewed. Numerous questions were answered. The patient is discharged in stable condition. documented in this encounter [facility] 03-18-2024 Note Progress Note-Js dickey Patient: GERRY LAY Age: 73 years Sex: Male : 1950 Associated Diagnoses: None Author: Lucas Veloz MD Postoperative Information Postoperative disposition: Postoperative disposition: To PACU. Optimetrix number: Optimetrix number [id number]. Anesthetic utilized: General. Regional: FIB . Health [...] when meets criteria ( To home ). [facility] Comment on above: Result Comment: Elec tronically Signed By: Lucas Veloz MD\.br\Date and Time Signed: 03/18/24 14:43 EDT 03-18-2024 Note Interdisciplinary No te - PT PT evaluation completed with an AMPAC score of 18/24. Pt able to ambulate 75 ft with CGA and FWW. Pt would be functionally safe to be discharged home with caregiver assist and [id number] to follow. [facility] 03-18-2024 Evaluation + Plan note Extrac prabuh from: Title:ANES Post-operative Note---General Author: Lucas Veloz MD. Date:03/18/24 Plan Transfer/Discharge: Transfer/Discharge Discharge when meets criteria ( To home ). Extracted from: Title:ANES Pre-operative Note 2022 Author:Lucas Soriano Date:03/18/24 Plan [place] [employer]esthesi[employer] (ASA) physical status classification: Class III. Anesthetic Preoperative Plan: Anesthesia. Regional Spinal, and Fascia Iliaca Block . Future Appointments Appointment Date:05/26/2024 08:45:00 AM Scheduled Provider:Lupe CAMACHO MD Location:[facility] Appointment Type:URO Office Visit [facility] 09-10-2024 Hospital Discharge instructions Patient Education 03/18/2024 11:31:13 Post Op Patient Instructions - FT (Custom) (CUSTOM) 03/11/2024 07:09:40 [place] - Hip Replacement Arthroplasty - Posterior Lateral Approach (Custom) [place], [place] [facility] DISCHARGE INSTRUCTIONS HIP REPLACEMENT [...] will continue at home, possible with the election assistant of Home Health Physical Therapy or in the hospital as an outpatient. When you have become independent withthe physical therapy program, this will then be discontinued as a supervised program and you will be instructed to continue the physical therapy exercises at home. DRIVING: Do NOT Drive FOLLOW-UP OFFICE VISIT: 4 weeks Postop Bunny Hewitt, DO [facility] [address] [place] [id number] Revised: 11-28 Follow Up Care 02/11/2024 10:15:08 With:Bunny Hewitt Address: [address] [place] [phone] Business (1) When:04/16/2024 14:30:00 Comments:Appointment has already been scheduled. Call for any problems. [facility] 09-10-2024 NotePatient Education - Text [place], [place] [facility] DISCHARGE INSTRUCTIONS HIP REPLACEMENT [...] will continue at home, possible with the election assistant of Home Health Physical Therapy or in the hospital as an outpatient. When you have become independent withthe physical therapy program, this will then be discontinued as a supervised program and you will be instructed to continue the physical therapy exercises at home. DRIVING: Do NOT Drive FOLLOW-UP OFFICE VISIT: 4 weeks Postop Bunny Hewitt DO [facility] [address] [place] [address] Revised: 11-28[facility]09-10-2024 NoteProgress Note-Physician Patient: GERRY LAY Age: 73 years Sex: Male : 1950 Associated Diagnoses: None Author: Bunny Hewitt DO Postoperative Information Procedure: R RA JAZIEL Preoperative Diagnosis: R hip OA. Postoperative Diagnosis: same. Performed by: bridgette. Solar Energy System Installer: Patrice Cisneros. Specimens Removed: bone, soft tissue. Prosthesis: Udall. . Estimated Blood Loss: 300 ml. Complications: None. Anesthesia type: Spinal, fascia iliaca block.[facility]:Result Comment: Electronically Signed By: Bunny Hewitt DO\.br\Date and Time Signed: 03/18/24 10:23 [id number] NoteProgress Note-Physician Patient: GERRY LAY Age: 73 [...] dysfunction, # 30 tab(s), Refills(s) 3, Pharmacy: [facility]/pharmacy #[id number], 178, cm, 11/02/23 11:57:00 EDT, Height/Length Dosing, 102, kg, 11/02/23 11:57:00 EDT, Weight Dosing Colace 100 mg Cap: 100 mg = 1 cap(s), Oral, BID, PRN for constipation, # 40 cap(s), Refills(s) 0, Pharmacy: [facility]/pharmacy #[id number], 177.5, cm, 02/18/24 14:14:00 EDT, Height/Length Dosing, 111.4, kg, 02/18/24 14:14:00 EDT, Weight Dosing Flomax 0.4 mg Cap: 0.4 mg = 1 cap(s), Oral, BID, # 180 cap(s) (more content not included)...[facility]:Result Comment: Electronically Signed By: Aj NATHAN, Lucas Matias\.br\Date and Time Signed: 03/18/24 09:06 [id number] History of Present illness Narrative* Flor Lerner MA - 03/13/2024 11:00 AM EDT Images from the original note were not included. Reason for Appointment: EMG Patient: Gerry Valverde Lay : 1950 EMG Computer: [employer] Referring Physician: Dr. Hewitt EMG: MEL microsoft bi architect: Flor Lerner [facility] Office Location: [place] Reason for EMG: c/o pins and needles in the right hand. Less with starting vitamin B6. Electrical shocks in the hand. 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 Thumb pain. No Hx of DM, not taking blood thinners. Comments: Procedure explained to the patient who expressed understanding. documented in this encounterMercy Hospital St. [id number] NotePatient Education - Text [place], [place] [facility] DISCHARGE INSTRUCTIONS HIP REPLACEMENT [...] will continue at home, possible with the election assistant of Home Health Physical Therapy or in the hospital as an outpatient. When you have become independent withthe physical therapy program, this will then be discontinued as a supervised program and you will be instructed to continue the physical therapy exercises at home. DRIVING: Do NOT Drive FOLLOW-UP OFFICE VISIT: 4 weeks Postop Bunny Hewitt, DO [facility] [address] [place] [address] Revised: 11-28[facility]04-26-2024 Hospital Discharge instructions Patient Education 11/02/2023 13:09:17 [...] Follow these instructions at home: Medicines Take rlcd-xju-douqpew and prescription medicines only as told by [...] provider. Document Revised: 09/21/2021 Document Reviewed: 09/21/2021 [employer] Patient Education 2022 [employer] Follow Up Care 05/25/2023 13:25:49 With:DOUG NATHAN, Lupe Phan, URL Address: [address] [place] [address]- When: Unknown [facility] 10-25-2023 Evaluation note* Encounter Date Diagnosis Assessment Notes Treatment Notes Treatment Clinical Notes Apr, Left lower lobe pulmonary nodule (ICD-10 - R91.1) [facility] Other 09-07-2023 Evaluation note* Encounter Date Diagnosis Assessment Notes Treatment Notes Treatment Clinical Notes Mar, Benign paroxysmal positional vertigo due to bilateral vestibular disorder (ICD-10 - H81.13) Pt requests referral to Dr. Crockett - states his office would like a CT sinus to be complete prior to the OV. [facility] Other 07-06-2023 Evaluation note* Encounter Date Diagnosis Assessment Notes Treatment Notes Treatment Clinical Notes Jan, Dyspnea on exertion (ICD-10 - R06.09) [facility] Other 06-26-2023 Evaluation note* Encounter Date Diagnosis Assessment Notes Treatment Notes Treatment Clinical Notes Dec, Primary hypertension (ICD-10 - I10) Chronic problem- check labs and EKG. Upcoming trip to [place] later this summer. Dec, BPV (benign positional vertigo), bilateral (ICD-10 - H81.13) Order printed for PT Dec, Acquired hypothyroidism (ICD-10 - E03.9) Check labs. [facility] Other 11-21-2022 Hospital Discharge instructions Patient Education [...] include: ?Spinach. ?Rhubarb. ?Beets. ?Potato chips and liberian fries. ?Nuts. If you regularly take a diuretic medicine, make sure to eat at least 1 2 fruits or vegetables high in potassium each day. These include: ?Avocado. ?Banana. ?[place], prune, carrot, or tomato juice. ?Baked potato. [...] Casseroles. Pizza. Lasagna. Frozen meals. Potato chips. Burundian fries. Summary You can reduce your risk [...] 10/20/2011 Document Revised: 10/15/2019 Document Reviewed: 06/05/2017 [employer] Patient Education 2020 [employer] Follow Up Care 11/14/2021 11:17:31 With:DOUG NATHAN, Lupe Phan, URL Address: [facility] [address] [place] [address]- When: Unknown [facility] 05-09-2022 Hospital Discharge instructions Patient Education 11/14/2021 [...] include: ?Spinach. ?Rhubarb. ?Beets. ?Potato chips and liberian fries. ?Nuts. If you regularly take a diuretic medicine, make sure to eat at least 1 2 fruits or vegetables high in potassium each day. These include: ?Avocado. ?Banana. ?[place], prune, carrot, or tomato juice. ?Baked potato. [...] Casseroles. Pizza. Lasagna. Frozen meals. Potato chips. Burundian fries. Summary You can reduce your risk [...] 10/20/2011 Document Revised: 10/15/2019 Document Reviewed: 06/05/2017 [employer] Patient Education 2019 [employer]. Follow Up Care 07/15/2021 13:17:36 With:Lupe CAMACHO MD, URL Address: [facility] [address], [place] [address]- When: Unknown [facility] evaluation + Plan note Future Appointments Appointment Date:05/29/2022 09:15:00 AM Scheduled Provider:Lupe CAMACHO MD Location:[facility] Appointment Type:URO Office Visit Diagnostic Tests Pending * PSA Total 11/14/21 * Calculi Analysis Urinary 11/14/21 [facility] evaluation + Plan note Future Appointments Appointment Date:06/04/2023 09:15:00 AM Scheduled Provider:Lupe CAMACHO MD Location:[facility] Appointment Type:URO Office Visit Diagnostic Tests Pending * PSA Total 05/29/22 [facility] evaluation + Plan note Future Appointments Appointment Date:05/26/2024 08:45:00 AM Scheduled Provider:Lupe CAMACHO MD Location:[facility] Appointment Type:URO Office Visit Diagnostic Tests Pending * PSA Total 12/22/23 * PSA Total 03/09/24 [facility] evaluation + Plan note Future Appointments Appointment Date:03/18/2024 09:00:00 AM Scheduled Provider: Location:[facility] Appointment Type:Surgery FT Appointment Date:05/26/2024 08:45:00 AM Scheduled Provider:Lupe CAMACHO MD Location:[facility] Appointment Type:URO Office Visit [facility] Evaluation + Plan note Future Appointments Appointment Date:11/21/2024 08:45:00 AM Scheduled Provider:Lupe CAMACHO MD Location:[facility] Appointment Type:URO Office Visit Diagnostic Tests Pending * PSA Total 05/26/24 * Calculi Analysis Urinary 05/26/24 [facility] evaluation noteNo InformationNort [email or web address] Other Evaluation noteNo assessment information available [facility] Work Phone: Evaluation note* Diagnosis Onset Date Resolution Status HTN (hypertension) acute Hyperlipidemia acute Hypothyroid acute [facility] Work Phone: Evaluation note* Diagnosis S/P total right hip arthroplasty- Primary [facility] Diagnosis S/P total right hip arthroplasty- Primary Preoperative testing Unspecified pre-operative examination Carpal tunnel syndrome on right Carpal tunnel syndrome [facility]* Diagnosis Carpal tunnel syndrome of right wrist- Primary [facility]* Diagnosis Carpal tunnel syndrome on right- Primary Carpal tunnel syndrome [facility]* Diagnosis S/P carpal tunnel release- Primary Other postprocedural status [facility]* Diagnosis S/P total right hip arthroplasty- Primary [facility]* Diagnosis Onset Date Resolution Status Admit Date Acute right flank pain acute Ap ril 2024 9:49am [facility] Work Phone: Evaluation note* Diagnosis Cognitive dysfunction- Primary Unspecified persistent mental disorders due to conditions classified elsewhere Tremor Abnormal involuntary movements Long-term use of high-risk medication documented in this encounter [facility] Narrative - Reported* Type Description Date Medical History Kidney stones Medical History Hypercholesterolemia Surgical History lithotripsy Surgical History cystoscopy Surgical History knee arthroscopy Surgical History rotator cuff Surgical History cholecystectomy Surgical History Colonoscopy 12/2022 Hospitalization History see above [facility] Other Hospital course Narrative No data available for this section [facility] Hospital Discharge instructions No data available for this section [facility] note No data available for this section [facility] reason for visit Narrativereferral for vertigo, [facility] [employer] Other Reason for visit Narrative* Consultation (Routine) - Closed Specialty Diagnoses / Procedures Referred By Harmony sorensen Referred To Contact Neurology Diagnoses Other amnesia Procedures SD OFFICE/OUTPATIENT NEW [facility] Sergio Connell MD Phone: tel: fax: Aixa Zhou MD Referral ID Status Reason Start Date Expiration Date V isits Requested Visits Authorized [id number] Closed Consult and Treat 06/19/2024 12/16/2024 1 1 [facility] Summary Purpose Family History No Family History [...] June 12, 2023 1:51pm Reason for Referral Specialty Diagnoses / Procedures Referred By Harmony sorensen Referred To Contact Diagnoses Carpal tunnel syndrome of right wrist Procedures NVC 7-8 Nerves Aixa Zhou MD [address] [place] [address] Referral ID Status Reason Start Date Expiration Date V isits Requested Visits Authorized [id number] Pending Review 03/13/2024 09/09/2024 1 1 Reason vertigo - today s visit Diagnosis 1 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) [facility] Referring Provider First Name Sergio Referring Provider Last Name Ko Referring Provider Specialty Family [facility] Referred Organization [facility] Referred Provider Sukhdeep Crockett Referred Address ,[place], [place],[address] Referred Provider Specialty Otolaryngolo gy Referral Priority Routine General Notes Mia Thrasher 11:33:32 AM >recieved today, insurance attached, waiting for notes to be locked to fax Mia Thrasher 03/20/2023 09:26:55 AM >SENT TE TO LOCK NOTES Chief Complaint and Reason for Visit Chief Complaint H91.8X3 H81.391 R42 Chief Complaint Amb Documentation stuffy nose Reason for Visit HTN (hypertension) Hyperlipidemia Hypothyroid Chief Complaint Admit Date Back Pain November 04, 2024 9:4 9am Reason for Visit Admit Date Acute right flank pain November 04, 2024 9:49am Additional Source Comments Patient Care team informatio n (unrecognized section and content) Team Status: Active Member Role Status Dates Sergio Connell MD Primary Care Provider Active Team Status: Inactive Member Role Status Dates Sergio Connell MD Primary Care Provide r, Attending Provider Active Start: November 04, 2024 End: November 04, 2024 Team Status: Active Member Role Status Dates [...] Sergio Connell MD Primary Care Provider Active Candlemaking Laborer Relationship Specialty Start Date End Date Sergio Connell MD [address] [place] [address] PCP - General Family Medicine 05/24/23 Candlemaking Laborer Relationship Specialty Start Date End Date Sergio Connell MD [address] [place] [phone] PCP - General Family Medicine 05/24/23 Candlemaking Laborer Relationship Specialty Start Date End Date Sergio Connell MD [address] [facility] [place] [address] PCP - General Family Medicine 05/24/23 Candlemaking Laborer Relationship Specialty Start Date End Date Sergio Connell MD [address] [facility] [place] [address] PCP - General Family Medicine 05/24/23 Candlemaking Laborer Relationship Specialty Start Date End Date Sergio Connell MD [address] [facility] [place] [address] PCP - General Family Medicine 05/24/23 Candlemaking Laborer Relationship Specialty Start Date End Date Sergio Connell MD [address] [facility] [place] [address] PCP - General Family Medicine 05/24/23 Candlemaking Laborer Relationship Specialty Start Date End Date Sergio Connell MD [address] [facility] [place] [phone] PCP - General Family Medicine 05/24/23 Candlemaking Laborer Relationship Specialty Start Date End Date Sergio Connell MD [address] [facility] [place] [address] PCP - General Family Medicine 05/24/23 (unrecognized sect ion and content) No Status Records FoundNo Status Records FoundNo Status Records FoundNo Status Records FoundNo Status Records FoundNo Status Records FoundNo Status Records FoundNo Status Records FoundNo Status Records FoundNo Status Records FoundNo Status Records FoundNo Status Records FoundNo Status Records Found INFORMATION SOURCE (unrecogn ized section and content) DATE CREATED AUTHOR 06/30/2022 [facility] DATE CREATED AUTHOR AUTHOR'S ORGANIZ ATION 08/17/2023 [facility] DATE CREATED AUTHOR AUTHOR'S ORGANIZ ATION 02/19/2024 [facility] DATE CREATED AUTHOR AUTHOR'S ORGANIZ ATION 03/19/2024 [facility] DATE CREATED AUTHOR AUTHOR'S ORGANIZ ATION 03/22/2024 [facility] DATE CREATED AUTHOR AUTHOR'S ORGANIZ ATION 05/27/2024 [facility] DATE CREATED AUTHOR AUTHOR'S ORGANIZ ATION 11/17/2024 [facility] DATE CREATED AUTHOR AUTHOR'S ORGANIZ ATION 12/05/2024 [facility] REASON FOR VISIT (unrecogniz ed section and content) Reason Comments Post-op Reason Comments Post-op R RA JAZIEL 03/18/24 Specialty Diagnoses / Procedures Referred By Contac t Referred To Contact Neurology Diagnoses Carpal tunnel syndrome, right upper limb Procedures SD NERVE CONDUCTION STUDIES 9-10 STUDIES SD NEEDLE EMG EA EXTREMTY W/PARASPINL AREA COMPLETE Bunny Hewitt, [address] [place] [address] Soni Angelo DO [address] [place] [address] Referral ID Status Reason Start Date Expiration Date Visits Re quested Visits Authorized [id number] Closed 02/22/2024 08/20/2024 1 1 Reason Comments Follow-up Goals (unrecognized section and content) Goals may [...] BE BASED ON THE PRIMARY CLINICAL RECORDS. [employer] [facility]. provides no warranty or guarantee of the accuracy or completeness of information in this document.
--- NOTE | 2024-12-05 08:34 | MR_ITS ---
The [address] [address] Patient Name: GERRY LAY MRN: [id number] date: 1950 Sex: M Assigned Patient Location: LAB Current Patient Location: LAB Accession/Order Number: [id number] Exam Date: 12/05/2024 10:30 Report Date: 12/05/2024 10:35 At the request of: CARMEN LINDA DO Procedure: MR head/brain wo/w con MR head/brain wo/w con 12/05/2024 10:01 AM SIGN AND SYMPTOMS: Cognitive Dysfunction, Tremor PROTOCOL: Multiplanar multisequence MR images of the brain were obtained with and without IV contrast CONTRAST: 20 mL of intravenous Dotarem COMPARISON: None. FINDINGS: Extra axial spaces: There is age-related fluid collection is Hemorrhage: None. Ventricular system: Within normal limits. Basal cisterns: Within normal limits and not effaced. Cerebral parenchyma: T2 and FLAIR hyperintense signal is noted in the periventricular and subcortical white matter. No abnormal postcontrast enhancement. Midline shift: None.. Cerebellum: Within normal limits. Brainstem: Within normal limits. OTHER: Calvarium: Normal marrow signal. Vascular system: Satisfactory flow voids within the anterior and posterior circulation. Visualized Paranasal sinuses: Within normal limits. Visualized Orbits: Within normal limits. Visualized upper cervical spine: Within normal limits. Sella and skull base: Within normal limits. MR/MR head/brain wo/w con IMPRESSION: No acute intracranial pathology or abnormal postcontrast enhancement. Chronic age-related changes are noted above. Impression dictated by: Eloy Barnard M.D. 12/05/2024 10:35 AM Dictation Location: [place] [address] Electronically authenticated by: [id number] Y Date: 12/05/2024 10:35
[2024-12-05 08:45] LABS: Estimated GFR (African America >60 (>=60 mL/min/1.73m^2); Estimated GFR (Non-African Ame >60 (>=60 mL/min/1.73m^2)
== END 2024-12-05 08:19 | disposition home or self-care (01) ==
LOC: LAB 08:18
PROVIDERS: Family Provider Optometrist; PCP Family Medicine; Visit Provider Psychiatry & Neurology Neurology
DX: F09 Unspecified mental disorder due to known physiological condition (principal); R25.1 Tremor, unspecified
CPT/HCPCS: 36415; 70553; 82565; A9575

== ENCOUNTER 2025-01-14 08:40 | Outpatient (OUT) | payer MEDICARE, OTHER, SELFPAY ==
--- OUTSIDE RECORDS SUMMARY | 2025-01-12 11:28 | XMS_ITS | Encounter Summary ---
Author Organization [facility] Address [address] [facility] [place] [address] Care Team Providers Care Leather Tacker Name Role Phone Regina Hammer MD Primary Care Provider [phone] Encounter Details Date Type Department Care Team (Late st Contact Info) Description 03/18/2024 Clinisync Result Encounter [facility] External Department Unsolicited Gorge Hewitt DO [address] [place] [address] Social History Tobacco Use Types Packs/Day Years [...] [facility] [address] [place] [address] [place] [address] Gorge Hewitt DO [address] [place] [address] documented as of this encounter Procedures Procedure Name Priority Date/Time Associated Diagnosis Comments XR HIP 1 VIEW RIGHT + PELVIS 03/18/2024 10:41 AM EDT documented in this encounter Results * XR HIP 1 VIEW RIGHT + PELVIS (03/18/2024 10:41 AM EDT) Anatomical Region Laterality Modality Other 03/18/2024 10:4 1 AM EDT Narrative 03/20/2024 1:42 PM EDT Exam Date/Time: 03/18/2024 10:56 EDT Reason for [...] left hip arthroplasty again identified. Ordering Provider: Gorge Hewitt FINAL REPORT Dictated: 03/20/2024 1:39 pm Loyd Fernandez DO Signed (Electronic Signature): 03/20/2024 1:39 pm Signed by: Loyd Fernandez DO Transcribed by: NICCI Technologist: RICHARD Technical Comments Radiation Dose: Ka,r in mGy = na DAP = na Procedure Note Radiology, Radiologist, MD - 03/20/2024 Exam Date/Time: 03/18/2024 10:56 EDT Reason for Exam: Post Op Report IMPRESSION: INTERVAL POSTSURGICAL CHANGES OF RIGHT TOTAL HIP ARTHROPLASTY. EXAM: X-ray hip, 2 view HISTORY: Postoperative evaluation total hip arthroplasty TECHNIQUE: Frontal and lateral views of the right hip COMPARISON: 02/15/2016 radiographs FINDINGS: Interval postsurgical changes of right total hip arthroplasty includingsoft tissue emphysema. Alignment is anatomic. No periprosthetic abnormality.Postsurgical changes of left hip arthroplasty again identified. Ordering Provider: Gorge Hewitt FINAL REPORT Dictated: 03/20/2024 1:39 pm Loyd Fernandez DO Signed (Electronic Signature): 03/20/2024 1:39 pm Signed by: Loyd Fernandez DO Transcribed by: NICCI Technologist: RICHARD Technical Comments Radiation Dose: Ka,r in mGy = na DAP = na Gorge Hewitt DO [facility] Final Result documented in this encounter Visit Diagnoses Not on filedocumented in this encounter Care Teams Leather Tacker Relationship Specialty Start Date End Date Regina Hammer MD [address] [place] [phone] PCP - General Family Medicine 05/24/23 documented as of this encounter
--- OUTSIDE RECORDS SUMMARY | 2025-01-12 11:28 | XMS_ITS | Encounter Summary ---
Author Organization [facility] Address [address] [place] [address] Care Team Providers Care Security System Sales Consultant Name Role Phone Regina Hammer MD Primary Care Provider [phone] Encounter Details Date Type Department Care Team (Late st Contact Info) Description 04/12/2023 Orders Only [facility] [address] [place] [address] Regina Hammer MD [address] [facility] [place] [address] Social History Tobacco Use Types Packs/Day [...] [facility] [address] [place] [place] [phone] PocGorge [place], DO [address] [place] [address] documented as of this encounter Procedures Procedure Name Priority Date/Time Associated Diagnosis Comments CT SCAN Routine 03/16/2023 10:02 AM EDT documented in this encounter Results * CT SCAN (03/16/2023 10:02 AM EDT) Anatomical Region Laterality Modality Radiographic Lindsay ging us Regina Hammer MD IMG XR PROCEDURES Final Result documented in this encounter Visit Diagnoses Not on filedocumented in this encounter Care Teams Security System Sales Consultant Relationship Specialty Start Date End Date Regina Hammer MD [address] [place] [phone] PCP - General Family Medicine 05/24/23 documented as of this encounter
--- OUTSIDE RECORDS SUMMARY | 2025-01-12 11:28 | XMS_ITS | Encounter Summary ---
Author Organization [facility] Address [address] [facility] [place] [address] Care Team Providers Care Weaving Loom Operator Name Role Phone Regina Hammer MD Primary Care Provider [phone] Encounter Details Date Type Department Care Team (Late st Contact Info) Description 05/28/2023 Abstract [facility] [address] [place] [phone] Meghan Arreaga MA Social History Tobacco Use [...] [facility] [address] [place] [phone] Gorge Hewitt DO [address] [place] [address] documented as of this encounter Visit Diagnoses Not on filedocumented in this encounter Care Teams Weaving Loom Operator Relationship Specialty Start Date End Date Regina Hammer MD [address] [facility] [place] [phone] PCP - General Family Medicine 05/24/23 documented as of this encounter
--- OUTSIDE RECORDS SUMMARY | 2025-01-12 11:28 | XMS_ITS | Encounter Summary ---
Author Organization [facility] Address [address] [facility] [place] [address] Care Team Providers Care Residential Finish Carpenter Name Role Phone Regina Hammer MD Primary Care Provider [phone] Encounter Details Date Type Department Care Team (Late st Contact Info) Description 05/28/2023 Abstract [facility] [address] [place] [phone] Meghan Arreaga MA Social History Tobacco Use [...] [facility] [address] [phone] Gorge Hewitt DO [address] [place] [address] documented as of this encounter Visit Diagnoses Not on filedocumented in this encounter Care Teams Residential Finish Carpenter Relationship Specialty Start Date End Date Regina Hammer MD [address] [facility] [phone] PCP - General Family Medicine 05/24/23 documented as of this encounter
--- OUTSIDE RECORDS SUMMARY | 2025-01-12 11:28 | XMS_ITS | Encounter Summary ---
Author Organization [facility] Address [address] [facility] [place] [address] Care Team Providers Care Public Works Supervisor Name Role Phone Regina Hammer MD Primary Care Provider [phone] Encounter Details Date Type Department Care Team ([facility] Contact Info) Description 03/18/2024 Abstract [facility] [address] [place] [address] Gorge Hewitt DO [address] [place] [address] Social History Tobacco Use Types Packs/Day Years [...] [facility] [address] [place] [address] Gorge Hewitt DO [address] [place], [place] [phone] documented as of this encounter Visit Diagnoses Not on filedocumented in this encounter Care Teams Public Works Supervisor Relationship Specialty Start Date End Date Regina Hammer MD [address] [place] [address] PCP - General Family Medicine 05/24/23 documented as of this encounter
--- OUTSIDE RECORDS SUMMARY | 2025-01-12 11:29 | XMS_ITS | Clinical Summary ---
Author Organization [facility] Address [address] [facility] [place] [address] Care Team Providers Care Training Lead Name Role Phone Regina Hammer MD Primary Care Provider Allergies Active Allergy Reactions Criticality Noted Date Comments Codeine Nausea Only,Unknown 10/27/2022 Other Reaction(s): Nausea present Oxycodone-Acetaminophen GI intolerance 10/28/19 23 Can take [place] or hydrocodone without issue Prochlorperazine 10/27/2022 Family [...] Encounters Date Type Department Care Team Description 12/05/2024 Clinisync Result Encounter [facility] External Department Unsolicited Carmen Linda DO 12/05/2024 Clinisync Result Encounter [facility]OMS External Department Unsolicited Carmen Linda, 11/17/2024 10:30 AM EDT Office Visit [facility] JACKMAN [address] [address] Carmen Linda DO Cognitive dysfunction (Primary Dx); Tremor; Long-term use of high-risk medication 11/10/2024 Travel 10/13/2024 10:00 AM EDT Office Visit [facility] [address] [place] [phone] Gorge Hewitt DO S/P total right hip arthroplasty (Primary Dx) 10/13/2024 8:35 AM EDT Ancillary Procedure [facility] [address] [place] [address] 10/13/2024 Travel from Last 3 Months Family History [...] [facility] [address] [place] [address] Gorge Hewitt DO [address] [place] [address] Health Maintenance Due Date Last Done Comments CT Colonography 1950 FIT-DNA 1950 FIT 1950 FOBT 1950 Sigmoidoscopy 1950 Pneumococcal Vaccine: 65+ Ye ars (1 of 1 - PCV) 2000 Influenza Vaccine (#1) 2025 , 06/07/2022, 06/24/2021, Additional history exists Colonoscopy 12/28/2032 12/28/2022 Colorectal Cancer Screening 12/28/2032 Procedures Procedure Name Priority Date/Time Associated Diagnosis Comments MRI HEAD/BRAIN WO/W CONTR 12/05/2024 10:35 AM EDT [facility] CREATININE Routine 12/05/2024 8:26 AM EDT XR HIP 2 OR 3 VW RIGHT Routine 10/13/2024 8:31 AM EDT S/P total right hip arthroplasty from Last 3 Months Results * MRI HEAD/BRAIN WO/W CONTR (12/05/2024 10:35 AM EDT) Anatomical Region Laterality Modality Radiographic Lindsay ging 12/05/2024 10:3 5 AM EDT Narrative 12/05/2024 10:37 [place] [address] Magnetic Resonance Report Signed Patient: RUPERTO POOLE MR#: [id number] : 1950 Acct:[id number] Age/Sex: 73 / M ADM Date: 12/05/24 Loc: LAB Attending Dr: Carmen Linda D.O. Ordering Physician: Carmen Linda D.O. Date of Service: 12/05/24 Procedure(s): MR head/brain wo/w con Accession Number(s): [id number] cc: Regina Hammer M.D.; Carmen Linda D.O. [place] [id number] Patient Name: RUPERTO POOLE MRN: [id number] date: 1950 Sex: M Assigned Patient Location: LAB Current Patient Location: LAB Accession/Order Number: [id number] Exam Date: 12/05/2024 10:30 Report Date: 12/05/2024 10:35 At the request of: CARMEN LINDA DO Procedure: MR head/brain wo/w con MR head/brain wo/w con 12/05/2024 10:01 AM SIGN AND SYMPTOMS: Cognitive Dysfunction, Tremor PROTOCOL: Multiplanar multisequence MR images of the brain were obtained with and without IV contrast CONTRAST: 20 mL of intravenous Dotarem COMPARISON: None. FINDINGS: Extra axial spaces: There is age-related fluid collection is Hemorrhage: None. Ventricular system: Within normal limits. Basal cisterns: Within normal limits and not effaced. Cerebral parenchyma: T2 and FLAIR hyperintense signal is noted in the periventricular and subcortical white matter. No abnormal postcontrast enhancement. Midline shift: None.. Cerebellum: Within normal limits. Brainstem: Within normal limits. OTHER: Calvarium: Normal marrow signal. Vascular system: Satisfactory flow voids within the anterior and posterior circulation. Visualized Paranasal sinuses: Within normal limits. Visualized Orbits: Within normal limits. Visualized upper cervical spine: Within normal limits. Sella and skull base: Within normal limits. MR/MR head/brain wo/w con IMPRESSION: No acute intracranial pathology or abnormal postcontrast enhancement. Chronic age-related changes are noted above. Impression dictated by: Eloy Barnard M.D. 12/05/2024 10:35 AM Dictation Location: [place] [address] Electronically authenticated by: [id number] Y Date: 12/05/2024 10:35 Dictated By: Eloy Barnard M.D. Signed By: 12/05/24 1037 DD/ 1035 TD/TT: Regulatory Analyst: Procedure Note Radiology, Radiologist, - 12/05/2024 [place] [address] Magnetic Resonance Report Signed Patient: RUPERTO POOLE WMR#: [id number] : 1950cct:[id number] Age/Sex: 73 / MADM Date: 12/05/24 Loc: LAB Attending Dr: Carmen Linda D.O. Ordering Physician: Carmen Linda D.O. Date of Service: 12/05/24 Procedure(s): MR head/brain wo/w con Accession Number(s): [id number] cc: Regina Hammer M.D.; Carmen Linda D.O. The [place] [address] Patient Name: RUPERTO POOLE MRN: [id number] date: 1950 Sex: M Assigned Patient Location: LAB Current Patient Location: LAB Accession/Order Number: [id number] Exam Date: 12/05/2024 10:30 Report Date: 12/05/2024 10:35 At the request of: CARMEN LINDA DO Procedure: MR head/brain wo/w con MR head/brain wo/w con 12/05/2024 10:01 AM SIGN AND SYMPTOMS: Cognitive Dysfunction, Tremor PROTOCOL: Multiplanar multisequence MR images of the brain were obtainedwith and without IV contrast CONTRAST: 20 mL of intravenous Dotarem COMPARISON: None. FINDINGS: Extra axial spaces: There is age-related fluid collection is Hemorrhage: None. Ventricular system: Within normal limits. Basal cisterns: Within normal limits and not effaced. Cerebral parenchyma: T2 and FLAIR hyperintense signal is noted in the periventricular and subcortical white matter. No abnormal postcontrast enhancement. Midline shift: None.. Cerebellum: Within normal limits. Brainstem: Within normal limits. OTHER: Calvarium: Normal marrow signal. Vascular system: Satisfactory flow voids within the anterior and posterior circulation. Visualized Paranasal sinuses: Within normal limits. Visualized Orbits: Within normal limits. Visualized upper cervical spine: Within normal limits. Sella and skull base: Within normal limits. MR/MR head/brain wo/w con IMPRESSION: No acute intracranial pathology or abnormal postcontrast enhancement. Chronic age-related changes are noted above. Impression dictated by: Eloy Barnard M.D. 12/05/2024 10:35 AM Dictation Location: [place] [address] Electronically authenticated by: [id number] Y Date: 0:35 Dictated By: Eloy Barnard M.D. Signed By:12/05/24 1037 DD/ 1035 TD/TT: Regulatory Analyst: Carmen Linda DO IMG XR PROCEDURES Final R esult * [facility] CREATININE (12/05/2024 8:26 AM EDT) CREATININE 1.03 0.70 - 1.30 mg/dL TB[facility] TBH EGFR-AF JORDANIAN >60 >=60 mL/min/1.7 3m 2 TBH TBH EGFR-NON AF JORDANIAN >60 >=60 mL/min/1.7 3m 2 [facility] 12/05/2024 8:26 AM EDT 12/05/2024 8:26 AM EDT Narrative [facility] - 12/05/2024 8:51 AM EDT Carmen Linda DO [facility] Final Res ult [facility] TB * XR hip right 2 or 3 [...] of fracture or other osseous abnormality. us oGrge Hewitt DO IMG XR PROCEDURES Final Result from Last 3 Months Insurance MEDICARE [place] [facility] [place] [address] Care Teams Training Lead Relationship Specialty Start Date End Date Regina Hammer MD [address] [facility] [place] [phone] PCP - General Family Medicine 05/24/23
--- OUTSIDE RECORDS SUMMARY | 2025-01-12 11:29 | XMS_ITS | Clinical Summary ---
Author Organization [employer] tem Address [id number] [address] [place] [address] Care Team Providers Care Director Of Strategic Partnerships Name Role Phone Regina Hammer MD Primary Care Provider [phone] Allergies Active Allergy Reactions Criticality Noted Date Comments Codeine Nausea 10/27/2022 Prochlorperazine 10/27/2022 Family history of severe reaction Oxycodone-Acetaminophen Nausea And Vomiting 10/27/2022 Can take [place] or hydrocodone without issue Penicillins Fever 10/27/2022 [...] Health Maintenance Insurance MEDICARE COMMERCIAL Care Teams Director Of Strategic Partnerships Relationship Specialty Start Date End Date Regina Hammer MD [address] [place] [address] PCP - General 09/17/17
--- OUTSIDE RECORDS SUMMARY | 2025-01-12 11:29 | XMS_ITS | Encounter Summary ---
Author Organization [facility] Address [address] [facility] [place] [address] Care Team Providers Care Pathology Manager Name Role Phone Regina Hammer MD Primary Care Provider [phone] Encounter Details Date Type Department Care Team (Late st Contact Info) Description 02/18/2024 Clinisync Result Encounter [facility] External Department Unsolicited Gorge Hewitt DO [address] [place] [address] Social History Tobacco Use Types Packs/Day Years [...] [facility] [address] [place] [facility] [place] [address] Gorge Hewitt DO [address] [place] [address] documented as of this encounter Procedures Procedure [...] on filedocumented in this encounter Care Teams Pathology Manager Relationship Specialty [place] [address] [place] [phone] PCP - General Family Medicine 05/24/23 documented as of this encounter
--- OUTSIDE RECORDS SUMMARY | 2025-01-12 11:29 | XMS_ITS | Encounter Summary ---
Author Organization [facility] Address [address] [place] [place] [address] Care Team Providers Care Sticker Machine Operator Name Role Phone Regina Hammer MD Primary Care Provider [phone] Encounter Details Date Type Department Care Team (Late st Contact Info) Description 06/21/2023 External Result Encounter [facility] External Department Unsolicited Sukhdeep Crockett, DO [address] [place] [address] Social History Tobacco Use Types Packs/Day Years [...] ORTHO [address] [place] [phone] Gorge Hewitt, DO [address] [place] [address] documented as of this encounter Procedures Procedure [...] Eloy Barnard M.D.06/21/2023 5:08 PM Dictation Location: [place] [address] Transcribed By: [facility] 06/21/238 Dictated By: Eloy Barnard II, MD 06/21/23 1646 Signed By: <Electronically signed by Eloy Barnard II, MD in [place]> 06/21/23 1708 Narrative 06/22/2023 9:20 AM EST [facility] [address] [place] [address] [place] [address] MRI Report Signed Patient: Ruperto Poole MR#: [id number] : 1950 Acct:[id number] Age/Sex: 72 / M ADM Date: 06/21/23 Loc: MR Room: Type: [facility] Attending Dr: Sukhdeep Crockett DO Copies to: [...] con Procedure Note Radiology, Radiologist, - 06/22/2023 [facility] [address] [place] [address] [place] [address] MRI Report Signed Patient: Ruperto Poole WMR#: [id number] : 1950cct:[id number] Age/Sex: 72 / MADM Date: 06/21/23 Loc: Room:Type: [facility] Attending Dr: Sukhdeep Crockett DO Copies to: [...] Eloy Barnard M.D.06/21/2023 5:08 PM Dictation Location: [place] [address] Transcribed By: [facility] 06/21/23 1708 Dictated By: Eloy Barnard II, MD 06/21/23 1646 Signed By: <Electronically signed by Eloy Barnard II, MD inOV> 06/21/23 1708 Sukhdeep Crockett DO IMG MRI PROCEDURES Final Re sult documented in this encounter Visit Diagnoses Not on filedocumented in this encounter Care Teams Sticker Machine Operator Relationship Specialty Start Date End Date Regina Hammer MD [facility] [place] [phone] PCP - General Family Medicine 05/24/23 documented as of this encounter
--- OUTSIDE RECORDS SUMMARY | 2025-01-12 11:29 | XMS_ITS | Encounter Summary ---
Author Organization [facility] Address [address] [place] [address] Care Team Providers Care Videotape Operator Name Role Phone Regina Hammer MD Primary Care Provider [phone] Encounter Details Date Type Department Care Team (Late st Contact Info) Description 06/22/2023 External Result Encounter [facility] External Department Unsolicited Sukhdeep Crockett, DO [address] [place] [address] Social History Tobacco Use Types Packs/Day Years [...] [facility] [address] [place] [phone] Gorge Hewitt, DO [address] [place] [address] documented as of this encounter Procedures Procedure [...] Mayo Sheikh M.D.06/22/2023 3:21 PM Dictation Location: [place] [address] Tech: Yen Estrella Transcribed By: ESE 06/22/23 1521 Dictated By: Mayo Sheikh MD 06/22/23 1520 Signed By: <Electronically signed by MD Mayo Sheikh in [place]> 06/22/23 1521 Narrative 06/22/2023 3:49 PM EST [facility] [place] [address] Ultrasound Report Signed Patient: Ruperto Poole MR#: [id number] : 1950 Acct:[id number] Age/Sex: 72 / M ADM Date: 06/21/23 Loc: MR Room: Type: [facility] Attending Dr: Sukhdeep Crockett DO Ordering [...] Procedure Note Mayo Sheikh MD - 06/22/2023 [facility] [place] [address] Ultrasound Report Signed Patient: Ruperto Poole WMR#: [id number] : 1Acct:[id number] Age/Sex: 72 / MADM Date: 06/21/23 Loc: Room:Type: [facility] Attending Dr: Sukhdeep Crockett DO Ordering [...] PATENT WITH ANTEGRADE FLOW. Impression dictated by: Myao Sheikh M.D.06/22/2023 3:21 PM Dictation Location: [facility]04 Tech: Yengeorgie Gunner Transcribed By: ESE 06/22/231520 Dictated By: Mayo Sheikh MD 06/22/231519 Signed By: <Electronically signed by MD Mayo Sheikh in [place]> 06/22/23 152 us Sukhdeep W Murcek DO IMG US PROCEDURES Final Res ult documented in this encounter Visit Diagnoses Not on filedocumented in this encounter Care Teams Videotape Operator Relationship Specialty Start Date End Date Regina Hammer MD [address] [place] [phone] PCP - General Family Medicine 05/24/23 documented as of this encounter
[2025-01-14 09:19] LABS: Blood Urea Nitrogen 21.0 mg/dL (7.0-18.0); Calcium 9.1 mg/dL (8.5-10.1); Carbon Dioxide 27.8 mmol/L (21.0-32.0); Chloride 104 mmol/L (98-107); Estimated GFR (African America >60 (>=60 mL/min/1.73m^2); Estimated GFR (Non-African Ame >60 (>=60 mL/min/1.73m^2); Sodium 142 mmol/L (136-145); Uric Acid 5.6 mg/dL (3.5-7.2)
[2025-01-14 09:35] LABS: Calcium 24 Hour Urine 130.2 mg/24hr (100.0-300.0); Creatinine 24 Hour Urine 1715.98 mg/24 hr (1000.0-2000.00); Total Volume 24 Hour Urine 1400 mL/24hr
[2025-01-14 11:54] LABS: BOX Test Date Sent 7/9/25; BOX Test Reference Lab Cleveland Clinic; BOX Test Sent Out Yes
[2025-01-15 09:10] LABS: Uric Acid, Urine 33.4 mg/dL (Not Estab.); Uric Acid,Urine 24hr 467.6 mg/24 hr (136.1-771.1)
[2025-01-15 11:09] LABS: Magnesium, U 11.2 mg/dL (Not Estab.); Magnesium,Urine 24hr 156.8 mg/24 hr (12.0-293.0); Phosphorus, Urine 65.7 mg/dL (Not Estab.); Phosphorus,Urine 24h 920 mg/24 hr (390-1425)
[2025-01-16 07:09] LABS: Citric Acid, U, 24hr 486 mg/24 hr (320-1240); Citric Acid, Urine 347 mg/L (Undefined)
== END 2025-01-14 08:41 | disposition home or self-care (01) ==
LOC: LAB 08:40
PROVIDERS: Family Provider Optometrist; PCP Family Medicine; Visit Provider Urology
DX: N20.0 Calculus of kidney (principal)
CPT/HCPCS: 36415; 82310; 82340; 82374; 82435; 82507; 82565; 82570; 83735; 83945; 83970; 84100; 84105; 84295; 84300; 84520; 84550; 84560

== ENCOUNTER 2025-06-03 07:32 | Outpatient (OUT) | payer MEDICARE, OTHER, SELFPAY ==
--- OUTSIDE RECORDS SUMMARY | 2025-06-03 07:35 | XMS_ITS | CCD ---
Author Organization [facility] Care Team Providers Care Circus Hand Name Role Phone SERGIO CONNELL Primary Care [...] Provider MD Sergio Connell Primary Care Provider Sukhdeep [...] Attending Unavailable Pocos, Bunny Puentes Admitting Unavailable Sergio Connell MD Primary Care Provider Lupe CAMACHO Attending Unavailable CAMACHO, Lupe R Attending Unavailable CAMACHO, Lupe R Attending Unavailable Pocos, Bunny Puentes Attending Unavailable Pocos, Bunny Puentes Referring Unavailable Pocos, Bunny Puentes Admitting Unavailable Sergio Connell MD Primary Care Provider Sergio Connell MD Primary Care Provider [phone] Sergio Connell MD Attending Provider [phone] Lupe Camacho MD Attending Provider [phone] Carmen Valle DO Attending Provider Jhonny PhD, Сергей Attending Provider POCOS, BUNNY Puentes Referring Unavailable POCOS, BUNNY Puentes Attending Unavailable POCOS, BUNNY Puentes Referring Unavailable POCOS, BUNNY Puentes Referring Unavailable CARMEN VALLE Attending Unavailable CONNELL, SERGIO Referring Unavailable POCOS, BUNNY Puentes Referring Unavailable POCOS, BUNNY Puentes Attending Unavailable POCOS, BUNNY Puentes Attending Unavailable POCOS, BUNNY Puentes Referring Unavailable POCOS, BUNNY Puentes Attending Unavailable POCOS, BUNNY Puentes Attending Unavailable CAMACHO, Lupe R Attending Unavailable CAMACHO, Lupe R Attending Unavailable CAMACHO, Lupe R Attending Unavailable CAMACHO, Lupe R Admitting Unavailable Sergio Connell MD Primary Care Provider Allergies Allergy ClassificationReported Allergen(s)Allergy TypeDate of OnsetReaction(s) Facility (8 sources)Acetaminophen / oxyCODONE; Translations: [acetaminophen-oxycodone] Drug AllergyNausea and vomiting (disorder)[facility] comment on above:Can take [place] or hydrocodone without issue (20 sources)Codeine; Translations: [codeine]Drug Tgcjkdu91-75-8009Xrwacn present (context-dependent category), Nausea Only, UnknownExec[facility] ([facility] sources)Penicillins; Translations: [penicillins]Drug rgacakh41-69-3815rozcb [facility] (20 sources)Prochlorperazine; Translations: [prochlorperazine]Drug Allergy 37-19-5169ji states family hx he has never had. sister x2 severe reaction muscle rigidity, UnknownExec[facility] of [facility] (1 source)Acetaminophen / oxyCODONEDrug AllergyThe [facility] (1 source)CodeineDrug Zuyltwg22-20-2995Pfi [facility] Rep[facility] (1 source)ProchlorperazineDrug Ztmnrxq09-40-9625Cdx [facility] Repository (11 sources)Penicillin GDrug AllergyDeaconess Cross Pointe CenterInfratelIBS Software Services (P) Other (8 sources)Substance with penicillin structure and antibacterial mechanism of action (substance)Drug fyqimwj17-55-4435KxvzteqPlkgx [place] Other (8 sources)Compazine *ANTIPSYCHOTICS/ANTIMANIC AGENTS*Propensity to adverse ldpazzixm53-63-4346CsuvztnNjhvi [place] Other (2 sources)patient allergy list reviewed by nurse or physiciaPropensity to adverse zwzmbuhht56-11-5618Xfouaag:[facility] Other (2 sources)Allergies ReconciledPropensity to adverse reactionsDeaconess Cross Pointe CenterMalhar Other (1 source)CodeineDrug Jdjbsmz42-64-6504PqmdsuurwBlanchard Valley Health System Repository (1 source)PenicillinDrug Dcimeso24-31-3739FrubljwzhBlanchard Valley Health System Repository (1 source)ProchlorperazineDrug Zmdwjtz82-43-8219YeavjehdyBlanchard Valley Health System Repository (1 source)Unable to AssessDrug allergy (disorder)61-62-9990ShrfrwfjjBlanchard Valley Health System Repository (4 sources)Acetaminophen / oxyCODONE; Translations: [Percocet 5/325]Drug Allergy [facility] Repository (17 sources)Acetaminophen / oxyCODONEDrug Ylmihap55-50-8777TA intoleranceNOMS Healthcare Medications Current Medications MedicationDrug Class(es)DatesSig (Normalized)Sig (Original)acetaminophen 325 mg / HYDROcodone bitartrate 5 mg oral tablet (1 source)Opioid AgonistStart: 93-31-2182Hpecd 325 mg-5 mg oral tablet 1 tab(s), Oral, TID for pain, 20 tab(s), Refill(s) 0, [facility]/pharmacy #[id number], 177.8, cm, 06/07/21 13:24:00 EST, Height/Length Dosing, 113, kg, 06/07/21 13:24:00 EST, Weight Dosing Start Date: 06/20/21 Status: Orderedaspirin 81 mg delayed release oral tablet (13 sources)Platelet Aggregation Inhibitor, Nonsteroidal Anti-inflammatory Drug Start: 65-26-2965lqdb 1 tablet by mouth twice dailyaspirin 81 mg Oral EC Tab 81 mg = 1 tab(s), Oral, BID, # 60 tab(s), Refills(s) 0, Pharmacy: [facility]/pharmacy #[id number], 177.5, cm, 02/18/24 14:14:00 EDT, Height/Length Dosing, 111.4, kg, 02/18/24 14:14:00 EDT, Weight Dosing Start Date: 03/18/24 Status: Ordered End: 76-12-9173tngu 1 tablet by mouth once dailyaspirin 81 MG EC tablet Take 81 mg by mouth Daily 10/13/2024 Discontinued (Therapy completed)cefadroxil 500 mg oral capsule (1 source)Cephalosporin AntibacterialStart: 03-18-2024 End: 05-14-4172ryrb 1 capsule by mouth every twelve hourscefadroxil 500 mg Cap 500 mg = 1 cap(s), Oral, q12hr, X 2 day(s), # 4 cap(s), Refills(s) 0, Pharmacy: [facility]/pharmacy #[id number], 177.5, cm, 02/18/24 14:14:00 EDT, Height/Length Dosing, 111.4, kg, 02/18/24 14:14:00 EDT, Weight Dosing Start Date: 03/18/24 Stop Date: 03/20/24 Status: Orderedcelecoxib 200 mg oral capsule (2 sources)Nonsteroidal Anti-inflammatory DrugStart: 03-18-2025 End: 39-57-6571etqf 1 capsule by mouth once dailycelecoxib (CeleBREX) 200 MG capsule Indications: S/P total right hip arthroplasty , History of lefthip replacement Take 1 capsule (200 mg) by mouth Daily 30 capsule 2 03/18/2025 04/17/2025 Activecetirizine hydrochloride 10 mg oral tablet (6 sources)Histamine-1 Receptor Antagonisttake 1 tablet by mouth once daily cetirizine (ZyrTEC) 10 MG tablet Take 10 mg by mouth Daily XazgdpQaO36 (8 sources)Start: 87-42-0481uadx 300 mg by mouth once mzrxeVfL01 300 mg, Oral, Daily, Refills(s) 0, Prophylaxis Start Date: 04/21/21 Status: Ordered Repeat num jaja: 1Start: 07-54-3048xnzj 300 mg by mouth once hptvqHoB64 300 mg, Oral, Daily, Refills(s) 0, Prophylaxis Start Date: 04/21/21 Status: Ordereddocusate sodium 100 mg oral capsule (2 sources)Start: 86-28-1060fpyj 1 capsule by mouth twice daily as needed for constipationColace 100 mg Cap 100 mg = 1 cap(s), Oral, BID, PRN for constipation, # 40 cap(s), Refills(s) 0, Pharmacy: [facility]/pharmacy #[id number], 177.5, cm, 02/18/24 14:14:00 EDT, Height/Length Dosing, 111.4, kg, 02/18/24 14:14:00 EDT, Weight Dosing Start Date: 03/18/24 Status: OrderedhydroCHLOROthiazide 25 mg oral tablet (20 sources)Thiazide DiureticStart: 01-26-2016 End: 35-97-7644snig 1 tablet by mouth in the morninghydroCHLOROthiazide (HYDRODiuril) 25 MG tablet Take 25 mg by mouth in the morning. 09/25/2022 Active loratadine 10 mg oral tablet (11 sources)take 1 tablet by mouth every twenty-four hoursClaritin 10 MG 1 tablet Orally Once a day Activeondansetron 4 mg oral tablet (6 sources)Serotonin-3 Receptor Antagonisttake 1 tablet by mouth three times daily as neededOndansetron HCl 4 MG 1 tablet Orally tid prn for 10 days Active oxyCODONE hydrochloride 5 mg oral tablet (1 source)Opioid AgonistStart: 07-93-9049zshAEUXVP 5 mg Tab 5 mg = 1 tab(s), Oral, As Directed, 1-2 po q4-6 hrs prn pain Dx: M16.11, Z96.641Duration: 7days, # 40 tab(s), Refills(s) 0, Pharmacy: [facility]/pharmacy #[id number], 177.5, cm, 02/18/24 14:14:00 EDT, Height/Length Dosing, 111.4, kg, 02/18/24 14:14:00 EDT, Weight Dosing Start Date: 03/18/24 Status: OrderedPrevagen (2 sources)Start: 31-82-1843gmul 1 ug by mouth once dailyPrevagen mcg, Oral, Daily, Refills(s) 0 Start Date: 12/03/24 Status: Ordered Repeat number: 1 rosuvastatin calcium 20 mg oral tablet (20 sources)HMG-CoA Reductase InhibitorStart: 08-16-2022 End: 04-50-0845nlpd 1 tablet by mouth in the morningrosuvastatin (Crestor) 20 MG tablet Take 20 mg by mouth in the morning. 08/16/2022 ActiveStart: 11-24-2016 take 20 mg by mouth at bedtimeCrestor 20 mg, Oral, Bedtime, Refills(s) 0, High cholesterol Start Date: 11/24/16 Status: Ordered Repeat number: 1tadalafil 5 mg oral tablet (20 sources)Phosphodiesterase 5 InhibitorStart: 11-11-1112zriz 1 tablet by mouth once dailyTadalafil 5 mg tablet Active 5 MG PO Daily June 16, 2024 1:00am Complies with drug therapyStart: 27-35-6480ymjzbbnhi (Cialis) 20 MG tablet 02/03/2024 Activetamsulosin hydrochloride 0.4 mg oral capsule (20 sources)alpha-Adrenergic BlockerStart: 61-81-6550Zxwnexynuo 0.4 mg capsule Active MG PO November 28, 2023 12:00am FreeTextSig: Orally; Note: Source Status: Taking; Provider: Ko Tapia ( ) Complies with drug therapy Start: 28-03-0028Qozcetygqk Active MG PO November 28, 2023 12:00am FreeTextSig: Orally; Note: Source Status: Taking; Provider: Ko Tapia ( ) Start: 34-68-3863xbng 1 capsule by mouth twice dailyFlomax 0.4 mg Cap 0.4 mg = 1 cap(s), Oral, BID, # 180 cap(s), Refills(s) 3, Pharmacy: [facility]/pharmacy #[id number], 178, cm, 05/29/22 9:35:00 EST, Height/Length Dosing, 102.2, kg, 05/29/22 9:35:00 EST, Weight Dosing Start Date: 11/02/22 Status: Orderedtake 1 capsule by mouth every twenty-four hours in the morningtamsulosin (Flomax) 0.4 MG 24 hr capsule Take 0.4 mg by mouth in the morning and 0.4 mg before bedtime. ActivetraMADol hydrochloride 50 mg oral tablet (1 source)Opioid AgonistStart: 06-25-2024 End: 34-50-3161asia 1 tablet by mouth every six hours for pain, then take 2 tablets by mouth every six hours for paintraMADol (Ultram) 50 MG tablet Indications: Carpal tunnel syndrome on right May take 1 tablet (50 mg) by mouth every 6 (six) hours if needed for severe pain. May also take 2 tablets (100 mg) every 6 (six) hours if needed for severe pain. Do all this for 7 days. 30 tablet 06/25/2024 07/02/2024 Activeubidecarenone 10 mg oral capsule (20 sources)take 1 capsule by mouth in the morningcoenzyme Q-10 10 MG capsule Take 10 mg by mouth in the morning. Activevitamin b6 100 mg oral tablet (5 sources)Start: 09-52-5835sijk 100 mg by mouth twice dailyVitamin B6 100 mg, Oral, BID, Refills(s) 0, Prophylaxis Start Date: 02/18/24 Status: Ordered Repeat number: 1 Completed/Discontinued Medications MedicationDrug Class(es)DatesSig (Normalized)Sig (Original)cephalexin 500 mg oral capsule (11 sources)Cephalosporin AntibacterialStart: 04-16-2024 End: 14-86-5744zuaxmtktuv (Keflex) 500 MG capsule Indications: S/P total right hip arthroplasty Take all 4 capsules one hour before the procedure. 4 capsule 04/16/2024 10/13/2024 Discontinuedlevothyroxine sodium 0.088 mg oral tablet (20 sources)l-ThyroxineStart: 11-20-2023 End: 98-58-8608Notarjepbpyrf 88 mcg tablet Discontinued 0 .ROUTE .COMPLEX 90 October 16, 2024 12:55pm October 30, 2024 4:44pm TAKE 1 TABLET ONCE DAILYStart: 08-16-2022 End: 37-77-9837rxuj 1 tablet by mouth in the morninglevothyroxine (Synthroid, Levoxyl) 88 MCG tablet Take 88 mcg by mouth in the morning. 08/16/2022 Active Start: 82-00-0286bgxv 1 tablet by mouth every twenty-four hoursLevothyroxine Sodium 88 MCG 1 tablet Orally Once a day for 90 days Aug, ActiveStart: 54-29-2423qsah 1 tablet by mouth once dailylevothyroxine 75 mcg (0.075 mg) Tab 75 mcg = 1 tab(s), Oral, Daily, Thyroid Start Date: 06/07/21 Status: Ordered Repeat number: 1Start: 78-80-3592atui 1 tablet by mouth once dailylevothyroxine 75 mcg (0.075 mg) Tab 75 mcg = 1 tab(s), Oral, Daily, Thyroid Start Date: 06/07/21 Status: OrderedmethylPREDNISolone (11 sources)CorticosteroidStart: 42-83-8976Ewoy-Medrol 80 mg Feb, 80 mg sulfamethoxazole 800 mg / trimethoprim 160 mg oral tablet (8 sources)Dihydrofolate Reductase Inhibitor Antibacterial, Sulfonamide AntimicrobialStart: 96-30-3814elsh 1 tablet by mouth every twelve hoursBactrim DS 800-160 MG 1 tablet Orally Twice a day for 10 day(s) Feb, Not-Taking Problems Active Problems Problem ClassificationProblemDateDocumented DateEpisodic/ChronicAbdominal pain (7 sources)Right flank pain; Translations: [Unspecified abdominal pain]Onset: 950791-17-7210TzryqpseKrrhsgdy reactions (16 sources)Contact dermatitis due to drugs AND/OR medicine; Translations: [Contact dermatitis and other eczemadue to drugs and medicines in contact with skin]Onset: 10-41-5432YsvhkcrkNtcejrboza associated with dizziness or vertigo (2 sources)Benign paroxysmal vertigo, bilateralEpisodicDelirium, dementia, and amnestic and other cognitive disorders (8 sources)Cognitive disorder; Translations: [Unspecified mental disorder due to known physiological condition]26-89-9085YpzmskuUoppwlgu mellitus without complication (9 sources)Other abnormal glucose; Translations: [Abnormal glucose level]Onset: 65-52-4723ZpstrwjtSwktoaldk of lipid metabolism (20 sources)Hyperlipidemia; Translations: [Hyperlipidemia, unspecified]Onset: 352709-64-0584JdtlcxxEekgkadix hypertension (20 sources)Essential (primary) hypertension; Translations: [Essential hypertension]Onset: 51-49-3359QjyplepBqugwbbfgdz of prostate (20 sources)Benign prostatic hypertrophy with outflow obstruction; Translations: [Benign prostatic hyperplasia with lower urinary tract symptoms]Onset: 35-51-7647InegycoKtatnccplamuo and screening for infectious disease (8 sources)Vaccination given; Translations: [Encounter for immunization]Episodic Malaise and fatigue (9 sources)Other fatigue; Translations: [Fatigue]Onset: 25-70-9722Wgzfzfpp Neoplasms of unspecified nature or uncertain behavior (8 sources)Neoplasm of uncertain behavior of skin; Translations: [Neoplasm of uncertain behavior of skin]EpisodicOsteoarthritis (20 sources)Osteoarthritis of knee; Translations: [Osteoarthritis of knee, unspecified]Onset: 319498-60-5315DjmeknjQhyis aftercare (2 sources)H/O: high risk medication; Translations: [Other terminal supervisor (current) drug therapy]51-94-0211OkhhxyrzJrbbl circulatory disease (3 sources)Disorder of carotid artery; Translations: [Disorder of arteries and arterioles, unspecified]66-31-3372NoqxnumYrnia circulatory disease (4 sources)Other specified symptoms and signs involving the circulatory and respiratory systems; Translations:[OTH SPEC SX SIGNS INVLV CIRC RS]Onset: 30-40-4322OdcwsfenHwffb circulatory disease (8 sources)Cardiovascular symptoms; Translations: [Other specified symptoms and signs involving the circulatory and respiratory systems]EpisodicOther circulatory disease (8 sources)Elevated blood-pressure reading without diagnosis of hypertension; Translations: [Elevated blood-pressure reading, without diagnosis of hypertension]EpisodicOther circulatory disease (2 sources)Carotid bruit; Translations: [Other specified symptoms and signs involving the circulatory and respiratory systems]10-63-1514HojfcxqjXmmyl connective tissue disease (8 sources)History of total hip arthroplasty; Translations: [Presence of right artificial hip joint]55-96-3689VgthabyRwtfb connective tissue disease (2 sources)History of repair of hip joint; Translations: [Presence of left artificial hip joint]49-00-3767TngqxfoPfieq connective tissue disease (8 sources)Pain in left lower limb; Translations: [Pain in left leg]Episodic Other diseases of kidney and ureters (1 source)Urinary tract obstruction; Translations: [Other obstructive and reflux uropathy]Onset: 92-83-4273ThgwbppfVrhnc lower respiratory disease (1 source)Other forms of dyspneaEpisodicOther lower respiratory disease (5 sources)Nodule of lung; Translations: [Solitary pulmonary nodule]11-28-2023 EpisodicOther lower respiratory disease (1 source)Solitary pulmonary noduleEpisodicOther male genital disorders (9 sources)Male erectile dysfunction, unspecified; Translations: [Erectile dysfunction]Onset: 20-71-4670JddalhlQwccv nervous system disorders (4 sources)Carpal tunnel syndrome of right wrist; Translations: [Carpal tunnel syndrome, right upper limb]25-75-3638FjkcqysGsuzt nervous system disorders (4 sources)Tremor; Translations: [Tremor, unspecified]87-46-6188MbnjoamuUzopv nutritional; endocrine; and metabolic disorders (8 sources)Obese class I; Translations: [Body mass index (BMI) 34.0-34.9, adult] ChronicOther nutritional; endocrine; and metabolic disorders (16 sources)Obese class II; Translations: [Body mass index (BMI) 36.0-36.9, adult]Onset: 46-62-7791LcrlkurEapun nutritional; endocrine; and metabolic disorders (8 sources)Obesity; Translations: [Obesity, unspecified]Onset: 21-37-6138Yfhwkgf Other upper respiratory disease (8 sources)Seasonal allergic rhinitis; Translations: [Other seasonal allergic rhinitis]Onset: 10-54-9951XjhmrxyMbmpi upper respiratory disease (8 sources)Allergic rhinitis; Translations: [Allergic rhinitis, cause unspecified]Onset: 03-03-6150GrhzlhzYvnjn upper respiratory infections (8 sources)Chronic sinusitis; Translations: [Chronic sinusitis, unspecified] ChronicResidual codes; unclassified (8 sources)Requires influenza virus vaccination; Translations: [Need for prophylactic vaccination and inoculation, Influenza]EpisodicResidual codes; unclassified (2 sources)Memory impairment; Translations: [Other amnesia]61-18-7254Fnuszxlp Residual codes; unclassified (3 sources)Amnesia; Translations: [Other amnesia]78-72-5371SmkpqgxlSfajitcm codes; unclassified (3 sources)Family history of dementia; Translations: [Family history of other mental and behavioral disorders]28-66-0063TkghhsygIrtmbpf detachments; defects; vascular occlusion; and retinopathy (2 sources)Hemorrhage of left retina; Translations: [Retinal hemorrhage, left eye]42-89-2144VajjqmfUqghkzp disorders (20 sources)Hypothyroidism; Translations: [Hypothyroidism, unspecified]Onset: 776298-42-7569JwjhwuaKwzdcyhxl cerebral ischemia (8 sources)Transient global amnesia; 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] Onset: 21-99-5766VndcbnwUppsubwnadva (2 sources)CONTACT W/AND (SUSP) EXPOS COVID-19; Translations: [CONTACT W/AND (SUSP) EXPOS COVID-19]Onset: 43-34-0173Lgihfcgjhlqu (1 source)Other specified hearing loss, bilateral; Translations: [Other specified hearing loss, bilateral]Onset: 37-35-2146Gfccz infection (9 sources)COVID-19; Translations: [Disease caused by 2019-nCoV]Onset: 11-25-2021 Past or Other Problems Problem ClassificationProblemDateDocumented DateEpisodic/ChronicCalculus of urinary tract (20 sources)Kidney stone; Translations: [Calculus of kidney]Onset: 07-10-2014 EpisodicComment on above:in 2012Genitourinary symptoms and ill-defined conditions (20 sources)Microscopic hematuria; Translations: [Nocturia]Onset: 05-27-2023 45-46-4735QzgaydxoBveva non-epithelial cancer of skin (20 sources)History of malignant neoplasm of skin; Translations: [Personal history of other malignant neoplasm of skin]Onset: 506063-97-1017Lwtjpgtc Other non-traumatic joint disorders (8 sources)Shoulder joint pain; Translations: [Pain in unspecified shoulder] Onset: 96-73-2749MhuouhvrTqbfu nutritional; endocrine; and metabolic disorders (20 sources)History of hypercholesterolemia; Translations: [Personal history of other endocrine, nutritional and metabolic disease]Onset: EpisodicOther nutritional; endocrine; and metabolic disorders (8 sources)Abnormal weight gain; Translations: [Abnormal weight gain]Onset: 18-29-9869DjdxhuwhCwuoz screening for suspected conditions (not mental disorders or infectious disease) (20 sources)Raised prostate specific antigen; Translations: [Elevated prostate specific antigen [PSA]]Onset: 070110-32-4787PffheleyWriyw upper respiratory infections (20 sources)Acute maxillary sinusitis; Translations: [Acute recurrent maxillary sinusitis]Onset: 84-45-7665TctwungdAzjl and subcutaneous tissue infections (8 sources)Erythrasma; Translations: [Erythrasma]Onset: 69-51-9519Cjnmdmox Unclassified (1 source)CONTACT W/AND (SUSP) EXPOS COVID-19; Translations: [CONTACT W/AND (SUSP) EXPOS COVID-19]Onset: 11-23-2021 Results Test NameValueInterpretationReference RangeFacilityReminderson 04-01-2025 RemindersReminders From: Ketty Hernandez To: EU - Pending Results; Sent: 12/03/2024 12:13:48 EDT Show up: 12/29/2024 12:13:00 EDT Subject: metabolic work up Due Date/Time: 01/02/2025 12:13:00 EDT Reminder/Recall [facility]- Metabolic work up done in December, Order given to pt Dr. Camacho wants to review results himself, and pt to be called. No results at [facility]. Called and spoke with the patient. He still has not picked up the jug for collecting urine yet. He says he will try to get that done soon. Pt just came in and stated he has picked up the jug today and will get that all done. Sent to provider.[facility] HospitalXR Pelvis AP and Hip - bilateral GE 2 Viewson 64-85-5097Xcvjvod Result: Xrays taken in the office today saved to the permanent record, 4 views including AP pelvis and bilateral laterals of the hips, show stable position and alignment of the JAZIEL prostheses. No sign of loosening, fracture or catastrophic wear. Limb lengths are appropriate.[facility] HealthcareRadiology Study observation (narrative)[facility]24 hour urine sodium measurement (moles/time)Ordered By: Lupe Camacho on 89-73-8822Resohv (24H U) [Moles/Time]210 mmol/83x85-235YbwdvvyrpBlanchard Valley Health System24 hour urine uric acid measurement (mass/time)Ordered By: Lupe Camacho on 01-14-2025 Urate (24H U) [Mass/Time]467.6 mg/24 hr136.1-771.1FAdams County HospitalComment on above:Performed at: [facility] Lab[address] [id number] Director: Javier Rouse PhD, Phone: [phone] Calcium [Mass/time] in 24 hour UrineOrdered By: Lupe Camacho on 01-14-2025 Calcium (24H U) [Mass/Time]130.2 mg/95ky006.0-300.0[facility] SystemCalcium [Mass/volume] in 24 hour UrineOrdered By: Lupe Camacho on 58-94-1539Ofeiycm (24H U) [Mass/Vol]9.3 mg/dL5.1-21.0[facility] Health SystemEstimated glomerular filtration rate (GFR) non- AmericanOrdered By: Lupe Camacho on 96-92-2528MYO/1.73 sq M.predicted among non-blacks MDRD (S/P/Bld) [Vol rate/Area]mL/min/{1.73_m2}>=60 mL/min/1.73m 2FAdams County HospitalLaboratory - Chemistry and Chemistry - challengeOrdered By: Lupe Camacho on 69-18-9444Aspwegt [Mass/Vol]9.1 mg/dL8.5-10.1FAdams County HospitalChloride [Moles/Vol]104 mmol/M16-074QfmcxekypBlanchard Valley Health SystemCO2 [Moles/Vol]27.8 mmol/L21.0-32.0[facility] SystemCreatinine [Mass/Vol]1.13 mg/dL0.70-1.30[facility] GFR/1.73 sq M.predicted MDRD (S/P/Bld) [Vol rate/Area]mL/min/{1.73_m2}>=60 mL/min/1.73m 2FAvita Health Systemodium [Moles/Vol]142 mmol/L 136-145Bl[facility] Health SystemUrate [Mass/Vol]5.6 mg/dL3.5-7.2 [facility] SystemUrea nitrogen [Mass/Vol]21.0 mg/dLHigh7.0-18.0 [facility] Hospitalodium (U) [Moles/Vol]150 mmol/RXkmd12-39 [facility] SystemNo Panel InformationOrdered By: Lupe Camacho on 17-54-1010Vfrutytzpe Level2.9 mg/dL2.6-4.7FAdams County Hospital Urine Creatinine 24 Lcxo0765.98 mg/24 ou3171.0-2000.00[facility] SystemUrine Random Jnbhvmxqdb677.57 mg/dL20.00-300.00[facility] SystemUrine uric acid measurement (mass/volume)Ordered By: Lupe Camacho on 59-06-7656Fsjdv (U) [Mass/Vol]33.4 mg/dLNot Estab.[facility] SystemUrine volume measurementOrdered By: Lupe Camacho on 03-71-2790Gqsshypr volume (U)1400 mL/24hOhioHealth Arthur G.H. Bing, MD, Cancer CenterEstimated glomerular filtration rate (GFR) non- Americanon 40-15-1000DIY/1.73 sq M.predicted among non-blacks MDRD (S/P/Bld) [Vol rate/Area]mL/min/{1.73_m2}>=60 mL/min/1.73m 2FAdams County HospitalLaboratory - Chemistry and Chemistry - challengeon 32-75-0168Bjdghsaxek [Mass/Vol]1.03 mg/dL0.70-1.30[facility] SystemGFR/1.73 sq M.predicted MDRD (S/P/Bld) [Vol rate/Area] mL/min/{1.73_m2}>=60 mL/min/1.73m [address] [place], [place] [address]MRI HEAD/BRAIN WO/W CONTRon 85-52-4830Uva[address] [address] Magnetic Resonance Report Signed Patient: GERRY LAY MR#: [id number] : 1950 Acct:[id number] Age/Sex: 73 / M ADM Date: 12/05/24 Loc: LAB Attending Dr: Carmen Valle D.O. Ordering Physician: Carmen Valle D.O. Date of Service: 12/05/24 Procedure(s): MR head/brain wo/w con Accession Number(s): [id number] cc: Sergio Connell M.D.; Carmen Valle D.O. [address] [address] Patient Name: GERRY LAY MRN: [id number] date: 1950 Sex: M Assigned Patient Location: LAB Current Patient Location: LAB Accession/Order Number: [id number] Exam Date: 12/05/2024 10:30 Report Date: 12/05/2024 10:35 At the request of: CARMEN VALLE DO Procedure: MR head/brain wo/w con MR [...] Barnard M.D. 12/05/2024 10:35 AM Dictation Location: [place] [address] Electronically authenticated by: [id number] Y Date: 12/05/2024 10:35 Dictated By: Eloy Barnard M.D. Signed By: 12/05/24 1037 DD/ 1035 TD/TT: Field Representative/Health Education:TBHRadiology, Radiologist, - 12/05/2024 [place] [address] Magnetic Resonance Report Signed Patient: GERRY LAY MR#: [id number] : 1950 Acct:[id number] Age/Sex: 73 / M ADM Date: 12/05/24 Loc: LAB Attending Dr: Carmen Valle D.O. Ordering Physician: Carmen Valle D.O. Date of Service: 12/05/24 Procedure(s): MR head/brain wo/w con Accession Number(s): [id number] cc: Sergio Connell M.D.; Carmen Valle D.O. The [place] [address] Patient Name: GERRY LAY MRN: [id number] date: 1950 Sex: M Assigned Patient Location: LAB Current Patient Location: LAB Accession/Order Number: [id number] Exam Date: 12/05/2024 10:30 Report Date: 12/05/2024 10:35 At the request of: CARMEN VALLE DO Procedure: MR head/brain wo/w con MR [...] Barnard M.D. 12/05/2024 10:35 AM Dictation Location: [place] [address] Electronically authenticated by: [id number] Y Date: 12/05/2024 10:35 Dictated By: Eloy Barnard M.D. Signed By: 12/05/24 1037 DD/ 1035 TD/TT: Field Representative/Health Education: [facility] HealthRadiology Study observation (narrative)[facility] HealthMRI HEAD/BRAIN WO/W CONTROrdered By: Radiologist Radiology on [id number] Healthcare Work Phone: tbh CREATININEon 54-10-6126Cfslzbophv [Mass/Vol]1.03 mg/dL0.70 - 1.30 mg/dLNOMA HealthcareGFR/1.73 sq M.predicted CKD-EPI (S/P/Bld) [Vol rate/Area]>60>=60 mL/min/1.73m 2NOMS HealthcareTBH EGFR-NON AF LUXEMBOURGER>60 >=60 mL/min/1.73m 2NOMS HealthcareCLINISYNCNOMS HealthcareAmbulatory Visit Summaryon 59-05-0452Faewesvvmt Visit SummaryAmbulatory Visit Summary GERRY LAY :1950 Visit Date:12/03/2024 Ambulatory Visit Instructions Your Diagnosis Elevated PSA BPH with urinary obstruction Kidney stone Right flank pain Erectile dysfunction Your Care Team Attending Physician - Lupe CAMACHO MD Primary Care Physician - SERGIO CONNELL MD [...] Schedule the Following Appointments Follow Up with Lupe CAMACHO MD, URJillian When: Where: [facility] [address] , [place] [address]- Medications What How Much When Why Instructions [...] collect all of your urine for an entireday. This is sometimes called a timed urine test. It can provide more information than a single urine sample. There are many reasons to have this test. Your health care provider may order the test to check foror monitor the following conditions: ??? High blood [...] may eat and drink normally. ??? Take dlwl-lll-vkboaon and prescription medicines only as told by your health care provider. ??? Let your health care provider know about any medicines that you are taking, including bmgw-kgz-rhomdeh medicines, vitamins, herbs, and supplements. ??? Choose [...] on the next mor (more content not included)...[facility] Urology Office/Clinic Noteon 79-04-9823Haspwy[place] Office/Clinic NoteUrology Office/Clinic Note Chief Complaint 1 year with [...] that with a deep breath it makes thepain worse. Denies any visible blood in urine. [...] well developed male. Assessment/Plan Pt goes to [place] from July to October. 1. Elevated PSA [...] Gets strong urge when he pulls into hisgarage. Pt states he always voids around q2-3hr. [...] few small L renal stones similar to 06/16/21. No R sided stones. Reviewed imaging with [...] stone. Stone pain cannot be improved by changingposition, likely musculoskeletal. Was given medication while in [place] that improved pain, med not available in the [place]. Has not had any pain on the L (side with stones). 5. Erectile dysfunction (N52.9: Male erectile dysfunction, unspecified) Cialis 20mg prn. Follow-up With When Contact Information Lupe CAMACHO MD, URL [facility] [address], [place] [address]- Additional Instructions: Follow up depending on metabolic workup results Patient Education 24-Hour Urine Collection I, Thania Sepulveda, personally scribed for Dr. Camacho on 12/03/2024 11:50:16. . Documentation recorded by the scribe, Thania Sepulveda, accurately reflects the services(s) I performed and [...] arthroscopy with partial medial (more content not included)...[facility] HospitalComment on above: Result Comment: Electronically Signed By: Lupe CAMACHO MD\.br\Date and Time Signed: 12/03/24 11:58 EDT\.br\Electronically Co-Signed By: Thania Sepulveda P\.br\Date and Time Co-Signed: 12/03/24 11:51 EDT\.br\Electronically Co-Signed By: Thania Sepulveda P\.br\Date and Time Co-Signed: 12/03/24 11:52 EDT\.br\Electronically Co-Signed By: Thania Sepulveda P\.br\Date and Time Co- Signed: 12/03/24 11:56 EDTXR Abdomen 1 Viewon [id number] Abdomen 1 ViewExam Date/Time: 12/03/2024 10:55 EDT Reason for Exam: Kidney stone Report IMPRESSION: SMALL LEFT RENAL CALCULI EXAM: XR Abdomen 1 View DATE: 12/03/2024 10:54 AM CLINICAL HISTORY: Kidney stone. Technologist Comments: Kidney stones. Pt had ct at [facility] [place] [place] 2 weeks ago showing kidney stones. Pt [...] Mark Zuniga MD Transcribed by: NICCI Technologist: [facility] CenterNo Panel Informationon 43-14-0509Dxui Prostate Specific Antigen0.65 ng/mLN/[facility] HospitalComment on above:Jocy ECLIA methodology.Prostate Specific Antigen Total2.3 ng/mL0.0-4.0[facility] Health SystemComment on above:Jocy ECLIA methodology.According to the [place] [employer], Serum PSAshould decrease and remain at undetectable levels afterradical prostatectomy. The AUA defines biochemicalrecurrence as an initial PSA value 0.2 ng/mL or greaterfollowed by a subsequent confirmatory PSA value 0.2 ng/mLor greater. Values obtained with different assay methods orkits cannot be used interchangeably. Results cannot beinterpreted as absolute evidence of the presence or absenceof malignant disease.Serum or plasma free prostate specific antigen (PSA)/total PSA ratioon 44-99-3609Jelb PSA/Total PSA [Mass fraction]28.3 %.[facility] Health SystemComment on above:The table below lists the probability of prostate cancer formen with non-suspicious CARMEN results andtotal PSA between4 and 10 ng/mL, by patient age (Lyric et al, ABBI 1998,279:1542). % Free PSA 50-64 yr 65-75 yr 0.00-10.00% 56% 55% 10.01-15.00% 24% 35% 15.01-20.00% 17% 23% 20.01-25.00% 10% 20% >25.00% 5% 9%Please note: Lyric et al did not make specific recommendations regarding the use of percent free PSA for any other population of men.Performed at: [address] [id number] Director: Javier Rouse PhD, Phone: [phone] Hip - right 3 Viewson 44-73-3018Mxobaqj Result: X-rays AP pelvis, right lateral hip , a total of 3 views with permanent images saved to the record, show well-fixed, well-aligned total hip arthroplasty bilaterally. No evidence of fracture, loosening or catastrophic wear.[facility] McDowellALL CBC WITH AUTO DIFFon 37-24-3888FMILVXEMC ABSOLUTE DQMT1AYTYCrittenton Behavioral HealthBasophils/100 WBC (Bld)0.6 %0.2 - 2.0 %[facility] HealthEosinophils/100 WBC (Bld)1.1 %0.9 - 7.0 %[facility] Erythrocyte distribution width (RBC) [Ratio]13.1 %11.0 - 15.0 %[facility] Hematocrit (Bld) [Volume fraction]46.6 %42.0 - 54.0 %[facility] HealthHemoglobin (Bld) [Mass/Vol]15.3 g/dL14.0 - 18.0 g/dLCrittenton Behavioral HealthIMMATURE GRANULOCYTES ABS AUTO0.01NOChristian HospitalImmature granulocytes/100 WBC (Bld)0.2 %0.0 - 0.5 % [facility] HealthInterpretation and review of laboratory resultsAbnormalCrittenton Behavioral HealthLYMPHOCYTES ABSOLUTE AUTO1.4NOMS [facility] - WestLymphocytes/100 WBC (Bld) 22.2 %20.5 - 60.0 %[facility] (RBC) [Entitic mass]30.9 pg25.9 - 34.0 pg NOMS HealthcareMCHC (RBC) [Mass/Vol]32.8 g/dL29.9 - 35.2 g/dLNOMA HealthcareMCV (RBC) [Entitic vol]94.1 fIMxsb12.0 - 94.0 fLNOMA HealthcareMONOCYTES ABSOLUTE AUTO0.6NOMS HealthcareMonocytes/100 WBC (Bld)9.3 %1.7 - 12.0 %[facility] NEUTROPHILS ABSOLUTE AUTO4.2NOMS HealthcareNeutrophils/100 WBC (Bld)66.6 %43.0 - 75.0 %[facility] HealthcarePlatelet mean volume (Bld) [Entitic vol]9.7 fL9.5 - 13.5 fL [facility] HealthcareTBH EO #0.1NOMS HealthcareTBH [id number] HealthcareTBH RBC4.95 [facility] HealthTBH WBC6.3NOMA HealthcareCLINISYNCNOKLAHOMA SPINE [facility] [place] [facility] HealthcareXR Hip - right 3 Viewson 98-53-8392Uykkpzmlj Study observation (narrative)[facility] Ambulatory Visit Summaryon 22-94-4109Mckmkfdqay Visit SummaryAmbulatory Visit Summary GERRY LAY :1950 Visit Date:12/29/2019 [...] What to do next Scheduled Follow-Up Appointments Sunday 8:45 AM EDT With: DOUG NATHAN, Lupe Phan Where: [facility] [address] [place] [address]- Medications What How Much When Why Instructions Changed aspirin (aspirin 81 mg Oral EC Tab) 1 Tablets By Mouth 2 times a day Changed rosuvastatin (Crestor) 20 Milligram By Mouth At bedtime Changed tamsulosin (Flomax 0.4 mg Cap) 1 Capsules By Mouth 2 times a day Pickup at [facility]/pharmacy #[id number] Unchanged docusate (Colace 100 mg [...] Milligram By Mouth Every day Pharmacy Information [facility]/pharmacy #[id number]: [address] [place], [place] [phone] Allergies Compazine (pt states family hx he [...] you for choosing us for your care. [facility] CenterUrology Office/Clinic Noteon 82-77-9576Ctktjob Office/Clinic NoteUrology Office/Clinic Note Chief Complaint 7 month f/u [...] well developed male. Assessment/Plan Pt goes to [place] from July to October. 1. Elevated PSA [...] [facility] [address], [place] [phone] Additional Instructions: 6 mos w/ PSA and KUB Patient Education Kidney Stones, Ttot-jd-Pwch Ashley Garcias, personally scribed for Dr. Camacho on 05/26/2024 [...] Tonsillectomy with adenoidectomy. M (more content not included)...[facility] HospitalComment on above:Result Comment: Electronically Signed By: Lupe CAMACHO MD\.br\Date and Time Signed: 05/26/24 09:58 EST\.br\Electronically Co-Signed By: Ashley Ho\.br\Date and Time Co-Signed: 05/26/24 09:53 EST\.br\Electronically Co-Signed By: Ashley Ho\.br\Date and Time Co-Signed: 05/26/24 09:54 ESTXR Hip - right 3 Viewson 87-12-1906Pspslla Result: Xrays taken in the office today, 3 views including AP pelvis and lateral hip of the operative side, saved to the permanent record, show stable position and alignment of the hip prosthesis. No sign of loosening, fracture or catastrophic wear.NOMS HealthcareNOMA HealthcareRadiology Study observation (narrative)NOMS HealthcareMain OR Intraoperative Recordon 03-20-2024 Main OR Intraoperative RecordMain OR Intraoperative Record IntraOp Document Type FT Summary Primary Physician: Bridgette Bunny SLATER Finalized Date/Time: 03/20/24 10:47:20 Pt. Name: GERRY LAY /Sex: 1950 Male Med Rec #: [id number] Physician: Bridgette Jarrett Financial #: [id number] Pt. Type: A Room/Bed: [place] [address] Admit/Disch: 03/18/24 05:49:12 - 03/18/24 14:50:00 Institution: [...] Regino Mast DO, David A Wilhelm CST, Verna Hi Role Performed Anesthesiologist Surgeon - Primary MASH PREPARATORY OPERATOR/SA [place]aker [place] Time In 03/18/24 08:32:00 03/18/24 08:58:00 03/18/24 08:32:00 Time Out 03/18/24 10:31:00 03/18/24 10:16:00 03/18/24 10:31:00 Procedure HIP TOTAL ROBOT HIP TOTAL ROBOT HIP TOTAL ROBOT ARTHROPLASTY(Right) ARTHROPLASTY(Right) ARTHROPLASTY(Right) Comments dr veloz supervising Last Modified By: Homar STEPHENSON, Harika Graf RN, Harika Morales RN 03/18/24 10:31:37 03/18/24 10:31:37 03/18/24 10:31:37 Entry 4 Entry 5 Entry 6 Case Attendee Homar STEPHENSON, Nohemi Bright CST, Gypsy Maldonado Role Performed Certified Substance Abuse Counselor - Primary Scrub - Primary Staff - [...] Comments: mendel spence, also in attendance. colton olearyrn complex care Protocols FT Pre-Care Text: Implements protective measures [...] Yes Time Out Regino Mast, Given Participants Pocos , Blayne Farias CST, Homar Mclaughlin RN, Maryuri Albright Sydney A, Roth CST, Ila Hebert Kendall R, Letrondo Alfons Ii F Time Out Complete 03/18/24 [...] Graf RN 03/18/24 0 (more content not included)...[facility] HospitalXR HIP 1 VIEW RIGHT + PELVISon 03-20-2024 Exam Date/Time: 03/18/2024 10:56 EDT Reason for [...] Ka,r in mGy = na DAP = naFCHRISadiology, Rudy, - 03/20/2024 Exam Date/Time: 03/18/2024 10:56 EDT [...] in mGy = na DAP = na [facility] HealthXR HIP 1 VIEW RIGHT + PELVISOrdered By: Radiologist Radiology on [id number] Lucky Pai Work Phone: XR Hip 1 View Right + Pelvison [id number] Hip 1 View Right + PelvisExam Date/Time: 03/18/2024 10:56 EDT Reason for Exam: [...] Ka,r in mGy = na DAP = naNorJwdaria Brook Lane Psychiatric CenterOperative Reporton [id number] ReportOperative Report SURGERY DATE: 03/18/2024 SUPPLY CHAIN PROGRAM MANAGER: Verna Cisneros C.F.A. PREOPERATIVE DIAGNOSIS: Right hip osteoarthritis POSTOPERATIVE DIAGNOSIS: Right hip osteoarthritis OPERATION: Right hip robotic-assisted total hip arthroplasty using Andrew, posterolateral approach ANESTHESIA: Spinal as well as fascia iliaca block ANESTHESIOLOGIST: Jeanne Arndt ESTIMATED BLOOD LOSS: 300 mL INTRAVENOUS FLUIDS: Please see operative record SPECIMEN: Bone and soft tissue DRAINS: None COMPLICATIONS: None IMPLANT: [place] Total Hip System with a size 56 [...] arthrosis. Total hip arthroplasty is done with samaritan of limb stability, alignment and length. This is done with the Andrew robotic platform. The patient did tolerate the procedure well under spinal anesthetic with fascia iliaca block. The block is requested per myself to aid in intraoperative, perioperative, and postoperative pain management. This does appear to be clinically indicated and cost effective. PROCEDURE: After informed consent is obtained, the risks, complications, reasonable expectations ofthe above procedure are discussed at length. The patient is taken to the Operating Room, placed on the operating room table in supine position. At this point, the patient is given a spinal anesthetic. The patient is placed in the left lateral decubitus position with the right hip up on the pegboardpositioner. Down leg well padded, well-padded axillary roll. The hip is sterilely prepped and draped in the usual surgical fashion at which time the site verification process is undertaken with a time-out procedure. At this point, the Kiddy platform is verified as well. The focus [...] the field. This is seated using the Kiddy robotic assist. Adequate seating is identified. The screws were placed by drilling, yas uring for depth and placed individually as described [...] dried trunnion. The hip is located with samaritan of limb stability, alignment and the length. The procedure is deemed adequate and complete. The checkpoints are removed individually. Hdpkcs-qybgyaz-sasp is utilized for the posterior capsule, piriformis, back to the greater trochanter. Irrisept soak is performed. This was lavaged away. While the soak is being performed, the pelvic array site is removed. The pins are removed. The wounds are irrigated. The hip is injected with 2gm of tranexamic acid. Posterior capsule is repaired. The Zynrelef is then injected under the abductor musculature along the posterior capsule down along the femoral neck. The fascial layer closed with #2 Quill (more content not included)...[facility] HospitalComment on above: Result Comment: Electronically Signed By: Bunny Hewitt DO\.br\Date and Time Signed: 03/19/24 07:15 EDTABO/Rhon 15-01-2870BAJ/RhPositiveInvalid Interpretation [facility] HospitalComment on above:Performed By: #### [id number] #### [facility] Laboratory [address], [place] [address]SCZ/Rh History Checkon 70-88-1597TQP/Rh History CheckVerified Hx Blood TypeNoChillicothe HospitalComment on above:Performed By: #### [id number] #### [facility] [address], [place] [address]CBULvl 41-45-0459TKEV Gel InterpNegativeNoChillicothe HospitalComment on above:Performed By: #### [id number] ####[facility] [address] [place], [place] [address]FSBGE BANKOrdered By: Lisa Ames on 11-63-5275OKH/Rh InterpPositiveInvalid Interpretation Code [facility] BB SubsectionABSC Gel InterpNegative (03/18/24 6:35 AM)[facility] BB SubsectionBlood Bank ID#on [id number]#[id number] Invalid Interpretation [facility] HospitalComment on above:Performed By: #### [id number] #### [facility] [address], [place] [address]Khprjizcb Instructionson 63-66-8444Fxjewtszw Instructions Discharge Instructions GERRY LAY :1950 Visit [...] NATHAN, Lupe Phan Where: [facility] [address] [place] [address]- New Follow Up Appointments after Discharge Follow Up with Bunny Hewitt When: 04/16/2024 02:30 PM EDT Comments: Appointment has already been scheduled. Call for any problems. Where: [address] [place] [address]- Business (1) Medications What How Much When Why Instructions Next Dose New aspirin (aspirin 81 mg Oral EC Tab) 1 Tablets By Mouth 2 times a day Pickup at [facility]/pharmacy #6177 New cefadroxil (cefadroxil 500 mg Cap) 1 Capsules By Mouth Every 12 hours Duration: 2 Days Pickup at [facility]/pharmacy #6177 New docusate (Colace 100 mg Cap) 1 Capsules By Mouth 2 times a day as needed for for constipation Pickup at [facility]/pharmacy #6177 New oxycodone (oxyCODONE 5 mg Tab) 1 Tablets By Mouth As Directed 1-2 po q4-6 hrs prn pain Dx: M16.11, Z96.641 Duration: 7days Pickup at [facility]/pharmacy #6177 Unchanged hydrochlorothiazide (hydrochlorothiazide 25 mg [...] Milligram By Mouth Every day Pharmacy Information [facility]/pharmacy #6177: [address], [place] [phone] Allergies Compazine (pt states family hx he [...] 0 DEGREE POLYETHYLENE INSERT 03/18/2024 Education Materials [place], [place] [facility] DISCHARGE INSTRUCTIONS HIP REPLACEMENT [...] light-headedness. You should not (more content not included)...[facility] Comment on above:Result Comment: Electronically Signed By: Kalina STEPHENSON, Anila Perez\.br\Date and Time Signed: 03/18/24 11:32 EDTMain OR PACU I Recordon 03-18-2024 Main OR PACU I RecordMain OR PACU I Record PACU Phase I Document Type FT Summary Primary Physician: Bunny Hewitt DO Finalized Date/Time: 03/18/24 12:29:03 Pt. Name: GERRY LAY./Sex: 1950 Male Med Rec #: [id number] Physician: Bunny Hewitt DO Financial #: [id number] Pt. Type: A Room/Bed: AS05/ Admit/Disch: 03/18/24 05:49:12 - Institution: Case Times [...] individualized perioperative plan of care The patient's rightto privacy is maintained The patient's value system, [...] with or improved from baseline levels established preoperativelyThe patient's cardiovascular status is consistent with or improved from baseline levels established preoperatively The patient's cardiovascular status is consistent with or improved from baseline levels established preoperatively The patient demonstrates and/or reports adequate pain control throughout the perioperative period The patient received appropriate medication(s), safely administered during the perioperativeperiod Acuity Level PACU I FT Entry 1 Start Time 03/18/24 10:33:00 Stop Time 03/18/24 11:36:00 Acuity Level Acuity Level I Last Modified By: Eden Avila RN 03/18/24 12:29:00 Finalized By: Eden Avila RN Document Signatures Signed By: Eden Avila RN 03/18/24 12:29[facility] HospitalMain OR PACU II Recordon [id number] OR PACU II RecordMain OR PACU II Record PACU Phase II Document Type FT Summary Primary Physician: Bunny Hewitt DO Finalized Date/Time: 03/18/24 14:53:34 Pt. Name: GERRY LAY/Sex: 1950 Male Med Rec #: [id number] Physician: Bunny Hewitt DO Financial #: [id number] Pt. Type: A Room/Bed: 05 Admit/Disch: 03/18/24 05:49:12 - 03/18/24 14:50:00 Institution: [...] and monitors body temperature Evaluates postoperative respiratory statusEvaluates postoperative cardiac status Evaluates postoperative neurological status [...] individualized perioperative plan of care The patient's rightto privacy is maintained The patient's value system, [...] with or improved from baseline levels established preoperativelyThe patient's cardiovascular status is consistent with or improved from baseline levels established preoperatively The patient's neurological status is consistent with or improved from baseline levels established preoperatively The patient demonstrates and/or reports adequate pain control throughout the perioperative period The patient received appropriate medication(s), safely administered during the perioperativeperiod Finalized By: Anila Gilman RN Document Signatures Signed By: Anila Gilman RN 03/18/24 14:53NoChillicothe HospitalMain OR Preoperative Recordon 05-17-5439Mikx OR Preoperative RecordMain OR Preoperative Record PreOp Document Type FT Summary Primary Physician: Bunny Hewitt DO Finalized Date/Time: 03/18/24 09:30:10 Pt. Name: GERRY LAY./Sex: 1950 Male Med Rec #: [id number] Physician: Bunny Hewitt DO Financial #: [id number] Pt. Type: A Room/Bed: AS11/06 Admit/Disch: 03/18/24 05:49:12 - Institution: Case Times [...] Signatures Signed By: Harika Graf RN 03/18/24 09:30NoChillicothe HospitalProceduralon 83-39-7161CpxyceyhyvOpjqcoezrl Patient: GERRY LAY Age: 73 years Sex: [...] Using maximal sterile barrier technique per current [facility] guidelines including hand hygeine, Guidance (Ultrasound used to identify anatomical landmarks, Using sterile gel and probe covers, Permanent image retained), The site was prepped with ChloraPrep. Procedure: Anesthetic Agent 35cc 0.25% Bupiv with epi, Needle was inserted without pain or parasthesia in the conscious patient, Number of attempts 1, Negative attempt at aspiration for blood, Medialand lateral spread of the anesthestic was observed, Periodic negative attempts at aspiration of blood were made as the local was injected, No pain or parathesia were elicited with injection of the anesthetic in the conscious patient, It was idetified that the correct anesthetic agent was administered to the correct site. Complications: None, The patient tolerated the procedure as expected.Normal [facility] CenterXR HIP 1 VIEW RIGHT + PELVISon 31-47-5995Ktdphrzek Study observation (narrative)NOMS HealthcareEMG 1 Extremeityon 93-43-3126JSMB HealthcareNVC 7-8 Nerveson [id number] HealthcareCT LOWER EXTREMITY W/O CONTRAST RIGHTon 02-20-2024 Exam Date/Time: 02/18/2024 10:38 EDT Reason for [...] Mark Zuniga MD Transcribed by: NICCI Technologist: FLORECITARadiology, Radiologist, - 02/20/2024 Exam Date/Time: 02/18/2024 10:38 [...] Mark Zuniga MD Transcribed by: NICCI Technologist: Plickers Lucky PaiSD LOWER EXTREMITY W/O CONTRAST RIGHTOrdered By: Radiologist Radiology on [id number] Lucky Pai Work Phone: ct Lower Extremity w/o Contrast Righton 72-45-4324HJ Lower Extremity w/o Contrast RightExam Date/Time: 02/18/2024 10:38 EDT Reason for Exam: [...] (Electronic Signature): 02/20/2024 4:43 pm Signed by: Mrak Zuniga MD Transcribed by: NICCI Technologist: JimmieMercy Health [facility] Regional Medical CenterXR Chest 2 Viewson [id number] Chest 2 ViewsExam Date/Time: 02/18/2024 10:28 EDT Reason for Exam: [...] NICCI Technologist: SAQIB Technical Comments Radiation Dose: Kar in mGy = na DAP = naNormalMercy Health Springfield Regional Medical CenterBMPon 07-69-6685Vbcnc gap [Moles/Vol]12 mmol/LNormal6-16[facility] CenterComment on above:Performed By: #### [id number] #### [facility] Laboratory [address], [place] [address]Gqfaagr [Mass/Vol]9.8 mg/dLNormal8.9-11.1FWilson [address] HospitalComment on above:Performed By: #### [id number] #### [facility] [address], [place] [address]Fcymqgmx [Moles/Vol]104 mmol/WNsxrtb384-927IxgutrMercy Health Springfield Regional Medical CenterComment on above:Performed By: #### [id number] #### [facility] [address], [place] [address]HF3 [Moles/Vol]28 mmol/VDrasvi06-42WvdxtuMercy Health [facility] Regional Medical Center Comment on above:Performed By: #### [id number] #### [facility] [address], [place] [address]Noldmddefj [Mass/Vol]1.0 mg/dLNormal0.5-1.3FWilson [address] HospitalComment on above:Performed By: #### [id number] #### [facility] Laboratory [address], [place] [address]Mpkmlpm [Mass/Vol]115 mg/wEPyiuop42-310KmrfkbMercy Health Springfield Regional Medical CenterComment on above:Performed By: #### [id number] #### [facility] Laboratory [address] [place] [address]Cwpkgpszl [Moles/Vol]3.6 mmol/LNormal3.5-5.3FWilson [address] HospitalComment on above:Performed By: #### [id number] #### [facility] [address] [place] [address] 67[address]Ixrmlr [Moles/Vol]140 mmol/CCutcvu094-428ZejocbMercy Health Springfield Regional Medical CenterComment on above:Performed By: #### [id number] #### [facility] [address] [place] [address] 82490Rpot nitrogen [Mass/Vol]25 mg/dLHigh5-21[facility] Medical CenterComment on above:Performed By: #### [id number] #### [facility] [address] [place] [address] 87336Itxn nitrogen/Creatinine [Mass ratio]25 No QjrlwBmmk12-82NislkbMercy Health Springfield Regional Medical CenterComment on above:Performed By: #### [id number] #### [facility] [address] [place] [address] 16[address]FXQ w/ Auto Diffon 72-59-0397Vsjoixvvj/100 WBC (Bld)0.7 %Normal 0.0-2.0[facility] Medical CenterComment on above:Performed By: #### [id number] #### [facility] Laboratory [address] [place] [address]Pqvogfsmi/Leukocytes Auto (Bld) [Pure # fraction]0.0 E9/LNormal 0.0-0.2FWilson Street HospitalComment on above:Performed By: #### [id number] #### [facility] [address] [place] [address]Aqqnamqbeat (Bld) [#/Vol]0.1 E9/LNormal0.0-0.5FWilson [address] HospitalComment on above:Performed By: #### [id number] #### [facility] [address] [place] [address]Jrfzhqrvzyc/100 WBC (Bld)1.2 %Normal0.0-8.0[facility] Medical CenterComment on above:Performed By: #### [id number] #### [facility] [address] [place] [address] 24558Anavvhchcqs distribution width (RBC) [Ratio]13.7 %Normal 10.9-14.2FWilson [address] HospitalComment on above:Performed By: #### [id number] #### [facility] [address] [place] [address] 017[address]Olnipryegk (Bld) [Volume fraction]47.7 %Iawvof46.7-49.0[facility] Medical CenterComment on above:Performed By: #### [id number] #### [facility] Laboratory [address] [place] [address]Jephbofqwr (Bld) [Mass/Vol]16.3 g/kSDgfmxt35.5-17.5FWilson [address] HospitalComment on above:Performed By: #### [id number] #### [facility] [address] [place] [address] 028[address]Fjasfexpgds (Bld) [#/Vol]1.3 E9/LNormal1.0-4.0[facility] CenterComment on above:Performed By: #### [id number] #### [facility] [address] [place] [address] 06[address]Cayuuxgxkjq/100 WBC (Bld)20.2 %Qpoqvy24.0-50.0[facility] Medical CenterComment on above:Performed By: #### [id number] #### [facility] [address] [place] [address] 41757XFI (RBC) [Entitic mass]32.1 wwBayrin19.0-34.0[facility] Medical CenterComment on above:Performed By: #### [id number] #### [facility] [address] [place] [address] 41697KURN (RBC) [Mass/Vol]34.0 g/gQGcenfl24.4-36.0[facility] CenterComment on above:Performed By: #### [id number] #### [facility] Laboratory [address] [place] [address] 45867UXF (RBC) [Entitic vol]94.2 hLMxbayd82.0-100.0[facility] CenterComment on above:Performed By: #### [id number] #### [facility] Laboratory [address] [place] [address] 249[address]Gfdjbfuxs (Bld) [#/Vol]0.7 E9/LNormal0.2-1.0[facility] CenterComment on above:Performed By: #### [id number] #### [facility] Laboratory [address] [place] [address] 36[address]Kiyhioboytl (Bld) [#/Vol]4.2 E9/LNormal2.0-7.5FWilson [address] HospitalComment on above:Performed By: #### [id number] #### [facility] [address] [place] [address] 10584Humwpqgjaos/100 WBC (Bld)67.4 %Ypfnqj53.0-75.0[facility] CenterComment on above:Performed By: #### [id number] #### [facility] Laboratory [address] [place] [address] 37[address]Sxhymlca mean volume (Bld) [Entitic vol]8.7 fLNormal6.4-10.8 [facility] CenterComment on above:Performed By: #### [id number] #### [facility] Laboratory [address] [place] [address] 18[address]Grylkwjlb (Bld) [#/Vol]176.0 E9/IZuefiz117.0-500.0[facility] Medical CenterComment on above:Performed By: #### [id number] #### [facility] Laboratory [address], [place] [address]VKB (Bld) [#/Vol]5.1 E12/LNormal4.3-5.9[facility] CenterComment on above:Performed By: #### [id number] #### [facility] Laboratory [address], [place] [address]GXC corrected for nucl RBC Auto (Bld) [#/Vol]6.2 E9/LNormal 4.0-11.0[facility] CenterComment on above:Performed By: #### [id number] #### [facility] Laboratory [address], [place] [address]KRBUVZWQVXdiouui By: SYSTEM SYSTEM on 13-33-2085Jlmwk gap [Moles/Vol]12 mmol/LNormal6 - 16 mEq/LRemisol ChemCalcium [Mass/Vol]9.8 mg/dL Normal8.9 - 11.1 mg/dLRemisol ChemChloride [Moles/Vol]104 mmol/OYramil265 - 111 mmol/LRemisol ChemCO2 [Moles/Vol]28 mmol/JDpvwri44 - 31 mmol/LRemisol Chem Creatinine [Mass/Vol]1.0 mg/dLNormal0.5 - 1.3 mg/dLRemisol WoeyxUCH29 mL/min/1.73 d0Qtsttx>=59mL/min/1.73 w3Awptetq ChemGlucose [Mass/Vol]115 mg/dL Vgcllb63 - 199 mg/dLRemisol ChemPotassium [Moles/Vol]3.6 mmol/LNormal3.5 - 5.3 mmol/LRemisol ChemSodium [Moles/Vol]140 mmol/MVcvrrc434 - 145 mmol/LRemisol Chem Urea nitrogen [Mass/Vol]25 mg/dLHigh5 - 21 mg/dLRemisol ChemUrea nitrogen/Creatinine [Mass ratio]25 mg/vyJwni89 - 20Remisol ChemCT LOWER EXTREMITY W/O CONTRAST RIGHTon 06-64-5087Crxtcazrx Study observation (narrative) NOM HealthcareHEMATOLOGYOrdered By: SYSTEM SYSTEM on 20-14-0719Gdzvpdiuw/100 WBC (Bld)0.7 %Normal0.0 - 2.0 %Remisol HemeBasophils/Leukocytes Auto (Bld) [Pure # fraction]0.0 E9/LNormal0.0 - 0.2 E9/LRemisol HemeEosinophils (Bld) [#/Vol]0.1 E9/LNormal0.0 - 0.5 E9/LRemisol HemeEosinophils/100 WBC (Bld)1.2 %Normal0.0 - 8.0 %Remisol HemeErythrocyte distribution width (RBC) [Ratio]13.7 %Xutand74.9 - 14.2 %Remisol HemeHematocrit (Bld) [Volume fraction]47.7 %Zpxafe83.7 - 49.0 % Remisol HemeHemoglobin (Bld) [Mass/Vol]16.3 g/vCKrxuwa79.5 - 17.5 gm/dLRemisol HemeLymphocytes (Bld) [#/Vol]1.3 E9/LNormal1.0 - 4.0 E9/LRemisol Heme Lymphocytes/100 WBC (Bld)20.2 %Fkqoyr13.0 - 50.0 %Remisol HemeMCH (RBC) [Entitic mass]32.1 blBkdnlc76.0 - 34.0 pgRemisol HemeMCHC (RBC) [Mass/Vol]34.0 g/dL Vxenru36.4 - 36.0 gm/dLRemisol HemeMCV (RBC) [Entitic vol]94.2 wEPrtybs26.0 - 100.0 fLRemisol HemeMonocytes (Bld) [#/Vol]0.7 E9/LNormal0.2 - 1.0 E9/LRemisol HemeMonocytes/100 WBC (Bld)10.5 %Normal4.0 - 14.0 %Remisol HemeNeutrophils (Bld) [#/Vol]4.2 E9/LNormal2.0 - 7.5 E9/LRemisol HemeNeutrophils/100 WBC (Bld)67.4 % Qlzfff40.0 - 75.0 %Remisol HemePlatelet mean volume (Bld) [Entitic vol]8.7 fL Normal6.4 - 10.8 fLRemisol HemePlatelets (Bld) [#/Vol]176.0 E9/ZZwwclo732.0 - 500.0 E9/LRemisol HemeRBC (Bld) [#/Vol]5.1 E12/LNormal4.3 - 5.9 E12/LRemisol HemeWBC corrected for nucl RBC Auto (Bld) [#/Vol]6.2 E9/LNormal4.0 - 11.0 E9/L Remisol HemeUA with Cult Rflxon 12-04-7201Ahnytpffv Ql (U)NegativeNormalNegative [facility] CenterComment on above:Performed By: #### [id number] #### [facility] Laboratory [address], [place] [address]Xqulyyr (U)ClearNormalClearMercy Health Springfield Regional Medical CenterComment on above:Performed By: #### [id number] #### [facility] Laboratory [address], [place] [address]Nevrr (U)Light-YellowNormalYellowMercy Health [facility] Center Comment on above:Result Comment: Microscopic readings are only performed on those samples that meet specific criteria set forth by [facility].Performed By: #### [id number] #### [facility] Laboratory [address], [place] [address]Fopctwj Ql (U)NegativeNormalNegMercy Health [facility] Center Comment on above:Performed By: #### [id number] #### [facility] Laboratory [address], [place] [address]Bjuprxyasz Auto test strip (U) [Mass/Vol]TraceAbnormalNegative [facility] CenterComment on above:Performed By: #### [id number] #### [facility] Laboratory [address], [place] [address]Apxjgmh Auto test strip Ql (U)NegativeNormalNegativeMercy Health Springfield Regional Medical CenterComment on above:Performed By: #### [id number] #### [facility] Laboratory [address] [place] [address]Mhfmwskob esterase Auto test strip Ql (U)NegativeNormalNegative [facility] CenterComment on above:Performed By: #### [id number] #### [facility] Laboratory [address] [place] [address] 877[address]Epgnlfz Auto test strip Ql (U)NegativeNormalNegativeMercy Health Springfield Regional Medical CenterComment on above:Performed By: #### [id number] #### [facility] Laboratory [address] [place] [address] 47520gA (U)5.0 [pH]Invalid Interpretation Code5.0-9.0[facility] Medical CenterComment on above:Performed By: #### [id number] #### [facility] Laboratory [address] [place] [address]35[address]Ycjjiff Ql (U)NegativeNormalNegativeMercy Health [facility] Comment on above:Performed By: #### [id number] #### [facility] Laboratory [address] [place] [address] 88[address]Yswijfhx gravity (U) [Rel density]1.023Invalid Interpretation Code1.005-1.030[facility] Medical CenterComment on above:Performed By: #### [id number] #### [facility] Laboratory [address] [place] [address] 57[address]Wjvbpuduunjn (U) [Mass/Vol]NegativeNormalNegativeMercy Health Springfield Regional Medical CenterComment on above:Performed By: #### [id number] #### [facility] Laboratory [address] [place] [address] 19751Pnhx of Urine collection methodClean CatchNoChillicothe HospitalComment on above:Performed By: #### [id number] #### [facility] Laboratory [address] [place] [address]ONAICOPZUSXkooant By: SYSTEM SYSTEM on 08-27-8575Yyolcvwsl Ql (U)NegativeNormalNegativemg/dLFTMC UA Auto SSClarity (U)Clear (02/18/24 10:07 AM)NormalClearFST. M[facility] UA Auto SSColor (U)Light-Yellow 1 (02/18/24 10:07 AM)NormalYellowFT UA Auto SSComment on above:Interpretive Data: Microscopic readings are only performed on those samples that meet specific criteria set forth by [facility].Glucose Ql (U) NegativeNormalNegativemg/dLST. [facility]THON[facility] [place] UA Auto SSHemoglobin Auto test strip (U) [Mass/Vol]Trace mg/dLInvalid Interpretation CodeNegativemg/dLST. ANTHONY [facility] [place] UA Auto SS Ketones Auto test strip Ql (U)NegativeNormalNegativemg/dLST. ANTHONY [facility] [place] U[facility] Auto SS Leukocyte esterase Auto test strip Ql (U)NegativeNormalNegativeLeu/uLST. ANTHONY [facility] [place] UA Auto SSNitrite Auto test strip Ql (U)NegativeNormalNegativemg/dLST. ANTHONY [facility] [place] U[place] Auto SS pH (U)5.0 *NA* (02/18/24 10:07 AM)Invalid Interpretation Code5.0 - 9.0[facility] [place] UA Auto SSProtein Ql (U)NegativeNormalNegativemg/dLST. ANTHONY [facility] [place] UA Auto SSSpecific gravity (U) [Rel density] 1.023 *NA* (02/18/24 10:07 AM)Invalid Interpretation Code1.005 - 1.030[facility] [place] UA Auto SS Urobilinogen (U) [Mass/Vol]NegativeNormalNegativemg/dLST. ANTHONY [facility] [place] UA Auto SSURINALYSIS Ordered By: Zuleima Uriostegui on 79-37-1874SK Spec DescClean Catch (02/18/24 10:07 AM)NormalST. ANTHONY [facility]OSPITAL [facility] [place] UA Auto SSeGFRon 58-54-4492fLQN06 mL/min/1.73 m2 Normal>=59[facility] Medical CenterComment on above:Order Comment: Order added by Discern Expert.Performed By: #### [id number] #### [facility] Laboratory [address] [place], [place] [address]Geg Reportson 48-95-0654Tki Reports [id number]#1.00TIFFNormOhioHealth Arthur G.H. Bing, MD, Cancer CenterPatient Educationon 33-69-4695Nxbmavd EducationUrology Erectile Dysfunction Erectile dysfunction (ED) is the inability to get or keep an erection in order to have sexual intercourse. ED is considered a symptom of an underlying disorder and is not considered a disease. ED mayinclude: ? Inability to get an erection. ? [...] The tube is inserted into the opening atthe tip of the penis, which is the opening of the urethra. A tiny pellet of medicine is put in the urethra. The pellet dissolves and enhances erectile function. This is also called MUSE (medicated urethral system for erections) therapy. ? Vacuum pump. This is a pump with a ring on it. The pump and ring are placed on the penis and usedto create pressure that helps the penis become [...] these instructions at home: Medicines ? Take vrmo-hgl-ojcadbc and prescription medicines only as told by [...] to prevent headaches while taking ED medicines. Thesemedicines may cause a sudden headache due to the increase in blood flow in your body. General instructions ? Exercise regularly, as directed by your health care provider. Work with your health care providerto lose weight, if needed. ? Do not use any products that contain nicotine or tobacco. These products include cig (more content not included)...[facility] Urology Office/Clinic Noteon 99-63-5102Gpgcfli Office/Clinic NoteChief Complaint 1yr PSA & KUB HPI Staff 16 month f/u with PSA and KUB. (pt went to [place] for 3m) Dx: kidney stone and BPH [...] ejaculation. Reports he decreased Flomax to qd andhe no longer experienced retrograde ejaculation. UA today [...] When Contact Information DOUG NATHAN, Lupe Phan, [place] [phone] [place] [phone]- Additional Instructions: 7 mos w/ PSA Patient [...] lithotripsy for renal calculus (06/16/2021), Right knee arthroscopywith partial medial meniscectomy in addition to chondroplasty, [...] vomiting) codeine (Nausea present) (more content not included)...[facility] HospitalComment on above:Result Comment: Electronically Signed By: Lupe CAMACHO MD\.br\Date and Time Signed: 11/02/23 13:20 EDT\.br\Electronically Co-Signed By: Adriana Crane.br\Date and Time Co-Signed: 11/01/2412:19 EDTLab Reportson 00-01-8179Slt Reports [id number]#1.00TIFFMercer County Community HospitalRAD - MISCon 76-77-4574AGZ - MISC [id number]#1.00TIFMercy Health St. Rita's Medical CenterNo Panel Informationon 76-53-9666Zfqxcjxn Specific Antigen Total3.70 ng/mL <=4.00[facility] SystemUS carotid doppler BIon 28-52-8022RG carotid doppler [facility] [place] [address] Ultrasound Report Signed Patient: Gerry Lay MR#: [id number] : 1950 Acct:[id number] Age/Sex: 72 / M ADM Date: 06/21/23 Loc: Room: Type: [facility] Attending Dr: uSkhdeep Crockett DO Ordering Provider: Sukhdeep Crockett DO [...] Mayo Sheikh M.D.06/22/2023 3:21 PM Dictation Location: [facility]04 Tech: Yen Estrella Transcribed By: ESE 06/22/23 152 Dictated By: Mayo Sheikh MD 06/22/23 152 Signed By: 06/22/23 152[facility] WestISTAT XRay CREon 06-21-2023 Creatinine [Mass/Vol]1.3 mg/dLNormal0.6-1.3FAdams County Hospital Comment on above:Result Comment: ER/ESD physician is notified/shown all ISTAT results. Critical values may be confirmed by laboratory testing if deemed necessary by ER attending doctor.Performed By: #### ISCRE #### [facility] [address] [place] [address] USAISTAT GFR58.368[facility] Comment on above:Result Comment: PERFORMED BY: [place] [address] PATHOLOGIST VETERINARY TECHNICIAN ASSISTANT LOGAN SERNA M.D.Performed By: #### ISCRE #### [facility] [address] [place], [place] [id number] USAMR head/brain wo/w conon 96-54-5762QB head/brain wo/w con [facility] [place] [address] MRI Report Signed Patient: Gerry Lay MR#: [id number] : 1950 Acct:[id number] Age/Sex: 72 / M ADM Date: 06/21/23 Loc: MR Room: Type: [facility] Attending Dr: Sukhdeep Crockett DO [...] Eloy Barnard M.D.06/21/2023 5:08 PM Dictation Location: [place] [address] Transcribed By: [facility] 06/21/23 9301 Dictated By: Eloy Barnard II, MD 06/21/23 1646 Signed By: 06/21/23 1708NoCincinnati Children's Hospital Medical CenterUS CAROTID ART BILon 04-99-4496QP CAROTID ART BILEXAMINATION: US CAROTID ART LOUISE HISTORY: Cardiovascular symptoms [...] Electronically authenticated by: AIXA DURANT Date: 2022-06-21 23:19[facility] AUTO DIFFon 65-28-4009PBCY #0.1 103/ulNormal0.0-0.1The Access Hospital DaytonComment on above:Performed By: #### CBC ####[facility] Asrgygmvoj[address] [place], [place] [address]Dr.Giacomo ChambersBasophils/100 WBC (Bld)0.9 %Normal0.2-2.0The [facility] Hospital DaytonComment on above:Performed By: #### CBC ####[facility] So[address]zg[address] [place], [place] [address]Dr.Giacomo ChangEO #0.2 103/ulNormal0.0-0.7The [facility] Hospital DaytonComment on above:Performed By: #### CBC ####[facility] Elmdysyrav[address] [place], [place] [address]Dr.Giacomo ChangEosinophils/100 WBC (Bld)3.0 %Normal 0.9-7.0The [facility] Hospital DaytonComment on above:Performed By: #### CBC ####[facility] Mtdtfikaom[address] [place], [place] [address]Dr.Giacomo Chambers Erythrocyte distribution width (RBC) [Ratio]12.7 %Xsqrcz25.0-15.0The [facility] Hospital DaytonComment on above:Performed By: #### CBC ####[facility] Nirtafrkwl[address] [place], [place] [address]Dr.Giacomo ChambersHematocrit (Bld) [Volume fraction]48.4 %Bdxkdv34.0-54.0The [facility] Hospital DaytonComment on above:Performed By: #### CBC ####[facility] Arbpppdkzu[address] [place], [place] [address]Dr.Giacomo ChambersHemoglobin (Bld) [Mass/Vol]16.1 g/dL Wyzfzh95.0-18.0The Springfield HospitalComment on above:Performed By: #### CBC ####[facility] Eguuzetasf[address] [place], [place] [address]Dr. Giacomo ChambersIG #0.01 10e3/ulNormal0.00-0.03The [facility] Hospital DaytonComment on above: Performed By: #### CBC ####[facility] Kewaklxhyz3[address] [place], [place] [address]Dr.Giacomo ChambersIG %0.2 %Normal0.0-0.5The [facility] Hospital DaytonComment on above:Performed By: #### CBC ####[facility] Jrodwnhuzl[address] [place], [place] [address]Dr.Giacomo ChangLYMPH #2.1 103/ulNormal1.2-3.8The [facility] Hospital DaytonComment on above:Performed By: #### CBC ####[facility] Xccitdcush[address] [place], [place] [address]Dr. Giacomo ChambersLymphocytes/100 WBC (Bld)36.7 %Onzimt07.5-60.0[facility] Comment on above:Performed By: #### CBC ####[facility] Wyurvkuqqj[address] [place], [place] [address]Dr.Giacomo ChambersMANUAL DIFF REQNONormalThe Access Hospital DaytonComment on above:Performed By: #### CBC ####[facility] Tjzipxhkgf[address] [place], [place] [address]Dr.Giacomo ChambersBATH [facility] (RBC) [Entitic mass]30.6 aaSxgftv21.9-34.0The [facility] Hospital DaytonComment on above: Performed By: #### CBC ####[facility] J[address]nqkqwz[address] [place], [place] [address]Dr.Giacomo ChambersMCHC (RBC) [Mass/Vol]33.3 g/dLNormal 29.9-35.2The [facility] Hospital DaytonComment on above:Performed By: #### CBC ####[facility] Flzommfnma[address] [place], [place] [address]Dr. Giacomo ChambersMCV (RBC) [Entitic vol]91.8 xPCxjode92.0-94.0[facility] Comment on above:Performed By: #### CBC ####[facility] Awewknglgx[address] [place], [place] [address]Dr.Giacomo ChambersMONO #0.7 103/ulNormal0.3-0.8 The [facility] Hospital DaytonComment on above:Performed By: #### CBC ####[facility] Bjhchljowd[address] [place], [place] [address]Dr.Giacomo Chambers Monocytes/100 WBC (Bld)12.1 %Critically high1.7-12.0The [facility] Hospital DaytonComment on above:Performed By: #### CBC ####[facility] Ct[address]prh[address] [place], [place] [address]Dr.Giacomo ChambersNEUT #2.6 103/ulNormal1.4-6.5The [facility] Hospital DaytonComment on above:Performed By: #### CBC ####[facility] Nsekehuubq[address] [place], [place] [address]Dr.Giacomo ChambersNeutrophils/100 WBC (Bld)47.1 %Napdim80.0-75.0The [facility] Hospital DaytonComment on above:Performed By: #### CBC ####[facility] Dkelghljnl[address] [place], [place] [address]Dr.Giacomo ChambersPlatelet mean volume (Bld) [Entitic vol]10.0 fLNormal9.5-13.5 The [facility] Hospital DaytonComment on above:Performed By: #### CBC ####[facility] Cddrigjexb[address] [place], [place] [address]Dr.Zinalan WdwweOKD923 103/ioGulqor926-302Bhh Access Hospital DaytonComment on above:Performed By: #### CBC ####[facility] Tjfxluxwnk[address] [place], [place] [address]Dr. Giacomo ChambersRBC5.27 106/ulNormal4.70-6.10The [facility] Hospital DaytonComment on above: Performed By: #### CBC ####[facility] [address] [place] [address]Dr.Giacomo ChambersWBC5.6 103/ulNormal4.0-11.0The [facility] Hospital DaytonComment on above:Performed By: #### CBC ####[facility] [address] [place], [place] [address]Dr.Giacomo ChangFREE T4on 97-47-0427Dbjy T4 [Mass/Vol]1.19 ng/dLNormal0.76-1.46The [facility] Comment on above:Performed By: #### FT4 ####[facility] Lobkm[address] [place], [place] [address]Dr.Zinastella ChambersGLYCOHEMOGLOBIN A1Con [id number] RECOMMENDATIONSEE [facility]uffton HospitalComment on above:Result Comment: ADA RECOMMENDED LIMIT 4.0 - 6.0 ADA THERAPEUTIC TARGET < 7.0 ACTION SUGGESTED > 7.0Performed By: #### A1C ####[facility] Ypzczl[address] [place], [place] [address]Dr.Giacomo ChambersGlucose [Mass/Vol]134 mg/dLNoOhio State University Wexner Medical CenterComment on above:Performed By: #### A1C ####[facility] Wsl[address]uc[address] [place], [place] [address]Dr.Giacomo ChambersHbA1c (Bld) [Mass fraction]6.3 %Critically high4.5-6.2The [facility] DaytonComment on above:Performed By: #### A1C ####[facility] [address]aiiary[address] [place], [place] [address]Dr.Zinastella ChambersLIPID PROFILEon 09-23-2918ZNVZ-HDL RATIO NORMSEE [facility]uffton HospitalComment on above:Result Comment: 3.3 - 4.4 LOW RISK 4.4 - 7.1 AVERAGE RISK 7.1 - 11.0 MODERATE RISK >11.0 HIGH RISKPerformed By: #### LIPID, CMP, TSH #### [facility] [address] [address] [address] Giacomo ChambersCholesterol [Mass/Vol]162 mg/dLNormal<=200[facility] Comment on above:Performed By: #### LIPID, CMP, TSH #### [facility] [address] [address] [address] Giacomo ChambersCholesterol in HDL [Mass/Vol]55 mg/xUWuddhv99-48Lgv [facility] DaytonComment on above:Performed By: #### LIPID, CMP, TSH #### [facility] [address] [address] [address] Giacomo ChambersCholesterol in LDL [Mass/Vol]77.6 mg/dLCherrington HospitalComment on above:Performed By: #### LIPID, CMP, TSH #### [facility] [address] [place] [address] Dr. Giacomo Leestersade.total/Cholesterol in HDL [Mass ratio]2.9 {ratio} NormalOhiohealth Dublin Methodist HospitalComment on above:Performed By: #### LIPID, CMP, TSH #### [facility] [address] [place] [address] Dr. Giacomo Wheeler NORMAL> or = 60 mg/dl - LOW CARDIOVASCULAR RISK <40 mg/dl - HIGH CARDIOVASCULAR RISKCherrington HospitalComment on above:Performed By: #### LIPID, CMP, TSH #### [facility] [address] [place] [address] Dr. Giacomo Mir CALC NORMALSEE BELOWCherrington HospitalComment on above:Result Comment: <100 mg/dl OPTIMAL 100 - 129 mg/dl NEAR OR ABOVE OPTIMAL 130 - 159 mg/dl BORDERLINE HIGH 160 - 189 mg/dl HIGH >190 mg/dl VERY HIGH Performed By: #### LIPID, CMP, TSH #### [facility] [address] [place] [address] Dr. Giacomo ChambersTriglyceride [Mass/Vol]147 mg/dLNormal<=150The [facility] Comment on above:Performed By: #### LIPID, CMP, TSH #### [facility] [address] [address] [address] Giacomo GomezLDL CALC29.4 mg/dLNormalThe [facility] Hospital DaytonComment on above: Performed By: #### LIPID, CMP, TSH #### [facility] [address] [place] [address] Dr. Giacomo Turner, RAND URon 86-37-4856wUTB2.6 mg/LNormal<=30.0The [facility] DaytonComment on above:Performed By: #### MALBR #### [facility] [address] [place] [address] Dr. Giacomo Beatty 14(COMP METB)on 02-59-5887Hufkfdo [Mass/Vol]4.0 g/dLNormal 3.4-5.0The [facility] DaytonComment on above:Performed By: #### LIPID, CMP, TSH #### [facility] [address] [place] [address] Dr. Giacomo ChambersAlbumin/Globulin [Mass ratio]1.1 {ratio}NormalThe [facility] Hospital DaytonComment on above:Performed By: #### LIPID, CMP, TSH #### [facility] [address] [place] [address] Dr. Giacomo Warner [Catalytic activity/Vol]67 U/DIjxcjq76-814Ums [facility] DaytonComment on above:Performed By: #### LIPID, CMP, TSH #### [facility] [address] [place] [address] Dr. Giacomo Castañeda [Catalytic activity/Vol]34 U/OEogoys04-20Thd [facility] DaytonComment on above:Performed By: #### LIPID, CMP, TSH #### [facility] [address] [place] [address] Dr. Giacomo Jones gap [Moles/Vol]11.0 mmol/LNormalThe [facility] Comment on above:Performed By: #### LIPID, CMP, TSH #### [facility] [address] [place] [address] Dr. Yilan ChangAST [Catalytic activity/Vol]28 U/SFcmeis29-66Zcn [facility] DaytonComment on above:Performed By: #### LIPID, CMP, TSH #### [facility] [address] [place] [address] Dr. Giacomo ChambersBilirubin [Mass/Vol]0.9 mg/dLNormal0.2-1.0[facility] Comment on above:Performed By: #### LIPID, CMP, TSH #### [facility] [address] [place] [address] Dr. Giacomo ChambersCalcium [Mass/Vol]9.4 mg/dLNormal8.5-10.1The [facility] Comment on above:Performed By: #### LIPID, CMP, TSH #### [facility] [address] [place] [address] Dr. Giacomo ChambersChloride [Moles/Vol]102 mmol/FRzzyxa31-754Fod [facility] Comment on above:Performed By: #### LIPID, CMP, TSH #### [facility] [address] [place] [address] Dr. Giacomo ChambersCO2 [Moles/Vol]31.2 mmol/WMeijeo89.0-32.0The [facility] Comment on above:Performed By: #### LIPID, CMP, TSH #### [facility] [address] [place] [address] Dr. Giacomo ChambersCreatinine [Mass/Vol]1.13 mg/dLNormal0.70-1.30The [facility] DaytonComment on above:Performed By: #### LIPID, CMP, TSH #### [facility] [address] [place] [address] Dr. Gooden ChangEGFR-AF LUXEMBOURGER>60Normal>=60The [facility] DaytonComment on above:Performed By: #### LIPID, CMP, TSH #### [facility] [address] [place] [address] Dr. Giacomo LindquistGFR-NON AF LUXEMBOURGER>60Normal>=60The [facility] DaytonComment on above:Performed By: #### LIPID, CMP, TSH #### [facility] [address] [address] [address] Giacomo ChambersGlobulin (S) [Mass/Vol]3.5 g/dLNoOhio State University Wexner Medical CenterComment on above:Performed By: #### LIPID, CMP, TSH #### [facility] [address] [address] [address] Giacomo ChambersGlucose [Mass/Vol]121 mg/dLCritically pisy89-692Bbi [facility] DaytonComment on above:Performed By: #### LIPID, CMP, TSH #### [facility] [address] [address] [address] Giacomo ChambersPotassium [Moles/Vol]4.2 mmol/LNormal3.5-5.1The [facility] Comment on above:Performed By: #### LIPID, CMP, TSH #### [facility] [address] [place] [address] Dr. Giacomo ChambersProtein [Mass/Vol]7.5 g/dLNormal6.4-8.2The [facility] Comment on above:Performed By: #### LIPID, CMP, TSH #### [facility] [address] [address] [address] Giacomo ChambersSodium [Moles/Vol]140 mmol/CEnasjb975-688Mun [facility] Comment on above:Performed By: #### LIPID, CMP, TSH #### [facility] [address] [address] [address] Giacomo ChambersUrea nitrogen [Mass/Vol]23.0 mg/dLCritically high7.0-18.0The [facility] DaytonComment on above:Performed By: #### LIPID, CMP, TSH #### [facility] [address] [place] [address] Dr. Giacomo ChambersUrea nitrogen/Creatinine [Mass ratio]20.4 mg/mgNoOhio State University Wexner Medical CenterComment on above:Performed By: #### LIPID, CMP, TSH #### [facility] [address] [place] [address] Dr. Giacomo Dent 58-50-2286LAS5.946 uIU/mLNormal0.358-3.740The [facility] DaytonComment on above:Performed By: #### LIPID, CMP, TSH #### [facility] [address] [address] [address] Giacomo ChambersXR KUB 1 VIEWon 19-34-2327DX KUB 1 VIEWEXAMINATION: XR KUB 1 VIEW HISTORY: Kidney stone [...] Electronically authenticated by: AIXA DURANT Date: 2022-05-03 22:01NoOur [facility] AUTO DIFFon 05-64-3715QSDW #0.1 103/ulNormal0.0-0.1The [facility] DaytonComment on above:Performed By: #### CBC #### [facility] [address] [address] [address] Giacomo ChambersBasophils/100 WBC (Bld)0.7 %Normal0.2-2.0The [facility] Comment on above:Performed By: #### CBC #### [facility] [address] [place] [address] Dr. Giacomo Chaudhry #0.2 103/ulNormal0.0-0.7The [facility] DaytonComment on above: Performed By: #### CBC #### [facility] [address] [address] [address] Giacomo Lindquistosinophils/100 WBC (Bld)2.7 %Normal0.9-7.0The [facility] Comment on above:Performed By: #### CBC #### [facility] [address] [address] [address] Giacomo Lindquistrythrocyte distribution width (RBC) [Ratio]12.4 %Wjoezz62.0-15.0 The Wilma HospitalComment on above:Performed By: #### CBC #### [facility] [address] [place] [address] Dr. Giacomo Linaresatocrit (Bld) [Volume fraction]47.5 %Pqvfit71.0-54.0The [facility] Hospitalment on above:Performed By: #### CBC #### [facility] [address] [place] [address] Dr. Giacomo ChambersHemoglobin (Bld) [Mass/Vol]15.5 g/jEOorjfp29.0-18.0The [facility] DaytonComment on above:Performed By: #### CBC #### [facility] [address] [place] [address] Dr. Giacomo Betancourt #0.02 10e3/ulNormal0.00-0.03The [facility] on above:Performed By: #### CBC #### [facility] [address] [place] [address] Dr. Giacomo Betancourt %0.3 %Normal0.0-0.5The [facility] Hospitalment on above: Performed By: #### CBC #### [facility] [address] [place] [address] Dr. Giacomo Dhaliwal #2.1 103/ulNormal1.2-3.8The [facility] on above:Performed By: #### CBC #### [facility] [address] [place] [address] Dr. Giacomo Machadohocytes/100 WBC (Bld)30.9 %Wrkzzx48.5-60.0The [facility] DaytonComment on above:Performed By: #### CBC #### [facility] [address] [place] [address] Dr. Giacomo AlbertUAL DIFF REQNONormalThe [facility] DaytonComment on above: Performed By: #### CBC #### [facility] [address] [place] [address] Dr. Giacomo Ricketts (RBC) [Entitic mass]31.6 rhUedvqw08.9-34.0The [facility] HospitalComment on above:Performed By: #### CBC #### [facility] [address] [place] [address] Dr. Giacomo Dodd (RBC) [Mass/Vol]32.6 g/iQYawxge15.9-35.2The [facility] DaytonComment on above:Performed By: #### CBC #### [facility] [address] [place] [address] Dr. Giacomo Dodd (RBC) [Entitic vol]96.7 fLCritically high80.0-94.0The [facility] DaytonComment on above:Performed By: #### CBC #### [facility] [address] [place] [address] Dr. Giacomo Childs #0.7 103/ulNormal0.3-0.8The [facility] DaytonComment on above:Performed By: #### CBC #### [facility] [address] [place] [address] Dr. Giacomo Chatterjeeocytes/100 WBC (Bld)10.5 %Normal1.7-12.0The [facility] Comment on above:Performed By: #### CBC #### [facility] [address] [place] [address] Dr. Giacomo Ponce #3.7 103/ulNormal1.4-6.5The [facility] DaytonComment on above:Performed By: #### CBC #### [facility] [address] [place] [address] Dr. Giacomo Barnesutrophils/100 WBC (Bld)54.9 %Idexgd48.0-75.0The [facility] DaytonComment on above:Performed By: #### CBC #### [facility] [address] [place] [address] Dr. Giacomo Hebertlet mean volume (Bld) [Entitic vol]9.9 fLNormal9.5-13.5The [facility] DaytonComment on above:Performed By: #### CBC #### [facility] [address] [place] [address] Dr. Giacomo TaylorT208 103/saBpjjtv488-521Dui [facility] DaytonComment on above: Performed By: #### CBC #### [facility] [address] [place] [address] Dr. Giacomo ChambersRBC4.91 106/ulNormal4.70-6.10The [facility] DaytonComment on above:Performed By: #### CBC #### [facility] [address] [place] [address] Dr. Giacomo ChambersWBC6.7 103/ulNormal4.0-11.0[facility] HospitalComment on above: Performed By: #### CBC #### [facility] [address] [place] [address] Dr. Giacomo Gomez T4on 72-85-4973Wkah T4 [Mass/Vol]1.12 ng/dLNormal0.76-1.46 The [facility] DaytonComment on above:Performed By: #### FT4 #### [facility] [address] [place] [address] Dr. Giacomo MyersF CHEM 8 (BAS METB)on 59-66-5840Riqdj gap [Moles/Vol]13.0 mmol/LNormalOhiohealth Dublin Methodist HospitalComment on above:Performed By: #### BMP, TSH #### [facility] [address] [place] [address] Dr. Giacomo ChambersCalcium [Mass/Vol]9.5 mg/dLNormal8.5-10.1The [facility] Comment on above:Performed By: #### BMP, TSH #### [facility] [address] [place] [address] Dr. Giacomo ChambersChloride [Moles/Vol]104 mmol/NRvcahm46-805QjxOhiohealth Dublin Methodist Hospital Comment on above:Performed By: #### BMP, TSH #### [facility] [address] [place] [address] Dr. Giacomo ChambersCO2 [Moles/Vol]32.0 mmol/NQvvbrm87.0-32.0The [facility] Comment on above:Performed By: #### BMP, TSH #### [facility] [address] [address] [address] Giacomo ChambersCreatinine [Mass/Vol]1.06 mg/dLNormal0.70-1.30The [facility] DaytonComment on above:Performed By: #### BMP, TSH #### [facility] [address] [address] [address] Gooden ChangEGFR-AF BEMCEDBG23 mL/min/1.27h4Oycfua>=60The [facility] Comment on above:Performed By: #### BMP, TSH #### [facility] [address] [address] [address] Gooden ChangEGFR-NON AF HYGDQBTX06 mL/min/1.04y0Pwglhc>=60The [facility] DaytonComment on above:Performed By: #### BMP, TSH #### [facility] [address] [place] [address] Dr. Giacomo ChambersGlucose [Mass/Vol]94 mg/pPGndfey99-300Qax [facility] Comment on above:Performed By: #### BMP, TSH #### [facility] [address] [place] [address] Dr. Giacomo ChambersPotassium [Moles/Vol]4.0 mmol/LNormal3.5-5.1[facility] Comment on above:Performed By: #### BMP, TSH #### [facility] [address] [place] [address] Dr. Giacomo ChambersSodium [Moles/Vol]145 mmol/TEopcor809-171Wyg [facility] Comment on above:Performed By: #### BMP, TSH #### [facility] [address] [address] [address] Giacomo ChambersUrea nitrogen [Mass/Vol]17.0 mg/dLNormal7.0-18.0The [facility] DaytonComment on above:Performed By: #### BMP, TSH #### [facility] [address] [place] [address] Dr. Giacomo ChambersUrea nitrogen/Creatinine [Mass ratio]16.0 mg/mgNormalThe [facility] DaytonComment on above:Performed By: #### BMP, TSH #### [facility] [address] [address] [address] Giacomo Dent 34-04-9855YPF9.398 uIU/mLCritically high0.358-3.740The [facility] on above:Performed By: #### BMP, TSH #### [facility] [id number] Giacomo Josue RANGESEE BELOWCherrington HospitalComment on above: Result Comment: <0.34 UIU/ml HYPERTHYROID 0.34-5.60 UIU/ml EUTHYROID >5.60 UIU/ml HYPOTHYROIDPerformed By: #### BMP, TSH #### [facility] [address] [address] [address] Giacomo ChambersCovid-19 PCR ([facility])on 76-62-3743IPIG-CoV-2 (COVID-19) RNA RADHA+probe Ql (Unsp spec)DetectedCritically abnormalNOT DETECTEDThe [facility] on above:Result Comment: This test is not yet approved or cleared by the [place] FDA. When there are no FDA-approved or cleared tests available, and other criteria are met, FDA can make tests available under an emergency access mechanism called an Emergency Use Authorization (EUA). The EUA for this test is supported by the Gear Milling Machine Set Up Operator of Health and Human Service's (HHS's) declaration [...] no longer be used). Performed By: #### CVDTBH ####[facility] [address] [address]SAVANNA [place] ,8 DihydroxyadenineCherrington HospitalComformerly [facility] on above:Performed By: #### CALCULI ####[facility] [address] [address]Dr. Yilan ChangAmmonium Acid UrateNormalOhiohealth Dublin Methodist HospitalComment on above:Performed By: #### CALCULI ####[facility] [address] [address]Dr. Yilan ChangBilirubin Ql (U)NormalSelect Medical Specialty Hospital - Cleveland-Fairhill HospitalComment on above:Performed By: #### CALCULI ####[facility] Esc[address] [place], [place] [address]Dr. Yilan ChangCa Oxalate DihydrateNormalOhiohealth Dublin Methodist HospitalComment on above:Performed By: #### CALCULI ####[facility] [address] [place], [place] [address]Dr. Yilan ChangCaHPO4 (Brushite)NormalOhiohealth Dublin Methodist HospitalComment on above: Performed By: #### CALCULI ####[facility] [address] [place], [place] [address]Dr. Yilan ChangCalcium BilirubinateNormalOhiohealth Dublin Methodist HospitalComment on above:Performed By: #### CALCULI ####[facility] [address] [place], [place] [address]Dr. Yilan ChangCalcium CarbonateNoOhio State University Wexner Medical CenterComment on above:Performed By: #### CALCULI ####[facility] Ank[address] [place], [place] [address]Dr. Yilan ChangCalcium Oxalate Vvpfqkuinxy875 %NormalOhiohealth Dublin Methodist HospitalComment on above:Performed By: #### CALCULI ####[facility] [address] [place], [place] [address]Dr. Yilan ChangCalcium PalmitateNoOhio State University Wexner Medical CenterComment on above:Performed By: #### CALCULI ####[facility] [address] [place], [place] [address]Dr. Yilan ChangCalcium PhosphateNoOhio State University Wexner Medical CenterComment on above:Performed By: #### CALCULI ####[facility] [address] [place], [place] [address]Dr. Yilan ChangCalcium StearateNormalOhiohealth Dublin Methodist HospitalComment on above:Performed By: #### CALCULI ####[facility] [address] [address]Dr. [facility] ChangCarbonate ApatitePremier Health on above:Performed By: #### CALCULI ####[facility] [address] [address]Dr. Yilan ChangCellular MaterialPremier Health on above:Performed By: #### CALCULI ####[facility] [address] [address]Dr. [facility]– BurlingtonCholesterol NormalOhio State Health System on above:Performed By: #### CALCULI ####[facility] On[address]inlfc[address] [place], [place] [address]Dr. [facility] ChangCosaint alphonsus eagle (U)[facility] on above:Performed By: #### CALCULI ####[facility] [address] [place], [place] [address]Dr. [facility] ChangComKettering Health Hamilton on above: Performed By: #### CALCULI ####[facility] [address] [place], [place] [address]Dr. [facility] ChangCommentElyria Memorial Hospital on above:Result Comment: Calculus received in liquid. Wet calculi must be dried before analysis, which delays reporting of results. Leaving calculi in liquid (such as water, saline, blood, urine) may lead to changes in composition.Performed By: #### CALCULI ####[facility] [address] [address]Dr. lan ChangComment: [facility] on above:Result Comment: Physician questions regarding Calculi Analysis contact [facility] at: [phone].Performed By: #### CALCULI ####[facility] [address]enwh[address] [place], [place] [address]Dr. lan ChangKerbs Memorial Hospital CommentPremier Health on above:Result Comment: Percentage (Represents the % composition)Performed By: #### CALCULI ####[facility] [address] [address]Dr. Yilan ReyesCystineNormal The [facility] Hospital DaytonComment on above:Performed By: #### CALCULI ####[facility] [address] [address]Dr. Giacomo Chambers Disclaimer:[facility] Medical CenterComment on above:Result Comment: This test was developed and its performance characteristics determined by [employer]. It has not been cleared or approved by the Food and Drug Administration.Performed By: #### CALCULI ####[facility] [address] [address]Dr. Yilan ChangDried BloodCherrington HospitalComment on above:Performed By: #### CALCULI ####[facility] W[address]ktlwgvy[address] [place], [place] [address]Dr. Yilan ReyesDrug or MetaboliteCherrington HospitalComment on above: Performed By: #### CALCULI ####[facility] [address]zrzpqzt[address] [place], [place] [address]Dr. Yilan ReyesHydroxyapatiteCherrington HospitalComment on above:Performed By: #### CALCULI ####[facility] Olcaskiuxo[address] [place], [place] [address]Dr. Yilan ChangMg NH4 PO4 (Struvite)NormalOhiohealth Dublin Methodist HospitalComment on above:Performed By: #### CALCULI ####[facility] Vinorifzqn[address] [place], [place] [address]Dr. Yilan ChangMgHPO4 (Newberyite)NormalSelect Medical Specialty Hospital - Cleveland-Fairhill HospitalComment on above: Performed By: #### CALCULI ####[facility] Anxedwmife[address] [place], [place] [address]Dr. Yilan ReyesOther component(s)NormalOhiohealth Dublin Methodist HospitalComment on above:Performed By: #### CALCULI ####[facility] [address]idyaj[address] [place], [place] [address]Dr. Yistella ChambersPDF.NormalOhiohealth Dublin Methodist HospitalComment on above:Performed By: #### CALCULI ####[facility] [address] [address]Dr. Giacomo Morrison [facility] on above:Result Comment: Photograph will follow under a separate coverPerformed By: #### CALCULI ####[facility] [address] [address]Dr. Giacomo Chambers Please note:[facility] on above:Result Comment: Calculi report will follow via computer, mail or regulatory product manager delivery.Performed By: #### CALCULI ####[facility] X[address]wrkvmjh[address] [place], [place] [address]Dr. Giacomo ChambersKegmtNvxt5o0XkpyyzNlf[address] Comment on above:Result Comment: Multiple pieces received. Dimensions of the largest piece reported.Performed By: #### CALCULI ####[facility] X[address]bmq[address]ocf[address] [place], [place] [address]Dr. Giacomo ChambersSodium Acid UrateNMedina HospitalComformerly [facility] on above:Performed By: #### CALCULI ####[facility] Owqbcrcqpo[address] [place], [place] [address]Dr. Giacomo Chambers [facility] Toledoment on above:Result Comment: Not providedPerformed By: #### CALCULI ####[facility] Xrxcdrgpcs[address] [place], [place] [address]Dr. Giacomo BucioiamtSuburban Community Hospital & [facility] on above:Performed By: #### CALCULI ####[facility] [address]vwdyr[address] [place], [place] [address]Dr. Giacomo ChambersUric Acid NormalOhiohealth Dublin Methodist HospitalComformerly [facility] on above:Performed By: #### CALCULI ####[facility] Goetumgacv[address] [place], [place] [address]Dr. Giacomo ChangUric Acid DihydrateNMount St. Mary Hospital on above: Performed By: #### CALCULI ####[facility] Kacarmcctp[address] [place], [place] [address]Dr. Giacomo ChambersPtrubCxxlzy[address] Comment on above:Performed By: #### CALCULI ####[facility] [address] [address]Dr. Yilan ChangXanthineNormalThe [facility] DaytonComment on above:Performed By: #### CALCULI ####[facility] L[address]fph[address] [place], [place] [address]Dr. Yilan ChangPROF CHEM 8 (BAS METB)on 93-11-2690Tecos gap [Moles/Vol]13.0 mmol/LNormalThe Springfield HospitalComment on above:Performed By: #### BMP ####[facility] Rmudtiy[address] [place], [place] [address]Dr.Yilan ChangCalcium [Mass/Vol]8.7 mg/dLNormal8.5-10.1The [facility] DaytonComment on above:Performed By: #### BMP ####[facility] Txuj[address] [place], [place] [address]Dr.Yilan ChangChloride [Moles/Vol]101 mmol/SKzgzzb23-132Vmp [facility] DaytonComment on above:Performed By: #### BMP ####[facility] J[address]ax[address] [place], [place] [address]Dr.Yilan ChangCO2 [Moles/Vol] 28.9 mmol/QIsrkuz46.0-32.0The [facility] DaytonComment on above:Performed By: #### BMP ####[facility] W[address]alswhmy[address] [place], [place] [address]Dr.Yilan ChangCreatinine [Mass/Vol]1.04 mg/dLNormal0.70-1.30The [facility] DaytonComment on above:Performed By: #### BMP ####[facility] Y[address]iz[address]cy[address] [place], [place] [address]Dr.Yilan ChangEGFR-AF LUXEMBOURGER>60Normal>=60The [facility] DaytonComment on above:Performed By: #### BMP ####[facility] Flxnglbixl[address] [place], [place] [address]Dr. Yilan ChangEGFR-NON AF LUXEMBOURGER>60Normal>=60The [facility] DaytonComment on above:Performed By: #### BMP ####[facility] [address] [place], [place] [address]Xp.Yilan ChangGlucose [Mass/Vol]111 mg/dLCritically rfyf88-866Yuj [facility] DaytonComment on above:Performed By: #### BMP ####[facility] [address] [place], [place] [address]Sb. Yilan ChangPotassium [Moles/Vol]3.9 mmol/LNormal3.5-5.1The [facility] Comment on above:Performed By: #### BMP ####[facility] [address] [place], [place] [address]Lz.Yilan ChangSodium [Moles/Vol]139 mmol/L Bifmxc769-843Wng [facility] DaytonComment on above:Performed By: #### BMP ####[facility] [address] [place], [place] [address]Tf. Yilan ChangUrea nitrogen [Mass/Vol]18.0 mg/dLNormal7.0-18.0The [facility] Comment on above:Performed By: #### BMP ####[facility] [address] [place], [place] [address]Dy.Yilan ChangUrea nitrogen/Creatinine [Mass ratio]17.3 mg/mgNoOhio State University Wexner Medical CenterComment on above:Performed By: #### BMP ####[facility] [address] [place] [id number]. Yilan ChangXR KUB 1 VIEWon 19-78-4294MZ KUB 1 VIEWEXAM: XR KUB 1 VIEW HISTORY: Kidney stone [...] Electronically authenticated by: RADHA PATEL Date: 2021-11-11 16:26[facility] Vital Signs Date TimeVital SignValuePerforming YrkcbuakeGcktbygr35-96-4983 09:10-0400Body qfuzog538.1 cmDavid Pocos DO Work Phone: [facility] HealthVhqydvaxpo17-81-9126 09:10-0400Body mass index (BMI) [Ratio]33.95 kg/b0Rifvs Pocos DO Work Phone: [facility] HealthIkmcwsqemx01-34-5498 09:10-0400Body bidgcj778.86 kgDavid Pocos DO Work Phone: [facility] HealthIfvqzodojo29-83-3340 09:32-0400Body nnteal938.49 kgSergio Connell MD Work Phone: [phone]07-10-2025 09:32-0400 Diastolic blood xntibjjk75 mm[Hg]Sergio Connell MD Work Phone: [phone]07-10-2025 09:32-0400 Heart rate77 /minSergio Connell MD Work Phone: [phone] [place], [place] 3106507-10-2025 09:32-0400 SaO2% (BldA) [Mass fraction]98 %Sergio Connell MD Work Phone: [phone]07-10-2025 09:32-0400 Systolic blood iqmokjpk386 mm[Hg]Sergio Connell MD Work Phone: [phone] [place], [place] 3106505-12-2025 10:29-0400 Body mass index (BMI) [Ratio]35.53 kg/i3Cseijkwiswa Leonard DO Work Phone: [facility] HealthBfxaaljryy80-57-5671 10:29-0400Body wqtwod535.94 kgChristopher Leonard DO Work Phone: [facility] HealthJlntqbceuy90-95-1226 10:29-0400Diastolic blood wrufxlfh22 mm[Hg]Tariker Leonard DO Work Phone: [facility] HealthKnztgacgwm04-58-5444 10:29-0400Heart rate69 /min Carmen Valle DO Work Phone: [phone] [place], [place] [address]Nwjfdjszhj17-56-6810 10:29-8863LwE4% (BldA) [Mass fraction]98 %Carmen Valle DO Work Phone: [facility] HealthKepgvesoym69-71-8513 10:29-0400Systolic blood iiieemxz516 mm[Hg]Carmen Valle DO Work Phone: [facility] HealthZgpppywvtz99-46-9349 09:50-0400Body .8 cmBl[facility]ard [facility]04-29-2025 09:50-0400Body mass index (BMI) [Ratio]35.7 kg/b6EvvfuowwcBlanchard Valley Health System04-29-2025 09:50-0400Body yecynz835.94 kgBlanchard Valley Health System04-29-2025 09:50-0400Diastolic blood mm[Hg][facility]04-29-2025 09:50-0400 Heart rate71 /minBlanchard Valley Health System04-29-2025 09:50-0400Systolic blood dbnueexj641 mm[Hg][facility]04-07-2025 10:14-0400 Body klmoaw110.1 cmDavid Pocos DO Work Phone: [phone] [place], [place] 7795104-07-2025 10:14-0400Body mass index (BMI) [Ratio]34.66 kg/h2Dkywj Pocos DO Work Phone: [phone] [place], [place] 7795104-07-2025 10:14-0400Body .13 kgDavid Pocos DO Work Phone: [phone])[address] [place], [place] 7795112-30-2024 10:07-0500Body ibnnry413.1 cmDavid Pocos DO Work Phone: [phone] [place], [place] 7795112-30-2024 10:07-0500Body mass index (BMI) [Ratio]34.94 kg/m4Bicza Pocos DO Work Phone: 1(516)[address] [place], [place] 7795112-30-2024 10:07-0500Body jvddhe299.04 kgDavid Pocos DO Work Phone: [phone])[address] [place], [place] 7795112-09-2024 10:12-0500Body nnvaeg047.1 cmDavid Pocos DO Work Phone: [facility] HealthPutxayfqco48-15-3149 10:12-0500Body mass index (BMI) [Ratio]34.94 kg/l1Uwulu Pocos DO Work Phone: [facility] HealthVnjnhrdnxn42-94-7092 10:12-0500Body igmeto045.04 kgDavid Pocos DO Work Phone: [phone]11-18-2024 09:11-0500Blood Pressure LocationPatrick DOUG [facility]11-18-2024 09:11-0500Body .6 [degF]Lupe CAMACHO [facility]11-18-2024 09:11-0500Diastolic blood kouksjbk69 mm[Hg]Lupe CAMACHO [facility]11-18-2024 09:11-0500Heart rate81 /minPatrick CAMACHO [facility]11-18-2024 09:11-0500Respiratory rate18 /minPatrick DOUG [facility]11-18-2024 09:11-0500Systolic blood alogifgq774 mm[Hg]Lupe CAMACHO [facility]10-09-2024 14:36-0400Body svodwo078.1 cmDavid Pocos DO Work Phone: [facility] HealthQgjumtvkrt92-16-7582 14:36-0400Body mass index (BMI) [Ratio]34.94 kg/c5Pkogc Pocos DO Work Phone: [facility] HealthRsztnedstj14-10-4235 14:36-0400Body xotlxp039.04 kgDavid Pocos DO Work Phone: [phone]09-10-2024 14:35-0400Heart rate78 /min Bunny Pocos [address] [place], [place] 2784309-10-2024 14:35-3413ZcA0% (BldA) [Mass fraction]93 %Bunyn Pocos [address] [place], [place] 2784309-10-2024 14:34-0400 Diastolic blood uqkukexq47 mm[Hg]Bunny Pocos [address] [place], [place] 2784309-10-2024 14:34-0400Mean blood querpllj46 mm[Hg]Bunny Pocos [address] [place], [place] 2784309-10-2024 14:34-0400 Systolic blood rlfasakx270 mm[Hg]Bunny Pocos [address] [place], [place] 2784309-10-2024 12:59-0400Heart rate70 /minDavid Pocos [address] [place], [place] 2784309-10-2024 12:59-6245QbP1% (BldA) [Mass fraction]96 %Bunny Pocos [address] [place], [place] 2784309-10-2024 12:59-0400 Respiratory rate18 /minDavid Pocos [address] [place], [place] 2784309-10-2024 12:58-0400 Diastolic blood fwprizfu29 mm[Hg]Bunny Pocos [address] [place], [place] 2784309-10-2024 12:58-0400Mean blood ufmhblik58 mm[Hg]Bunny Pocos [address] [place], [place] 2784309-10-2024 12:58-0400 Systolic blood jpeenroy146 mm[Hg]Bunny Pocos [address] [place], [place] 2784309-10-2024 11:43-0400Heart rate70 /minDavid Pocos [address]09-10-2024 11:43-3300UrV9% (BldA) [Mass fraction]94 %Bunny Pocos [address] [place], [place] 2784309-10-2024 11:41-0400 Respiratory rate16 /minDavid Pocos [address] [place], [place] 2784309-10-2024 11:39-0400Blood Pressure LocationDavid Pocos [address] [place], [place] 2784309-10-2024 11:39-0400 Diastolic blood jbleyzst71 mm[Hg]Bunny Pocos [address] [place], [place] 2784309-10-2024 11:39-0400Mean blood ntyegkmp45 mm[Hg]Bunny Pocos [address] [place], [place] 2784309-10-2024 11:39-0400 Systolic blood lneseqjw030 mm[Hg]Bunny Pocos [address] [place], [place] 2784309-10-2024 11:30-0400Body ybeutqdzeey61.98 [degF]Bunny Pocos [address] [place], [place] 2784309-10-2024 11:30-0400 Respiratory rate18 /minDavid Pocos [address] [place], [place] 2784309-10-2024 11:15-0400 Respiratory rate18 /minDavid Pocos [address] [place], [place] 2784309-10-2024 10:33-0400Body nznwxrxzcbo57.16 [degF]Bunny Pocos [address] [place], [place] 2784309-10-2024 10:30-0400 Respiratory rate17 /minDavid Pocos [address] [place], [place] 2784309-10-2024 10:20-0400Body mljlnbzigtl67.8 [degF]Bunny Pocos [address] [place], [place] 2784309-10-2024 10:15-0400Body azhkxghnjgc06.98 [degF]Bunny Pocos [address]09-10-2024 10:10-0400Body awlhhurhycf98.8 [degF]Bunny Pocos [address]09-10-2024 06:21-0400Blood Pressure LocationDavid Pocos [address]09-10-2024 06:19-0400Blood Pressure LocationDavid Pocos [address]08-12-2024 09:41-0400 Diastolic blood cpxznaqk17 mm[Hg]Bunny Pocos [address]08-12-2024 09:41-0400Heart rate78 /minDavidillon Pocos [address]08-12-2024 09:41-0400Mean blood rmkcsfyd632 mm[Hg]Bunny Pocos [address]08-12-2024 09:41-0400 Systolic blood oqmnqlpr756 mm[Hg]Bunny Pocos [address]08-12-2024 09:40-0400Heart rate81 /minDavid Pocos [address] [place], [place] 7241608-12-2024 09:40-9644MiD9% (BldA) [Mass fraction]97 %Bunny Pocos [address]08-12-2024 09:39-0400 Diastolic blood ladzrohc38 mm[Hg]Bunny Pocos [address] [place], [place] 7241608-12-2024 09:39-0400Mean blood ruyrfmrq899 mm[Hg]Bunny Pocos [address] [place], [place] 7241608-12-2024 09:39-0400 Systolic blood zruwznpr192 mm[Hg]Bunny Pocos [facility]05-22-2024 10:03-0400Body .8 cmBl[facility]05-22-2024 10:03-0400Body mass index (BMI) [Ratio]34.7 kg/i9VveaaacowBlanchard Valley Health System05-22-2024 10:03-0400Body ktwyoz857.76 kgBlanchard Valley Health System05-22-2024 10:03-0400Diastolic blood lklvlbod42 mm[Hg][facility] 11-28-2023 10:03-0400Heart rate71 /minBlanchard Valley Health System 11-28-2023 10:03-0400Systolic blood qrezhals454 mm[Hg][facility]04-26-2024 11:55-0400Blood Pressure LocationPatrick CAMACHO [facility]04-26-2024 11:55-0400Diastolic blood mkakpxec61 mm[Hg]Lupe CAMACHO [facility]04-26-2024 11:55-0400Heart rate80 /minPatrick CAMACHO [facility]04-26-2024 11:55-0400Respiratory rate16 /minPatrick CAMACHO [facility]04-26-2024 11:55-0400Systolic blood mm[Hg]Lupe CAMACHO [facility]12-14-2023 11:33-0500Body .8 cmMD Sergio Connell Work Phone: [facility]12-14-2023 11:33-0500 Body xkdwbe326.59 kgMD Sergio Connell Work Phone: [facility]09-07-2023 13:30-0400 Body bldpba763.8 cmSergio Ko Other [employer] Other 09-07-2023 13:30-0400Body mass index (BMI) [Ratio] 34.15 kg/f6Ycnmcr Ko Other [employer] Other 09-07-2023 13:30-0400Body emomgv466.96 kgSergio Ko Other [employer] Other 09-07-2023 13:30-0400Diastolic blood yjtyugal79 mm[Hg] Sergio Connell Other [employer] Other 09-07-2023 13:30-0400Respiratory rate12 /minSergio Connell Other [employer] Other 09-07-2023 13:30-0400Systolic blood qtzjzugl891 mm[Hg] Sergio Connell Other [employer] Other 06-26-2023 08:45-0400Body rkepao229.8 cmSergio Ko Other [employer] Other 06-26-2023 08:45-0400Body mass index (BMI) [Ratio]34 kg/e6HwthanSergio Connell Other [employer] Other 06-26-2023 08:45-0400Body yokswp046.5 kgSapnahollie Ko Other [employer] Other 06-26-2023 08:45-0400Diastolic blood nhpbmyzi56 mm[Hg] Sergio Connell Other [employer] Other 06-26-2023 08:45-7558JzH4% (BldA) [Mass fraction]97 % Sergio Connell Other [facility] Other 06-26-2023 08:45-0400Systolic blood wjonwqhu743 mm[Hg] Sergio Connell Other [facility] [employer] Other 720570-19-3435 09:29-0500Blood Pressure LocationPaAdly [facility]11-21-2022 09:29-0500Diastolic blood hxlvnyvo63 mm[Hg]Lupe Zingku [facility]11-21-2022 09:29-0500Heart rate70 /minPaAdly [facility]11-21-2022 09:29-0500Respiratory rate16 /minPaAdly [facility]11-21-2022 09:29-0500Systolic blood mm[Hg]Lupe Zingku [facility]05-09-2022 10:33-0400Blood Pressure LocationPaAdly [facility] 05-09-2022 10:33-0400Diastolic blood uaxyshox89 mm[Hg] Lupe Zingku [facility] 05-09-2022 10:33-0400Heart rate71 /minPaAdly [facility] 05-09-2022 10:33-5591Systolic blood pumekwts609 mm[Hg] Lupe DOUG [facility] Encounters Encounter DateEncounter TypeCare ProviderFacilityStart: 03-18-2025 End: 87-40-5816Asgkmmx encounter procedureDavid A Pocos DO Work Phone: [facility]oms [facility] OrthopaedicsComment on above:S/P total right hip arthroplasty (Primary Dx); History of left hip replacementStart: 03-18-2025 End: 98-67-5631nrzahknqjzVWWUL A POCOSNot AvailableStart: 01-15-2025 End: 35-48-6344kzvhuwandeIwzemg E Braun MD Work Phone: [facility] Work Phone: Start: 01-15-2025 End: 20-32-3609Pswyuog encounter procedureChrismomo Ibrahim -[facility] Neurology Work Phone: Start: 41-39-9682Kzy-patient / Non-visitLupe Camacho MD-[facility] Work Phone: Start: 12-30-2024 End: 68-95-9480Vwrtnuy encounter procedureСергей Méndez [facility] Neu[facility] Work Phone: Start: 12-22-2024 End: 17-05-8964Kipmxvh encounter procedureСергей Méndez [facility] Neu[facility] Work Phone: Start: 74-92-0016wabvgquanrMzamtxh R WATERSFacility:EU BellevueStart: 12-05-2024 End: 29-55-7477Rfbmbrlqw Result EncounterChristopher Valle DO Work Phone: noms External Department UnsolicitedStart: 12-05-2024 End: 66-17-2557Mxmxmltto Result EncounterChristopher Leonard DO Work Phone: noms External Department UnsolicitedStart: 12-05-2024 Non-patient / Non-visitChristopher Leonard Ibrahim DO-[facility] Work Phone: Start: 12-03-2024 End: 94-52-3377cffvvyqudjYsbxibp R WATERSFacility:FTMCStart: 12-03-2024 End: 55-69-6075Pinrtrn encounter procedureLupe CAMACHO [facility] Start: 98-64-3188Yqb-patient / Non-visitLupe Camacho MD-[facility] Work Phone: Start: 11-17-2024 End: 28-37-6760Euszij outpatient new 45 minutesChristopher Leonard DO Work Phone: ana SANDUSKYComment on above:Cognitive dysfunction (Primary Dx); Tremor; Long-term use of high-risk medicationStart: 11-17-2024 End: 68-41-1757kckqtngmjgLTIFKFJYAMO HASSETTNot AvailableStart: 11-04-2024 End: 28-54-8135iduxreyftgQgwjlvnmsUniversity [facility] Work Phone: Start: 11-04-2024 End: 06-81-8034Acauvyc encounter procedureB[facility] Work Phone: Start: 10-13-2024 End: 15-40-5066Nfxwtke encounter procedureDavid A Pocos DO Work Phone: noms NB ORTHOComment on above:S/P total right hip arthroplasty (Primary Dx)Start: 10-13-2024 End: 33-26-1598wzcuenugyvNPLWT A POCOSNot AvailableStart: 10-13-2024 End: 09-48-4565dddwgtpdtfWJTUJ A POCOSNot AvailableStart: 07-07-2024 End: 28-10-6755Camqhp flowsheetDavid A Pocos DO Work Phone: NOMS ORTHOStart: 07-07-2024 End: 96-21-5321Woepsc flowsheetDavid A Pocos DO Work Phone: NOMS ORTHOStart: 07-07-2024 End: 62-34-1731whvztwoizoAVEUD A POCOSNot AvailableStart: 07-07-2024 End: 04-61-7084Vboksvv encounter procedureDavid A Pocos DO Work Phone: NOMS NB ORTHOComment on above:S/P carpal tunnel release (Primary Dx)Start: 06-25-2024 End: 79-63-1100Qzrewg OnlyDavid A Pocos DO Work Phone: NOMS NB ORTHOComment on above:Carpal tunnel syndrome on right (Primary Dx)Start: 94-39-8768Ryezuht encounter procedureMercer County Community Hospitaltart: 06-16-2024 End: 12-27-7195Sfqsrrqwq Result EncounterDavid A Pocos DO Work Phone: NOM[facility] External Department UnsolicitedStart: 06-16-2024 End: 41-78-2040Muuikaeif Result EncounterDavid A Pocos DO Work Phone: [facility] External Department UnsolicitedStart: 06-16-2024 End: 27-42-8274Oksaeav encounter procedureDavid A Pocos DO Work Phone: NOMS NB ORTHOComment on above:S/P total right hip arthroplasty (Primary Dx); Preoperative testing; Carpal tunnel syndrome on rightStart: 06-16-2024 End: 89-96-7554Woejmyw encounter statusDavid A Pocos DO Work Phone: NOMS HealthcareStart: 06-16-2024 End: 96-84-3188fgrofidctyAQQBK A POCOSNot AvailableStart: 06-16-2024 End: 44-37-8675qyfunvlcziCGHYT A POCOSNot AvailableStart: 05-26-2024 End: 94-15-5185wnnrklxzwnNyjuicr Sylvester WATERSFacility:EU BellevueStart: 05-26-2024 End: 19-80-1216Dgjfnyi encounter procedurePatrick R DOUG [facility] start: 04-16-2024 End: 75-93-9167chwoplxtxjPTHVY A POCOSNot AvailableStart: 04-16-2024 End: 66-89-6678Ohfuwog encounter procedureDavid A Pocos DO Work Phone: noms NB ORTHOComment on above:S/P total right hip arthroplasty (Primary Dx)Start: 04-16-2024 End: 57-54-6002alfrlcxgcrTOWPT A POCOSNot AvailableStart: 03-18-2024 End: 18-08-2773Bcgvwjdwu Result EncounterDavid A Pocos DO Work Phone: noms External Department UnsolicitedStart: 03-18-2024 End: 44-11-2728Hczvdoatq Result EncounterDavid A Pocos DO Work Phone: noms External Department UnsolicitedStart: 03-18-2024 End: 07-48-4484Mvrekyhul to same day surgery centerDavid A Pocos [facility] Start: 03-18-2024 End: 54-26-0185olthxowenkWvmet A PocosFacility:FTMCStart: 03-13-2024 End: 23-56-8176Jjkfax flowsForrest Zhou MD Work Phone: [facility]TEStart: 03-13-2024 End: 12-56-2134Vyxkxz Michael Zhou MD Work Phone: [facility] [facility]TEStart: 03-13-2024 End: 70-70-6384Mpemrmm encounter procedureSisaac Zhou MD Work Phone: NOSQ [facility] [facility] ROUTEComment on above:Carpal tunnel syndrome of right wrist (Primary Dx)Start: 02-18-2024 End: 12-51-0916Pdpdznjaq Result EncounterDavid A Pocos DO Work Phone: noms External Department UnsolicitedStart: 02-18-2024 End: 55-37-9395Vrkbjhfxv Result EncounterDavid A Pocos DO Work Phone: noms External Department UnsolicitedStart: 02-18-2024 End: 95-03-2029qmobvvihhmSdlow A PocosFacility:[facility]ITALtart: 02-18-2024 End: 09-18-1423Kdlnzad encounter procedureDavid A Pocos [facility] Start: 11-28-2023 End: 76-58-9380hqeoeuvrroLcizjknikC[facility] Work Phone: Start: 11-28-2023 End: 21-79-5329Lllkpjv encounter procedureFiraltas Physician Group-[facility] Work Phone: Start: 12-16-5709Njw-patient / Non-visitB[facility] Work Phone: Start: 11-02-2023 End: 61-06-6749hrjrnhixzfJwcilkd R WATERSFacility:EU BellevueStart: 11-02-2023 End: 68-50-3301Ptrwmlz encounter procedureLupe CAMACHO [facility] start: 20-71-6310Alq-patient / Non-visitBetsy [facility] Work Phone: Start: 06-21-2023 End: 36-50-1461hglcwyqgixNkixbcgr MurcekFacility:[facility] Hospitaltart: 06-21-2023 End: 88-56-5994qayhgnegkjNR Marcia E Braun Work Phone: [facility] Work Phone: Start: 06-21-2023 End: 39-39-1077Leporwn encounter procedureMD Sergio Connell Work Phone: [facility] [place] Work Phone: Start: 21-52-0700likotyuatfZladgri R WATERSFacility:EU BellevueStart: 05-07-2023 End: 75-14-0177ofptherjjtCwboub Connell Other [employer] Other Start: 26-01-1096Lhkmscave encounterMarcia BraunFPG [facility] ClinicStart: 05-02-2023 End: 43-74-1602rvulnnwkzzBpvzgw Connell Other [employer] Other Start: 41-08-8349Vdvypowxk encounterMarcia BraunFPG [facility] ClinicStart: 04-10-2023 End: 66-59-6596iejdyvekieCykjmg Connell Other [employer] Other Start: 20-51-1919Exfefusrq encounterMarcia BraunFPG [facility] ClinicStart: 03-26-2023 End: 57-95-4371jqcoxvyzquJmyllm Connell Other [employer] Other Start: 97-70-3711Vgithwucq encounterMarcia BraunFPG [facility] ClinicStart: 03-20-2023 End: 07-74-0826mkjhanwylzLzchcw Connell Other [employer] Other Start: 29-34-3202Mgpmsqnhm encounterMarcia BraunFPG Referral CoordinatorStart: 03-15-2023 End: 23-67-4730rgiwekuallMwlvek Connell Other [employer] Other Start: 60-12-6871Etnozu outpatient visit 15 minutes Sergio [facility] ClinicStart: 02-22-2023 End: 80-76-6606cbaayuvupcTosrdw Connell Other [employer] Other Start: 31-06-4596Fwezkukza encounterMarcipaco Braun Medical ClinicStart: 01-11-2023 End: 80-15-5382afvjgefsvfEmgkpa Connell Other [employer] Other Start: 42-43-0417Xdfrecsfj encounterMarcipaco Braun Medical ClinicStart: 01-03-2023 End: 18-27-3796esjwieupdbGssmxn Connell Other [employer] Other Start: 84-07-1409Rlingogiu encounterMarcipaco Braun Medical ClinicStart: 01-01-2023 End: 49-23-8052lfcelkdqbgBtojvh Connell Other [employer] Other Start: 05-02-1895Kocuzz outpatient visit 15 minutes Sergio Braun [facility] ClinicStart: 06-21-2022 End: 05-49-0658ciqrjbthmeRY MARCIA E BRAUNFacility:X1Nkyty: 30-07-6177Vrbfd health examinationMarhollie Connell Other [employer] Other Start: 05-29-2022 End: 75-19-2052Ggikdet encounter procedureLupe CAMACHO [facility] start: 05-03-2022 End: 64-25-6393jxvdwlotydOW PATRICK WATERSFacility:B2Wqlbb: 12-07-2021 End: 43-88-5570dzqxsuixlaSO MARCIA E BRAUNFacility:T2Aewdh: 11-23-2021 End: 47-42-8634jdnexhpuklNIAparna CONNELLFacility:L7Uctll: 11-14-2021 End: 94-97-9471wmkhtzegsbFHAparna CAMACHOFacility:D7Ifzua: 11-14-2021 End: 19-93-6062Qmdhmpa encounter procedurePatricwesley Phan CAMACHO [facility] start: 11-11-2021 End: 05-23-6299hjthllggofELAparna CAMACHOFacility:H1 Procedures DateProcedureProcedure DetailPerforming ClinicianStart: 79-09-4914Nlpqb hips bilateral with pelvis 2 viewsDavid A Pocos DO Work Phone: Start: 70-76-6008ANL HEAD/BRAIN WO/W CONTRChristopher Leonard DO Work Phone: Start: 18-05-3686XRR CREATININEChristopher Leonard DO Work Phone: Start: 13-01-7473Wiqvd hip unilateral with pelvis 2-3 viewsDavid A Pocos DO Work Phone: Start: 60-76-3358FGI CBC WITH AUTO DIFFDavid A Pocos DO Work Phone: Start: 52-06-1430Oflpk hip unilateral with pelvis 2-3 viewsDavid A Pocos DO Work Phone: Start: 18-05-0417Hqvgg hip unilateral with pelvis 2-3 viewsDavid A Pocos DO Work Phone: Start: 97-68-8142LK HIP 1 VIEW RIGHT + PELVISDavid A Pocos DO Work Phone: Start: 48-91-2208Axcmc replacement of hipDavid Pocos Start: 03-13-2024 End: 89-53-7712Mbvccy emg ea extremty w/paraspinl area completeStyaritza Zhou MD Work Phone: Start: 16-78-3225II LOWER EXTREMITY W/O CONTRAST RIGHT Jarrett Pocos DO Work Phone: Start: 38-10-2643IDQ of headMD Sergio Connell Work Phone: Start: 02-67-9216CmjgidqdxhyXjwikk Benedict MD Work Phone: Start: 26-61-3629QIS screeningDR SERGIO KOComment on above:Performed By: #### PSAD ####[facility] [address] [address]Dr. Giacomo ChangStart: 59-43-2203Vntocjvptzwdbc shockwave lithotripsy of calculus of kidneyPatrick CAMACHO Start: 61-80-9893Utahx knee arthroscopy with partial medial meniscectomy in addition to chondroplasty, patellofemoral articulation Lupe CAMACHO Start: 73-66-4431Toxl hip arthroplastyPatrick CAMACHO Start: 73-73-4927Ylvjrpsrvvrqsk shockwave lithotripsy of calculus of kidneyPatrick CAMACHO Start: 44-20-1738Pqbladnrtgkmcc shockwave lithotripsy of calculus of kidneyPatrick CAMACHO Start: 95-67-8041Vpkuyihzcrn removal of ureteric stent Lupe CAMACHO Start: 81-94-8485Ujfbrmtykl, device (physical object) Lupe CAMACHO Start: 65-26-3120Giuxpuxkym, device (physical object) Lupe CAMACHO Start: 79-50-2541Umctm lithotripsyLupe CAMACHO arthroscope, device (physical object)Lupe CAMACHO Comment on above:B/l knees, left shoulderArthroscope, device (physical object)Bunny Bridgette CholecystectomyPatrick CAMACHO Excision of basal cell carcinomaPatrick CAMACHO History of decompression of median nerveS/P carpal tunnel releaseDavid A Bridgette DO Work Phone: Structure of rotator cuff of left shoulderDavid Pocos Tonsillectomy and adenoidectomyPatrick CAMACHO Plan of Treatment DateCare ActivityDetailAuthorStart: 44-26-3555Dhzovaznc for malignant neoplasm of colonNOMS HealthcareStart: 03-18-2025 End: 55-35-4289Gydrqbl encounter eoepjtvyj18/10/2025 9:15 AM EDT Office Visit [facility] [address] [place] [address] Bunny Hewitt DO [address] [place], [place] [id number] NOMDaquan [facility]AW ORTHOStart: 95-66-8488Sullneegr vaccinationInfluenza Vaccine (#1)NOM HealthcareStart: 12-22-2024 End: 61-03-2547Hqwxats encounter rxihdjwjw12/16/2025 9:30 AM EDT Office Visit KRISHAN JACKMAN [address] [address] [place] [address] Сергей Barry, PhD [address] [place] [address] KRISHAN GUILLORYYStart: 11-17-2024 End: 54-70-7743Eaxwhffcs (Vitamin B12) [Mass/volume] in Serum or PlasmaVitamin B12 Lab Routine Long-term use of high-risk medication Expected: 11/17/2024 (Approximate), Expires: 11/17/2025NOMS HealthcareComment on above:Expected: 11/17/2024 (Approximate), Expires: 11/17/2025Start: 11-17-2024 End: 96-09-8946HN Brain WO and W contrast IVMR brain w and wo contrast routine Imaging Routine Cognitive dysfunction Tremor Expected: 11/17/2024, Expires: 11/17/2025[facility] Work Phone: comment on above:Expected: 11/17/2024, Expires: 11/17/2025Start: 11-17-2024 End: 21-71-1941Odsdgmb encounter dtkaetizq03/12/2025 10:30 AM EDT Office Visit KRISHAN GASPER [address] [phone] Carmen Valle, DO [address] [place] [id number] KRISHAN PASTORAYStart: 10-13-2024 End: 65-51-0442Twnrfrq encounter vbkmaqrkw02/07/2025 10:00 AM EDT Office Visit [facility] [address] [place] [phone] Bunny Hewitt DO [address] [place], [place] [id number] N[facility] ORTHOStart: 08-04-2024 End: 40-51-6248Pmoraoh encounter digjvtnll20/27/2025 12:00 PM EST Office Visit [facility] [place] [address] [place] [address], [place] [phone] Carmen Valle, DO [address] [place] [id number] [address]Daquan [facility] ROUTEStart: 07-07-2024 End: 13-22-5437Zffpuhi encounter kbglipohx61/30/2024 10:00 AM EST Office Visit [facility] [address] [place] [facility] [place] [place] [address] Bunny Hewitt DO [address] [place] [address] NOMS NB ORTHOStart: 06-16-2024 End: 85-66-1541Sltkg metabolic 1998 panel - Serum or PlasmaBasic metabolic panel Lab Routine Preoperative testing Expected: 06/16/2024, Expires: 06/16/2025[facility] Work Phone: Comment on above:Expected: 06/16/2024, Expires: 06/16/2025Start: 06-16-2024 End: 24-24-5370IMT W Auto Differential panel - BloodCBC auto differential Lab Routine Preoperative testing Expected: 06/16/2024 (Approximate), Expires: 06/16/2025[facility] HealthcareComment on above:Expected: 06/16/2024 (Approximate), Expires: 06/16/2025Start: 06-16-2024 End: 19-20-3438Ykptpsd encounter aqqhtekov36/09/2024 10:30 AM EST Office Visit [facility] [address] [place] [address] Hao Donnelly PA [address] [facility] [place] [address] NOMS [facility]IA ORTHOStart: 03-18-2024 End: 99-68-5229Wakdcey encounter cdxoqfrow97/10/2024 7:30 AM EDT Procedure Visit [facility] Bunny Hewitt, DO [address] [place] [address] NOMS EXT DEPStart: 03-13-2024 End: 06-84-5661Adxfakm encounter mbojqvrpl92/05/2024 11:00 AM EDT Procedure Visit [facility] [place] [address] [place], [id number] Aixa Zhou MD [address] [place], [place] [id number] [facility] ROUTEComment on above: ArrivedStart: 76-54-5490Lngpnjjkm vaccinationInfluenza Vaccine (#1)[facility] HealthcareStart: 27-34-4350Oycfwfw ultrasonography of bilateral carotid arteries US carotid doppler [facility]ertart: 06-21-2023 US.doppler Carotid arteries - bilateralMercer County Community Hospitaltart: 82-55-1874Bqbmxncwvshp Vaccine: 65+ Years (1 of 1 - PCV)Pneumococcal Vaccine: 65+ Years (1 of 1 - PCV)[facility] HealthcareStart: 92-27-2118Dctdniyjpzej Vaccine: 65+ Years (1 of 1 - PCV)Pneumococcal Vaccine: 65+ Years (1 of 1 - PCV)[facility] HealthStart: 20-89-2783Qcyhbwefb for malignant neoplasm of colonT[facility]ELE VALLEY [facility] HealthcareComprehensive metabolic 2000 panel - Serum or PlasmaBlanchard Valley Health SystemCT Abdomen and Pelvis WO contrastBlanchard Valley Health SystemXR Hip - right 3 ViewsXR hip right 2 or 3 views Imaging Routine S/P total right hip arthroplasty 10/13/2024 8:31 AM [facility] Lucky Pai Work Phone: [facility] Immunizations Immunization DateImmunizationNotesCare MbzomxrzCbdyslrc94-32-7977qargtaqmr virus vaccine, unspecified formulationCoreworx [facility] Gjcixrls16-82-9179goxicokfg virus vaccine, unspecified formulationBlanchard Valley Health System11-30-2022influenza virus vaccine, unspecified formulationCoreworx [facility] Hospitalue09-26-2022SARS-CoV-2 (COVID-19) mRNAMUL.ORD![id number] [facility] WestComment on above:Result Comment: 2023-11-02: [id number] virus vaccine, unspecified formulationCoreworx [facility]10-25-2021SARS-CoV-2 (COVID-19) mRNA-1273 vaccinePareed CAMACHO [facility] [id number]-QmX-9 (COVID-19) mRNA-1273 vaccine Lupemilka CAMACHO [facility]02-10-2021SARS-CoV-2 (COVID-19) mRNA-1273 vaccinePareed CAMACHO [facility] 09-951910-68-0839kgxoqfvwf virus vaccine, split virus (incl. purified surface antigen)Sergio Connell Other [employer] Other 09-588763-87-3763qbfbzoaiw virus vaccine, unspecified formulationBlanchard Valley Health System10-18-2019influenza virus vaccine, unspecified formulationPaAdly [facility]01-08-2019influenza virus vaccine, split virus (incl. purified surface antigen)Sergio Connell Other [employer] Other [id number] virus vaccine, unspecified formulationPaAdly [facility]12-30-2016influenza virus vaccine, unspecified formulationPatrick Zingku [facility]12-15-2015influenza virus vaccine, split virus (incl. purified surface antigen)Sergio Connell Other [employer] Other [id number] virus vaccine, unspecified formulationPatrick Zingku [facility]09-24-2013tetanus and diphtheria toxoids, adsorbed, preservative free, for adult use (5 Lf of tetanus toxoid and 2 Lf of diphtheria toxoid)Sergio Connell Other [facility] SystemNEGATED: Highlighted row has not occurred!82-98-9268ofpstnxxtsot polysaccharide vaccine, 23 valent Sergio Connell Other [facility] [employer] Other Payers DatePayer CategoryPayerPolicy [id number] Health Insurance [id number] & [address] & [address] [id number] 2023-Present [phone] [address] [address] [place] [id number]7-8030Ispd-ulf [id number] 1960Medicare [id number] 2.16.840.1.792543.3.57[id number] 2.16.840.1.175090.3.57[id number] 2.16.840.1.688395.3.57[id number] 2.16.840.1.874906.3.57[id number] 2.16.840.1.274505.3.57[id number] 2.16.840.1.204554.3.57[id number] 2.16840.1.563458.3.57[id number] 2.16.840.1.249509.3.57[id number] 2.16840.1.068621.3.57[id number] 2.16840.1.002740.3.57[id number] 2.16840.1.446482.3.57[id number] 2.16840.1.849446.3.57[id number] 2.16840.1.457497.3.579.[id number] 2.16840.1.882238.3.57[id number] 2.16.840.1.584215.3.57[id number] 2.16840.1.923370.3.57[id number] 2.16.840.1.505534.3.57[id number] 2.16840.1.478042.3.57[id number] 2.16.840.1.467132.3.57[id number] 2.16.840.1.761952.3.579.2.0[id number] 2.16.840.1.699244.3.579.2.449124-19-1443Kszsomh1201565 2.16.840.1.562113.3.57[id number] 2.16.840.1.698304.3.57[id number] 2.16.840.1.159713.3.57[id number] 2.16.840.1.6[id number] 2.16.840.1.138727.3.579.2.531 Social History DateTypeDetailFacilityStart: 11-14-2021 End: 99-11-9318Jhfsmln smoking statusNever smoked tobacco (finding)[facility] start: 04-16-2024 End: 87-44-4652Gta Assigned At [facility] start: 58-43-3206Gtc Assigned At [facility] Centertart: 57-85-2199Runwcos smoking statusNeverExecutive Urology of [facility]omerene Hospitaltart: 05-06-8383Wzkrlzc use and exposureSmokeless tobacco non-userNOMS HealthcareStart: 02-18-2024 End: 59-47-5256Aazykueqv beverage intakeCurrent drinker of alcohol (finding)[facility]OMS HealthcareStart: 04-16-2024 End: 30-68-6224Flvigynuc beverage intakeTOOELE VALLEY [facility]OSPITAL HealthcareStart: 20-05-6796Gcbghgt Commentcaffeine intake : coffee 2 cupsTOOELE VALLEY HOSPITAL HealthcareStart: 15-63-8642Spv assigned at birthNot on fileTOOELE VALLEY HOSPITAL HealthcareStart: 11-15-2015 End: 15-45-8049LraJkyx (finding)[facility] Community Hospitalexual OrientationExecutive Urology of [facility] Medical Equipment Procedure CodeEquipment CodeEquipment Original TextEquipment IdentifierDatesHIP TOTAL ROBOT ARTHROPLASTY Pocos DO, Bunny Puentes 03/18/24 Unknown Hip RFDAStart: 00-63-7203UUC TOTAL ROBOT ARTHROPLASTY Pocos DO, Bunny Puentes 03/18/24 Unknown Hip R FDAStart: 77-51-8572YCB TOTAL ROBOT ARTHROPLASTY Pocos DO, Bunny Puentes 03/18/24 Unknown Hip RFDAStart: 49-82-5024IYF TOTAL ROBOT ARTHROPLASTY Pocos DO, Bunny Puentes 03/18/24 Unknown Hip RFDAStart: 05-05-9906PPZ TOTAL ROBOT ARTHROPLASTY Pocos DO, Bunny Puentes 03/18/24 Unknown Hip RFDAStart: 34-04-9408TMT TOTAL ROBOT ARTHROPLASTY Pocos DO, Bunny Puentes 03/18/24 Unknown Hip RFDAStart: 02-35-1622KJO TOTAL ROBOT ARTHROPLASTY Pocos DO, Bunny Puentes 03/18/24 Unknown Hip RFDAStart: 03-59-2648ATP TOTAL ROBOT ARTHROPLASTY Pocos DO, Bunny Puentes 03/18/24 Unknown Hip RFDAStart: 46-26-3941AZL TOTAL ROBOT ARTHROPLASTY Pocos DO, Bunny Puentes 03/18/24 Unknown Hip R FDAStart: 15-45-7412WJJ TOTAL ROBOT ARTHROPLASTY Pocos DO, Bunny Puentes 03/18/24 Unknown Hip RFDAStart: 04-73-1994CIG TOTAL ROBOT ARTHROPLASTY Pocos DO, Bunny Puentes 03/18/24 Unknown Hip RFDAStart: 72-09-8729DGU TOTAL ROBOT ARTHROPLASTY Pocos DO, Bunny Puentes 03/18/24 Unknown Hip RFDAStart: 36-62-6616ZSC TOTAL ROBOT ARTHROPLASTY Pocos DO, Bunny Puentes 03/18/24 Unknown Hip RFDAStart: 93-03-4585NDL TOTAL ROBOT ARTHROPLASTY Pocos DO, Bunny Puentes 03/18/24 Unknown Hip RFDAStart: 59-59-4929LFQ TOTAL ROBOT ARTHROPLASTY Pocos DO, Bunny Puentes 03/18/24 Unknown Hip RFDAStart: 85-01-5957RRA TOTAL ROBOT ARTHROPLASTY Pocos DO, Bunny Puentes 03/18/24 Unknown Hip R FDAStart: 38-27-6619LLQ TOTAL ROBOT ARTHROPLASTY Pocos DO, Bunny Puentes 03/18/24 Unknown Hip RFDAStart: 52-46-1688MTB TOTAL ROBOT ARTHROPLASTY Pocos DO, Bunny Puentes 03/18/24 Unknown Hip RFDAStart: 03-70-9235DYK TOTAL ROBOT ARTHROPLASTY Pocos DO, Bunny Puentes 03/18/24 Unknown Hip RFDAStart: 43-23-7472DVI TOTAL ROBOT ARTHROPLASTY Pocos DO, Bunny Puentes 03/18/24 Unknown Hip RFDAStart: 60-66-6559YWB TOTAL ROBOT ARTHROPLASTY Pocos DO, Bunny Puenets 03/18/24 Unknown Hip RFDAStart: 57-50-0008OIV TOTAL ROBOT ARTHROPLASTY Pocos DO, Bunny Puentes 03/18/24 Unknown Hip RFDAStart: 09-55-7363KKA TOTAL ROBOT ARTHROPLASTY Pocos DO, Bunny Puentes 03/18/24 Unknown Hip R FDAStart: 68-81-6822UGS TOTAL ROBOT ARTHROPLASTY Pocos DO, Bunny Puentes 03/18/24 Unknown Hip RFDAStart: 03-18-2024 Functional Status GfjuFplqwychclDayrdhTjfhmcnd91-84-5658Yqyglqskxi StatusN/AExecutive [facility]rology of [facility]08-12-2024Functional StatusNoFirelands [facility]04-26-2024Functional StatusN/AExec[facility]11-21-2022Functional StatusN/AExec[facility] Clinical Notes 11-14-2021 to 03-18-2025 Note Date & GsyePssaGrtytivv48-48-2069 History of Present illness Narrative* Bunny Puentes Bridgette, DO - 03/18/2025 9:15 AM EDT Post op Bilateral JAZIEL annual visit: The patient is seen and evaluated for annual total hip arthroplasty visit. Pain is appropriately controlled. Denies chest pain or shortness of breath or palpitations. Continues to be consistent and diligent with home exercise program as well as physical therapy modalities. Happy with the procedure. Physical Exam: The total hip incisions are clean, dry and intact. Has a stable arc of motion without mechanical symptoms. No instability of the prosthesis. No rash, infection or DVT. The calves are supple bilaterally. Gait is unassisted. This exam does hold true bilaterally. Image Results: Xrays taken in the office today saved to the permanent record, 4 views including AP pelvis and bilateral laterals of the hips, show stable position and alignment of the JAZIEL prostheses. No sign of loosening, fracture or catastrophic wear. Limb lengths are appropriate. Assessment: S/P total hip arthroplasty-annual post-operative visit, bilateral Treatment Plan: The nature of the findings were discussed at length. Continuance of regular exercise, weight management and fall precautions reviewed. Metal detectors are discussed. alf antibiotic prophylaxis for dental or invasive work were reviewed. Numerous questions were answered. Follow-up in 2 years for repeat xray and exam, sooner if concerned. The patient is discharged in stable condition. documented in this encounterCrittenton Behavioral HealthIowrjvyemk79-15-0173 Hospital Discharge instructions Patient Education 12/03/2024 11:49:57 24-Hour Urine Collection 24-Hour Urine Collection Why am I having this test? A 24-hour urine specimen is a lab test that requires you to collect all of your urine for an entireday. This is sometimes called a timed urine test. It can provide more information than a single urine sample. There are many reasons to have this test. Your health care provider may order the test to check foror monitor the following conditions: High blood pressure. Kidney disease. Kidney stones. Urinary tract infections. . Diabetes. How do I prepare for this test? You may be asked to follow a special diet during or before the collection period. Follow any instructions from your health care provider. If no special instructions are given, you may eat and drink normally. Take zfng-cgm-jxqikxf and prescription medicines only as told by your health care provider. Let your health care provider know about any medicines that you are taking, including dngl-lxl-kfldnnq medicines, vitamins, herbs, and supplements. Choose a [...] is okay. Do not throw out the liquidor rinse out the jug. Urinate into a [...] collect all of your urine for an entireday. When you get up in the morning, [...] provider. Document Revised: 12/30/2021 Document Reviewed: 12/30/2021 ElseDaric Patient Education 2023 [employer]. Follow Up Care 11/18/2024 12:59:29 With:DOUG NATHAN, Lupe Phan, URL Address: [facility] [address] [place] [address]- When: Unknown [facility] Day 05-28-2025 NotePatient Education Urology 24-Hour Urine Collection Why am I having this test? A 24-hour urine specimen is a lab test that requires you to collect all of your urine for an entireday. This is sometimes called a timed urine test. It can provide more information than a single urine sample. There are many reasons to have this test. Your health care provider may order the test to check foror monitor the following conditions: ??? High blood [...] may eat and drink normally. ??? Take qoof-osh-wvjjdej and prescription medicines only as told by your health care provider. ??? Let your health care provider know about any medicines that you are taking, including nluo-all-spkdgsh medicines, vitamins, herbs, and supplements. ??? Choose a collection day when you can be at home or when you have a place to store the urine. All urine must be collected during the testing period. How do I do a 24-hour urine collection? When you get up in the morning, urinate in the toilet and flush. Write down the time. This willbe your start time on the day of [...] provider. Document Revised: 12/30/2021 Document Reviewed: 12/30/2021 ElseDaric Patient Education ? 2023 [employer].[facility] 11-17-2024 History of Present illness Narrative* Carmen Valle DO - 11/17/2024 10:30 AM EDT Images from the original note [...] also been for about one year. MOCA- Review of Systems Respiratory: Negative for shortness [...] , wrist extensors , wrist flexor , extrusion manager strength 5/5. LUE Strength deltoid , biceps , triceps , wrist extensors , wrist flexor , extrusion manager strength 5/5. RLE Strength illopsoas, quadriceps, tibialis [...] reflex 2+ . Sepulveda's sign negative. Coordination: Gulydc-gc-pebs testing and rapid alternating movements are normal Gait: Normal Review and summary of old records: MOCA at [facility] on 11/17/24: Carotid ultrasound on 06/17/2024: Less [...] the patient has also noticed a subtle tremorin the right upper extremity and head. I wonder with a subtle cognitive changes and tremor if theseare very early signs of parkinsonism. However, examination [...] plan, and return instructions documented in this encounterCrittenton Behavioral HealthQdvzpxgvux80-37-9544 Evaluation note* Diagnosis Onset Date Resolution Status Admit Date Acquired hypothyroidism acuteApril 2024 9:49amAcute right flank painacuteApril 2024 9:49am Kidney stonesacuteApril 2024 9:49amLeft lower lobe pulmonary noduleacute November 04, 2024 9:49amFamily history of dementiaacuteJune 2024 9:37am Memory lossacuteJune 2024 9:37amCarotid artery diseaseacuteJune 2024 8:51amFamily history of dementiaacuteJune 2024 8:51amMemory lossacuteJune 2024 8:51amCognitive dysfunctionacuteJuly 2024 9:31am [facility] Work Phone: 1(763) 531-991804-07-2025 History of Present illness Narrative* Sofía Greenberg - 10/13/2024 10:00 AM EDT Images from the original note [...] changes. He states he initially was having somespasm type activities. He did seek someone out in [place] who gave him a medication that is [...] Nausea present Oxycodone-Acetaminophen GI intolerance Can take Alber[place] or hydrocodone without issue Prochlorperazine Family history [...] a well-fixed, well-aligned total hip arthroplasty bilaterally. Bothhips are located. There is no evidence of fracture or other osseous abnormality. ASSESSMENT AND PLAN: Assessment/Plan Status post right total hip arthroplasty. The findings are discussed. The treatment alternatives are outlined. We did recommend supportive care and advancement of all activities. He does voice understanding of this. We will see him back herein six months for x-ray and recheck of both hips. We will take this as his annual visit. All questions are otherwise answered. Cosigned by Bunny Hewitt DO at 10/14/2024 7:17 PM EDT documented in this [facility]12-30-2024 History of Present illness Narrative* Bunny Hewitt DO - 07/07/2024 10:00 AM EST Chief complaint: S/P carpal tunnel-first postoperative visit History: S/P carpal tunnel release, doing well. No complaints with anesthesia or albin- operative ancillary care. Pain is controlled. No chest [...] the findings were discussed at length. Continue extrusion manager and start Vitamin E oil massage,exercises twice daily for the next few weeks. Etiology of pillar pain reviewed and will lessen overthe next couple months. Physicians Assistant strength and return expectations reviewed, with improvement up to 3-6 months.. OT was offered and discussed. F/U will be in 1 months, prn if doing well. All questions answered. documented in this [facility]12-09-2024 History of Present illness Narrative* Sofía Greenberg - 06/16/2024 10:30 AM EST Images from the original note were not [...] therapy. He will be leaving off to [place] just after the first of the year. [...] REPAIR 2013 TOTAL HIP ARTHROPLASTY Left 02/15/2016 SOCIAL HISTORY: [...] Nausea present Oxycodone-Acetaminophen GI intolerance Can take Alber[place] or hydrocodone without issue Prochlorperazine Family history [...] views with permanent images saved to the record,show well-fixed, well-aligned total hip arthroplasty bilaterally. No [...] hip arthroplasty with persistent right wrist median neuropathy,carpal tunnel syndrome. PLAN: The findings are discussed. 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 We did discuss surgical intervention for this. Hewould like to go ahead with that. We [...] physician. Bunny Hewitt D.O. documented in this encounterCrittenton Behavioral HealthXojhdstrql02-39-7967 Hospital Discharge instructions Patient Education 05/26/2024 09:43:11 Kidney Stones, Xplk-gt-Hwfc Kidney Stones Kidney stones are rock-like masses [...] Follow these instructions at home: Medicines Take rqpl-que-vhvxfzr and prescription medicines only as told by [...] provider. Document Revised: 02/16/2023 Document Reviewed: 02/16/2023 vMobo Patient Education 2023 [employer]itAd. Follow Up Care 11/02/2023 13:22:05 With:DOUG NATHAN, Lupe Phan, URL Address: [facility] [address], [place] [phone] When: Unknown Comments:6 mos w/ PSA and KUB [facility] 11-18-2024 NotePatient Education Urology Kidney Stones Kidney stones are [...] these instructions at home: Medicines ??? Take euct-nnq-lzjfdsu and prescription medicines only as told by [...] provider. Document Revised: 02/16/2023 Document Reviewed: 02/16/2023 vMobo Patient Education ? 2023 IgnitAd.[facility] 04-16-2024 History of Present illness Narrative* Bunny Hewitt, DO - 04/16/2024 2:30 PM EDT Post op JAZIEL 1st visit: The patient [...] pelvis and lateral hip of the operative side,saved to the permanent record, show stable position and alignment of the hip prosthesis. No sign ofloosening, fracture or catastrophic wear. Assessment: S/P total hip arthroplasty-first post-operative visit Treatment Plan: The nature of the findings were discussed at length. Ice, vitamin E oil massage techniques, stretching, physical therapy modalities will be continued and were reviewed. Discontinuance of the DVT prophylaxis that was used in the first four weeks. Resume any prexisting medications and blood thinners.Continuance of physical therapy with progression to a home program. Fall precautions, with assistive device as needed. Hip dislocation precautions reviewed. Follow up will be in 2 months for repeat x-ray and exam. Metal detectors are discussed. alf antibiotic prophylaxis for dental or invasive work were reviewed. Numerous questions were answered. The patient is discharged in stable condition. documented in this encounterCrittenton Behavioral [id number] NoteProgress Note-Physician Patient: GERRY LAY Age: 73 years Sex: Male : 1950 Associated Diagnoses: None Author: Aj NATHAN, Lucas Matias Postoperative Information Postoperative disposition: Postoperative disposition: To PACU. Optimetrix number: Optimetrix number [id number]. Anesthetic utilized: General. Regional: FIB . Health [...] Discharge when meets criteria ( To home ).[facility] [place] [facility] CenterComment on above:Result Comment: Electronically Signed By: Lucas Veloz MD\.br\Date and Time Signed: 03/18/24 14:43 EDT 03-18-2024 NoteInterdisciplinary Note - PT PT evaluation completed with an AMPAC score of . Pt able to ambulate 75 ft with CGA and FWW. Pt would be functionally safe to be discharged home with caregiver assist and [id number] to follow.[facility]09-10-2024 Evaluation + Plan noteExtracted from:Title:ANES Post-operative Note---General Author:Lucas Veloz MDDate:03/18/24 Plan Transfer/Discharge: Transfer/Discharge Discharge when meets criteria ( To home ). Extracted from:Title:ANES Pre-operative Note uthor:Lucas Veloz MDDate: 03/18/24 Plan [place] [employer] Anesthesiologists (ASA) physical status classification: Class III. Anesthetic Preoperative Plan: Anesthesia. Regional Spinal, and Fascia Iliaca Block . Future Appointments Appointment Date:05/26/2024 08:45:00 AM Scheduled Provider:Lupe CAMACHO MD Location:[facility] Appointment Type:URO Office Visit [facility] [id number] Hospital Discharge instructions Patient Education 03/18/2024 11:31:13 Post Op Patient Instructions - FT (Custom) (CUSTOM) 03/11/2024 07:09:40 [place] - Hip Replacement Arthroplasty - Posterior Lateral Approach (Custom) [place], [place] [facility] DISCHARGE INSTRUCTIONS HIP REPLACEMENT [...] continue at home, possible with the assistant manager airside operations of Home Health Physical Therapy or in the hospital as an outpatient. When you have become independent withthe physical therapy program, this will then be discontinued as a supervised program and you will be instructed to continue the physical therapy exercises at home. DRIVING: Do NOT Drive FOLLOW-UP OFFICE VISIT: 4 weeks Postop Bunny Hewitt, [facility] [address] [place] [id number] Revised: 11-28 Follow Up Care 02/11/2024 10:15:08 With:Bunny Hewitt Address: [address] [place], [place] [id number]- Business (1) When:04/16/2024 14:30:00 Comments:Appointment has already been scheduled. Call for any problems. [facility] 09-10-2024 NotePatient Education - Text [place], [place] [facility] DISCHARGE INSTRUCTIONS HIP REPLACEMENT [...] continue at home, possible with the assistant manager airside operations of Home Health Physical Therapy or in the hospital as an outpatient. When you have become independent withthe physical therapy program, this will then be discontinued as a supervised program and you will be instructed to continue the physical therapy exercises at home. DRIVING: Do NOT Drive FOLLOW-UP OFFICE VISIT: 4 weeks Postop Bunny Hewitt, DO [facility] [address] [place] [address] Revised: 11-28[facility] [place] [facility]09-10-2024 NoteProgress Note-Physician Patient: GERRY LAY Age: 73 years Sex: Male : 1950 Associated Diagnoses: None Author: Bunny Hewitt DO Postoperative Information Procedure: R RA JAZIEL Preoperative Diagnosis: R hip OA. Postoperative Diagnosis: same. Performed by: bridgette. [place]aker [place]: Patrice Cisneros. Specimens Removed: bone, soft tissue. Prosthesis: [place]. . Estimated Blood Loss: 300 ml. Complications: None. Anesthesia type: Spinal, fascia iliaca block.[facility] [place] [facility] CenterComment on above:Result Comment: Electronically Signed By: Bunny Hewitt DO\.br\Date and Time Signed: 03/18/24 10:23 [id number] NoteProgress Note-Physician Patient: GERRY LAY Age: 73 years Sex: Male : 1950 Associated Diagnoses: None Author: Aj NATHAN, Lucas Matias Preoperative Information Anesthesia Preop Info: Time patient [...] dysfunction, # 30 tab(s), Refills(s) 3, Pharmacy: [facility]/pharmacy #[id number], 178, cm, 11/02/23 11:57:00 EDT, Height/Length Dosing, 102, kg, 11/02/23 11:57:00 EDT, Weight Dosing Colace 100 mg Cap: 100 mg = 1 cap(s), Oral, BID, PRN for constipation, # 40 cap(s), Refills(s) 0, Pharmacy: [facility]/pharmacy #[id number], 177.5, cm, 02/18/24 14:14:00 EDT, Height/Length Dosing, 111.4, kg, 02/18/24 14:14:00 EDT, Weight Dosing Flomax 0.4 mg Cap: 0.4 mg = 1 cap(s), Oral, BID, # 180 cap(s) (more content not included)...[facility] [place] [facility] CenterComment on above:Result Comment: Electronically Signed By: Aj NATHAN, Lucas Matias\.br\Date and Time Signed: 03/18/24 09:06 [id number] History of Present illness Narrative* Flor Lerner MA - 03/13/2024 11:00 AM EDT Images from the original note were not included. Reason for Appointment: EMG Patient: Gerry Valverde Virgilio : 1950 EMG Computer: [employer] Referring Physician: Dr. Hewitt EMG: MEL jewelry sales: Flor Lerner CMA Office Location: [place] Reason for EMG: c/o pins and needles in the right hand. Less with starting vitamin B6. Electrical shocks in the hand. Decreased extrusion manager. Thumb pain. No Hx of DM, not taking blood thinners. Comments: Procedure explained to the patient who expressed understanding. documented in this encounterCrittenton Behavioral [id number] NotePatient Education - Text [place], [place] [facility] DISCHARGE INSTRUCTIONS HIP REPLACEMENT [...] continue at home, possible with the assistant manager airside operations of Home Health Physical Therapy or in the hospital as an outpatient. When you have become independent withthe physical therapy program, this will then be discontinued as a supervised program and you will be instructed to continue the physical therapy exercises at home. DRIVING: Do NOT Drive FOLLOW-UP OFFICE VISIT: 4 weeks Postop Bunny Hewitt, DO [facility] [address] [place] [address] Revised: 11-28[facility]04-26-2024 Hospital Discharge instructions Patient Education 11/02/2023 13:09:17 [...] Follow these instructions at home: Medicines Take odth-hrv-jrokant and prescription medicines only as told by [...] provider. Document Revised: 09/21/2021 Document Reviewed: 09/21/2021 vMobo Patient Education 2022 [employer]. Follow Up Care 05/25/2023 13:25:49 With:DOUG NATHAN, Lupe Phan, URL Address: [address] [place], [place] [id number]- When: Unknown [facility] 10-25-2023 Evaluation note* Encounter Date Diagnosis Assessment Notes Treatment Notes Treatment Clinical Notes Apr, Left lower lobe pulmonary nodule (ICD-10 - R91.1) [employer] Other 09-07-2023 Evaluation note* Encounter Date Diagnosis Assessment Notes Treatment Notes Treatment Clinical Notes Mar, Benign 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 (ICD-10 - H81.13) Pt requests referral to Dr. Crockett - states his office would like a CT sinus to be complete prior to the OV. [employer] Other 07-06-2023 Evaluation note* Encounter Date Diagnosis Assessment Notes Treatment Notes Treatment Clinical Notes Jan, Dyspnea on exertion (ICD-10 - R0 6.09) [employer] Other 06-26-2023 Evaluation note* Encounter Date Diagnosis Assessment Notes Treatment Notes Treatment Clinical Notes Dec, Primary hypertension (ICD-10 - I 10) Chronic problem- check labs and EKG. Upcoming trip to [place] later this summer. Dec,PV (benign positional vertigo), bilateral (ICD-10 - H81.13)Order printed for PT Dec,cquired hypothyroidism (ICD-10 - E03.9)Check labs. [employer] Other 11-21-2022 Hospital Discharge instructions Patient Education [...] include: ?Spinach. ?Rhubarb. ?Beets. ?Potato chips and polish fries. ?Nuts. If you regularly take a diuretic medicine, make sure to eat at least 1 2 fruits or vegetables high in potassium each day. These include: ?Avocado. ?Banana. ?Walworth, prune, carrot, or tomato juice. ?Baked potato. [...] Casseroles. Pizza. Lasagna. Frozen meals. Potato chips. [place] fries. Summary You can reduce your risk [...] 10/20/2011 Document Revised: 10/15/2019 Document Reviewed: 06/05/2017 vMobo Patient Education 2020 [employer]. Follow Up Care 11/14/2021 11:17:31 With:DOUG NATHAN, Lupe Phan, URL Address: [facility] [address] [place] [address]- When: Unknown [facility] [place] 05-09-2022 Hospital Discharge instructions Patient Education 11/14/2021 [...] include: ?Spinach. ?Rhubarb. ?Beets. ?Potato chips and polish fries. ?Nuts. If you regularly take a diuretic medicine, make sure to eat at least 1 2 fruits or vegetables high in potassium each day. These include: ?Avocado. ?Banana. ?Walworth, prune, carrot, or tomato juice. ?Baked potato. [...] Casseroles. Pizza. Lasagna. Frozen meals. Potato chips. [place] fries. Summary You can reduce your risk [...] 10/20/2011 Document Revised: 10/15/2019 Document Reviewed: 06/05/2017 vMobo Patient Education 2020 [employer]. Follow Up Care 07/15/2021 13:17:36 With:DOUG NATHAN, Lupe Phan, URL Address: [facility] [address], [place] [address]- When: Unknown [facility] evaluation + Plan note Future Appointments Appointment Date:05/29/2022 09:15:00 AM Scheduled Provider:Lupe CAMACHO MD Location:[facility] Appointment Type:URO Office Visit Diagnostic Tests Pending * PSA Total 11/14/21 * Calculi Analysis Urinary 11/14/21 [facility] evaluation + Plan note Future Appointments Appointment Date:06/04/2023 09:15:00 AM Scheduled Provider:Lupe CAMACHO MD Location:[facility] Appointment Type:URO Office Visit Diagnostic Tests Pending * PSA Total 05/29/22 [facility] evaluation + Plan note Future Appointments Appointment Date:05/26/2024 08:45:00 AM Scheduled Provider:Lupe CAMACHO MD Location:[facility] Appointment Type:URO Office Visit Diagnostic Tests Pending * PSA Total 12/22/23 * PSA Total 03/09/24 [facility] evaluation + Plan note Future Appointments Appointment Date:03/18/2024 09:00:00 AM Scheduled Provider: Location:[facility] Appointment Type:Surgery FT Appointment Date:05/26/2024 08:45:00 AM Scheduled Provider:Lupe CAMACHO MD Location:[facility] Appointment Type:URO Office Visit [facility] evaluation + Plan note Future Appointments Appointment Date:11/21/2024 08:45:00 AM Scheduled Provider:Lupe CAMACHO MD Location:[facility] Appointment Type:URO Office Visit Diagnostic Tests Pending * PSA Total 05/26/24 * Calculi Analysis Urinary 05/26/24 [facility] evaluation noteNo InformationNort Pecabu Other Evaluation noteNo assessment information available [facility] Work Phone: Evaluation note* Diagnosis Onset Date Resolution Status HTN (hypertension) acuteHyperlipidemiaacuteHypothyroidacute [facility] Work Phone: Evaluation note* Diagnosis S/P total right hip arthroplasty- Primary [facility] encounter [facility]* Diagnosis S/P total right hip arthroplasty- Primary Preoperative testing Unspecified pre-operative examination Carpal tunnel syndrome on right Carpal tunnel syndrome documented in this encounter [facility] HealthcareEvaluation [facility]* Diagnosis Carpal tunnel syndrome of right wrist- Primary documented in this encounter [facility] HealthcareEvaluation note* Diagnosis Carpal tunnel syndrome on right- Primary Carpal tunnel syndrome documented in this encounter [facility] HealthcareEvaluation note* Diagnosis S/P carpal tunnel release- Primary Other postprocedural status documented in this encounter [facility] HealthcareEvaluation note* Diagnosis S/P total right hip arthroplasty- Primary documented in this encounter [facility] HealthcareEvaluation note* Diagnosis Onset Date Resolution Status Admit Date Acute right flank pain acuteApril 2024 9:49am [facility] Work Phone: Evaluation note* Diagnosis Cognitive dysfunction- Primary Unspecified persistent mental disorders due to conditions classified elsewhere Tremor Abnormal involuntary movements Long-term use of high-risk medication documented in this encounter [facility] HealthcareEvaluation note* Diagnosis S/P total right hip arthroplasty- Primary History of left hip replacement documented in this encounter [facility] HealthcareHistory general Narrative - Reported* Type Description Date Medical History Kidney stones Medical HistoryHypercholesterolemiaSurgical HistorylithotripsySurgical History cystoscopySurgical Historyknee arthroscopySurgical Historyrotator cuffSurgical HistorycholecystectomySurgical HistoryColonoscopy12/2022Hospitalization History see above [facility] [employer] Other Hospital course Narrative No data available for this section [facility] Hospital Discharge instructions No data available for this section [facility] Progress note No data available for this section [facility] reason for referral (narrative)No reason for referral information availableTrumbull Memorial Hospital Work Phone: Reason for visit Narrativereferral for vertigo, [facility] [employer] Other Reason for visit Narrative* Consultation (Routine) - ClosedSpecialtyDiagnoses / ProceduresReferred By ContactReferred To Contact Neurology Diagnoses Other amnesia Procedures FL OFFICE/OUTPATIENT [facility] Sergio Connell MD Phone: tel: fax: Aixa Zhou MD Referral IDStatusReasonStart DateExpiration DateVisits RequestedVisits [id number] Consult and Treat / [facility] Summary Purpose Family History Relationship Condition Age at Onset Recorded Date/T abelardo brother Heart disease Unknown DeceasedUnknownfatherDeceasedUnknownDisorder of lungUnknown Advance Directives Advance Directive Response Recorded Date/ Time Advance Directives No June 12, 2023 12:51pm Advance Directive Response Recorded Date/ Time Advance Directives No June 12, 2023 1:51pm Reason for Referral SpecialtyDiagnoses / ProceduresReferred By ContactReferred To Contact Diagnoses Carpal tunnel syndrome of right wrist Procedures NVC 7-8 Nerves Aixa Zhou MD [address] [place] [address] Referral IDStatusReasonStart DateExpiration DateVisits RequestedVisits [id number] Review/ Reason vertigo - today s visit Diagnosis 1 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) [facility] Referring Provider First Name Sergio Referring Provider Last Name Ko Referring Provider Specialty Family [facility] Referred Organization [facility] Referred Provider Sukhdeep Crocektt Referred Address ,[place], [place],[address] Referred Provider Specialty Otolaryngolo gy Referral Priority Routine General Notes Mia Thrasher 11:33:32 AM >recieved today, insurance attached, waiting for notes to be locked to fax Mia Thrasher 03/20/2023 09:26:55 AM >SENT TE TO LOCK NOTES Chief Complaint and Reason for Visit Chief Complaint H91.8X3 H81.391 R42 Chief Complaint Amb Documentation stuffy noseReason for VisitHTN (hypertension) Hyperlipidemia Hypothyroid Chief Complaint Admit Date Back Pain November 04, 2024 9:4 9am Reason for Visit Admit Date Acute right flank pain November 04, 2024 9:49am Chief Complaint Admit Date Back Pain November 04, 2024 9:4 9am NPCR; CASEY Jeni VALLE December 22, 2024 9:3 7am NPCR MEDICARE/MEDICARE SUPP December 30, 025 8:51am Post Neuropsych FU January 15, 2025 9:31 am Reason for Visit Admit Date Acquired hypothyroidism November 04, 2024 9:49am Acute right flank pain November 04, 2024 9:49am Kidney stones November 04, 2024 9:4 9am Left lower lobe pulmonary nodule October 082024 9:49am Family history of dementia December 22 9:37am Memory loss December 22, 2024 9:37 am Carotid artery disease December 30, 2024 8 :51am Family history of dementia December 30 8:51am Memory loss December 30, 2024 8:51 am Cognitive dysfunction January 15, 2025 9: 31am Additional Source Comments Patient Care team informatio [...] Active Start: November 20, 2023 Ingrid Olson RMAAttiffany ProviderActiveStart: November 20, 2023 Team Status: Inactive Member Role Status Dates Sergio Connell MD Primary Care Provide r, Attending Provider Active Start: November 28, 2023 End: November 28, 2023 Team Status: Inactive Member Role Status Dates Sukhdeep Crockett DO Attending Provider Active [facility] Care ProviderActiveTeam MemberRelationshipSpecialty Start DateEnd Date Sergio Connell MD [address] [place] [phone] PCP - GeneralFamily Rcescogj80/16/23Team MemberRelationshipSpecialtyStart Date End Date Sergio Connell MD [address] [place] [facility] [place] [address] PCP - GeneralFamily Mlazxmng25/16/23Team MemberRelationshipSpecialtyStart Date End Date Sergio Connell MD [address] [place] [facility] [place] [address] PCP - GeneralFamily Qabnvreb84/16/23Team MemberRelationshipSpecialtyStart Date End Date Sergio Connell MD [address] [place] [facility] [place] [address] PCP - GeneralFamily Ddjjhmzh34/16/23Team MemberRelationshipSpecialtyStart Date End Date Sergio Connell MD [address] [place] [facility] [place] [address] PCP - GeneralFamily Mrgbeonf61/16/23Team MemberRelationshipSpecialtyStart Date End Date Sergio Connell MD [address] [place] [facility] [place] [address] PCP - GeneralFamily Lmrgplnd95/16/23Team MemberRelationshipSpecialtyStart Date End Date Sergio Connell MD [address] [place] [facility] [place] [address] PCP - GeneralFamily Ipcmbnak74/16/23Team MemberRelationshipSpecialtyStart Date End Date Sergio Connell MD [address] [place] [facility] [place] [address] PCP - [facility]05/24/23Team MemberRelationshipSpecialtyStart Date End Date Sergio Connell MD [address] [place] [facility] [place] [address] PCP - [facility]05/24/23 Team Status: Inactive Member Role Status Dates Sergio Connell MD Primary Care Provider Active Start: November 04, 2024 End: November 04, 2024Celine Lazo ProviderActiveStart: November 04, 2024 End: November 04, 2024 Team Status: Active Member Role Status Dates Sergio Connell MD Primary Care Provider Active Start: December 02, 2024 Celine Burrows ProviderActiveStart: December 02, 2024 Team Status: Active Member Role Status Dates Sergio Connell MD Primary Care Provider Active Start: December 05, 2024 Sawyer Welch ProviderActiveStart: December 05, 2024 Team Status: Inactive Member Role Status Dates Sergio Connell MD Primary Care Provider Active Start: December 22, 2024 End: December 22, 2024Osmin Toro ProviderActiveStart: December 22, 2024 End: December 22, 2024 Team Status: Inactive Member Role Status Dates Sergio Connell MD Primary Care Provider Active Start: December 30, 2024 End: December 30, 2024Osmin Toro ProviderActiveStart: December 30, 2024 End: December 30, 2024 Team Status: Active Member Role Status Dates Sergio Connell MD Primary Care Provider Active Start: January 14, 2025 Celine Burrows ProviderActiveStart: January 14, 2025 Team Status: Inactive Member Role Status Dates Sergio Connell MD Primary Care Provider Active Start: January 15, 2025 End: January 15Sawyer Caraballo ProviderActiveStart: January 15, 2025 End: January 15, 2025Team MemberRelationshipSpecialtyStart DateEnd Date Sergio Connell MD [address] [place] [address] PCP - [facility]05/24/23Team MemberRelationshipSpecialtyStart Date End Date Sergio Connell MD [address] [place] [address] [facility] - [facility] Inutoixd83/16/23 (unrecognized sect ion and content) No Status Records FoundNo Status Records FoundNo Status Records FoundNo Status Records FoundNo Status Records FoundNo Status Records FoundNo Status Records FoundNo Status Records FoundNo Status Records FoundNo Status Records FoundNo Status Records FoundNo Status Records FoundNo Status Records Found INFORMATION SOURCE (unrecogn ized section and content) DATE CREATED AUTHOR 06/30/2022 [facility] DATE CREATED AUTHOR AUTHOR'S ORGANIZ ATION 08/17/2023 [facility] DATE CREATED AUTHOR AUTHOR'S ORGANIZ ATION 02/19/2024 [facility] DATE CREATED AUTHOR AUTHOR'S ORGANIZ ATION 03/19/2024 [facility] DATE CREATED AUTHOR AUTHOR'S ORGANIZ ATION 03/22/2024 [facility] DATE CREATED AUTHOR AUTHOR'S ORGANIZ ATION 05/27/2024 [facility] DATE CREATED AUTHOR AUTHOR'S ORGANIZ ATION 03/20/2025 [facility] EPIC DATE CREATED AUTHOR AUTHOR'S ORGANIZ ATION 04/02/2025 [facility] REASON FOR VISIT (unrecogniz ed section and content) JczdvxFeqzushjRmsk-axEsjlweZpgytjtoZdpw-jnO RA JAZIEL 03/18/24SpecialtyDiagnoses / ProceduresReferred By ContactReferred To ContactNeurology Diagnoses Carpal tunnel syndrome, right upper limb Procedures FL NERVE CONDUCTION STUDIES 9-10 STUDIES FL NEEDLE EMG EA EXTREMTY W/PARASPINL AREA COMPLETE Bunny Hewitt DO [address] [place] [address] Soni Angelo, DO [address] [place] [address] Referral IDStatusReasonStart DateExpiration DateVisits RequestedVisits [id number] Goals (unrecognized section and content) Goals may [...] BE BASED ON THE PRIMARY CLINICAL RECORDS. [employer] provides no warranty or guarantee of the accuracy or completeness of information in this document.
--- OUTSIDE RECORDS SUMMARY | 2025-06-03 07:35 | XMS_ITS | Clinical Summary ---
Author Organization [facility] Healthcare Address [address] [facility] [place] [address] Care Team Providers Care Finished Cigar Maker Name Role Phone Regina Hammer MD Primary Care Provider [phone] Allergies Active AllergyReactionsCriticalityNoted DateCommentsCodeineNausea Only,Unknown 10/27/2022 Other Reaction(s): Nausea present Totdgpvhvtgjvlez19/21/2023 Family history of severe reaction Medications MedicationSigDispense QuantityRefillsLast FilledStart DateEnd DateStatus coenzyme Q-10 10 MG capsule Take 10 mg by mouth in the morning.Active hydroCHLOROthiazide (HYDRODiuril) 25 MG tablet Take 25 mg by mouth in the morning.09/25/2022ctive levothyroxine (Synthroid, Levoxyl) 88 MCG tablet Take 88 mcg by mouth in the morning.08/16/2022ctive rosuvastatin (Crestor) 20 MG tablet Take 20 mg by mouth in the morning.08/16/2022ctive tamsulosin (Flomax) 0.4 MG 24 hr capsule Take 0.4 mg by mouth in the morning and 0.4 mg before bedtime.Active tadalafil (Cialis) 20 MG tablet 02/03/2024ctive cetirizine (ZyrTEC) 10 MG tablet Take 10 mg by mouth DailyActive Active Problems ProblemNoted DateDiagnosed DateBPH with urinary uayhmxjiyyj55/19/2023alculus of drhcsz2805/27/2023 Overview (05/27/2023): in 2012 Elevated PSA05/27/2023History of skin dpicrb5905/27/2023Hx of hypercholesterolemia 05/27/20232164Mvpbjnxxwenu45/19/9406Kmmhbbkgmjuvqs81/19/3825Rpbbzguxuhodwl38/19/2023 Sxxdqqdz01/19/2023Osteoarthritis of knee05/27/2023 Encounters DateTypeDepartmentCare BlbnTbdguvpegka41/10/2025 9:15 AM EDTOffice Visit [facility] [address] [place] [address] Gorge Hewitt DO S/P total right hip arthroplasty (Primary Dx); History of left hip yksamxzfajy91/10/2025 8:25 AM EDTAncillary Procedure [facility] [address] [place] [address] 03/18/20255210Ogrgqr32/05/2025Travelfrom Last 3 Months Family History Medical HistoryRelationNameCommentsHeart diseaseBrotherDiabetesFatherJimHeart diseaseFatherJimHeart diseaseMotherRelationNameStatusCommentsBrotherDaughter AliveFatherJimDeceasedMaternal GrandfatherDeceasedMaternal GrandmotherDeceased MotherAlivePaternal GrandfatherDeceasedPaternal GrandmotherDeceasedSiblingAlive4 alive 1 Social History Tobacco UseTypesPacks/DayYears UsedDateSmoking Tobacco: NeverSmokeless Tobacco: Never Tobacco Cessation:Counseling Given: Not Answered Alcohol UseStandard Drinks/WeekCommentsYes2 (1 standard drink = 0.6 oz pure alcohol)caffeine intake : coffee 2 cupsSex and Gender InformationValueDate RecordedSex Assigned at BirthNot on fileLegal IroVnhi5709/20/2022 7:32 PM EDT Gender IdentityNot on fileSexual OrientationNot on file Last Filed Vital Signs Vital SignReadingTime TakenCommentsBlood Pbrljeel364/8411/17/2024 10:29 AM EDT Rjjsv942411/17/2024 10:29 AM EZMFosgfcwidnb44.3 ??C (97.4 ??F)01/07/2024 8:35 AM EDTRespiratory Rate--Oxygen Fdyrahqtuf99%11/17/2024 10:29 AM EDTInhaled Oxygen Concentration--Hpyowb808 kg (240 lb)03/18/2025 9:10 AM FHRNnhkiu590.1 cm (5' 10.5 )03/18/2025 9:10 AM EDTBody Mass Index33.95003/18/2025 9:10 AM EDT Plan of Treatment Health MaintenanceDue DateLast DoneCommentsCT Pafempqvjazk67/02/1951FIT-DNA 1950FIT1950FOBT1950 9150Omoyqdeoqkvfy55/02/1951neumococcal Vaccine: 65+ Years (1 of 1 - PCV)2000COVID-19 Vaccine ( season) , 05/02/2021, 09/15/2020, Additional history existsInfluenza Vaccine (#1), 06/07/2022, 06/24/2021, Additional history crrjilLarmyxnklge48/22/203306/olorectal Cancer Qteqgnkdn80/22/2033 Procedures Procedure NamePriorityDate/TimeAssociated DiagnosisCommentsXR HIPS BILATERAL 2 VW WITH OR WITHOUT WYHAUATwxxpzb18/10/2025 8:23 AM EDT S/P total right hip arthroplasty History of left hip replacement from Last 3 Months Results * XR hips bilateral 2 views (03/18/2025 8:23 AM EDT)Anatomical RegionLaterality ModalityLower Extremities, HipBilateralRadiographic ImagingSpecimen (Source) Anatomical Location / LateralityCollection Method / VolumeCollection Time Received Time Narrative 03/18/2025 9:34 AM EDT Imaging Result: Xrays taken in the office today saved to the permanent record, 4 views including AP pelvis and bilateral laterals of the hips, show stable position and alignment of the JAZIEL prostheses. ?? No sign of loosening, fracture or catastrophic wear. ??Limb lengths are appropriate. Authorizing ProviderResult TypeResult StatusDavid A Pocos DOIMG XR PROCEDURES Final Result from Last 3 Months Insurance Care Teams Team MemberRelationshipSpecialtyStart DateEnd Date Regina Hammer MD [address] [place] [address] [place] [address] PCP - GeneralFamily Zswsjsoj63/16/23
--- OUTSIDE RECORDS SUMMARY | 2025-06-03 07:35 | XMS_ITS | Clinical Summary ---
Author Organization [facility] Address [address] [place] [address] Care Team Providers Care Economist Research Assistant Name Role Phone Unavailable Primary Care Provider Unavailabl e Social History Tobacco UseTypesPacks/DayYears UsedDateSmoking Tobacco: Never AssessedSex and Gender InformationValueDate RecordedSex Assigned at BirthNot on fileLegal Sex Male01/15/2025 12:10 AM EDTGender IdentityNot on fileSexual OrientationNot on file Plan of Treatment Not on file
--- OUTSIDE RECORDS SUMMARY | 2025-06-03 07:35 | XMS_ITS | Clinical Summary ---
Author Organization Pin digital tem Address [facility] [address] [place] [address] Care Team Providers Care Seed Buyer Name Role Phone Regina Hammer MD Primary Care Provider [phone] Allergies Active AllergyReactionsCriticalityNoted YkxzAnksybzkCiagqeuOcnzbc23/21/2023 Vhuhepszcstsgrcl70/21/2023 Family history of severe reaction Oxycodone-AcetaminophenNausea And Trpysgfo61/21/2023 Can take [place] or hydrocodone without issue HstqpaiytunFozqc05/21/2023 As child, has taken Penicillin recently and done fine Medications MedicationSigDispense QuantityRefillsLast FilledStart DateEnd DateStatus hydroCHLOROthiazide (HYDRODIURIL) 25 mg tablet Take 1 tablet (25 mg total) by mouth daily.09/25/2022ctive levothyroxine (SYNTHROID, LEVOTHROID) 88 MCG tablet Take 1 tablet (88 mcg total) by mouth in the morning.08/16/2022ctive rosuvastatin (CRESTOR) 20 mg tablet Take 1 tablet (20 mg total) by mouth in the morning.08/16/2022ctive tamsulosin (FLOMAX) 0.4 mg capsule Take 1 capsule (0.4 mg total) by mouth in the morning and at bedtime.04/14/2022 Active coenzyme Q10 10 mg capsule Take 1 capsule (10 mg total) by mouth in the morning.Active loratadine (CLARITIN) 10 mg tablet Take 1 tablet (10 mg total) by mouth in the morning.Active Active Problems No known active problems Family History Medical HistoryRelationNameCommentsHeart attackBrotherage 54Heart diseaseFather Heart diseaseMotherBreast cancerSisterRelationNameStatusCommentsBrotherDeceased FatherDeceasedMotherDeceasedSisterAlive Social History Tobacco UseTypesPacks/DayYears UsedDateSmoking Tobacco: NeverSmokeless Tobacco: NeverAlcohol UseStandard Drinks/WeekCommentsYes0 (1 standard drink = 0.6 oz pure alcohol)sociallyChildcareAnswerDate ObkmmnlrMxoifrddxJufjuyn83/12/2019Employment AnswerDate SnvupygtDtpzbfdpmtDodnyhi46/12/2019Hunger ScreeningAnswerDate RecordedWithin the past 12 months we worried whether our food would run out before we got money to buy more.Never True10/27/2022Within the past 12 months the food we bought just didn't last and we didn't have money to get more.Never True3Purpose - LifeAnswerDate RecordedPurpose and direction in life Lqlzlsk5708/19/2020ex and Gender InformationValueDate RecordedSex Assigned at BirthNot on fileLegal DzmSchk7210/23/2016 11:41 AM EDTGender IdentityNot on file Sexual OrientationNot on file Last Filed Vital Signs Vital SignReadingTime TakenCommentsBlood Nepiqjmn351/80012/28/2022 8:20 AM EDT Zontq055712/28/2022 8:05 AM JIZWystcqedaja89.8 ??C (98.2 ??F)12/28/2022 6:40 AM EDTRespiratory Onhd770112/28/2022 8:05 AM EDTOxygen Tljbjebuik58%12/28/2022 8:05 AM EDTInhaled Oxygen Concentration--Yttuon376.6 kg (235 lb)12/28/2022 6:40 AM EAIOkqage448.8 cm (5' 10 )12/28/2022 6:40 AM EDTBody Mass Index33.72012/28/2022 6:40 AM EDT Plan of Treatment Health MaintenanceDue DateLast DoneCommentsDepression Qdgbkqmdp94/02/1963Tobacco Rgcmbbsmy12/02/1963DTaP,Tdap and Td Vaccines (1 - Tdap)1969Zoster (Shingles) Vaccine (1 of 2)2000Fall Risk Zfvaglksu29/02/2016Adult BMI Wlcpycqpy403COVID-19 Vaccine ( season)2025 04/03/2022, 05/02/2021, 09/15/2020, Additional history existsInfluenza Vaccine 511/, 06/24/2021, 04/25/2019, Additional history existsRSV ( or age 60+ yrs) (1 - 1-dose 75+ series)12/08/20259807Tshegneqrty77/22/2028 12/28/2022, 12/28/2022, 09/25/2012 Medical Devices Not on file Procedures Procedure NamePriorityDate/TimeAssociated DiagnosisCommentsPROVATION COLONOSCOPY Mzhkcjo4812/28/2022 6:39 AM EDT from Last 3 Months or Most Recently Relevant to Health Maintenance Results * Colonoscopy Report (12/28/2022 6:39 AM EDT)Specimen (Source)Anatomical Location / LateralityCollection Method / VolumeCollection TimeReceived Time Narrative SYSTEMGENERATED, DOCUMENTATION - 12/28/2022 6:39 AM EDT This order has been auto-finalized for image and report archival in PACs. *For full report details, please reach out to your physician. ??This image is visible to you in MyChart.* Authorizing ProviderResult TypeResult StatusMichael E Grillis DOIMG OR IMG ORDERABLESFinal Result from Last 3 Months or Most Recently Relevant to Health [place] [address] Care Teams Team MemberRelationshipSpecialtyStart DateEnd Date Regina Hammer MD [address] [place] [address] [facility]09/17/17
--- NOTE | 2025-06-03 07:48 | CT_ITS ---
The [address] [address] Patient Name: GERRY LAY MRN: [id number] date: 1950 Sex: M Assigned Patient Location: LAB Current Patient Location: LAB Accession/Order Number: [id number] Exam Date: 06/03/2025 08:05 Report Date: 06/03/2025 08:56 At the request of: SERGIO CONNELL MD Procedure: CT chest w con CT CHEST WITH INTRAVENOUS CONTRAST: CLINICAL HISTORY: Follow-up left lower lobe lung nodule COMPARISON: 05/27/2024 TECHNIQUE: Spiral images were obtained through the chest following intravenous administration of 100 mL of Omnipaque 300. Images were reviewed using both narrow and wide window settings. This CT exam was performed using one or more following dose reduction techniques: Automated exposure control, adjustment of the mA and/or kV according to patient size, or use of iterative reconstruction technique. FINDINGS: The heart is not enlarged. There is no pericardial effusion. There is coronary artery disease. Slight dilatation ascending aorta is again noted with diameter of approximately 4.3 cm. No dissection is seen. There is no mediastinal or hilar lymphadenopathy. The thyroid lobes are slightly heterogeneous. The bony structures are intact. Degenerative changes are visualized at the spine. Mild dependent atelectasis is seen. The previously described area of groundglass density/nodularity at the anterior left lower lobe is again seen and not significantly changed. No new nodularity is present. There is no developing consolidation, pleural effusion or pneumothorax. Limited cuts through the upper abdomen show possible fatty liver. CT/CT chest w con IMPRESSION: STABLE CT CHEST Impression dictated by: Kirstin Moore M.D. 06/03/2025 8:56 AM Dictation Location: [place] [address] Electronically authenticated by: [id number] Y Date: 06/03/2025 08:56
[2025-06-03 07:56] LABS: Estimated GFR (African America >60 (>=60 mL/min/1.73m^2); Estimated GFR (Non-African Ame 56 (>=60 mL/min/1.73m^2)
== END 2025-06-03 07:33 | disposition home or self-care (01) ==
LOC: LAB 07:32
PROVIDERS: Pathology Anatomic Pathology & Clinical Pathology; Family Provider Optometrist; PCP Family Medicine; Visit Provider Family Medicine
DX: Z01.818 Encounter for other preprocedural examination (principal); R91.1 Solitary pulmonary nodule
CPT/HCPCS: 36415; 71260; 82565; Q9967

== ENCOUNTER 2025-06-22 07:55 | Outpatient (OUT) | payer MEDICARE, OTHER, SELFPAY ==
--- OUTSIDE RECORDS SUMMARY | 2025-06-19 04:08 | XMS_ITS | Continuity of Care Document ---
Author Organization [facility] Address [address] [place] [address] Phone Care Team Providers Care Buffer Chrome Name Role Phone Regina Hammer MD Primary Care Provider Owen Chambers MD Attending Provider Unavailab Regina Dickerson MD Attending Provider [phone] Care Teams Patient Care Team Team Status: Active Member Role/Relationship Status Dates Regina Hammer MD Primary Care Provider Active Patient Care Team Team Status: Active Member Role/Relationship Status Dates Regina Hammer MD Primary Care Provider Active Start: June 03, 2025 Celine Anderson ProviderActiveStart: June 03, 2025 Patient Care Team Team Status: Inactive Member Role/Relationship Status Dates Regina Hammer MD Primary Care Provider Active Start: June 19, 2025 End: June 19, 2025Celine Lazo ProviderActiveStart: June 19, 2025 End: June 19, 2025 Chief Complaint and Reason for Visit Chief Complaint Admit Date Wellness June 19, 2025 8:27am Reason for Visit Admit Date Acquired hypothyroidism June 19 025 8:27am HTN (hypertension) June 19, 2025 8:27am Hyperlipidemia June 19, 2025 8:27am Social History Smoking Status Status Start Date End Date Date of Observa tion Never smoked tobacco (finding) June 14, 2023 8:35am Observation Status Observation Response Date of Response Legal Sex [facility] (finding) [facility] 1950 Family History Relationship Condition Age at Onset Recorded Date/T abelardo brother Heart disease Unknown DeceasedUnknownfatherDeceasedUnknownDisorder of lungUnknown Problems Active Problems Problem Diagnosis/Recorded Date Onset Date Stat us Acute right flank pain November 04, 2024 9:13am Unknown Active Left lower lobe pulmonary nodule November 28, 2023 9:33am Unknown Active Left lower lobe pulmonary nodule November 03, 2024 3:34 pm Unknown Active Medicare annual wellness vis it, subsequent June 16, 2024 9:42pm Unknown Active Acquired hypothyroidism June 16, 2024 8:08am Unkn own Active Memory loss December 22, 2024 9:53am Unknown Activ e Hyperlipidemia November 28, 2023 9:23am Unknown Acti ve Hypothyroid November 28, 2023 9:23am Unknown Active Kidney stones June 16, 2024 8:08am Unknown A ctive Carotid artery bruit June 26, 2024 1:19pm Unknow n Active Cognitive dysfunction January 15, 2025 8:42am Unknown Active Family history of dementia December 22, 2024 9:53am Unkn own Active Memory changes June 16, 2024 9:07am Unknown Active Carotid artery disease June 16, 2024 8:57am Unkno wn Active Retinal hemorrhage, left eye June 16, 2024 8:57am Unknown Active HTN (hypertension) November 28, 2023 9:23am Unknown Active Medications Medication Status Dose Units Route Directions Qty Days Refills S tart Date Stop Date End Date Reason(s) Instructions Adherence Levothyroxine 88 mcg tablet Discontinued 0 .ROUTE.FJVGIQL624Sba 2023 12:08pmAugust 2023 11:06amTAKE 1 TABLET ONCE DAILYLevothyroxine 88 mcg tabletDiscontinued0.ROUTE.TBGVAAP916Tvhyge 2023 11:06amApril 2024 8:12amTAKE 1 TABLET ONCE DAILYHydrochlorothiazide 25 mg oyriowNyymxxsrrokc45ALJRKoegn197Xsojr 2024 8:12amJune 2024 11:24am FreeTextSig: TAKE 1 TABLET DAILY; Note: Source Status: Continue; Provider: Harman Tapia ( )Levothyroxine 88 mcg tabletDiscontinued0.ROUTE .XIXDRVM440Yeywf 2024 8:12amApril 2024 11:55amTAKE 1 TABLET ONCE DAILYRosuvastatin 20 mg diawnrPguepbbvlrzc13CGANFqdmn776Cisyb 2024 8:12am January 05, 2025 11:24amLevothyroxine 88 mcg tabletDiscontinued0.ROUTE.VSMCANJ672 October 16, 2024 11:55amApril 2024 3:44pmTAKE 1 TABLET ONCE DAILY Levothyroxine 88 mcg tabletDiscontinued0.ROUTE.DKFXKRG487Pjxgk 2024 3:44pm January 28, 2025 1:11pmTAKE 1 TABLET ONCE DAILYHydrochlorothiazide 25 mg tablet Msdqrpqnsmkc84FMSHCfdrm158Mqfj 2024 11:24amSeptember 2024 7:44am FreeTextSig: TAKE 1 TABLET DAILY; Note: Source Status: Continue; Provider: Harman Tapia ( )Rosuvastatin 20 mg zvqigeLukjugqasgst20NMYHMfwlo 900June 2024 11:24amSeptember 2024 7:44amLevothyroxine 88 mcg tablet Discontinued0.ROUTE.XDIXLRZ634Ggqf 2024 1:11pmOctober 2024 9:19amTAKE 1 TABLET ONCE DAILYRosuvastatin 20 mg dcrjkkSircfurdwhpk98HHYSFefsz037Aeyxygrrt 2024 7:44amNovember 2024 9:54amHydrochlorothiazide 25 mg tablet Nklwsr33PBTWGbusb082Lnmnaclwy 2024 7:44amFreeTextSig: TAKE 1 TABLET DAILY; Note: Source Status: Continue; Provider: Harman Tapia ( )Complies with drug therapyLevothyroxine 88 mcg tabletActive0.ROUTE.SVTYXBO929Dvflqkn 2024 9:19amTAKE 1 TABLET ONCE DAILYComplies with drug therapyRosuvastatin 20 mg rkqpboLtjpxr98KZMJGiikm563Ibqmsryz 2024 9:54amComplies with drug therapy Tadalafil 5 mg nauilfYstoyt3ZBLFTbcteQsdylizl 2023 12:00amComplies with drug therapyLevothyroxine 88 mcg qoaeobHmcmzekifwza58LASFSWdvvcHay 2023 11:00pmMay 2023 12:08pmRosuvastatin 20 mg rkpvdwAwnsfvncjgla56VOQXSwktiRuf 2023 11:00pmApril 2024 8:12amHydrochlorothiazide 25 mg tablet Jsawmblzgbze53QWJZHsortJbu 2023 11:00pmApril 2024 8:12amFreeTextSig: TAKE 1 TABLET DAILY; Note: Source Status: Continue; Provider: Harman Tapia ( )Tamsulosin 0.4 mg capsuleActiveMGPOMay 2023 11:00pm FreeTextSig: Orally; Note: Source Status: Taking; Provider: Harman Tapia ( )Complies with drug therapy Immunizations Immunization Event Date Not Given Reason Dose Number Lens Mounter Lot Number Reason(s) Given Vaccine Information Statement (VIS) Detail Administration Location [facility] mRNA-[facility]ly [facility] ([facility]) May 02, 2021 influenza, unspecified formulationDecember 2014influenza, unspecified formulationJanuary 2018influenza, unspecified formulationSeptember 2019influenza, unspecified formulationDecember 2022Tetanus, Diphtheria adult, 5 Lf pres free absSeptember 2012 Relevant Diagnostic Tests and/or Laboratory Data Laboratory Results Test Collection Date/Time Result Date/Time Result Interpretation Reference Range Result Comment Performing Site Creatinine June 03, 2025 7:41am June 03, 2025 7:41am 1.26 mg/dL 0.70-1.30Estimated GFR ()June 03, 2025 7:41amNove2024 7:41am>60>=60 mL/min/1.73m 2Estimated GFR (Non- June 03, 2025 7:41amNove2024 7:58ad40Vuqvp low normal>=60 mL/min/1.73m 2 Vital Signs Vital Reading Result Reference Range Collection Date/Time Height 70 [in_i] June 19, 2025 8:21ieMncvdg244.14 kgDece2024 8:32amHeart Rate73 /sql18-919UfpvrjnqJune 19, 2025 8:32amBP Qwqqvojc632 mm[Hg]100-140June 19, 2025 8:32amBP Rrruyohpt42 mm[Hg]60-100June 19, 2025 8:32amBMI (Body Mass Index)33.5 kg/t8WziwtjypJune 19, 2025 8:32am Advance Directives Advance Directive Response Recorded Date/ Time Advance Directives No June 12, 2023 12:51pm Insurance Providers Guarantor Ruperto Poole Address [address] [facility] [address] [place] [address] [place] [address]Crgeuyo Info.Home Phone: Payer Group Member ID Coverage Type Subscriber Relationship to Subscriber Effective Date Expiration Date Medicare [id number] W Dwyer Id: [id number] [address] [facility], [place] [address] Home Phone: SelfRegular Insurance [address] [place] [id number] Work Phone: [phone] W Dwyer Id: [id number] [address] [place] [address] [place] [address] Home Phone: Self Encounters Encounter Location(s) Arrival/Admit Date Discharge/Departure Date Discharge/Departure Disposition Provider(s) Non-patient / [facility]-visit -[facility] N ovember 2024 7:41am Owen Chambers MDDeparted Physician/Provider [facility] 8:27amDe2024 9:06amDischarged to home care or self care (routine discharge)Regina Hammer MD Recent Diagnosis Onset Date Admit Date Acquired hypothyroidism Unknown June 19, 2025 8:27am HTN (hypertension) Unknown June 8:27am Hyperlipidemia Unknown June 19 8:27am Assessments Diagnosis Onset Date Resolution Status Admit Date Acquired hypothyroidism acuteJune 19, 2025 8:27amHTN (hypertension)acuteJune 19, 2025 8:27am HyperlipidemiaacuteJune 19, 2025 8:27am Plan of Treatment Future Tests Future scheduled test information is unavailable Pending Tests Test Name Ordered Date Scheduled Date Comprehensive Metabolic Panel June 19 8:53am Future Visits Future appointment information is unavailable Future Procedures Procedure Name Ordered Date Scheduled Date Complete Blood Count Auto Diff June 19 8:53am [facility]Alb [facility] 20[facility] 8:53amFree T4 (Free Thyroxine)June 19, 2025 8:53amThyroid Stim Hormone w/RflxDe2024 8:53am Future Medications Future medication information is unavailable Patient Instructions Patient instructions are unavailable
--- OUTSIDE RECORDS SUMMARY | 2025-06-22 07:59 | XMS_ITS | Clinical Summary ---
Author Organization [facility] Address [address] [place] [address] Care Team Providers Care Financial Quantitative Analyst Name Role Phone Unavailable Primary Care Provider Unavailabl e Social History Tobacco UseTypesPacks/DayYears UsedDateSmoking Tobacco: Never AssessedSex and Gender InformationValueDate RecordedSex Assigned at BirthNot on fileLegal Sex Male01/15/2025 12:10 AM EDTGender IdentityNot on fileSexual OrientationNot on file Plan of Treatment Not on file
--- OUTSIDE RECORDS SUMMARY | 2025-06-22 07:59 | XMS_ITS | Clinical Summary ---
Author Organization [employer] tem Address [facility] [address] [place] [address] Care Team Providers Care Academic Computing Director Name Role Phone Regina Hammer MD Primary Care Provider [phone] Allergies Active AllergyReactionsCriticalityNoted GvldIchvlvrhElujelbGpiscx94/21/2023 Qmepzlpafztwlfif96/21/2023 Family history of severe reaction Oxycodone-AcetaminophenNausea And Hwwuwhlu24/21/2023 Can take [place] or hydrocodone without issue OwgosxqzuxzXjovp42/21/2023 As child, has taken Penicillin recently and [...] standard drink = 0.6 oz pure alcohol)sociallyChildcareAnswerDate UpnbdvfaWpzesxisrRdzodwh90/12/2019Employment AnswerDate VlovicbcSozeioxgghDwflwqf08/12/2019Hunger ScreeningAnswerDate RecordedWithin the past 12 months we worried whether our food would run out before we got money to buy more.Never True10/27/2022Within the past 12 months the food we bought just didn't last and we didn't have money to get more.Never True3Purpose - LifeAnswerDate RecordedPurpose and direction in life Mghlnny4508/19/2020ex and Gender InformationValueDate RecordedSex Assigned at BirthNot on fileLegal LkwUcey3510/23/2016 11:41 AM EDTGender IdentityNot on file Sexual OrientationNot on file Last Filed Vital Signs Vital SignReadingTime TakenCommentsBlood Bnwwzchn662/80012/28/2022 8:20 AM EDT Acxel143512/28/2022 8:05 AM QTJBdmijojxkqy23.8 ??C (98.2 ??F)12/28/2022 6:40 AM EDTRespiratory Ihij918312/28/2022 8:05 AM EDTOxygen Xinqwqikon67%12/28/2022 8:05 AM EDTInhaled Oxygen Concentration--Kuiugy968.6 kg (235 lb)12/28/2022 6:40 AM LDXUogugn068.8 cm (5' 10 )12/28/2022 6:40 AM EDTBody Mass Index33.72012/28/2022 6:40 AM EDT Plan of Treatment Health MaintenanceDue DateLast DoneCommentsDepression Jxrwyyzel09/02/1963Tobacco Cldiszbll55/02/1963DTaP,Tdap and Td Vaccines (1 - Tdap)1969Zoster (Shingles) Vaccine (1 of 2)2000Fall Risk Fvjokyjxi30/02/2016Adult BMI Rhslanyqk913COVID-19 Vaccine ( season)2025 04/03/2022, 05/02/2021, 09/15/2020, Additional history existsInfluenza Vaccine 511/, 06/24/2021, 04/25/2019, Additional history existsRSV ( or age 60+ yrs) (1 - 1-dose 75+ series)12/08/20255548Tidtsrxqoup98/22/2028 12/28/2022, 12/28/2022, 09/25/2012 Medical Devices Not on file Procedures Procedure NamePriorityDate/TimeAssociated DiagnosisCommentsPROVATION COLONOSCOPY Vwtpfgp1612/28/2022 6:39 AM EDT from Last 3 Months [...] Recently Relevant to Health Maintenance [place] [address] Care Teams Team MemberRelationshipSpecialtyStart DateEnd Date Regina Hammer MD [address] [place] [address] [facility]09/17/17
--- OUTSIDE RECORDS SUMMARY | 2025-06-22 07:59 | XMS_ITS | Clinical Summary ---
Author Organization [facility] Healthcare Address [address] [place] [address] Care Team Providers Care Account Liaison Name Role Phone Regina Hammer MD Primary Care Provider [phone] Allergies Active AllergyReactionsCriticalityNoted DateCommentsCodeineNausea Only,Unknown 10/27/2022 Other Reaction(s): Nausea present Mzfcjxzoevykdjje19/21/2023 Family history of severe reaction Medications MedicationSigDispense [...] Active Problems ProblemNoted DateDiagnosed DateBPH with urinary axnhejlfxah75/19/2023alculus of orymba8505/27/2023 Overview (05/27/2023): in 2012 Elevated PSA05/27/2023History of skin wxzpek6205/27/2023Hx of hypercholesterolemia 05/27/20235210Qxnpjqtfpnva77/19/3309Xurgihkdsgfycd49/19/5364Kzcmhegbmezlbf99/19/2023 Gzpjraal48/19/2023Osteoarthritis of knee05/27/2023 Family History Medical HistoryRelationNameCommentsHeart diseaseBrotherDiabetesFatherJimHeart diseaseFatherJimHeart diseaseMotherRelationNameStatusCommentsBrotherDaughter AliveFatherJimDeceasedMaternal GrandfatherDeceasedMaternal GrandmotherDeceased MotherAlivePaternal GrandfatherDeceasedPaternal GrandmotherDeceasedSiblingAlive4 alive 1 Social History Tobacco UseTypesPacks/DayYears UsedDateSmoking Tobacco: NeverSmokeless Tobacco: Never Tobacco Cessation:Counseling Given: Not Answered Alcohol UseStandard Drinks/WeekCommentsYes2 (1 standard drink = 0.6 oz pure alcohol)caffeine intake : coffee 2 cupsSex and Gender InformationValueDate RecordedSex Assigned at BirthNot on fileLegal LpeEenk1009/20/2022 7:32 PM EDT Gender IdentityNot on fileSexual OrientationNot on file Last Filed Vital Signs Vital SignReadingTime TakenCommentsBlood Wmklqpiv943/8411/17/2024 10:29 AM EDT Pabcc204811/17/2024 10:29 AM LGNEwdrxdphwtg15.3 ??C (97.4 ??F)01/07/2024 8:35 AM EDTRespiratory Rate--Oxygen Ikiwieygzw97%11/17/2024 10:29 AM EDTInhaled Oxygen Concentration--Ncrsss528 kg (240 lb)03/18/2025 9:10 AM GJERttfla992.1 cm (5' 10.5 )03/18/2025 9:10 AM EDTBody Mass Index33.95003/18/2025 9:10 AM EDT Plan of Treatment Health MaintenanceDue DateLast DoneCommentsCT Oslofjbozijg18/02/1951FIT-DNA 1950FIT1950FOBT1950 3577Fihtebwddogpm56/02/1951neumococcal Vaccine: 65+ Years (1 of 1 - PCV)2000COVID-19 Vaccine (2024- season) 509/, 05/02/2021, 09/15/2020, Additional history existsInfluenza Vaccine (#1)512/, 06/07/2022, 06/24/2021, Additional history gyaeljNdjtkghipll94/22/203306/olorectal Cancer Jmpqitvov89/22/2033 Insurance Care Teams Team MemberRelationshipSpecialtyStart DateEnd Date Regina Hammer MD [address] [facility] [place] [id number] PCP - GeneralFamily Rwypwlft71/16/23
[2025-06-22 08:52] LABS: Hematocrit 48.8 % (42.0-54.0); Hemoglobin 16.2 g/dL (14.0-18.0); Immature Granulocytes Abs Auto 0.01 10^3/uL (0.00-0.03); Immature Granulocytes Pct Auto 0.2 % (0.0-0.5); Lymphocytes Absolute Auto 1.4 10^3/uL (1.2-3.8); Mean Corpuscular HGB Conc 33.2 g/dL (29.9-35.2); Mean Corpuscular Hemoglobin 31.6 pg (25.9-34.0); Mean Corpuscular Volume 95.1 fL (80.0-94.0); Platelet Count 152 10^3/uL (150-450); Red Blood Count 5.13 10^6/uL (4.70-6.10); White Blood Count 4.0 10^3/uL (4.0-11.0)
[2025-06-22 09:06] LABS: Alanine Aminotransferase 36 U/L (16-63); Albumin Globulin Ratio 1.1; Albumin Level 3.7 g/dL (3.4-5.0); Alkaline Phosphatase 77 U/L (46-116); Anion Gap 10.7; Aspartate Amino Transferase 30 U/L (15-37); Blood Urea Nitrogen 32.0 mg/dL (7.0-18.0); Calcium 9.1 mg/dL (8.5-10.1); Carbon Dioxide 29.2 mmol/L (21.0-32.0); Chloride 105 mmol/L (98-107); Estimated GFR (African America >60 (>=60 mL/min/1.73m^2); Estimated GFR (Non-African Ame >60 (>=60 mL/min/1.73m^2); Globulin 3.4 g/dL; Glucose 115 mg/dL (74-106); Potassium 3.9 mmol/L (3.5-5.1); Sodium 141 mmol/L (136-145); Thyroid Stimulating Hormone 3.026 uIU/mL (0.358-3.740); Total Protein 7.1 g/dL (6.4-8.2)
== END 2025-06-22 07:56 | disposition home or self-care (01) ==
LOC: LAB 07:57
PROVIDERS: Family Provider Optometrist; PCP Family Medicine; Visit Provider Family Medicine
DX: E03.9 Hypothyroidism, unspecified (principal); E78.2 Mixed hyperlipidemia; I10 Essential (primary) hypertension
CPT/HCPCS: 36415; 80053; 82043; 82570; 84439; 84443; 85025